=== PATIENT | female | born 1940 | race Caucasian/White ===

== ENCOUNTER 2018-03-14 15:31 | Emergency (ER) | payer MEDICARE, SELFPAY ==
[2018-03-14 15:34] VITALS: BP 104/58; PULSE 70; RESP 18; TEMP 37.2; O2SAT 97
--- NOTE | 2018-03-14 15:47 | W.ED.GENAD ---
Discharge Plan Discharge Details Chief Complaint: Urinary Clinical Impression: Cystitis Reason For Visit: dysuria ED Provider: Jason Sethi Disposition Patient Disposition: HOME Home Meds and New Rx's Prescriptions: New nitrofurantoin monohyd/m-cryst [Macrobid] 100 mg capsule 100 mg PO BID Qty: 14 RF: 0 Continue simethicone [Gas Relief] 125 MG capsule 125 mg PO DAILY RF: 0 calcium carbonate 1.5 G tablet 1.5 g PO DAILY RF: 0 docusate sodium [Colace] 100 MG capsule 100 mg PO BID RF: 0 aspirin [Aspirin Low-Strength] 81 MG tablet,chewable 81 mg PO DAILY RF: 0 lorazepam 1 MG tablet 1 mg PO PRN PRNRF: 0 estradiol [Estrace] 42.5 GM cream 42.5 gm VG PRN PRNRF: 0 reatdyco-fmx-QE-lycopen-lutein [Centrum Silver] 1 EACH tablet 1 tab PO DAILY RF: 0 rivastigmine [Exelon] 1 EACH patch 24 hour 1 patch Transdermal DAILY RF: 0 midodrine 5 MG tablet 5 mg PO BID RF: 0 propranolol 10 MG tablet 10 mg PO DAILY PRNRF: 0 lorazepam 1 MG tablet 1 mg PO DAILY PRNRF: 0 fluoxetine [Prozac] 20 MG capsule 20 mg PO DAILY RF: 0 cholecalciferol (vitamin D3) [Vitamin D3] 1,000 UNIT capsule 1,000 unit PO DAILY RF: 0 vitamin O43-hicci acid 1 EACH tablet 1 ea PO DAILY RF: 0 dextromethorphan-guaifenesin [Mucinex DM] 1 EACH tablet extended release 12 hr 1 tab PO PRN PRNRF: 0 prednisone 20 MG tablet 20 mg PO DAILY Qty: 7 RF: 0 albuterol sulfate [ProAir HFA] 200 PUFF HFA aerosol inhaler 1 - 2 puff Inhalation Q6H PRN PRNQty: 1 RF: 0 ropinirole [Requip] 3 MG tablet 1 tab PO DAILY RF: 0 mirtazapine [Remeron] 15 MG tablet 1 tab PO DAILY RF: 0 alendronate [Fosamax] 70 MG tablet 1 tab PO RF: 0 montelukast [Singulair] 10 MG tablet 1 tab PO DAILY RF: 0 omega-3 fatty acids-fish oil [Fish Oil] 1 EACH capsule 1 cap PO DAILY RF: 0 ranitidine HCl [Zantac Maximum Strength] 150 MG tablet 1 tab PO PRN PRNRF: 0 Discharge Instructions Instructions: Urinary Tract Infection in Women (ED) Discharge Data Discharge Physician: Jason Sethi Medical Decision Making MDM Narrative Medical decision making narrative: Patient has had 2 days of burning with urination and frequency. Denies any fevers, back pain or abdomina lpain and has n ocva tenderness and appears well so doubt pyelo or sepsis. will obtain ua to eval for uti labs consistent with uti, remains stable. Will start macrobid, advised she needs to come back to the ED if she develops fevers, persistent vomit or back pain Differential Diagnosis uti, cystitis Lab Data Lab results reviewed: Yes I reviewed the patient's lab results. HPI - General Adult General Mode of arrival: ambulatory. Date/Time Provider Initiated Documentation: 03/14/18 15:41. Limitations to Documentation: no limitations. Information obtained by: patient. History of Present Illness 77 year old F presents to the emergency department with the chief complaint of burning with urination, described as moderate, with intensity rated at 4. Quality is described as burning, and is localized to the genitals (when urinating). Patient reports no radiation. Patient started experiencing this day(s) (2) and it has been constant. No relieving factors improve symptom(s), No exacerbating factors reported . Patient notes no other symptoms.. Patient did receive the following treatments prior to arrival, none Related Data Home Medications Medication Instructions Recorded Confirmed aspirin [Aspirin Low-Strength] 81 mg PO DAILY 12/12/14 08/20/17 calcium carbonate 1.5 g PO DAILY 12/12/14 08/20/17 docusate sodium [Colace] 100 mg PO BID 12/12/14 08/20/17 estradiol [Estrace] 42.5 gm VG PRN PRN 12/12/14 08/02/17 lorazepam 1 mg PO PRN PRN 12/12/14 08/02/17 ovovrehe-ckr-HW-lycopen-lutein 1 tab PO DAILY 12/12/14 08/20/17 [Centrum Silver] rivastigmine [Exelon] 1 patch TRANSDERMAL DAILY 12/12/14 08/20/17 simethicone [Gas Relief] 125 mg PO DAILY 12/12/14 08/20/17 dextromethorphan-guaifenesin 1 tab PO PRN PRN 07/16/16 08/02/17 [Mucinex DM] alendronate [Fosamax] 1 tab PO 08/02/17 mirtazapine [Remeron] 1 tab PO DAILY 08/02/17 08/02/17 montelukast [Singulair] 1 tab PO DAILY 08/02/17 08/20/17 omega-3 fatty acids-fish oil [Fish 1 cap PO DAILY 08/02/17 08/20/17 Oil] ranitidine HCl [Zantac Maximum 1 tab PO PRN PRN 08/02/17 08/02/17 Strength] ropinirole [Requip] 1 tab PO DAILY 08/02/17 08/20/17 cholecalciferol (vitamin D3) 1,000 unit PO DAILY 08/20/17 08/20/17 [Vitamin D3] fluoxetine [Prozac] 20 mg PO DAILY 08/20/17 08/20/17 lorazepam 1 mg PO DAILY PRN 08/20/17 08/20/17 midodrine 5 mg PO BID 08/20/17 08/20/17 propranolol 10 mg PO DAILY PRN 08/20/17 08/20/17 vitamin B43-vsnxj acid 1 ea PO DAILY 08/20/17 08/20/17 Previous Rx's Medication Instructions Recorded albuterol sulfate [ProAir HFA] 1 - 2 puff INHALATION Q6H PRN PRN 07/16/16 #1 inh prednisone 20 mg PO DAILY #7 tablet 07/16/16 nitrofurantoin monohyd/m-cryst 100 mg PO BID #14 cap 03/14/18 [Macrobid] Allergies Allergy/AdvReac Type Severity Reaction Status Date / Time rivastigmine [From Exelon] Allergy Mild Nausea Unverified 03/14/18 15:36 donepezil HCl [From Aricept] Allergy Unverified 03/14/18 15:36 sertraline Allergy Unverified 03/14/18 15:36 General Stated Complaint: Urinary KAILASH: 4 Review of Systems Review of Systems All systems reviewed & are unremarkable except as noted in HPI and below Constitutional Denies chills, Denies fever(s) and Denies weakness Eyes Patient Denies loss of vision ENT Denies change in voice Cardiovascular Denies chest pain and Denies dyspnea Respiratory Denies dyspnea Gastrointestinal Denies abdominal pain, Denies nausea and Denies vomiting Genitourinary Reports dysuria Musculoskeletal Denies joint swelling Integumentary/Breasts Denies rash Neurologic Denies loss of vision and Denies weakness Psychiatric Denies depression Endocrine Denies cold intolerance and Denies heat intolerance Allergic/Immunologic Reports urticaria PFSH Social History Smoking/Tobacco Use Status: Never Exam Const General: no acute distress Orientation: alert HENMT Head: normal to inspection Ears: external ears normal General nose exam: external nose normal Mouth: moist mucous membranes Eyes General: appearance normal, both eyes and all related structures Neck Neck: normal visual inspection Resp Effort & Inspection: normal respiratory effort and able to speak in complete sentences Cardio Rate: regular rate GI Palpation: soft and nontender Back/Spine/Pelvis Back: no CVA tenderness Skin General skin exam: no rashes or lesions noted Neuro General: alert and oriented x3 Extrem General: normal to inspection Psych Mental Status: mental status grossly normal Course Vital Signs Temperature 37.2 C 03/14/18 15:34 Pulse 70 03/14/18 15:34 Respiratory Rate 18 03/14/18 15:34 Blood Pressure 104/58 L 03/14/18 15:34 Pulse Oximetry 97 03/14/18 15:34 Temperature 37.2 C 03/14/18 15:34 Pulse 70 03/14/18 15:34 Respiratory Rate 18 03/14/18 15:34 Blood Pressure 104/58 L 03/14/18 15:34 Pulse Oximetry 97 03/14/18 15:34
--- NOTE | 2018-03-14 15:50 | ED.GENADUL_ITS ---
Discharge Plan Discharge Details Chief Complaint: Urinary Clinical Impression: Cystitis Reason For Visit: dysuria ED Provider: Jason Sethi Disposition Patient Disposition: HOME Home Meds and New Rx's Prescriptions: New nitrofurantoin monohyd/m-cryst [Macrobid] 100 mg capsule 100 mg PO BID Qty: 14 RF: 0 Continue simethicone [Gas Relief] 125 MG capsule 125 mg PO DAILY RF: 0 calcium carbonate 1.5 G tablet 1.5 g PO DAILY RF: 0 docusate sodium [Colace] 100 MG capsule 100 mg PO BID RF: 0 aspirin [Aspirin Low-Strength] 81 MG tablet,chewable 81 mg PO DAILY RF: 0 lorazepam 1 MG tablet 1 mg PO PRN PRNRF: 0 estradiol [Estrace] 42.5 GM cream 42.5 gm VG PRN PRNRF: 0 husyngwe-lzt-DH-lycopen-lutein [Centrum Silver] 1 EACH tablet 1 tab PO DAILY RF: 0 rivastigmine [Exelon] 1 EACH patch 24 hour 1 patch Transdermal DAILY RF: 0 midodrine 5 MG tablet 5 mg PO BID RF: 0 propranolol 10 MG tablet 10 mg PO DAILY PRNRF: 0 lorazepam 1 MG tablet 1 mg PO DAILY PRNRF: 0 fluoxetine [Prozac] 20 MG capsule 20 mg PO DAILY RF: 0 cholecalciferol (vitamin D3) [Vitamin D3] 1,000 UNIT capsule 1,000 unit PO DAILY RF: 0 vitamin X21-mrykh acid 1 EACH tablet 1 ea PO DAILY RF: 0 dextromethorphan-guaifenesin [Mucinex DM] 1 EACH tablet extended release 12 hr 1 tab PO PRN PRNRF: 0 prednisone 20 MG tablet 20 mg PO DAILY Qty: 7 RF: 0 albuterol sulfate [ProAir HFA] 200 PUFF HFA aerosol inhaler 1 - 2 puff Inhalation Q6H PRN PRNQty: 1 RF: 0 ropinirole [Requip] 3 MG tablet 1 tab PO DAILY RF: 0 mirtazapine [Remeron] 15 MG tablet 1 tab PO DAILY RF: 0 alendronate [Fosamax] 70 MG tablet 1 tab PO RF: 0 montelukast [Singulair] 10 MG tablet 1 tab PO DAILY RF: 0 omega-3 fatty acids-fish oil [Fish Oil] 1 EACH capsule 1 cap PO DAILY RF: 0 ranitidine HCl [Zantac Maximum Strength] 150 MG tablet 1 tab PO PRN PRNRF: 0 Discharge Instructions Instructions: Urinary Tract Infection in Women (ED) Discharge Data Discharge Physician: Jason Sethi Medical Decision Making MDM Narrative Medical decision making narrative: Patient has had 2 days of burning with urination and frequency. Denies any fevers, back pain or abdomina lpain and has n ocva tenderness and appears well so doubt pyelo or sepsis. will obtain ua to eval for uti labs consistent with uti, remains stable. Will start macrobid, advised she needs to come back to the ED if she develops fevers, persistent vomit or back pain Differential Diagnosis uti, cystitis Lab Data Lab results reviewed: Yes I reviewed the patient's lab results. HPI - General Adult General Mode of arrival: ambulatory . Date/Time Provider Initiated Documentation: 03/14/18 15:41 . Limitations to Documentation: no limitations . Information obtained by: patient . History of Present Illness 77 year old F presents to the emergency department with the chief complaint of burning with urination, described as moderate, with intensity rated at 4. Quality is described as burning, and is localized to the genitals (when urinating). Patient reports no radiation. Patient started experiencing this day(s) (2) and it has been constant. No relieving factors improve symptom(s) , No exacerbating factors reported . Patient notes no other symptoms.. Patient did receive the following treatments prior to arrival, none Related Data Home Medications Medication Instructions Recorded Confirmed aspirin [Aspirin Low-Strength] 81 mg PO DAILY 12/12/14 08/20/17 calcium carbonate 1.5 g PO DAILY 12/12/14 08/20/17 docusate sodium [Colace] 100 mg PO BID 12/12/14 08/20/17 estradiol [Estrace] 42.5 gm VG PRN PRN 12/12/14 08/02/17 lorazepam 1 mg PO PRN PRN 12/12/14 08/02/17 kdbaxxdb-zvp-FX-lycopen-lutein 1 tab PO DAILY 12/12/14 08/20/17 [Centrum Silver] rivastigmine [Exelon] 1 patch TRANSDERMAL DAILY 12/12/14 08/20/17 simethicone [Gas Relief] 125 mg PO DAILY 12/12/14 08/20/17 dextromethorphan-guaifenesin 1 tab PO PRN PRN 07/16/16 08/02/17 [Mucinex DM] alendronate [Fosamax] 1 tab PO 08/02/17 mirtazapine [Remeron] 1 tab PO DAILY 08/02/17 08/02/17 montelukast [Singulair] 1 tab PO DAILY 08/02/17 08/20/17 omega-3 fatty acids-fish oil [Fish 1 cap PO DAILY 08/02/17 08/20/17 Oil] ranitidine HCl [Zantac Maximum 1 tab PO PRN PRN 08/02/17 08/02/17 Strength] ropinirole [Requip] 1 tab PO DAILY 08/02/17 08/20/17 cholecalciferol (vitamin D3) 1,000 unit PO DAILY 08/20/17 08/20/17 [Vitamin D3] fluoxetine [Prozac] 20 mg PO DAILY 08/20/17 08/20/17 lorazepam 1 mg PO DAILY PRN 08/20/17 08/20/17 midodrine 5 mg PO BID 08/20/17 08/20/17 propranolol 10 mg PO DAILY PRN 08/20/17 08/20/17 vitamin Y62-gkmvt acid 1 ea PO DAILY 08/20/17 08/20/17 Previous Rx's Medication Instructions Recorded albuterol sulfate [ProAir HFA] 1 - 2 puff INHALATION Q6H PRN PRN 07/16/16 #1 inh prednisone 20 mg PO DAILY #7 tablet 07/16/16 nitrofurantoin monohyd/m-cryst 100 mg PO BID #14 cap 03/14/18 [Macrobid] Allergies Allergy/AdvReac Type Severity Reaction Status Date / Time rivastigmine [From Exelon] Allergy Mild Nausea Unverified 03/14/18 15:36 donepezil HCl [From Aricept] Allergy Unverified 03/14/18 15:36 sertraline Allergy Unverified 03/14/18 15:36 General Stated Complaint: Urinary KAILASH: 4 Review of Systems Review of Systems All systems reviewed & are unremarkable except as noted in HPI and below Constitutional Denies chills, Denies fever(s) and Denies weakness Eyes Patient Denies loss of vision ENT Denies change in voice Cardiovascular Denies chest pain and Denies dyspnea Respiratory Denies dyspnea Gastrointestinal Denies abdominal pain, Denies nausea and Denies vomiting Genitourinary Reports dysuria Musculoskeletal Denies joint swelling Integumentary/Breasts Denies rash Neurologic Denies loss of vision and Denies weakness Psychiatric Denies depression Endocrine Denies cold intolerance and Denies heat intolerance Allergic/Immunologic Reports urticaria PFSH Social History Smoking/Tobacco Use Status: Never Exam Const General: no acute distress Orientation: alert HENMT Head: normal to inspection Ears: external ears normal General nose exam: external nose normal Mouth: moist mucous membranes Eyes General: appearance normal, both eyes and all related structures Neck Neck: normal visual inspection Resp Effort & Inspection: normal respiratory effort and able to speak in complete sentences Cardio Rate: regular rate GI Palpation: soft and nontender Back/Spine/Pelvis Back: no CVA tenderness Skin General skin exam: no rashes or lesions noted Neuro General: alert and oriented x3 Extrem General: normal to inspection Psych Mental Status: mental status grossly normal Course Vital Signs Temperature 37.2 C 03/14/18 15:34 Pulse 70 03/14/18 15:34 Respiratory Rate 18 03/14/18 15:34 Blood Pressure 104/58 L 03/14/18 15:34 Pulse Oximetry 97 03/14/18 15:34 Temperature 37.2 C 03/14/18 15:34 Pulse 70 03/14/18 15:34 Respiratory Rate 18 03/14/18 15:34 Blood Pressure 104/58 L 03/14/18 15:34 Pulse Oximetry 97 03/14/18 15:34
[2018-03-14 15:53] LABS: Bilirubin Negative (Negative); Blood Large (Negative); Glucose Negative (Negative); Ketones Negative (Negative); Leukocyte Esterase Large (Negative); Nitrite Negative (Negative); Specific Gravity 1.015 (1.005-1.025); Urobilinogen 0.2 EU/dL (Up TO 0.2); pH 6.5 (5-8)
[2018-03-14 15:54] LABS: Clarity Sl Cloudy
[2018-03-14 15:58] LABS: Bacteria Rare HPF (Negative); Crystals Negative HPF (Negative); Epithelial Cells Negative HPF (Negative); Mucus Negative (Negative); Other Cells Negative (Negative); RBC >50 (0-2); WBC >50 HPF (0-5)
[2018-03-14 15:59] LABS: C & S Indicated? Yes; Casts Negative LPF (Negative)
[2018-03-14 16:09] VITALS: BP 104/58; PULSE 70; RESP 18; TEMP 37.2; O2SAT 97
== END 2018-03-14 16:09 | disposition home or self-care (01) ==
LOC: ER 16:13
PROVIDERS: Emergency Provider Emergency Medicine
DX: N30.91 Cystitis, unspecified with hematuria (principal); B96.20 Unspecified Escherichia coli [E. coli] as the cause of diseases classified elsewhere; I10 Essential (primary) hypertension
CPT/HCPCS: 87077; 99283; 81003; 81015; 87086; 87186

== ENCOUNTER 2018-09-20 11:05 | Outpatient (CLI) | payer MEDICARE, SELFPAY ==
[2018-09-20 13:35] LABS: Anion Gap 6.5 mmol/L (3-11); BUN 23 mg/dL (7-18); CO2 31.5 mmol/L (21.0-32.0); CREATININE 1.01 mg/dL (0.55-1.02); Calcium 9.4 mg/dL (8.5-10.1); Chloride 103 mmol/L (98-107); Estimated GFR 53.15 (mL/min/1.73m2); Glucose 79 mg/dL (70-100); Potassium 4.7 mmol/L (3.5-5.1); Sodium 141 mmol/L (136-145)
== END 2018-09-20 11:25 ==
PROVIDERS: PCP Family Medicine; Visit Provider Nurse Practitioner Family
DX: M79.674 Pain in right toe(s) (principal)
CPT/HCPCS: 36415; 80048; 84550

== ENCOUNTER 2019-02-04 15:18 | Outpatient (REF) | payer MEDICARE, SELFPAY ==
[2019-02-07 11:41] LABS: Lyme Ab w Rflx to Lyme Confirm Negative
== END 2019-02-04 15:38 ==
LOC: NCHCN 15:18
PROVIDERS: PCP Family Medicine; Visit Provider Family Medicine
DX: T14.8XXA Other injury of unspecified body region, initial encounter (principal); Z11.8 Encounter for screening for other infectious and parasitic diseases
CPT/HCPCS: 86618

== ENCOUNTER 2019-07-01 10:39 | Outpatient (REF) | payer MEDICARE, SELFPAY ==
[2019-07-01 19:15] LABS: HCT 39.8 % (36.0-46.0); HGB 13.3 g/dL (12.0-15.5); Mean Corp. HGB Concentration 33.4 g/dL (32.0-36.0); Mean Corpuscular Volume 89.8 fL (80-95); Mean Platelet Volume 10.2 fL (8.0-11.0); Platelet Count 176 x1000/uL (130-400); RBC 4.43 m/cumm (4.00-5.20); RBC Distribution Width 12.9 % (11.7-14.6); White Blood Cell Count 4.38 k/cumm (4.4-10.8)
[2019-07-01 19:24] LABS: ALT 26 U/L (14-59); AST 23 U/L (15-37); Albumin 3.7 g/dL (3.4-5.0); Alkaline Phosphatase 38 U/L (46-116); Anion Gap 6.8 mmol/L (3-11); BUN 23 mg/dL (7-18); Bilirubin, Total 0.4 mg/dL (0.2-1.0); C-Reactive Protein 0.15 mg/dL (0.0-0.3); CO2 28.2 mmol/L (21.0-32.0); Calcium 8.6 mg/dL (8.5-10.1); Chloride 105 mmol/L (98-107); Creatine Kinase 102 U/L (26-192); Glucose 83 mg/dL (74-106); Potassium 4.3 mmol/L (3.5-5.1); Sodium 140 mmol/L (136-145); Total Protein 6.6 g/dL (6.4-8.2)
[2019-07-01 21:01] LABS: ESR 10 mm/hr (0-30)
[2019-07-04 15:19] LABS: Albumin 60.4 % (55.8-66.1); Total Protein 6.7 g/dL (6.3-8.2)
== END 2019-07-01 10:59 ==
LOC: NCHCN 10:39
PROVIDERS: PCP Family Medicine; Visit Provider Family Medicine
DX: M79.10 Myalgia, unspecified site (principal); R53.1 Weakness; M79.606 Pain in leg, unspecified
CPT/HCPCS: 80053; 82550; 85027; 85652; 84165; 86140

== ENCOUNTER → 2019-07-20 08:51 | Outpatient (BNVA) | payer MEDICARE, SELFPAY | PROVIDERS: PCP Family Medicine; Referring Provider Family Medicine; Visit Provider Psychiatry & Neurology Neurology | DX: R29.898 Other symptoms and signs involving the musculoskeletal system (principal); G90.09 Other idiopathic peripheral autonomic neuropathy; I95.1 Orthostatic hypotension; R41.3 Other amnesia | CPT/HCPCS: 99205; 99215 ==

== ENCOUNTER 2019-08-26 15:45 | Emergency (ER) | payer MEDICARE, SELFPAY ==
[2019-08-26 15:51] VITALS: BP 166/78; PULSE 78; RESP 14; TEMP 36.4; O2SAT 99
--- NOTE | 2019-08-26 16:00 | DI.CT_ITS ---
EXAM: CT HEAD CERV SPINE FACIAL WO CLINICAL HISTORY: fall, facial trauma, pain, upper neck pain TECHNIQUE: The exam was performed without contrast. COMPARISON: No exams were available for comparison FINDINGS: CT head: The ventricles and sulci are consistent with the patient's age. There is no acute intracranial hemor rhage, midline shift or mass effect. The ventricles are intact. The basilar cisterns are patent. T he calvarium is intact. There is mild left mucosal thickening. Remaining visualized paranasal sinus es are clear as are the mastoid air cells. CT cervical spine: The odontoid is intact. The lateral masses are well aligned. There is no acute fracture or subluxat ion. There are degenerative changes seen throughout the cervical spine. There is straightening of t he normal cervical lordosis. This may be due to patient positioning or muscle spasm. The prevertebr al soft tissues are unremarkable. The lung apices are clear. CT scan of the face: No acute facial fracture is identified. There is no evidence of an orbital fracture. The orbits and retro-orbital soft tissues are unremarkable. There is mucosal thickening in several left ethmoid ai r cells. No fluid levels are seen. The soft tissues are unremarkable IMPRESSION: 1. No acute intracranial process. 2. No acute fracture or subluxation in the cervical spine. 3. No acute facial fracture.
--- NOTE | 2019-08-26 16:01 | W.ED.GENAD ---
Discharge Plan Disposition Patient Disposition: HOME Condition: Improving Discharge Details Chief Complaint: Trauma Clinical Impression: Abrasion of face, Facial contusion Primary Care Provider: Shawna Couch V ED Provider: Darrick Regalado Home Meds and New Rx's Prescriptions: Continued calcium-magnesium Tablet 1 tab PO BID RF: 0 gabapentin 300 mg capsule 300 mg PO QHS Qty: 90 RF: 3 Gas-X 62.5 mg strip 1 strip PO DIRECTED PRNRF: 0 magnesium oxide 400 mg (241.3 mg magnesium) tablet 400 mg PO DAILY RF: 0 rivastigmine [Exelon] 4.6 mg/24 hr patch 24 hour 4.6 mg TD DAILY RF: 0 epinephrine [EpiPen 2-Adebayo] 0.3 mg/0.3 mL auto-injector 0.3 mg IM ONCE RF: 0 aspirin [Aspirin Low-Strength] 81 MG tablet,chewable 81 mg PO DAILY RF: 0 Centrum Silver 1 EACH tablet 1 tab PO DAILY RF: 0 lorazepam 1 MG tablet 1 mg PO DAILY PRNRF: 0 cholecalciferol (vitamin D3) [Vitamin D3] 1,000 UNIT capsule 1,000 unit PO DAILY RF: 0 vitamin W69-cqxwy acid 1 EACH tablet 1 ea PO DAILY RF: 0 ropinirole [Requip] 3 MG tablet 1 tab PO DAILY RF: 0 mirtazapine [Remeron] 15 MG tablet 1 tab PO DAILY RF: 0 alendronate [Fosamax] 70 MG tablet 1 tab PO RF: 0 Fish Oil 1 EACH capsule 1 cap PO DAILY RF: 0 Discharge Instructions Instructions: Head Injury (ED), Contusion in Adults (ED) Additional Instructions: You will likely have increased muscular soreness tomorrow morning. You may develop increased bruising over 1 to 2 days time. Continue all regularly prescribed medications. May use Tylenol and/or ibuprofen if needed for aches or pains. Return to the ER for any acute concerns. Medical Decision Making 79-year-old female tripped on a piece of ice falling forward and landing on her face without a loss of consciousness. She suffered abrasions. She denies prodromal symptoms. She states that she is otherwise been well. Exam reveals abrasions and tenderness of the face. Patient's tetanus status is up-to-date as of 2011. Referred for CT scan of the facial bones, head, cervical spine. Imaging studies: No evidence of intracranial or facial injury. No acute fracture or subluxation appreciated. Findings associated with muscle spasm or positioning. Discussed with patient. She is stable and appropriate for trial of outpatient management. She understands indications to return for reevaluation. [facility] General Mode of arrival: ambulatory. Date/Time Provider Initiated Documentation: 08/26/19 15:46. Limitations to Documentation: no limitations. Information obtained by: patient. History of Present Illness 79 year old F presents to the emergency department with the chief complaint of Trip and fall, facial injury, no loss of consciousness, described as mild, Quality is described as dull, and is localized to the head and face. Patient reports no radiation. Patient started experiencing this hour(s) and it has been constant. No relieving factors improve symptom(s), No exacerbating factors reported . Patient notes denies chest pain, fever/chills, malaise, syncope and weakness. Patient did receive the following treatments prior to arrival, none Related Data Home Medications Medication Instructions Recorded Confirmed Centrum Silver 1 tab PO DAILY 12/12/14 07/20/19 aspirin [Aspirin Low-Strength] 81 mg PO DAILY 12/12/14 07/20/19 Fish Oil 1 cap PO DAILY 08/02/17 07/20/19 alendronate [Fosamax] 1 tab PO 08/02/17 07/20/19 mirtazapine [Remeron] 1 tab PO DAILY 08/02/17 07/20/19 ropinirole [Requip] 1 tab PO DAILY 08/02/17 07/20/19 cholecalciferol (vitamin D3) 1,000 unit PO DAILY 08/20/17 07/20/19 [Vitamin D3] lorazepam 1 mg PO DAILY PRN 08/20/17 07/20/19 vitamin Y17-qsbdz acid 1 ea PO DAILY 08/20/17 07/20/19 epinephrine 0.3 mg/0.3 mL 0.3 mg IM ONCE 07/18/19 07/20/19 injection, auto-injector magnesium oxide 400 mg (241.3 mg 400 mg PO DAILY 07/18/19 07/20/19 magnesium) tablet rivastigmine 4.6 mg TD DAILY 07/18/19 07/20/19 simethicone 62.5 mg oral strips 1 strip PO DIRECTED PRN each 07/18/19 07/20/19 calcium-magnesium 1 tab PO BID tab 07/20/19 07/20/19 gabapentin 300 mg capsule 300 mg PO QHS #90 cap 07/20/19 07/20/19 Previous Rx's Medication Instructions Recorded gabapentin 300 mg capsule 300 mg PO QHS #90 cap 07/20/19 Allergies Allergy/AdvReac Type Severity Reaction Status Date / Time hydroxyzine Allergy Severe Verified 08/26/19 15:55 cetirizine [From Zyrtec] Allergy Mild Verified 08/26/19 15:55 rivastigmine [From Exelon] Allergy Mild Nausea Unverified 08/26/19 15:55 donepezil HCl [From Aricept] Allergy Unverified 08/26/19 15:55 sertraline Allergy Unverified 08/26/19 15:55 General Stated Complaint: Trauma KAILASH: 3 Review of Systems Narrative: No weakness or tingling of the upper extremity, no back pain. Denies loss of consciousness. Denies prodromal symptoms. 6 systems reviewed and otherwise negative. 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 Pleasant, well groomed, interactive. HEAD: Normocephalic, atraumatic ENT: Abrasion to bridge of nose, right cheek and chin. No midface instability or tenderness. Sensation intact throughout including infraorbital. Mucous membranes moist, oropharynx unremarkable, External ear exam unremarkable EYES: PERRL, EOMI NECK: Full ROM, no SHARON, no menigismus CHEST/RESP: Nontender, clear to auscultation bilateral, no wheeze/rhonchi/rales CARDIOVASCULAR: RRR, no murmur, rub tg. 2+ Rad pulse bilateral ABDOMEN: Soft, nontender, no mass. +Bowel sounds EXT: Full ROM, no edema, no rash Neuro: Grossly normal neurologic exam, conversant, interactive. Psych: Speech fluent, thoughts congruent, affect normal Course Vital Signs Vital signs: Vital Signs Temperature 36.4 C L 08/26/19 15:51 Pulse 78 08/26/19 15:51 Respiratory Rate 14 08/26/19 15:51 Blood Pressure 166/78 H 08/26/19 15:51 Pulse Oximetry 99 08/26/19 15:51 Temperature 36.4 C L 08/26/19 15:51 Temperature Source Skin 08/26/19 15:51 Pulse 78 08/26/19 15:51 Respiratory Rate 14 08/26/19 15:51 Respiratory Effort Non-Labored 08/26/19 15:56 Respiratory Depth Normal 08/26/19 15:56 Respiratory Pattern Normal 08/26/19 15:56 Blood Pressure 166/78 H 08/26/19 15:51 Blood Pressure Position Sitting 08/26/19 15:51 Pulse Oximetry 99 08/26/19 15:51 Oxygen Delivery Method Room Air 08/26/19 15:51 Oxygen Flow Rate 0 08/26/19 15:51 Pain Level 5 08/26/19 15:56
--- NOTE | 2019-08-26 17:05 | DI.VRAD_ITS ---
PROCEDURE INFORMATION: Exam: CT Head Without Contrast Exam date and time: 08/26/2019 4:12 PM Age: 79 years old Clinical indication: Face pain and other: Upper neck pain; Patient HX: Fall, facial trauma , pain, upper neck pain TECHNIQUE: Imaging protocol: Computed tomography of the head without contrast. COMPARISON: No relevant prior studies available. FINDINGS: Brain: There is no acute hemorrhage, mass effect, or extra-axial fluid collections. The cortical sulci are within normal limits for age. There is focal hypodensity in the left side of the mark but I believe this is part of the beam hardening artifact from the petrous pyramids Ventricles: The ventricles are within normal limits for age. Bones/joints: Unremarkable. No acute fracture. Sinuses: Patient is edentulous moderate mucosal thickening in many of the left ethmoidal air cells. The remainder of the visualized paranasal sinuses are well aerated. Mastoid air cells: Visualized mastoid air cells are well aerated. Soft tissues: Unremarkable. IMPRESSION: 1. No evidence of an acute intracranial injury. 2. Mild inflammation in the left ethmoidal sinus. PROCEDURE INFORMATION: Exam: CT Maxillofacial Without Contrast Exam date and time: 08/26/2019 4:12 PM Age: 79 years old Clinical indication: Face pain and other: Upper neck pain; Patient HX: Fall, facial trauma , pain, upper neck pain TECHNIQUE: Imaging protocol: Computed tomography images of the face without contrast. COMPARISON: No relevant prior studies available. FINDINGS: Orbits: The medial galeas and floor of the orbits are intact. No abnormality of the orbits. Auditory system: Moderate amount of cerumen in the external auditory canals bilaterally Sinuses: Moderate mucosal thickening in the several of the left-sided ethmoidal air cells. Minimal mucosal thickening at the infundibulum of the left maxillary sinus. Bones/joints: No acute fracture of the main of the visualized facial bones. Soft tissues: Unremarkable. IMPRESSION: No acute facial fracture. PROCEDURE INFORMATION: Exam: CT Cervical Spine Without Contrast Exam date and time: 08/26/2019 4:12 PM Age: 79 years old Clinical indication: Face pain and other: Upper neck pain; Patient HX: Fall, facial trauma , pain, upper neck pain TECHNIQUE: Imaging protocol: Computed tomography images of the cervical spine without contrast. COMPARISON: No relevant prior studies available. FINDINGS: Of the atlantoaxial joint. Moderate loss of disc height at C5-C6. However there is a minimal disc osteophyte complex mildly narrowing the right neural foramen. The remainder of the levels show lesser degenerative changes. Straightening of the normal cervical lordosis. No prevertebral soft tissue swelling. No acute fracture or subluxation. Prominent degenerative changes IMPRESSION: 1. No acute fracture subluxation. There are findings sometimes associated with muscle spasm or patient positioning. 2. The mild degenerative changes Dictated and Authenticated by: Jason Byrd MD. Ordering:GRANT Hollingsworth MD
[2019-08-26] MEDS: Ibuprofen 800 MG TAB PO (17:13)
== END 2019-08-26 17:16 | disposition home or self-care (01) ==
PROVIDERS: Emergency Provider Emergency Medicine; PCP Family Medicine
DX: S00.81XA Abrasion of other part of head, initial encounter (principal); S09.90XA Unspecified injury of head, initial encounter; W01.198A Fall on same level from slipping, tripping and stumbling with subsequent striking against other object, initial encounter
CPT/HCPCS: 99284; 70450; 70486; 72125

== ENCOUNTER 2019-10-17 11:09 | Outpatient (REF) | payer MEDICARE, SELFPAY ==
[2019-10-17 22:40] LABS: ALT 28 U/L (14-59); AST 22 U/L (15-37)
== END 2019-10-17 11:29 ==
LOC: NCHCN 11:09
PROVIDERS: PCP Family Medicine; Visit Provider Family Medicine
DX: L60.9 Nail disorder, unspecified (principal); Z51.81 Encounter for therapeutic drug level monitoring
CPT/HCPCS: 84450; 84460

== ENCOUNTER 2020-04-06 14:14 | Outpatient (REF) | payer MEDICARE, SELFPAY ==
[2020-04-10 23:39] LABS: Patient Race White; SARS-CoV-2 RNA Undetected (Undetected); SARS-CoV-2 Specimen Source Nasopharynx
== END 2020-04-06 14:34 ==
LOC: NCHCN 14:14
PROVIDERS: PCP Family Medicine; Visit Provider Family Medicine
DX: Z11.59 Encounter for screening for other viral diseases (principal)
CPT/HCPCS: U0003

== ENCOUNTER → 2020-04-23 13:55 | Outpatient (BNVA) | payer MEDICARE, SELFPAY | PROVIDERS: PCP Family Medicine; Referring Provider Family Medicine; Visit Provider Surgery | DX: R13.10 Dysphagia, unspecified (principal) | CPT/HCPCS: 99203; 99213 ==

== ENCOUNTER 2020-05-08 07:58 | Outpatient (CLI) | payer MEDICARE, SELFPAY ==
[2020-05-12 13:19] LABS: COVID-19 RT-PCR Result Negative
== END 2020-05-08 08:18 ==
PROVIDERS: PCP Family Medicine; Visit Provider Surgery
DX: Z11.59 Encounter for screening for other viral diseases (principal); Z01.818 Encounter for other preprocedural examination
CPT/HCPCS: U0003

== ENCOUNTER 2020-05-11 09:16 | Day surgery (SDC) | payer MEDICARE, SELFPAY ==
[2020-05-11 09:34] VITALS: BP 144/88; PULSE 82; RESP 18; TEMP 36.4; O2SAT 98
[2020-05-11] MEDS: Lactated Ringers 1,000 ML 80 ML IV (09:58)
[2020-05-11] MEDS: Ondansetron 4 MG/2 ML VIAL IVP (10:00)
--- NOTE | 2020-05-11 10:05 | W.PM.DSUDISC ---
Discharge Plan Disposition Patient Disposition: HOME Condition: Good Discharge Details Reason For Visit: EGD, Colonoscopy Attending Provider: Peace Francois Primary Care Provider: Shawna Couch V Home Meds and New Rx's Prescriptions: Continued calcium-magnesium Tablet 1 tab PO BID RF: 0 gabapentin 300 mg capsule 300 mg PO QHS Qty: 90 RF: 3 Gas-X 62.5 mg strip 1 strip PO DIRECTED PRNRF: 0 magnesium oxide 400 mg (241.3 mg magnesium) tablet 400 mg PO DAILY RF: 0 rivastigmine [Exelon] 4.6 mg/24 hr patch 24 hour 4.6 mg TD DAILY RF: 0 clobetasol 0.05 % cream 1 applic topical BID RF: 0 midodrine 5 mg tablet 5 mg PO BID RF: 0 terbinafine HCl 250 mg tablet 250 mg PO DAILY RF: 0 ibuprofen 800 mg tablet 800 mg PO BID RF: 0 aspirin [Aspirin Low-Strength] 81 MG tablet,chewable 81 mg PO DAILY RF: 0 Centrum Silver 1 EACH tablet 1 tab PO DAILY RF: 0 lorazepam 1 MG tablet 1 mg PO DAILY PRNRF: 0 cholecalciferol (vitamin D3) [Vitamin D3] 1,000 UNIT capsule 1,000 unit PO DAILY RF: 0 vitamin Q11-lmtdd acid 1 EACH tablet 1 ea PO DAILY RF: 0 ropinirole [Requip] 3 MG tablet 1 tab PO DAILY RF: 0 mirtazapine [Remeron] 15 MG tablet 1 tab PO DAILY RF: 0 alendronate [Fosamax] 70 MG tablet 1 tab PO QWEEK RF: 0 Fish Oil 1 EACH capsule 1 cap PO DAILY RF: 0 Discontinued bisacodyl [Dulcolax (bisacodyl)] 5 mg tablet,delayed release (DR/EC) 5 mg PO ONCE Qty: 4 RF: 0 polyethylene glycol 3350 17 gram/dose powder 17 g PO ONCE Qty: 238 RF: 0 Discharge Instructions Additional Instructions: Findings: Your EGD showed mild inflammation in the stomach, which may be related to ibuprofen/aspirin usage. This can be treated with antacids if you have nausea or upper abdominal pain. The esophagus looked normal. Routine biopsies were done. If normal, we will order a swallow study. The colon was normal. Follow up: Routine screening colonoscopy is not needed but can be considered for any new symptoms. Please call if you develop: fevers >101.5 Nausea or Vomiting Abdominal pain that is not transient DAY SURGERY UNIT POST EGD/COLONOSCOPY INSTRUCTIONS 1. Because there will be medication in your system for the next 24 hours, you may feel a little sleepy. Your coordination will be affected. Therefore: a. Do not drive or operate dangerous equipment for 24 hours. b. Do not drink alcohol beverages for 24 hours (not even beer). c. Plan to go home and rest for the day. 2. Generally there are no restrictions on your activity after a day or so has gone by, but you may feel a bit fatigued for a few days. 3 After you arrive home you may have a light meal and return to a normal diet as you can tolerate it without feeling sick to your stomach. 4. After surgery, you may feel pain or discomfort. This should be only transient, but if it persists please contact your doctor. 5. If there are any questions regarding the findings of your procedure, please feel free to contact your doctor. 6. If you are unable to contact your doctor with a problem, contact the hospital at [phone]. 7. Continue all your regular medications unless directed otherwise. I understand the above instructions and have no questions. Signature of Patient or Responsible Adult Escort Date/Time Name of Responsible Adult Escort Signature of Nurse Date/Time Stand Alone Forms: Norm Gandhi (LALA) Activity:: Activity as Tolerated Diet:: As Tolerated Discharge Orders Discharge Orders: Discharge Order (Routine); Ordered 05/11/20 Ordered By: Peace Francois DS: Diagnosis Discharge Diagnosis (1) Mild chronic gastritis: Status: Acute (2) Normal colonoscopy: Status: Acute
--- NOTE | 2020-05-11 10:07 | W.COLOREPORT ---
Date of service: 05/11/20 Time of Service: 11:30 Colonoscopy Report Date of procedure: 05/11/20 Pre-op diagnosis general: Dysphagia, history of colon polyps Post-op diagnosis procedure note: other (Gastritis, normal colon) Procedure: EGD with duodenal, gastric and esophageal biopsies Colonoscopy Surgeon: Peace Francois Anesthesia proc note operative: MAC Indications: This 79 year woman reports difficulty swallowing on a regular basis. She had a tubular adenoma on a prior colonoscopy but is uncertain of the year. Procedure Description: The patient was placed in the left lateral position and propofol titrated to sedation. The endoscope was advanced into the esophagus under direct visualization. The scope was passed through the stomach and into the duodenum. There was no duodenitis or ulceration noted. Biopsies were taken from the second portion of the duodenum to evaluate for celiac disease. The stomach itself showed mild gastritis in the antrum which may be related to NSAID use. Retroflexed view of the fundus and lesser curvature showed no abnormalities. Routine biopsies were taken from the gastric antrum. The GE junction was inspected and showed no significant stricture, inflammation, masses or Barretts. The scope was slowly withdrawn with no other esophageal lesions found. The esophagus was somewhat patulous. It did not have the appearance of eosinophilic esophagitis but biopsies were taken from the distal and proximal esophagus for evaluation. The diagnosis of amyloidosis had been considered for her in the past but no testing done. Digital rectal examination revealed no abnormalities. The scope was advanced to the cecum with some difficulty due to tortuosity. The ileocecal valve and appendiceal orifice were clearly identified. The prep was good. The scope was slowly withdrawn over the course of greater than 6 minutes with no abnormalities seen in the ascending, transverse, descending, sigmoid colon or rectum including on retroflexed view. The patient tolerated the procedure well and was stable to recovery. Further screening colonoscopy is not indicated but can be considered if symptoms arise. Will await esophageal biopsy results and consider swallow study if normal.
--- NOTE | 2020-05-11 10:31 | ESO_PTH ---
PATIENT: Hoda Peoples LOC: [facility] U#:[id number] AGE/SX: 79/F ROOM: RE05/11/[address]: Peace Francois MD : 1940 BED: DIS: 05/11/2020 SPEC #: [id number] RECD: 05/11/20 12:58 STATUS: MIGUEL REQ #: [id number] FRED: 05/11/20 10:[address]: Peace Francois DEPT: Surgical Specimen RECD BY: Annabella Zamarripa ENTERED: 05/11/20 12:59 SP TYPE: Eso TONE DR: Shawna Couch V Tissues: 1 - BIOPSY BOWEL 2 - STOMACH BIOPSY 3 - ESOPHAGUS BIOPSY 4 - ESOPHAGUS BIOPSY Procedures: GROSS AND MICRO LEVEL 4 Comments: [id number] ([id number] [facility] [place]
[2020-05-11 11:55] VITALS: BP 142/69; PULSE 80; RESP 18; TEMP 36.4; O2SAT 99
== END 2020-05-11 12:23 | disposition home or self-care (01) ==
PROVIDERS: PCP Family Medicine; Visit Provider Surgery
PROC: (CPT 43239; principal; 2020-05-11 10:00)
DX: Z12.11 Encounter for screening for malignant neoplasm of colon (principal); K29.70 Gastritis, unspecified, without bleeding; R13.10 Dysphagia, unspecified; Z86.010 Personal history of colon polyps
CPT/HCPCS: 43239; G0105; 88305; J2405

== ENCOUNTER 2020-06-08 15:55 | Observation (INO) | payer MEDICARE, SELFPAY ==
[2020-06-08] VITALS (33 sets, daily range): BP systolic 97–148; BP diastolic 35–79; PULSE 57–80; RESP 13–24; TEMP 36.8–37; O2SAT 93–100
--- NOTE | 2020-06-08 15:45 | RT.EKG_ITS ---
APPROVED REPORT Exam: Resting ECG Patient Location: E HR:68 bpm ECG Measurements Heart Rate 68 AXIS HI 154 P 40 QRSd 89 QRS -5 QT 420 T 31 QTc 447 Conclusion Sinus rhythm...normal P axis, V-rate 60- 99 No sig change compared to 12/2014
--- NOTE | 2020-06-08 16:15 | DI.CT_ITS ---
EXAM: CT CHEST PE CTA CLINICAL HISTORY: chest pain, shortness of breath. TECHNIQUE: Imaging Protocol: Axial CT angiography was performed with multi-slice acquisition and mu lti-planar and/or 3D reconstructions. CONTRAST MATERIAL: Intravenous: Omnipaque 350 Contrast volume:structured data in ml COMPARISON: CR CHEST 2 VIEWS PA,LAT from 12/27/2014 FINDINGS: CT angiography of the chest was performed with intravenous infusion of 100 cc of Omnipaque 350. Diaphragm is mildly elevated on the right. This appears to be a chronic finding. Lungs are predomin antly clear except for some apparent dependent atelectasis and/or scarring. Small calcified left upp er lobe pulmonary nodule noted. No significant noncalcified pulmonary nodules.. No pleural effusion . Tracheobronchial tree appears intact. No evidence of pulmonary embolic disease. Thoracic aorta is of normal diameter, no thoracic aortic an eurysm or dissection, major branch vessels appear intact. No mediastinal or hilar adenopathy. Images obtained through the upper abdomen show unremarkable appearance of the visualized portions of the liver, and spleen. IMPRESSION: Negative CT angiogram of the chest. No evidence of pulmonary embolic disease. RADIATION DOSE DELIVERED: 308.25mGy.cm Total DLP 308.25mGy.cm Total DLP DATA REPOSITORY: All CT scans at this facility are submitted to the National Radiology Data Registry (NRDR) Dose Index Registry (DIR) with the [employer] ([employer]). RADIATION OPTIMIZATION: All CT scans at this facility use at least one of these dose optimization te chniques: automated exposure control; mA and/or kV adjustment per patient size (includes targeted exa ms where dose is matched to clinical indication); or iterative reconstruction.
[2020-06-08 16:23] LABS: Abs Immature Grans 0.02 10^3/uL (0.0-0.06); Absolute Basophil Count 0.04 10^3/uL (0.0-0.2); Absolute Eosinophil Count 0.11 10^3/uL (0.0-0.7); Absolute Lymphocyte Count 2.01 10^3/uL (1.2-3.4); Absolute Monocyte Count 0.58 10^3/uL (0.1-0.8); Absolute Neutrophil Count 2.48 10^3/uL (1.2-6.7); Basophils % 0.8; Eosinophils % 2.1; HCT 42.2 % (36.0-46.0); HGB 14.4 g/dL (11.2-15.7); Immature Grans % 0.4; Lymphocytes % 38.4; MCH 30.7 pg (27.0-33.0); MCHC 34.1 % (32.0-36.0); MPV 9.5 fL (8.0-11.0); Monocytes % 11.1; Neutrophils % 47.2; Nucleated RBC 0 %; Platelet Count 169 10^3/uL (130-400); RBC 4.69 10^6/uL (3.93-5.22); RDW 12.4 % (11.7-14.6); RDW-SD 40.8 fL; WBC 5.24 10^3/uL (4.4-10.8)
[2020-06-08 16:36] LABS: ALT 30 U/L (14-59); AST 24 U/L (15-37); Albumin 3.7 g/dL (3.4-5.0); Alkaline Phosphatase 43 U/L (46-116); Anion Gap 7.4 mmol/L (3-11); BUN 21 mg/dL (7-18); Bilirubin, Total 0.4 mg/dL (0.2-1.0); CO2 28.6 mmol/L (21.0-32.0); CREATININE 1.02 mg/dL (0.55-1.02); Calcium 8.7 mg/dL (8.5-10.1); Chloride 102 mmol/L (98-107); Estimated GFR 52.28 (mL/min/1.73m2); Glucose 91 mg/dL (74-106); Potassium 3.9 mmol/L (3.5-5.1); Sodium 138 mmol/L (136-145); Total Protein 7.4 g/dL (6.4-8.2)
[2020-06-08 16:40] LABS: Troponin I < 0.05 ng/mL (<0.06)
[2020-06-08 17:01] LABS: NT-proBNP 214 pg/mL (<300)
[2020-06-08] MEDS: Normal Saline - Diluent 50 ML VIAL IV (17:39)
[2020-06-08] MEDS: Omnipaque 350 MG/ML 100 ML BTL IJ (17:39)
--- NOTE | 2020-06-08 18:01 | DI.VRAD_ITS ---
PROCEDURE INFORMATION: Exam: CT Angiography Chest With Contrast Exam date and time: 06/08/2020 4:24 PM Age: 80 years old Clinical indication: Other: Chest pain, SOB TECHNIQUE: Imaging protocol: Computed tomographic angiography of the chest with intravenous contrast. 3D rendering (Not supervised by radiologist): MIP and/or 3D reconstructed images were created by the technologist. Contrast material: OMNIPAQUE 350; Contrast volume: 100 ml; Contrast route: INTRAVENOUS (IV); COMPARISON: CT CHEST WITHOUT CONTRAST 07/16/2016 5:30 PM FINDINGS: Pulmonary arteries: Good opacification of the pulmonary arteries. No filling defects are identified to suggest the presence of a pulmonary embolism. Aorta: Unremarkable. No aortic aneurysm. No aortic dissection. Lungs: Calcified granuloma left upper lobe. Pleural space: Unremarkable. No pneumothorax. No pleural effusion. Heart: Unremarkable. No cardiomegaly. No pericardial effusion. Lymph nodes: Unremarkable. No enlarged lymph nodes. Diaphragm: Elevated right hemidiaphragm. Dependent atelectasis in both lower lungs. Strand of fibrosis in the lingula. Bones/joints: Old fractures of the right posterior 8th and 9th ribs. Stable benign compression fractures of T11 and T12 with loss of height of approximately 50% of T11 and 25% of T12. Soft tissues: Unremarkable. IMPRESSION: 1. No pulmonary embolism identified. 2. No infiltrate identified. 3. Incidental findings as described Dictated and Authenticated by: Marta Miller MD. Ordering:SANDY Delacruz MD
--- NOTE | 2020-06-08 18:45 | RT.EKG_ITS ---
APPROVED REPORT Exam: Resting ECG Patient Location: E HR:71 bpm ECG Measurements Heart Rate 71 AXIS SD 165 P 59 QRSd 96 QRS 5 QT 422 T 53 QTc 459 Conclusion Sinus rhythm...normal P axis, V-rate 60- 99 No stemi
[2020-06-08] MEDS: LORazepam 2 MG/ML VIAL 0.5 MG IVP (19:06)
[2020-06-08 19:30] LABS: Troponin I < 0.05 ng/mL (<0.06)
--- NOTE | 2020-06-08 19:43 | W.ED.GENAD ---
Discharge Plan Disposition Patient Disposition: [facility] INPATIENT Condition: Serious Discharge Details Clinical Impression: Chest pain, Abnormal ECG Primary Care Provider: Shawna Couch V ED Provider: Jayme Deal Home Meds and New Rx's Prescriptions: No Action calcium-magnesium Tablet 1 tab PO BID RF: 0 Gas-X 62.5 mg strip 1 strip PO DIRECTED PRNRF: 0 magnesium oxide 400 mg (241.3 mg magnesium) tablet 400 mg PO DAILY RF: 0 rivastigmine [Exelon] 4.6 mg/24 hr patch 24 hour 4.6 mg TD DAILY RF: 0 clobetasol 0.05 % cream 1 applic topical BID RF: 0 midodrine 5 mg tablet 5 mg PO BID RF: 0 ibuprofen 800 mg tablet 800 mg PO BID RF: 0 aspirin [Aspirin Low-Strength] 81 MG tablet,chewable 81 mg PO DAILY RF: 0 Centrum Silver 1 EACH tablet 1 tab PO DAILY RF: 0 lorazepam 1 MG tablet 1 mg PO DAILY PRNRF: 0 cholecalciferol (vitamin D3) [Vitamin D3] 1,000 UNIT capsule 1,000 unit PO DAILY RF: 0 vitamin Q74-kxsps acid 1 EACH tablet 1 ea PO DAILY RF: 0 cephalexin 500 mg capsule 500 mg PO . DIRECTED RF: 0 gabapentin 300 mg capsule 400 mg PO QHS RF: 0 ropinirole [Requip] 3 MG tablet 1 tab PO DAILY RF: 0 mirtazapine [Remeron] 15 MG tablet 1 tab PO DAILY RF: 0 alendronate [Fosamax] 70 MG tablet 1 tab PO QWEEK RF: 0 Fish Oil 1 EACH capsule 1 cap PO DAILY RF: 0 Medical Decision Making 80-year-old with history of anxiety depression, dementia, peripheral neuropathy, here with retrosternal chest discomfort described as pressure that is worse with exertion. She also notes elevated blood pressure. She is typically hypotensive and is prescribed Midodrin for this. Patient also has some associated shortness of breath and dyspnea on exertion. Patient does have lower extremity edema with no calf tenderness. Considered CHF. BNP within normal limits. Considered pulmonary embolism. CT of the chest was reviewed and interpreted by radiology: No PE, no dissection. Some incidental findings noted see report. Considered ACS. Screening ECG #1 was reviewed and interpreted by me: Please see report. There are some ST depressions inferior laterally which were also noted on a prior ECG from 12/27/2014. Patient was observed in the emergency department and a second ECG was obtained as well as delta troponin. Second ECG was reviewed and interpreted by me and reveals persistent ST depressions also concern for subtle ST elevation of less than 1 mm noted in leads V1 and V2. Delta troponin negative and unchanged. Patient does continue to have mild chest heaviness. I will give nitroglycerin sublingual as well as aspirin. Plan will be for hospitalization for serial cardiac enzymes rule out ACS. 8:10 --patient was given 1 sublingual nitroglycerin and her pressure did improve but BP decreased to 100 systolic. Will hold additional nitroglycerin at this time. Will give NS 250mL bolus. I did call and speak with Dr. Rizzo, discussed ED presentation and course, he will admit the patient. Bridging orders request to be placed to the floor. Imaging Data Radiologic Study: Imaging: CT Scan (chest) Radiologist's impression: FINDINGS: Pulmonary arteries: Good opacification of the pulmonary arteries. No filling defects are identified to suggest the presence of a pulmonary embolism. Aorta: Unremarkable. No aortic aneurysm. No aortic dissection. Lungs: Calcified granuloma left upper lobe. Pleural space: Unremarkable. No pneumothorax. No pleural effusion. Heart: Unremarkable. No cardiomegaly. No pericardial effusion. Lymph nodes: Unremarkable. No enlarged lymph nodes. Diaphragm: Elevated right hemidiaphragm. Dependent atelectasis in both lower lungs. Strand of fibrosis in the lingula. Bones/joints: Old fractures of the right posterior 8th and 9th ribs. Stable benign compression fractures of T11 and T12 with loss of height of approximately 50% of T11 and 25% of T12. Soft tissues: Unremarkable. IMPRESSION: 1. No pulmonary embolism identified. 2. No infiltrate identified. 3. Incidental findings as described Lab Data Lab results reviewed: Yes I reviewed the patient's lab results. Labs: Laboratory Tests Range/Units 06/08/20 06/08/20 06/08/20 16:05 16:05 16:06 WBC (4.4-10.8) 10^3/uL 5.24 RBC (3.93-5.22) 10^6/uL 4.69 Hgb (11.2-15.7) g/dL 14.4 Hct (36.0-46.0) % 42.2 MCV (80-95) fL 90.0 MCH (27.0-33.0) pg 30.7 MCHC (32.0-36.0) % 34.1 RDW (11.7-14.6) % 12.4 Plt Count (130-400) 10^3/uL 169 MPV (8.0-11.0) fL 9.5 Immature Gran % 0.4 Neutrophils % 47.2 Lymphocytes % 38.4 Monocytes % 11.1 Eosinophils % 2.1 Basophils % 0.8 Nucleated RBC % % 0 Absolute Neutrophils (1.2-6.7) 10^3/uL 2.48 Absolute Lymphocytes (1.2-3.4) 10^3/uL 2.01 Absolute Monocytes (0.1-0.8) 10^3/uL 0.58 Absolute Eosinophils (0.0-0.7) 10^3/uL 0.11 Absolute Basophils (0.0-0.2) 10^3/uL 0.04 Sodium (136-145) mmol/L 138 Potassium (3.5-5.1) mmol/L 3.9 Chloride (98-107) mmol/L 102 Carbon Dioxide (21.0-32.0) mmol/L 28.6 Anion Gap (3-11) mmol/L 7.4 BUN (7-18) mg/dL 21 H Creatinine (0.55-1.02) mg/dL 1.02 Estimated GFR/1.73 m2 (mL/min/1.73m2) 52.28 Glucose (74-106) mg/dL 91 Calcium (8.5-10.1) mg/dL 8.7 Total Bilirubin (0.2-1.0) mg/dL 0.4 AST (15-37) U/L 24 ALT (14-59) U/L 30 Alkaline Phosphatase (46-116) U/L 43 L Troponin I (<0.06) ng/mL < 0.05 NT-Pro-B Natriuret Pep (<300) pg/mL 214 Total Protein (6.4-8.2) g/dL 7.4 Albumin (3.4-5.0) g/dL 3.7 Range/Units 06/08/20 19:02 WBC (4.4-10.8) 10^3/uL RBC (3.93-5.22) 10^6/uL Hgb (11.2-15.7) g/dL Hct (36.0-46.0) % MCV (80-95) fL MCH (27.0-33.0) pg MCHC (32.0-36.0) % RDW (11.7-14.6) % Plt Count (130-400) 10^3/uL MPV (8.0-11.0) fL Immature Gran % Neutrophils % Lymphocytes % Monocytes % Eosinophils % Basophils % Nucleated RBC % % Absolute Neutrophils (1.2-6.7) 10^3/uL Absolute Lymphocytes (1.2-3.4) 10^3/uL Absolute Monocytes (0.1-0.8) 10^3/uL Absolute Eosinophils (0.0-0.7) 10^3/uL Absolute Basophils (0.0-0.2) 10^3/uL Sodium (136-145) mmol/L Potassium (3.5-5.1) mmol/L Chloride (98-107) mmol/L Carbon Dioxide (21.0-32.0) mmol/L Anion Gap (3-11) mmol/L BUN (7-18) mg/dL Creatinine (0.55-1.02) mg/dL Estimated GFR/1.73 m2 (mL/min/1.73m2) Glucose (74-106) mg/dL Calcium (8.5-10.1) mg/dL Total Bilirubin (0.2-1.0) mg/dL AST (15-37) U/L ALT (14-59) U/L Alkaline Phosphatase (46-116) U/L Troponin I (<0.06) ng/mL < 0.05 NT-Pro-B Natriuret Pep (<300) pg/mL Total Protein (6.4-8.2) g/dL Albumin (3.4-5.0) g/dL HPI General Mode of arrival: ambulatory. Date/Time Provider Initiated Documentation: 06/08/20 15:56. Limitations to Documentation: no limitations. Information obtained by: patient. HPI Narrative: 80-year-old with history of anxiety depression, dementia, peripheral neuropathy, here with retrosternal chest discomfort described as pressure that is worse with exertion. She also notes elevated blood pressure. She is typically hypotensive and is prescribed Midodrin for this. Patient also has some associated shortness of breath and dyspnea on exertion. Related Data Home Medications Medication Instructions Recorded Confirmed Centrum Silver 1 tab PO DAILY 12/12/14 06/08/20 aspirin [Aspirin Low-Strength] 81 mg PO DAILY 12/12/14 06/08/20 Fish Oil 1 cap PO DAILY 08/02/17 06/08/20 alendronate [Fosamax] 1 tab PO QWEEK 08/02/17 06/08/20 mirtazapine [Remeron] 1 tab PO DAILY 08/02/17 06/08/20 ropinirole [Requip] 1 tab PO DAILY 08/02/17 06/08/20 cholecalciferol (vitamin D3) 1,000 unit PO DAILY 08/20/17 06/08/20 [Vitamin D3] lorazepam 1 mg PO DAILY PRN 08/20/17 06/08/20 vitamin X77-kthse acid 1 ea PO DAILY 08/20/17 06/08/20 magnesium oxide 400 mg (241.3 mg 400 mg PO DAILY 07/18/19 06/08/20 magnesium) tablet rivastigmine 4.6 mg TD DAILY 07/18/19 06/08/20 simethicone 62.5 mg oral strips 1 strip PO DIRECTED PRN each 07/18/19 06/08/20 calcium-magnesium tablet 1 tab PO BID tab 07/20/19 06/08/20 clobetasol 0.05 % topical cream 1 applic TOPICAL BID 04/20/20 06/08/20 ibuprofen 800 mg tablet 800 mg PO BID tab 04/20/20 06/08/20 midodrine 5 mg tablet 5 mg PO BID tab 04/20/20 06/08/20 cephalexin 500 mg PO . DIRECTED 06/08/20 06/08/20 gabapentin 400 mg PO QHS 06/08/20 06/08/20 Allergies Allergy/AdvReac Type Severity Reaction Status Date / Time hydroxyzine Allergy Severe Verified 06/08/20 16:06 cetirizine [From Zyrtec] Allergy Mild Verified 06/08/20 16:06 donepezil HCl [From Aricept] Allergy Mild Nausea Unverified 06/08/20 16:06 rivastigmine [From Exelon] Allergy Mild Nausea Unverified 06/08/20 16:06 sertraline Allergy Unknown Unverified 06/08/20 16:06 General Stated Complaint: Chest Pain KAILASH: 2 Review of Systems All systems reviewed & are unremarkable except as noted in HPI and below Constitutional Constitutional: Denies fever(s) Cardiovascular Cardiovascular: Reports as per HPI, Reports chest pain and Reports dyspnea Respiratory Respiratory: Reports dyspnea Psychiatric Psychiatric: Reports anxiety PFSH Medical History Anxiety with depression Dementia Pt denies this Dyspnea on exertion Fatigue Insomnia Migraine Nail abnormality Obstructive sleep apnea Orthostatic hypotension Osteoporosis Peripheral neuropathy Raynauds syndrome Restless leg syndrome Tubular adenoma Surgical History H/O foot surgery r foot surgerly H/O knee surgery L knee surgery-patella History of colonoscopy Hx of tonsillectomy Family History Mother Dementia Social History Smoking/Tobacco Use Status: Never Smoking risk assessment performed?: Yes Alcohol Intake: never Drug use: Never Substance use type: does not use Household members: spouse Number of Children: 2 Education Level: high school 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 Exam Const General: cooperative and no acute distress HENMT Mouth: moist mucous membranes Eyes Conjunctivae: normal conjunctivae Sclera: normal sclerae Neck Neck: trachea midline and supple Resp Auscultation: clear to auscultation bilaterally, no rales, no rhonchi and no wheezes Cardio Rate: regular rate and not tachycardic Rhythm: regular rhythm GI Palpation: soft, not firm, no guarding, no masses, not rigid and nontender Skin General skin exam: no rashes or lesions noted Neuro General: patient alert, patient awake and tone normal Extrem General: no calf tenderness bilaterally and edema Laterality: bilateral (trace) Psych Appearance: grossly normal Mental Status: mental status grossly normal Mood: anxious mood Course Vital Signs Vital signs: Vital Signs Temperature 37.0 C 06/08/20 16:00 Pulse 78 06/08/20 16:00 Respiratory Rate 18 06/08/20 16:00 Blood Pressure 148/63 H 06/08/20 16:00 Pulse Oximetry 99 06/08/20 16:00 Temperature 37.0 C 06/08/20 16:00 Temperature Source Skin 06/08/20 16:00 Pulse 57 L 06/08/20 17:01 Pulse 57 L 06/08/20 17:10 Respiratory Rate 17 06/08/20 17:10 Respiratory Effort Non-Labored 06/08/20 16:04 Blood Pressure 110/53 L 06/08/20 17:01 Blood Pressure Mean 66 06/08/20 17:01 Blood Pressure Position Sitting 06/08/20 16:00 Pulse Oximetry 100 06/08/20 17:10 Oxygen Delivery Method Room Air 06/08/20 16:00 Oxygen Flow Rate 0 06/08/20 16:00 Pain Level 8 06/08/20 16:00 Lab/Test Results Lab/Test Results: Laboratory Tests Range/Units 06/08/20 06/08/20 06/08/20 16:05 16:05 16:06 WBC (4.4-10.8) 10^3/uL 5.24 RBC (3.93-5.22) 10^6/uL 4.69 Hgb (11.2-15.7) g/dL 14.4 Hct (36.0-46.0) % 42.2 MCV (80-95) fL 90.0 MCH (27.0-33.0) pg 30.7 MCHC (32.0-36.0) % 34.1 RDW (11.7-14.6) % 12.4 Plt Count (130-400) 10^3/uL 169 MPV (8.0-11.0) fL 9.5 Immature Gran % 0.4 Neutrophils % 47.2 Lymphocytes % 38.4 Monocytes % 11.1 Eosinophils % 2.1 Basophils % 0.8 Nucleated RBC % % 0 Absolute Neutrophils (1.2-6.7) 10^3/uL 2.48 Absolute Lymphocytes (1.2-3.4) 10^3/uL 2.01 Absolute Monocytes (0.1-0.8) 10^3/uL 0.58 Absolute Eosinophils (0.0-0.7) 10^3/uL 0.11 Absolute Basophils (0.0-0.2) 10^3/uL 0.04 Sodium (136-145) mmol/L 138 Potassium (3.5-5.1) mmol/L 3.9 Chloride (98-107) mmol/L 102 Carbon Dioxide (21.0-32.0) mmol/L 28.6 Anion Gap (3-11) mmol/L 7.4 BUN (7-18) mg/dL 21 H Creatinine (0.55-1.02) mg/dL 1.02 Estimated GFR/1.73 m2 (mL/min/1.73m2) 52.28 Glucose (74-106) mg/dL 91 Calcium (8.5-10.1) mg/dL 8.7 Total Bilirubin (0.2-1.0) mg/dL 0.4 AST (15-37) U/L 24 ALT (14-59) U/L 30 Alkaline Phosphatase (46-116) U/L 43 L Troponin I (<0.06) ng/mL < 0.05 NT-Pro-B Natriuret Pep (<300) pg/mL 214 Total Protein (6.4-8.2) g/dL 7.4 Albumin (3.4-5.0) g/dL 3.7 Range/Units 06/08/20 19:02 WBC (4.4-10.8) 10^3/uL RBC (3.93-5.22) 10^6/uL Hgb (11.2-15.7) g/dL Hct (36.0-46.0) % MCV (80-95) fL MCH (27.0-33.0) pg MCHC (32.0-36.0) % RDW (11.7-14.6) % Plt Count (130-400) 10^3/uL MPV (8.0-11.0) fL Immature Gran % Neutrophils % Lymphocytes % Monocytes % Eosinophils % Basophils % Nucleated RBC % % Absolute Neutrophils (1.2-6.7) 10^3/uL Absolute Lymphocytes (1.2-3.4) 10^3/uL Absolute Monocytes (0.1-0.8) 10^3/uL Absolute Eosinophils (0.0-0.7) 10^3/uL Absolute Basophils (0.0-0.2) 10^3/uL Sodium (136-145) mmol/L Potassium (3.5-5.1) mmol/L Chloride (98-107) mmol/L Carbon Dioxide (21.0-32.0) mmol/L Anion Gap (3-11) mmol/L BUN (7-18) mg/dL Creatinine (0.55-1.02) mg/dL Estimated GFR/1.73 m2 (mL/min/1.73m2) Glucose (74-106) mg/dL Calcium (8.5-10.1) mg/dL Total Bilirubin (0.2-1.0) mg/dL AST (15-37) U/L ALT (14-59) U/L Alkaline Phosphatase (46-116) U/L Troponin I (<0.06) ng/mL < 0.05 NT-Pro-B Natriuret Pep (<300) pg/mL Total Protein (6.4-8.2) g/dL Albumin (3.4-5.0) g/dL
[2020-06-08] MEDS: Aspirin 325 MG TAB PO (19:51)
[2020-06-08] MEDS: nitroGLYcerin 0.4 MG TAB SL (19:52)
[2020-06-08] MEDS: Normal Saline 250 ML 500 ML IV (20:28)
--- NOTE | 2020-06-08 23:26 | HPE_ITS ---
Date of service: 06/08/20 Time of Service: 23:26 Assessment and Plan Assessment and plan (1) Chest pain: Status: Acute Assessment and plan: The patient's chest tightness is not totally typical angina, but given her age there is certainly some concern for anginal equivalent. EKGs are concerning for some dynamic mild changes. Fortunately, the third troponin just returned which continues to be negative. CT chest was reassuring for no pulmonary embolus or dissection, pneumonia, or other physical cause for the chest pain. Given the overall picture, I do think that further cardiac testing would be prudent, but not sure we need to keep her inpatient to complete the assessment. We will leave her on aspirin until this work-up has been completed. Was consider esophageal and gastric causes for her chest discomfort, especially given her recent endoscopy. CT was not concerning for esophageal rupture. See below. (2) Mild chronic gastritis: Status: Acute Assessment and plan: Patient had some gastritis on her recent endoscopy, but does not appear to be on acid suppression per home list. She reports being on famotidine, which we can give her. Is also notable she is on alendronate whi ch may make the symptoms worse. (3) Idiopathic peripheral autonomic neuropathy: Status: Acute Assessment and plan: Blood pressure has been somewhat labile, but this is consistent with her history. We will continue midodrine for now. (4) Restless leg syndrome: Status: Acute Assessment and plan: Continue outpatient rivastigmine, ropinirole, and gabapentin (5) Urticaria, chronic: Status: Acute Assessment and plan: Patient states this is controlled with loratadine, montelukast, and famotidine. I have ordered these. (6) DVT prophylaxis: Status: Acute Assessment and plan: Low molecular weight heparin. (7) Discharge planning issues: Status: Acute Assessment and plan: Currently stable on medical floor with telemetry monitoring given chest pain. She has her home CPAP to treat obstructive sleep apnea. She is full code. History of Present Illness History of Present Illness Chief Complaint: Chest tightness Narrative: 80-ye ar-old with history of autonomic neuropathy presenting with 2-day history of chest tightness and dyspnea on exertion associated with general fatigue and malaise. Patient started to feel some chest tightness yesterday while playing a game on the computer. She denies any emotional distress triggering the symptoms. Feeling was somewhat vague and diffuse in the mid chest, and was associated with feeling short of breath when doing normal activities around the house. There is no radiation. She did feel associated palpitations intermittently. The discomfort was not associated with nausea or vomiting, lightheadedness or dizziness, or diaphoresis. It seemed to get better when she distracted herself. She was able to go to sleep, but when she woke this morning the discomfort was still there. She became more concerned throughout the day and decided come in the emergency room. She has not had the same discomfort in the past. Review of Systems All systems reviewed & are unremarkable except as noted in HPI and below Constitutional Constitutional: Denies chills, Denies fever(s), Denies headache(s) and Denies weakness ENT Ears, Nose, Mouth, and Throat: Denies dizziness, Denies headache(s), Denies mouth lesions, Denies nasal discharge and Denies sore throat Cardiovascular Cardiovascular: Denies syncope Respiratory Respiratory: Denies chest congestion, Denies cough and Denies wheezing Comments: She has been using her CPAP Neurologic Neurologic: Denies vertigo, Denies dizziness, Denies syncope, Denies headache(s), Denies sensory deficit and Denies weakness Psychiatric Psychiatric: Denies mood swings Hematologic/Lymphatic Hematologic/Lymphatic: Denies easy bleeding Allergic/Immunologic Allergic/Immunologic: Denies wheezing PFSH Medical History Anxiety with depression Dementia Pt denies this Dyspnea on exertion Fatigue Insomnia Migraine Nail abnormality Obstructive sleep apnea Orthostatic hypotension Osteoporosis Peripheral neuropathy Raynauds syndrome Restless leg syndrome Tubular adenoma Surgical History H/O foot surgery r foot surgerly H/O knee surgery L knee surgery-patella History of colonoscopy Hx of tonsillectomy Family History Mother Dementia Social History Smoking/Tobacco Use Status: Never Smoking risk assessment performed?: Yes Alcohol Intake: never Drug use: Never Substance use type: does not use Household members: spouse Number of Children: 2 Education Level: high school 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 Meds Home Medications and Allergies Home Medications Medication Instructions Recorded Confirmed Type Centrum Silver 1 tab PO DAILY 12/12/14 06/08/20 History aspirin [Aspirin Low-Strength] 81 mg PO DAILY 12/12/14 06/08/20 History Fish Oil 1 cap PO DAILY 08/02/17 06/08/20 History alendronate [Fosamax] 1 tab PO QWEEK 08/02/17 06/08/20 History mirtazapine [Remeron] 1 tab PO DAILY 08/02/17 06/08/20 History ropinirole [Requip] 1 tab PO DAILY 08/02/17 06/08/20 History cholecalciferol (vitamin D3) 1,000 unit PO DAILY 08/20/17 06/08/20 History [Vitamin D3] lorazepam 1 mg PO DAILY PRN 08/20/17 06/08/20 History vitamin J59-aocst acid 1 ea PO DAILY 08/20/17 06/08/20 History magnesium oxide 400 mg (241.3 mg 400 mg PO DAILY 07/18/19 06/08/20 History magnesium) tablet rivastigmine 4.6 mg TD DAILY 07/18/19 06/08/20 History simethicone 62.5 mg oral strips 1 strip PO DIRECTED PRN each 07/18/19 06/08/20 History calcium-magnesium tablet 1 tab PO BID tab 07/20/19 06/08/20 History clobetasol 0.05 % topical cream 1 applic TOPICAL BID 04/20/20 06/08/20 History ibuprofen 800 mg tablet 800 mg PO BID tab 04/20/20 06/08/20 History midodrine 5 mg tablet 5 mg PO BID tab 04/20/20 06/08/20 History cephalexin 500 mg PO . DIRECTED 06/08/20 06/08/20 History gabapentin 400 mg PO QHS 06/08/20 06/08/20 History Allergies Allergy/AdvReac Type Severity Reaction Status Date / Time hydroxyzine Allergy Severe Verified 06/08/20 16:06 cetirizine [From Zyrtec] Allergy Mild Verified 06/08/20 16:06 donepezil HCl [From Aricept] Allergy Mild Nausea Unverified 06/08/20 16:06 rivastigmine [From Exelon] Allergy Mild Nausea Unverified 06/08/20 16:06 sertraline Allergy Unknown Unverified 06/08/20 16:06 Exam Narrative Exam Narrative: GEN: Alert and oriented, pleasent and cooperative though somewhat upset about not having food or her nighttime medications. She gives a linear history. No acute distress at rest. Frequently moving her legs in bed HEENT: Head atraumatic. Conjunctiva clear, no icterus. PEERL, EOMI. no rhino rrhea. MMM, OP benign. Neck is supple with no masses or lymphadenopathy, trachea midline. Normal thyroid. LUNGS: CTAB with normal effort CV: RRR with no murmurs, gallops, or rubs. ABD: +BS, soft, NT/ND EXT: no cyanosis, clubbing. Leg somewhat puffy in ankles, but no pitting edema MSK: No joint redness or swelling NEURO: CN 2-12 grossly intact. Normal movement of 4 extremities. Normal speech and coordination SKIN: No rashs or open wounds. PSYCH: normal mood and affect Results CT Chest: 1. No pulmonary embolism identified. 2. No infiltrate identified. Incidental findings include calcified granuloma left upper lobe. Elevated right hemidiaphragm. Dependent atelectasis in both lower lungs with strands of fibrosis in the lingula. Old fractures of right posterior eighth and ninth ribs, stable benign compression fractures of T11 and T12. Labs Result diagrams: 06/08/20 16:05 06/08/20 16:05 Labs: Laboratory Results - last 24 hr 06/08/20 06/08/20 06/08/20 16:05 16:05 16:06 WBC 5.24 RBC 4.69 Hgb 14.4 Hct 42.2 MCV 90.0 MCH 30.7 MCHC 34.1 RDW 12.4 Plt Count 169 MPV 9.5 Immature Gran % 0.4 Neutrophils % 47.2 Lymphocytes % 38.4 Monocytes % 11.1 Eosinophils % 2.1 Basophils % 0.8 Nucleated RBC % 0 Absolute Neutrophils 2.48 Absolute Lymphocytes 2.01 Absolute Monocytes 0.58 Absolute Eosinophils 0.11 Absolute Basophils 0.04 Sodium 138 Potassium 3.9 Chloride 102 Carbon Dioxide 28.6 Anion Gap 7.4 BUN 21 H Creatinine 1.02 Estimated GFR/1.73 m2 52.28 Glucose 91 Calcium 8.7 Total Bilirubin 0.4 AST 24 ALT 30 Alkaline Phosphatase 43 L Troponin I < 0.05 NT-Pro-B Natriuret Pep 214 Total Protein 7.4 Albumin 3.7 06/08/20 19:02 WBC RBC Hgb Hct MCV MCH MCHC RDW Plt Count MPV Immature Gran % Neutrophils % Lymphocytes % Monocytes % Eosinophils % Basophils % Nucleated RBC % Absolute Neutrophils Absolute Lymphocytes Absolute Monocytes Absolute Eosinophils Absolute Basophils Sodium Potassium Chloride Carbon Dioxide Anion Gap BUN Creatinine Estimated GFR/1.73 m2 Glucose Calcium Total Bilirubin AST ALT Alkaline Phosphatase Troponin I < 0.05 NT-Pro-B Natriuret Pep Total Protein Albumin Last Vital Signs Temp 36.8 C 06/08/20 21:30 Pulse 67 06/08/20 22:12 Resp 20 06/08/20 21:30 BP 133/79 06/08/20 21:30 Pulse Ox 96 06/08/20 21:30 COVID-19 Screening Have you, or household traveled for leisure in last 14 days?: No Had IN PERSON contact w/suspected or confirmed C-19 person: No
[2020-06-09 00:09] LABS: Troponin I < 0.05 ng/mL (<0.06)
[2020-06-09] MEDS: rOPINIRole 1 MG TAB 3 MG PO (00:43)
[2020-06-09] MEDS: LORazepam 1 MG TAB PO (00:43)
[2020-06-09] MEDS: Gabapentin 400 MG CAP PO (00:43)
[2020-06-09 03:43] VITALS: BP 100/60; PULSE 54; RESP 17; TEMP 36.3; O2SAT 98
--- NOTE | 2020-06-09 06:14 | NUR.NOTE ---
Nursing Note: 23:40 Pt came to the unit with Rivastigmine patch 4.6mg/24hrs on her right upper chest. Pt reported that she place this medication every alternative days. But this medication is noted on her allergy list. Charge Nurse notified. aware off that.
[2020-06-09 07:27] VITALS: BP 94/50; PULSE 60; RESP 16; TEMP 36.7; O2SAT 93
[2020-06-09 07:30] VITALS: PULSE 58
[2020-06-09] MEDS: Multivitamin TAB 1 TAB PO (08:37)
[2020-06-09] MEDS: Omega-3 Fatty Acids 1000 MG CAP PO (08:37)
[2020-06-09] MEDS: Famotidine 20 MG TAB 40 MG PO (08:38)
[2020-06-09] MEDS: Aspirin 81 MG CHEW PO (08:38)
[2020-06-09] MEDS: Loratidine 10 MG TAB PO (08:38)
[2020-06-09] MEDS: Magnesium Oxide 400 MG TAB PO (08:38)
[2020-06-09] MEDS: Mirtazapine 15 MG TAB PO (08:39)
[2020-06-09] MEDS: Montelukast 10 MG TAB PO (08:39)
[2020-06-09] MEDS: Midodrine 2.5 MG TAB 5 MG PO (08:40)
[2020-06-09] MEDS: Enoxaparin 40 MG/0.4 ML SYR SC (08:40)
--- NOTE | 2020-06-09 10:25 | DSE_ITS ---
Date of service: 06/09/20 Time of Service: 10:25 DS: Diagnosis Discharge Diagnosis (1) Chest pain: Start date: 06/09/20 Start time: 10:25 Status: Resolved Asessment and Plan: Negative troponins, CT negative. CP improved, however there does a GI component with history of gastritis not on acid suppression. Her work out could be finished as an outpatient She has follow up with PCP Will start her carafate in addition to famotidine Will order echo as an outpatient and stress test (2) Mild chronic gastritis: Start date: 06/09/20 Start time: 10:30 Status: Chronic Asessment and Plan: Revealed on recent endoscopy as above, (3) Idiopathic peripheral autonomic neuropathy: Start date: 06/09/20 Start time: 10:31 Status: Acute Asessment and Plan: Blood pressure has been somewhat labile, but this is consistent with her history. We will continue midodrine for now. (4) Restless leg syndrome: Start date: 06/09/20 Start time: 10:32 Status: Acute Asessment and Plan: Continue outpatient rivastigmine, ropinirole, and gabapentin (5) Urticaria, chronic: Start date: 06/09/20 Start time: 10:32 Status: Chronic Asessment and Plan: Patient states this is controlled with loratadine, montelukast, and famotidine above case discussed with Dr. Phillips who is in agreement. Discharge Plan Disposition Patient Disposition: HOME Condition: Stable Discharge Details Reason For Visit: CHEST PAIN Admit Date/Time: 06/08/20 20:16 Admit Provider: Darren Butcher Attending Provider: Darren Butcher Primary Care Provider: Shawna Couch V Hospital Course Hospital Course: 80-year-old with history of autonomic neuropathy presenting with 2-day history of chest tightness and dyspnea on exertion associated with general fatigue and malaise. Patient started to feel some chest tightness while playing a game on the computer. She denies any emotional distress triggering the symptoms. Feeling was somewhat vague and diffuse in the mid chest, and was associated with feeling short of breath when doing normal activities around the house. There is no radiation. She did feel associated palpitations intermittently. The discomfort was not associated with nausea or vomiting, lightheadedness or dizziness, or diaphoresis. It seemed to get better when she distracted herself. She was able to go to sleep, but when she woke this morning the discomfort was still there. She became more concerned throughout the day and decided come in the emergency room. She has not had the same discomfort in the past. Troponins flat negative. Chest tightness has dissipated. There is likely a GI component in setting of recent EGD revealing gastritis. She is on an alendronate but not acid suppression, she was initiated on Famotidine here will add carafate and PPI as well. On telemetry she has been NSR, she has a follow up appt with her PCP this week, therefore outpatient echo with stress would appropriate. Will discharge home. Home Meds and New Rx's Prescriptions: New famotidine 20 mg Tablet 40 mg PO BID Qty: 60 RF: 0 omeprazole 20 mg capsule,delayed release(DR/EC) 20 mg PO DAILY Qty: 30 RF: 0 sucralfate [Carafate] 1 gram tablet 1 g PO QACHS Qty: 120 RF: 0 Continued calcium-magnesium Tablet 1 tab PO BID RF: 0 Gas-X 62.5 mg strip 1 strip PO DIRECTED PRNRF: 0 magnesium oxide 400 mg (241.3 mg magnesium) tablet 400 mg PO DAILY RF: 0 rivastigmine [Exelon] 4.6 mg/24 hr patch 24 hour 4.6 mg TD DAILY RF: 0 clobetasol 0.05 % cream 1 applic topical BID RF: 0 midodrine 5 mg tablet 5 mg PO BID RF: 0 ibuprofen 800 mg tablet 800 mg PO BID RF: 0 aspirin [Aspirin Low-Strength] 81 MG tablet,chewable 81 mg PO DAILY RF: 0 Centrum Silver 1 EACH tablet 1 tab PO DAILY RF: 0 lorazepam 1 MG tablet 1 mg PO DAILY PRNRF: 0 cholecalciferol (vitamin D3) [Vitamin D3] 1,000 UNIT capsule 1,000 unit PO DAILY RF: 0 gabapentin 300 mg capsule 400 mg PO QHS RF: 0 ropinirole [Requip] 3 MG tablet 1 tab PO DAILY RF: 0 mirtazapine [Remeron] 15 MG tablet 1 tab PO DAILY RF: 0 alendronate [Fosamax] 70 MG tablet 1 tab PO QWEEK RF: 0 Fish Oil 1 EACH capsule 1 cap PO DAILY RF: 0 Discontinued cephalexin 500 mg capsule 500 mg PO . DIRECTED RF: 0 No Action vitamin [id number]-[id number] acid 1 EACH tablet 1 ea PO DAILY RF: 0 Discharge Instructions Instructions: Chest Pain (DC) Additional Instructions: Follow up with pcp as scheduled this week Outpatient echo and stress test, we will call to schedule with you You have been placed on omperazole, famotidine and carafate to help with gastritis found on previous EGD scope Stand Alone Forms: Nursing Discharge Form Activity:: Activity as Tolerated Equipment/Supplies:: No Equipment Needed Diet:: As Tolerated Discharge Orders Discharge Orders: Discharge Order (Routine); Ordered 06/09/20 Ordered By: Janet Trotter Other Ambulatory Orders: Nuclear Medicine Stress Test (Outpt) (ONCE) Location: None Selected Ordered By: Janet Trotter US echocardiogram stress (Routine) Location: None Selected Ordered By: Janet Trotter DS: Summary Status at Discharge Functional status at discharge: independent ambulation Overall status at discharge: patient is back to baseline Mental Status: mental status grossly normal Speech and Movement: speech and movement normal Mood: congruent mood Affect: normal affect Exam Narrative Exam Narrative: GEN: Alert and oriented, pleasent and cooperative though somewhat upset about not having food or her nighttime medications. She gives a linear history. No acute distress at rest. Frequently moving her legs in bed HEENT: Head atraumatic. Conjunctiva clear, no icterus. PEERL, EOMI. no rhinorrhea. MMM, OP benign. Neck is supple with no masses or lymphadenopathy, trachea midline. Normal thyroid. LUNGS: CTAB with normal effort CV: RRR with no murmurs, gallops, or rubs. ABD: +BS, soft, NT/ND EXT: no cyanosis, clubbing. Leg somewhat puffy in ankles, but no pitting edema MSK: No joint redness or swelling NEURO: CN 2-12 grossly intact. Normal movement of 4 extremities. Normal speech and coordination SKIN: No rashs or open wounds. PSYCH: normal mood and affect Psych Mental Status: mental status grossly normal Speech and Movement: speech and movement normal Mood: congruent mood Affect: normal affect DS: Data Vitals/I&O Vitals and I&O: Vital Signs Temperature 36.7 C 06/09/20 07:27 Temperature Source Tympanic 06/09/20 07:27 Pulse 60 06/09/20 07:27 Pulse Rhythm Regular 06/09/20 09:24 Pulse 70 06/08/20 20:40 Respiratory Rate 16 06/09/20 07:27 Respiratory Effort Non-Labored 06/09/20 09:24 Respiratory Depth Normal 06/09/20 09:24 Respiratory Pattern Normal 06/09/20 09:24 Blood Pressure 94/50 L 06/09/20 07:27 Blood Pressure Mean 64 06/08/20 20:36 Blood Pressure Position Sitting 06/08/20 16:00 Pulse Oximetry 93 06/09/20 07:27 Oxygen Delivery Method Room Air 06/09/20 07:27 Oxygen Flow Rate 0 06/09/20 07:27 Pain Level 0 06/09/20 03:43 Intake & Output 06/08/20 06/08/20 06/09/20 11:59 23:59 11:59 Intake Total 250 / 250 700 / 700 Output Total 450 / 450 650 / 650 Balance -200 / -200 50 / 50 Weight 72.5 kg 71.5 kg Intake: IV 250 / 250 Oral 700 / 700 Output: Urine 450 / 450 650 / 650 Other: Urine Color Straw Yellow Urine Appearance Clear Clear Urine Odor Normal Comment water. Stool Size Small Stool Characteristics Soft Formed Voiding Methods Toilet Bedside Commode Data Completed and Pending Completed studies during hospitalization [Text1]: Exam(s) PROCEDURE INFORMATION: Exam: CT Angiography Chest With Contrast Exam date and time: 06/08/2020 4:24 PM Age: 80 years old Clinical indication: Other: Chest pain, SOB TECHNIQUE: Imaging protocol: Computed tomographic angiography of the chest with intravenous contrast. 3D rendering (Not supervised by radiologist): MIP and/or 3D reconstructed images were created by the technologist. Contrast material: OMNIPAQUE 350; Contrast volume: 100 ml; Contrast route: INTRAVENOUS (IV); COMPARISON: CT CHEST WITHOUT CONTRAST 07/16/2016 5:30 PM FINDINGS: Pulmonary arteries: Good opacification of the pulmonary arteries. No filling defects are identified to suggest the presence of a pulmonary embolism. Aorta: Unremarkable. No aortic aneurysm. No aortic dissection. Lungs: Calcified granuloma left upper lobe. Pleural space: Unremarkable. No pneumothorax. No pleural effusion. Heart: Unremarkable. No cardiomegaly. No pericardial effusion. Lymph nodes: Unremarkable. No enlarged lymph nodes. Diaphragm: Elevated right hemidiaphragm. Dependent atelectasis in both lower lungs. Strand of fibrosis in the lingula. Bones/joints: Old fractures of the right posterior 8th and 9th ribs. Stable benign compression fractures of T11 and T12 with loss of height of approximately 50% of T11 and 25% of T12. Soft tissues: Unremarkable. IMPRESSION: 1. No pulmonary embolism identified. 2. No infiltrate identified. 3. Incidental findings as described Labs on day of discharge: Labs from last 24 hours 06/08/20 06/08/20 06/08/20 23:40 21:10 19:02 WBC RBC Hgb Hct MCV MCH MCHC RDW Plt Count MPV Immature Gran % Neutrophils % Lymphocytes % Monocytes % Eosinophils % Basophils % Nucleated RBC % Absolute Neutrophils Absolute Lymphocytes Absolute Monocytes Absolute Eosinophils Absolute Basophils Sodium Potassium Chloride Carbon Dioxide Anion Gap BUN Creatinine Estimated GFR/1.73 m2 Glucose Calcium Total Bilirubin AST ALT Alkaline Phosphatase Troponin I < 0.05 < 0.05 NT-Pro-B Natriuret Pep Total Protein Albumin COVID-19 PCR Pending Nasopharyn COVID-19 PCR Pending Ref Test Perform Site Pending 06/08/20 06/08/20 06/08/20 16:06 16:05 16:05 WBC 5.24 RBC 4.69 Hgb 14.4 Hct 42.2 MCV 90.0 MCH 30.7 MCHC 34.1 RDW 12.4 Plt Count 169 MPV 9.5 Immature Gran % 0.4 Neutrophils % 47.2 Lymphocytes % 38.4 Monocytes % 11.1 Eosinophils % 2.1 Basophils % 0.8 Nucleated RBC % 0 Absolute Neutrophils 2.48 Absolute Lymphocytes 2.01 Absolute Monocytes 0.58 Absolute Eosinophils 0.11 Absolute Basophils 0.04 Sodium 138 Potassium 3.9 Chloride 102 Carbon Dioxide 28.6 Anion Gap 7.4 BUN 21 H Creatinine 1.02 Estimated GFR/1.73 m2 52.28 Glucose 91 Calcium 8.7 Total Bilirubin 0.4 AST 24 ALT 30 Alkaline Phosphatase 43 L Troponin I < 0.05 NT-Pro-B Natriuret Pep 214 Total Protein 7.4 Albumin 3.7 COVID-19 PCR Nasopharyn COVID-19 PCR Ref Test Perform Site [facility] Medical History Anxiety with depression Dementia Pt denies this Dyspnea on exertion Fatigue Insomnia Migraine Nail abnormality Obstructive sleep apnea Orthostatic hypotension Osteoporosis Peripheral neuropathy Raynauds syndrome Restless leg syndrome Tubular adenoma Urticaria, chronic Surgical History H/O foot surgery r foot surgerly H/O knee surgery L knee surgery-patella History of colonoscopy Hx of tonsillectomy Family History Mother Dementia Social History Smoking/Tobacco Use Status: Never Smoking risk assessment performed?: Yes Alcohol Intake: never Drug use: Never Substance use type: does not use Household members: spouse Number of Children: 2 Education Level: high school 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
[2020-06-09 11:15] VITALS: BP 122/73; PULSE 59; RESP 14; TEMP 36.4; O2SAT 97
[2020-06-09 11:53] VITALS: PULSE 66
[2020-06-09 12:11] VITALS: BP 158/81; PULSE 65; RESP 16; TEMP 36.8; O2SAT 98
[2020-06-09 13:16] LABS: COVID-19 RT-PCR UVMMC Result Negative (Negative)
--- NOTE | 2020-06-09 13:37 | NUR.NOTE ---
Nursing Note: Pt very drowsy all morning, having a hard time staying awake, states all she wants to do is sleep. this scribe reported drowsiness to Nohemi Trotter NP. At lunch time Pt reports trouble breathing, VSS, coached patient through breathing exercises, helped, reports resolution of feeling of SOB, reports maybe it could be anxiety. notified CC erik that this scribe was concerned of pt's LOC and that Patient reports not feeling right. Asked Erik to notify provider again of nursing concerns. Pt has discharge orders.
== END 2020-06-09 12:54 | disposition home or self-care (01) ==
LOC: ER 20:04 → MS 21:41
PROVIDERS: Admitting Provider Family Medicine; Emergency Provider Student in an Organized Health Care Education/Training Program; PCP Family Medicine; Visit Provider Family Medicine
DX: R07.89 Other chest pain (principal); R06.02 Shortness of breath; R60.0 Localized edema; R94.31 Abnormal electrocardiogram [ECG] [EKG]; F41.9 Anxiety disorder, unspecified; F32.9 Major depressive disorder, single episode, unspecified; F03.90 Unspecified dementia, unspecified severity, without behavioral disturbance, psychotic disturbance, mood disturbance, and anxiety; G62.9 Polyneuropathy, unspecified; G47.00 Insomnia, unspecified; G47.33 Obstructive sleep apnea (adult) (pediatric); M81.0 Age-related osteoporosis without current pathological fracture; G25.81 Restless legs syndrome; I73.00 Raynaud's syndrome without gangrene; I95.1 Orthostatic hypotension; K29.50 Unspecified chronic gastritis without bleeding; L50.8 Other urticaria
CPT/HCPCS: 36415; 71275; 80053; 93005; 96361; 96374; 99217; 99219; 99285; J1650; U0003; 83880; 84484; 85025; 93010; G0378; J2060; J3490

== ENCOUNTER 2020-06-14 00:24 | Outpatient (CLI) | payer MEDICARE, SELFPAY ==
--- NOTE | 2020-06-14 08:45 | DI.NM_ITS ---
APPROVED REPORT Exam: Pharmacologic Patient Location: Outpatient Room/Bed: Stress Nurse: Bree Kaplan RN BMI: 23.96 Baseline Rhythm: Sinus Rhythm Indications: Patient presented to the ER with c/o intermittent 5/10 sternal chest pressure and SOB oc curing at rest and with activity. Patient states this discomfort resolves with rest and deep breathin g. Medical History Medical History: Anxiety, depression, peripheral neuropathy, dementia, osteoporosis, ostructive sleep apnea (w/ CPAP use), orthostatic hypotension, raynauds syndrome. Cardiac Medications: Aspirin, Magnesium oxide, Gabapentine, Midodrine. Allergies: Hydroxyzine, ceterzine, donepezil, rivastigmine, sertraline. Cardiac Risk Factors: None. Previous Cardiac Procedures: None. Pretest Chest Pain Characteristics: None. Exercise History: Indeterminate Physical Disabilities: None. Lung Sounds: Clear to auscultation Heart Sounds: Regular Stress Test Details Test: Exercise stress converted to pharmacologic stress due to failure to obtain a diagnostic stress test. Reason for pharmacologic stress test: physical limitation. Nuclear Acquisition: Rest Tc-99m/Stress Tc-99m 1 day Rest Isotope: Tc-99m Sestamibi. Dose: 11.5 Date: 06/14/2020 Injection Time: 0845 Stress Isotope: Tc-99m Sestamibi. Dose: 37.5 Date: 06/14/2020 Injection Time: 1123 HR Resting HR Supine: 63 bpm Max Heart Rate (APMHR): 141.646885 bpm Resting HR Standin bpm Target HR (85% APMHR): 119.497177 bpm Max HR Achieved: 96 bpm % of APMHR: 68.09 Recovery HR: 81 bpm HR response to stress: Normal HR response to stress BP Resting BP Supine: 130/80 mmHg Resting BP Standin/82 mmHg Max BP: 132/80 mmHg Recovery BP: 132/80 mmHg BP response to stress: Normal blood pressure response to stress. ECG Resting ECG: Sinus Rhythm Ectopy: None. Stress ECG: Sinus Rhythm ST Change: No significant ST changes noted., Arrhythmia: None. Recovery ECG: Sinus Rhythm Recovery ST Change: No significant ST segment changes noted. Recovery Arrhythmia: None. Clinical Reason for Termination: Dyspnea Stress Symptoms: Dyspnea Exercise duration: 2 min57 sec Highest Stage Reached: Stage 1: 1.7 mph at 10% grade. Exercise capacity: 4.64 METs Functional Capacity: 63 Stress ECG Conclusion 1. Resting electrocardiogram showed minor diffuse nondiagnostic ST-T abnormalities 2. Patient initially exercised on the Alexander protocol and demonstrated reduced exercise capacity of 4. 64 METS, limited by shortness of breath. 3. Blunted heart rate response to exercise. Normal blood pressure response to exercise. The patient achieved 68% of predicted heart rate for age 4. Electrocardiographically the test was nondiagnostic due to inadequate heart rate achieved Stress Test Summary STAGE Time (mins) Speed (mph) Grade (%) HR BP SYMPTOMS METS Supine 63 130/80 Standing 66 126/82 1 3 1.7 10 96 SOB. 4.6 1 min post Lexiscan injection 88 1236/82 SOB, lightheaded 3 min post Lexiscan injection 87 130/78 symptoms resolved. 6 min post Lexiscan injection 81 132/80 MPI Conclusion Normal myocardial perfusion without evidence of ischemia or prior infarction Calculated EF 71% Radiologist Interpretation Radiologist agrees with Record Press Operator's Interpretation. Radiologist Interpretation by: Sandra German MD Interpretation Date/Time: 06/15/2020 12:21:24
[2020-06-14] MEDS: Regadenoson 0.4 MG/5 ML SYR IVP (11:29)
== END 2020-06-14 00:44 ==
PROVIDERS: PCP Family Medicine; Visit Provider Nurse Practitioner Family
DX: R07.9 Chest pain, unspecified (principal); R06.02 Shortness of breath
CPT/HCPCS: 78452; 93017; J2785

== ENCOUNTER 2020-06-15 03:47 | Outpatient (CLI) | payer MEDICARE, SELFPAY ==
--- NOTE | 2020-06-15 10:30 | DI.US_ITS ---
APPROVED REPORT EXAM: Comprehensive 2D, Doppler, and color-flow Echocardiogram Patient Location: Out-Patient Television Service Engineer: Rupal Manuel RDCS (AE) Indications: Chest tightness Other Information Study Quality: Adequate Conclusion Normal left ventricular wall thickness and chamber size. Estimated ejection fraction is 55 to 60%. There are no segmental wall motion abnormalities Normal right ventricular size and systolic function Both atria are normal in size There are no structural valvular abnormalities Trace mitral regurgitation Trace to mild tricuspid regurgitation with normal estimated right ventricular systolic pressure 28 mm Hg Wall motion Left Ventricle The left ventricle is normal size. The left ventricular systolic function is normal. The left ventric ular ejection fraction is within the normal range. There is normal left ventricular wall thickness. T here is normal LV segmental wall motion. There is no ventricular septal defect visualized. LVEF is 55 -60%. Right Ventricle The right ventricle is normal size. The right ventricular systolic function is normal. The RVSP is 27 .9 mmHg. Atria The left atrium size is normal. The right atrium size is normal. The interatrial septum is intact wit h no evidence for an atrial septal defect. Aortic Valve The aortic valve is normal in structure. Aortic valve is trileaflet. There is no aortic valvular sten osis. No aortic regurgitation is present. Mitral Valve The mitral valve is normal in structure. No evidence of mitral valve stenosis. Trace to mild mitral r egurgitation. Tricuspid Valve The tricuspid valve is normal in structure. There is no tricuspid valve stenosis. Trace to mild tricu spid regurgitation. Pulmonic Valve The pulmonary valve is normal in structure. There is no pulmonic valvular stenosis. There is no pulmo rip valvular regurgitation. Great Vessels The aortic root is normal in size. The ascending aorta is normal in size. IVC is normal in size and c ollapses >50% with inspiration. Pericardium There is no pericardial effusion. 2D Dimensions IVSD d PLAX 0.71 cm F: 0.6-1.0 LV Vol A2C d MOD 62.9 mL LVPW d PLAX 0.70 cm F: 0.6 - 1.0 LV Vol A4C d MOD 66.7 mL LVID d PLAX 4.76 cm F: 3.8 - 5.2 LA vol/ BSA A2C s A-L 22.2 mL/m2 LVDs 3.35 cm F: 2.2 - 3.5 LA vol/ BSA A4C s A-L 35.1 mL/m2 Ao Root d 2.62 cm F: 2.7 - 3.3 LA Vol/ BSA Biplane s A-L 29.5 mL/m2 RA Area A4C 12.82 cm2 LA Area A4C s MOD 20.66 cm2 RA Vol/ BSA A4C s A-L 16.7 mL/m2 LA Area A2C s MOD 15.57 cm2 Ao Asc Diam d 3.26 cm F: 2.3 - 3.1 LV EF A4C MOD 55.7 % LV EF Teichholz 55.8 % LV EF A2C MOD 51.9 % LVEF (Kemp's) 53.95 % F: 54 - 74 LV EF Biplane MOD 53.9 % LV Volume 50.79 mL F: 46 - 106 SV 35.26 mL LV Volume Index 28.21 mL/m2 F: 29 - 61 SV Index 19.54 mL/m2 LV Vol Biplane MOD 65.4 mL FS 29.10 % M-Mode TAPSE 3.00 cm (M/F) >1.7 LV Diastology MV E' medial 0.066 (>0.07 m/s) E/A Ratio 0.8 LV E/e MED 8.25 (<14) MV E Vmax 0.54 (0.4-1.3 m/s) MV E' lateral 0.081 (>0.1 m/s) MV A Vmax 0.65 (0.4-1.3 m/s) LV E/e LAT 6.75 (<14) MV E/A Ratio 0.79 MV E/E' medial 8.25 MV E/E' lateral 6.75 Aortic Valve LVOT Area 2.99 cm2 AoV Area Vmax 2.08 cm2 LVOT Vmax 0.95 m/s AoV Area/ BSA (Vmax) 1.15 cm2/m2 LVOT Mean Paulie. 0.61 m/s RADHA Mean Paulie. 2.19 cm2 LVOT Peak Grad 3.6 mmHg RADHA Mean Paulie. Index 1.22 cm2/m2 LVOT Mean Grad 1.8 mmHg LVOT VTI 0.245 m LVOT Diam s 1.95 cm AoV Vmax 1.37 m/s Velocity Ratio 0.69 AoV Mean Paulie. 0.83 m/s AoV Peak Grad 7.5 mmHg LVOT SV 73.32 mL AoV Mean Grad 3.3 mmHg AoV VTI 0.273 m AoV Area VTI 2.68 cm2 AoV Area/ BSA (VTI) 1.49 cm/m2 Mitral Valve MV DT 321 (160-240 msec) MV PHT 93 msec MV Area PHT 2.36 cm2 MV VTI 0.265 m MV Area VTI 2.76 (4.0-6.0 cm2) Pulmonary Valve PV Vmax 0.92 (0.5-1.5 m/s) RVOT Peak Gr. 1.35 mmHg PV Peak Grad 3.4 mmHg RVOT Mean Gr. 0.75 mmHg PV Mean Grad 2.0 mmHg RVOT VTI 0.160 m PV VTI 0.212 m RVOT Vmax 0.58 m/s Tricuspid Valve TR Peak Grad 24.8 mmHg TR Vmax 2.49 m/s RA Pressure 3.00 mmHg RVSP (TR) 27.9 mmHg
== END 2020-06-15 04:07 ==
PROVIDERS: PCP Family Medicine; Visit Provider Nurse Practitioner Family
DX: R07.9 Chest pain, unspecified (principal); I07.1 Rheumatic tricuspid insufficiency
CPT/HCPCS: 93306

== ENCOUNTER → 2020-06-21 13:27 | Outpatient (BNVA) | payer MEDICARE, SELFPAY | PROVIDERS: PCP Family Medicine; Referring Provider Family Medicine; Visit Provider Surgery | DX: K29.70 Gastritis, unspecified, without bleeding (principal); I10 Essential (primary) hypertension | CPT/HCPCS: 99212 ==

== ENCOUNTER 2020-08-16 08:27 | Outpatient (CLI) | payer MEDICARE, SELFPAY ==
[2020-08-17 13:50] LABS: COVID-19 RT-PCR UVMMC Result Negative (Negative)
== END 2020-08-16 08:28 | disposition home or self-care (01) ==
LOC: LBO 08:28
PROVIDERS: PCP Family Medicine; Visit Provider Family Medicine
DX: Z11.52 Encounter for screening for COVID-19 (principal); Z01.818 Encounter for other preprocedural examination
CPT/HCPCS: U0003; U0005

== ENCOUNTER 2020-08-20 01:51 | Outpatient (CLI) | payer MEDICARE, SELFPAY ==
--- NOTE | 2020-08-20 | DI.RAD_ITS ---
TECHNIQUE: Modified barium swallow was performed in conjunction with speech pathology. CONTRAST MATERIAL: Oral barium contrast was administered. COMPARISON: No exams were available for comparison FINDINGS: Note that this is not a dedicated esophagram, distal esophagus not evaluated. There is no evidence of aspiration or significant penetration of thick or thin liquids, or barium coa juan manuel solid food. There is mild early spill of thin and thick liquids into the vallecular but no aspira tion. Speech pathology report to follow. . . . IMPRESSION: Modified barium swallow was performed in conjunction with speech pathology. Please refer to the [facility] pathology report to follow.
--- NOTE | 2020-08-20 14:44 | ST.MBS ---
Modified Barium Swallow Date of service: 08/20/20 Study Findings: Videofluoroscopic Swallowing Evaluation / Modified Barium Swallow Study (VFSE/MBSS) Speech Language Pathology Report HPI: Patient is a 80 year old female referred for VFSS/MBSS given frequent pharyngeal globus with both solids/liquids and recently reports episode of resulting emesis within past week. Medical History Anxiety with depression Dementia Pt denies this Dyspnea on exertion Fatigue Insomnia Migraine Nail abnormality Obstructive sleep apnea Orthostatic hypotension Osteoporosis Peripheral neuropathy Raynauds syndrome Restless leg syndrome Tubular adenoma Urticaria, chronic Surgical History H/O foot surgery r foot surgerly H/O knee surgery L knee surgery-patella History of colonoscopy Hx of tonsillectomy Predisposing dysphagia risk factors: Raynauds syndrome, Mild chronic gastritis, idiopathic peripheral / autonomic neuropathy Clinical signs of possible chronic dysphagia: frequent pharyngeal globus (solids, liquids) more recently resulting in emesis Precipitating dysphagia risk factors / triggering event: ongoing pharyngeal globus (solids, liquids) Previous Imaging: Recent upper endoscopy showed some mild antral gastritis; esophagus appeared normal although random biopsies showed mild reactive change Dentition/Oral Structures/Hygiene: upper/lower dentures present, lower dentures somewhat loose but do not seem to effect mastication per interview; oral hygiene appears adequate, reports consistent and appropriate oral care regimen at home Language: verbal expression/fluency, naming, repetition, and auditory comprehension WFL Hearing: DNT Mental Status: AAOx3, recall of current events intact Speech: WFL Laryngeal function exam: Secretions: WFL Vocal quality: WFL MPT: 10 secs (reduced) Endorses dyspnea, lately reports it has gotten better in past 3-5 weeks S/Z ratio: 1 (WFL) Pitch range: WFL Cough: (volitional) perceptually WFL Standardized: EAT-10 = 11 (abnormal, suggests possible inefficient oropharyngeal swallowing function) RSI / Reflux Symptom Index = 24 (elevated; scores above 13 are considered abnormal) SUBJECTIVE: Patient reports recent episode of pharyngeal globus with associated pain, followed by vomiting. States pharyngeal globus and associated pain also occurs with liquids, and occasionally with pills, although not as often. Patient reports feeling like she needs to physically push her throat and hold this posture (above sternal area, below larynx) to get food down, has done this for years. Reports currently taking famotidine 1x/day 30 minutes prior to breakfast. OBJECTIVE: Videofluoroscopic Swallow Study (VFSS) was conducted in the lateral and [id number] projections by Speech-Language Pathologist, in collaboration with Radiologist, to evaluate oropharyngeal swallow function. Anatomic view under fluoroscopy: WFL PO barium contrast trials: Oral barium water soluble contrast was administered: Varibar thin liquid IDDSI Level 0 (40% w/v), Varibar nectar thick/mildly thick liquid IDDSI Level 2 (40% w/v), Varibar thin honey/liquidised/moderately-thick IDDSI Level 3 (40% w/v), Varibar pudding/pureed/extremely thick IDDSI Level 4 (40% w/v), katie cracker coated in 3 mL Varibar pudding; 13 mm barium tablet - IDDSI Level 7 Regular Solid. PHYSIOLOGIC FINDINGS Oral Phase 1 Lip Closure: 0 no labial escape 2 Tongue Control: 2 posterior escape of less than half of bolus 3 Bolus Preparation/Mastication: 1 slow prolonged chewing/mashing with complete recollection 4 Bolus Transport/Lingual Motion: 0 brisk tongue motion 5 Oral residue: 1 trace residue lining oral structures; location superior tongue 6 Initiation of pharyngeal swallow: 1 bolus head in valleculae Pharyngeal Phase 7 Velar Elevation: 0 no bolus between soft palate pharyngeal wall 8 Laryngeal Elevation: 1 partial superior movement of thyroid cartilage/partial approximation of arytenoids to epiglottic petiole 9 Anterior Hyoid Excursion: 0 complete anterior movement 10 Epiglottic Movement: 1 partial inversion 11 Laryngeal Vestibule Closure: 1 incomplete; narrow column of contrast laryngeal vestibule 12 Pharyngeal Stripping Wave: 0 complete 13 Pharyngeal Contraction: 0 complete 14 PES/UES Openin complete distention and complete duration; no obstruction of flow 15 Tongue Base Retraction: 1 trace column of contrast between and PW 16 Pharyngeal residue: 0 complete pharyngeal clearance Prosper Pharyngeal Residue Severity Rating Scale (YPRS) (Alina, et al, 2015) Vallecula Residue Severity I None 0% No residue Pyriform Sinus Residue Severity I None 0% No residue Esophageal Phase (partial) NOTE: This study was performed for interpretation only of the oropharyngeal and pharyngoesophageal domains of swallowing. It is not intended to diagnose any other radiologic abnormalities or substitute for a formal esophagram study. 17 Esophageal Clearance Upright Position: 1 esophageal retention, mild (residual cleared with thin liquid wash) Overall 8-Point Penetration-Aspiration Scale (PAS) (Jaron et al, 1996) 2 - Material enters the airway, remains above the vocal folds, and is ejected from the airway. Clinical Indicator(s) of Prandial/Postprandial Aspiration: [N/A] Trialed Compensatory Swallow Strategies & Outcome: Bolus Modifications Delivery/Alternating Consistencies - Wash with thin liquid - successful in reducing report of pharyngeal stasis (not observed during study) Dysphagia Outcome and Severity Scale (KELLY) LEVEL 7 - Full PO: normal diet IMPRESSIONS: Oropharyngeal swallowing function deemed WFL: Swallow safety is preserved; swallow efficiency is preserved. Penetration of thin liquid via 5mL noted x1, quickly ejected from airway during swallow, otherwise no penetration noted; vallecular aggregation of masticated solid deemed WNL. Although no pharyngeal stasis observed during study, patient reported thin liquid wash as successful in reducing pharyngeal globus; pharyngeal stasis (not observed during study), may be referred sensation from mild esophageal retention. Patient appears to be at low risk for potential aspiration pna, pulmonary compromise, and/or malnutrition/dehydration. Diet modifications and/or changes to bolus administration as outlined may be partially beneficial in reducing pharyngeal globus and/or discomfort during/after swallowing. Of note: Readministered RSI (Reflux Symptom Index) today with score of 24, indicating possible significant reflux disease which does not appear adequately managed at this time per further motivational interview. Recommend patient follow up with GI and/or ENT as appropriate. Provided education re: outcomes from MBSS today and various behavioral management strategies to address reflux symptoms after MBSS was completed today, and pt was in agreement with recommendations as outlined below. PLAN: Diet recommendation: IDDSI Level(s) 7-Regular/Easy to Chew 0-Thin Liquids Diet texture modification is per patient's preference; please adjust diet textures at patient's discretion & collaboration with care team. Risk Management: Behavioral reflux precautions as discussed, including upright position during + 90 mins after meals Sleep with head slightly elevated as tolerated; physical mobility as tolerated; avoid eating 2-3 hours prior to sleeping; avoid trigger foods for reflux symptomology as identified Small bites, approx [id number], alternate with thin liquid Alternate solids/liquids as able Specialist referrals: GI given continued pain during/after swallowing resulting in recent emesis after swallowing; may consider ENT for further assessment of reflux symptomology and reported intermittent changes in vocal quality/hoarseness. Therapy: No further STEWARD/STEWARDESS BATH services warranted at this time. Patient aware to call office if she has further questions/concerns regarding MBSS or recommendations reviewed today. Thank you for allowing me to take part in this patient's care. Please feel free to contact me with any questions/concerns. Bev Poe MA CCC-STEWARD/STEWARDESS BATH Speech Language Pathologist STEWARD/STEWARDESS BATH SERVICE CODE(S): Modified Barium Swallow Study [id number], [id number]
[2020-08-20] MEDS: Barium Sulfate 81% w/w for Oral Suspension 148 GM BTL PO (15:23)
[2020-08-20] MEDS: Barium Sulfate 40% W/V 240 ML BTL PO (15:24)
== END 2020-08-20 01:52 | disposition home or self-care (01) ==
LOC: DI 01:52
PROVIDERS: PCP Family Medicine; Visit Provider Speech-Language Pathologist
DX: R13.13 Dysphagia, pharyngeal phase
CPT/HCPCS: 74221

== ENCOUNTER → 2020-09-18 13:24 | Outpatient (BNVA) | payer MEDICARE, SELFPAY | PROVIDERS: PCP Family Medicine; Referring Provider Family Medicine; Visit Provider Surgery | DX: R13.19 Other dysphagia (principal); Z98.890 Other specified postprocedural states | CPT/HCPCS: 99212; 99213 ==

== ENCOUNTER 2020-09-24 01:24 | Outpatient (CLI) | payer MEDICARE, SELFPAY ==
[2020-09-24] MEDS: Barium Sulfate 60% W/V 355 ML BTL PO (10:03)
[2020-09-24] MEDS: Simethicone/Sod Bicarb/Cit Ac, 4 gram PACKET 1 PACKET PO (10:04)
--- NOTE | 2020-09-24 10:04 | DI.RAD_ITS ---
EXAM: RF BARIUM SWALLOW CLINICAL HISTORY: Dysphagia to solids and liquids,R13.10 TECHNIQUE: 2D and realtime digital imaging was performed. CONTRAST MATERIAL: Oral barium Oral water soluble contrast was administered. COMPARISON: None FINDINGS: Preliminary chest x-ray reveals a small calcified granuloma in the peripheral left upper lobe, unchan ged from 2017. This esophagram was performed both standing and recumbent. The swallowing mechanism was grossly unremarkable and without aspiration. No evidence of Zenker's di verticulum. GE junction appears unremarkable. No evidence of hiatal hernia, Schatzki ring, nor sudeep lasia. There were, however, tertiary waves demonstrated in the mid-lower esophagus. No obvious esophageal varices evident. IMPRESSION: Mild tertiary waves were demonstrated. No obvious fixed lesions. No hiatal hernia. Given the histo ry here I recommend endoscopy.
== END 2020-09-24 01:44 ==
PROVIDERS: PCP Family Medicine; Visit Provider Surgery
DX: R13.10 Dysphagia, unspecified (principal)
CPT/HCPCS: 74221; J3490

== ENCOUNTER 2020-10-18 01:30 | Outpatient (CLI) | payer MEDICARE, SELFPAY ==
--- NOTE | 2020-10-18 | DI.DEXA_ITS ---
EXAM: XR DEXA BONE DENSITY W/WO AUDI CLINICAL HISTORY: OSTEOPOROSIS, M81.0,PREVENTIVE [facility] CARE,Z00.00 TECHNIQUE: [employer] Horizon C densitometer. COMPARISON: DX DEXA BONE DENSITY WITH AUDI from 09/13/2013 CT CHEST WITHOUT CONTRAST from 07/16/2016 DX DEXA BONE DENSITY WITH AUDI from 12/09/2016 DX DEXA BONE DENSITY WITH AUDI from 12/09/2016 CR,RF RF BARIUM SWALLOW from 09/24/2020 CR,RF RF BARIUM SWALLOW from 09/24/2020 FINDINGS: Lateral Spine Image: Stable moderate compression fractures T11 and T12. Left Hip: Total T-Score: -3.2. Femoral neck T-score -2.9 , consistent with osteoporosis.. No significant barrera ge when compared with previous exams Lumbar Spine: Total T-Score: -1.5 , consistent with osteopenia. Total Z-Score: 1.2 4.2 percent decrease in total T-score when compared with 2017. 6.9 percent decrease when compared w 2013 Left forearm T-score of the distal 3rd of -2.6, in the osteoporotic range. This represents an 8.5 pe rcent decrease when compared with 2017 and 8.2 percent decrease when compared with 2013. IMPRESSION: Stable osteoporosis of the left hip. Osteopenia of the lumbar spine and left forearm with decrease i n bone density when compared with previous exams.
--- NOTE | 2020-10-18 15:31 | DI.MAMMO_ITS ---
EXAM: MAMMO SCREENING CLINICAL HISTORY: SCREENING, Z00.00,PREVENTIVE HEALTH CARE TECHNIQUE: Mammograms were interpreted according to the usual protocol including computer analysis w [employer] CAD system, tomosynthesis and C-view imaging. COMPARISON: 2012 through 2016 FINDINGS: The breasts are composed of scattered fibroglandular densities, Breast Density category B. No suspicious masses or suspicious microcalcifications are seen. No skin thickening or abnormal axillary lymph nodes are seen. There has been no significant change from prior exams. There is mild motion on the medial aspect of the left cc view. The patient should return for repeat left cc view at no additional charge. IMPRESSION: BI-RADS Cat 0 - Assessment Incomplete: Need additional imaging evaluation. A repeat LEFT CC view is requested due to motion. . Breast Density - Category B, scattered fibroglandular densities. A negative radiographic report should not delay biopsy if a dominant or clinically suspicious mass is present. Up to ten percent of cancers are not identified on mammography. A negative report may reinforce clinical impression. Adenosis and dense breasts may obscure an underlying neoplasm. False positive reports average 6 to 10%. Patient will receive a letter notifying them of these results.
== END 2020-10-18 01:50 ==
PROVIDERS: PCP Family Medicine; Visit Provider Family Medicine
DX: Z12.31 Encounter for screening mammogram for malignant neoplasm of breast (principal); R92.8 Other abnormal and inconclusive findings on diagnostic imaging of breast; M81.0 Age-related osteoporosis without current pathological fracture; M85.88 Other specified disorders of bone density and structure, other site
CPT/HCPCS: 77063; 77067; 77080

== ENCOUNTER 2020-10-26 03:53 | Outpatient (CLI) | payer MEDICARE, SELFPAY ==
--- NOTE | 2020-10-26 13:51 | DI.MAMMO_ITS ---
EXAM: MG MAMMO SCREEN CALL BACK UNI CLINICAL HISTORY: F/U MAMMO, RPT VIEW FOR MOTION. TECHNIQUE: Craniocaudal and mediolateral oblique Full Field Digital Mammography views of the left br east with Computer Aided Diagnosis. COMPARISON: Priors available for comparison FINDINGS: Mammography/Tomosynthesis: Masses/Architectural Distortion: None seen. Microcalcifictions: No suspicious pleomorphic-type are seen. Skin Thickening/Nipple Retraction: None. IMPRESSION: 1. No evidence of malignancy is noted. 2. Unless there is more urgent need, follow-up screening mammography is recommended, as per [employer] guidelines. 3. The findings were discussed with the patient on the date of the examination. BI-RADS Category 1 - Negative Breast Density - Category B - Scattered areas of fibroglandular density Breast density Category C or D implies that the patient has dense breast tissue. Dense breast tissue can make it harder to find cancer on a mammogram. Dense breast tissue is also associated with an incr eased risk of breast cancer. This information about the result of the mammogram report was provided to the patient to raise their awareness. Use this report when you speak with the patient about their risks for breast cancer, which includes their family history. At that time, you may recommend additional screening tests (Ultrasoun d or MRI) as these tests may add significant information. A negative radiographic report should not delay biopsy if a dominant or clinically suspicious mass is present. Up to ten percent of cancers are not identified on mammography. A negative report may reinforce clinical impression. Adenosis and dense breasts may obscure an underlying neoplasm. False positive reports average 6 to 10%. Patient will receive a letter notifying them of these results.
== END 2020-10-26 04:13 ==
PROVIDERS: PCP Family Medicine; Visit Provider Family Medicine
DX: Z12.31 Encounter for screening mammogram for malignant neoplasm of breast (principal); R92.8 Other abnormal and inconclusive findings on diagnostic imaging of breast; N64.59 Other signs and symptoms in breast
CPT/HCPCS: 77063; 77067

== ENCOUNTER 2020-11-23 01:12 | Outpatient (CLI) | payer MEDICARE, SELFPAY ==
[2020-11-23] MEDS: Albuterol HFA 18 GM 200 PUFF INH IH (13:17)
[2020-11-23] MEDS: Inhaler, Assist Device 1 EACH MC (13:18)
== END 2020-11-23 01:13 | disposition home or self-care (01) ==
LOC: RT 01:13
PROVIDERS: PCP Family Medicine; Visit Provider Family Medicine
DX: R06.09 Other forms of dyspnea (principal); R00.2 Palpitations
CPT/HCPCS: 93246; 94060; 94726; 94729

== ENCOUNTER 2020-11-23 01:14 | Outpatient (CLI) | payer MEDICARE, SELFPAY ==
--- NOTE | 2020-11-26 19:34 | W.PFT ---
Date of service: 11/23/20 Time of Service: 10:06 Pulmonary Function Test Result Interpretation Spirometry: No evidence of obstructive airways disease, no bronchodilator response Lung Volumes: Normal, no evidence of restriction Diffusion Capacity: Borderline mildly reduced which is normal when corrected to alveolar volume Airway Pressure: Normal Impression Mild diffusion defect which is normal when corrected to alveolar volume. There is no evidence of obstructive or restrictive pattern. This constellation of findings can represent an effort related variant but can also go along with early, developing interstitial lung disease or pulmonary hypertension. Clinical Correlation therefore is recommended.
== END 2020-11-23 01:15 | disposition home or self-care (01) ==
LOC: RT 01:14
PROVIDERS: PCP Family Medicine; Visit Provider Family Medicine
DX: R00.2 Palpitations (principal)
CPT/HCPCS: 93246

== ENCOUNTER 2020-11-25 13:34 | Emergency (ER) | payer MEDICARE, SELFPAY ==
[2020-11-25] VITALS (17 sets, daily range): BP systolic 107–151; BP diastolic 56–90; PULSE 55–80; RESP 12–22; TEMP 36.3–36.5; O2SAT 96–100
--- NOTE | 2020-11-25 13:30 | RT.EKG_ITS ---
APPROVED REPORT Exam: Resting ECG Reason for Exam: SOB Patient Location: E HR:78 bpm ECG Measurements Heart Rate 78 AXIS PA 171 P 58 QRSd 92 QRS 1 QT 403 T 58 QTc 459 Conclusion Sinus rhythm.. Q waves anteroseptal Nonspecific st change
--- NOTE | 2020-11-25 14:00 | DI.RAD_ITS ---
Exam(s) XR CHEST 2V PA LATERAL EXAM: XR CHEST 2V PA LATERAL CLINICAL HISTORY: SOB. TECHNIQUE: 2D digital imaging was performed. COMPARISON: Chest x-ray 09/24/2020 FINDINGS: Heart size is normal. The mediastinum is not widened. There has been interval placement of a left anterior chest wall library monitor device. Right lung i s clear. Platelike atelectasis now evident in the left lung base. No evidence of pneumothorax. No pulmonary edema. Tiny calcified granuloma left upper lobe peripherally is again noted. IMPRESSION: Compared to 09/24/2020 there has been placement of left chest wall cardiac recorder device. No pulmo nary edema. Platelike atelectasis now evident in the lateral left lung base. There are no pleural e ffusions. On lateral view there is a compression fracture of a lower thoracic vertebral body, proximally 40 per cent, age indeterminate. DATA REPOSITORY: RADIATION DOSE DELIVERED:
[2020-11-25 14:25] LABS: Abs Immature Grans 0.01 10^3/uL (0.0-0.06); Absolute Basophil Count 0.02 10^3/uL (0.0-0.2); Absolute Eosinophil Count 0.24 10^3/uL (0.0-0.7); Absolute Monocyte Count 0.43 10^3/uL (0.1-0.8); Absolute Neutrophil Count 2.24 10^3/uL (1.2-6.7); Basophils % 0.4; Eosinophils % 5.3; HCT 41.6 % (36.0-46.0); HGB 13.9 g/dL (11.2-15.7); Immature Grans % 0.2; Lymphocytes % 35.2; MCH 30.2 pg (27.0-33.0); MCHC 33.4 % (32.0-36.0); MCV 90.4 fL (80-95); MPV 9.5 fL (8.0-11.0); Monocytes % 9.5; Neutrophils % 49.4; Nucleated RBC 0 %; Platelet Count 150 10^3/uL (130-400); RDW 12.2 % (11.7-14.6); RDW-SD 40.5 fL; WBC 4.54 10^3/uL (4.4-10.8)
--- NOTE | 2020-11-25 14:39 | W.ED.GENAD ---
Discharge Plan Disposition Patient Disposition: HOME Condition: Stable Discharge Details Clinical Impression: Dyspnea Primary Care Provider: Shawna Couch V ED Provider: Mitchell Thurman Home Meds and New Rx's Prescriptions: Continued calcium-magnesium Tablet 1 tab PO BID RF: 0 Gas-X 62.5 mg strip 1 strip PO DIRECTED PRNRF: 0 magnesium oxide 400 mg (241.3 mg magnesium) tablet 400 mg PO DAILY RF: 0 rivastigmine [Exelon Patch] 4.6 mg/24 hr patch 24 hour 4.6 mg TD DAILY RF: 0 clobetasol 0.05 % cream 1 applic topical BID RF: 0 ibuprofen 800 mg tablet 800 mg PO BID RF: 0 aspirin [Aspirin Low-Strength] 81 MG tablet,chewable 81 mg PO DAILY RF: 0 Centrum Silver 1 EACH tablet 1 tab PO DAILY RF: 0 lorazepam 1 MG tablet 1 mg PO DAILY PRNRF: 0 cholecalciferol (vitamin D3) [Vitamin D3] 1,000 UNIT capsule 1,000 unit PO DAILY RF: 0 vitamin X31-womzq acid 1 EACH tablet 1 ea PO DAILY RF: 0 gabapentin 300 mg capsule 400 mg PO QHS RF: 0 ropinirole [Requip] 3 MG tablet 1 tab PO DAILY RF: 0 mirtazapine [Remeron] 15 MG tablet 1 tab PO DAILY RF: 0 alendronate [Fosamax] 70 MG tablet 1 tab PO QWEEK RF: 0 Fish Oil 1 EACH capsule 1 cap PO DAILY RF: 0 Discharge Instructions Instructions: Dyspnea (ED) Additional Instructions: Work-up in the ER including blood work, EKG, chest x-ray are unremarkable for obvious emergent process. Unfortunately I can only see the raw data of your pulmonary function test, there is no official interpretation. Please watch for new or worsening symptoms and return to the ER for any concerns. I would like you to reach out to the office of your primary care provider tomorrow to discuss your ongoing symptoms and attempt to obtain official result of your pulmonary function test Medical Decision Making 80-year-old female who reports chronic dyspnea with exertion since May, had outpatient pulmonary function test performed on Thursday, would like the results of those, and reports that her symptoms overall are worse since having the test performed. She also is wearing a cardiac event monitor. Patient denies recent illness, trauma, fever, chest pain, cough, pain or swelling in her legs. Clinically she appears well, nontoxic. During my physical examination, while talking, O2 sats are 100% on room air. Lungs are clear to auscultation. She is afebrile. Given the duration of her symptoms, will obtain cardiac work-up including a single troponin and EKG. Patient has never had any chest pain throughout this. Although low suspicion, will also obtain a D-dimer. Will obtain chest x-ray. Will attempt to see if the PFTs have resulted Pulmonary function tests have not been officially read, unfortunately unable to give patient official result Laboratory results reveal a white blood cell count of 4.54 hemoglobin 13.9 hematocrit 41.6 platelet count 150. INR 1.0. D-dimer 534, negative when age-adjusted. Chemistries unremarkable. Troponin less than 0.05. Given dyspnea with exertion, BNP was obtained, BNP 252. Chest x-ray read by radiology as negative. Discussed work-up with patient and . Discussed the importance of return to the ER for new or worsening symptoms. Otherwise contacted their primary care provider tomorrow to discuss her ongoing symptoms and to obtain pulmonary function test results. Patient and family comfortable this plan and have no additional questions or Medical Records Medical records reviewed: Yes I reviewed the patient's medical records. Imaging Data Radiologic Study: Attestation: I personally reviewed and interpreted this imaging study as follows: Imaging: X-Ray Radiologist's impression: Chest x-ray negative Lab Data Lab results reviewed: Yes I reviewed the patient's lab results. Labs: Laboratory Tests Range/Units 11/25/20 11/25/20 11/25/20 14:15 14:15 14:15 WBC (4.4-10.8) 10^3/uL 4.54 RBC (3.93-5.22) 10^6/uL 4.60 Hgb (11.2-15.7) g/dL 13.9 Hct (36.0-46.0) % 41.6 MCV (80-95) fL 90.4 MCH (27.0-33.0) pg 30.2 MCHC (32.0-36.0) % 33.4 RDW (11.7-14.6) % 12.2 Plt Count (130-400) 10^3/uL 150 MPV (8.0-11.0) fL 9.5 Immature Gran % 0.2 Neutrophils % 49.4 Lymphocytes % 35.2 Monocytes % 9.5 Eosinophils % 5.3 Basophils % 0.4 Nucleated RBC % % 0 Absolute Neutrophils (1.2-6.7) 10^3/uL 2.24 Absolute Lymphocytes (1.2-3.4) 10^3/uL 1.60 Absolute Monocytes (0.1-0.8) 10^3/uL 0.43 Absolute Eosinophils (0.0-0.7) 10^3/uL 0.24 Absolute Basophils (0.0-0.2) 10^3/uL 0.02 PT (9.3-11.0) sec 10.2 INR (0.9-1.1) 1.0 APTT (21.0-27.5) sec 25.1 D-Dimer (<500) ng/mlFEU 534 H Sodium (136-145) mmol/L 141 Potassium (3.5-5.1) mmol/L 4.2 Chloride (98-107) mmol/L 106 Carbon Dioxide (21.0-32.0) mmol/L 30.4 Anion Gap (3-11) mmol/L 4.6 BUN (7-18) mg/dL 18 Creatinine (0.55-1.02) mg/dL 1.0 Estimated GFR/1.73 m2 (mL/min/1.73m2) 53.48 Glucose (74-106) mg/dL 92 Calcium (8.5-10.1) mg/dL 8.7 Magnesium (1.8-2.4) mg/dL 2.2 Total Bilirubin (0.2-1.0) mg/dL 0.5 AST (15-37) U/L 19 ALT (14-59) U/L 24 Alkaline Phosphatase (46-116) U/L 51 Troponin I (<0.06) ng/mL < 0.05 NT-Pro-B Natriuret Pep (<300) pg/mL 252 Total Protein (6.4-8.2) g/dL 7.1 Albumin (3.4-5.0) g/dL 3.5 ECG Data Attestation: I personally reviewed and interpreted this ECG (s) as follows: Interpretation: Please see official report by Dr. Regalado. Sinus rhythm, ventricular of 78. Nonspecific ST changes, Q waves present. No STEMI HPI General Mode of arrival: ambulatory. Date/Time Provider Initiated Documentation: 11/25/20 14:01. Limitations to Documentation: no limitations. Information obtained by: patient and family. HPI Narrative: This is a 80-year-old female, past medical history that includes anxiety, depression, dementia, dyspnea on exertion, fatigue, insomnia, migraines, sleep apnea, peripheral neuropathy, restless leg syndrome, presenting to the ER for chronic dyspnea on exertion and requesting her pulmonary function test. Patient states that she has been symptomatic since May. She been evaluated in the ER in the subsequently by her primary care provider. Of her pulmonary function test on Thursday, states that she had the test performed and feels as though her overall symptoms are worse since that time, worsening dyspnea with exertion, fatigue, general malaise. She also had a supervisor tower placed at that time. She denies recent illness or trauma. Denies headache, fever, chest pain, cough, abdominal pain, nausea or vomiting or pain or swelling her legs. Related Data Home Medications Medication Instructions Recorded Confirmed Centrum Silver 1 tab PO DAILY 12/12/14 11/25/20 aspirin [Aspirin Low-Strength] 81 mg PO DAILY 12/12/14 11/25/20 Fish Oil 1 cap PO DAILY 08/02/17 11/25/20 alendronate [Fosamax] 1 tab PO QWEEK 08/02/17 11/25/20 mirtazapine [Remeron] 1 tab PO DAILY 08/02/17 11/25/20 ropinirole [Requip] 1 tab PO DAILY 08/02/17 11/25/20 cholecalciferol (vitamin D3) 1,000 unit PO DAILY 08/20/17 11/25/20 [Vitamin D3] lorazepam 1 mg PO DAILY PRN 08/20/17 11/25/20 vitamin R60-qlpth acid 1 ea PO DAILY 08/20/17 11/25/20 magnesium oxide 400 mg (241.3 mg 400 mg PO DAILY 07/18/19 11/25/20 magnesium) tablet rivastigmine 4.6 mg/24 hour 4.6 mg TD DAILY 07/18/19 11/25/20 transdermal patch simethicone 62.5 mg oral strips 1 strip PO DIRECTED PRN each 07/18/19 11/25/20 calcium-magnesium tablet 1 tab PO BID tab 07/20/19 11/25/20 clobetasol 0.05 % topical cream 1 applic TOPICAL BID 04/20/20 11/25/20 ibuprofen 800 mg tablet 800 mg PO BID tab 04/20/20 11/25/20 gabapentin 400 mg PO QHS 06/08/20 11/25/20 Allergies Allergy/AdvReac Type Severity Reaction Status Date / Time hydroxyzine Allergy Severe Pt states Verified 11/25/20 13:47 lips and eyes swell up cetirizine [From Zyrtec] Allergy Mild Verified 11/25/20 13:47 rivastigmine [From Exelon] Allergy Mild Nausea and Unverified 11/25/20 13:47 rash sertraline Allergy Unknown Unverified 11/25/20 13:47 donepezil HCl [From Aricept] AdvReac Mild Nausea Unverified 11/25/20 13:47 General Stated Complaint: SOB KAILASH: 2 Review of Systems Constitutional Constitutional: Reports fatigue, Denies fever(s) and Denies headache(s) ENT Ears, Nose, Mouth, and Throat: Denies headache(s) and Denies neck pain Cardiovascular Cardiovascular: Denies chest pain, Reports dyspnea and Reports dyspnea on exertion Respiratory Respiratory: Denies cough, Reports dyspnea and Reports dyspnea on exertion Gastrointestinal Gastrointestinal: Denies abdominal pain, Denies nausea and Denies vomiting Musculoskeletal Musculoskeletal: Denies back pain and Denies neck pain Integumentary/Breasts Skin/Breast: Denies rash Neurologic Neurologic: Denies headache(s) Endocrine Endocrine: Reports fatigue Hematologic/Lymphatic Hematologic/Lymphatic: Denies easy bleeding and Denies easy bruising PFSH Medical History Anxiety with depression Dementia Pt denies this Dyspnea on exertion Fatigue Insomnia Migraine Nail abnormality Obstructive sleep apnea Orthostatic hypotension Osteoporosis Peripheral neuropathy Raynauds syndrome Restless leg syndrome Tubular adenoma Urticaria, chronic Surgical History H/O foot surgery r foot surgerly H/O knee surgery L knee surgery-patella History of colonoscopy Hx of tonsillectomy Family History Mother Dementia Social History Smoking/Tobacco Use Status: Never Smoking risk assessment performed?: Yes Alcohol Intake: never Drug use: Never Substance use type: does not use Household members: spouse Number of Children: 2 Education Level: high school 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 Current gender identity: female Do you feel safe at home: Yes Do you feel safe in your relationship?: Yes Exam Const General: cooperative, healthy appearing, comfortable and no acute distress Orientation: alert and awake HENMT Head: normal to inspection, normocephalic and atraumatic Face and sinus: normal facial exam Mouth: moist mucous membranes Eyes General: appearance normal, both eyes and all related structures Conjunctivae: conjunctivae normal Neck Neck: normal visual inspection, full ROM, trachea midline and supple Resp Effort & Inspection: normal respiratory effort and able to speak in complete sentences Auscultation: clear to auscultation bilaterally Cardio Rate: regular rate Rhythm: regular rhythm GI Palpation: soft, not firm, no guarding, no pulsatile masses and nontender Back/Spine/Pelvis Back: No back tenderness Skin General skin exam: no rashes or lesions noted Neuro General: patient alert, patient awake, moves all extremities and no focal motor deficits Cognition: normal cognition Speech: speech normal Gait: normal gait Motor: muscle tone normal throughout Sensory Exam: no sensory deficits noted Extrem General: normal to inspection, full ROM, capillary refill normal, no pedal edema and no calf tenderness Psych Appearance: grossly normal Mental Status: mental status grossly normal Course Vital Signs Vital signs: Vital Signs Temperature 36.3 C L 11/25/20 13:40 Pulse 80 11/25/20 13:40 Respiratory Rate 16 11/25/20 13:40 Blood Pressure 151/67 H 11/25/20 13:40 Pulse Oximetry 98 11/25/20 13:40 Temperature 36.3 C L 11/25/20 13:40 Temperature Source Temporal Artery Scan 11/25/20 13:40 Pulse 70 11/25/20 14:31 Pulse 71 11/25/20 14:31 Respiratory Rate 14 11/25/20 14:31 Respiratory Effort 11/25/20 14:14 Respiratory Depth Normal 11/25/20 14:14 Respiratory Pattern Normal 11/25/20 14:14 Blood Pressure 116/68 11/25/20 14:31 Blood Pressure Mean 78 11/25/20 14:31 Blood Pressure Position Sitting 11/25/20 13:40 Pulse Oximetry 98 11/25/20 14:31 Oxygen Delivery Method Room Air 11/25/20 13:40 Oxygen Flow Rate 0 11/25/20 13:40 Pain Level 0 11/25/20 13:40 Lab/Test Results Lab/Test Results: Laboratory Tests Range/Units 11/25/20 14:15 WBC (4.4-10.8) 10^3/uL 4.54 RBC (3.93-5.22) 10^6/uL 4.60 Hgb (11.2-15.7) g/dL 13.9 Hct (36.0-46.0) % 41.6 MCV (80-95) fL 90.4 MCH (27.0-33.0) pg 30.2 MCHC (32.0-36.0) % 33.4 RDW (11.7-14.6) % 12.2 Plt Count (130-400) 10^3/uL 150 MPV (8.0-11.0) fL 9.5 Immature Gran % 0.2 Neutrophils % 49.4 Lymphocytes % 35.2 Monocytes % 9.5 Eosinophils % 5.3 Basophils % 0.4 Nucleated RBC % % 0 Absolute Neutrophils (1.2-6.7) 10^3/uL 2.24 Absolute Lymphocytes (1.2-3.4) 10^3/uL 1.60 Absolute Monocytes (0.1-0.8) 10^3/uL 0.43 Absolute Eosinophils (0.0-0.7) 10^3/uL 0.24 Absolute Basophils (0.0-0.2) 10^3/uL 0.02
[2020-11-25 14:40] LABS: PTT Activated 25.1 sec (21.0-27.5); Prothrombin Time 10.2 sec (9.3-11.0)
[2020-11-25 14:47] LABS: ALT 24 U/L (14-59); AST 19 U/L (15-37); Albumin 3.5 g/dL (3.4-5.0); Alkaline Phosphatase 51 U/L (46-116); Anion Gap 4.6 mmol/L (3-11); BUN 18 mg/dL (7-18); Bilirubin, Total 0.5 mg/dL (0.2-1.0); CO2 30.4 mmol/L (21.0-32.0); Calcium 8.7 mg/dL (8.5-10.1); Chloride 106 mmol/L (98-107); Estimated GFR 53.48 (mL/min/1.73m2); Glucose 92 mg/dL (74-106); Magnesium 2.2 mg/dL (1.8-2.4); NT-proBNP 252 pg/mL (<300); Potassium 4.2 mmol/L (3.5-5.1); Sodium 141 mmol/L (136-145); Total Protein 7.1 g/dL (6.4-8.2)
[2020-11-25 14:50] LABS: Troponin I < 0.05 ng/mL (<0.06)
[2020-11-25 14:58] LABS: D-Dimer 534 ng/mlFEU (<500)
--- NOTE | 2020-11-25 15:07 | DI.VRAD_ITS ---
PROCEDURE INFORMATION: Exam: XR Chest Exam date and time: 11/25/2020 2:11 PM Age: 80 years old Clinical indication: Shortness of breath TECHNIQUE: Imaging protocol: XR of the chest. Views: 2 views. COMPARISON: CT CHEST PE CTA 06/08/2020 5:17 PM FINDINGS: Tubes, catheters and devices: Electrode recorder projects over left anterior hemithorax. Lungs: Strand of atelectasis or fibrosis in the left costophrenic angle. Calcified granuloma left upper lung laterally. Pleural spaces: Unremarkable. No pleural effusion. No pneumothorax. Heart/Mediastinum: Unremarkable. No cardiomegaly. Vasculature: Aortic calcifications. Diaphragm: Elevated right hemidiaphragm. Bones/joints: Old right rib fractures. IMPRESSION: No acute findings Dictated and Authenticated by: Marta Miller MD. Ordering:KJ Medrano MD
== END 2020-11-25 14:02 | disposition home or self-care (01) ==
PROVIDERS: Emergency Provider Physician Assistant; PCP Family Medicine
DX: R06.09 Other forms of dyspnea (principal)
CPT/HCPCS: 80053; 93005; 99284; 71046; 83735; 83880; 84484; 85025; 85379; 85610; 85730; 93010; 99283

== ENCOUNTER 2020-11-29 12:42 | Outpatient (REF) | payer MEDICARE, SELFPAY ==
[2020-11-29 15:20] LABS: C-Reactive Protein 0.21 mg/dL (0.0-0.3)
[2020-11-29 15:25] LABS: ESR 11 mm/hr (0-30)
[2020-11-29 15:58] LABS: Vitamin B12 1639 pg/mL (193-986)
[2020-11-30 15:13] LABS: COVID-19 RT-PCR UVMMC Result Negative (Negative)
--- NOTE | 2020-12-13 08:46 | ZIOP_ITS ---
Date of service: 12/13/20 Time of Service: 08:46 14 Day Archeologist Referring Provider:: Ti Indications:: palps Note: There is a 14-day monitor order for indication of palpitations. ?The patient was in normal sinus rhythm for the majority of the recording with an average heart rate of 59 bpm. ?There were 14 episodes of supraventricular tachycardia with the longest lasting 27 beats. None of these were reported as symptomatic. ?There were no episodes of ventricular tachycardia and rare PACs/PVCs. ?There were no episodes of atrial fibrillation, no pauses greater than 3 seconds and no evidence of high degree heart block. ?There were 27 patient triggered events. 26 of them were not associated with any arrhythmia. One of them was associated with sinus bradycardia.
== END 2020-11-29 12:43 | disposition home or self-care (01) ==
LOC: NCHCN 12:42
PROVIDERS: PCP Family Medicine; Visit Provider Family Medicine
DX: R53.83 Other fatigue (principal); R06.09 Other forms of dyspnea; Z20.822 Contact with and (suspected) exposure to COVID-19; M79.18 Myalgia, other site; M79.604 Pain in right leg; M79.605 Pain in left leg; R53.1 Weakness; G25.81 Restless legs syndrome; G62.9 Polyneuropathy, unspecified
CPT/HCPCS: 82533; 85652; U0003; U0005; 82607; 84443; 86140

== ENCOUNTER 2020-12-13 08:46 | Outpatient (CLI) | payer MEDICARE, SELFPAY | END 2020-12-13 08:47 | LOC: CARDO 12-17 14:53 | PROVIDERS: PCP Family Medicine; Referring Provider Family Medicine; Visit Provider Internal Medicine Cardiovascular Disease | DX: R00.2 Palpitations (principal); I47.1 Supraventricular tachycardia; I49.1 Atrial premature depolarization; I49.3 Ventricular premature depolarization | CPT/HCPCS: 93248 ==

== ENCOUNTER → 2021-02-06 14:32 | Outpatient (BNVA) | payer MEDICARE, SELFPAY | PROVIDERS: PCP Family Medicine; Referring Provider Family Medicine; Visit Provider Nurse Practitioner Adult Health | DX: G30.9 Alzheimer's disease, unspecified (principal); F02.80 Dementia in other diseases classified elsewhere, unspecified severity, without behavioral disturbance, psychotic disturbance, mood disturbance, and anxiety; G60.9 Hereditary and idiopathic neuropathy, unspecified; G47.33 Obstructive sleep apnea (adult) (pediatric); Z99.89 Dependence on other enabling machines and devices | CPT/HCPCS: 99204; 99215; G2212 ==

== ENCOUNTER → 2021-03-06 13:02 | Outpatient (BNVA) | payer MEDICARE, SELFPAY | PROVIDERS: PCP Family Medicine; Referring Provider Family Medicine; Visit Provider Nurse Practitioner Adult Health | DX: G30.9 Alzheimer's disease, unspecified (principal); F02.80 Dementia in other diseases classified elsewhere, unspecified severity, without behavioral disturbance, psychotic disturbance, mood disturbance, and anxiety | CPT/HCPCS: 99212; 99213 ==

== ENCOUNTER → 2021-09-10 14:05 | Outpatient (BNVA) | payer MEDICARE, SELFPAY | PROVIDERS: PCP Family Medicine; Referring Provider Family Medicine; Visit Provider Nurse Practitioner Adult Health | DX: G31.84 Mild cognitive impairment of uncertain or unknown etiology (principal); F41.9 Anxiety disorder, unspecified | CPT/HCPCS: 99213 ==

== ENCOUNTER 2021-10-08 02:56 | Outpatient (CLI) | payer MEDICARE, SELFPAY ==
[2021-10-08 13:11] LABS: ESR 7 mm/hr (0-30)
[2021-10-08 13:50] LABS: TSH (W/Ref FT4) 1.13 uIU/mL (0.36-3.74)
[2021-10-08 22:34] LABS: Thyroglobulin Antibody <15 U/mL (<=60); Thyroperoxidase Antibody 32 U/mL (<=60)
[2021-10-09 15:34] LABS: ANA Interpretation Positive (Negative); ANA Titer Pattern 1:80 Homogeneous
== END 2021-10-08 02:57 | disposition home or self-care (01) ==
LOC: LBO 02:57
PROVIDERS: PCP Family Medicine; Visit Provider Physician Assistant
DX: R53.82 Chronic fatigue, unspecified (principal); L50.8 Other urticaria
CPT/HCPCS: 36415; 85652; 86376; 84443; 86038

== ENCOUNTER → 2022-02-27 13:15 | Outpatient (BNVA) | payer MEDICARE, SELFPAY | PROVIDERS: PCP Family Medicine; Referring Provider Family Medicine; Visit Provider Nurse Practitioner Adult Health | DX: F41.9 Anxiety disorder, unspecified (principal); G31.84 Mild cognitive impairment of uncertain or unknown etiology | CPT/HCPCS: 99213; 99214 ==

== ENCOUNTER 2022-03-06 19:53 | Inpatient (IN) | payer MEDICARE, SELFPAY ==
[2022-03-06] VITALS (28 sets, daily range): BP systolic 123–162; BP diastolic 61–96; PULSE 52–61; RESP 11–23; TEMP 36.8; O2SAT 96–99
--- NOTE | 2022-03-06 19:45 | RT.EKG_ITS ---
APPROVED REPORT Exam: Resting ECG Reason for Exam: dizzy Patient Location: E HR:52 bpm ECG Measurements Heart Rate 52 AXIS MA 152 P 45 QRSd 91 QRS -4 QT 465 T 30 QTc 432 Conclusion Sinus bradycardia...rate< 60
--- NOTE | 2022-03-06 21:00 | DI.CT_ITS ---
Exam(s) CT HEAD WO EXAM: CT HEAD WO CLINICAL HISTORY: dizzy. TECHNIQUE: Imaging Protocol: Axial computed tomography images with coronal and sagittal reformatted images were created and reviewed COMPARISON: CT CT HEAD CERV SPINE FACIAL WO from 08/26/2019 FINDINGS: There are no skull fractures nor fluid in the visualized paranasal sinuses. There is no evidence of intracranial hemorrhage, mass effect, or shift of midline structures. There are no extra-axial fluid collections. The ventricles are not enlarged or shifted and there is no blo od within the ventricular system nor within the basal cisterns. IMPRESSION: No acute intracranial findings on this noninfused CT scan of the brain. No significant change compar ed to prior CT scan of 08/26/2019 RADIATION DOSE DELIVERED: 718.8mGy.cm Total DLP DATA REPOSITORY: All CT scans at this facility are submitted to the National Radiology Data Registry (NRDR) Dose Index Registry (DIR) with the [employer] (ACR). RADIATION OPTIMIZATION: All CT scans at this facility use at least one of these dose optimization te chniques: automated exposure control; mA and/or kV adjustment per patient size (includes targeted exa ms where dose is matched to clinical indication); or iterative reconstruction.
--- NOTE | 2022-03-06 21:05 | DI.RAD_ITS ---
Exam(s) XR CHEST 1V IN DI DEPT EXAM: XR CHEST 1V IN DI DEPT CLINICAL HISTORY: shortness of breath. TECHNIQUE: 2D digital imaging was performed. COMPARISON: CR,XR XR CHEST 2V PA LATERAL from 11/25/2020 FINDINGS: Single AP portable view. Heart size is upper normal. The mediastinum is not widened. There is platelike atelectasis or scarring in the left lung base, unchanged from 11/25/2020 There is atelectasis in the right infrahilar region. This is also unchanged from prior study. Mild elevation of the right hemidiaphragm is also unchanged. IMPRESSION: No acute pulmonary findings on this single AP portable view of the chest.Bilateral findings described above are unchanged from 11/25/2020. DATA REPOSITORY: RADIATION DOSE DELIVERED: All CT scans at this facility use at least one of these dose optimization techniques: automated exposure control; mA and/or kV adjustment per patient size (includes targeted e xams where dose is matched to clinical indication); or iterative reconstruction.
[2022-03-06] MEDS: Lactated Ringers 1,000 ML 1000 ML IV (21:30)
[2022-03-06 21:42] LABS: Abs Immature Grans 0.02 10^3/uL (0.0-0.06); Absolute Basophil Count 0.04 10^3/uL (0.0-0.2); Absolute Lymphocyte Count 2.17 10^3/uL (1.2-3.4); Absolute Monocyte Count 0.51 10^3/uL (0.1-0.8); Absolute Neutrophil Count 2.52 10^3/uL (1.2-6.7); Basophils % 0.7; Eosinophils % 5.4; HCT 41.1 % (36.0-46.0); HGB 14.1 g/dL (11.2-15.7); Immature Grans % 0.4; MCH 30.1 pg (27.0-33.0); MCHC 34.3 % (32.0-36.0); MCV 88 fL (80-95); MPV 9.3 fL (8.0-11.0); Monocytes % 9.2; Neutrophils % 45.3; Platelet Count 150 10^3/uL (130-400); RBC 4.68 10^6/uL (3.93-5.22); RDW 12.1 % (11.7-14.6); RDW-SD 38.9 fL; WBC 5.56 10^3/uL (4.4-10.8)
[2022-03-06 21:48] LABS: Bilirubin Negative (Negative); Blood Negative (Negative); Clarity Clear (Clear); Glucose Negative (Negative); Ketones Negative (Negative); Leukocyte Esterase Negative (Negative); Nitrite Negative (Negative); Urobilinogen 0.2 EU/dL (Up TO 0.2)
--- NOTE | 2022-03-06 21:55 | DI.VRAD_ITS ---
PROCEDURE INFORMATION: Exam: XR Chest Exam date and time: 03/06/2022 21:47 Age: 81 years old Clinical indication: Shortness of breath TECHNIQUE: Imaging protocol: Radiologic exam of the chest. Views: 1 view. COMPARISON: CR XR CHEST 2V PA LATERAL 11/25/2020 14:40 FINDINGS: Lungs: Minimal subsegmental atelectasis in the right mid lung zone and left lung base. No airspace consolidation. Pleural spaces: No pleural effusion. No pneumothorax. Heart/Mediastinum: No cardiomegaly. Diaphragm: Elevated right hemidiaphragm. Bones/joints: No acute fracture. IMPRESSION: Minimal subsegmental atelectasis in the right mid lung zone and left lung base. Dictated and Authenticated by: Jeana Abreu MD. Ordering:YOSELYN Winchester MD
--- NOTE | 2022-03-06 21:59 | DI.VRAD_ITS ---
PROCEDURE INFORMATION: Exam: CT Head Without Contrast Exam date and time: 03/06/2022 21:52 Age: 81 years old Clinical indication: Dizziness TECHNIQUE: Imaging protocol: Computed tomography of the head without contrast. COMPARISON: CT HEAD CERV SPINE FACIAL WO 08/26/2019 16:10 FINDINGS: Brain: Atrophy and chronic appearing white matter changes. No edema or hemorrhage. Cerebral ventricles: No ventriculomegaly. Paranasal sinuses: No acute sinusitis. Mastoid air cells: No mastoid effusion. Bones/joints: No acute fracture. Soft tissues: No suspicious lesions. IMPRESSION: No acute intracranial findings. Dictated and Authenticated by: Jeana Abreu MD. Ordering:YOSELYN Winchester MD
[2022-03-06 22:00] LABS: ALT 30 U/L (14-59); AST 24 U/L (15-37); Albumin 3.5 g/dL (3.4-5.0); Alkaline Phosphatase 50 U/L (46-116); Anion Gap 5.5 mmol/L (3-11); BUN 23 mg/dL (7-18); Bilirubin, Total 0.3 mg/dL (0.2-1.0); CO2 30.5 mmol/L (21.0-32.0); CREATININE 0.8 mg/dL (0.55-1.02); Calcium 8.8 mg/dL (8.5-10.1); Chloride 102 mmol/L (98-107); Glucose 107 mg/dL (74-106); Sodium 138 mmol/L (136-145); Total Protein 7.2 g/dL (6.4-8.2)
[2022-03-06 22:11] LABS: Magnesium 2.3 mg/dL (1.8-2.4); TSH (W/Ref FT4) 2.04 uIU/mL (0.36-3.74); Troponin I < 50 ng/L (<or=60)
--- NOTE | 2022-03-06 22:45 | DI.CT_ITS ---
Exam(s) CT BRAIN NECK CTA EXAM: CT BRAIN NECK CTA CLINICAL HISTORY: lightheaded/dizziness, presyncope. TECHNIQUE: Imaging Protocol: Axial CT angiography was performed with multi-slice acquisition and mu lti-planar and/or 3D reconstructions. CONTRAST MATERIAL: Intravenous: Omnipaque 350 Contrast volume:85 mL COMPARISON: CT CT CHEST PE CTA from 06/08/2020 FINDINGS: CTA Neck W: Aortic arch anatomy: The aortic arch anatomy is conventional. Anterior circulation: There is no stenosis at the origin the great vessels off the aortic arch. Both common carotid arteri es ascend with normal luminal diameters. There is minimal plaque at the carotid bifurcations and pro ximal internal carotid arteries on both sides the neck. No hemodynamically significant stenosis. Pr oximal internal carotid arteries above this level in the neck are also demonstrated be patent as well as patent in the skull base-carotid canals. Posterior circulation: Both vertebral arteries originate off of the subclavian arteries. No significant stenosis at their o rigins nor in the subclavian arteries proximal to the vertebral artery takeoff points. The right chad tebral artery is dominant. Both vertebral arteries exhibit no evidence of intraluminal thrombus nor dissection within the foramen transversarium as they ascend in the neck. At the skull base the basil ar artery is formed by contribution from both vertebral arteries. CTA Brain W: Anterior circulation: Both internal carotid arteries are patent in the skull base as well as in the cavernous sinuses. Ess entially noncalcified despite this patient's advanced age. Supraclinoid aspects of the internal augustine tid arteries are patent. Both A1 segments are patent. Both anterior cerebral arteries are patent. There is no obvious aneurysm at the level of the anterior communicating artery. Both middle cerebral arteries are patent. No significant stenosis nor occlusion. No aneurysms. Posterior circulation: Vertebral artery exhibits normal diameter without evidence of intraluminal thrombus nor dissection. Distally gives off patent bilateral superior cerebellar arteries and above this level terminates as p atent right posterior cerebral artery. The left posterior cerebral artery is supplied by posterior c ommunicating artery on the left side of the [id number]. There is no aneurysm of the tip of the basilar artery nor elsewhere in the vozofh-ui-Cryman. CT BRAIN: There is no evidence of intracranial hemorrhage, mass effect, or shift of midline structures. There are no extra-axial fluid collections. Ventricles are not enlarged or shifted. There are no ring enh ancing lesions in the brain and no abnormal meningeal enhancement. IMPRESSION: 1. Patent carotid and vertebral arteries in the neck with no evidence of significant stenosis of thes e vessels. No evidence of dissection. 2. Patent intracranial arteries. No significant stenosis nor dissection. No aneurysms evident. 3. No ring enhancing lesions in the brain nor other significant intracranial findings. RADIATION DOSE DELIVERED: 1,095.5mGy.cm Total DLP DATA REPOSITORY: All CT scans at this facility are submitted to the National Radiology Data Registry (NRDR) Dose Index Registry (DIR) with the [employer] (ACR). RADIATION OPTIMIZATION: All CT scans at this facility use at least one of these dose optimization te chniques: automated exposure control; mA and/or kV adjustment per patient size (includes targeted exa ms where dose is matched to clinical indication); or iterative reconstruction.
--- NOTE | 2022-03-06 22:45 | DI.CT_ITS ---
Exam(s) CT CHEST PE CTA EXAM: CT CHEST PE CTA CLINICAL HISTORY: exclude pe. Shortness of breath TECHNIQUE: Imaging Protocol: CT angiography of the chest was performed using pulmonary embolus rasta col. Multi planar reconstructions were performed. CONTRAST MATERIAL: Intravenous: Omnipaque 350 Contrast volume: 65 cc COMPARISON: CT CT BRAIN NECK CTA from 03/06/2022 FINDINGS: CHEST: PULMONARY ARTERIES: There are no intraluminal filling defects to suggest acute pulmonary emboli. LUNGS: There are no infiltrates nor evidence of pulmonary infarction.. Small calcified granuloma note d laterally in the left upper lobe. MEDIASTINUM: There is no hilar nor mediastinal adenopathy. Visualized thyroid unremarkable. CARDIAC: Heart size is upper normal. There is no pericardial effusion.Caliber of the thoracic aorta is within normal limits. No evidence of dissection. There is no significant shift of the interventri cular septum. PARTIALLY VISUALIZED UPPERMOST ABDOMEN: No obvious findings OSSEOUS: No acute fractures. Healed right rib fractures noted. No osseous lesions.. IMPRESSION: 1. No evidence of acute pulmonary emboli. No evidence of pulmonary infarction.No pleural effusions. 2. No intrathoracic adenopathy. 3. RADIATION DOSE DELIVERED: 396.19mGy.cm Total DLP DATA REPOSITORY: All CT scans at this facility are submitted to the National Radiology Data Registry (NRDR) Dose Index Registry (DIR) with the [employer] (ACR). RADIATION OPTIMIZATION: All CT scans at this facility use at least one of these dose optimization te chniques: automated exposure control; mA and/or kV adjustment per patient size (includes targeted exa ms where dose is matched to clinical indication); or iterative reconstruction.
--- NOTE | 2022-03-06 23:07 | W.ED.GENAD ---
Discharge Plan Disposition Patient Disposition: [facility] INPATIENT Condition: Stable Discharge Details Clinical Impression: Pre-syncope Admit Date/Time: 03/07/22 00:39 Admit Provider: Judith Bowling Attending Provider: Judith Bowling Primary Care Provider: Shawna Couch V ED Provider: Jason Sethi Discharge Data Discharge Date/Time-TO BE ENTERED AT DEPARTURE: 03/07/22 02:02 Medical Decision Making <CHINO Finch - Last Filed: 03/07/22 23:20> Unfortunately this patient has been a challenging historian, she was given 1 L of IV fluids, orthostatics were checked and negative She is able to stand but is reporting a sensation of feeling like she might pass out She has a guarded gait Her exam is otherwise neurologically nonfocal She has stable vital aside from a slight decrease in her heart rate, unlikely to cause symptoms, not on any medication for hypertension or rate control but does have history of SVT, no evidence of SVT in the emergency department Secondary to her age and complaints of presyncope, I do recommend overnight admission Case was discussed with Dr. Bowling, who requests ct head, neck, and chest prior to admission Medical Records Medical records reviewed: Yes I reviewed the patient's medical records. <Jason Sethi MD - Last Filed: 03/07/22 00:42> Unfortunately this patient has been a challenging historian, she was given 1 L of IV fluids, orthostatics were checked and negative She is able to stand but is reporting a sensation of feeling like she might pass out She has a guarded gait Her exam is otherwise neurologically nonfocal She has stable vital aside from a slight decrease in her heart rate, unlikely to cause symptoms, not on any medication for hypertension or rate control but does have history of SVT, no evidence of SVT in the emergency department Secondary to her age and complaints of presyncope, I do recommend overnight admission Case was discussed with Dr. Bowling, who requests ct head, neck, and chest prior to admission patient signed out to me pending imaging which was negative, pt stable, discussed with Dr. Bowling who accepts for observation admission HPI <CHINO Finch - Last Filed: 03/07/22 23:20> General Date/Time Provider Initiated Documentation: 03/06/22 19:57. HPI Narrative: This 81-year-old female with history of dementia, anxiety, dyspnea presents with report of feeling generally unwell. She describes the presyncopal sensation, she states when she gets up to walk she feels like she is going to pass out. Is been going on for approximately 3 days per patient. She denies any new life stressors, new medication. She denies any chest pain. She denies any current shortness of breath. She denies any significant change in exertional symptoms. She states she feels exhausted . She denies any palpitations in her chest. She denies any falls or injuries. She states she is having difficulty getting around secondary to her symptoms. She denies any dizziness. Related Data Home Medications Medication Instructions Recorded Confirmed aspirin 81 mg chewable tablet 81 mg PO DAILY 12/12/14 03/06/22 (Aspirin Low-Strength) lctiflwh-inp-opuih acid 0.4 1 tab PO DAILY 12/12/14 03/06/22 mg-lycopene 300 mcg-lutein 250 mcg tablet (Centrum Silver) omega-3 fatty acids-fish oil 340 1 cap PO DAILY 08/02/17 03/06/22 mg-1,000 mg capsule (Fish Oil) rivastigmine 4.6 mg/24 hour 4.6 mg transdermal DAILY 07/18/19 03/06/22 transdermal patch (Exelon Patch) simethicone 62.5 mg oral strips 1 strip PO DIRECTED PRN 07/18/19 03/06/22 (Gas-X) cholecalciferol (vitamin D3) 25 25 mcg PO DAILY 01/09/21 03/06/22 mcg (1,000 unit) capsule clobetasol 0.05 % topical cream 1 applic topical BID 01/09/21 02/27/22 cyanocobalamin (vitamin B-12) 1,000 mcg PO DAILY 01/09/21 03/06/22 1,000 mcg capsule diclofenac sodium 1 % topical gel 2 g topical BID PRN 01/09/21 03/06/22 (Voltaren) estradiol 0.01% (0.1 mg/gram) 1 g vaginal .1-3 times a week 01/09/21 02/27/22 vaginal cream (Estrace) gabapentin 300 mg capsule 600 mg PO QHS 01/09/21 03/06/22 hawthorn 500 mg capsule 1 mg PO DAILY 01/09/21 02/27/22 ropinirole 0.5 mg tablet 0.5 mg PO DAILY 05/09/21 03/06/22 memantine 10 mg tablet 10 mg PO BID #180 tabs 09/10/21 03/06/22 mirtazapine 30 mg tablet 15 mg PO DAILY 09/10/21 03/06/22 escitalopram oxalate 10 mg tablet 10 mg PO DAILY #30 tabs 01/20/22 03/06/22 Previous Rx's Medication Instructions Recorded memantine 10 mg tablet 10 mg PO BID #180 tabs 09/10/21 escitalopram oxalate 10 mg tablet 10 mg PO DAILY #30 tabs 01/20/22 Allergies Allergy/AdvReac Type Severity Reaction Status Date / Time hydroxyzine Allergy Severe Pt states Verified 03/06/22 20:25 lips and eyes swell up cetirizine [From Zyrtec] Allergy Mild Verified 03/06/22 20:25 rivastigmine [From Exelon] Allergy Mild Nausea and Verified 03/06/22 20:25 rash sertraline Allergy Unknown Verified 03/06/22 20:25 donepezil HCl [From Aricept] AdvReac Mild Nausea Verified 03/06/22 20:25 General Stated Complaint: Dizzy/Sync KAILASH: 2 Review of Systems <CHINO Finch - Last Filed: 03/07/22 23:20> All systems reviewed & are unremarkable except as noted in HPI and below PFSH <CHINO Finch - Last Filed: 03/07/22 23:20> All Active Problems Dizziness (Acute) Pre-syncope (Acute) Lack of motivation (Acute) Impacted cerumen, bilateral (Acute) Alzheimer's dementia (Acute) very mild Anxiety with depression (Acute) Health care proxy on file (Chronic) Nahomi Breaux, daughter SHAR (Physician Orders for Life-Sustaining Treatment) (Chronic) signed 01/22/21 FULL CODE Insomnia (Acute) MCI (mild cognitive impairment) (Acute) Paroxysmal SVT (supraventricular tachycardia) (Chronic) Goals of care, counseling/discussion (Acute) Palliative care patient (Acute) Anxiety about health (Acute) Dyspnea (Acute) Urticaria, chronic (Chronic) Discharge planning issues (Acute) DVT prophylaxis (Acute) Restless leg syndrome (Acute) Normal colonoscopy (Acute) Mild chronic gastritis (Chronic) Idiopathic peripheral neuropathy (Acute) Idiopathic peripheral autonomic neuropathy (Acute) Memory loss (Acute) Abrasion of face (Acute) Facial contusion (Acute) 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 (Acute) Conductive hearing loss, external ear (Acute) Sensorineural hearing loss of both ears (Acute) Dysphagia (Acute) Dyspnea on exertion (Acute) Orthostatic hypotension (Acute) Medical History Allergic rhinitis Bilateral leg pain Bilateral leg weakness Cold feet Dementia mild Dizziness Fatigue Frequent PVCs Gastritis Hearing loss Hives Hx of bronchitis Hx of migraines Iliotibial band friction syndrome of both knees Ingrown toenail Insect bite Knee joint pain Lung nodule Migraine Myalgia Nail abnormality Obstructive sleep apnea Onychomycosis Osteoporosis Pain in left shoulder Palpitations Pelvic floor instability Peripheral neuropathy Raynauds syndrome Tubular adenoma Surgical History H/O foot surgery r foot surgerly H/O knee surgery L knee surgery-patella History of colonoscopy Hx of tonsillectomy Family History Mother , age 86 from dementia with hallucinations ? lewy body Dementia Father , age 89 from prostate cancer and malnutrition Prostate cancer Malnutrition Sister , age 80 from dementia, unspecified type Dementia Daughter No problems noted. Son No problems noted. 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 Do you think of yourself as: straight/heterosexual Current gender identity: female What is your relationship status?: How often do you talk on the phone with friends or family?: three or more times per week How often do you get together with friends or relatives?: three or more times per week Panel score (0-1 are the most socially isolated patients): 2 What type of physical activity do you participate in: walking Duration: < 15 minutes/day Frequency: does not exercise Special antoinette needs: No Seatbelt use: always Do you feel safe at home: Yes Do you feel safe in your relationship?: Yes Exam <CHINO Finch - Last Filed: 03/07/22 23:20> Const General: cooperative and frail appearing Orientation: alert and oriented x3 Eyes Pupils: PERRL Resp Effort & Inspection: normal respiratory effort Auscultation: clear to auscultation bilaterally Cardio Rate: bradycardic Rhythm: regular rhythm GI Inspection: normal to inspection Skin General skin exam: no rashes or lesions noted Neuro General: patient alert, patient oriented x3 and CN's II-XI intact bilaterally Cranial Nerves: PERRL and tongue midline Speech: speech normal Motor: strength 5/5 throughout and no pronator drift Sensory Exam: no sensory deficits noted Coordination: [id number] test normal and [id number] test normal Extrem General: normal to inspection Other: non-tender, distal pulses intact Course <CHINO Finch - Last Filed: 03/07/22 23:20> Vital Signs Vital signs: Vital Signs Temperature 36.8 C 03/06/22 20:22 Pulse 56 L 03/06/22 20:22 Respiratory Rate 13 03/06/22 20:22 Blood Pressure 134/70 03/06/22 20:22 Pulse Oximetry 99 03/06/22 20:22 Temperature 36.8 C 03/06/22 20:22 Temperature Source Skin 03/06/22 20:22 Pulse 53 L 03/06/22 22:18 Pulse 53 L 03/06/22 22:20 Respiratory Rate 14 03/06/22 22:20 Respiratory Effort 03/06/22 20:30 Respiratory Depth Normal 03/06/22 20:30 Respiratory Pattern Normal 03/06/22 20:30 Blood Pressure 141/81 H 03/06/22 22:18 Blood Pressure Mean 93 03/06/22 22:18 Blood Pressure Position Supine 03/06/22 20:22 Pulse Oximetry 96 03/06/22 22:20 Oxygen Delivery Method Room Air 03/06/22 20:22 Oxygen Flow Rate 0 03/06/22 20:22 Pain Level 0 03/06/22 20:22 Lab/Test Results Lab/Test Results: Laboratory Tests Range/Units 03/06/22 03/06/22 03/06/22 07:09 07:09 21:27 WBC (4.4-10.8) 10^3/uL RBC (3.93-5.22) 10^6/uL Hgb (11.2-15.7) g/dL Hct (36.0-46.0) % MCV (80-95) fL MCH (27.0-33.0) pg MCHC (32.0-36.0) % RDW (11.7-14.6) % Plt Count (130-400) 10^3/uL MPV (8.0-11.0) fL Immature Gran % Neutrophils % Lymphocytes % Monocytes % Eosinophils % Basophils % Nucleated RBC % (0.0-0.3) % Absolute Neutrophils (1.2-6.7) 10^3/uL Absolute Lymphocytes (1.2-3.4) 10^3/uL Absolute Monocytes (0.1-0.8) 10^3/uL Absolute Eosinophils (0.0-0.7) 10^3/uL Absolute Basophils (0.0-0.2) 10^3/uL Sodium (136-145) mmol/L 138 Potassium (3.5-5.1) mmol/L 4.0 Chloride (98-107) mmol/L 102 Carbon Dioxide (21.0-32.0) mmol/L 30.5 Anion Gap (3-11) mmol/L 5.5 BUN (7-18) mg/dL 23 H Creatinine (0.55-1.02) mg/dL 0.8 Estimated GFR/1.73 m2 (mL/min/1.73m2) >= 60.00 Glucose (74-106) mg/dL 107 H Calcium (8.5-10.1) mg/dL 8.8 Magnesium (1.8-2.4) mg/dL 2.3 Total Bilirubin (0.2-1.0) mg/dL 0.3 AST (15-37) U/L 24 ALT (14-59) U/L 30 Alkaline Phosphatase (46-116) U/L 50 Troponin I (<or=60) ng/L < 50 Total Protein (6.4-8.2) g/dL 7.2 Albumin (3.4-5.0) g/dL 3.5 TSH (0.36-3.74) uIU/mL 2.04 Urine Color (Yellow) Yellow Urine Clarity (Clear) Clear Urine pH (5-8) 7.0 Ur Specific [place] (1.005-1.025) 1.020 Urine Protein (Negative) mg/dL Negative Urine Ketones (Negative) mg/dL Negative Urine Blood (Negative) Negative Urine Nitrite (Negative) Negative Urine Bilirubin (Negative) Negative Urine Urobilinogen (Up TO 0.2) EU/dL 0.2 Ur Leukocyte Esterase (Negative) Negative Urine Glucose (Negative) mg/dL Negative Range/Units 03/06/22 21:27 WBC (4.4-10.8) 10^3/uL 5.56 RBC (3.93-5.22) 10^6/uL 4.68 Hgb (11.2-15.7) g/dL 14.1 Hct (36.0-46.0) % 41.1 MCV (80-95) fL 88 MCH (27.0-33.0) pg 30.1 MCHC (32.0-36.0) % 34.3 RDW (11.7-14.6) % 12.1 Plt Count (130-400) 10^3/uL 150 MPV (8.0-11.0) fL 9.3 Immature Gran % 0.4 Neutrophils % 45.3 Lymphocytes % 39.0 Monocytes % 9.2 Eosinophils % 5.4 Basophils % 0.7 Nucleated RBC % (0.0-0.3) % 0.0 Absolute Neutrophils (1.2-6.7) 10^3/uL 2.52 Absolute Lymphocytes (1.2-3.4) 10^3/uL 2.17 Absolute Monocytes (0.1-0.8) 10^3/uL 0.51 Absolute Eosinophils (0.0-0.7) 10^3/uL 0.30 Absolute Basophils (0.0-0.2) 10^3/uL 0.04 Sodium (136-145) mmol/L Potassium (3.5-5.1) mmol/L Chloride (98-107) mmol/L Carbon Dioxide (21.0-32.0) mmol/L Anion Gap (3-11) mmol/L BUN (7-18) mg/dL Creatinine (0.55-1.02) mg/dL Estimated GFR/1.73 m2 (mL/min/1.73m2) Glucose (74-106) mg/dL Calcium (8.5-10.1) mg/dL Magnesium (1.8-2.4) mg/dL Total Bilirubin (0.2-1.0) mg/dL AST (15-37) U/L ALT (14-59) U/L Alkaline Phosphatase (46-116) U/L Troponin I (<or=60) ng/L Total Protein (6.4-8.2) g/dL Albumin (3.4-5.0) g/dL TSH (0.36-3.74) uIU/mL Urine Color (Yellow) Urine Clarity (Clear) Urine pH (5-8) Ur Specific [place] (1.005-1.025) Urine Protein (Negative) mg/dL Urine Ketones (Negative) mg/dL Urine Blood (Negative) Urine Nitrite (Negative) Urine Bilirubin (Negative) Urine Urobilinogen (Up TO 0.2) EU/dL Ur Leukocyte Esterase (Negative) Urine Glucose (Negative) mg/dL Sign Out <CHINO Finch - Last Filed: 03/07/22 23:20> Sign Out Data: Sign Out Comment: pending cta head, neck, chest /admission Last updated by Annabella Saleh PA at 03/06/22 23:17
[2022-03-06 23:08] LABS: Source Nasal/Nares
--- NOTE | 2022-03-06 23:58 | DI.VRAD_ITS ---
PROCEDURE INFORMATION: Exam: CTA Head With Contrast, Arteriography Exam date and time: 03/06/2022 23:14 Age: 81 years old Clinical indication: Stroke-like symptoms; Dizziness/giddiness TECHNIQUE: Imaging protocol: Computed tomographic angiography of the head with contrast. Exam focused on the arteries. 3D rendering (Not supervised by radiologist): MIP and/or 3D reconstructed images were created by the technologist. Radiation optimization: All CT scans at this facility use at least one of these dose optimization techniques: automated exposure control; mA and/or kV adjustment per patient size (includes targeted exams where dose is matched to clinical indication); or iterative reconstruction. Contrast material: OMNI 350; Contrast volume: 65 ml; Contrast route: INTRAVENOUS (IV); COMPARISON: CT HEAD WO 03/06/2022 21:52 FINDINGS: ANTERIOR CIRCULATION: Right internal carotid artery: Intracranial segment is patent with no significant stenosis. No aneurysm. Right middle cerebral artery: No occlusion or significant stenosis. No aneurysm. Right anterior cerebral artery: No occlusion or significant stenosis. No aneurysm. Left internal carotid artery: Intracranial segment is patent with no significant stenosis. No aneurysm. Left middle cerebral artery: No occlusion or significant stenosis. No aneurysm. Left anterior cerebral artery: No occlusion or significant stenosis. No aneurysm. POSTERIOR CIRCULATION: Right vertebral artery: No occlusion or significant stenosis. No aneurysm. Left vertebral artery: No occlusion or significant stenosis. No aneurysm. Basilar artery: No occlusion or significant stenosis. No aneurysm. Right posterior cerebral artery: No occlusion or significant stenosis. No aneurysm. Left posterior cerebral artery: No occlusion or significant stenosis. No aneurysm. Brain: No mass, mass effect, or midline shift. Cerebral ventricles: No ventriculomegaly. Bones/joints: No acute fracture. Soft tissues: Unremarkable. IMPRESSION: No acute arterial pathology. Patent nikolski of [place]. PROCEDURE INFORMATION: Exam: CTA Neck With Contrast Exam date and time: 03/06/2022 23:14 Age: 81 years old Clinical indication: Stroke-like symptoms; Dizziness/giddiness TECHNIQUE: Imaging protocol: Computed tomographic angiography of the neck with contrast. 3D rendering (Not supervised by radiologist): MIP and/or 3D reconstructed images were created by the technologist. Radiation optimization: All CT scans at this facility use at least one of these dose optimization techniques: automated exposure control; mA and/or kV adjustment per patient size (includes targeted exams where dose is matched to clinical indication); or iterative reconstruction. Contrast material: OMNI 350; Contrast volume: 65 ml; Contrast route: INTRAVENOUS (IV); COMPARISON: CT HEAD CERV SPINE FACIAL WO 08/26/2019 16:10 FINDINGS: Right common carotid artery: No significant stenosis. No dissection or occlusion. Right internal carotid artery: Extracranial segment is patent with no significant stenosis. No dissection or occlusion. Right external carotid artery: No occlusion or significant stenosis. Left common carotid artery: No significant stenosis. No dissection or occlusion. Left internal carotid artery: Extracranial segment is patent with no significant stenosis. No dissection or occlusion. Left external carotid artery: No occlusion or significant stenosis. Right vertebral artery: No significant stenosis. No dissection or occlusion. Left vertebral artery: No significant stenosis. No dissection or occlusion. Soft tissues: No significant soft tissue swelling. Bones/joints: No acute fracture. IMPRESSION: No acute arterial pathology. Patent carotid and vertebral system bilaterally. Dictated and Authenticated by: Jeana Abreu MD. Ordering:YOSELYN Winchester MD
[2022-03-07] VITALS (30 sets, daily range): BP systolic 93–160; BP diastolic 58–105; PULSE 50–79; RESP 12–30; TEMP 35.6–37.3; O2SAT 93–100
[2022-03-07] MEDS: LORazepam 0.5 MG TAB PO (00:05)
[2022-03-07 00:13] LABS: COVID-19 PCR Negative (Negative)
--- NOTE | 2022-03-07 00:25 | DI.VRAD_ITS ---
PROCEDURE INFORMATION: Exam: CTA Chest With Contrast Exam date and time: 03/06/2022 23:40 Age: 81 years old Clinical indication: Other: Exclude pe TECHNIQUE: Imaging protocol: Computed tomographic angiography of the chest with contrast. 3D rendering (Not supervised by radiologist): MIP and/or 3D reconstructed images were created by the technologist. Contrast material: OMNI 350; Contrast volume: 85 ml; Contrast route: INTRAVENOUS (IV); COMPARISON: CT CHEST PE CTA 06/08/2020 17:17 FINDINGS: Pulmonary arteries: No pulmonary emboli. Aorta: No aortic aneurysm. No aortic dissection. Lungs: Scattered microatelectasis. No consolidation. No pneumonia or pulmonary infarct. Pleural spaces: Trace right greater than left pleural fluid is similar. No pneumothorax. Heart: No cardiomegaly. No pericardial effusion. Lymph nodes: No enlarged lymph nodes. Bones/joints: Chronic healed right rib deformities. Chronic moderate loss of height at T11. T12 loss of height previously seen not imaged on today's study. No acute fracture or subluxation. Soft tissues: No suspicious lesions. IMPRESSION: 1. No acute findings. 2. No pulmonary emboli are seen. 3. Trace right greater than left pleural fluid is similar. 4. Incidental findings as described. Dictated and Authenticated by: Jeana Abreu MD. Ordering:YOSELYN Winchester MD
--- OUTSIDE RECORDS SUMMARY | 2022-03-07 01:38 | XMS_ITS | Encounter Summary ---
:1940 [place] [address] Care Team Providers Name Role Phone Shawna Couch MD Primary Care Provider Encounter Details Date Type Department Care Team Description 12/03/2020 Telephone Pulmonology at [facility] [place] [address] Social History Tobacco Use Types Packs/Day Years Used Date Never Smoker Smokeless Tobacco: Never Used Alcohol Use Standard Drinks/Week Comments No 0 (1 standard drink = 0.6 oz pure alcoho l) Sex Assigned at Date Recorded Not on file documented as of this encounter Plan of Treatment Not on filedocumented as of this encounter Visit Diagnoses Not on filedocumented in this encounter Care Teams Digital Content Marketing Manager Relationship Specialty Start Date End Date Shawna Couch MD PCP - General Family Medicine 02/16/17 [address] [place] [address] documented as of this encounter
--- OUTSIDE RECORDS SUMMARY | 2022-03-07 01:38 | XMS_ITS | Encounter Summary ---
:1940 Author Organization [facility] [place] [address] Care Team Providers Name Role Phone Shawna Couch MD Primary Care Provider Encounter Details Date Type Department Care Team Description 11/26/2020 Telephone Gastroenterology at [facility] [place] [address] Social History Tobacco Use Types Packs/Day Years Used Date Never Smoker Smokeless Tobacco: Never Used Alcohol Use Standard Drinks/Week Comments No 0 (1 standard drink = 0.6 oz pure alcoho l) Sex Assigned at Date Recorded Not on file documented as of this encounter Miscellaneous Notes Telephone Encounter - Sunni Pringle - 11/26/2020 11:15 AM EDT ESOPHAGEAL MANOMETRY CLINICAL SAFETY CHECKLIST 11/26/2020 Sunni Tysonkerri Peoples [address] [place] [address] [id number] : 1940 REFERRING PROVIDER: RICKIE ANN V [[id number]] PRIMARY CARE PROVIDER: Shawna Couch MD PRIMARY SYMPTOM (PROCEDURE INDICATION): dysphagia/difficulty swallowing SAFETY QUESTIONS HISTORY OF TRANSSPHENOIDAL OR PITUITARY SURGERY? no IF YES, please inform the patient that the test cannot be scheduled due to safety concerns about testing, and the patient should speak with their provider to consider alternative testing. The schedulershould also contact the provider's office directly to notify them that we are unable to schedule dueto a contraindication to testing. Then, delete the remainder of this checklist and close out the referral. HISTORY OF NASAL SURGERY IN THE LAST SIX MONTHS? no IF YES: PT CANNOT BE SCHEDULED DUE TO SAFETY CONCERNS until we receive documented clearance by theirENT provider. Then, delete the remainder of this checklist and close out the referral. QUESTIONS FOR THE PATIENT DIABETIC? no Diabetic patients should speak with their PCP or managing provider at least two weeks before the test to ask what medication or insulin adjustments are needed for testing. If the patient feels ill while fasting due to diabetes, it is OK to have a little apple juice - just enough to feel better. Patients fast 8 hours before testing and the test lasts 1 hour. ALLERGIC TO LIDOCAINE, BENZOCAINE? no (OK to schedule procedure but please document type of allergy if present) BLOOD THINNERS SUCH PLAVIX, COUMADIN, PRADAXA? Yes (pt does not have to stop any blood thinners for this procedure) DOES THE PATIENT USE A WHEELCHAIR? no VERBAL PATIENT INSTRUCTIONS The written instructions are very important for the patient to review and contain specific dietary and medication instructions prior to testing. These instructions will give the patient the most accurate test result. The patient should speak with their referring provider or our office if they have any questions. APPOINTMENT NOTES TEMPLATE HREM, symptom: dysphagia/difficulty swallowing, RMD: RICKIE ANN V [[id number]], PCP: Shawna Couch MD, wheelchair: No, blood thinners: No, allergy to lidocaine/benzocaine/novocaine: No (At exit, the RMD for appointment notes is the GI provider who saw the patient) documented in this encounter Plan of Treatment Not on filedocumented as of this encounter Visit Diagnoses Not on filedocumented in this encounter Care Teams Flow Manager Relationship Specialty Start Date End Date Shawna Couch MD PCP - General Family Medicine 02/16/17 [address] [place] [address] documented as of this encounter
--- OUTSIDE RECORDS SUMMARY | 2022-03-07 01:38 | XMS_ITS | Encounter Summary ---
:1940 Author Organization [facility] [place] [address] Care Team Providers Name Role Phone Shawna Couch MD Primary Care Provider Reason for Visit Reason Onset Date Comments Oxygen Dependence 12/24/2020 Overnight pulse oxim etry Encounter Details Date Type Department Care Team Description 12/24/2020 Telephone Pulmonology at [facility] Da Oxygen Dependence [facility] Leslie Conn ([place] [address] S, RN oximetry) [phone] Social History Tobacco Use Types Packs/Day Years Used Date Never Smoker Smokeless Tobacco: Never Used Alcohol Use Standard Drinks/Week Comments No 0 (1 standard drink = 0.6 oz pure alcoho l) Sex Assigned at Date Recorded Not on file documented as of this encounter Miscellaneous Notes Telephone Encounter - Fabien Roberson RN - 12/24/2020 4:34 PM EDT RN was notified that patient was in need of assistance with Overnight Pulse Oximetry testing. RN reached out to [facility] and confirmed order had been received. RN was also notifiedthat patient will be scheduled by end of the week, due to limited equipment and high demand. RN called and updated patient, and gave contact number for [facility] office. Patient denied any other needs at this time. documented in this encounter Plan of Treatment Not on filedocumented as of this encounter Visit Diagnoses Not on filedocumented in this encounter Care Teams Shop And Alteration Tailor Relationship Specialty Start Date End Date Shawna Couch MD PCP - General Family Medicine 02/16/17 [address] [place] [address] documented as of this encounter
--- OUTSIDE RECORDS SUMMARY | 2022-03-07 01:38 | XMS_ITS | Encounter Summary ---
:1940 [place] [address] Care Team Providers Name Role Phone Shawna Couch MD Primary Care Provider Encounter Details Date Type Department Care Team Description 12/07/2020 Telephone Pulmonology at [facility] [place] [address] Social History Tobacco Use Types Packs/Day [...] on filedocumented in this encounter Care Teams Stacker Tender Relationship Specialty Start Date End Date Shawna Cuoch MD PCP - General Family Medicine 02/16/17 [address] [place] [address] documented as of this encounter
--- OUTSIDE RECORDS SUMMARY | 2022-03-07 01:38 | XMS_ITS | Encounter Summary ---
:1940 Author Organization [facility] [place] [address] Care Team Providers Name Role Phone Shawna Couch MD Primary Care Provider Encounter Details Date Type Department Care Team Description 06/17/2021 Hospital Encounter XRay at [facility] Buddy Stoner MD Dysphagia, [address] [facility] [address] [facility] Medical unspecified [place] Center [address] [place], [place] [phone] [id number] Social History Tobacco Use Types Packs/Day Years Used Date Never Smoker Smokeless Tobacco: Never Used Alcohol Use Standard Drinks/Week Comments No 0 (1 standard drink = 0.6 oz pure alcoho l) Sex Assigned at Date Recorded Not on file documented as of this encounter Medications at Time of Discharge Medication Sig Dispensed Refills Start Date End Date albuteroL 90 mcg/actuation Every 6 hours, as 0 HFA Aerosol Inhaler needed PRN cyanocobalamin/folic acid Daily 0 08/20/2017 (Vitamin M14-Aneky Acid) 500-400 mcg Tablet estradioL (ESTRACE) 0.01 % 0 1 (0.1 mg/gram) Cream gabapentin (Neurontin) 300 0 1 mg Capsule mirtazapine (Remeron) 15 1 tablet. 0 08/02/2017 mg Tablet omega 9-igh-ajt-fish oil Take by mouth daily. 0 600 mg-216 mg- 324 mg-1,200 mg Capsule, Delayed Release(E.C.) cholecalciferol, Vitamin Take by mouth daily. 0 D3, 1,000 unit Capsule cyanocobalamin 1,000 mcg Take 1,000 mcg by 0 Tablet mouth daily. CALCIUM CARBONATE (CALCIUM Take 1,000 mg by 0 500 ORAL) mouth. LORazepam (ATIVAN) 1 mg Take 1 mg by mouth 0 Tablet every 6 hours as needed for Anxiety. EPINEPHrine 0.3 mg/0.3 mL use as directed by 0 Auto-Injector prescriber aspirin 81 mg Tablet, Take 81 mg by mouth 0 Delayed Release (E.C.) every other day. fish oil-omega-3 fatty Take 2 g by mouth 0 acids 1,000 mg Capsule daily. Simethicone 125 mg Capsule Take by mouth daily. 0 magnesium 250 mg Tablet Take by mouth daily. 0 MULTIVIT WITH Take by mouth daily. 0 CALCIUM,IRON,MIN (WOMEN'S DAILY MULTIVITAMIN ORAL) ranitidine (ZANTAC) 150 mg Take 1 tablet by 60 tablet 11 02/2017 Tablet mouth 2 times daily. rOPINIRole (REQUIP) 0.25 0.5 mg nightly. 0 2016 mg Tablet mirtazapine (REMERON) 15 Take 1 tablet by 90 tablet 3 01/29 mg Tablet mouth nightly. rivastigmine (EXELON) 4.6 1 patch on skin every 90 patch 1 01/06/2016 mg/24 hr Patch 24 other day hrIndications: Mild cognitive impairment alendronate (FOSAMAX) 70 Take 70 mg by mouth 0 mg tablet every 7 days. Take in the morning with a full glass of water, on an empty stomach, and do not take anything else by mouth or lie down for the next 30 min. documented as of this encounter Plan of Treatment Scheduled Orders Name Type Priority Associated Diagnoses Order S chedule XR Fluoro Barium Imaging Routine Dysphagia, unspecified 1 Occurrences starting Swallow (5 Minute type 06/17/2021 until Timed) 06/17/2021 XR Fluoro Barium Imaging Routine Dysphagia, unspecified 1 Occurrences starting Swallow (Double type 06/17/2021 u ntil Contrast) 06/17/2021 documented as of this encounter Procedures Procedure Name Priority Date/Time Associated Diagnosis Comme nts XR FLUORO BARIUM Routine 06/17/2021 9:38 AM Dysphagia, Resul ts for this SWALLOW EST unspecified type procedure a re in (MODIFIED/VIDEO the results SWALLOW PHARYNX) section. documented in this encounter Results XR Fluoro Barium Swallow (Modified/Video Swallow Pharynx) (06/17/2021 9:38 AM EST) Anatomical Region Laterality Modality N/A Radio Fluoroscopy Specimen (Source) Anatomical Location Collection Method / Collectio n Time Received Time / Laterality Volume Impressions 06/17/2021 11:34 AM EST 1. ??Flash penetration with thin and regular solid consistencies. 2. ??Residual contrast within the upper esophagus, if clinical concerns persist would recommend barium swallow to better evaluate esophageal motility. Please see speech-language pathologist's note for further detail. I have personally reviewed the image(s) and the resident's interpretation and agree with the findings, Janet Sanchez MD at 06/17/2021 11:34 AM Thank you for letting us participate in the care of this patient. ??If you are a health care provider and have any questi ons regarding this report, please contact the number below. ??For patients who have questions please contact the health resident care spec that requested your imaging first. ? Electronically signed by: Vinh Laguna, [facility] ([phone]), at 06/17/2021 11:34 AM Narrative 06/17/2021 11:34 AM EST EXAMINATION: XR FLUORO BARIUM SWALLOW (MODIFIED/VIDEO SWALLOW PHARYNX) CLINICAL HISTORY: Dysphagia in the setti ng of dementia, concern for oropharyngeal dysphagia (as entered by o rdering provider in the order requisition) TECHNIQUE: The examination was performed in conjunc tion with speech pathology. ??Varying consistencies of barium were administere d under lateral fluoroscopic observation. A 13 mm barium tablet was a dministered. Fluoro time: 1.52 minutes COMPARISON: Abdominal radiograph dated FINDINGS: There is discordant oral phase of swallo wing with pooling within the lateral recesses of the oral cavity. There is de lay of the swallowing reflex with consistent triggering at the piriform si nuses. There is normal elevation of the larynx and normal epiglottic inversion with swallowing. Flash penetration of thin liquids and re gular solids without aspiration. No penetration or aspiration with pudding t hick liquids or soft solids. The barium tablet is not well-visualized since it w as administered with thin barium that obscures the tablet. No residual pooling within the vallecula e or piriform sinuses but there is residual contrast seen in the upper esop hagus throughout exam that is not cleared with subsequent swallows. Procedure Note Janet Sanchez MD - 06/17/2021Formattin g of this note might be different from the original. EXAMINATION: XR FLUORO BARIUM SWALLOW (M ODIFIED/VIDEO SWALLOW PHARYNX) CLINICAL HISTORY: Dysphagia in the setti ng of dementia, concern for oropharyngeal dysphagia (as entered by o ering provider in the order requisition) TECHNIQUE: The examination was performed in conjunc tion with speech pathology. Varying consistencies of barium were administere d under lateral fluoroscopic observation. A 13 mm barium tablet was a dministered. Fluoro time: 1.52 minutes COMPARISON: Abdominal radiograph dated FINDINGS: There is discordant oral phase of swallo wing with pooling within the lateral recesses of the oral cavity. There is de lay of the swallowing reflex with consistent triggering at the piriform si nuses. There is normal elevation of the larynx and normal epiglottic inversion with swallowing. Flash penetration of thin liquids and re gular solids without aspiration. No penetration or aspiration with pudding t hick liquids or soft solids. The barium tablet is not well-visualized since it w as administered with thin barium that obscures the tablet. No residual pooling within the vallecula e or piriform sinuses but there is residual contrast seen in the upper esop hagus throughout exam that is not cleared with subsequent swallows. IMPRESSION 1. Flash penetration with thin and regul ar solid consistencies. 2. Residual contrast within the upper es ophagus, if clinical concerns persist would recommend barium swallow to better evaluate esophageal motility. Please see speech-language pathologist's note for further detail. I have personally reviewed the image(s) and the resident's interpretation and agree with the findings, Janet Sanchez MD at 06/17/2021 11:34 AM Thank you for letting us participate in the care of this patient. If you are a health care provider and have any questi ons regarding this report, please contact the number below. For patients w ho have questions please contact the health resident care spec that requested your imaging first. Electronically signed by: Vinh Laguna, [facility] ([phone]), at 06/17/2021 11:34 AM Buddy Stoner MD IMG FLUORO ORDERABLES documented in this encounter Visit Diagnoses Diagnosis Dysphagia, unspecified type documented in this encounter Care Teams Powerhouse Mechanic Helper Relationship Specialty Start Date End Date Shawna Couch MD PCP - General Family Medicine 02/16/17 [address] [place] [address] documented as of this encounter
--- OUTSIDE RECORDS SUMMARY | 2022-03-07 01:38 | XMS_ITS | Encounter Summary ---
:1940 Author Organization [facility] [place] [address] Care Team Providers Name Role Phone Shawna Couch MD Primary Care Provider Reason for Visit Reason Comments Medication Refill Encounter Details Date Type Department Care Team Description 02/10/2018 Refill Psychiatry and Behavioral Carole Milan MD [facility] [place] [address] [place] [address] [phone] (Wo rk) Social History Tobacco Use Types Packs/Day Years [...] on filedocumented in this encounter Care Teams Outbound Call Center Representative Relationship Specialty Start Date End Date Shawna Couch MD PCP - General Family Medicine 02/16/17 [address] [place] [address] documented as of this encounter
--- OUTSIDE RECORDS SUMMARY | 2022-03-07 01:38 | XMS_ITS | Encounter Summary ---
:1940 Author Organization [facility] [place] [address] Care Team Providers Name Role Phone Shawna Couch MD Primary Care Provider Reason for Visit Reason Comments Medication Refill Encounter Details Date Type Department Care Team Description 10/12/2018 Refill [place] [facility] Randa Rodriguez MD [facility] [place] [address] ALLERGY DEPT [phone] [place], [place] [address] (Wo rk) Social History Tobacco Use Types [...] on filedocumented in this encounter Care Teams Motorized Squad Lieutenant Relationship Specialty Start Date End Date Shawna Couch MD PCP - General Family Medicine 02/16/17 [address] [place] [address] documented as of this encounter
--- OUTSIDE RECORDS SUMMARY | 2022-03-07 01:38 | XMS_ITS | Encounter Summary ---
:1940 Author Organization [facility] [place] [address] Care Team Providers Name Role Phone Shawna Couch MD Primary Care Provider Encounter Details Date Type Department Care Team Description 09/03/2021 TH Visit Pulmonology at [facility] Darrick Haider RENY on CPAP; (TeleHealth) [facility] MD Gretta COLBERT (dyspnea on exertion); [facility] peripheral neurop athy; [place], [place] CENTER Restless legs syndrome; [id number] PULMONARY Mild cognitive impairment [phone] [place], [place] [address] Social History Tobacco Use Types Packs/Day Years Used Date Never Smoker Smokeless Tobacco: Never Used Alcohol Use Standard Drinks/Week Comments No 0 (1 standard drink = 0.6 oz pure alcoho l) Sex Assigned at Date Recorded Not on file documented as of this encounter Progress Notes Darrick Haider MD - 09/03/2021 8:00 AM EST Images from the original note were not included. SECTION OF PULMONARY AND CRITICAL CARE?? Pulmonary [place] [address] Telehealth follow-up Follow-up 81-year-old woman who I initially saw by telehealth (telephone) for mild to moderate dyspnea which is come on over the past 6 to 9 months, occasionally associated with wheezing, without cough. She had a cardiac stress test, and echocardiogram, pulmonary function studies, and she is convinced that her respiratory status declined dramatically from the time of her PFTs. Similarly her fatiguedramatically worsened at the same point in time. She was seen in the ED at , and nothing was found. She has obstructive sleep apnea and is on CPAP every night (settings from 2010), and she stated that she wakes up tired every morning. She did not endorse daytime somnolence. She had no constitutionalsymptoms, though she does have a history of anxiety, depression, dementia, and is on multiple psychoactive medications. Her pulmonary function studies which apparently triggered the decline were largely normal, with a slight decrement in diffusing capacity. She had an echocardiogram which was unremarkable, without evidence of PAH (RVSP of 28). Stress test she had in the fall was unrevealing, and subsequent labs more recently were been unrevealing. She has peripheral neuropathy and restless leg syndrome, and takes 600 mg of gabapentin nightly. She also takes mirtazapine 15 mg in the morning, and states that she was originally instructed to take it in the evening but she believes it kept her up at night. She had been on Aricept in the past, but apparently had some reaction to it. She has never smoked. I had indicated the last time we spoke that it would be difficult to make any further progress in isolating her problem without an in person visit, so I am somewhat surprised to see her on the scheduleas a telehealth follow-up. Nevertheless on follow-up today she indicates that her respiratory issues have largely resolved, though she remains curious as to what might have been the underpinnings. PAST MEDICAL HISTORY: Patient Active Problem List Diagnosis Code ??? Mild cognitive impairment G31.84 ??? Anxiety disorder F41.9 ??? Mood disorder F39 ??? Dysphagia R13.10 ??? Dyspnea on exertion R06.00 ??? 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 Idiopathic peripheral neuropathy G60.9 ??? Memory loss R41.3 ??? Mild chronic gastritis K29.50 ??? Orthostatic hypotension I95.1 ??? Restless legs syndrome G25.81 ??? 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 CATARACT REMOVAL ??? SECTION ??? DILATION AND CURETTAGE OF UTERUS ??? TUBAL LIGATION MEDICATIONS: Current Outpatient Medications Medication Sig Dispense Refill ??? albuteroL 90 mcg/actuation HFA Aerosol Inhaler Every 6 hours, as needed PRN ??? cyanocobalamin/folic acid (Vitamin L02-Hczcn Acid) 500-400 mcg Tablet Daily ??? estradioL (ESTRACE) 0.01 % (0.1 mg/gram) Cream ??? gabapentin (Neurontin) 300 mg Capsule ??? mirtazapine (Remeron) 15 mg Tablet 1 tablet. ??? omega 5-jvc-zml-fish oil 600 mg-216 mg- 324 mg-1,200 mg Capsule, Delayed Release(E.C.) Take by mouth daily. ??? cholecalciferol, Vitamin D3, 1,000 unit Capsule Take by mouth daily. ??? cyanocobalamin 1,000 mcg Tablet Take 1,000 mcg by mouth daily. ??? CALCIUM CARBONATE (CALCIUM 500 ORAL) Take 1,000 mg by mouth. ??? LORazepam (ATIVAN) 1 mg Tablet Take 1 mg by mouth every 6 hours as needed for Anxiety. ??? EPINEPHrine 0.3 mg/0.3 mL Auto-Injector use as directed by prescriber 0 ??? aspirin 81 mg Tablet, Delayed Release (E.C.) Take 81 mg by mouth every other day. ??? fish oil-omega-3 fatty acids 1,000 mg Capsule Take 2 g by mouth daily. ??? Simethicone (GAS-X) 125 mg Capsule Take by mouth daily. ??? magnesium 250 mg Tablet Take by mouth daily. ??? MULTIVIT WITH CALCIUM,IRON,MIN (WOMEN'S DAILY MULTIVITAMIN ORAL) Take by mouth daily. ??? ranitidine (ZANTAC) 150 mg Tablet Take 1 tablet by mouth 2 times daily. 60 tablet 11 ??? rOPINIRole (REQUIP) 0.25 mg Tablet 0.5 mg nightly. ??? mirtazapine (REMERON) 15 mg Tablet Take 1 tablet by mouth nightly. 90 tablet 3 ??? rivastigmine (EXELON) 4.6 mg/24 hr Patch 24 hr 1 patch on skin every other day 90 patch 1 ??? alendronate (FOSAMAX) 70 mg tablet Take 70 mg by mouth every 7 days. Take in the morning with a full glass of water, on an empty stomach, and do not take anything else by mouth or lie down for the next 30 min. No current facility-administered medications for this visit. ALLERGIES: Aricept [donepezil], Hydroxyzine, Sertraline, Donepezil hcl, and Exelon [rivastigmine tartrate] FAMILY HISTORY: Family History Problem Relation Age of Onset ??? Dementia Mother ??? Allergic Rhinitis Other ??? Asthma Other ??? Urticaria Neg Hx ??? Angioedema Neg Hx PHYSICAL EXAM-deferred Most Recent Chest Radiograph was reviewed by me: Results for orders placed during the hospital encounter of 12/02/20 XR Chest One View Narrative EXAMINATION: XR CHEST ONE VIEW CLINICAL HISTORY: shortness of breath TECHNIQUE: 1 view of the chest AP portable semiupright. COMPARISON: None FINDINGS: A loop recorder projects over the mid left hemithorax. No focal lung consolidation. Minimal streaky opacity at the left lung base consistent with atelectasis. There is mild prominence/congestion of the pulmonary vasculature. The cardiac silhouette is within normal limits. No pneumothorax or pleural effusion. Impression No acute cardiopulmonary pathology. Thank you for letting us participate in the care of this patient. If you are a health care provider and have any questions regarding this report, please contact the number below. For patients who have questions please contact the health pulmonary care nurse that requested your imaging first. Pulmonary function studies: Normal spirometry, a total lung capacity of 86% predicted (without air trapping). Diffusing capacity of 66% pred. IMPRESSION: In summary, this is a 81 y.o. female with a rather curious history of gradual onset of dyspnea and fatigue/exhaustion, both of which appear to have intensified significantly just since her pulmonary function studies. She has a history of obstructive sleep apnea and the possibility that herCPAP settings were out of date was evaluated by an overnight oximetry while using the CPAP, and thisshowed no significant desaturation. As I discussed with her I do not have a good explanation for whyaldair had the respiratory symptoms, and suggested that if they should recur I would like to see her inperson in the clinic for a full examination. She is inclined to hold off, and should her symptoms return she will call for an in person clinic appointment. Telehealth visit: 20 minutes. documented in this encounter Plan of Treatment Not on filedocumented as of this encounter Visit Diagnoses Diagnosis RENY on CPAP Obstructive sleep apnea (adult) (pediatr ic) COLBERT (dyspnea on exertion) Other dyspnea and respiratory abnormalit y Idiopathic peripheral neuropathy Unspecified hereditary and idiopathic pe ripheral neuropathy Restless legs syndrome Restless legs syndrome (RLS) Mild cognitive impairment Mild cognitive impairment, so stated documented in this encounter Care Teams Pit Shovel Operator Relationship Specialty Start Date End Date Shawna Couch MD PCP - General Family Medicine 02/16/17 [address] [place] [address] documented as of this encounter
--- OUTSIDE RECORDS SUMMARY | 2022-03-07 01:38 | XMS_ITS | Encounter Summary ---
:1940 Author Organization [place] [address] Care Team Providers Name Role Phone Shawna Couch MD Primary Care Provider Reason for Visit Reason Onset Date Comments Results 01/21/2021 Overnight Pulse Oxim etrty Oxygen Dependence 01/21/2021 Encounter Details Date Type Department Care Team Description 01/21/2021 Telephone [place]ology [place] [facility] [place], Carlie (Overnight [facility] Leslie Conn Pulse Oximetrty); [place] [address] VICENTE Cavanaugh Oxygen Dependence [phone] Social History Tobacco Use Types Packs/Day Years Used Date Never Smoker Smokeless Tobacco: Never Used Alcohol Use Standard Drinks/Week Comments No 0 (1 standard drink = 0.6 oz pure alcoho l) Sex Assigned at Date Recorded Not on file documented as of this encounter Miscellaneous Notes Telephone Encounter - Fabien Roberson RN - 01/21/2021 4:00 PM EDT Rec'd call from Nahomi Breaux, daughter and out of school hours care worker of [employer], seeking to contact Dr. Haider in regards to overnight pulse oximetry testing that was completed on 12/29/2020. She needed to clarify [facility]'s CPAP situation. RN called back to Nahomi, explaining that Is working fine, in under a recall. Sleep disorder can use as long as humidifer it is mohan to use. Dr. Haider has any ideas, still continuing to have exhaustion and breathing problems. Oxygen hasn't appeared to drop when this occurs. Singulair on board, minor positive effect. Previous SOB with bending over, No recent prednisone. [facility]. documented in this encounter Plan of Treatment Not on filedocumented as of this encounter Visit Diagnoses Not on filedocumented in this encounter Care Teams Image Consultant Relationship Specialty Start Date End Date Shawna Couch MD PCP - General Family Medicine 02/16/17 [address] [place] [address] documented as of this encounter
--- OUTSIDE RECORDS SUMMARY | 2022-03-07 01:38 | XMS_ITS | Encounter Summary ---
:1940 Author Organization [facility] [place] [address] Care Team Providers Name Role Phone Shawna Couch MD Primary Care Provider Encounter Details Date Type Department Care Team Description 09/09/2017 Telephone Dermatology at [facility] Kelly Pena MD [address] [facility] [place] [phone] [facility] [phone] [place], [place] [address] (Wo rk) Social History Tobacco Use Types Packs/Day Years Used Date Never Smoker Smokeless Tobacco: Never Used Alcohol Use Standard Drinks/Week Comments No 0 (1 standard drink = 0.6 oz pure alcoho l) Sex Assigned at Date Recorded Not on file documented as of this encounter Miscellaneous Notes Telephone Encounter - Kelly Pena MD - 09/09/2017 6:18 PM EST Called Mrs. Peoples to discuss bx results. She was not available so I asked her to call back. Negative DIF. No vasculitis on bx. Neutrophil rich urticaria. I will check some labs too, just to be sure, butotherwise she should continue management of her hives with allergy. I will discuss further with patient when she returns my call. From recently allergy note it sounds like her hives are well controlled on her antihistamine regimen. Labs to check (some have been done by allergy already and are wnl). - CBC w/diff - BUN/Cr - Hep B panel - Hep C - CH50, C3, C4, c1q - WILMAN - CARLY - U/A with micro documented in this encounter Plan of Treatment Not on filedocumented as of this encounter Visit Diagnoses Not on filedocumented in this encounter Care Teams Spanish Professor Relationship Specialty Start Date End Date Shawna Couch MD PCP - General Family Medicine 02/16/17 [address] [place] [address] documented as of this encounter
--- OUTSIDE RECORDS SUMMARY | 2022-03-07 01:38 | XMS_ITS | Encounter Summary ---
:1940 Author Organization [facility] [place] [address] Care Team Providers Name Role Phone Shawna Couch MD Primary Care Provider Reason for Referral Speech Therapy (Routine) - Authorized Specialty Diagnoses / Procedures Referred By Contact Refer red To Contact Speech Therapy Diagnoses Dysphagia, unspecified type Milan Restrepo MD [facility] Nurse Assessor Rehab [facility] [place] [address] [place] [address] Fax: Referral ID Status Reason Start Expiration Visits Visits Date Date Requested Authorized [id number] Authorized Evaluate and 04/17/2021 04/17/2022 12 12 Treat Reason for Visit Consultation (Urgent) - Closed Specialty Diagnoses / Procedures Referred By Contact Refer red To Contact Gastroenterology Diagnoses dyphagia, abnormal manometry Sorin Phelps [facility] 4[facility] Procedures consult MD Jose [facility] [address] [place] [id number] Referral ID Status Reason Start Date Expiration Date Visits Requ ested Visits Authorized [id number] Closed 03/29/2021 03/29/2022 1 1 Encounter Details Date Type Department Care Team Description 04/17/2021 TH Visit Gastroenterology at [facility] Milan Restrepo Dysphagia, (TeleHealth) [facility] [place] [address] [facility] [phone] [place] [address] Social History Tobacco Use Types Packs/Day Years Used Date Never Smoker Smokeless Tobacco: Never Used Alcohol Use Standard Drinks/Week Comments No 0 (1 standard drink = 0.6 oz pure alcoho l) Sex Assigned at Date Recorded Not on file documented as of this encounter Progress Notes Milan Restrepo MD - 04/17/2021 10:00 AM EDT Images from the original note were not included. Division of Gastroenterology and Hepatology New Patient Visit PCP: Shawna Couch MD Referring provider: same as above Reason for Visit: Dysphagia HPI: Hoda Peoples is a 80 y.o. female w/ hx of: - Alzheimer's Disease - Anxiety/Depression - HTN - O/A - RLS - Seizure disorder who presents to GI clinic for dysphagia. The patient states that she has food catch in her throat and she will push it down. The patient doesn't think its a problem, but her daughters became very concerned and encouraged her to seek an evaluation. She describes a sensation of food getting stuck in her throat near her collarbone, she will take her finger and push, until she feels like the food passes. This has been ongoing for the last 4 years and occurs 4-5 times per month. This can happen to bothsolids, but can also happen to liquids both thick and thin-- there isn't a pattern. She has occasional pain when this happens, she will burp, and she might vomit some recently ingested food. The vomit will look like what she just ingested. She had an EGD in April 2020 which showed mild chronic gastritis with no hiatal hernia, no esophagitis, or schatzkis ring. She was then seen by BUCKET OPERATOR who completed MBS which was WNL. Ms. 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 On ROS, she has no fevers, no chills, weight loss, no odynophagia (except rarely as above), no nausea, no change in appetite, no early satiety, no constipation or diarrhea. She denies any acid reflux and denies taking pepcid or PPI. She is a non-smoker. She does not drink alcohol. PAST MEDICAL HISTORY: Past Medical History: Diagnosis Date ??? Alzheimer disease ??? Angio-edema ??? Anxiety disorder ??? Depression ??? Hypertension ??? Macular degeneration ??? Osteoporosis ??? Restless legs ??? Seizure disorder ??? Spinal compression fracture ??? Urticaria ??? Vertigo Patient Active Problem List Diagnosis Code ??? [...] hearing loss (SNHL) of both ears H90.3 PAST SURGICAL HISTORY: Past Surgical History: Procedure Laterality Date ??? CATARACT REMOVAL ??? SECTION ??? DILATION AND CURETTAGE OF UTERUS ??? TUBAL LIGATION SOCIAL HISTORY: Social History Socioeconomic History ??? Marital status: Spouse name: Not on file ??? Number of children: Not on file ??? Years of education: Not on file ??? Highest education level: Not on file Occupational History ??? Not on file Tobacco Use ??? Smoking status: Never Smoker ??? Smokeless tobacco: Never Used Substance and Sexual Activity ??? Alcohol use: No ??? Drug use: No ??? Sexual activity: Not on file Other Topics Concern ??? Not on file Social History Narrative ??? Not on file Social Determinants of Health Financial Resource Strain: ??? Difficulty of Paying Living Expenses: Not on file Food Insecurity: ??? Worried About Running Out of Food in the Last Year: Not on file ??? Ran Out of Food in the Last Year: Not on file Transportation Needs: ??? Lack of Transportation (Medical): Not on file ??? Lack of Transportation (Non-Medical): Not on file Physical Activity: ??? Days of Exercise per Week: Not on file ??? Minutes of Exercise per Session: Not on file Housing Stability: ??? Unable to Pay for Housing in the Last Year: Not on file ??? Number of Places Lived in the Last Year: Not on file ??? Unstable Housing in the Last Year: Not on file FAMILY HISTORY: Family History Problem Relation Age of Onset ??? Dementia Mother ??? Allergic Rhinitis Other ??? Asthma Other ??? Urticaria Neg Hx ??? Angioedema Neg Hx MEDICATIONS: Current Outpatient Medications Medication Sig Dispense Refill ??? albuteroL 90 mcg/actuation HFA Aerosol Inhaler Every 6 hours, as needed PRN ??? cyanocobalamin/folic acid (Vitamin M85-Qvssi Acid) 500-400 mcg Tablet Daily ??? estradioL (ESTRACE) 0.01 % (0.1 mg/gram) Cream ??? famotidine (Pepcid) 20 mg Tablet ??? gabapentin (Neurontin) 300 mg Capsule ??? mirtazapine (Remeron) 15 mg Tablet 1 tablet. ??? omega 1-jbs-tdq-fish oil 600 mg-216 mg- 324 mg-1,200 mg Capsule, Delayed Release(E.C.) Take by mouth daily. ??? cholecalciferol, Vitamin D3, 1,000 unit Capsule Take by mouth daily. ??? cyanocobalamin 1,000 mcg Tablet Take 1,000 mcg by mouth daily. ??? CALCIUM CARBONATE (CALCIUM 500 ORAL) Take 1,000 mg by mouth. ??? FLUoxetine (PROZAC) 20 mg Tablet Take 20 mg by mouth daily. ??? LORazepam (ATIVAN) 1 mg Tablet Take [...] lie down for the next 30 min. ??? loratadine (CLARITIN) 10 mg Tablet Take 10 mg by mouth nightly. ??? cetirizine (ZYRTEC) 10 mg Tablet Take 1 tablet by mouth nightly. (Patient not taking: Reported on 11/06/2017) 180 tablet 3 ??? diphenhydrAMINE (BENADRYL) 25 mg Tablet Take 25 mg by mouth every 6 hours as needed for Itching. ??? predniSONE (DELTASONE) 20 mg Tablet Take 3 tablets x5 days, then 2 tablets x5 days. Then stop (Patient not taking: Reported on 09/04/2017) 25 tablet 0 ??? propranolol (INDERAL) 10 mg Tablet Take 10 mg by mouth 2 times daily. ??? docusate sodium (COLACE) 50 mg Capsule Take by mouth 2 times daily. ??? montelukast (SINGULAIR) 10 mg Tablet Take 1 tablet by mouth nightly. 30 tablet 12 ??? midodrine (PROAMATINE) 5 mg Tablet 2 times daily. No current facility-administered medications for this visit. ALLERGIES: Allergies Allergen Reactions ??? Aricept [Donepezil] Nausea And Vomiting ??? Hydroxyzine Angioedema ??? Sertraline ??? Donepezil Hcl Nausea Only ??? Exelon [Rivastigmine Tartrate] Nausea And Vomiting Patient states that the capsules made her vomit. Patient tolerates the patch PHYSICAL EXAMINATION: Deferred due to telephone visit LABS: -Labs reviewed and are notable for: Lab Results Component Value Date WBC 4.1 12/02/2020 HGB 14.2 12/02/2020 HCT 40.8 12/02/2020 MCV 87.7 12/02/2020 PLATELET 150 12/02/2020 Chemistry Component Value Date/Time NA 138 12/02/2020 1445 K 3.9 12/02/2020 1445 CL 103 12/02/2020 1445 CO2 27 12/02/2020 1445 BUN 20 (H) 12/02/2020 1445 CREATININE 0.79 12/02/2020 1445 Component Value Date/Time CALCIUM 9.1 12/02/2020 1445 ALKPHOS 48 12/02/2020 1445 AST 21 12/02/2020 1445 ALT 15 12/02/2020 1445 BILITOT 0.4 12/02/2020 1445 Lab Results Component Value Date ALT 15 12/02/2020 AST 21 12/02/2020 ALKPHOS 48 12/02/2020 BILITOT 0.4 12/02/2020 IMAGING: None ENDOSCOPY: None Additional Testing: - Reviewed available labs, imaging and endoscopy results in EDH/CIS as well as Scan Docs tab. ASSESSMENT & PLAN: Hoda Peoples is a 80 y.o. female w/ PMHx of Alzheimer's Disease, Anxiety/depression, HTN, OA, RLS,and seizure disorder who presents today for regarding dysphagia. Her workup thus far included EGD and MBS at OSH (not available for review) which were reportedly normal, now with recent HREM which is concerning for possible EGJOO. While EGD w/intervention such as pneumatic dilation or botulinum injection could be indicated, it seems prudent to better understand her GEJ function with timed barium swallow, looking for retention of contrast column in the esophagus after 5 minutes. Additionally, it is ch allenging to differentiate how much her Alzheimer's disease may be factoring in to her swallowing dysfunction, and reevaluation by our BUCKET OPERATOR team is warranted. RECOMMENDATIONS: - BUCKET OPERATOR consultation - MBS protocol - Video swallow pharynx w/BUCKET OPERATOR - XR Barium swallow double contrast - XR Barium swallow (time 5 mins) - RTC in 3 months The patient was seen with Dr. Shaikh. Milan Restrepo MD PGY-4, Gastroenterology [address] [place] [address] P: [phone] F: [phone] CC Shawna Couch MD [address] [place] [id number] Lois Shaikh MD - 04/17/2021 10:00 AM EDT I was the attending physician supervising the resident in the above care. For the purposes of billing, the resident provided the care. documented in this encounter Miscellaneous Notes Addendum Note - Lois Shaikh MD - 04/17/2021 10:00 AM EDT Addended by: LOIS SHAIKH on: 04/17/2021 11:47 AM Modules accepted: Level of Service documented in this encounter Plan of Treatment Scheduled Orders Name Type Priority Associated Diagnoses Order S chedule XR Fluoro Barium Imaging Routine Dysphagia, unspecified E xpected: 05/18/2021, Swallow (5 Minute type Expires: 0 07/18/2021 Timed) XR Fluoro Barium Imaging Routine Dysphagia, unspecified E xpected: 04/18/2021, Swallow (Double type Expires: 12/2021 Contrast) Scheduled Referrals Name Type Priority Associated Diagnoses Order S chedule Referral to Speech Outpatient Referral Routine Dysphagia, Or dered: Therapy unspecified type 04/17/2021 documented as of this encounter Results XR Fluoro Barium Swallow [...] who have questions please contact the health acute care registered nurse that requested your imaging first. ? Electronically signed by: Vinh Laguna, [facility] ([phone]), at 06/17/2021 11:34 AM Narrative 06/17/2021 11:34 [...] ho have questions please contact the health acute care registered nurse that requested your imaging first. Electronically signed by: Vinh Laguna, [facility] ([phone]), at 06/17/2021 11:34 AM Lois Shaikh MD IMG FLUORO ORDERABLES documented in this encounter Visit Diagnoses Diagnosis Dysphagia, unspecified type Dysphagia, unspecified type documented in this encounter Care Teams Digital Field Service Technician Relationship Specialty Start Date End Date Shawna Couch MD PCP - General Family Medicine 02/16/17 [address] [place] [address] documented as of this encounter
--- OUTSIDE RECORDS SUMMARY | 2022-03-07 01:38 | XMS_ITS | Clinical Summary ---
:1940 Author Organization [facility] [place] [address] Care Team Providers Name Role Phone Shawna Couch MD Primary Care Provider Allergies Active Allergy Reactions Severity Noted Date Comments Donepezil Nausea And Vomiting High 07/23/2017 Donepezil Hcl Nausea Only Low 08/02/2017 Rivastigmine Tartrate Nausea And Vomiting Low 07/23/2017 Patient states that the capsules made h er vomit. Patient tolerates the p [facility] Hydroxyzine Angioedema High 08/04/2017 Sertraline 08/02/2017 Medications Medication Sig Dispensed Refills Start Date End Date Status alendronate (FOSAMAX) Take 70 mg by 0 Active 70 mg tablet mouth every 7 days. Take in the morning with a full glass of water, on an empty stomach, and do not take anything else by mouth or lie down for the next 30 min. rivastigmine (EXELON) 1 patch on skin 90 patch 1 01/06/2016 Active 4.6 mg/24 hr Patch 24 every other day hrIndications: Mild cognitive impairment mirtazapine (REMERON) Take 1 tablet by 90 tablet 3 01/29/2017 Active 15 mg Tablet mouth nightly. rOPINIRole (REQUIP) 0.5 mg nightly. 0 11/07/2016 Active 0.25 mg Tablet EPINEPHrine 0.3 mg/0.3 use as directed by 0 03/17/20 17 Active mL Auto-Injector prescriber aspirin 81 mg Tablet, Take 81 mg by 0 Active Delayed Release (E.C.) mouth every other day. fish oil-omega-3 fatty Take 2 g by mouth 0 Active acids 1,000 mg Capsule daily. Simethicone 125 mg Take by mouth 0 Active Capsule daily. magnesium 250 mg Take by mouth 0 Active Tablet daily. MULTIVIT WITH Take by mouth 0 Ac tive CALCIUM,IRON,MIN daily. (WOMEN'S DAILY MULTIVITAMIN ORAL) ranitidine (ZANTAC) Take 1 tablet by 60 tablet 11 06/19/2017 Active 150 mg Tablet mouth 2 times daily. LORazepam (ATIVAN) 1 Take 1 mg by mouth 0 Active mg Tablet every 6 hours as needed for Anxiety. omega 8-rze-hub-fish Take by mouth 0 Active oil 600 mg-216 mg- 324 daily. mg-1,200 mg Capsule, Delayed Release(E.C.) cholecalciferol, Take by mouth 0 Active Vitamin D3, 1,000 unit daily. Capsule cyanocobalamin 1,000 Take 1,000 mcg by 0 Active mcg Tablet mouth daily. CALCIUM CARBONATE Take 1,000 mg by 0 Active (CALCIUM 500 ORAL) mouth. albuteroL 90 Every 6 hours, as 0 07/16/2016 Active mcg/actuation HFA needed PRN Aerosol Inhaler cyanocobalamin/folic Daily 0 08/20/2017 Active acid (Vitamin Y00-Vclxm Acid) 500-400 mcg Tablet estradioL (ESTRACE) 0 07/19/2020 Active 0.01 % (0.1 mg/gram) Cream gabapentin (Neurontin) 0 11/24/2020 Active 300 mg Capsule mirtazapine (Remeron) 1 tablet. 0 08/02/2017 Active 15 mg Tablet Active Problems Problem Noted Date Dysphagia 12/17/2020 Dyspnea on exertion 12/17/2020 External ear conductive hearing loss 12/17/2020 Idiopathic peripheral neuropathy 12/17/2020 Memory loss 12/17/2020 Mild chronic gastritis 12/17/2020 Orthostatic hypotension 12/17/2020 Restless legs syndrome 12/17/2020 Sensorineural hearing loss (SNHL) of both ears 021 Anxiety disorder 05/20/2015 Mood disorder 05/20/2015 Mild cognitive impairment 05/18/2015 Encounters Date Type Specialty Care Team Description 12/23/2021 Office Visit Ophthalmology Stefan Encinas i nsufficiency; MD Noni Visual field defects [place] 12/17/2021 Telephone Ophthalmology Noni Encinas MD from Last 3 Months Family History Medical History Relation Comments Dementia Mother Allergic Rhinitis Other Asthma Other Amblyopia Neg Hx Angioedema Neg Hx Diabetes Neg Hx Glaucoma Neg Hx Urticaria Neg Hx Relation Status Comments Mother Other Social History Tobacco Use Types Packs/Day Years Used Date Never Smoker Smokeless Tobacco: Never Used Alcohol Use Standard Drinks/Week Comments No 0 (1 standard drink = 0.6 oz pure alcoho l) Sex Assigned at Date Recorded Not on file Last Filed Vital Signs Vital Sign Reading Time Taken Comments Blood Pressure 120/59 12/02/2020 4:15 PM EDT Pulse 57 12/02/2020 4:15 PM EDT Temperature 36.8 ??C (98.2 ??F) 12/02/2020 12:25 PM EDT Respiratory Rate 21 12/02/2020 4:15 PM EDT Oxygen Saturation 96% 12/02/2020 4:15 PM EDT Inhaled Oxygen Concentration - - Weight 71.2 kg (157 lb) 12/02/2020 12:25 PM EDT Height 170.2 cm (5' 7) 11/06/2017 1:49 PM EDT Body Mass Index 24.59 11/06/2017 1:49 PM EDT Plan of Treatment Health Maintenance Due Date Last Done Comments Covid-19 Vaccine (#1) 1945 Hepatitis C Screening 1959 Tdap adult 1960 Tetanus vaccine 1960 Zoster vaccine (1 of 2) 1991 Advance Directive 1996 Bone Density Scan 2006 Pneumoccocal Vaccine: 65+ (1 - PCV) 2006 Influenza (Flu) vaccine (1 of 1 - Influenza standard 03/13/2022 series) Procedures Procedure Name Priority Date/Time Associated Diagnosis Comme nts SENSORIMOTOR EXAM Routine 12/23/2021 4:13 Convergence Results for this PM EDT insufficiency procedure are in the results section. OCT OPTIC NERVE - OU Routine 12/23/2021 3:50 Visual field defe cts Results for this - BOTH EYES PM EDT procedure are i n the results section. FUNDUS PHOTOS - OU- Routine 12/23/2021 3:49 Convergence Resul ts for this BOTH EYES PM EDT insufficiency procedure are in the results section. AUTOMATED VISUAL Routine 12/23/2021 3:49 Convergence Results for this FIELD - EXTENDED - PM EDT insufficiency procedur e are in OU- BOTH EYES the results section. from Last 3 Months Results Sensorimotor Exam [Pr Special Eye Exam] - OU - Both Eyes (12/23/2021 4:13 PM EDT) Anatomical Region Laterality Modality Other Specimen (Source) Anatomical Location Collection Method / Collectio n Time Received Time / Laterality Volume Narrative 12/23/2021 4:13 PM EDT Sensorimotor examination revealed full extraocular movements in each eye. Hoda Sparks has an exotropia of 1-2 P D in most directions of gaze. At near, she has an intermittent exotropia of up to 14 PD. Noni Encinas MD OPHTHALMOLOGY SERVICES ORD ERABLES Oct Optic Nerve - OU - Both Eyes (12/23/2021 3:50 PM EDT) Anatomical Region Laterality Modality Other Specimen (Source) Anatomical Location Collection Method / Collectio n Time Received Time / Laterality Volume Narrative 12/23/2021 3:50 PM EDT Right Eye Quality was good. Findings include manas l observations. Temporal thickness was normal. Superior thickness was manas l. Nasal thickness was normal. Inferior thickness was normal. Left Eye Quality was good. Findings include manas l observations. Temporal thickness was normal. Superior thickness was manas l. Nasal thickness was normal. Inferior thickness was normal. Notes [place] [facility] OCT OD: ??Average RNFL: 111, classification = above nl OS: ??Average RNFL: 103, classification = borderline above Implication: No thinning or swelling OU. Noni Encinas MD OPHTHALMOLOGY SERVICES ORD ERABLES Fundus Photos - OU - Both Eyes (12/23/2021 3:49 PM EDT) Anatomical Region Laterality Modality Other Specimen (Source) Anatomical Location Collection Method / Collectio n Time Received Time / Laterality Volume Narrative 12/23/2021 3:49 PM EDT Right Eye Disc findings include normal observation s. Vessel findings include normal observations. Periphery findings include normal observations. Left Eye Disc findings include normal observation s. Vessel findings include normal observations. Periphery findings include normal observations. Notes Normal discs Noni Encinas MD OPHTHALMOLOGY SERVICES ORD ERABLES Automated Visual Field - Extended - OU - Both Eyes (12/23/2021 3:49 PM EDT) Anatomical Region Laterality Modality Other Specimen (Source) Anatomical Location Collection Method / Collectio n Time Received Time / Laterality Volume Narrative 12/23/2021 3:49 PM EDT Right Eye Threshold was 24-2. Strategy was NAEEM. R eliability was poor. Left Eye Threshold was 24-2. Strategy was NAEEM. R eliability was poor. Notes Few temporal depressed points OD, inferi or depressed points OS Noni Encinas MD OPHTHALMOLOGY SERVICES ORD ERABLES from Last 3 Months Insurance Payer Benefit Plan / Subscriber ID Effective Phone Address T ype Group Dates MEDICARE MEDICARE PART A [id number] 2006-Pres [phone] & [address] [facility] [place] [address] MEDICARE BH MEDICARE [id number] 2017-Pre [phone] PART A & B sent [address] [facility] [place] [address] AARP SUPPLEMENT AARP SUPPLEMENT [id number] [id number] [place] [address] Advance Directives Documents on File Type Date Recorded 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
--- OUTSIDE RECORDS SUMMARY | 2022-03-07 01:38 | XMS_ITS | Encounter Summary ---
:1940 Author Organization [place] [address] Care Team Providers Name Role Phone Shawna Couch MD Primary Care Provider Reason for Visit Reason Onset Date Comments Oxygen Dependence 12/27/2020 Encounter Details Date Type Department Care Team Description 12/27/2020 Telephone Pulmonology at [facility] [place] [place] Da Oxygen Dependence [facility] [place] [address] RN [phone] Social History Tobacco Use Types Packs/Day Years Used Date Never Smoker Smokeless Tobacco: Never Used Alcohol Use Standard Drinks/Week Comments No 0 (1 standard drink = 0.6 oz pure alcoho l) Sex Assigned at Date Recorded Not on file documented as of this encounter Miscellaneous Notes Telephone Encounter - Fabien Roberson RN - 12/27/2020 9:43 AM EDT Rec'd notification from pulmonary engineering secretary that patient had requested to speak to RN in regards to issues with oxygen. RN called patient back, and discussed. She notes that she was to have issues with there CPAP machineand getting her home oximetry testing completed with [facility]. She states that she wasnotified that her CPAP machine would need to be serviced prior to getting home oximetry, and she wasscheduled for priming machine operator appointment for February. Patient verbalized her anxiety and frustrations of having to wait until March for this to be done, and that she was worried that Dr. Haider would not pursue further testing after this. She also voiced her frustrations of not having a clear diagnosis, and that she would be wasting her summer being symptomatic. RN relayed the office visit notes on 12/17/2020 I suspect that she may have some reactive airways disease, though it certainly is not evident from the PFTs nor does it seem significant by her history, and I suggested that I would probably first check an overnight oximetry to exclude ongoing desaturation as a contributor to her fatigue, exhaustion and brain fog. After that I would probably need to see her in person and repeat some of her pulmonary function studies, including an ambulatory oximetry to get a better sense for whether there is a physiologic basis for her dyspnea. Follow-up after the overnight testing to be arranged through [facility]. RN attempted to explain usage of CPAP, effects of RENY causing forgetfulness, effect on increased exhaustion, and overall fatigue. She requested that RN schedule this sooner than February, and RN had to explain that RN had no capabilities of scheduling her appointments with [facility], nor changing the ir procedures, but he would attempt to contact [facility] for clarification of status. RN called [facility], and was notified that she has no appointment scheduled with them at this time for herCPAP, however her device was one of the listed in a recent Danielle recall. They did confirm once more that they had received the Overnight Pulse Oximetry order from office, and that they were still waiting on return of equipment from other patients prior, but were now slated for early week of 12/31/2020. She also was given CPAP supplied in October, and thus would be eligible for replacement supplies in several months from now, but this is unclear as there has been no direction from Danielel on how to proceed with recall. RN called and updated, but patient notes that she was sure that she had received a letter for a scheduled appointment on Apr 03 with [facility]. She retrieved letter, and stated this was an appointment for sleep study with the [facility], part of [facility]. RN explained that [facility] was the DME provider, and that [facility] clinic was a provider. Patient confirmed she willcall [facility] for rescheduling, and [facility] next Thursday if she has not heard back on scheduling. documented in this encounter Plan of Treatment Not on filedocumented as of this encounter Visit Diagnoses Not on filedocumented in this encounter Care Teams Individual Pension Adviser Relationship Specialty Start Date End Date Shawna Couch MD PCP - General Family Medicine 02/16/17 [address] [place] [address] documented as of this encounter
--- OUTSIDE RECORDS SUMMARY | 2022-03-07 01:38 | XMS_ITS | Encounter Summary ---
:1940 Author Organization [facility] [place] [address] Care Team Providers Name Role Phone Shawna Couch MD Primary Care Provider Reason for Visit - Closed Specialty Diagnoses / Procedures Referred By Contact Refer red To Contact Procedures Shawna Couch MD Film Library- Storage Only CT [address] [place] [address] Referral ID Status Reason Start Date Expiration Date Visits Requ ested Visits Authorized [id number] Closed 12/03/2020 12/03/2021 1 1 Encounter Details Date Type Department Care Team Description 06/08/2020 Ancillary Procedure Radiology Library [facility] [place] [facility] [address] [place] [address] [place] [address] [phone] Social History Tobacco Use Types Packs/Day Years Used Date Never Smoker Smokeless Tobacco: Never Used Alcohol Use Standard Drinks/Week Comments No 0 (1 standard drink = 0.6 oz pure alcoho l) Sex Assigned at Date Recorded Not on file documented as of this encounter Plan of Treatment Not on filedocumented as of this encounter Procedures Procedure Name Priority Date/Time Associated Diagnosis Comme nts FILM LIBRARY Routine 06/08/2020 12:00 AM Results for this STORAGE ONLY CT EST procedure ar e in CHEST the results section. documented in this encounter Results Film Library- Storage Only CT Chest (06/08/2020 12:00 AM EST) Specimen (Source) Anatomical Location Collection Method / Collectio n Time Received Time / Laterality Volume Narrative NICK - 12/03/2020 4:13 PM EDT This exam is auto-finalizing. It's purpo se is for storage only. Shawna Couch MD IMG FILM LIBRARY ORDERABLES Performing Organization Address City/State/ZIP Code Phon e Number [place], [place] documented in this encounter Visit Diagnoses Not on filedocumented in this encounter Care Teams Workers Compensation Consultant Relationship Specialty Start Date End Date Shawna Couch MD PCP - General Family Medicine 02/16/17 [address] [place] [address] documented as of this encounter
--- OUTSIDE RECORDS SUMMARY | 2022-03-07 01:38 | XMS_ITS | Encounter Summary ---
:1940 Author Organization [facility] [place] [address] Care Team Providers Name Role Phone Shawna Couch MD Primary Care Provider Encounter Details Date Type Department Care Team Description 03/06/2021 Telephone Gastroenterology at [facility] [place] [address] Social History Tobacco Use Types Packs/Day Years Used Date Never Smoker Smokeless Tobacco: Never Used Alcohol Use Standard Drinks/Week Comments No 0 (1 standard drink = 0.6 oz pure alcoho l) Sex Assigned at Date Recorded Not on file documented as of this encounter Miscellaneous Notes Telephone Encounter - Brendon Ramirez - 03/06/2021 12:02 PM EDT Inbound/Outbound: Outbound Spoke to Patient/Left Message: Spoke to patient Notes: Outbound call to patient regarding wait list opening for scheduled testing . Rescheduled to 03/19, re-sending prep/confirmation. Patient is checking with daughter to make sure it works and will call back if needs to reschedule. Return calls can be handled by: [employer] Lab Sewer Contractor documented in this encounter Plan of Treatment Not on filedocumented as of this encounter Visit Diagnoses Not on filedocumented in this encounter Care Teams Front Office Administrator Relationship Specialty Start Date End Date Shawna Couch MD PCP - General Family Medicine 02/16/17 [address] [place] [address] documented as of this encounter
--- OUTSIDE RECORDS SUMMARY | 2022-03-07 01:38 | XMS_ITS | Encounter Summary ---
:1940 Author Organization [facility] [place] [address] Care Team Providers Name Role Phone Shawna Couch MD Primary Care Provider Encounter Details Date Type Department Care Team Description 02/06/2021 Telephone Gastroenterology at [facility] [place] [address] Social History Tobacco Use Types Packs/Day Years Used Date Never Smoker Smokeless Tobacco: Never Used Alcohol Use Standard Drinks/Week Comments No 0 (1 standard drink = 0.6 oz pure alcoho l) Sex Assigned at Date Recorded Not on file documented as of this encounter Miscellaneous Notes Telephone Encounter - Sunni Pringle - 02/06/2021 1:14 PM EDT Moved pt back to 07/10 [facility] visit, canceled out 02/12 wait listed visit . Telephone Encounter - Idalmis Meeks - 02/06/2021 1:04 PM EDT Patient contacted the office stating that she would like to take the Manometry appointment that was originally scheduling in June. documented in this encounter Plan of Treatment Not on filedocumented as of this encounter Visit Diagnoses Not on filedocumented in this encounter Care Teams Geomatics Professor Relationship Specialty Start Date End Date Shawna Couch MD PCP - General Family Medicine 02/16/17 [address] [place] [address] documented as of this encounter
--- OUTSIDE RECORDS SUMMARY | 2022-03-07 01:38 | XMS_ITS | Encounter Summary ---
:1940 Author Organization [facility] [place] [address] Care Team Providers Name Role Phone Shawna Couch MD Primary Care Provider Encounter Details Date Type Department Care Team Description 06/26/2021 Telephone Speech Therapy at [facility] [place] [place] [address] Social History Tobacco Use Types Packs/Day Years Used Date Never Smoker Smokeless Tobacco: Never Used Alcohol Use Standard Drinks/Week Comments No 0 (1 standard drink = 0.6 oz pure alcoho l) Sex Assigned at Date Recorded Not on file documented as of this encounter Miscellaneous Notes Telephone Encounter - Janet Beltran - 06/26/2021 4:22 PM EST Good afternoon, Clinical paralegal legal secretary received an incoming call from the [facility] Gastroenterology Department - Teena [phone] who provided the patients MRN and confirmed full name. Reinbeck from Gastroenterology Department stated patient inquired about scheduling second part of modified barium swallow test. Radio Station Manager from Gastroenterology Department stated to please contact the patient with clarification. Clinical paralegal legal secretary will send a message to speech therapist inquiring if a follow-up is needed to modified barium swallow and to provide clarification. Thank you, Janet documented in this encounter Plan of Treatment Not on filedocumented as of this encounter Visit Diagnoses Not on filedocumented in this encounter Care Teams Commissioner Of Internal Revenue Relationship Specialty Start Date End Date Shawna Couch MD PCP - General Family Medicine 02/16/17 [address] [place] [address] documented as of this encounter
--- OUTSIDE RECORDS SUMMARY | 2022-03-07 01:38 | XMS_ITS | Encounter Summary ---
:1940 Author Organization [facility] [place] [address] Care Team Providers Name Role Phone Shawna Couch MD Primary Care Provider Reason for Visit Speech Therapy (Routine) - Authorized Specialty Diagnoses / Procedures Referred By Contact Refer red To Contact Speech Therapy Diagnoses Dysphagia, unspecified type Milan Restrepo MD [facility] Senior Field Engineer [facility] [place] [address] [place] [address] Fax: Referral ID Status Reason Start Expiration Visits Visits Date Date Requested Authorized [id number] Authorized Evaluate and 04/17/2021 04/17/2022 12 12 Treat Encounter Details Date Type Department Care Team Description 06/17/2021 Office Visit Speech Therapy at Rosalie Pantoja Dysph agia, oropharyngeal phase; [facility] Vinh, [employer]I MUTUEL TICKET CASHIER Dysphagia, [place] [address] Social History Tobacco Use Types Packs/Day Years Used Date Never Smoker Smokeless Tobacco: Never Used Alcohol Use Standard Drinks/Week Comments No 0 (1 standard drink = 0.6 oz pure alcoho l) Sex Assigned at Date Recorded Not on file documented as of this encounter Miscellaneous Notes Initial Evaluation - Rosalie Pantoja, [employer]I M[employer]UEL TICKET CASHIER - 06/17/2021 9:00 AM EST Speech-Language Pathology OP Modified Barium Swallow Evaluation Patient Name: Hoda Peoples Date of : 1940 Referring Provider: Milan Restrepo Date Seen by Provider: 04/17/2021 Diagnosis: Dysphagia Date of Onset: A few years ago Date of Evaluation: 06/17/2021 Duration of Evaluation 41 minutes Certification Period: Evaluation only Total Timed Code Treatment: 0 minutes S: Pt. denies pain at this time. Pt alert and cooperative with study. Pt recounts difficulty with swallowing that comes and goes with no particular pattern. She reports that it gets stuck in her (localizes globus sensation to UES), resulting in her having to push on the bolus in order to release it. O: Order received and completed with this 81 y.o. female referred by Milan Restrepo for repeat videofluoroscopic evaluation of swallowing for differential work up of pharyngeal vs. Esophageal dysphagia symptoms. Current Problem / Complaint: Briefly, patient reports that food gets stuck in her throat near her collarbone/UES area, and she has to take her finger and press into it in order to release it. She went to a GI clinic for dysphagia and is now here getting work up for etiology of symptoms. Pt has a PMH significant for seizure disorder, Alzheimer's disease, anxiety, depression and HTN. Of note, she had an EGD in April 2020 which showed mild chronic gastritis with no hiatal hernia, no esophagitis or schatzis ring. PAR[employer] M[employer]EL TICKET CASHIER evaluation for MBS was WNL at this time. 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 In interview today, patient reports that she has not been having as much trouble recently. She reports she has been on a medication that she feels has been helping. This medication is Sucralfate 1g. She reports when the food/liquid does get stuck, there appears to be no particular pattern to it. She reports she sometimes has to push at the UES to clear it. She reports sometimes this makes it worse and results in her starting to burp and then eventually has to go to the bathroom to throw it up. Skilled PAR[employer] M[employer]EL TICKET CASHIER evaluation warranted for videofluoroscopic evaluation of swallowing to rule of dysphagia etiology for cause of dysphagia symptoms. Relevant Medical History: Past Medical History: Diagnosis Date ??? Alzheimer disease ??? Angio-edema ??? Anxiety disorder ??? Depression ??? Hypertension ??? Macular degeneration ??? Osteoporosis ??? Restless legs ??? Seizure disorder ??? Spinal compression fracture ??? Urticaria ??? Vertigo Medications: Current Outpatient Medications Medication Sig Dispense Refill ??? albuteroL 90 mcg/actuation HFA Aerosol Inhaler Every 6 hours, as needed PRN ??? cyanocobalamin/folic acid (Vitamin Z56-Wmedy Acid) 500-400 mcg Tablet Daily ??? estradioL (ESTRACE) 0.01 % (0.1 mg/gram) Cream ??? gabapentin (Neurontin) 300 mg Capsule ??? mirtazapine (Remeron) 15 mg Tablet 1 tablet. ??? omega 2-lay-wpp-fish oil 600 mg-216 mg- 324 mg-1,200 mg [...] No current facility-administered medications for this visit. Current Diet: Regular solids, thin liquids Cognitive-Linguistic Status: alert, able to follow simple commands, reduced short term memory abilities, reduced reliable medical translator Respiratory Status: pt on room air Feeding / Oral Care Status: pt independent Seating and Positioning: pt able to stand sit up with head midline without assistance Oral Peripheral WFL: labial, buccal, lingual, jaw ROM, strength, agility, and sensation Velar elevation and retraction adequate Volitional swallow Speech and voice judged to be WNL Dentition: upper and lower dentures Bolus Presentation(s) (all consistencies are mixed with Barium) ?? Thin liquid via cup, via straw ?? Thick puree via spoon ?? Soft solid via spoon ?? Hard solid with barium paste ?? Pill w/ thin liquid barium contrast Oral Preparatory Phase Difficulties Revealed: ?? Poor bolus cohesion with premature spillage over posterior oral tongue ?? Oral, palatal residue ?? Tongue pumping with solids Pharyngeal Phase (Lateral View) Difficulties Revealed: ?? Premature spillage to the valleculae with thin ?? Flash penetration with consecutive sips Esophageal Phase Difficulties Reveled: ?? Per radiologist, residual contrast at the superior esophagus not cleared with subsequent swallows, recommend defer to GI Modifications Attempted: Liquid wash A: Dx: ?? WFL oropharyngeal swallowing function. Pt demonstrated swallow delay to the valleculae with thin liquids and intermittent flash penetration with larger volumes of thin liquids. Pt's oropharyngeal swallowing function appears WFL for age, and I do not suspect this is the etiology of her symptoms. Recommend regular solids and thin liquids with good adherence to safe swallow guidelines. Recommend referral GI, as suspect that her symptoms are largely associated with esophageal phase dysphagia. No further PARI MUTUEL TICKET CASHIER intervention is warranted at this time. ?? Aspiration / Penetration Scale Score (Sandeep Pollard et al. Dysphagia, 1995) ??? 1 = no material enters the airway ??? 2 = material enters the airway, does not touch the vocal cords, and is completely ejected (flashpenetration with thin liquids) ??? 3 = material enters the airway, does not touch the vocal cords, but is not ejected ??? 4 = material enters the airway, contacts the vocal cords, but is ejected ??? 5 = material enters the airway, contacts the vocal cords, but is not ejected ??? 6 = material enters the airway, passes below the vocal cords, and is ejected ??? 7 = material passes below the vocal cords, is not ejected, but there is effort made to expel material ??? 8 = material passes below the vocal cords, and there is no attempt to eject it Recommendations: Diet: Regular solids, thin liquids Aspiration Precautions / Safe Swallowing Strategies: ?? Upright for all oral intake ?? Small bites and sips ?? Swallow everything in mouth prior to next bite / sip ?? Alternate solids and liquids ?? Maintain excellent oral care ?? Remain upright for 15-30 minutes after oral intake ?? GERD precautions P: ?? No direct Speech Pathology intervention recommended at this time ?? F/u w/ referring provider ?? Pt unable to state informed agreement with plan of treatment due to MS. ?? Reviewed findings and recommendations after study w/ pt. ?? Pt./family are in agreement with plan of treatment. Thank you for this consult with this patient. Please feel free to contact me with any questions or concerns. Rosalie Pantoja M.A.,[facility]-[employer] M[employer] TICK[employer] CASHIER Speech-Language Pathologist Rehabilitation Medicine Phone: Pager # [phone] documented in this encounter Plan of Treatment Not on filedocumented as of this encounter Procedures Procedure Name Priority Date/Time Associated Diagnosis Comme nts [employer] TICK[employer] CASHIER PLAN OF CARE Routine 06/17/2021 10:30 AM Dysphagia, unspec ified CERT/RE-CERT EST type documented in this encounter Visit Diagnoses Diagnosis Dysphagia, oropharyngeal phase Dysphagia, unspecified type documented in this encounter Care Teams Roll Forming Machine Set Up Mechanic Relationship Specialty Start Date End Date Shawna Couch MD PCP - General Family Medicine 02/16/[address] [place] [id number] documented as of this encounter
--- OUTSIDE RECORDS SUMMARY | 2022-03-07 01:38 | XMS_ITS | Encounter Summary ---
:1940 Author Organization [facility] [place] [address] Care Team Providers Name Role Phone Sahwna Couch MD Primary Care Provider Encounter Details Date Type Department Care Team Description 09/21/2017 Telephone Dermatology at [facility] Kelly Pena MD [address] [facility] [place] [address] [facility] [phone] [place], [place] [address] (Wo rk) Social History Tobacco Use Types Packs/Day Years Used Date Never Smoker Smokeless Tobacco: Never Used Alcohol Use Standard Drinks/Week Comments No 0 (1 standard drink = 0.6 oz pure alcoho l) Sex Assigned at Date Recorded Not on file documented as of this encounter Miscellaneous Notes Telephone Encounter - Kelly Pena MD - 09/21/2017 5:53 PM EDT Returned Mrs. Peoples's call. She tells me she is on 5 antihistamines and completely controlled. No hives and no itching. She is very pleased. I told her I would add a few labs to check when she has a f/uwith Dr. Dawkins, but otherwise, will let Dr. Carroll continue to manage her hives. Add: UA with micro Hep B and C CBC with diff Telephone Encounter - Tamra Smiht - 09/21/2017 1:47 PM EDT Patient Hoda Peoples called again for for lab results. Please call her home phone first @ [phone], and you may leave a message. Thank you documented in this encounter Plan of Treatment Not on filedocumented as of this encounter Visit Diagnoses Diagnosis Chronic urticaria Other specified urticaria documented in this encounter Care Teams Faculty Criminal Justice Relationship Specialty Start Date End Date Shawna Couch MD PCP - General Family Medicine 02/16/17 [address] [place] [address] documented as of this encounter
--- OUTSIDE RECORDS SUMMARY | 2022-03-07 01:38 | XMS_ITS | Encounter Summary ---
:1940 Author Organization [facility] [place] [address] Care Team Providers Name Role Phone Shawna Couch MD Primary Care Provider Reason for Visit Reason Onset Date Comments Reminder Appointment 04/17/2021 Encounter Details Date Type Department Care Team Description 04/17/2021 Telephone [place] [facility] [place] Melo Appointment [facility] [place] [address] Social History Tobacco Use Types Packs/Day Years Used Date Never Smoker Smokeless Tobacco: Never Used Alcohol Use Standard Drinks/Week Comments No 0 (1 standard drink = 0.6 oz pure alcoho l) Sex Assigned at Date Recorded Not on file documented as of this encounter Miscellaneous Notes Telephone Encounter - Miranda Melo LNA - 04/17/2021 8:27 AM EDT Called patient to review medications and allergies for their upcoming gastroenterology Type of Appointment: Phone appointment. Reach Patient during MA Check: Yes Notes for the provider: Notes for the nurse: documented in this encounter Plan of Treatment Not on filedocumented as of this encounter Visit Diagnoses Not on filedocumented in this encounter Care Teams Carbon Brusher Assembler Relationship Specialty Start Date End Date Shawna Couch MD PCP - General Family Medicine 02/16/17 [address] [place] [address] documented as of this encounter
--- OUTSIDE RECORDS SUMMARY | 2022-03-07 01:38 | XMS_ITS | Encounter Summary ---
:1940 Author Organization [facility] [place] [address] Care Team Providers Name Role Phone Shawna Couch MD Primary Care Provider Reason for Referral Consultation (Routine) - Closed Specialty Diagnoses / Procedures Referred By Contact Refer red To Contact Pulmonology Diagnoses SOB (shortness of breath) Other forms of dyspnea Racheal Mahajan MD [facility] [address] [place] [address] [phone] [place] [address] Referral ID Status Reason Start Date Expiration Date Visits V isits Requested Authorized [id number] Closed Consult, Test 12/02/2020 12/02/2021 [facility] PCP Updated and/or Approved Reason for Visit Reason Comments Shortness of Breath Encounter Details Date Type Department Care Team Description 12/02/2020 Emergency Emergency Department Eliezer Blanchard MD SOB (shortness of [facility] breath) [facility] [place] [address] [place] [address] [phone] Social History Tobacco Use Types Packs/Day Years Used Date Never Smoker Smokeless Tobacco: Never Used Alcohol Use Standard Drinks/Week Comments No 0 (1 standard drink = 0.6 oz pure alcoho l) Sex Assigned at Date Recorded Not on file documented as of this encounter Last Filed Vital Signs Vital Sign Reading Time Taken Comments Blood Pressure 120/59 12/02/2020 4:15 PM EDT Pulse 57 12/02/2020 4:15 PM EDT Temperature 36.8 ??C (98.2 ??F) 12/02/2020 12:25 PM EDT Respiratory Rate 21 12/02/2020 4:15 PM EDT Oxygen Saturation 96% 12/02/2020 4:15 PM EDT Inhaled Oxygen Concentration - - Weight 71.2 kg (157 lb) 12/02/2020 12:25 PM EDT Height - - Body Mass Index 24.59 11/06/2017 1:49 PM EDT documented in this encounter Discharge Instructions Discharge InstructionsTrRacheal sommer MD - 12/02/2020 3:53 PM EDT You were seen in the ED today for assessment of worsening shortness of breath and fatigue. Your labsare normal, and your chest xray does not show abnormalities. Unfortunately we don't know what the cause of your shortness of breath is. We know that you are not having a new heart problem. You do not have blood clots in your lungs. We do not see any nodules or masses in your lungs on xray. Your blood count is normal. We have sent out a test for lyme that will result this week. Please follow up with your PCP. We are referring you to pulmonology to see as an outpatient for further workup. Please return to the ED if your breathing difficulty continues to worsen, if you have anytrouble swallowing, if you have any chest pain, if you lose consciousness, become dizzy or have new neurological changes. documented in this encounter Medications at Time of Discharge Medication Sig Dispensed Refills Start Date End Date albuteroL 90 Every 6 hours, as 0 07/16/2016 mcg/actuation HFA Aerosol needed PRN Inhaler cyanocobalamin/folic acid Daily 0 08/20/2017 (Vitamin N39-Fudge Acid) 500-400 mcg Tablet estradioL (ESTRACE) 0.01 0 07/19/2020 % (0.1 mg/gram) Cream gabapentin (Neurontin) 0 11/24/2020 300 mg Capsule mirtazapine (Remeron) 15 1 tablet. 0 08/02/2017 mg Tablet omega 3-ghr-htf-fish oil Take by mouth 0 600 mg-216 mg- 324 daily. mg-1,200 mg Capsule, Delayed Release(E.C.) cholecalciferol, Vitamin Take by mouth 0 D3, 1,000 unit Capsule daily. cyanocobalamin 1,000 mcg Take 1,000 mcg by 0 Tablet mouth daily. CALCIUM CARBONATE Take 1,000 mg by 0 (CALCIUM 500 ORAL) mouth. LORazepam (ATIVAN) 1 mg [...] Simethicone 125 mg Take by mouth 0 Capsule daily. magnesium 250 mg Tablet Take by mouth 0 daily. MULTIVIT WITH Take by mouth 0 CALCIUM,IRON,MIN (WOMEN'S daily. DAILY MULTIVITAMIN ORAL) ranitidine (ZANTAC) 150 Take 1 tablet by 60 tablet 11 2016 mg Tablet mouth 2 times daily. rOPINIRole (REQUIP) 0.25 0.5 mg nightly. 0 2016 mg Tablet mirtazapine (REMERON) 15 Take 1 tablet by 90 tablet 3 01/29 mg Tablet mouth nightly. rivastigmine (EXELON) 4.6 1 patch on skin 90 patch 1 01/05 mg/24 hr Patch 24 every other day hrIndications: Mild cognitive impairment alendronate (FOSAMAX) 70 Take 70 mg by mouth 0 mg tablet every 7 days. Take in the morning with a full glass of water, on an empty stomach, and do not take anything else by mouth or lie down for the next 30 min. famotidine (Pepcid) 20 mg 0 08/14/2020 04/17/2021 Tablet loratadine (CLARITIN) 10 Take 10 mg by mouth 0 04/17/2021 mg Tablet nightly. cetirizine (ZYRTEC) 10 mg Take 1 tablet by 180 tablet 3 09/1104/17/2021 Tablet mouth nightly. diphenhydrAMINE Take 25 mg by mouth 0 04/17/2021 (BENADRYL) 25 mg Tablet every 6 hours as needed for Itching. predniSONE (DELTASONE) 20 Take 3 tablets x5 25 tablet 0 02/201804/17/2021 mg TabletIndications: days, then 2 Hives tablets x5 days. Then stop FLUoxetine (PROZAC) 20 mg Take 20 mg by mouth 0 04/17/2021 Tablet daily. propranolol (INDERAL) 10 Take 10 mg by mouth 0 04/17/2021 mg Tablet 2 times daily. docusate sodium (COLACE) Take by mouth 2 0 04/17/2021 50 mg Capsule times daily. montelukast (SINGULAIR) Take 1 tablet by 30 tablet 12 201604/17/2021 10 mg Tablet mouth nightly. midodrine (PROAMATINE) 5 2 times daily. 0 017 04/17/2021 mg Tablet documented as of this encounter ED Notes Day Bailey RN - 12/02/2020 3:41 PM EDT Pt ambulated ED hallway accompanied by Alida PISANO and monitored, pt maintained SATS > 94%. Racheal Mahajan MD - 12/02/2020 2:03 PM EDT ED Resident Note HPI: Hoda Peoples is a 80 y.o. female with a pmh of mood disorders who presents to the Emergency Department with one week of worsening SOB since completing PFTs one week ago. Pt initially noticed exertional shortness of breath last May. She was feeling short of breath with stairs and bending over. She was seen in an ED at that time and told that all was normal. She says that she went home and started to feel better for a few months. In September she again started to notice SOB that was exertional in nature. She went to her PCP who started workup. Pulmonary function tests were ordered and she completed them last week. She has no known cardiac disease but is wearing a zio patch for monitoring. Pt saysthat her shortness of breath increased significantly after her PFTs. She denies cough, fever, chest pain, trauma, allergies, pets at home, changes in environment at home. She lives with her [facility] care for her. She has never smoked. Goals of Care: Patient's concerns / fears at todays visit are concerns for disease and symptoms will get worse. Patient's expectations/hopes at today's visit are testing / diagnosis. Pt was seen under the supervision of an attending physician. Review of Systems Constitutional: Positive for fatigue. Negative for chills, diaphoresis, fever and unexpected weight change. HENT: Negative for congestion, hearing loss, postnasal drip, rhinorrhea, sinus pressure, sinus pain,sneezing, sore throat and trouble swallowing. Respiratory: Positive for shortness of breath. Negative for cough, choking, chest tightness, wheezing and stridor. Cardiovascular: Negative for chest pain, palpitations and leg swelling. Allergic/Immunologic: Negative for environmental allergies. Neurological: Negative for dizziness, syncope, weakness, light-headedness and headaches. Pertinent positives and negatives are included in the HPI, otherwise at least ten systems were reviewed and negative. Past Medical and Surgical Histories, Social History, Medications, Allergies were reviewed in the chart. Vitals: ED Triage Vitals [12/02/20 1225] BP: 133/69 Heart Rate: 72 Resp: 20 Temp: 36.8 ??C (98.2 ??F) Temp src: Temporal SpO2: 100 % O2 Device: RA O2 Flow Rate (L/min): n/a Physical Exam Vitals and nursing note reviewed. Constitutional: General: She is not in acute distress. Appearance: Normal appearance. She is not ill-appearing, toxic-appearing or diaphoretic. HENT: Nose: No congestion or rhinorrhea. Cardiovascular: Pulses: Normal pulses. Heart sounds: Normal heart sounds. Pulmonary: Effort: Pulmonary effort is normal. No respiratory distress. Breath sounds: Normal breath sounds. No stridor. No wheezing, rhonchi or rales. Chest: Chest wall: No tenderness. Musculoskeletal: General: No tenderness. Right lower leg: No edema. Left lower leg: No edema. Skin: General: Skin is warm and dry. Neurological: Mental Status: She is alert. ED Course: I have reviewed labs and imaging, images and available reports, and they are significant for: Last 3 wbc, hgb, hct plt Recent Labs 12/02/20 1445 WBC 4.1 HGB 14.2 HCT 40.8 PLATELET 150 Last 3 Lytes Recent Labs 12/02/20 1445 NA 138 K 3.9 CL 103 CO2 27 BUN 20* CREATININE 0.79 GLUCOSE 95 Last 3 Trop, ProBNP, CK Recent Labs 12/02/20 1445 TROPONINT <0.01 Last D-Dimer Recent Labs 12/02/20 1445 DDIMER 652* I reviewed the EKG tracing: Rhythm: NSR Rate: 81 Relevant findings: septal infarct, age undetermined XR Chest One View Final Result No acute cardiopulmonary pathology. Thank you for letting us participate in the care of this patient. If you are a health care provider and have any questions regarding this report, please contact the number below. For patients who have questions please contact the health child caregiver that requested your imaging first. Assessment and Plan: Hoda Peoples is a 80 y.o. female with a pmh of mood disorders who presents to the Emergency Department with one week of worsening SOB since completing PFTs one week ago. We will rule out life threatening causes of shortness of breath including PE, ACS, pneumothorax, effusion, and less acute problemsincluding anemia. However, it is possible that we are unable to find a specific cause for pt's subacute SOB at this time. She is very much hoping for a diagnosis and feels anxious about not knowing thecause of these symptoms. We will refer pt to pulmonology for further workup. #shortness of breath - CBC - BMP - d-dimer - CXR - EKG - troponin - monitor vitals - ambulatory O2 sats Pt's labs and CXR are normal reassuring against PE, ACS, pneumo, malignancy, and structural abnormality. Pts oxygen saturation remained >92% while ambulating and HR did not change. The visit findings, diagnosis, and care plan were discussed with the patient. The diagnosis and care plans discussions were outlined in the discharge instructions. The patient expressed understanding of the details of the visit, the return precautions and that she should return to the ER at any time for worsening symptoms, new symptoms, or other concerns. she agrees with the follow- up plan. Racheal Mahajan MD Resident 12/02/20 2361 Associated attestation - Yaritza Blanchard MD - 12/03/2020 2:39 PM EDT ED ATTENDING ATTESTATION NOTE The patient was seen in conjunction with the resident physician. I have independently performed the staley portions of the history and physical exam. I have reviewed the nursing notes, vital signs, and all diagnostic studies personally including labs, imaging studies and EKGs. I have discussed the details of the case with the resident and agree with the assessment and plan as described in the resident note unless noted otherwise. Final Assessment: Shortness of breath documented in this encounter Miscellaneous Notes ED Triage - Esther Segura RN - 12/02/2020 12:23 PM EDT Pt presents with SOB. States she did a breathing test at her PCP a week ago and since then she has had increased SOB, lightheaded, dizzy, and fatigue. No chest pain. No n/v/f/d. Negative covid test on VSS documented in this encounter Plan of Treatment Scheduled Referrals Name Type Priority Associated Order Schedule Diagnoses Referral to Outpatient Referral Routine SOB (shortness of Ord ered: Pulmonology breath) 12/02/2020 documented as of this encounter Procedures Procedure Name Priority Date/Time Associated Comments Diagnosis XR CHEST ONE VIEW STAT 12/02/2020 2:58 PM Resu lts for this EDT procedure are i n the results section. HC LYME DISEASE, Routine 12/02/2020 2:45 PM Resul ts for this KATHI EDT procedure are i n the results section. HEMOGRAM STAT 12/02/2020 2:45 PM Results f or this EDT procedure are i n the results section. DIFFERENTIAL, STAT 12/02/2020 2:45 PM Results for this AUTOMATED EDT procedure are i n the results section. HC D-DIMER, STAT 12/02/2020 2:45 PM Results f or this QUANTITATIVE EDT procedure are i n the results section. HC CBC,PLT & AUTO STAT 12/02/2020 2:45 PM DIFF EDT HC TROPONIN T STAT 12/02/2020 2:45 PM Results for this EDT procedure are i n the results section. HEPATIC FUNCTION STAT 12/02/2020 2:45 PM Resul ts for this PANEL EDT procedure are i n the results section. BASIC METABOLIC PANEL STAT 12/02/2020 2:45 PM Results for this (NON-FASTING) EDT procedure are in the results section. EKG 12-LEAD STAT 12/02/2020 12:39 Results for this PM EDT procedure are i n the results section. documented in this encounter Results XR Chest One View (12/02/2020 2:58 PM EDT) Anatomical Region Laterality Modality Chest N/A Digital Radiography Specimen (Source) Anatomical Location Collection Method / Collectio n Time Received Time / Laterality Volume Impressions 12/02/2020 3:05 PM EDT No acute cardiopulmonary pathology. Thank you for letting us participate in the care of this patient. ??If you are a health care provider and have any questi ons regarding this report, please contact the number below. ??For patients who have questions please contact the health child caregiver that requested your imaging first. ? Narrative 12/02/2020 3:05 PM EDT EXAMINATION: XR CHEST ONE VIEW CLINICAL HISTORY: shortness of breath TECHNIQUE: 1 view of the chest AP portable semiupri ght. COMPARISON: None FINDINGS: A loop recorder projects over the mid le ft hemithorax. No focal lung consolidation. Minimal str eaky opacity at the left lung base consistent with atelectasis. There is mi ld prominence/congestion of the pulmonary vasculature. The cardiac silho uette is within normal limits. No pneumothorax or pleural effusion. Procedure Note Isa Benitez MD - 12/02/2020Formatt ing of this note might be different from the original. EXAMINATION: XR CHEST ONE VIEW CLINICAL HISTORY: shortness of breath TECHNIQUE: 1 view of the chest AP portable semiupri ght. COMPARISON: None FINDINGS: A loop recorder projects over the mid le ft hemithorax. No focal lung consolidation. Minimal str eaky opacity at the left lung base consistent with atelectasis. There is mi ld prominence/congestion of the pulmonary vasculature. The cardiac silho uette is within normal limits. No pneumothorax or pleural effusion. IMPRESSION No acute cardiopulmonary pathology. Thank you for letting us participate in the care of this patient. If you are a health care provider and have any questi ons regarding this report, please contact the number below. For patients w ho have questions please contact the health child caregiver that requested your imaging first. Yaritza Blanchard MD IMG DX ORDERABLES Differential, Automated (12/02/2020 2:45 PM EDT) P athologist Signature Neutrophils % 45.8 % [facility] Neutr Abs (ANC) 1.89 1.70 - [facility] 6.10 [facility] x10(3)/[facility] LABORATORY Lymphocytes % 38.7 % [facility] Lymphocytes Abs 1.6 0.9 - 3.2 [facility] x10(3)/[facility] LABORATORY Monocytes % 8.5 % [facility] Monocyte Abs 0.4 0.3 - 0.9 [facility] x10(3)/[facility] LABORATORY Eosinophils % 6.1 % [facility] Eosinophils Abs 0.2 0.0 - 0.4 [facility] x10(3)/[facility] LABORATORY Basophils % 0.7 % [facility] Basophils Abs 0.0 0.0 - 0.1 [facility] x10(3)/[facility] LABORATORY Immature Gran % 0.20 % [facility] Comment: Immature granulocytes(IG's)percentage an d absolute count will include metamyelocytes, myelocytes, and promyelo cytes. Blood smears from CBCs yielding IG's will be scanned manually for concor dance. If this scan disagrees with the automated IG or if promyelocytes are not ed, a manual differential will be performed. [place] Gran Abs 0.01 0.00 - 0.04 x10(3)/[facility] Specimen Anatomical Collection Method Collection Time Receive d Time (Source) Location / / Volume Laterality Blood 12/02/2020 2:45 PM 1 2:53 EDT PM EDT Resulting Agency Comment Spec In Lab Racheal Mahajan MD HEMATOLOGY ORDERABLES Performing Organization Address City/State/[place] [address] Hemogram (12/02/2020 2:45 PM EDT) P athologist Signature WBC 4.1 4.0 - 9.5 [facility] x10(3)/[facility] LABORATORY RBC 4.65 4.00 - [facility] x10(6)/[facility] Hemoglobin 14.2 11.7 - [facility] 15.5 gm/dL [facility] Hematocrit 40.8 35.7 - [facility] 45.8 % [facility] MCV 87.7 82.6 - [facility] 94.4 fL [facility] MCH 30.5 27.1 - [facility] 32.0 pg [facility] MCHC 34.8 31.7 - [facility] 35.0 gm/dL [facility] Platelets 150 145 - 357 [facility] x10(3)/[facility] RDWSD 39.1 37.0 - [facility] [place] 46.0 [facility] LABORATORY RDWCV 12.1 11.5 - [facility] 14.1 % [facility] MPV 9.4 7.6 - 12.9 [facility] NES[place] LABORATORY nRBC % Auto 0.0 % [facility] nRBC Abs Auto 0.000 0.000 - [facility] [place] 0.000 [facility] x10(3)/[facility] LABORATORY Specimen Anatomical Collection Method Collection Time Receive d Time (Source) Location / / Volume Laterality Blood 12/02/2020 2:45 PM 1 2:53 EDT PM EDT Resulting Agency Comment Spec In Lab Racheal Mahajan MD HEMATOLOGY ORDERABLES Performing Organization Address City/[facility]/ZIP Code Phon e Number [address] Lyme IgG & IgM Antibody (12/02/2020 2:45 PM EDT) athologist Signature Lyme Screening Neg Neg [facility] LABORATORY Specimen Anatomical Collection Method Collection Time Receive d Time (Source) Location / / Volume Laterality Blood 12/02/2020 2:45 PM 1 7:22 EDT AM EDT Resulting Agency Comment Spec In Lab Yaritza Blanchard MD IMMUNOLOGY ORDERABLES Performing Organization Address City/[facility] Phon e Number [address] Hepatic Function Panel (12/02/2020 2:45 PM EDT) P athologist Signature Total Protein 6.9 6.1 - 8.0 [facility] [place] gm/dL [facility] Albumin 4.1 3.2 - 5.2 [facility] [place] gm/dL [facility] AST 21 0 - 30 [facility] [place] unit/L [facility] ALT 15 0 - 30 [facility] [place] unit/L [facility] Alk Phos 48 35 - 105 [facility] [place] unit/L [facility] Total 0.4 0.2 - 1.3 [facility] [employer] Bilirubin mg/dL [facility] Bili, Direct 0.1 0.0 - 0.3 [facility] mg/dL [facility] Specimen Anatomical Collection Method Collection Time Receive d Time (Source) Location / / Volume Laterality Blood 12/02/2020 2:45 PM 1 2:53 EDT PM EDT Resulting Agency Comment Spec In Lab Yaritza Blanchard MD CHEMISTRY ORDERABLES Performing Organization Address [facility] [place] [address] (ABNORMAL) D-Dimer, Quantitative (12/02/2020 2:45 PM EDT) athologist Signature D-Dimer, Quant 652 (H) 0 - 500 [facility] [place] FEU ng/ml [facility] Comment: The D-Dimer assay is used to aid in the diagnosis of deep vein thrombosis and pulmonary embolism. A normal D-Dimer res ult (less than 500 FEU ng/ml) has a negative predictive value of approximate ly 95% for the exclusion of acute PE and DVT when there is low to moderate pr etest probability. To use age adjusted cutoff: Age x 10 ng/ml. Specimen Anatomical Collection Method Collection Time Receive d Time (Source) Location / / Volume Laterality Blood 12/02/2020 2:45 PM 1 2:53 EDT PM EDT Resulting Agency Comment Spec In Lab Yaritza Blanchard MD HEMATOLOGY ORDERABLES Performing Organization Address [facility] [place] [address] Troponin (12/02/2020 2:45 PM EDT) athologist [facility] Troponin-T <0.01 0.00 - 0.00 [facility] [place] ng/mL [facility] Comment: The 99th percentile for Troponin T is le ss than 0.01 ng/mL, any detectable cTnT concentration using this assay should be considered elevated. According to the third universal definit ion of myocardial infarction the following criteria with a clinical prese ntation consistent with acute myocardial ischemia meets the diagnosis for a myocardial infarction ([place]). Detection of a rise and/or fall of cTnT, with at least one value greater than the 99th percentile (> or = 0.01) and wi th at least one of the following ?? Symptoms of ischemia ?? New or presumed new significant ST-se gment-T wave (ST-T) changes or new left bundle branch block (LBBB) ?? Development of pathologic Q waves in the ECG ?? Imaging evidence of new loss of viabl e myocardium or new regional wall motion abnormality ?? Identification of an intracoronary th rombus by angiography or autopsy Samples for cTnT testing should be obtai taran serially upon first assessment and again 3 to 6 hours later. If the clinica l suspicion is high and previous samples have been negative an additional sample may be indicated. Reference: Third Lynn Definition of Myocardial Infarction. Journal of the [place] [employer] 2012;60:1581-98 Specimen Anatomical Collection Method Collection Time Receive d Time (Source) Location / / Volume Laterality Blood 12/02/2020 2:45 PM 2:53 EDT PM EDT Resulting Agency Comment Spec In Lab Yaritza Blanchard MD CHEMISTRY ORDERABLES Performing Organization Address City/State/[place] [address] (ABNORMAL) Basic Metabolic Panel (non-fasting) (12/02/2020 2:45 PM EDT) P athologist Signature Glucose Lvl 95 65 - 199 [facility] mg/dL [facility] Comment: Diabetes: >=200 mg/dL plus symp toms BUN 20 (H) 8 - 18 mg/dL [facility] Creatinine 0.79 0.70 - 1.20 mg/dL [facility] Sodium 138 135 - 145 mmol/L [facility] Potassium 3.9 3.5 - 5.0 mmol/L [facility] Comment: Please note: ??Patients with WBC >100,00 0 may have falsely elevated Potassium levels. ??For accurate Potassium quantif ication in these patients send serum separator tube (gold top) for subsequent determinations. ??Contact the Clinical Chemistry Laboratory if there are any qu estions. Chloride 103 98 - 107 mmol/L [facility] CO2 27 22 - 31 mmol/L [facility] Anion Gap 8 5 - 15 mmol/L [facility] Calcium 9.1 8.5 - 10.5 mg/dL [facility] Estimated GFR 71 >=60 mL/min/1.73 m?? [facility] Comment: This patient? s estimated glomerular filtration rate (eGFR) is between 71 mL/min/1.73 m2 (patients with less muscl e mass) and 83 mL/min/1.73 m2 (patients with more muscle mass) as determined by the CKD-EPI equation. Assessment of eGFR is not appropriate when creatinine concentrations are rapidly changing. For clinical decisions where creatinine clearance will affect therapy, a 24-hour urine creatinine clearance may b e advised. Assignment of CKD stage 1 - 5 for patien ts with an eGFR near the transition point between stages may be based on cli nical assessment of muscle mass and symptoms in addition to eGFR. Specimen Anatomical Collection Method Collection Time Receive d Time (Source) Location / / Volume Laterality Blood 12/02/2020 2:45 PM 2:53 EDT PM EDT Resulting Agency Comment Spec In Lab Yaritza Blanchard MD CHEMISTRY ORDERABLES Performing Organization Address City/State/[place] [address] EKG 12 Lead (12/02/2020 12:39 PM EDT) Component Value Ref Range Test Analysis Performed Pathologis t Method Time At Signature Ventricular rate 77 BPM MUSE SYSTEM Atrial Rate 77 BPM MUSE SYSTEM P-R Interval 170 ms MUSE SYSTEM QRS Duration 86 ms MUSE SYSTEM Q-T Interval 360 ms MUSE SYSTEM QTC Calculated 407 ms MUSE SYSTEM (Bezet) Calculated P [place] 57 degrees MUSE SYSTEM Calculated R [place] 6 degrees MUSE SYSTEM Calculated T [place] 46 degrees MUSE SYSTEM INTERPRETATION Normal sinus rhythm MUSE SYSTEM Septal infarct , age undetermined Abnormal ECG No previous ECGs available Confirmed by MD Ge, Xavier ([id number]) on 12/04/2020 8:44:24 AM Specimen Anatomical Collection Method Collection Time Receive d Time (Source) Location / / Volume Laterality 12/02/2020 12:39 12/04/2020 8:44 PM EDT AM EDT Paul Bingham MD ECG ORDERABLES Performing Organization Address City/State/ZIP Code Phon e Number MUSE SYSTEM documented in this encounter Visit Diagnoses Diagnosis SOB (shortness of breath) Shortness of breath documented in this encounter Care Teams Housefellow Relationship Specialty Start Date End Date Shawna Couch MD PCP - General Family Medicine 02/16/17 [address] [place] [address] documented as of this encounter
--- OUTSIDE RECORDS SUMMARY | 2022-03-07 01:38 | XMS_ITS | Encounter Summary ---
:1940 Author Organization [facility] [place] [address] Care Team Providers Name Role Phone Shawna Couch MD Primary Care Provider Encounter Details Date Type Department Care Team Description 12/17/2021 Telephone [facility] [place] [address] [facility] [phone] OPHTHALMOLOGY [place], [place] [address] (Wo rk) Social History Tobacco Use Types Packs/Day Years Used Date Never Smoker Smokeless Tobacco: Never Used Alcohol Use Standard Drinks/Week Comments No 0 (1 standard drink = 0.6 oz pure alcoho l) Sex Assigned at Date Recorded Not on file documented as of this encounter Miscellaneous Notes Telephone Encounter - Guillermina Ayala - 12/17/2021 2:48 PM EDT Called patient to pre-chart. Directly to voicemail, unable to leave message. documented in this encounter Plan of Treatment Not on filedocumented as of this encounter Visit Diagnoses Not on filedocumented in this encounter Care Teams Grip Relationship Specialty Start Date End Date Shawna Couch MD PCP - General Family Medicine 02/16/17 [address] [place] [address] documented as of this encounter
--- OUTSIDE RECORDS SUMMARY | 2022-03-07 01:38 | XMS_ITS | Encounter Summary ---
:1940 Author Organization [facility] [address] Care Team Providers Name Role Phone Shawna Couch MD Primary Care Provider Reason for Visit Reason Comments Medication Refill Encounter Details Date Type Department Care Team Description 12/23/2017 Refill Psychiatry and Behavioral Carole Milan MD [facility] [place] [address] [place] [address] [phone] (Wo rk) Social History Tobacco Use Types [...] on filedocumented in this encounter Care Teams Resource Specialist Relationship Specialty Start Date End Date Shawna Couch MD PCP - General Family Medicine 02/16/17 [address] [place] [address] documented as of this encounter
--- OUTSIDE RECORDS SUMMARY | 2022-03-07 01:38 | XMS_ITS | Encounter Summary ---
:1940 Author Organization [facility] [place] [address] Care Team Providers Name Role Phone Shawna Couch MD Primary Care Provider Encounter Details Date Type Department Care Team Description 06/14/2021 Telephone Pulmonology at [facility] [place] [address] Social History Tobacco Use Types Packs/Day [...] on filedocumented in this encounter Care Teams Knotter Hand Relationship Specialty Start Date End Date Shawna Couch MD PCP - General Family Medicine 02/16/17 [address] [place] [address] documented as of this encounter
--- OUTSIDE RECORDS SUMMARY | 2022-03-07 01:38 | XMS_ITS | Encounter Summary ---
:1940 Author Organization [facility] [place] [address] Care Team Providers Name Role Phone Shawna Couch MD Primary Care Provider Reason for Visit Reason Comments Follow-up Urticaria Encounter Details Date Type Department Care Team Description 10/07/2017 Office Visit Allergy at [facility] Apple Dawkins, Chronic urticaria; [facility] Angioedema, subsequent encounter; Drive [facility] On aspirin at home; [place], [place] Fatigue, unspecified type [id number] ALLERGY AND [phone] IMMUNOLOGY [place], [place] [address] Social History Tobacco Use Types Packs/Day Years Used Date Never Smoker Smokeless Tobacco: Never Used Alcohol Use Standard Drinks/Week Comments No 0 (1 standard drink = 0.6 oz pure alcoho l) Sex Assigned at Date Recorded Not on file documented as of this encounter Last Filed Vital Signs Vital Sign Reading Time Taken Comments Blood Pressure 127/66 10/07/2017 1:53 PM EDT Pulse 64 10/07/2017 1:53 PM EDT Temperature - - Respiratory Rate 18 10/07/2017 1:53 PM EDT Oxygen Saturation - - Inhaled Oxygen Concentration - - Weight 66.7 kg (147 lb) 10/07/2017 1:53 PM EDT Height 170.2 cm (5' 7) 10/07/2017 1:53 PM EDT Body Mass Index 23.02 10/07/2017 1:53 PM EDT documented in this encounter Patient Instructions Patient InstructionsApple Dawkins MD - 10/07/2017 2:00 PM EDT - Decrease Zyrtec to 10mg nightly ( stopped morning dose) - Continue loratadine ( Claritin) 10mg nightly - continue Zantac 150mg twice daily - Continue montelukast 10mg nightly - Stop Benadryl scheduled at night. Continue Benadryl 25mg every 6 hours as needed for hives or itchiness Antihistamines are sedating. Please do not operate machinery or drive a car while on antihistamines. - Always have EpiPen available. Call 911 and go to the local ER after administering epinephrine. - Avoid NSAIDs ( ie ??ibuprofen, naproxen, Motrin, Aleve, Advil). Okay to continue aspirin 81mg. - Avoid friction, hot showers and alcohol documented in this encounter Progress Notes Apple Dawkins MD - 10/07/2017 2:00 PM EDT Chief Complaint Patient presents with ??? Follow-up ??? Urticaria HPI. Hoda Peoples Is here today for a follow up visit. Last encounter in this section was on 09/04/2017 # Chronic urticaria # Angioedema # On aspirin at home The patient has not had an urticarial flares. She has mild erythema around her waistline if she wears pants. No associated angioedema or difficulty breathing. She is taking Zyrtec 10mg tab one tab in the morning and 10mg liquid at night, loratadine 10mg nightly, ranitidine 150mg twice daily and montelukast nightly. She also takes Benadryl 25mg nightly. She feels spacy at time on this regimen. The patient had a skin biopsy of her hives on 08/20/17. Direct immunofluroescence was negative for vasculitis there was superficial and deep perivascular and interstitial mixed infiltrate of neutrophils,eosinophils and lymphocytes and dermal edema. No unexplained fever, chills, night sweats, weight loss, decreased appetite or lymphadenopathy. She is not eliminating histamine from her diet since she did not see any association with any specific foods. She has been treated with oral steroids four times ( 03/12/17, 03/29/17,05/16/17, 08/20/17) since she initially developed hives. She has been avoiding NSAIDs except aspirin. She is taking aspirin every other day. Has EpiPen that expiration July 2018. Component Latest Ref Rng & Units 08/13/2017 Total Prot Elec 6.1 - 8.0 gm/dL 7.1 Albumin Elect 3.60 - 6.00 gm/dL 4.62 Alpha1-Globulin 0.10 - 0.30 gm/dL 0.18 Alpha2-Globulin 0.40 - 0.90 gm/dL 0.77 Beta Globulin 0.50 - 1.00 gm/dL 0.70 Gamma Globulin 0.50 - 1.30 gm/dL 0.83 M1 Band None Detected Thyroperox Ab <=34 IU/mL <10 Thyroglob Ab 0.0 - 40.0 IU/mL <20.0 G6PD Qual Negative screening for G6PD deficiency. C3 Complement 90 - 180 mg/dL 121 C4 Complement 10 - 40 mg/dL 23 C1q Immune Complex <=25.1 mcg Eq/mL <1.2 Review of Systems: All other systems reviewed and negative, except as noted below. Review of Systems Skin: Positive for rash. All other systems reviewed and are negative. Allergies, medications, past medical/ surgical history were reviewed and updated in eDH. Allergies: Aricept [donepezil]; Hydroxyzine; and Exelon [rivastigmine tartrate] Medications: Outpatient Prescriptions Marked as Taking for the 10/07/17 encounter (Office Visit) with Apple Dawkins MD Medication Sig Dispense Refill ??? loratadine (CLARITIN) 10 mg Tablet Take 10 mg by mouth nightly. ??? cetirizine (ZYRTEC) 10 mg Tablet Take 1 tablet by mouth nightly. 180 tablet 3 ??? diphenhydrAMINE (BENADRYL) 25 mg Tablet Take 25 mg by mouth every 6 hours as needed for Itching. ??? omega 3-csf-bri-fish oil 600 mg-216 mg- 324 mg-1,200 mg Capsule, Delayed Release(E.C.) Take by mouth daily. ??? cholecalciferol, Vitamin D3, 1,000 unit Capsule Take by mouth daily. ??? cyanocobalamin 1,000 mcg Tablet Take 1,000 mcg by mouth daily. ??? CALCIUM CARBONATE (CALCIUM 500 ORAL) Take 1,000 mg by mouth. ??? [DISCONTINUED] cetirizine (ZYRTEC) 10 mg Tablet Take 1 tablet by mouth 2 times daily. 180 tablet3 ??? [DISCONTINUED] loratadine (CLARITIN) 10 mg Tablet Take 1 tablet by mouth 2 times daily. (Patienttaking differently: Take 10 mg by mouth daily.) 180 tablet 3 ??? aspirin 81 mg Tablet, Delayed Release (E.C.) Take 81 mg by mouth every other day. ??? fish oil-omega-3 fatty acids 1,000 mg Capsule Take 2 g by mouth daily. ??? Simethicone (GAS-X) 125 mg Capsule Take by mouth daily. ??? docusate sodium (COLACE) 50 mg Capsule Take by mouth 2 times daily. ??? magnesium 250 mg Tablet Take by mouth daily. ??? MULTIVIT WITH CALCIUM,IRON,MIN (WOMEN'S DAILY MULTIVITAMIN ORAL) Take by mouth daily. ??? montelukast (SINGULAIR) 10 mg Tablet Take 1 tablet by mouth nightly. 30 tablet 12 ??? ranitidine (ZANTAC) 150 mg Tablet Take 1 tablet by mouth 2 times daily. 60 tablet 11 ??? midodrine (PROAMATINE) 5 mg Tablet 2 times daily. ??? rOPINIRole (REQUIP) 0.25 mg Tablet nightly. ??? mirtazapine (REMERON) 15 mg Tablet [...] lie down for the next 30 min. Past Medical and Social History: Past Medical History: Diagnosis Date ??? Alzheimer disease ??? Angio-edema ??? Anxiety disorder ??? Depression ??? Hypertension ??? Macular degeneration ??? Osteoporosis ??? Restless legs ??? Seizure disorder ??? Spinal compression fracture ??? Urticaria ??? Vertigo Past Surgical History: Procedure Laterality Date ??? CATARACT REMOVAL ??? SECTION ??? DILATION AND CURETTAGE OF UTERUS ??? TUBAL LIGATION Family history: Family History Problem Relation Age of Onset ??? Dementia Mother ??? Allergic Rhinitis Other ??? Asthma Other ??? Urticaria Neg Hx ??? Angioedema Neg Hx Social history: Social History Social History ??? Marital status: Spouse name: N/A ??? Number of children: N/A ??? Years of education: N/A Social History Main Topics ??? Smoking status: Never Smoker ??? Smokeless tobacco: Never Used ??? Alcohol use No ??? Drug use: No ??? Sexual activity: Not Asked Other Topics Concern ??? None Social History Narrative Physical Exam: Vital signs reviewed. Most Recent Vitals: 10/07/17 1353 BP: 127/66 Pulse: 64 Resp: 18 Normal Except General: - No apparent distress Eyes: - Conjunctivae without injection; - No eyelid swelling ENT: - No erythema of the tympanic membranes - Normal external ear canals - Nl nasal mucosa, septum, and turbinates; - Oropharynx well hydrated without lesions or exudates; - Face & sinuses non-tender to palpation/percussion Neck: - Symmetrical, no masses, trachea midline; Resp: - Unlabored breathing with symmetrical and equal bilateral expansion; - CTA w/o wheezes, rales, or rhonchi; CV: - Regular rate and rhythm - No pedal swelling GI: - Abdomen soft - Bowel sounds present - No hepatosplenomegaly Lymph: - No significant cervical, supraclavicular or infraclavicular lymphadenopathy Musculoskeletal: - Nl gait and station Extremities: - No clubbing, cyanosis, or edema Skin: - No rashes Neuro/Psych: - Nl and age appropriate mood and affect - Judgement and insight intact Tests or Procedures: Impression Report Plan: # Chronic urticaria # Angioedema # on aspirin at home # Fatigue - Hives and angioedema improved since her last visit. Skin biopsy negative for urticarial vasculitis. Most cases of urticaria are idiopathic. Reviewed additional lab work which included normal/ negative SPEP, Thyroid autoantibodies- TPO and thyroglobulin. C3, C4 and C1q levels. G6PD testing was negative. - Discussed sedative effect and fatigue related to antihistamines. Will try to taper down antihistamine use to see if fatigue improves. -Decrease his Zyrtec to 10 mg nightly -Continue loratadine 10 mg nightly -Continue ranitidine 150 mg twice daily -Continue montelukast 10 mg nightly -Discontinue diphenhydramine nightly. Continue diphenhydramine 25 mg every 6 hours as needed for hives or pruritus. - Reviewed sedative effect of antihistamines ie diphenhydramine, cetirizine, loratadine, fexofenadine - Always have epinephrine autoinjector available. Call 911 and to to the local Er after administering it. - Avoid NSAIDs, except aspirin. - Avoid friction, hot showers, alcohol and foods that contain or release histamine. Return in about 4 weeks (around 11/04/2017), or if symptoms worsen or fail to improve, for chronic urticaria. eDH record was reviewed. Written instructions were reviewed and provided to the patient. No learning barriers were identified. The risks, benefits, alternatives and indications for the use of mediations prescribed or recommended during today's visit were reviewed with the patient. The patient understood and agreed with what was discussed. All questions were answered. documented in this encounter Plan of Treatment Not on filedocumented as of this encounter Visit Diagnoses Diagnosis Chronic urticaria Other specified urticaria Angioedema, subsequent encounter On aspirin at home Fatigue, unspecified type documented in this encounter Care Teams Historiography Professor Relationship Specialty Start Date End Date Shawna Couch MD PCP - General Family Medicine 02/16/17 [address] [place] [address] documented as of this encounter
--- OUTSIDE RECORDS SUMMARY | 2022-03-07 01:38 | XMS_ITS | Encounter Summary ---
:1940 [address] [facility] [place] [address] Care Team Providers Name Role Phone Shawna Couch MD Primary Care Provider Reason for Visit Reason Onset Date Comments Oxygen Dependence 12/17/2020 Overnight pulse oxim etry orders Encounter Details Date Type Department Care Team Description 12/17/2020 Telephone Pulmonology at [facility] Da Oxygen Dependence [facility] Leslie Conn ([place] [address] S, RN oximetry orders) [phone] Social History Tobacco Use Types Packs/Day Years Used Date Never Smoker Smokeless Tobacco: Never Used Alcohol Use Standard Drinks/Week Comments No 0 (1 standard drink = 0.6 oz pure alcoho l) Sex Assigned at Date Recorded Not on file documented as of this encounter Miscellaneous Notes Telephone Encounter - Fabien Roberson RN - 12/17/2020 12:19 PM EDT Faxed completed Overnight pulse oximetry order signed by Dr. Haider, to [employer]. Attached to this was a copy of the following: Note from Dr. Haider indicating testing to be done on CPAP with current settings. Patient Demographics Fax submission confirmation time stamped for 12/17/2020 @ 8231. 6 pages with cover sheet. documented in this encounter Plan of Treatment Not on filedocumented as of this encounter Visit Diagnoses Not on filedocumented in this encounter Care Teams Product Support Rep Relationship Specialty Start Date End Date Shawna Couch MD PCP - General Family Medicine 02/16/17 [address] [place] [address] documented as of this encounter
--- OUTSIDE RECORDS SUMMARY | 2022-03-07 01:38 | XMS_ITS | Encounter Summary ---
:1940 Author Organization [facility] [place] [address] Care Team Providers Name Role Phone Shawna Couch MD Primary Care Provider Reason for Visit Reason Comments Urticaria Encounter Details Date Type Department Care Team Description 11/06/2017 Office Visit Allergy at [facility] Apple Dawkins, Chronic urticaria; [facility] Angioedema, subsequent encounter; [facility] On aspirin at home; [place], [place] Fatigue, unspecified type [id number] ALLERGY AND [phone] IMMUNOLOGY [place], [place] [address] Social History Tobacco Use Types Packs/Day Years Used Date Never Smoker Smokeless Tobacco: Never Used Alcohol Use Standard Drinks/Week Comments No 0 (1 standard drink = 0.6 oz pure alcoho l) Sex Assigned at Date Recorded Not on file documented as of this encounter Last Filed Vital Signs Vital Sign Reading Time Taken Comments Blood Pressure 129/62 11/06/2017 1:49 PM EDT Pulse 68 11/06/2017 1:49 PM EDT Temperature - - Respiratory Rate - - Oxygen Saturation - - Inhaled Oxygen Concentration - - Weight 66.7 kg (147 lb) 11/06/2017 1:49 PM EDT Height 170.2 cm (5' 7) 11/06/2017 1:49 PM EDT Body Mass Index 23.02 11/06/2017 1:49 PM EDT documented in this encounter Patient Instructions Patient InstructionsElias, Apple K, MD - 11/06/2017 2:00 PM EDT - Continue loratadine ( Claritin) 10mg nightly - Continue Zantac 150mg twice daily - Continue montelukast 10mg nightly for the next month. If hives are well controlled, then discontinue the montelukast. If hives recur, then restart the montelukast. - Continue Benadryl 25mg every 6 hours as [...] encounter Progress Notes Apple Dawkins MD - 11/06/2017 2:00 PM EDT Chief Complaint Patient presents with ??? Urticaria HPI. Hoda Peoples Is here today for a follow up visit. Last encounter in this section was on 09/04/2017 # Chronic urticaria # Angioedema # On aspirin at home The patient has been gradually tapering down her medications She has been able to discontinue the Zyrtec and diphenhydramine. She tried stopping the loratadine, but hives recurred after three days. Sherestarted the Claritin and the hives resolved. No additional urticarial flares. Her current medications include: Loratadine 10mg once daily, ranitidine 150mg twice daily and montelukast 10mg nightly. She feels her fatigue significantly improved when she discontinued the cetirizine. The patient had a skin biopsy of [...] Outpatient Prescriptions Marked as Taking for the 11/06/17 encounter (Office Visit) with Apple Dawkins MD Medication Sig Dispense Refill ??? loratadine (CLARITIN) 10 mg Tablet Take 10 mg by mouth nightly. ??? cholecalciferol, Vitamin D3, 1,000 unit Capsule [...] use as directed by prescriber 0 ??? propranolol (INDERAL) 10 mg Tablet Take 10 mg by mouth 2 times daily. ??? aspirin 81 mg Tablet, Delayed Release (E.C.) Take 81 mg by mouth every other day. ??? fish oil-omega-3 fatty acids 1,000 mg Capsule Take 2 g by mouth daily. ??? docusate sodium (COLACE) 50 mg Capsule Take by mouth 2 times daily. ??? MULTIVIT WITH CALCIUM,IRON,MIN (WOMEN'S DAILY MULTIVITAMIN ORAL) Take by mouth daily. ??? montelukast (SINGULAIR) 10 mg Tablet Take 1 tablet by mouth nightly. 30 tablet 12 ??? ranitidine (ZANTAC) 150 mg Tablet Take 1 tablet by mouth 2 times daily. 60 tablet 11 ??? midodrine (PROAMATINE) 5 mg Tablet 2 times daily. ??? rOPINIRole (REQUIP) 0.25 mg Tablet 0.5 [...] Exam: Vital signs reviewed. Most Recent Vitals: 11/06/17 1349 BP: 129/62 Pulse: 68 PainSc: 0 - No pain Normal Except General: - No apparent distress [...] No hepatosplenomegaly Lymph: - No significant cervical, supraclavicular, infraclavicular, axillary or inguinal lymphadenopathy Musculoskeletal: - Nl gait and station [...] C1q levels. G6PD testing was negative. - Fatigue improved with decreased antihistamine use. Discussed sedative effect and fatigue related to antihistamines. - Continue loratadine ( Claritin) 10mg nightly - Continue Zantac 150mg twice daily - Continue montelukast 10mg nightly for the next month. If hives are well controlled, then discontinue the montelukast. If hives recur, then restart the montelukast. - ??Continue Benadryl 25mg every 6 hours as needed for hives or itchiness - Reviewed sedative effect of antihistamines ie diphenhydramine, cetirizine, loratadine, fexofenadine - Always have epinephrine autoinjector available. Call 911 and to to the local Er after administering it. - Avoid NSAIDs, except aspirin. - Avoid friction, hot showers, alcohol and foods that contain or release histamine. Return in about 3 months (around 02/05/2018), or if symptoms worsen or fail to [...] type documented in this encounter Care Teams Coil Former Relationship Specialty Start Date End Date Shawna Couch MD PCP - General Family Medicine 02/16/17 [address] [place] [address] documented as of this encounter
--- OUTSIDE RECORDS SUMMARY | 2022-03-07 01:38 | XMS_ITS | Encounter Summary ---
:1940 Author Organization [facility] [place] [address] Care Team Providers Name Role Phone Shawna Couch MD Primary Care Provider Reason for Visit Consultation (Routine) - Closed Specialty Diagnoses / Procedures Referred By Contact Refer red To Contact Pulmonology Diagnoses SOB (shortness of breath) Other forms of dyspnea Racheal Mahajan MD [facility] Pulmonology 5c [facility] GENERAL INTERNAL [place], [place] [phone] [place] [address] Referral ID Status Reason Start Date Expiration Date Visits V isits Requested Authorized [id number] Closed Consult, Test 12/02/2020 12/02/2021 6 [facility] PCP Updated and/or Approved Encounter Details Date Type Department Care Team Description 12/17/2020 TH Visit Pulmonology at [place] Darrick Haider I, RENY on CPAP (TeleHealth) [facility] [place] [address] [facility] [phone] DR RADAMES CHAVEZ [place], [place] [address] (Wo rk) Social History Tobacco Use Types Packs/Day Years Used Date Never Smoker Smokeless Tobacco: Never Used Alcohol Use Standard Drinks/Week Comments No 0 (1 standard drink = 0.6 oz pure alcoho l) Sex Assigned at Date Recorded Not on file documented as of this encounter Progress Notes Darrick Haider MD - 12/17/2020 10:00 AM EDT Images from the original note were not included. SECTION OF PULMONARY AND CRITICAL CARE?? Pulmonary [place] [address] Telehealth New Consultation Consulted by Shawna Couch MD to evaluate this patient for dyspnea and fatigue. I have personallyinterviewed the patient on 12/17/2020, and reviewed the patient's radiographic studies and laboratory data. HPI: In brief, Hoda Peoples is a 80 y.o. female with who complains of mild to moderate dyspnea which is come on over the past 6 to 9 months, occasionally associated with wheezing, and no cough. She had a cardiac stress test, and echocardiogram, pulmonary function studies, and she is convinced that her respiratory status declined dramatically from the time of her PFTs to the present. Similarly her fatigue dramatically worsened at the same point in time. She was seen in the ED at , and nothing wasfound. She has obstructive sleep apnea and is on CPAP every night (settings from 2010), and she states that she wakes up tired every morning. She does not endorse daytime somnolence. She has no constitutional symptoms, though she does have a history of anxiety, depression, dementia, and is on multiplepsychoactive medications. Her pulmonary function studies which apparently triggered the decline werelargely normal, with a slight decrement in diffusing capacity. She had an echocardiogram which was un remarkable, without evidence of PAH (RVSP of 28). Stress test she had in the fall was unrevealing, and subsequent labs more recently have also been unrevealing. Her had a recent stroke, and sheis distraught about the possibility that she may have contributed to it by forgetting to give him his aspirin (she currently complains of brain fog). She has peripheral neuropathy and restless leg [...] reaction to it. She has never smoked. PAST MEDICAL HISTORY: Patient Active Problem List [...] as needed PRN ??? cyanocobalamin/folic acid (Vitamin J73-Biuip Acid) 500-400 mcg Tablet Daily ??? mirtazapine (Remeron) 15 mg Tablet 1 tablet. ??? estradioL (ESTRACE) 0.01 % (0.1 mg/gram) Cream ??? famotidine (Pepcid) 20 mg Tablet ??? gabapentin (Neurontin) 300 mg Capsule ??? loratadine (CLARITIN) 10 mg Tablet Take [...] Reported on 09/04/2017) 25 tablet 0 ??? omega 7-csi-qxk-fish oil 600 mg-216 mg- 324 mg-1,200 mg [...] Urticaria Neg Hx ??? Angioedema Neg Hx SOCIAL HISTORY: Social History Socioeconomic History ??? [...] Strain: ??? Difficulty of Paying Living Expenses: Food Insecurity: ??? Worried About Running Out of Food in the Last Year: ??? Ran Out of Food in the Last Year: Transportation Needs: ??? Lack of Transportation (Medical): ??? Lack of Transportation (Non-Medical): Physical Activity: ??? Days of Exercise per Week: ??? Minutes of Exercise per Session: Never smoker. Review of Systems: See HPI (otherwise negative x10) PHYSICAL EXAM-deferred Most Recent Chest Radiograph was [...] who have questions please contact the health career services assistant that requested your imaging first. Electronically signed by: ISA BENITEZ MD, [facility] ([phone]), at 12/02/2020 3:05 PM I have personally reviewed the recent PFTs: Normal spirometry, a total lung capacity of 86% predicted (without air trapping). Diffusing capacity of 66% pred. IMPRESSION: In summary, this is a 80 y.o. female with a rather curious history of gradual onset of dyspnea and fatigue/exhaustion, both of which appear to have intensified significantly just since her pulmonary function studies. Though she has a slight decrement in her diffusing capacity, there is little to suggest pulmonary hypertension or early interstitial lung disease, though in the absence of a noncontrast chest CT (with a low quality portable chest x-ray) it would be difficult to be certain about this, but there is no history to suggest that she desaturates with exertion and her resting saturations that have been documented are quite good. She is somewhat distraught, rather tangential, and it is difficult to extract a clear history, though the one thing she clearly endorses is that she wakes up in the morning feeling as though she is not rested and is very tired. I suspect that she may have some [...] is a physiologic basis for her dyspnea. Follow- up after the overnight testing to be arranged through [facility]. Telehealth visit: 60 minutes documented in this encounter Plan of Treatment Not on filedocumented as of this encounter Visit Diagnoses Diagnosis RENY on CPAP Obstructive sleep apnea (adult) (pediatr ic) documented in this encounter Care Teams Fuel Quality Tech Relationship Specialty Start Date End Date Shawna Couch MD PCP - General Family Medicine 02/16/17 [address] [place] [address] documented as of this encounter
--- OUTSIDE RECORDS SUMMARY | 2022-03-07 01:38 | XMS_ITS | Encounter Summary ---
:1940 Author Organization [facility] [place] [address] Care Team Providers Name Role Phone Shawna Couch MD Primary Care Provider Reason for Visit Reason Comments Diplopia Consultation (Routine) - Closed Specialty Diagnoses / Procedures Referred By Contact Refer red To Contact Ophthalmology Diagnoses diplopia, decreasing best corrected vision, visual acuity Deny Patricia, KAMAR Encinas, [address] [place] [address] [facility] OPHTHALMOLOGY DEPT [place], [place] [address] Phone: Fax: Referral ID Status Reason Start Date Expiration Date Visits V isits Requested Authorized [id number] Closed Consult, 09/05/2021 09/05/2022 1 1 Test & Treat Encounter Details Date Type Department Care Team Description 12/23/2021 Office Visit Ophthalmology at [facility] Noni Dillon MD [facility] [place] [address] Convergence insufficiency; [facility] [place] [address] Social History Tobacco Use Types Packs/Day Years Used Date Never Smoker Smokeless Tobacco: Never Used Alcohol Use Standard Drinks/Week Comments No 0 (1 standard drink = 0.6 oz pure alcoho l) Sex Assigned at Date Recorded Not on file documented as of this encounter Progress Notes Noni Encinas MD - 12/23/2021 1:00 PM EDT Hoda Peoples is a 81 y.o. female referred by Deny Patricia for evaluation of diplopia. Patient reports constant binocular diplopia at near that started 1-2 years ago. 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 The intraocular pressures were normal in e ach eye. Static visual benito were full bilaterally with a few temporal depressed points in the right eye and inferior depressed points in the left eye with poor reliability. Sensorimotor examination revealed full extraocular movements in each eye. Hoda Peoples has an exotropia of 1-2 PD in most dire ctions of gaze. At near, she has an intermittent exotropia of up to 14 PD. Dilated eye examination revealed normal anterior segment structures. The optic nerves are healthy and pink. The maculae and peripheral retina was normal in each eye. The OCT revealed average RNFL of both optic nerves of 111 in the right eye and 103 in the left eye. 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 She has a separate reading Rx with 2 Base In in each lens (total of 4 PD ground in for CI), which is adequately controlling her CI. - We placed a 5 Base In fresnel over the bottom portion of her bifocal lens. Did explain to her thatit is not possible to have it ground into her bifocal glasses and that it would be better for her touse her full frame reading glasses. - She understands that if she is not happy with the distortion of the fresnel, she can remove this. 2) ERM - Mild, observe 3) Dry Eyes - Advised to use preservative free artificial tears, four to six times a day, as well as lubricatingointment at night for her dry eyes. RTC 6 months with [facility], diplopia clinic I, Kadi Jean-Baptiste, have performed the documentation for this encounter in the presence of and acting as a scribe for Noni Encinas MD. I performed the services which were documented by the scribe, and I agree with the accuracy of the documentation in this encounter. Noni Encinas MD documented in this encounter Plan of Treatment [...] in OU- BOTH EYES the results section. documented in this encounter Results Sensorimotor Exam [Pr Special Eye Exam] - OU - Both Eyes (12/23/2021 4:13 PM EDT) Anatomical Region Laterality Modality Other Specimen (Source) Anatomical Location Collection Method / Collectio n Time Received Time / Laterality Volume Narrative 12/23/2021 4:13 PM EDT Sensorimotor examination revealed full extraocular movements in each eye. Hoda Peoples has an exotropia of 1-2 P D [...] Right Eye Quality was good. Findings include amnas l observations. Temporal thickness was normal. Superior thickness was manas l. Nasal thickness was normal. Inferior thickness was normal. Left Eye Quality was good. Findings include manas l observations. Temporal thickness was normal. Superior thickness was manas l. Nasal thickness was normal. Inferior thickness was normal. 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
--- OUTSIDE RECORDS SUMMARY | 2022-03-07 01:38 | XMS_ITS | Encounter Summary ---
:1940 Author Organization [facility] [place] [address] Care Team Providers Name Role Phone Shawna Couch MD Primary Care Provider Encounter Details Date Type Department Care Team Description 06/26/2021 Telephone Gastroenterology at [facility] [place] [address] Social History Tobacco Use Types Packs/Day Years Used Date Never Smoker Smokeless Tobacco: Never Used Alcohol Use Standard Drinks/Week Comments No 0 (1 standard drink = 0.6 oz pure alcoho l) Sex Assigned at Date Recorded Not on file documented as of this encounter Miscellaneous Notes Telephone Encounter - Paulina Townsend - 06/28/2021 3:41 PM EST Incoming call from Janet in Rehab Medicine, with patient on back of the line. Janet states she checked with their provider and they said their portion of the test was completed and nothing further was needed on their end. Patient, however, states that she didn't know she needed to fast and they told her she would still need to come back for the second half of the test. Dr. Restrepo, would you mind reviewing to see if there is any further testing patient still needs scheduled/performed? I told her we would call her back once we got some further clarification. Telephone Encounter - Idalmis Meeks - 06/26/2021 4:22 PM EST Patient call transferred to GI from IR. Patient states that she was not able to complete her Barium Swallow. The patient states that she was told by someone that she needed to return for the second half of the test. There is no documentation that this underwriter mortgage loan can see from this department. A call was placed to Speech Therapy. A note is going to be sent to one of the Physical Therapists tosee if they are aware that the patient needs to return to finish a test. Speech will out to the patient directly when they have an answer. The call with GI was disconnected before the patient could be informed. Attempted phoning patient back but it went to voicemail. documented in this encounter Plan of Treatment Not on filedocumented as of this encounter Visit Diagnoses Not on filedocumented in this encounter Care Teams Button Grader Relationship Specialty Start Date End Date Shawna Couch MD PCP - General Family Medicine 02/16/17 [address] [place] [address] documented as of this encounter
--- OUTSIDE RECORDS SUMMARY | 2022-03-07 01:39 | XMS_ITS | Encounter Summary ---
:1940 Author Organization [facility] [place] [address] Care Team Providers Name Role Phone Shawna Couch MD Primary Care Provider Encounter Details Date Type Department Care Team Description 08/12/2017 Telephone Allergy at [facility] [place] [address] Social History Tobacco Use Types Packs/Day Years Used Date Never Smoker Smokeless Tobacco: Never Used Alcohol Use Standard Drinks/Week Comments No 0 (1 standard drink = 0.6 oz pure alcoho l) Sex Assigned at Date Recorded Not on file documented as of this encounter Miscellaneous Notes Telephone Encounter - Kiarra Landaverde LPN - 08/12/2017 12:00 PM EST Went over Dr Matta's order's for the liquid zyrtec dose with the increase to zyrtec 20mg [address] Rodriguez is aware that it is over the recommended dose per metal sprayer machined parts guidelines. Singulair that was dispensed by Pharmacy was a 90 day supply instead of a 30 day supply FYI per Pharmacy. Called patient back to let her know that we have talked to the pharmacy about her prescriptions message left on identified voice mail. Any questions to please call back. Telephone Encounter - Kiarra Landaverde LPN - 08/12/2017 12:00 PM EST ----- Message from Maira Medel sent at 08/12/2017 9:18 AM EST ----- Contact: [facility] was calling because they need clarification on a prescription that was sent on 07/27. They can be reached at . documented in this encounter Plan of Treatment Not on filedocumented as of this encounter Visit Diagnoses Not on filedocumented in this encounter Care Teams Cornetist Relationship Specialty Start Date End Date Shawna Couch MD PCP - General Family Medicine 02/16/17 [address] [place] [address] documented as of this encounter"
--- OUTSIDE RECORDS SUMMARY | 2022-03-07 01:39 | XMS_ITS | Encounter Summary ---
:1940 Author Organization [facility] [place] [address] Care Team Providers Name Role Phone Yaritza Rodriguez APRN Primary Care Provider Reason for Visit Reason Comments Anxiety Mild Cognitive Impairment Encounter Details Date Type Department Care Team Description 10/14/2016 Office Visit Psychiatry and Behavioral Irma Weir MD Anxiety Health at [facility] Leslie [place] [address] [place] [address] [phone] (Wo rk) Social History Tobacco Use Types Packs/Day Years Used Date Never Smoker Alcohol Use Standard Drinks/Week Comments No 0 (1 standard drink = 0.6 oz pure alcoho l) Sex Assigned at Date Recorded Not on file documented as of this encounter Progress Notes Irma Albarran MD - 10/14/2016 12:30 PM EDT [facility] FOLLOW UP NOTE ? Time Spent: 40 minutes ? Attendee(s): patient ? This patient was seen and discussed with teaching faculty (name) .; see attending's note for confirmatory and/or revisionary documentation. ? HISTORY ? Chief Complaint/Reason for visit: Hoda Peoples is a 76 y.o. woman w/hx of mild cognitive impairment and anxiety and depression who presents to the clinic for follow up and medication check. INTERVAL HISTORY SINCE LAST VISIT: -Sleep study on 09/10/16 : moderate to severe RNEY, severe periodic limb movement disorder, very poor sleep efficiency. Pt was scheduled to get her CPAP machine adjusted. - Pt reports that she founds taking mirtazapine in the morning does help her with sleep at night anddoes not make her feel groggy during the day. She likes to continue taking it in the morning as she did not noticed any adverse effect from that. She reports feeling physically better, more energetic, started biking, eating healthy and that makes her feel good. She reports that she is no longer taking trazodone and melatonin and continues to avoid benadryl and ativan. She noticed improvement in herdriving skills after she was put on Exelon patch and would like to continue taking it. No c/o or evidence of anxiety, depression, alejandro or psychosis. Denies SI, Hi, AVH. Changes as compared to last visit in this clinic: Functional Abilities (bathing, toileting; grooming, dressings; eating habits, manners; using mechanical or electronic devices; driving; doing household tasks):no changes. Social Skills: (conversation; involvement with family, friends; cooperation; awareness in social settings; interest in hobbies/leisure activities):no changes. Cognition (remembering names and events; finding words; keeping track of time; awareness of the environment; ability for follow instructions):no changes. Mood and Behavioral Symptoms (depression, sadness; irritability; loss of interest in activities; social withdrawal; apathy; sleep difficulties; appetite changes; paranoia; hallucinations; delusions; agitation/aggression; suicidal feelings; wandering; problems with judgment; inappropriate behavior; awareness of behavioral symptoms; cooperativeness with care/treatment):see HPI. Other Concerns of Changes: (awareness of illness; ability/willingness to discuss symptoms, illness) none at present. Caregiver Coping and related Considerations (describe): N/A Current Medications: Current Outpatient Prescriptions Medication Sig Dispense Refill ??? midodrine (PROAMATINE) 2.5 mg Tablet Take 5 mg by mouth 2 times daily. ??? rOPINIRole (REQUIP) 1 mg Tablet Take 1 mg by mouth nightly. ??? mirtazapine (REMERON) 15 mg Tablet Take 1 tablet by mouth nightly (Patient taking differently: 1tablet QAM) 30 tablet 3 ??? rivastigmine (EXELON) 4.6 mg/24 hr Patch 24 hr 1 patch on skin every other day 90 patch 1 ??? meclizine (ANTIVERT) 25 mg tablet Take 25 mg by mouth 2 times daily as needed. ??? alendronate (FOSAMAX) 70 mg tablet Take 70 mg by mouth every 7 days. Take in the morning with a full glass of water, on an empty stomach, and do not take anything else by mouth or lie down for the next 30 min. No current facility-administered medications for this visit. Pertinent Medication Side Effects: Denies. Review of Systems: (07/14/09) Constitutional: Eyes: ENT: Cardiovascular: Respiratory: GI: : Musculoskeletal: Integumentary: Neurological: Psychiatric: See HPI above Endocrine: Hematologic/Lymphatic: Allergic/Immunological: See reviewed allergies PFSH: () Past Medical/Psychiatric History: Family Psychiatric and Medical History: Social History: EXAM [12/19/13 bullets (incl VS)] Constitutional System ? Vital Signs: There were no vitals taken for this visit. Musculoskeletal System ? Muscle Strength/Tone (note atrophy, abnormal movements): ? Gait and Station: ? Psychiatric System/MSE ? General Appearance/Behavior: good hygiene, causally groomed, pleasant, cooperative and friendly attitude. ? Speech: normal rate and tone ? Thought Process: linear and goal directed ? Associations: intact ? Abnormal Thoughts and Perceptions / Thought Content: Homicidality / Violent Thoughts: denies Suicidality: denies Hallucinations: denies Delusions: denies Obsessions: denies ? Judgment and Insight: good/good ? Mood & Affect: good, congruent with mood ? Attention/Concentration: fair/fair ? Language: fluent Tunisian ? Fund of Knowledge: good ? Cognitive Examination:Alert and oriented x3 ? MEDICAL DECISION MAKING ASSESSMENT: Hoda Peoples is a 76 y.o. woman w/hx of mild cognitive impairment and anxiety and depression who presents to the clinic for follow up and medication check. Pt was dx recently withOSA , severe and is going to start the CPAP machine. Educated the pt about the effect of RENY on moodand cognition and encouraged to continue to f/up with the sleep clinic. Reported improvement in pt'sdriving skills after she was put on Exelon patch and will continue the treatment. Pt wants to continue taking mirtazapine in the morning and finds this more helpful in improving her sleep with out day time sedation. I explained to the pt that the usual timing is at bed time because the sedation, however I do not have reservation on taking it in the morning as long as she is not having day time sedation and is not taking it when she drives any vehicle. Will see the pt after she gets her CPAP machine adjusted and will check her MOCA test for f/up. PLAN: Continue mirtazapine 15 po qhs D/C melatonin 10 mg Continue Exelon patch Encourage healthy diet and exercise Discussed the sleep hygiene and encourage the pt to follow them Will scan sleep study report in the edh ? Patient Instruction/Education provided: Patient/caregiver provided written and verbal instructions regarding medication management and follow up appt.. ? Patient/caregiver understands the plan? Yes ? Follow Up:4-6 weeks Santos Bean MD - 10/14/2016 12:30 PM EDT Case discussed with Dr. Albarran, patient seen. Looks brighter, and seems encouraged about starting CPAP. I reinforced the importance of it, expecially vis-a-vis treating depressive Sx and preventing progressive cogntive decline, which she is highly motivated to do. Also cautioned her about challengesfinding right apparatus to make the CPAP tolerable and the importance of not giving up on it but working with the vendor until she is comfortable and successful using it. documented in this encounter Plan of Treatment Not on filedocumented as of this encounter Visit Diagnoses Diagnosis Anxiety Anxiety state, unspecified documented in this encounter Care Teams Printed Circuit Designer Relationship Specialty Start Date End Date Yaritza Rodriguez APRN PCP - General 06/04/10 02/15/17 documented as of this encounter
--- OUTSIDE RECORDS SUMMARY | 2022-03-07 01:39 | XMS_ITS | Encounter Summary ---
:1940 Author Organization [facility] [place] [address] Care Team Providers Name Role Phone Shawna Couch MD Primary Care Provider Reason for Visit Reason Onset Date Comments Medication Refill 01/28/2017 Encounter Details Date Type Department Care Team Description 01/28/2017 Refill Psychiatry and Behavioral Carole Milan MD [facility] [address] [place] [address] [place] [address] [phone] (Wo rk) Social History Tobacco Use Types Packs/Day Years Used Date Never Smoker Alcohol Use Standard Drinks/Week Comments No 0 (1 standard drink = 0.6 oz pure alcoho l) Sex Assigned at Date Recorded Not on file documented as of this encounter Plan of Treatment Not on filedocumented as of this encounter Visit Diagnoses Not on filedocumented in this encounter Care Teams Lpn Home Health Relationship Specialty Start Date End Date Shawna Couch MD PCP - General Family Medicine 02/16/17 [address] [place] [address] documented as of this encounter
--- OUTSIDE RECORDS SUMMARY | 2022-03-07 01:39 | XMS_ITS | Encounter Summary ---
:1940 Author Organization [facility] Address [address] [place] [address] Care Team Providers Name Role Phone Shawna Couch MD Primary Care Provider Reason for Referral Consultation (Routine) - Closed Specialty Diagnoses / Procedures Referred By Contact Refer red To Contact Dermatology Diagnoses Chronic urticaria Randa Rodriguez MD [facility] Dermatology [facility] [address] [place] [address] [place] [address] Referral ID Status Reason Start Date Expiration Date Visits V isits Requested Authorized [id number] Closed Consult, 07/20/2017 07/20/2018 1 1 Test & Treat Reason for Visit Reason Comments Follow-up Allergic Reaction Encounter Details Date Type Department Care Team Description 07/20/2017 Office Visit Allergy at [facility] Randa Rodriguez MD Chronic urticaria; [facility] ioedema, subsequent encounter Drive [place] [address] [place] [address] Social History Tobacco Use Types Packs/Day Years Used Date Never Smoker Smokeless Tobacco: Never Used Alcohol Use Standard Drinks/Week Comments No 0 (1 standard drink = 0.6 oz pure alcoho l) Sex Assigned at Date Recorded Not on file documented as of this encounter Last Filed Vital Signs Vital Sign Reading Time Taken Comments Blood Pressure 118/63 07/20/2017 3:37 PM EST Pulse 59 07/20/2017 3:37 PM EST Temperature - - Respiratory Rate - - Oxygen Saturation - - Inhaled Oxygen Concentration - - Weight 66.7 kg (147 lb) 07/20/2017 3:37 PM EST Height 170.2 cm (5' 7) 07/20/2017 3:37 PM EST Body Mass Index 23.02 07/20/2017 3:37 PM EST documented in this encounter Patient Instructions Patient InstructionsRanda Rodriguez MD - 07/20/2017 4:00 PM EST 1) see dermatology to evaluate the bright red lesions you showed me in your photos. They will likelyhave you come back to biopsy those lesions if they occur again 2) get lab testing today to screen for inflammation 3) will increase your antihistamines: - increase zyrtec to 20mg twice a day - continue ranitidine 150mg twice a day - continue singulair 10mg at night If 2 weeks go by and you are still getting hives, ADD hydroxyzine 25mg at night. 4) Recommend starting Xolair (omalizumab) monthly after being evaluated by dermatology. This is the safest treatment option when antihistamines are not working Xolair side effects: potential increased cardiovascular risk (1-2%), anaphylaxis (rare); no lab monitoring required Cyclosporine side effects: high blood pressure (common), kidney problems (common); requires frequentlab monitoring Hydroxychloroquine side effects: cardiomyopathy, retinal problems (frequency not defined); requires lab monitoring Return in 3 months documented in this encounter Progress Notes Randa Rodriguez MD - 07/20/2017 4:00 PM EST CC: follow up HPI: Hoda Peoples is a 77 y.o. female with a PMH of chronic urticaria and angioedema presenting for follow up of hives. She was first seen by me on June 19, 2017. At that time I recommended starting Zyrtec 10 mg twice a day, ranitidine 150 mg twice a day, and Singulair 10 mg at night to control her hives. She is taking these as directed and reports that the combination has made her somewhat fatigued, butaldair is getting used to that. She states that she is still breaking out with hives, but the episodes tend to be milder overall. However, she has had 2 episodes where the hives were very severe. She has pictures today. She states that she experienced patches on her legs that were severely itchy and alsovery painful. These lesions also had a bright red ring around them. The lesions were painful enough that she could not let clothing touch the skin there. These lasted for days and left bruised patches.As far as the milder hives, she says these sometimes leave purplish moore as well. The hives are stil l occurring multiple times a week. She has not had any angioedema since her last visit. She shows me pictures of large, typical-appearing urticarial plaques in February and May. However, two patches in June are different - there is a bright red ring around the patches in one photo and in another the lesions are violaceous and erythematous. She has not had fevers, chills, night sweats. No increase in baseline joint pains. PCP checked TSH, B12, and iron per patient and it was normal. ROS is per HPI otherwise negative. Patient Active Problem List Diagnosis Code ??? Mild cognitive impairment G31.84 ??? Anxiety disorder F41.9 ??? Mood disorder F39 Past Medical History: Diagnosis Date ??? Alzheimer disease ??? Angio-edema ??? Anxiety disorder ??? Depression ??? Hypertension ??? Macular degeneration ??? Osteoporosis ??? Restless legs ??? Seizure disorder ??? Spinal compression fracture ??? Urticaria ??? Vertigo Past Surgical History: Procedure Laterality Date ??? CATARACT REMOVAL ??? SECTION ??? DILATION AND CURETTAGE OF UTERUS ??? TUBAL LIGATION ??? cetirizine (ZYRTEC) 1 mg/mL Solution ??? aspirin 81 mg Tablet, Delayed Release (E.C.) ??? fish oil-omega-3 fatty acids 1,000 mg Capsule ??? magnesium 250 mg Tablet ??? MULTIVIT WITH CALCIUM,IRON,MIN (WOMEN'S DAILY MULTIVITAMIN ORAL) ??? montelukast (SINGULAIR) 10 mg Tablet ??? ranitidine (ZANTAC) 150 mg Tablet ??? midodrine (PROAMATINE) 5 mg Tablet ??? mirtazapine (REMERON) 15 mg Tablet ??? rivastigmine (EXELON) 4.6 mg/24 hr Patch 24 hr ??? alendronate (FOSAMAX) 70 mg tablet ??? hydrOXYzine (ATARAX) 25 mg Tablet ??? LORazepam (ATIVAN) 1 mg Tablet ??? EPINEPHrine 0.3 mg/0.3 mL Auto-Injector ??? propranolol (INDERAL) 10 mg Tablet ??? Simethicone (GAS-X) 125 mg Capsule ??? docusate sodium (COLACE) 50 mg Capsule ??? clobetasol (TEMOVATE) 0.05 % Cream ??? rOPINIRole (REQUIP) 0.25 mg Tablet No Known Allergies Family History Problem Relation Age of Onset ??? Dementia Mother ??? Allergic Rhinitis Other ??? Asthma Other Social History Social History ??? Marital status: Spouse name: N/A ??? Number of children: N/A ??? Years of education: N/A Occupational History ??? Not on file. Social History Main Topics ??? Smoking status: Never Smoker ??? Smokeless tobacco: Never Used ??? Alcohol use No ??? Drug use: No ??? Sexual activity: Not on file Other Topics Concern ??? Not on file Social History Narrative PHYSICAL EXAM: BP 118/63 Pulse 59 Ht 170.2 cm (5' 7) Wt 66.7 kg (147 lb) BMI 23.02 kg/m2 Gen: AAOx3, no acute distress HEENT: Tympanic membranes clear, no lesions, erythema, or drainage. Conjunctiva not injected. Nasal passages show pink turbinates bilaterally. OP clear without erythema or cobblestoning. NECK: supple, no lymphadenopathy CVS: RRR, no m/r/g LUNGS: CTAB, no wheezing or rales ABD: soft, non-tender, non-distended SKIN: faded, erythematous patches over antecubital fossae bilaterally, no active urticaria today EXTREMITIES: warm and well-perfused, no edema ASSESSMENT AND PLAN: 77 y.o. female with chronic urticaria and angioedema with several lesions over the past month that have been very painful, lasting longer, bruising. Photos up until June show typical urticarial plaques but she has a few photos with bright red annular lesions and bruising. These were concerning forurticarial vasculitis, which I think needs to be ruled out before we start her on any medications that have the potential to alter any biopsy taken. - see dermatology to evaluate the bright red lesions, recommend ruling out urticarial vasculitis - CMP, ESR, RF, WILMAN, CH50 today - CMP WNL, ESR WNL, RF WNL, WILMAN neg; CH50 pending at note signing. -ELR 07/21/2017 4:49 PM - for treatment, will increase antihistamines: - increase zyrtec to 20mg twice a day - continue ranitidine 150mg twice a day - continue singulair 10mg at night If 2 weeks go by and still getting hives, ADD hydroxyzine 25mg at night. - Recommend starting Xolair (omalizumab) monthly after being evaluated by dermatology. This is the safest treatment option when antihistamines are not working. Reviewed risks and benefits of Xolair, cyclosporine, plaquenil and I think Xolair has the best safety profile. Return in 3 months Randa Rodriguez MD Randa Rodriguez MD - 07/20/2017 4:00 PM EST CH50 WNL. Letter sent. - ELR 07/27/2017 5:37 PM documented in this encounter Plan of Treatment Scheduled Referrals Name Type Priority Associated Order Schedule Diagnoses Referral to Outpatient Referral Routine Chronic urticaria Ord ered: Dermatology 07/20/2017 documented as of this encounter Procedures Procedure Name Priority Date/Time Associated Comments Diagnosis SEDIMENTATION RATE Routine 07/20/2017 5:20 PM Chronic urticari a Results for this EST procedure are i n the results section. RHEUMATOID FACTOR, Routine 07/20/2017 5:20 PM Chronic urticari a Results for this QUANT EST procedure are i n the results section. COMPLEMENT, TOTAL Routine 07/20/2017 5:20 PM Chronic urticaria Results for this EST procedure are i n the results section. WILMAN Routine 07/20/2017 5:20 PM Chronic urticaria Resu lts for this EST procedure are i n the results section. COMPREHENSIVE Routine 07/20/2017 5:20 PM Chronic urticaria Res ults for this METABOLIC PANEL EST procedure ar e in (NON-FASTING) the results section. documented in this encounter Results Complement, Total (07/20/2017 5:20 PM EST) athologist Signature Complement 56 30 - 75 [facility] Total unit/mL [facility] Comment: Test Performed by: [place] [address] Specimen Anatomical Collection Method Collection Time Receive d Time (Source) Location / / Volume Laterality Blood specimen 07/20/2017 5:20 PM 018 9:07 (specimen) EST AM EST Resulting Agency Comment Spec In Lab Randa Rodriguez MD CHEMISTRY ORDERABLES Performing Organization Address City/[facility]/[place] [address] Rheumatoid factor, quant (07/20/2017 5:20 PM EST) athologist Signature RF <10 <=14 IU/mL [facility] Specimen Anatomical Collection Method Collection Time Receive d Time (Source) Location / / Volume Laterality Blood specimen 07/20/2017 5:20 PM 018 5:28 (specimen) EST PM EST Resulting Agency Comment Spec In Lab Randa Rodriguez MD IMMUNOLOGY ORDERABLES Performing Organization Address City/[facility]/[place] [address] WILMAN (07/20/2017 5:20 PM EST) athologist Signature WILMAN Neg Neg [facility] Specimen Anatomical Collection Method Collection Time Receive d Time (Source) Location / / Volume Laterality Blood specimen 07/20/2017 5:20 PM 018 7:32 (specimen) EST AM EST Resulting Agency Comment Spec In Lab Randa Rodriguez MD IMMUNOLOGY ORDERABLES Performing Organization Address City/State/ZIP Code Phon e Number [address] Sedimentation rate (07/20/2017 5:20 PM EST) P athologist Signature Sed Rate 8 0 - 20 [facility] mm/hr [facility] Specimen Anatomical Collection Method Collection Time Receive d Time (Source) Location / / Volume Laterality Blood specimen 07/20/2017 5:20 PM 018 5:28 (specimen) EST PM EST Resulting Agency Comment Spec In Lab Randa Rodriguez MD HEMATOLOGY ORDERABLES Performing Organization Address City/[facility]/ZIP Code Phon e Number [address] (ABNORMAL) Comprehensive metabolic panel (non-fasting) (07/20/2017 5:20 PM EST) athologist Signature Glucose Lvl 90 65 - 199 [facility] mg/dL [facility] Comment: Diabetes: >=200 mg/dL plus symp toms BUN 20 (H) 8 - 18 mg/dL [facility] Creatinine 0.70 0.70 - 1.20 mg/dL [facility] Sodium 138 135 - 145 mmol/L [facility] Potassium 4.0 3.5 - 5.0 mmol/L [facility] Comment: Please note: ??Patients with WBC >100,00 0 may have falsely elevated Potassium levels. ??For accurate Potassium quantif ication in these patients send serum separator tube (gold top) for subsequent determinations. ??Contact the Clinical Chemistry Laboratory if there are any qu estions. Chloride 101 98 - 107 mmol/L [facility] CO2 26 22 - 31 mmol/L [facility] Anion Gap 11 5 - 15 mmol/L [facility] Calcium 8.8 8.5 - 10.5 mg/dL [facility] Total Protein 6.9 6.1 - 8.0 gm/dL [facility] Albumin 4.0 3.2 - 5.2 gm/dL [facility] AST 28 0 - 30 unit/L [facility] ALT 25 0 - 30 unit/L [facility] Alk Phos 48 40 - 104 unit/L [facility] Total Bilirubin 0.2 0.2 - 1.3 mg/dL [facility] Estimated GFR >60 >=60 [facility] Comment: The reported eGFR should be multiplied b y 1.2 for patients. The MDRD is not an appropriate measure o f renal function for patients with body mass extremes or in patients with acute kidney failure. http://[employer]/DHnkdep http://[employer]/DHMCnkf Specimen Anatomical Collection Method Collection Time Receive d Time (Source) Location / / Volume Laterality Blood specimen 07/20/2017 5:20 PM 018 5:28 (specimen) EST PM EST Resulting Agency Comment Spec In Lab Randa Rodriguez MD CHEMISTRY ORDERABLES Performing Organization Address City/State/[place] [address] documented in this encounter Visit Diagnoses Diagnosis Chronic urticaria Other specified urticaria Angioedema, subsequent encounter documented in this encounter Care Teams Hand Edger Relationship Specialty Start Date End Date Shawna Couch MD PCP - General Family Medicine 02/16/17 [address] [place] [address] documented as of this encounter
--- OUTSIDE RECORDS SUMMARY | 2022-03-07 01:39 | XMS_ITS | Encounter Summary ---
:1940 Author Organization [facility] [place] [address] Care Team Providers Name Role Phone Yaritza Rodriguez APRN Primary Care Provider Encounter Details Date Type Department Care Team Description 10/30/2016 Orders Only Psychiatry and Behavioral Irma Weir MD [facility] [place] [address] [place] [address] [phone] ( rk) Social History Tobacco Use Types Packs/Day Years Used Date Never Smoker Alcohol Use Standard Drinks/Week Comments No 0 (1 standard drink = 0.6 oz pure alcoho l) Sex Assigned at Date Recorded Not on file documented as of this encounter Plan of Treatment Not on filedocumented as of this encounter Visit Diagnoses Not on filedocumented in this encounter Care Teams Schedule Hanger Relationship Specialty Start Date End Date Yaritza Rodriguez APRN PCP - General 06/04/10 02/15/17 documented as of this encounter
--- OUTSIDE RECORDS SUMMARY | 2022-03-07 01:39 | XMS_ITS | Encounter Summary ---
:1940 Author Organization [facility] [place] [address] Care Team Providers Name Role Phone Shawna Couch MD Primary Care Provider Encounter Details Date Type Department Care Team Description 02/16/2017 Office Visit Psychiatry and Behavioral Carole Milan MD [facility] [place] [address] [place] [address] [phone] (Wo rk) Social History Tobacco Use Types Packs/Day Years Used Date Never Smoker Alcohol Use Standard Drinks/Week Comments No 0 (1 standard drink = 0.6 oz pure alcoho l) Sex Assigned at Date Recorded Not on file documented as of this encounter Last Filed Vital Signs Vital Sign Reading Time Taken Comments Blood Pressure 151/75 02/16/2017 1:29 PM EDT Pulse 76 02/16/2017 1:29 PM EDT Temperature - - Respiratory Rate - - Oxygen Saturation - - Inhaled Oxygen Concentration - - Weight 67.6 kg (149 lb) 02/16/2017 1:29 PM EDT Height 169.5 cm (5' 6.75) 02/16/2017 1:29 PM EDT Body Mass Index 23.51 02/16/2017 1:29 PM EDT documented in this encounter Progress Notes Carole Lozano - 02/16/2017 1:30 PM EDT HEALTHY AGING AND BRAIN CARE [...] medication check. INTERVAL HISTORY SINCE LAST VISIT: - RENY doing well - doing better there re: depression with god's help, got my thinking turned around - driving no issues She noticed improvement in her driving skills after she was put on Exelon patch and would like to continue taking it. - No c/o or evidence of anxiety, depression, alejandro or psychosis. Denies SI, Hi, AVH. 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 Social Skills: (conversation; involvement with family, [...] (incl VS)] Constitutional System ? Vital Signs: Blood pressure 151/75, pulse 76, height 169.5 cm (5' 6.75), weight 67.6 kg (149 lb). Musculoskeletal System ? Muscle Strength/Tone (note atrophy, [...] mood ? Attention/Concentration: fair/fair ? Language: fluent Liberian ? Fund of Knowledge: good ? Cognitive Examination:Alert and oriented x3 TARAS COGNITIVE ASSESSMENT (MOCA) for Hoda Peoples on 02/16/2017 Version: Original Visuospatial/Executive Trails B 1/1 Copy Cube CLOCK Contour 07/13 Numbers 07/13 Hands Naming Lion 07/13 Rhino 07/13 Camel 07/13 Attention Digits Forward 07/13 Digits Backward 07/13 Tapping A Serial 7s 08/15 Language Repeat: I only know that Darren is the one to help today The cat always hit under the couch when dogs were in the room Fluency, Letter S = or >11 20 07/13 Abstraction/Similarities Train - Bicycle 07/13 Watch - Ruler 07/13 Delayed Recall Five Objects 10/15 Orientation What is the Date? 07/13 What Month is it? 07/13 What is the year? 07/13 What day of the week is it? 07/[address]? 07/13 What city are we in? 07/13 Add 1 pt if Less or equal to 12 year education: MOCA for Hoda Peoples on 02/16/2017 was: ? MEDICAL DECISION MAKING ASSESSMENT: Hoda Peoples [...] f/up. PLAN: Continue mirtazapine 15 po qhs Continue Exelon patch 4.6 mg QoD, could increase to daily if cognition worsens. Encourage healthy diet and exercise Patient can follow up with PCP ? Patient Instruction/Education provided: Patient/caregiver provided written and verbal instructions regarding medication management and follow up appt.. ? Patient/caregiver understands the plan? Yes ? Follow Up:4-6 weeks documented in this encounter Plan of Treatment Not on filedocumented as of this encounter Visit Diagnoses Not on filedocumented in this encounter Care Teams Mcat Instructor Relationship Specialty Start Date End Date Shawna Couch MD PCP - General Family Medicine 02/16/17 [address] [place] [address] documented as of this encounter
--- OUTSIDE RECORDS SUMMARY | 2022-03-07 01:39 | XMS_ITS | Encounter Summary ---
:1940 Author Organization [place] [address] Care Team Providers Name Role Phone Shawna Couch MD Primary Care Provider Encounter Details Date Type Department Care Team Description 08/03/2017 Telephone Dermatology at [facility] - CodyKelly MD [address] [place] [id number] [facility] [phone] [place], [place] [address] (Wo rk) Social History Tobacco Use Types Packs/Day Years Used Date Never Smoker Smokeless Tobacco: Never Used Alcohol Use Standard Drinks/Week Comments No 0 (1 standard drink = 0.6 oz pure alcoho l) Sex Assigned at Date Recorded Not on file documented as of this encounter Miscellaneous Notes Telephone Encounter - Annabella Simpson LPN - 08/04/2017 8:46 AM EST Spoke with patient regarding her hives. She will call when she has a wheal . She understands what a hive looks like and will call to be seen same day as her hives are gone within 24 hours. Telephone Encounter - Yaritza Jose - 08/03/2017 10:25 AM EST Received a call from Hoda Peoples wanting to know if the Hive spots that you are going to do the biopsy on need to be inflamed? Hoda said, she does have an area now that is red but not really inflamed. Best number to reach her back is [phone]. documented in this encounter Plan of Treatment Not on filedocumented as of this encounter Visit Diagnoses Not on filedocumented in this encounter Care Teams Hr Shared Services Consultant Relationship Specialty Start Date End Date Shawna Couch MD PCP - General Family Medicine 02/16/17 [address] [place] [address] documented as of this encounter
--- OUTSIDE RECORDS SUMMARY | 2022-03-07 01:39 | XMS_ITS | Encounter Summary ---
:1940 Author Organization [facility] [place] [address] Care Team Providers Name Role Phone Shawna Couch MD Primary Care Provider Encounter Details Date Type Department Care Team Description 08/24/2017 Telephone Dermatology at [facility] Kelly Pena MD [address] [place] [id number] [facility] [phone] [place], [place] [address] (Wo rk) Social History Tobacco Use Types Packs/Day Years Used Date Never Smoker Smokeless Tobacco: Never Used Alcohol Use Standard Drinks/Week Comments No 0 (1 standard drink = 0.6 oz pure alcoho l) Sex Assigned at Date Recorded Not on file documented as of this encounter Miscellaneous Notes Telephone Encounter - Kelly Pena MD - 08/24/2017 5:39 PM EST Returned Mrs. Peoples's call. Clarified the prednisone course. Only doing 10 days for this course. She expresses understanding. documented in this encounter Plan of Treatment Not on filedocumented as of this encounter Visit Diagnoses Not on filedocumented in this encounter Care Teams Nurse Navigator Relationship Specialty Start Date End Date Shawna Couch MD PCP - General Family Medicine 8/7/17 [address] [place] [address] documented as of this encounter
--- OUTSIDE RECORDS SUMMARY | 2022-03-07 01:39 | XMS_ITS | Encounter Summary ---
:1940 Author Organization [facility] Address [address] [place] [address] Care Team Providers Name Role Phone Shawna Couch MD Primary Care Provider Reason for Visit Reason Comments Urticaria Consultation (Routine) - Closed Specialty Diagnoses / Procedures Referred By Contact Refer red To Contact Allergy Diagnoses Rash and other nonspecific skin eruption Urticaria, unspecified skin rash/urticaria for over two yrs Cheko Kenny MD [facility] [address] [place] [address] Drive [place], [place] [address] [place] [address] Fax: Referral ID Status Reason Start Date Expiration Date Visits V isits Requested Authorized [id number] Closed Consult, 05/06/2017 05/06/2018 1 1 [facility] Encounter Details Date Type Department Care Team Description 06/19/2017 Office Visit Allergy at [facility] Randa Rodriguez MD Chronic urticaria; [facility] ioedema, initial encounter [address] [place] [address] [place] [address] [phone] Social History Tobacco Use Types Packs/Day Years Used Date Never Smoker Smokeless Tobacco: Never Used Alcohol Use Standard Drinks/Week Comments No 0 (1 standard drink = 0.6 oz pure alcoho l) Sex Assigned at Date Recorded Not on file documented as of this encounter Last Filed Vital Signs Vital Sign Reading Time Taken Comments Blood Pressure 137/71 06/19/2017 10:02 AM EST Pulse 59 06/19/2017 10:02 AM EST Temperature - - Respiratory Rate - - Oxygen Saturation - - Inhaled Oxygen Concentration - - Weight 66.7 kg (147 lb) 06/19/2017 10:02 AM EST Height 168.9 cm (5' 6.5) 06/19/2017 10:02 AM EST Body Mass Index 23.37 06/19/2017 10:02 AM EST documented in this encounter Patient Instructions Patient InstructionsRanda Rodriguez MD - 06/19/2017 10:00 AM EST Chronic urticaria (hives) and angioedema (swelling): this is typically not due to environmental trigger but dysregulation of immune system, thought to be autoimmune in nature. It may come and go throughout life. Though there is an association between this condition and other autoimmune diseases, most patients with this do not have any complications from it. I do not think you need any additional testing at this time. Recommend taking: - cetirizine (zyrtec) 10mg twice a day - ranitidine (zantac) 150mg twice a day - montelukast (singulair) 10mg at night - goal is no symptoms for 4 months, then taper medications - if you have been on these medications for 1 month and are still getting symptoms, return to discuss additional treatment options, such as injectable medications to control hives. Return in 4 months documented in this encounter Progress Notes Randa Rodriguez MD - 06/19/2017 10:00 AM EST CC: hives HPI: Hoda Peoples is a 77 y.o. female with a PMH of restless legs and mild alzheimer's presenting for evaluation of hives at the request of Cheko Kenny. The patient reports that she has had hives for 4 months. The symptoms vary and do not occur every day. However, she states that she is breaking out more often than she is not. She has gone up to 2 weeks without symptoms during this time. When the hives occur they usually last several hours and can take up part or all of the day. She states that they leave red moore that last about a week in areas of pressure points like her sock line. She has occasionally had lip swelling but mostly is just getting hives. No tongue or throat swelling or trouble breathing. She has gotten prednisone 3 times over the past 4 months. It is not completely controlling symptoms either. She's tried avoiding foods with no change in her symptoms, went on vacation with no change in her symptoms, and tried stopping various medications with no change in her symptoms. She reports that 3 years ago she had hives as well for about 3 months and it responded to prednisone. She is using Claritin daily which helps but does not control the hives. She is also using Benadryl as needed and anti-itch cream. She denies a history of seasonal allergies or asthma. She admits to occasional hand eczema which hasnot been a recent problem. ROS is per HPI plus admits to fatigue, red eyes, postnasal drip, occasional nosebleeds, loss of smell, heartburn, constipation, irregular heartbeat, heart murmur, depression, anxiety, cold intolerance.Review of systems is otherwise negative. Patient Active Problem List Diagnosis Code ??? Mild cognitive impairment G31.84 ??? Anxiety disorder F41.9 ??? Mood disorder F39 Past Medical History: Diagnosis Date ??? Alzheimer disease ??? Anxiety disorder ??? Depression ??? Hypertension ??? Macular degeneration ??? Osteoporosis ??? Restless legs ??? Seizure disorder ??? Spinal compression fracture ??? Vertigo Past Surgical History: Procedure Laterality Date ??? CATARACT REMOVAL ??? SECTION ??? DILATION AND CURETTAGE OF UTERUS ??? TUBAL LIGATION ??? propranolol (INDERAL) 10 mg Tablet ??? aspirin 81 mg Tablet, Delayed Release (E.C.) ??? fish oil-omega-3 fatty acids 1,000 mg Capsule ??? Simethicone (GAS-X) 125 mg Capsule ??? docusate sodium (COLACE) 50 mg Capsule ??? magnesium 250 mg Tablet ??? MULTIVIT WITH CALCIUM,IRON,MIN (WOMEN'S DAILY MULTIVITAMIN ORAL) ??? clobetasol (TEMOVATE) 0.05 % Cream ??? midodrine (PROAMATINE) 5 mg Tablet ??? rOPINIRole (REQUIP) 0.25 mg Tablet ??? mirtazapine (REMERON) 15 mg Tablet ??? rivastigmine (EXELON) 4.6 mg/24 hr Patch 24 hr ??? alendronate (FOSAMAX) 70 mg tablet ??? LORazepam (ATIVAN) 1 mg Tablet ??? EPINEPHrine 0.3 mg/0.3 mL Auto-Injector ??? cetirizine (ZYRTEC) 10 mg Tablet ??? montelukast (SINGULAIR) 10 mg Tablet ??? ranitidine (ZANTAC) 150 mg Tablet No Known Allergies Family History [...] ??? 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 There is no central a/c. There is a woodstove. The patient has seen mice around the home. There is no known mold or mildew. The patient does not live on a farm.The patient is not exposed to farm animals. Pets: none PHYSICAL EXAM: BP 137/71 Pulse 59 Ht 168.9 cm (5' 6.5) Wt 66.7 kg (147 lb) BMI 23.37 kg/m2 Gen: AAOx3, no acute distress HEENT: Tympanic membranes clear, no lesions, erythema, or drainage. Conjunctiva not injected. Nasal passages show pink turbinates bilaterally. OP clear without erythema or cobblestoning. NECK: supple, no lymphadenopathy CVS: RRR, no m/r/g LUNGS: CTAB, no wheezing or rales ABD: soft, non-tender, non-distended SKIN: no rashes EXTREMITIES: warm and well-perfused, no edema ASSESSMENT AND PLAN: 77 y.o. female with chronic urticaria and angioedema. Counseled that this is typically not due to environmental trigger but dysregulation of immune system, thought to be autoimmune in nature. It may come and go throughout life. Though there is an association between this condition and other autoimmunediseases, most patients with this do not have any complications from it. I do not think she needs any additional testing at this time. There has been no pattern with her diet and she does not need foodtesting for this and should resume her usual diet. Recommend taking: - cetirizine (zyrtec) 10mg twice a day - ranitidine (zantac) 150mg twice a day - montelukast (singulair) 10mg at night - goal is no symptoms for 4 months, then taper medications - if you have been on these medications for 1 month and are still getting symptoms, return to discuss additional treatment options, such as injectable medications to control hives. Return in 4 months Randa Rodriguez MD documented in this encounter Plan of Treatment Not on filedocumented as of this encounter Visit Diagnoses Diagnosis Chronic urticaria Other specified urticaria Angioedema, initial encounter documented in this encounter Care Teams Asthma Educator Relationship Specialty Start Date End Date Shawna Couch MD PCP - General Family Medicine 02/16/17 [address] [place] [address] documented as of this encounter
--- OUTSIDE RECORDS SUMMARY | 2022-03-07 01:39 | XMS_ITS | Encounter Summary ---
:1940 Author Organization [facility] [place] [address] Care Team Providers Name Role Phone Shawna Couch MD Primary Care Provider Encounter Details Date Type Department Care Team Description 06/25/2017 Telephone Allergy at [facility] Jessica Massey, [place] [address] Social History Tobacco Use Types Packs/Day Years Used Date Never Smoker Smokeless Tobacco: Never Used Alcohol Use Standard Drinks/Week Comments No 0 (1 standard drink = 0.6 oz pure alcoho l) Sex Assigned at Date Recorded Not on file documented as of this encounter Miscellaneous Notes Telephone Encounter - Jesscia Massey RN - 06/25/2017 1:21 PM EST Callback to patient to f/u on her question about anticipating insomnia. Dr. Rodriguez stated that she has no recommendations if the patient has not yet experienced insomnia. Relayed this to patient and advised her to callback if this incident arises. documented in this encounter Plan of Treatment Not on filedocumented as of this encounter Visit Diagnoses Not on filedocumented in this encounter Care Teams Billing Machine Operator Relationship Specialty Start Date End Date Shawna Couch MD PCP - General Family Medicine 02/16/17 [address] [place] [address] documented as of this encounter
--- OUTSIDE RECORDS SUMMARY | 2022-03-07 01:39 | XMS_ITS | Encounter Summary ---
:1940 Author Organization [place] [address] Care Team Providers Name Role Phone Yaritza Rodriguez APRN Primary Care Provider Reason for Visit Reason Comments Medication Refill Encounter Details Date Type Department Care Team Description 10/02/2016 Refill Psychiatry and Behavioral Irma Weir MD [facility] [place] [address] [place] [address] [phone] (Wo rk) Social History Tobacco Use Types Packs/Day Years Used Date Never Smoker Alcohol Use Standard Drinks/Week Comments No 0 (1 standard drink = 0.6 oz pure alcoho l) Sex Assigned at Date Recorded Not on file documented as of this encounter Plan of Treatment Not on filedocumented as of this encounter Visit Diagnoses Not on filedocumented in this encounter Care Teams Gusset Stitcher Relationship Specialty Start Date End Date Yaritza Rodriguez APRN PCP - General 06/04/10 02/15/17 documented as of this encounter
--- OUTSIDE RECORDS SUMMARY | 2022-03-07 01:39 | XMS_ITS | Encounter Summary ---
:1940 Author Organization [facility] [place] [address] Care Team Providers Name Role Phone Yaritza Rodriguez APRN Primary Care Provider Reason for Visit Reason Onset Date Comments Medication Refill 05/05/2016 Encounter Details Date Type Department Care Team Description 05/05/2016 Refill Psychiatry and Behavioral Darren Argueta MD [facility] [place] [address] [place] [id number] [phone] (Wo rk) Social History Tobacco Use Types Packs/Day Years Used Date Never Smoker Alcohol Use Standard Drinks/Week Comments No 0 (1 standard drink = 0.6 oz pure alcoho l) Sex Assigned at Date Recorded Not on file documented as of this encounter Plan of Treatment Not on filedocumented as of this encounter Visit Diagnoses Not on filedocumented in this encounter Care Teams Sleep Lab Technician Relationship Specialty Start Date End Date Yaritza Rodriguez APRN PCP - General 06/04/10 02/15/17 documented as of this encounter
--- OUTSIDE RECORDS SUMMARY | 2022-03-07 01:39 | XMS_ITS | Encounter Summary ---
:1940 Author Organization [facility] [place] [address] Care Team Providers Name Role Phone Shawna Couch MD Primary Care Provider Reason for Visit Reason Onset Date Comments Medication Refill 06/24/2017 Encounter Details Date Type Department Care Team Description 06/24/2017 Refill [place] [facility] Randa Rodriguez MD [facility] [place] [address] ALLERGY DEPT [phone] [place], [place] [address] (Wo rk) Social History Tobacco [...] on filedocumented in this encounter Care Teams Center Human Resources Manager Relationship Specialty Start Date End Date Shawna Couch MD PCP - General Family Medicine 02/16/17 [address] [facility] [place] [address] documented as of this encounter
--- OUTSIDE RECORDS SUMMARY | 2022-03-07 01:39 | XMS_ITS | Encounter Summary ---
:1940 Author Organization [facility] [place] [address] Care Team Providers Name Role Phone Shawna Couch MD Primary Care Provider Reason for Visit Reason Onset Date Comments Medication Refill 01/14/2017 Encounter Details Date Type Department Care Team Description 01/14/2017 Refill Psychiatry and Behavioral Carole Milan MD [facility] [place] [address] [place] [address] [phone] (Wo rk) Social History Tobacco Use Types Packs/Day Years Used Date Never Smoker Alcohol Use Standard Drinks/Week Comments No 0 (1 standard drink = 0.6 oz pure alcoho l) Sex Assigned at Date Recorded Not on file documented as of this encounter Plan of Treatment Not on filedocumented as of this encounter Visit Diagnoses Not on filedocumented in this encounter Care Teams Dual Hose Cementer Relationship Specialty Start Date End Date Shawna Couch MD PCP - General Family Medicine 02/16/17 [address] [place] [id number] documented as of this encounter
--- OUTSIDE RECORDS SUMMARY | 2022-03-07 01:39 | XMS_ITS | Encounter Summary ---
:1940 Author Organization [facility] [place] [address] Care Team Providers Name Role Phone Yaritza Rodriguez JAILENE Primary Care Provider Reason for Visit Reason Comments Anxiety Dementia Encounter Details Date Type Department Care Team Description 09/16/2016 Office Visit Psychiatry and Irma Albarran; Behavioral Health nick Justice MD MCI (mild cognitive impairment) [facility] [address] Mike PSYCHIATRY [place] [address] [phone] Social History Tobacco Use Types Packs/Day Years Used Date Never Smoker Alcohol Use Standard Drinks/Week Comments No 0 (1 standard drink = 0.6 oz pure alcoho l) Sex Assigned at Date Recorded Not on file documented as of this encounter Last Filed Vital Signs Vital Sign Reading Time Taken Comments Blood Pressure 148/88 09/16/2016 4:00 PM EST Pulse 77 09/16/2016 4:00 PM EST Temperature - - Respiratory Rate - - Oxygen Saturation - - Inhaled Oxygen Concentration - - Weight - - Height - - Body Mass Index - - documented in this encounter Progress Notes Irma Albarran MD - 09/16/2016 3:15 PM EST [facility] FOLLOW UP NOTE Time Spent: 40 minutes ?? Attendee(s): patient ?? This patient was seen with teaching faculty, seen and discussed with teaching faculty (name) .; see attending's note for confirmatory and/or revisionary documentation. ?? HISTORY ?? Chief Complaint/Reason for visit: Hoda Peoples is a 76 y.o. woman w/hx of mild cognitive impairment and anxiety and depression who presents to the clinic for follow up and medication check. INTERVAL HISTORY SINCE LAST VISIT: () - Pt reports feeling tired physically because of recurrent flue, bronchitis since the . She had workup for hypotension and low heart rate. She was started on propranolol which caused significant drop in her BP and HR for which was stopped by her pododermatologist. However she was put on a different med for her BP but she cannot recall the name. She had ECHO and could not remember the diagnosis. She reports poor sleep, interrupted and was started on trazodone 50 mg by her PCP. She reports that she sleeps okay when she alternates trazodone with melatonin. Otherwise reports good appetite, interest in life and energy is fair. Denies SI, HI, AVH. She continues to tolerate the higher dose of mirtazapine and has not taking ativan for the last few weeks. However she would like to have medication to help with the sleep. Changes as compared to last visit in [...] (awareness of illness; ability/willingness to discuss symptoms, illness)none at present. Caregiver Coping and related Considerations (describe):N/A Current Medications: Current Outpatient Prescriptions Medication Sig Dispense Refill ??? traZODone (DESYREL) 50 mg Tablet Take 50 mg by mouth nightly. ??? mirtazapine (REMERON) 15 mg Tablet Take 1.5 tablets by mouth nightly. 30 tablet 3 ??? rivastigmine (EXELON) 4.6 mg/24 hr Patch 24 hr 1 patch on skin every other day 90 patch 1 ??? melatonin 5 mg Tablet Take 10 mg by mouth. ??? meclizine (ANTIVERT) 25 mg tablet Take 25 mg by mouth 2 times daily as needed. ??? alendronate (FOSAMAX) 70 mg tablet Take 70 mg by mouth every 7 days. Take in the morning with a full glass of water, on an empty stomach, and do not take anything else by mouth or lie down for the next 30 min. ??? cyproheptadine (PERIACTIN) 4 mg tablet Take 8 mg by mouth daily as needed. Reported on 09/16/2016 ??? LORazepam (ATIVAN) 1 mg tablet Take 0.5 mg by mouth nightly as needed. Reported on 09/16/2016 No current facility-administered medications for this visit. Pertinent Medication Side Effects: Denies. Review of Systems: (07/14/09) Constitutional: Eyes: ENT: Cardiovascular: Respiratory: GI: : Musculoskeletal: Integumentary: Neurological: Psychiatric: See HPI above Endocrine: Hematologic/Lymphatic: Allergic/Immunological: See reviewed allergies PFSH: () Past Medical/Psychiatric History: Family Psychiatric and Medical History: Social History: EXAM [12/19/13 bullets (incl VS)] Constitutional System ? Vital Signs: Blood pressure 148/88, pulse 77. Musculoskeletal System ? Muscle Strength/Tone (note atrophy, abnormal movements): ? Gait and Station: ?? Psychiatric System/MSE ? General Appearance/Behavior: good hygiene, causally groomed, pleasant, cooperative and friendly attitude. ? Speech: normal rate and tone ? Thought Process: linear and goal directed ? Associations: intact ? Abnormal Thoughts and Perceptions / Thought Content: Homicidality / Violent Thoughts: denies Suicidality: denies Hallucinations: denies Delusions: denies Obsessions: denies ? Judgment and Insight: good/good ? Mood & Affect: good at present, mild intermittent anxiety/ full range ? Attention/Concentration: fair/fair ? Language: fluent Dominican ? Fund of Knowledge: good ? Cognitive Examination:Alert and oriented x3 ? MEDICAL DECISION MAKING ?? ASSESSMENT: Hoda Peoples is a 76 y.o. woman w/hx of mild cognitive impairment and anxiety and depression who presents to the clinic for follow up and medication check. Intermittent anxiety inthe context of recurrent respiratory problem and cardiac issues. Reported low BP and HR , workup anddx are not available. Encourage the pt to e-mail to fax the report of her echo. Originally pt dx is MCI and her cognitive changes are more consistent with the anxiety sx which is a psychiatric d/o known to worsen the cognitive function. No clear indication to continue Exelon ( subtherapeutic dose) andwould rather d/c and address the treatment of anxiety with SSRI. The fact that she is reporting low pulse and bp ( I do not have the report and the pt cannot remember what dx or treatment she is on) could be a side effect from CEI. Pt agrees to come in 2- 3 weeks, get her report from the pododermatologist or her PCP. Will collaborate with pt's providers and will fax my evaluation to the PCP and the pododermatologist. ?? PLAN: Continue mirtazapine 22.5 po qhs Continue melatonin 10 mg po qhs Consider d/c Exelon patch D/c ativan, discussed risk of cognitive impairment, fall and dependency, pt voiced understanding Encourage healthy diet and exercise Discussed the sleep hygiene and encourage the pt to follow them ?? Patient Instruction/Education provided: Patient/caregiver provided written and verbal instructions regarding medication management and follow up appt.. ?? Patient/caregiver understands the plan? Yes ?? Follow Up:4-6 weeks ?? Santos Bean MD - 09/16/2016 3:15 PM EST Case discussed and patient seen with Dr. Albarran. I agree with her note as written. During my encounter with her, the patient admitted that she lies in bed until 0400 trying to fall asleep. Despite her claiming some knowledge of behavioral approaches to insomnia, she did not know that this is a counte rproductive habit. I spent about 10 minutes with her educating her about chornic insomnia, the limitations of pharmacotherapy and the elements of sleep hygiene. documented in this encounter Plan of Treatment Not on filedocumented as of this encounter Visit Diagnoses Diagnosis Anxiety Anxiety state, unspecified MCI (mild cognitive impairment) Mild cognitive impairment, so stated documented in this encounter Care Teams Powder Nipper Relationship Specialty Start Date End Date Yaritza Rodriguez APRN PCP - General 06/04/10 02/15/17 documented as of this encounter
--- OUTSIDE RECORDS SUMMARY | 2022-03-07 01:39 | XMS_ITS | Encounter Summary ---
:1940 Author Organization [facility] [place] [place] [address] Care Team Providers Name Role Phone Shawna Couch MD Primary Care Provider Encounter Details Date Type Department Care Team Description 08/19/2017 Telephone Dermatology at [facility] CallDarren MD [address] [place] [address] [facility] [phone] [place], [place] [address] (Wo rk) Social History Tobacco Use Types Packs/Day Years Used Date Never Smoker Smokeless Tobacco: Never Used Alcohol Use Standard Drinks/Week Comments No 0 (1 standard drink = 0.6 oz pure alcoho l) Sex Assigned at Date Recorded Not on file documented as of this encounter Miscellaneous Notes Telephone Encounter - CallDarren - 08/19/2017 5:02 PM EST Was asked by can capper to take call for patient at 16:58. Patient is scheduled to have a biopsy tomorrow with Dr. Pena and she is currently experiencing extensive urticaria. She asked if she could take benedryl and I recommended that if tolerable she avoid any anti- histamines in order to obtain the most accurate biopsy specimen tomorrow. She then expressed that she was worried about some lip swelling and it going to her throat, she denied shortness of breath, wheezing, no history of angioedemaor anaphylaxsis that she can recall. I instructed her to present to nearest ED if this were the case. Patient understood and planning for appointment tomorrow documented in this encounter Plan of Treatment Not on filedocumented as of this encounter Visit Diagnoses Not on filedocumented in this encounter Care Teams Funeral Location Manager Relationship Specialty Start Date End Date Shawna Couch MD PCP - General Family Medicine 02/16/17 [address] [place] [address] documented as of this encounter
--- OUTSIDE RECORDS SUMMARY | 2022-03-07 01:39 | XMS_ITS | Encounter Summary ---
:1940 Author Organization [facility] [place] [address] Care Team Providers Name Role Phone Shawna Couch MD Primary Care Provider Reason for Visit Reason Comments Urticaria Consultation (Routine) - Closed Specialty Diagnoses / Procedures Referred By Contact Refer red To Contact Dermatology Diagnoses Chronic urticaria Randa Rodriguez MD [facility] Dermatology [facility] [address] [place] [address] [place] [address] Referral ID Status Reason Start Date Expiration Date Visits V isits Requested Authorized [id number] Closed Consult, 07/20/2017 07/20/2018 1 1 Test & Treat Encounter Details Date Type Department Care Team Description 07/23/2017 [facility] Chronic urticaria Fanta LAMA [address] [place] [address] [facility] [place], [place] [address] (Wo rk) Social History Tobacco Use Types Packs/Day Years Used Date Never Smoker Smokeless Tobacco: Never Used Alcohol Use Standard Drinks/Week Comments No 0 (1 standard drink = 0.6 oz pure alcoho l) Sex Assigned at Date Recorded Not on file documented as of this encounter Progress Notes Kelly Pena MD - 07/23/2017 9:20 AM EST DERMATOLOGY - NEW PATIENT NOTE Date of service: 07/23/2017 Hoda Peoples : 1940, 77 y.o. CC: Chief Complaint Patient presents with ??? Urticaria HPI: Hoda Peoples is a 77 y.o. female referred by Randa Rodriguez with the following concerns: - Patient is here today for hives, which she states that she has had since February 2017. She also hada similar bout about 3 years ago that lasted for 3 months and then self-resolved. Patient has tried benadryl which only helped with the itch. She is currently being managed by allergy and on Zyrtec 20 mg twice a day x 1 week, ranitidine 150mg BID and Singulair 10 mg qhs x 1month. She has also been given several courses of prednisone. Patient states that she isn't breaking out as much with hives sinceon her current regimen and has found this to be the most effective treatment thus far. Patient reports that the hives appear were clothes seem to rub on the skin (socks and waist band) as well as otherrandom areas. Denies hives in cold weather or hot showers. They itch and sometimes burn. Reports they last 24 to sometimes more than 24 hrs. She has photos on her phone of a few that had a more purpuric quality. No raised lesions today. Patient does report history of Raynauds. Denies autoimmune disease in herself or family. She has not had fevers, chills, or night sweats. Denies an illness when the hives started. Has done food elimination without success. Keeps a hive diary. Medication review: alendronate x10 years Asa x 5 years colace x 5 years ativan x 10 years midodrine x 3-4 years Propranolol (palpataions)x 3-4 years rivastigmine x 8 years ropinirole x 3 years Simethicone x 5-6 years Tylenol as needed 2-3 x over a few weeks Malignancy screenings: Colonoscopy 8-10 years ago, normal Mammo last year, normal Previous pap smears were normal No hx of cancer and not swollen lymph nodes or night sweats Relevant Skin History: - Skin cancer (including type): no - Chronic urticaria since Feb 2017 managed by allergy Family History: Melanoma: no Social History: - , here today - retired - Managed Objectsve Meds: Current Outpatient Prescriptions Medication Sig Dispense Refill ??? cetirizine (ZYRTEC) 1 mg/mL Solution Take 20 mLs by mouth 2 times daily. 473 mL 12 ??? hydrOXYzine (ATARAX) 25 mg Tablet Take 1 tablet by mouth nightly as needed for Itching. 60 tablet 12 ??? LORazepam (ATIVAN) 1 mg Tablet every 6 hours as needed. ??? EPINEPHrine 0.3 mg/0.3 mL Auto-Injector use as directed by prescriber 0 ??? propranolol (INDERAL) 10 mg Tablet Take 10 mg by mouth daily as needed. ??? aspirin 81 mg Tablet, Delayed Release [...] MULTIVITAMIN ORAL) Take by mouth daily. ??? clobetasol (TEMOVATE) 0.05 % Cream Apply topically daily as needed. ??? montelukast (SINGULAIR) 10 mg Tablet Take 1 tablet by mouth nightly. 30 tablet 12 ??? ranitidine (ZANTAC) 150 mg Tablet Take 1 tablet by mouth 2 times daily. 60 tablet 11 ??? midodrine (PROAMATINE) 5 mg Tablet ??? rOPINIRole (REQUIP) 0.25 mg Tablet ??? mirtazapine (REMERON) 15 mg Tablet Take [...] No current facility-administered medications for this visit. Allergy: No Known Allergies Review of Systems: - General: Feels well. - Skin: No other skin concerns. Examination: - Constitutional: Patient was alert, well-appearing and in no noticeable distress. - Skin: Skin examination of the scalp, face, ears, neck, back, chest, abdomen, right and left upper extremities, right and left lower extremities, hands, feet, and buttocks was normal with the exception of the findings listed below. Genitalia not examined. Diagnosis/Skin findings/Assessment/Plan: 1. Chronic Urticaria - Left knee and abdomen: faint pink patches. No plaques. - Discussed that there are not lesions present to biopsy today that would provide diagnostic value. She must have a wheal, preferably one of her ecchymotic ones that she showed me in her phone, to get the best information. - Discussed coming into clinic when she has a flare, or alternatively, speaking with allergy about aplanned cessation of some of her antihistamines to induce wheals. I will forward my note to allergy. - If the suspicion is very high, could consider a DIF + H&E (70%-80% of DIFs are positive for Ig, complement and fibrin around blood vessels) - Labs to consider if biopsy reveals urticarial vasculitis: - CBC w/diff - BUN/Cr - Hep B panel - Hep C - CH50, C3, C4, c1q - WILMAN - CARLY - U/A with micro - ESR - Continue management per allergy. RTC: PRN Note initiated by Brittny De La Garza CMA. I am documenting this encounter acting as the scribe for and in the presence of Kelly Pena MD I performed the above scribed service and agree with the accuracy of the documentation in this encounter. Reviewed and signed by: Kelly Pena MD Resident in Dermatology [facility] Patient seen in conjunction with staff pet nutrition specialist: Gisell Frances MD Section of Dermatology [facility] Gisell Frances MD - 07/23/2017 9:20 AM EST I directly supervised Dr. Kelly Pena during this office visit. Dr. Pena presented the history and physical exam to me. I then saw and examined this patient with Dr. Pena. We reviewed the history and pertinent details and I confirmed the physical findings. I agree with the details of the history and physical exam as documented in Dr. Pena's note. Gisell Frances MD Staff Physician documented in this encounter Plan of Treatment Not on filedocumented as of this encounter Visit Diagnoses Diagnosis Chronic urticaria Other specified urticaria documented in this encounter Care Teams Job Compositor Relationship Specialty Start Date End Date Shawna Couch MD PCP - General Family Medicine 02/16/17 [address] [place] [address] documented as of this encounter
--- OUTSIDE RECORDS SUMMARY | 2022-03-07 01:39 | XMS_ITS | Encounter Summary ---
:1940 Author Organization [facility] [place] [address] Care Team Providers Name Role Phone Shawna Couch MD Primary Care Provider Reason for Visit Reason Onset Date Comments Medication Refill 06/24/2017 Encounter Details Date Type Department Care Team Description 06/24/2017 [place] [facility] [place] [facility] [place] [address] ALLERGY DEPT [phone] [place], [place] [address] (Wo rk) Social History Tobacco Use Types Packs/Day Years Used Date Never Smoker Smokeless Tobacco: Never Used Alcohol Use Standard Drinks/Week Comments No 0 (1 standard drink = 0.6 oz pure alcoho l) Sex Assigned at Date Recorded Not on file documented as of this encounter Miscellaneous Notes Telephone Encounter - Opal Chase - 06/24/2017 10:14 AM EST Zyrtec needs to be in syrup form in order for insurance to pay for it. documented in this encounter Plan of Treatment Not on filedocumented as of this encounter Visit Diagnoses Not on filedocumented in this encounter Care Teams Skein Dyer Relationship Specialty Start Date End Date Shawna Couch MD PCP - General Family Medicine 02/16/17 [address] [place] [address] documented as of this encounter
--- OUTSIDE RECORDS SUMMARY | 2022-03-07 01:39 | XMS_ITS | Encounter Summary ---
:1940 Author Organization [facility] [place] [address] Care Team Providers Name Role Phone Shawna Couch MD Primary Care Provider Reason for Visit Reason Onset Date Comments Questions 07/24/2017 Encounter Details Date Type Department Care Team Description 07/24/2017 Telephone Allergy at [facility] Kiarra Landaverde [place] [address] Social History Tobacco Use Types Packs/Day Years Used Date Never Smoker Smokeless Tobacco: Never Used Alcohol Use Standard Drinks/Week Comments No 0 (1 standard drink = 0.6 oz pure alcoho l) Sex Assigned at Date Recorded Not on file documented as of this encounter Miscellaneous Notes Telephone Encounter - Kiarra Landaverde LPN - 07/28/2017 8:42 AM EST Pt called this am to stop her antihistamines at least 3 days before her Dermatology appointment. Pt verbalized her understanding of stopping her antihistamines for the dermatology appointment. No otherquestions when asked. Telephone Encounter - Kiarra Landaverde LPN - 07/24/2017 1:06 PM EST Pt called to ask if she needed to stop her antihistamines for her dermatology appointment ? Dr Rodriguez said no. But if dermatology wants her stop the antihistamines she can stop them for a 3 days prior to the dermatology appointment. Telephone Encounter - Kiarra Landaverde LPN - 07/24/2017 1:05 PM EST ----- Message from Randa Rodriguez MD sent at 07/24/2017 8:50 AM EST ----- Regarding: RE: question No she can continue these ----- Message ----- From: Kiarra Landaverde LPN Sent: 07/24/2017 8:31 AM To: Randa Rodriguez MD Subject: question Pt wants to know if she should stop her antihistamines for her derm appt ? documented in this encounter Plan of Treatment Not on filedocumented as of this encounter Visit Diagnoses Not on filedocumented in this encounter Care Teams Ramp Supervisor Relationship Specialty Start Date End Date Shawna Couch MD PCP - General Family Medicine 02/16/17 [address] [place] [address] documented as of this encounter
--- OUTSIDE RECORDS SUMMARY | 2022-03-07 01:39 | XMS_ITS | Encounter Summary ---
:1940 Author Organization [facility] [place] [address] Care Team Providers Name Role Phone Shawna Couch MD Primary Care Provider Reason for Visit Reason Comments Follow-up Encounter Details Date Type Department Care Team Description 09/04/2017 Office Visit Allergy [place] [facility], Chronic urticaria; [facility] Angioedema, subsequent encounter; Drive [facility] On aspirin at home; [place], [place] [id number] ALLERGY AND [phone] IMMUNOLOGY [place], [place] [address] Social History Tobacco Use Types Packs/Day Years Used Date Never Smoker Smokeless Tobacco: Never Used Alcohol Use Standard Drinks/Week Comments No 0 (1 standard drink = 0.6 oz pure alcoho l) Sex Assigned at Date Recorded Not on file documented as of this encounter Last Filed Vital Signs Vital Sign [place] Time Taken Comments Blood Pressure 125/68 09/04/2017 1:03 PM EST Pulse 63 09/04/2017 1:03 PM EST Temperature - - Respiratory Rate 20 09/04/2017 1:03 PM EST Oxygen Saturation - - Inhaled Oxygen Concentration - - Weight 66.7 kg (147 lb) 09/04/2017 1:03 PM EST Height 170.2 cm (5' 7) 09/04/2017 1:03 PM EST Body Mass Index 23.02 09/04/2017 1:03 PM EST documented in this encounter Patient Instructions Patient InstructionsApple [place] MD - 09/04/2017 1:00 PM EST - continue Zantac 150mg twice daily - Continue montelukast 10mg nightly - Continue ZYRTEC to 10mg twice daily - Start loratadine 10mg twice daily - Continue Benadryl 25mg every 6 hours as needed for hives or itchiness Antihistamines are sedating. Please do not operate machinery or drive a car while on antihistamines. - Always have EpiPen available. Call 911 and go to the local ER after administering epinephrine. - Avoid NSAIDs ( ie ibuprofen, naproxen, Motrin, Aleve, Advil). Okay to continue aspirin 81mg. - Avoid friction, hot showers and alcohol - Avoid foods that contain and release histamine documented in this encounter Progress Notes Apple [place] MD - 09/04/2017 1:00 PM EST Chief Complaint Patient presents with ??? Follow-up HPI. Hoda Peoples Is here today for a follow up visit. Last encounter in this section was on 08/13/2017 # Chronic urticaria # Angioedema # On aspirin at home The patient had a skin biopsy of her hives on 08/20/17. Direct immunofluroescence was negative for vasculitis there was superficial and deep perivascular and interstitial mixed infiltrate of neutrophils,eosinophils and lymphocytes and dermal edema. Following her skin biopsy she was treated with a prednisone course because of urticarial flare following medication hold for skin biopsy. The patient has had one outbreak in the last five weeks when she stopped her medications for the skin biopsy. She had lip and eyelid swelling when she stopped the medications for the biopsy. She takes loratadine 10mg daily, cetirizine 20mg ( liquid) twice daily, ranitidine 150mg twice dailymontelukast 10mg nightly and Benadryl 25mg nightly. She feels comfortable driving on this regimen. She does not feel sedated on this regimen. No unexplained fever, chills, night sweats, weight loss, decreased appetite or lymphadenopathy. She is not eliminating histamine from her diet. She has been treated with oral steroids four times ( 03/12/17, 03/29/17,05/16/17, 08/20/17) since she initially developed hives. She has been avoiding NSAIDs except aspirin.. She is taking aspirin every other day. [...] Outpatient Prescriptions Marked as Taking for the 09/04/17 encounter (Office Visit) with Apple [place] MD Medication Sig Dispense Refill ??? omega 6-tqs-zyw-fish oil 600 mg-216 mg- 324 mg-1,200 mg Capsule, Delayed Release(E.C.) Take by mouth daily. ??? cholecalciferol, Vitamin D3, 1,000 unit Capsule Take by mouth daily. ??? cyanocobalamin 1,000 mcg Tablet Take 1,000 mcg by mouth daily. ??? CALCIUM CARBONATE (CALCIUM 500 ORAL) Take 1,000 mg by mouth. ??? FLUoxetine (PROZAC) 20 mg Tablet Take 20 mg by mouth daily. ??? cetirizine (ZYRTEC) 10 mg Tablet Take 1 tablet by mouth 2 times daily. 180 tablet 3 ??? loratadine (CLARITIN) 10 mg Tablet Take 1 tablet by mouth 2 times daily. (Patient taking differently: Take 10 mg by mouth daily.) 180 tablet 3 ??? propranolol (INDERAL) 10 mg Tablet Take [...] Exam: Vital signs reviewed. Most Recent Vitals: 09/04/17 1303 BP: 125/68 Pulse: 63 Resp: 20 Normal Except General: - No apparent distress [...] Angioedema # on aspirin at home # Not taking cetirizine as directed on 08/13/17 - Hives and angioedema improved since her last visit. Skin biopsy negative for urticarial vasculitis. Most cases of urticaria are idiopathic. Reviewed additional lab work which included normal/ negative SPEP, Thyroid autoantibodies- TPO and thyroglobulin. C3, C4 and C1q levels. G6PD testing was negative. - Patient was advised to take cetirizine 10mg BID during her last visit, however, she is taking cetirizine 20mg BID. Medication dosage clarified with the patient. Emphasized that she should be taking cetirizine 10mg BID. - Patient was also supposed to be taking loratadine 10mg BID, but instead is taking it once daily. Recommend continuing 10mg once daily since hives are well controlled. If hives flare, then recommendtaking the loratadine 10mg BID. - Continue montelukast 10mg nighlty and diphenhydramine 25mg every 6 hours as needed for hives or pruritus - Reviewed sedative effect of antihistamines ie diphenhydramine, cetirizine, loratadine, fexofenadine - Always have epinephrine autoinjector available. Call 911 and to to the local Er after administering it. - Avoid NSAIDs, except aspirin. - Avoid friction, hot showers, alcohol and foods that contain or release histamine. Return in about 4 weeks (around 10/02/2017), or if symptoms worsen or fail to [...] Angioedema, subsequent encounter On aspirin at home Recommended medication dosage not follow ed documented in this encounter Care Teams Oyster Opener Relationship Specialty Start Date End Date Shawna Couch MD PCP - General Family Medicine 02/16/17 [address] [place] [address] documented as of this encounter
--- OUTSIDE RECORDS SUMMARY | 2022-03-07 01:39 | XMS_ITS | Encounter Summary ---
:1940 Author Organization [facility] [place] [address] Care Team Providers Name Role Phone Shawna Couch MD Primary Care Provider Encounter Details Date Type Department Care Team Description 08/21/2017 Telephone Dermatology at [facility] Kelly Pena MD [address] [place] [address] [facility]DER[facility] [phone] [place], [place] [address] (Wo rk) Social History Tobacco Use Types Packs/Day Years Used Date Never Smoker Smokeless Tobacco: Never Used Alcohol Use Standard Drinks/Week Comments No 0 (1 standard drink = 0.6 oz pure alcoho l) Sex Assigned at Date Recorded Not on file documented as of this encounter Miscellaneous Notes Telephone Encounter - Brittney Wallace - 08/24/2017 1:34 PM EST Hoda contacted the clinic today with a question regarding her predniSONE (DELTASONE) 20 mg Tablet Please call her at [phone] as soon as possible. Telephone Encounter - Tamra Smith - 08/21/2017 1:49 PM EST Patient Hoda Peoples had some questions concerning her last appt. documented in this encounter Plan of Treatment Not on filedocumented as of this encounter Visit Diagnoses Not on filedocumented in this encounter Care Teams Manager Of Network Relationship Specialty Start Date End Date Shawna Couch MD PCP - General Family Medicine 02/16/17 [address] [place] [address] documented as of this encounter
--- OUTSIDE RECORDS SUMMARY | 2022-03-07 01:39 | XMS_ITS | Encounter Summary ---
:1940 Author Organization [facility] [place] [address] Care Team Providers Name Role Phone Shawna Couch MD Primary Care Provider Encounter Details Date Type Department Care Team Description 08/20/2017 Telephone Dermatology at [facility] Yossi Hernandez MD [address] [facility] [place] [address] [facility]DER[facility] [phone] [place], [place] [address] (Wo rk) Social History Tobacco Use Types Packs/Day Years Used Date Never Smoker Smokeless Tobacco: Never Used Alcohol Use Standard Drinks/Week Comments No 0 (1 standard drink = 0.6 oz pure alcoho l) Sex Assigned at Date Recorded Not on file documented as of this encounter Miscellaneous Notes Telephone Encounter - Yossi Hernandez - 08/20/2017 6:20 AM EST DERMATOLOGY TELEPHONE NOTE Hoda Peoples 08/20/2017 [id number] Caller: Hoda Peoples Reason for call: Chronic Urticaria History: 77 y.o. year old female. Established pt of Dr. Ramos. Received page from pt about appointment today she is having active hives with swelling of her lip and severe pruritus. Pt thought to have chronic urticaria and plan was to RTC once new hives occur to obtain a biopsy to r/o urticarial vasculitis. However, due to inclement weather the patient was unable to travel to the clinic yesterdayand would rather be treated locally in the ED. Pt denies wheezing or SOB. Denies hx of anaphylaxis and has an Epi Pen if needed. Assessment/Plan/Instructions: 1. Chronic Urticaria -no symptoms of anaphylaxis of angioedema leading to airway compromise -currently off all medications -pt [place] 2h[place] away is planning to go to local ED to be treated; will attempt to obtain a biopsy while there and have the [place] [facility] [place] Yossi Hernandez MD Dermatology Resident documented in this encounter Plan of Treatment Not on filedocumented as of this encounter Visit Diagnoses Not on filedocumented in this encounter Care Teams Property Utilization Manager Relationship Specialty Start Date End Date Shawna Couch MD PCP - General Family Medicine 02/16/17 [address] [place] [address] documented as of this encounter
--- OUTSIDE RECORDS SUMMARY | 2022-03-07 01:39 | XMS_ITS | Encounter Summary ---
:1940 Author Organization [facility] [place] [address] Care Team Providers Name Role Phone Shawna Couch MD Primary Care Provider Reason for Visit Reason Comments Urticaria Encounter Details Date Type Department Care Team Description 08/13/2017 Office Visit Allergy at [facility] Apple Dawkins Rash; [facility] Angioedema, subsequent encounter; [facility] [place] [address] ALLERGY AND [phone] [facility] [place], [place] [address] Social History Tobacco Use Types Packs/Day Years Used Date Never Smoker Smokeless Tobacco: Never Used Alcohol Use Standard Drinks/Week Comments No 0 (1 standard drink = 0.6 oz pure alcoho l) Sex Assigned at Date Recorded Not on file documented as of this encounter Last Filed Vital Signs Vital Sign Reading Time Taken Comments Blood Pressure 127/63 08/13/2017 12:44 PM EST Pulse 66 08/13/2017 12:44 PM EST Temperature - - Respiratory Rate - - Oxygen Saturation - - Inhaled Oxygen Concentration - - Weight 66.7 kg (147 lb) 08/13/2017 12:44 PM EST Height 170.2 cm (5' 7) 08/13/2017 12:44 PM EST Body Mass Index 23.02 08/13/2017 12:44 PM EST documented in this encounter Patient Instructions Patient InstructionsApple Dawkins MD - 08/13/2017 1:00 PM EST - continue Zantac 150mg twice daily - Continue montelukast 10mg nightly - Change ZYRTEC to 10mg twice daily - Start [...] Avoid foods that contain and release histamine ( see attached list) - Schedule a follow up visit two weeks after having your skin biopsy. documented in this encounter Progress Notes Apple Dawkins MD - 08/13/2017 1:00 PM EST Chief Complaint Patient presents with ??? Urticaria HPI. Hoda Peoples Is here today for a follow up visit for second opinion regarding her chronic urticaria. Last encounter in this section was on 07/20/[address] Rodriguez. Patient accompanied by her friend, Ms. Maolne. The patient has had intermittent hives since 02/2017. The hives have increased in severity over this time period. In 02/2017, she had pink raised pruritic lesions that were consistent with welts. However, most recently she has had well circumscribed lesions. 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 The rash became burning and painful. The hives last for a few days. The hives initially did not bruise, however, the hives started to develop bruises. No physical urticaria. She tried hydroxyzine and had angioedema of the lips without any difficulty breathing or tongue swelling. She was seen in the [facility] ED on 08/02/17 and was treated with oral steroids. Her rash resolved after her treatment with steroids. Her hives improved while she was taking Zyrtec 20mg twice daily, Zantac 150mg twice daily and Singulair. She takes Benadryl as needed for hives. She tolerates the Benadryl with mild sedation. The patient has stopped the hydroxyzine because she suspects it triggered the angioedema. She does not think the angioedema was related to the chronic urticaria because she did not have angioedema with the hivesprior to starting hydroxyzine. The patient thinks she may of taken ibuprofen prior to her angioedemabecause her skin lesions were painful. She was treated with prednisone in Mar with no relief of the hives. She took prednisone in May2017 with resolution of hives for two weeks. She thinks she was on a third course of oral steroids, date unknown to the patient. She has tried modifying and eliminating foods from her diet without any change in the hives. She takes ibuprofen if hives are painful with improvement in pain. Cold compresses help improve the pain associated with the hive, but the rash persists. Patient had episode of hives and angioedema of the eyelids and lips three years ago. No association with viral illness. In Feb, the ropinirole dose was increased. She tried stopping it and there was no change in hives. She has decreased how often she has used the ropinirole. No food trigger for hives. No change in detergents, soaps, moisturizers, cosmetics. No pets. No sick contacts. No B symptoms. No Hematuria. Patient has a history of palpitations. She takes propranolol prn palpitations. Last used about one year ago. She is on aspirin 81mg every other day because of palpitations. Has EpiPen. Expires July 2018. No personal history of autoimmune disorder, cancer or thyroid disorder. Family history: No chronic urticaria or angioedema. Patient does not wish to be on Xolair because of side effect profile. Dr. Rodriguez's assessment and plan from her last visit on 07/20/2017: ASSESSMENT AND PLAN: 77 y.o. female with [...] think Xolair has the best safety profile. Review of Systems: All other systems reviewed and negative, except as noted below. Review of Systems Skin: Positive for rash. All other systems reviewed and are negative. Allergies, medications, past medical/ surgical history were reviewed and updated in eDH. Allergies: Aricept [donepezil]; Hydroxyzine; and Exelon [rivastigmine tartrate] Medications: Outpatient Prescriptions Marked as Taking for the 08/13/17 encounter (Office Visit) with Renetta Dawkins MD Medication Sig Dispense Refill ??? omega 1-tgg-tns-fish oil 600 mg-216 mg- 324 mg-1,200 mg Capsule, Delayed Release(E.C.) Take by mouth daily. ??? cholecalciferol, Vitamin D3, 1,000 unit Capsule Take by mouth daily. ??? cyanocobalamin 1,000 mcg Tablet Take 1,000 mcg by mouth daily. ??? CALCIUM CARBONATE (CALCIUM 500 ORAL) Take 1,000 mg by mouth. ??? FLUoxetine (PROZAC) 20 mg Tablet Take 20 mg by mouth daily. ??? [DISCONTINUED] cetirizine (ZYRTEC) 1 mg/mL Solution Take 20 mLs by mouth 2 times daily. 473 mL 12 ??? propranolol (INDERAL) 10 mg Tablet Take [...] Exam: Vital signs reviewed. Most Recent Vitals: 08/13/17 1244 BP: 127/63 Pulse: 66 Normal Except General: - No apparent distress [...] Judgement and insight intact Tests or Procedures: Component Latest Ref Rng & Units 07/20/2017 Glucose Lvl 65 - 199 mg/dL 90 BUN 8 - 18 mg/dL 20 (H) Creatinine 0.70 - 1.20 mg/dL 0.70 Sodium 135 - 145 mmol/L 138 Potassium 3.5 - 5.0 mmol/L 4.0 Chloride 98 - 107 mmol/L 101 CO2 22 - 31 mmol/L 26 Anion Gap 5 - 15 mmol/L 11 Calcium 8.5 - 10.5 mg/dL 8.8 Total Protein 6.1 - 8.0 gm/dL 6.9 Albumin 3.2 - 5.2 gm/dL 4.0 AST 0 - 30 unit/L 28 ALT 0 - 30 unit/L 25 Alk Phos 40 - 104 unit/L 48 Total Bilirubin 0.2 - 1.3 mg/dL 0.2 Estimated GFR >=60 >60 Sed Rate 0 - 20 mm/hr 8 WILMAN Neg Neg RF <=14 IU/mL <10 Complement Total 30 - 75 unit/mL [address] Rodriguez's documentation, patient had the following normal/ negative labs: TSH ( 1.64 UUIU/mL on 07/23/17), Hgb, Hct and ferritin levels at [facility]. Impression Report Plan: 1. Rash 2. Angioedema, subsequent encounter 3. On aspirin at home - Reviewed the patient's pictures of her rashes. 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 Discussed with patient the differences in pathogeneses, diagnosis and management between CIU and urticarial vasculitis. She is scheduled for skin biopsy later this month to further evaluate for urticarial vasculitis. Reviewed associated disorders with CIU including autoimmune disorders, hematologic, and thyroid disorders. Reviewed labs from 07/20/17 which were negative for WILMAN and RF and thus an underlying autoimmunedisorder is unlikely. She has noticed certain foods may worsen hives and this may be secondary to his tamine release triggered by the foods. She is on a daily aspirin, however, she has not noticed any correlation of her hives and angioedema being triggered by the aspirin. - Depending on the patient's skin biopsy results further management can be determined. Patient is not interested in trying Xolair after reviewing indication, risks and benefits for CIU. Recommend trialof Plaquenil or dapsone as alternatives. Reviewed risks and beneftis for both including laboratory and eye care provider followup. Will also need to check for G6PD prior to starting either medication. If she is diagnosed with urticarial vasculitis, management will be transitioned to dermatology or rheumatology services. - Will check C1q immune complex, C3, C4 levels for vasculitis - Will check TPO ab and thyroglobulin ab for autoimmune thyroid disease - Will check SPEP to evaluate for monoclonal proteinemia as a cause for hives - Continue ranitidine 150mg BID and montelukast 10mg nightly - Change cetirizine 10mg to twice daily - Start loratadine 10mg twice daily. -Discussed off label usage ( not FDA approved) of antihistamines at these doses for the management of urticaria -Continue Benadryl 25 mg every 6 hours as needed for hives and itchiness. -Reviewed sedative effect of antihistamines. -Always have epinephrine autoinjector available. Reviewed administration technique and storage of epinephrine. -Avoid NSAIDs except for aspirin 81 mg daily -Avoid flexion, hot showers and alcohol -Avoid foods that contain and release histamine. Patient provided with a list of foods to try to avoid. Orders Placed This Encounter Procedures ??? Thyroid peroxidase antibody ??? Thyroglobulin Antibody ??? [id number] Qualitative ??? C3 Complement ??? C4 Complement ??? C1q Immune Complex ??? Protein Electrophoresis, serum Medication ordered or changed during this encounter, will not show discontinued medications Medications ??? cetirizine (ZYRTEC) 10 mg Tablet Sig: Take 1 tablet by mouth 2 times daily. Dispense: 180 tablet Refill: 3 ??? loratadine (CLARITIN) 10 mg Tablet Sig: Take 1 tablet by mouth 2 times daily. Dispense: 180 tablet Refill: 3 Return in about 3 weeks (around 09/03/2017), or if symptoms worsen or fail to [...] what was discussed. All questions were answered. Start time: 1:07 pm End time: 2:14 pm Total time: 1 hour and 7 minutes. 50 minutes of this visit was spent reviewing laboratory workup and recommendations from Dr. Rodriguez, further evaluation and management. Reviewed the pathogenesis, diagnosis and management of chronic idiopathic urticaria and urticarial vasculitis. Reviewed administration, inidcations, risks and benefits of Xolair and alternatives including Plaquenil, dapsone and cyclosporine. documented in this encounter Plan of Treatment Not on filedocumented as of this encounter Procedures Procedure Name Priority Date/Time Associated Comments Diagnosis THYROGLOBULIN ANTIBODY Routine 08/13/2017 2:46 PM Rash Results for this EST Angioedema, procedure are i n subsequent the results encounter section. GLUC-6-PD QUAL Routine 08/13/2017 2:46 PM Rash Results for this EST Angioedema, procedure are i n subsequent the results encounter section. C1Q IMMUNE COMPLEX Routine 08/13/2017 2:46 PM Rash Results for this EST Angioedema, procedure are i n subsequent the results encounter section. THYROID PEROXIDASE Routine 08/13/2017 2:46 PM Rash Results for this ANTIBODY EST Angioedema, procedure are i n subsequent the results encounter section. C3 COMPLEMENT Routine 08/13/2017 2:46 PM Rash Results for this EST Angioedema, procedure are i n subsequent the results encounter section. C4 COMPLEMENT Routine 08/13/2017 2:46 PM Rash Results for this EST Angioedema, procedure are i n subsequent the results encounter section. PROTEIN Routine 08/13/2017 2:46 PM Rash Results for this ELECTROPHORESIS, SERUM EST Angioedema, proce dure are in subsequent the results encounter section. documented in this encounter Results Protein Electrophoresis, serum (08/13/2017 2:46 PM EST) Patholo gist Method Time Signature Total Prot 7.1 6.1 - 8.0 [facility] Ele[facility] gm/dL [facility] Albumin Elect 4.62 3.60 - [facility] Alpha1-Globul 0.18 0.10 - [place] DELICIA in 0.30 [facility] Alpha2-Globul 0.77 0.40 - [facility] DELICIA in 0.90 [facility] Beta Globulin 0.70 0.50 - [facility] 1.00 [facility] Gamma 0.83 0.50 - [facility] Globulin 1.30 [facility] M1 Band None [facility] Detected [facility] Specimen Anatomical Collection Method Collection Time Receive d Time (Source) Location / / Volume Laterality Blood specimen 08/13/2017 2:46 PM 018 2:50 (specimen) EST PM EST Resulting Agency Comment Spec In Lab Apple Dawkins MD CHEMISTRY ORDERABLES Performing Organization Address City/State/[place] [address] C1q Immune Complex (08/13/2017 2:46 PM EST) P athologist Signature C1q Immune <1.2 <=25.1 mcg [facility] DELICIA Complex Eq/mL [facility] Comment: Test Performed by [facility], [address] [place], [place] [address] Brendon Dolan M.D., Ph.D., Director [facility] [place] , [facility] [id number] Specimen Anatomical Collection Method Collection Time Receive d Time (Source) Location / / Volume Laterality Blood specimen 08/13/2017 2:46 PM 018 4:53 (specimen) EST PM EST Resulting Agency Comment Spec In Lab Apple Dawkins MD CHEMISTRY ORDERABLES Performing Organization Address City/[facility] Phon e Number [address] C4 Complement (08/13/2017 2:46 PM EST) P athologist Signature C4 Complement 23 10 - 40 [facility] mg/dL [facility] Specimen Anatomical Collection Method Collection Time Receive d Time (Source) Location / / Volume Laterality Blood specimen 08/13/2017 2:46 PM 018 2:50 (specimen) EST PM EST Resulting Agency Comment Spec In Lab Apple Dawkins MD CHEMISTRY ORDERABLES Performing Organization Address [facility] Phon e Number [address] C3 Complement (08/13/2017 2:46 PM EST) P athologist Signature C3 Complement 121 90 - 180 [facility] mg/dL [facility] Specimen Anatomical Collection Method Collection Time Receive d Time (Source) Location / / Volume Laterality Blood specimen 08/13/2017 2:46 PM 018 2:50 (specimen) EST PM EST Resulting Agency Comment Spec In Lab Apple Dawkins MD CHEMISTRY ORDERABLES Performing Organization Address City/[facility] Phon e Number [address] [id number] Qualitative (08/13/2017 2:46 PM EST) Patholo gist Method Time Signature G6PD Qual Negative [facility] screening for [address] [facility] deficiency. LABORATORY Specimen Anatomical Collection Method Collection Time Receive d Time (Source) Location / / Volume Laterality Blood specimen 08/13/2017 2:46 PM 018 2:50 (specimen) EST PM EST Resulting Agency Comment Spec In Lab Apple Dawkins MD HEMATOLOGY ORDERABLES Performing Organization Address City/[facility]/[place] [address] Thyroglobulin Antibody (08/13/2017 2:46 PM EST) athologist Signature Thyroglob Ab <20.0 0.0 - 40.0 [facility] IU/mL [facility] Comment: Assay performed is the [facility] Immulite Tg-A b immunometric assay. (Cutoff for TgAb negativity is <20 IU/ml ) Specimen Anatomical Collection Method Collection Time Receive d Time (Source) Location / / Volume Laterality Blood specimen 08/13/2017 2:46 PM 018 2:50 (specimen) EST PM EST Resulting Agency Comment Spec In Lab Apple Dawkins MD CHEMISTRY ORDERABLES Performing Organization Address City/[facility]/ZIP Code Phon e Number [address] Thyroid peroxidase antibody (08/13/2017 2:46 PM EST) athologist Signature Thyroperox Ab <10 <=34 IU/mL [facility] Specimen Anatomical Collection Method Collection Time Receive d Time (Source) Location / / Volume Laterality Blood specimen 08/13/2017 2:46 PM 018 2:50 (specimen) EST PM EST Resulting Agency Comment Spec In Lab Apple Dawkins MD IMMUNOLOGY ORDERABLES Performing Organization Address City/[facility]/ZIP [facility] Phon e Number [address] documented in this encounter Visit Diagnoses Diagnosis Rash Rash and other nonspecific skin eruption Angioedema, subsequent encounter On aspirin at home documented in this encounter Care Teams Penology Professor Relationship Specialty Start Date End Date Shawna Couch MD PCP - General Family Medicine 02/16/17 [address] [place] [address] documented as of this encounter
--- OUTSIDE RECORDS SUMMARY | 2022-03-07 01:39 | XMS_ITS | Encounter Summary ---
:1940 Author Organization [facility] [place] [address] Care Team Providers Name Role Phone Yaritza Rodriguez APRN Primary Care Provider Encounter Details Date Type Department Care Team Description 05/05/2016 Orders Only Psychiatry and Behavioral Darren Argueta MD [facility] [place] [address] [place] [address] [phone] (Wo rk) Social History Tobacco Use Types Packs/Day Years Used Date Never Smoker Alcohol Use Standard Drinks/Week Comments No 0 (1 standard drink = 0.6 oz pure alcoho l) Sex Assigned at Date Recorded Not on file documented as of this encounter Progress Notes Darren Argueta MD - 05/05/2016 4:21 PM EDT Received staff message regarding patient Remeron refill request. Appointment scheduled on 05/27/16. Script sent to [facility], patient's preferred pharmacy. documented in this encounter Plan of Treatment Not on filedocumented as of this encounter Visit Diagnoses Not on filedocumented in this encounter Care Teams Gate Watchman Relationship Specialty Start Date End Date Yaritza Rodriguez APRN PCP - General 06/04/10 02/15/17 documented as of this encounter
--- OUTSIDE RECORDS SUMMARY | 2022-03-07 01:39 | XMS_ITS | Encounter Summary ---
:1940 Author Organization [facility] [place] [address] Care Team Providers Name Role Phone Shawna Couch MD Primary Care Provider Reason for Visit Reason Onset Date Comments Other 08/04/2017 Encounter Details Date Type Department Care Team Description 08/04/2017 Telephone Allergy at [facility] Kiarra [place] [address] Social History Tobacco Use Types Packs/Day Years Used Date Never Smoker Smokeless Tobacco: Never Used Alcohol Use Standard Drinks/Week Comments No 0 (1 standard drink = 0.6 oz pure alcoho l) Sex Assigned at Date Recorded Not on file documented as of this encounter Miscellaneous Notes Telephone Encounter - Kiarra Landaverde LPN - 08/04/2017 10:29 AM EST Went over the directions with patient on how to take her medications for the hives. Pt states that Dermatology told her that next time she has hives that she can call them. Pt states that she can come in the day of her hives to have the biopsy done. Telephone Encounter - Kiarra Landaverde LPN - 08/04/2017 10:29 AM EST ----- Message from Randa Rodriguez MD sent at 08/04/2017 9:43 AM EST ----- Contact: Self Per my note: increase zyrtec to 20mg twice a day - continue ranitidine 150mg twice a day - continue singulair 10mg at night If 2 weeks go by and still getting hives, ADD hydroxyzine 25mg at night. ----- Message ----- From: Opal Chase Sent: 08/04/2017 9:38 AM To: Kiarra Landaverde LPN, Randa Rodriguez MD These notes are now in 's mailbox. ----- Message ----- From: Kiarra Landaverde LPN Sent: 08/04/2017 9:04 AM To: Opal Chase Need ER notes from [facility] in [facility] ----- Message ----- From: Maiar Medel Sent: 07/31/2017 1:52 PM To: Kati Allergy Nurse She was calling because the pharmacy has her prescription as taking 1 a night but she thought Dr. Rodriguez wanted her to take 3 or 4. She just wanted to clarify the prescription. She can be reached at [phone]. Telephone Encounter - Kiarra Landaverde LPN - 08/04/2017 9:05 AM EST Pt called to report that she took the Hydroxyzine 25 mg on 08/01/2017. She woke up the next day and her lips were swollen. Pt went to the Emergency room at [facility] in [facility]. Pt feels that she had a allergicreaction to the Hydroxyzine. Pt also reports that her hives are getting bigger and pain full. Asked secretary to board of commissioners to please obtain emergency room records from 08/02/2017. Pt also reports that she has been taking Singulair 2 tabs at bedtime. Let patient know that she is to take only 1 Singulair at bedtime not 2 tablets. Pt verbalized her understanding that she is to takeonly 1 Singulair at bedtime. Telephone Encounter - Kiarra Landaverde LPN - 08/04/2017 9:05 AM EST ----- Message from Maira Medel sent at 07/31/2017 1:52 PM EST ----- Contact: Self She was calling because the pharmacy has her prescription as taking 1 a night but she thought Dr. Rodriguez wanted her to take 3 or 4. She just wanted to clarify the prescription. She can be reached at [phone]. documented in this encounter Plan of Treatment Not on filedocumented as of this encounter Visit Diagnoses Not on filedocumented in this encounter Care Teams Appraisal Specialist Relationship Specialty Start Date End Date Shawna Couch MD PCP - General Family Medicine 02/16/17 [address] [place] [address] documented as of this encounter
--- OUTSIDE RECORDS SUMMARY | 2022-03-07 01:39 | XMS_ITS | Encounter Summary ---
:1940 Author Organization [facility] [place] [address] Care Team Providers Name Role Phone Shawna Couch MD Primary Care Provider Reason for Visit Reason Comments Procedure Encounter Details Date Type Department Care Team Description 08/20/2017 Office Visit Dermatology at [facility] Kelly Pena ves; Fanta Murguia MD Neoplasm of uncertain behavior of skin [address] [place] [address] [facility] [place], [place] [address] Social History Tobacco Use Types Packs/Day Years Used Date Never Smoker Smokeless Tobacco: Never Used Alcohol Use Standard Drinks/Week Comments No 0 (1 standard drink = 0.6 oz pure alcoho l) Sex Assigned at Date Recorded Not on file documented as of this encounter Patient Instructions Patient InstructionsClLucy queen - 08/20/2017 11:20 AM EST Instructions for Hoda: - Re-start antihistamines today and stay on them. - Rx: Prednisone 20 mg - take 3 tablets every am x 5 days, 2 tablets every am x 5 days. Treatment and Wound Care Instructions Your treatment today: You have had two punch biopsies of your skin, which are a removal of tissue for examination under a microscope. There are stitches in the wounds that will need to be removed in 10-14 days. If bleeding occurs, hold firm pressure against the wounds for 15 minutes. If bleeding continues, call the office or go to your local emergency room. Please allow 1-2 weeks for the biopsy results to return. Your physician or nurse will contact you with the results by phone or letter; follow-up will be discussed at that time. Wound Care Instructions: You will need to keep the dressing placed over the wounds dry and intact for 24 hours. Afterwards, perform the following wound care daily until your stitches are removed: ?? Wash your hands before changing the dressings. ?? Remove the bandages and clean the area with mild soap and water, then gently pat the areas dry. ?? Apply a small amount of Vaseline to the areas, then cover the wounds with band-aids. Change your dressings daily until the wounds are fully healed. ?? A small amount of yellow drainage is part of normal healing. You might notice some redness aroundthe edge of the wounds. This is normal. ?? Please contact the office you you notice any of the following signs of infection: increased tenderness, pain, drainage, or redness that becomes hot or hard around the wounds. If you have further questions or concerns, please call the office at [phone]. If it is after 5PM, or a holiday or weekend, please call [phone] and ask for the Curriculum Coordinator on-call. documented in this encounter Progress Notes Kelly Pena MD - 08/20/2017 11:20 AM EST Images from the original note were not included. DERMATOLOGY - ESTABLISHED PATIENT FOLLOW-UP Date of service: 08/20/2017 Hoda Peoples : 1940, 77 y.o. Preferred name: Hoda Preferred contact method with results: Home phone Message okay: Yes (but prefers to discuss results) CC: chronic urticaria HPI: Hoda Peoples is a 77 y.o. female with a history of chronic urticaria, anxiety and memory problems last seen by myself on 07/23/2017. She is here with her today for a biopsy of a fresh Urticarial lesion. She was seen this am in the ER of [facility]. She has had lip and facial swelling. She has hives all over today. She was concerned that she was going to have difficulty breathing this morning, so she went to the [facility] ER. She stopped taking her antihistamines this past Thursday, and Thursday the urticaria started flaring up. She notes she has switched her care to Dr. Dawkins in allergy for a second opinion. - Denies SOB, tongue swelling, or diarrhea currently. Review of Systems: - General: Feels well. - Positive for chills today. - Denies recent fever. - Denies recent stomach upset or diarrhea. - Skin: No other skin concerns. Relevant Skin History: Skin cancer (including type): no - Chronic urticaria since Feb 2017 managed by allergy ?? Family History: Melanoma: no ?? 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 omega 5-mtt-cpz-fish oil 600 mg-216 mg- 324 mg-1,200 mg [...] 2 times daily. 180 tablet 3 ??? LORazepam (ATIVAN) 1 mg Tablet Take [...] No current facility-administered medications for this visit. Allergies: Allergies Allergen Reactions ??? Aricept [Donepezil] Nausea And Vomiting ??? Hydroxyzine Angioedema ??? Exelon [Rivastigmine Tartrate] Nausea And Vomiting Patient states that the capsules made her vomit. Patient tolerates the patch Examination: - Constitutional: Patient was alert, well-appearing and in no noticeable distress. - Skin: Skin examination of the scalp, face, ears, neck, back, chest, abdomen, right and left upper extremities, right and left lower extremities, hands and buttocks was normal with the exception of the findings listed below. Genitalia were not examined. Diagnosis/Skin findings/Assessment/Plan: 1. 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 Ones on anterior thighs have purpuric quality. Procedure: Skin biopsy by punch technique. Lesion sent for H&E. Location: Right anterior thigh (A) Discussed indications for the procedure and expectations including risks and benefits. Verbal consent obtained. Skin prep with alcohol. Local anesthesia: 1% lidocaine with 1/100,000 epinephrine. A 4.0 mm punch biopsy to the level of the subcutis was performed. Wound closed with monofilament suture. There were no complications; the patient tolerated the procedure well. The wound was dressed. Post-procedure expectations (including discomfort management), wound care and activity restrictions were reviewed. Follow-up based on pathology results. Suture removal: 10-14 days Procedure: Skin biopsy by punch technique. Lesion sent for DIF. Location: Right anterior thigh (B) Discussed indications for the procedure and expectations including risks and benefits. Verbal consent obtained. Skin prep with alcohol. Local anesthesia: 1% lidocaine with 1/100,000 epinephrine. A 4.0 mm punch biopsy to the level of the subcutis was performed. Wound closed with monofilament suture. There were no complications; the patient tolerated the procedure well. The wound was dressed. Post-procedure expectations (including discomfort management), wound care and activity restrictions were reviewed. Follow-up based on pathology results. Suture removal: 10-14 days - Re-start antihistamines today and stay on them. - Rx: Prednisone 20 mg - take 3 tablets every am x 5 days, 2 tablets every am x 5 days. Patient is on rivastigmine for memory. No hx of myasthenia gravis. Reviewed if she develops profound weakness, she should stop the steroids. RTC: based on pathology results. The following photos were obtained with patient consent: Note initiated by KARLOS GIBBONS LPN. I am documenting this encounter acting as the scribe for and in the presence of MD Lucy Matos is documenting this encounter acting as the scribe for and in the presence of Kelly Pena MD I performed the above scribed service and agree with the accuracy of the documentation in this encounter. Reviewed and signed by: Kelly Pena MD Resident in Dermatology [facility] Patient seen and evaluated with staff field crop ii farmworker: Travis Underwood MD Section of Dermatology [facility] Travis Underwood MD - 08/20/2017 11:20 AM EST I directly supervised Dr. Pena in the care of this patient. I saw and evaluated this patient with Dr. Pena. She presented the history and physical exam details to me, then we saw the patient together and I confirmed these findings. I agree with details as written. My physical examination confirms Dr. Pena's findings. The assessment and plan were formulated in discussion with me at the time of visit and I agree with them as documented. TRAVIS UNDERWOOD MD FAAD Staff Physician documented in this encounter Plan of Treatment Not on filedocumented as of this encounter Procedures Procedure Name Priority Date/Time Associated Diagnosis Comme nts SPECIMEN TO Routine 08/20/2017 12:00 PM Neoplasm of Results for this PATHOLOGY EST uncertain behavior procedure are in of skin the results section. SURGICAL PATHOLOGY Routine 08/20/2017 11:59 AM Re sults for this REPORT EST procedure are i n the results section. documented in this encounter Results Specimen to Pathology (08/20/2017 12:00 PM EST) Specimen Anatomical Collection Method Collection Time Receive d Time (Source) Location / / Volume Laterality AP Specimen 08/20/2017 12:00 08/20/2017 4:03 PM EST PM EST Narrative [facility] - 08/20/2017 4:03 PM EST Specimen requisition ordered. ??Separate Pathology report to follow Resulting Agency Comment Spec In Lab Travis Underwood MD PATHOLOGY/CYTOLOGY ORDERABLE S Performing Organization Address City/State/ZIP Code Phon e Number [place] [id number] Surgical Pathology Report (08/20/2017 11:59 AM EST) Component Value Ref Test Analysis Performed At Patholo gist Range Method Time Signature Surgical [id number] ? Location: [facility] Report The signing pathologist has (i) examined the relevant preparation(s) for the [facility] specimen(s) and (ii) rendered or confirmed the diagnosis(es) . HOSPITAL LAB[facility]ORY . ? Addendum ADDENDUM DISCUSSION Final Impression: No specific immunoreactants detected. Direct IF Findings, Interpretation No specific immunoreactants detected for IgA, IgG, IgM, C3, albumin, or fibrinogen. Specimen Processing A 4 mm punch biopsy was rece ived in a tube of Anthony ?Janae 's transport medium. Frozen sections, cut at 4 microns, were stained by direct immunofluorescence (IF). Sections were treated with fluoresce in labeled antibodies to the following immunoreactants: IgG, IgA, IgM, fibrinogen a nd C3. The antibody to albumin is used as a negative control. Immune Deposits, Objective Findings This biopsy includes skin wi th epidermis and dermis. Direct IF studies of this skin biopsy specimen reveal no specific staining pattern. Clinical History: Flanks, upper extremities, l eft breast, anterior thighs: [place] edematous papules and plaques. Ones on anterior thighs have purpuric quality. 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 of Pathology, [place], [place] ?Surgic al Pathology DIAGNOSIS A - Skin, right anterior thigh, punch biopsy: ??Superficial and deep kian vascular and interstitial mixed infiltrate of neutrophils, eosinophils and lymphocytes, dermal edema (see discussion). B - Skin, right anterior thigh, DIF-lesional, punch biopsy: The specimen has been entire ly submitted for direct immunofluorescence studies. ??The results will be reported in an addendum. Electronically signed by: ??Maikel LAMA, PhD, Kristi Verified: ??08/26/2017 ?Dermatopathologist Performed at: ??-[facility] Dept. 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 ? Diagnostic features of leukocytoclasti c vasculitis are not seen in the biopsy. If the clinical suspicion for urticarial va sculitis persists, clinical work up may be considered. CLINICAL INFORMATION Specimen Submitted: A - Skin, right anterior thigh, punch (1) B - Skin, right anterior thigh, DIF-lesional, punch (1) . CLINICAL INFORMATION Clinical History: Flanks, upper extremities, l eft breast, anterior thighs: [place] edematous papules and plaques. Ones on anterior thighs have purpuric quality. Clinical Diagnosis: Chronic urticaria v urticarial vasculitis SPECIMEN PROCESSING A - Labeled/Fixative: Right anterior thigh, formalin. Quantity/Size: Single, 0.4 cm. Tissue Description: Punch of red skin. Sections/Processing: Bisected. (T1) B - Labeled/Fixative: Right anterior thigh, Anthony ?? 's tra nsport medium. Quantity/Size: Single, 0.4 cm. Tissue Description: Punch of right skin. Sections/Processing: Bisecte d and entirely submitted for DIF studies. (T1) ??sns Specimen (Source) Anatomical Collection Method Collection Time Re ceived Time Location / / Volume Laterality 08/20/2017 11:59 AM EST Kelly Pena MD PATHOLOGY/CYTOLOGY ORDERABLE S Performing Organization Address City/State/ZIP Code Phon e Number [address] LABORATORY [facility] documented in this encounter Visit Diagnoses Diagnosis Hives Urticaria, unspecified Neoplasm of uncertain behavior of skin documented in this encounter Care Teams Barrel Tester And Drainer Relationship Specialty Start Date End Date Shawna Couch MD PCP - General Family Medicine 02/16/17 [address] [place] [address] documented as of this encounter
--- OUTSIDE RECORDS SUMMARY | 2022-03-07 01:39 | XMS_ITS | Encounter Summary ---
:1940 Author Organization [facility] [place] [address] Care Team Providers Name Role Phone Shawna Couch MD Primary Care Provider Encounter Details Date Type Department Care Team Description 07/14/2017 Telephone Allergy at [facility] Randa Rodriguez MD [facility] [place] [phone] ALLERGY DEPT [phone] [place], [place] [address] (Wo rk) Social History Tobacco Use Types Packs/Day Years Used Date Never Smoker Smokeless Tobacco: Never Used Alcohol Use Standard Drinks/Week Comments No 0 (1 standard drink = 0.6 oz pure alcoho l) Sex Assigned at Date Recorded Not on file documented as of this encounter Miscellaneous Notes Telephone Encounter - Diego Nunn LPN - 07/14/2017 1:39 PM EST Phone call to pt, returning call from pt from earlier this morning. Pt reports hives continue as before. Pt wants to know if there is something else she can take. Pt reports Zyrtec 10mg bid, Zantac 150mg bid, and Singulair once daily. After review of MD Michael office note, pt is advised to schedule follow up appt to discuss with provider. Pt agrees to plan and is transferred to scheduling. Telephone Encounter - Diego Nunn LPN - 07/14/2017 1:39 PM EST ----- Message from Opal Chase sent at 07/14/2017 10:27 AM EST ----- Is getting hives again despite taking meds; is there another medication that she can take? documented in this encounter Plan of Treatment Not on filedocumented as of this encounter Visit Diagnoses Not on filedocumented in this encounter Care Teams Mechanical Sound Technician Relationship Specialty Start Date End Date Shawna Couch MD PCP - General Family Medicine 02/16/17 [address] [place] [address] documented as of this encounter
--- OUTSIDE RECORDS SUMMARY | 2022-03-07 01:40 | XMS_ITS | Encounter Summary ---
:1940 Author Organization [facility] [place] [address] Care Team Providers Name Role Phone Yaritza Rodriguez JAILENE Primary Care Provider Encounter Details Date Type Department Care Team Description 11/08/2015 Telephone Psychiatry and Behavioral Irasema Gambino MD Health at [facility] [place] [address] [place] [address] [phone] (Wo rk) Social History Tobacco Use Types Packs/Day Years Used Date Never Smoker Alcohol Use Standard Drinks/Week Comments No 0 (1 standard drink = 0.6 oz pure alcoho l) Sex Assigned at Date Recorded Not on file documented as of this encounter Miscellaneous Notes Telephone Encounter - Irasema Gambino MD - 11/08/2015 1:25 PM EDT The patient requested a 90 day refill of Mirtazapine 15 mg/qhs given that it is a mail order service. We discussed today how that is working and she reports decreased anxiety and feeling pretty good.She has tapered her use of Ativan at and is now taking it only once or twice a week, anticipatingto fully be off it in the next weeks. She doesn't want to increase her dose of Mirtazapine now but would rather discuss with her new doctor in January. I have sent a #90 tablet prescription to the pharmacy. documented in this encounter Plan of Treatment Not on filedocumented as of this encounter Visit Diagnoses Not on filedocumented in this encounter Care Teams Pulpwood Cutter Relationship Specialty Start Date End Date Yaritza Rodriguez APRN PCP - General 06/04/10 02/15/17 documented as of this encounter
--- OUTSIDE RECORDS SUMMARY | 2022-03-07 01:40 | XMS_ITS | Encounter Summary ---
:1940 Author Organization [facility] [place] [address] Care Team Providers Name Role Phone Yaritza Rodriguez Aicha DENT Primary Care Provider Encounter Details Date Type Department Care Team Description 10/09/2014 Office Visit Psychiatry and Tito Styles DO MCI (mild cognitive impairment) (Primary Dx); Behavioral Health at [facility] A nxiety state, unspecified [facility] DR [facility] [place] [address] [place], [place] [phone] (Work) [phone] Social History Tobacco Use Types Packs/Day Years Used Date Never Smoker Sex Assigned at Date Recorded Not on file documented as of this encounter Last Filed Vital Signs Vital Sign Reading Time Taken Comments Blood Pressure 119/71 10/09/2014 11:06 AM EDT Pulse 60 10/09/2014 11:06 AM EDT Temperature - - Respiratory Rate - - Oxygen Saturation - - Inhaled Oxygen Concentration - - Weight 63.5 kg (140 lb) 10/09/2014 11:06 AM EDT Height 171.5 cm (5' 7.5) 10/09/2014 11:06 AM EDT Body Mass Index 21.6 10/09/2014 11:06 AM EDT documented in this encounter Progress Notes Denia Montague MD - 10/15/2014 4:37 AM EDT I have seen the patient and reviewed the resident's above history and I agree with the details as written. The assessment and plan were formulated in discussion with me and I agree with them as documented. Tito Mccarthy CaroleDO - 10/09/2014 9:24 AM EDT [facility] FOLLOW UP NOTE Time Spent: 45 minutes Attendee(s): none This patient was seen with teaching faculty, Dr. Montague.; see attending's note for confirmatory and/or revisionary documentation. HISTORY Chief Complaint: Hoda Peoples is a 74 y.o. female presents today with med f/u HPI: () Now sure that Exelon patch was not the cause of the rash because she didn't have it despite being onExelon patch for 7 weeks. Back on the patch now since Aug 02; 2 days a week she's on oral (1.5mg qdaily) while 5 days, she's on patch (4.6mg) secondary to cost. States that she has a problem with rejection referring to friends at [employer]. Pt's was getting a medical care for pulmonary nodule. Also, adds that she had a crying spell at chiropractor's office. Has been playing a game on the computer Anxious about driving. Worries about something happening while she's driving. Never happened. Compared to last visit in this clinic: same (good) Functional Abilities (bathing, toileting; grooming, dressings; eating habits, manners; using mechanical or electronic devices; driving; doing household tasks):denies Social Skills: (conversation; involvement with family, friends; cooperation; awareness in social settings; interest in hobbies/leisure activities):being social (friends and family) Cognition (remembering names and events; finding words; keeping track of time; awareness of the environment; ability for follow instructions):good with remote events. Problematic with short term memories Mood and Behavioral Symptoms (depression, sadness; irritability; loss of interest in activities; social withdrawal; apathy; sleep difficulties; appetite chages; paranoia; hallucinations; delusions; agitation/aggression; suicidal feelings; wandering; problems with judgment; inappropriate behavior; awareness of behavioral symptoms; cooperativeness with care/treatment):low mood for about a week, which was 2 weeks ago. Back to baseline now. Other Concerns: (awareness of illness; ability/willingness to discuss symptoms, illness) Other Changes Since Last Appointment: Primary Symptom:: Quality: fair memory Severity: moderate Duration: Timing: Context: 's illness (pulmonary nodule) Modifying factors: Exelon patch helps. Associated S&S: limited short-term memory Caregiver Coping and other Considerations (describe): Current Medications: Current Outpatient Prescriptions Medication Sig Dispense Refill ??? rivastigmine (EXELON) 4.6 mg/[address] 1 patch onto the skin daily. ??? rivastigmine tartrate (EXELON) 1.5 mg Capsule Take 1 capsule by mouth 2 times daily. May take 1.5mg once a day if intolerable. (Patient taking differently: Take 1.5 mg by mouth daily. May take 1.5mg once a day if intolerable.) 60 capsule 3 ??? Melatonin 1 mg Tab Take 1 mg by mouth nightly. ??? buPROPion (WELLBUTRIN SR) 150 mg 12 hr tablet Take 150 mg by mouth 2 times daily. ??? meclizine (ANTIVERT) 25 mg tablet Take 25 mg by mouth 2 times daily as needed. ??? atenolol (TENORMIN) 25 mg tablet Take 25 mg by mouth daily. ??? cyproheptadine (PERIACTIN) 4 mg tablet Take 8 mg by mouth daily as needed. ??? LORazepam (ATIVAN) 1 mg tablet Take 1 mg by mouth nightly as needed. ??? alendronate (FOSAMAX) 70 mg tablet Take 70 mg by mouth every 7 days. Take in the morning with a full glass of water, on an empty stomach, and do not take anything else by mouth or lie down for the next 30 min. No current facility-administered medications for this visit. Pertinent Medication Side Effects: Denies Review of Systems: (07/14/09) Constitutional: Eyes: ENT: Cardiovascular: Respiratory: GI: : Musculoskeletal: Integumentary: Neurological: Psychiatric: See HPI above Endocrine: Hematologic/Lymphatic: Allergic/Immunological: See reviewed allergies PFSH: () Past Medical/Psychiatric History: Family Psychiatric and Medical History: Social History: EXAM [12/19/13 bullets (incl VS)] Constitutional System ? Vital Signs: Blood pressure 119/71, pulse 60, height 171.5 cm (5' 7.5), weight 63.504 kg (140 lb). Musculoskeletal System ? Muscle Strength/Tone (note atrophy, abnormal movements): No atrophy, abnormal movements ? Gait and Station: stable Psychiatric System ? General Appearance/Behavior: casually dressed / good eye contact ? Speech: tangential ? Thought Process: linear/goal directed ? Associations: intact ? Abnormal Thoughts and Perceptions / Thought Content: Homicidality / Violent Thoughts: denies Suicidality: denies Hallucinations: denies Delusions: denies Obsessions: denies ? Judgment and Insight: good x 2 ? Mood & Affect: good / mood congruent ? Attention/Concentration: intact ? Language: irish ? Fund of Knowledge: intact ? Cognitive Examination: CLINICIAN'S ASSESSMENT OF PATIENT AWARENESS OF ILLNESS: 3 0 none 1 mild amount 2 moderate amount 3 significant amount Other Interventions: MEDICAL DECISION MAKING ASSESSMENT: Hoda Peoples is a 74 y.o. female with MCI. Her symptoms are no change. Secondary to insurance coverage, on an unusual regimen of rivastagmine: patch (4.6mg) for 5 days and oral (1.5mg qdaily) for 2 days. Also, on bupropion 150mg bid (150mg qam with 150mg qod), which pt wishes no change. PLAN: - Rivastigmine 1.5mg bid (Mon and Thurs) - Encourage a healthy diet and exercise - Encourage being social - Learn new stuff for brain stimulation Patient Instruction/Education provided: Patient/caregiver provided verbal instructions regarding theplan. Patient/caregiver understands the plan? Yes Follow Up:3-4months documented in this encounter Plan of Treatment Not on filedocumented as of this encounter Visit Diagnoses Diagnosis MCI (mild cognitive impairment) - Primar y Mild cognitive impairment, so stated Anxiety state, unspecified documented in this encounter Care Teams Scalp Specialist Relationship Specialty Start Date End Date Yaritza Rodriguez APRN PCP - General 06/04/10 02/15/17 documented as of this encounter
--- OUTSIDE RECORDS SUMMARY | 2022-03-07 01:40 | XMS_ITS | Encounter Summary ---
:1940 Author Organization [facility] [place] [address] Care Team Providers Name Role Phone Yaritza Rodriguez JAILENE Primary Care Provider Reason for Visit Reason Onset Date Comments Medication Refill 05/16/2014 Encounter Details Date Type Department Care Team Description 05/16/2014 Refill Psychiatry and Tito Styles DO MCI (mild cognitive Behavioral Health at [facility]) (Primary Dx) [facility] PSYCHIATRY DE PT [address] [address] [phone] Social History Tobacco Use Types Packs/Day Years Used Date Never Smoker Sex Assigned at Date Recorded Not on file documented as of this encounter Miscellaneous Notes Telephone Encounter - Tito Styles DO - 05/16/2014 12:55 PM EST Talked to the pt who requested dowintitration of Exelon patch secondary to side effects: nausea, vomiting, malaise. She's now using leftover 4.6mg patch. Order changed and placed to her pharmacy in [place]. documented in this encounter Plan of Treatment Not on filedocumented as of this encounter Visit Diagnoses Diagnosis MCI (mild cognitive impairment) - Primar y Mild cognitive impairment, so stated documented in this encounter Care Teams [employer] Relationship Specialty Start Date End Date Yaritza Rodriguez APRN PCP - General 06/04/10 02/15/17 documented as of this encounter
--- OUTSIDE RECORDS SUMMARY | 2022-03-07 01:40 | XMS_ITS | Encounter Summary ---
:1940 Author Organization [facility] [place] [address] Care Team Providers Name Role Phone Yaritza Rodriguez APRN Primary Care Provider Reason for Visit Reason Onset Date Comments Medication Refill 2014 Encounter Details Date Type Department Care Team Description 2014 Refill Psychiatry and Behavioral Tito Styles DO Health at [facility] [place] [address] [place] [address] [phone] (Wo rk) Social History Tobacco Use Types Packs/Day Years Used Date Never Smoker Sex Assigned at Date Recorded Not on file documented as of this encounter Miscellaneous Notes Telephone Encounter - Tito Styles DO - 2014 4:28 PM EST Talked to her about Exelon. Can't afford it anymore because her insurance company doesn't cover its cost. Exelon oral was discussed and pt agreed to trying it. documented in this encounter Plan of Treatment Not on filedocumented as of this encounter Visit Diagnoses Not on filedocumented in this encounter Care Teams Water Quality Analyst Relationship Specialty Start Date End Date Yaritza Rodriguez APRN PCP - General 06/04/10 02/15/17 documented as of this encounter
--- OUTSIDE RECORDS SUMMARY | 2022-03-07 01:40 | XMS_ITS | Encounter Summary ---
:1940 Author Organization [facility] [place] [address] Care Team Providers Name Role Phone Yaritza Rodriguez JAILENE Primary Care Provider Reason for Visit Reason Comments Other Encounter Details Date Type Department Care Team Description 07/28/2014 Telephone Psychiatry and Behavioral Tito Styles DO Health at [facility] Leslie [place] [address] [place] [address] [phone] (Wo rk) Social History Tobacco Use Types Packs/Day Years Used Date Never Smoker Sex Assigned at Date Recorded Not on file documented as of this encounter Miscellaneous Notes Telephone Encounter - Tito Styles DO - 07/28/2014 10:44 AM EST Talked to her. Wants to go back to the patch even though it costs much. She called her pharmacy and cancelled galantamine herself and ordered a refill of the Exelon patch. i agreed. Scheduled to come for appt next month. Telephone Encounter - Tito Styles DO - 07/28/2014 10:43 AM EST ----- Message from Mihaela Quinn sent at 07/27/2014 1:45 PM EST ----- Regarding: requests call back Hoda requests a call back to discuss returning to Exelon patch. Did some online research and saidthat indicated possibility of same side effects and she would rather stick with something she knows.Please give her a call at home or cell to discuss. If you miss her at one please try the other as she will be moving around. Ouxf=[phone] Afur=[phone] Thanks. Laurie documented in this encounter Plan of Treatment Not on filedocumented as of this encounter Visit Diagnoses Not on filedocumented in this encounter Care Teams Sheet Tailer Relationship Specialty Start Date End Date Yaritza Rodriguez APRN PCP - General 06/04/10 02/15/17 documented as of this encounter
--- OUTSIDE RECORDS SUMMARY | 2022-03-07 01:40 | XMS_ITS | Encounter Summary ---
:1940 Author Organization [facility] [place] [address] Care Team Providers Name Role Phone Yaritza Rodriguez APRN Primary Care Provider Reason for Visit Reason Comments Medication Refill Encounter Details Date Type Department Care Team Description 07/24/2015 Refill Psychiatry and Behavioral Irasema Gambino MD [facility] [place] [address] [place] [address] [phone] (Wo rk) Social History Tobacco Use Types Packs/Day Years Used Date Never Smoker Sex Assigned at Date Recorded Not on file documented as of this encounter Plan of Treatment Not on filedocumented as of this encounter Visit Diagnoses Not on filedocumented in this encounter Care Teams [employer] Relationship Specialty Start Date End Date Yaritza Rodriguez APRN PCP - General 06/04/10 02/15/17 documented as of this encounter
--- OUTSIDE RECORDS SUMMARY | 2022-03-07 01:40 | XMS_ITS | Encounter Summary ---
:1940 Author Organization [place] [address] Care Team Providers Name Role Phone Yaritza Rodriguez JAILENE Primary Care Provider Reason for Visit Reason Comments Memory Impairment Encounter Details Date Type Department Care Team Description 06/24/2013 Office Visit Psychiatry and Jose Wolfe MD Mild cognitive Behavioral Health at [facility] (Primary [facility] [place] [facility] [place], [place] [id number] [place] [phone] (Work) [phone] Social History Tobacco Use Types Packs/Day Years Used Date Never Smoker Sex Assigned at Date Recorded Not on file documented as of this encounter Last Filed Vital Signs Vital Sign Reading Time Taken Comments Blood Pressure 113/70 06/24/2013 10:03 AM EST Pulse 59 06/24/2013 10:03 AM EST Temperature - - Respiratory Rate - - Oxygen Saturation - - Inhaled Oxygen Concentration - - Weight - - Height - - Body Mass Index - - documented in this encounter Progress Notes Garfield Grossman MD - 06/29/2013 4:57 PM EST GERIATRIC PSYCHIATRY ATTENDING: I saw and evaluated the patient with the resident after his or her interview, and our subsequent discussion of the case. I reviewed the patient???s history during the visit and I agree with the details as written by the resident. My exam confirms the resident???s findings. The assessment and plan were formulated in discussion with me and I agree with them as documented. Jose Matamoros MD - 06/24/2013 9:57 AM EST ESTABLISHED GEROPSYCHIATRY OFFICE VISIT NOTE Time Spent: 60 minutes Attendee(s): patient and This patient was seen with Dr. Garfield Grossman. See his note for confirmatory and/or revisionary documentation. HISTORY Chief Complaint: Hoda Peoples is a 73 y.o. Female presents today with memory complaints. HPI: () Ms. Hoda Peoples is a 73 yo female who was evaluated in Memory Clinic on 01/28/2013 at which time shewas diagnosed with Mild Cognitive Impairment. At the time it was decided to not start an anti-dementia medication, but she was informed that given her diagnosis and family history she was at an increased risk of developing dementia, and thus it was recommended that she follow up in 6 months. Today shereports that her memory has been fairly stable since she was last seen. She notes some difficulty remembering certain events and occasional trouble recalling names. Most significantly she notes forgetting to do some things she plans the day before. As a result she pays bill immediately upon receiving them, but notes that she handles the family finances and denies any that were overlooked. She also notes being told that she repeats herself at times. Ms. Peoples reports a couple instances where she was driving and became lost, but notes that she was quickly able to reorient herself. Since the last appointment she reports no significant change in her memory. Her was present for part of the appointment, who reported that he believed her memory had been stable and was in fact quite good. They both report that her mood has been good, and deny any signs of social withdrawal or apathy. Compared to last visit in this clinic: No significant change in memory or other symptoms. Functional Abilities (bathing, toileting; grooming, dressings; eating habits, manners; using mechanical or electronic devices; driving; doing household tasks): No described deficits. Social Skills: (conversation; involvement with family, friends; cooperation; awareness in social settings; interest in hobbies/leisure activities): Some difficulty remembering steps at times while square dancing. Otherwise denies significant deficits. Cognition (remembering names and events; finding words; keeping track of time; awareness of the environment; ability for follow instructions): Some difficulty remembering names and events. Unable to remember planned events at later times, but pays bills immediately when received. 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 Denies symptoms consistent with apathy, AVH, or delusions. Denies thoughts to harm self or others. Other Concerns: (awareness of illness; ability/willingness to discuss symptoms, illness) Denies significant concerns since last appointment. Other Changes Since Last Appointment: Denies significant changes since last appointment. Primary Symptom: Mild memory impairment Quality: Difficulty remembering to do activities Severity: Mild Duration: Persistent x past 6 months Timing: Context: Modifying factors: Making lists improves memory recall Associated S&S: Caregiver Coping and other Considerations (describe): Current Medications: Current Outpatient Prescriptions Medication Sig Dispense Refill ??? Melatonin 1 mg Tab Take 1 [...] down for the next 30 min. ??? aspirin 81 mg EC tablet Take 81 mg by mouth daily. Pertinent Medication Side Effects: Deneis Review of Systems: (07/14/09) Constitutional: Endorses mild fatigue Psychiatric: See HPI above Allergic/Immunological: See reviewed allergies PFSH: () Past Medical/Psychiatric History: Diagnoses: Anxiety Medication Treatment: Wellbutrin SA 150mg BID Outpatient Treatment: No current psychiatrist. Therapy in the past. Last saw a counselor many years ago. 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 Vital Signs: Blood pressure 113/70, pulse 59. Musculoskeletal System ? Muscle Strength/Tone (note atrophy, abnormal movements): No abnormal movements ? Gait and Station: Within normal limits Psychiatric System ? General Appearance/Behavior: appropriately dressed with good eye contact ? Speech: normal tone and volume ? Thought Process: Linear and logical ? Associations: Grossly intact ? Abnormal Thoughts and Perceptions / Thought Content: Homicidality / Violent Thoughts: Denies HI Suicidality: Denies SI Hallucinations: Denies AVH Delusions: Denies Obsessions: Denies ? Judgment and Insight: Good ? Mood & Affect: Euthymic w/ congruent affect ? Orientation: AAO x 4 ? Attention/Concentration: Appropriate ? Memory: Remote and recent memory intact ? Language: Fluent Tongan ? Fund of Knowledge: Grossly intact ? Cognitive Examination: MOCA: MEDICAL DECISION MAKING ASSESSMENT: Hoda Peoples is a 73 y.o. Female with memory difficulties which were diagnosed as mildcognitive impairment when she was last seen in clinic this past January. Since that time her symptoms appear fairly stable, and in fact her MoCA score is slightly higher today than 6 months ago. Again discussed with the patient the options at this point, including starting an anti-dementia medication. However, despite being told or her increased risk for developing dementia, at this point she believes her memory to be fairly stable and does not wish to start an additional medication. Again recommended minimizing medications that can interfere with memory. Will plan to see back in 6 months to re-evaluate her memory. PLAN: - Will not start an anti-dementia medication at this time - Recommend minimizing use of medications that can interfere with memory: specifically cyproheptadine, meclazine, and lorazepam - f/u in 6 months for re-evaluation of memory - Advised patient to contact clinic sooner if she begins to notice progressive decline in memory Patient Instruction/Education provided: Patient/caregiver provided verbal instructions regarding follow up and plan. Patient/caregiver understands the plan? Yes Follow Up: RTC in 6 months for evaluation of memory documented in this encounter Plan of Treatment Not on filedocumented as of this encounter Visit Diagnoses Diagnosis Mild cognitive impairment - Primary Mild cognitive impairment, so stated documented in this encounter Care Teams Analog Ic Design Architect Relationship Specialty Start Date End Date Yaritza Rodriguez APRN PCP - General 06/04/10 02/15/17 documented as of this encounter
--- OUTSIDE RECORDS SUMMARY | 2022-03-07 01:40 | XMS_ITS | Encounter Summary ---
:1940 Author Organization [place] [address] Care Team Providers Name Role Phone Yaritza Rodriguez APRN Primary Care Provider Reason for Visit Reason Onset Date Comments Medication Refill 05/15/2014 Encounter Details Date Type Department Care Team Description 05/15/2014 Refill Psychiatry and Behavioral Tito Styles, DO Health at [facility] [place] [address] [place] [address] [phone] (Wo rk) Social History Tobacco Use Types Packs/Day Years Used Date Never Smoker Sex Assigned at Date Recorded Not on file documented as of this encounter Plan of Treatment Not on filedocumented as of this encounter Visit Diagnoses Not on filedocumented in this encounter Care Teams Well Head Pumper Relationship Specialty Start Date End Date Yaritza Rodriguez APRN PCP - General 06/04/10 02/15/17 documented as of this encounter
--- OUTSIDE RECORDS SUMMARY | 2022-03-07 01:40 | XMS_ITS | Encounter Summary ---
:1940 Author Organization [facility] [place] [address] Care Team Providers Name Role Phone Yaritza Rodriguez JAILENE Primary Care Provider Reason for Visit Reason Comments Memory Loss Encounter Details Date Type Department Care Team Description 05/18/2015 Office Visit Psychiatry and Irasema Gambino, Mild co gnitive impairment; Behavioral Health at Anxiety disorder, unspecified anxiety di sorder type; [facility] Mood disorder [facility] [address] PSYCHIATRY [place] [id number] [phone] Social History Tobacco Use Types Packs/Day Years Used Date Never Smoker Sex Assigned at Date Recorded Not on file documented as of this encounter Last Filed Vital Signs Vital Sign Reading Time Taken Comments Blood Pressure 136/78 05/18/2015 1:25 PM EST Pulse 71 05/18/2015 1:25 PM EST Temperature - - Respiratory Rate - - Oxygen Saturation - - Inhaled Oxygen Concentration - - Weight 65.1 kg (143 lb 8 oz) 05/18/2015 1:25 PM EST Height - - Body Mass Index 22.14 10/09/2014 11:06 AM EDT documented in this encounter Progress Notes Denia Montague MD - 05/29/2015 6:07 AM EST I have seen the patient and reviewed the resident's above history and I agree with the details as written. The assessment and plan were formulated in discussion with me and I agree with them as documented. Referring to FUSE CUP EXPANDER for diagnostic clarification on her cognition (fluctuation MoCA scores over the years, which argues against a major neurocognitive disorder) to help answer the question if she really needs to be on ChEI and endure the cost. Irasema Gambino MD - 05/18/2015 12:53 PM EST [facility] FOLLOW UP NOTE Time Spent: 45 minutes Attendee(s): Patient and her This patient was seen with teaching faculty, .; see attending's note for confirmatory and/or revisionary documentation. HISTORY Chief Complaint/Reason for visit: memory loss INTERVAL HISTORY SINCE LAST VISIT: Hoda Peoples is a 74 y.o. woman w/hx of mild cognitive impairment and anxiety who presents to the clinic for follow up and medication check. Since last seenaldair had increased Exelon patch to a daily frequency as opposed to previous dose of every other day w/PO Exelon. Following the increase she experienced dizziness/weakness which was reportedly due to lowblood pressure. Exelon patch was discontinued 1 week ago by PCP. The patient reports that her memory was better while on the patch, and she would like to resume it every other day. She reports that at present she thinks she is doing ok cognitively. She notes poor recent memory, often forgetfulness about every day things. Gives example of cooking beans without adding water; this has happened only once or twice. 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 Her anxiety levels are well controlled, mood is good, sleep is regular. No changes in her appetite or energy level. No SI/HI, no AH/VH. Changes as compared to last visit in this clinic: Functional Abilities (bathing, toileting; grooming, dressings; eating habits, manners; using mechanical or electronic devices; driving; doing household tasks): no change Social Skills: (conversation; involvement with family, friends; cooperation; awareness in social settings; interest in hobbies/leisure activities): no change Cognition (remembering names and events; finding words; keeping track of time; awareness of the environment; ability for follow instructions):no change Mood and Behavioral Symptoms (depression, sadness; irritability; loss of interest in activities; social withdrawal; apathy; sleep difficulties; appetite chages; paranoia; hallucinations; delusions; agitation/aggression; suicidal feelings; wandering; problems with judgment; inappropriate behavior; awareness of behavioral symptoms; cooperativeness with care/treatment):no change Other Concerns of Changes: (awareness of illness; ability/willingness to discuss symptoms, illness):no change Current Medications: Current Outpatient Prescriptions Medication Sig Dispense Refill ??? rivastigmine (EXELON) 4.6 mg/[address] 1 patch onto the skin daily. 30 patch 3 ??? rivastigmine tartrate (EXELON) 1.5 mg Capsule [...] for this visit. Pertinent Medication Side Effects: Exelon daily: hypotension. Aricept: vomiting x2 weeks Review of Systems: Constitutional: fatigue Eyes: denies ENT: denies Cardiovascular: denies Respiratory: denies GI: : Musculoskeletal: Denies pain/stiffness/spasm Integumentary: denies Neurological: denies Psychiatric: See HPI above Endocrine: denies Hematologic/Lymphatic: Allergic/Immunological: See reviewed allergies PFSH: Per EMR: Past Medical/Psychiatric History: Anxiety Medication Treatment: Wellbutrin SA 150mg BID Outpatient Treatment: No current psychiatrist. Therapy in the past. Last saw a counselor many years ago. 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 Muscle Strength/Tone: age realted atrophy, no abnormal movements ? Gait and Station: appropriate station Psychiatric System/MSE ? General Appearance/Behavior: appropriately dressed, good grooming, direct and appropriate ? Speech: regular rate,volume, and tone ? Thought Process: linear and coherent ? Associations: intact ? Abnormal Thoughts and Perceptions / Thought Content: Homicidality / Violent Thoughts: denies Suicidality: denide Hallucinations denied Delusions: denied Obsessions: denied ? Judgment and Insight: good/fair ? Mood & Affect: euthymic/affect congruent with mood ? Attention/Concentration: good ? Language: fluent Indonesian ? Fund of Knowledge: good ? Cognitive Examination: MoCA: Trails 1 / 1 Cube 0 / 1 Clock 3 / 3 Animal Naming 3 / 3 List of digits 2 / 2 List of Letters (A) 1/ 1 Serial 7s 1 / 3 Repeat Sentences 1 / 2 Fluency 1 / 1 Similarities 2 / 2 Delayed Recall 3 / 5 Orientation 6 / 6 Total Score: 24 30 MEDICAL DECISION MAKING ASSESSMENT: Hoda Peoples is a 74 y.o. woman w/MC and hx of anxietyI who presentshere for follow up. With Exelon she had some subjective improvement in her recent memory, and her MOCA score increased by 3 points. Unable to tolerate a higher dose of Exelon, but also does not want toswitch it out to another agent. Will resume the patch at her previous dose of 4.6mg/24 hr, with a patch application of every other day. She remains stable in terms of her anxiety and mood, and is high functioning at home. PLAN: 1. Resume Exelon patch every other day 2. Neuropsychological testing for insight into diagnosis 3. Continue Wellbutrin for anxiety. 4. Avoid benzodiazepines, alcohol or other agents that could further impact cognition. Patient Instruction/Education provided: Patient/caregiver provided written and verbal instructions regarding follow up. Patient/caregiver understands the plan? Yes Follow Up: 4 weeks documented in this encounter Plan of Treatment Not on filedocumented as of this encounter Visit Diagnoses Diagnosis Mild cognitive impairment Mild cognitive impairment, so stated Anxiety disorder, unspecified anxiety di sorder type Mood disorder Unspecified episodic mood disorder documented in this encounter Care Teams Ultrasound Applications Specialist Relationship Specialty Start Date End Date Yaritza Rodriguez APRN PCP - General 06/04/10 02/15/17 documented as of this encounter
--- OUTSIDE RECORDS SUMMARY | 2022-03-07 01:40 | XMS_ITS | Encounter Summary ---
:1940 Author Organization [facility] [place] [address] Care Team Providers Name Role Phone Yaritza Rodriguez JAILENE Primary Care Provider Reason for Visit Reason Comments Cognitive Problems Encounter Details Date Type Department Care Team Description 01/04/2016 Office Visit Psychiatry and Irasema Gamibno, Mild co gnitive impairment; Behavioral Health at Anxiety disorder, unspecified type; [facility] Mood disorder [facility] [address] [facility] PS[facility]CHIATRY [place] [phone] Social History Tobacco Use Types Packs/Day Years Used Date Never Smoker Alcohol Use Standard Drinks/Week Comments No 0 (1 standard drink = 0.6 oz pure alcoho l) Sex Assigned at Date Recorded Not on file documented as of this encounter Last Filed Vital Signs Vital Sign Reading Time Taken Comments Blood Pressure 116/65 01/04/2016 2:01 PM EDT Pulse 74 01/04/2016 2:01 PM EDT Temperature - - Respiratory Rate - - Oxygen Saturation - - Inhaled Oxygen Concentration - - Weight 68 kg (150 lb) 01/04/2016 2:01 PM EDT Height - - Body Mass Index 23.49 09/17/2015 4:16 PM EST documented in this encounter Progress Notes Denia Montague MD - 01/10/2016 10:44 PM EDT I have seen the patient and reviewed the resident's above history and I agree with the details as written. The assessment and plan were formulated in discussion with me and I agree with them as documented. Mood and anxiety improved with tapering off and replacing with remeron. Irasema Gambino MD - 01/10/2016 6:44 PM EDT [facility] ?? FOLLOW UP NOTE ? Time Spent:?? 45 minutes ?? Attendee(s): Patient and her ?? This patient was seen with teaching faculty, ; see attending's note for confirmatory and/or revisionary documentation. ?? HISTORY ?? Chief Complaint/Reason for visit: cognitive impairment ?? INTERVAL HISTORY SINCE LAST VISIT:?? Hoda Peoples is a 75 y.o. woman w/hx of mild cognitive impairment and anxiety and depression who presents to the clinic for follow up and medication check. She says that she is feeling very good. She notes marked improvement in her sleep and anxiety sinceBupropion was discontinued and Mirtazapine was started. She has been taking less Lorazepam during the past months, says maybe once in the past few weeks. She feels well from a mood standpoint, denies feeling depressed. She says that she has always been a worrier but denies feeling overwhelmed by anxiety as she has in the past. Appetite is good, energy levels are good. No SI/HI, no AH/VH/PI. Cognition is unchanged as compared to when she was last seen. She writes down things so that she doesn't forget, and she at times gets easily distracted. She denies any driving safety concerns, tickets/citations, accidents or near- accidents. The patient's daughter accompanies her to the latter part ofthe interview. She says she thinks that her mother is doing well and agrees with the changes to her medications. ?? Changes as compared to last visit in this clinic: ?? Functional Abilities (bathing, toileting; grooming, dressings; eating habits, manners; using mechanical or electronic devices; driving; doing household tasks): no change ?? Social Skills: (conversation;?? involvement with family, friends; cooperation; awareness in social settings; interest in hobbies/leisure activities): no change ?? Cognition (remembering names and events; finding words; keeping track of time; awareness of the environment; ability for follow instructions):no change ?? Mood and Behavioral Symptoms (depression, sadness; irritability; loss of interest in activities; social withdrawal; apathy; sleep difficulties; appetite chages; paranoia; hallucinations; delusions; agitation/aggression; suicidal feelings; wandering; problems with judgment; inappropriate behavior; awareness of behavioral symptoms; cooperativeness with care/treatment):no change ?? Other Concerns of Changes: (awareness of illness; ability/willingness to discuss symptoms, illness):no change Current Medications: Current Outpatient Prescriptions Medication Sig Dispense Refill ??? rivastigmine (EXELON) 4.6 mg/24 hr Patch 24 hr 1 patch on skin every other day 90 patch 1 ??? mirtazapine (REMERON) 15 mg Tablet Take 1 tablet by mouth nightly for 90 days. 90 tablet 0 ??? melatonin 5 mg Tablet Take 10 mg by mouth. ??? meclizine (ANTIVERT) 25 mg tablet Take 25 mg by mouth 2 times daily as needed. ??? cyproheptadine (PERIACTIN) 4 mg tablet Take 8 mg by mouth daily as needed. ??? LORazepam (ATIVAN) 1 mg tablet Take 0.5 mg by mouth nightly as needed. ??? alendronate (FOSAMAX) 70 mg tablet Take 70 mg by mouth every 7 days. Take in the morning with a full glass of water, on an empty stomach, and do not take anything else by mouth or lie down for the next 30 min. No current facility-administered medications for this visit. Pertinent Medication Side Effects: Denies ?? Review of Systems:? Constitutional: fatigue Eyes:?? denies ENT:?? denies Cardiovascular:?? denies Respiratory:?? denies GI:?denies :?denies Musculoskeletal:?? Denies pain/stiffness/spasm Integumentary: denies Neurological: denies Psychiatric:?? See HPI above Endocrine:?? denies Hematologic/Lymphatic:? Allergic/Immunological: See reviewed allergies? PFSH: Psychiatric History: Lifelong hx of anxiety ?? Medication Treatment: Wellbutrin SA 150mg BID ?? Outpatient Treatment: No current psychiatrist. Therapy in the past. Last saw a counselor many years ago. ?? Psychiatric Hospitalizations: 1990 - psychiatric admission for med management for overwhelming anxiety ?? Family Psychiatric and Medical History: Mother w/ Alzheimer's - onset in mid to late 70s ?? Social History: ?? Place of : [place] ?? Marital status: for 50 yrs ?? Children: 2 adult children ?? 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 Education: Completed HS EXAM Constitutional System ? Vital Signs: Blood pressure 116/65, pulse 74, weight 68 kg (150 lb). Musculoskeletal System ?? Muscle Strength/Tone: age realted atrophy, no abnormal movements? Gait and Station: appropriate station ?? Psychiatric System/MSE ?? General Appearance/Behavior: appropriately dressed, good grooming, direct and appropriate ?? Speech: regular rate,volume, and tone ?? Thought Process: linear and coherent? Associations: intact ?? Abnormal Thoughts and Perceptions / Thought Content: ?Homicidality / Violent Thoughts: denies ?Suicidality: denide ?Hallucinations denied ?Delusions: denied ?Obsessions: denied? Judgment and Insight: good/fair ?? Mood & Affect: euthymic/affect congruent with mood ?? Attention/Concentration: good ?? Language: fluent [place] ?? Fund of Knowledge: good ?? Cognitive Examination: ? MEDICAL DECISION MAKING ?? ASSESSMENT:?? Hoda Peoples is a 75 y.o. woman w/MCI and hx of anxiety who presents here for follow up. Remains stable cognitively, no change since last seen. Mood is good, depression still in remission. Anxiety levels and sleep are significantly improved since last seen, now on Mirtazapine 15 mg QHS which seems to be helpful for her insomnia. Bupropion was likely too activating and possibly contributing to anxiety. Now decreased Lorazepam use, which may also help with cognition in the future. Given that she is stable we will space out her appointment to 3-6 months unless a need arises to be seen earlier. ?? PLAN: 1. Conitinue Mirtazapine 15 mg PO QHS 2. Continue w/Rivastigmine patch every other day, Melatonin 5 mg PO QHS PRN insomnia. 3. Avoidance of ETOH, benzodiazepines. 4. Transfer to for follow up. ?? Patient Instruction/Education provided:?? Patient/caregiver provided written and verbal instructionsregarding follow up. ?? Patient/caregiver understands the plan??? Yes Follow Up: 6 months documented in this encounter Plan of Treatment Not on filedocumented as of this encounter Visit Diagnoses Diagnosis Mild cognitive impairment Mild cognitive impairment, so stated Anxiety disorder, unspecified type Mood disorder Unspecified episodic mood disorder documented in this encounter Care Teams System Support Developer Relationship Specialty Start Date End Date Yaritza Rodriguez APRN PCP - General 06/04/10 02/15/17 documented as of this encounter
--- OUTSIDE RECORDS SUMMARY | 2022-03-07 01:40 | XMS_ITS | Encounter Summary ---
:1940 Author Organization [facility] [place] [address] Care Team Providers Name Role Phone Yaritza Rodriguez APRN Primary Care Provider Reason for Visit Reason Onset Date Comments Medication Refill 02/22/2015 Encounter Details Date Type Department Care Team Description 02/22/2015 Refill Psychiatry and Behavioral Tito Styles, DO Health at [facility] [place] [address] [place] [address] [phone] (Wo rk) Social History Tobacco Use Types Packs/Day Years Used Date Never Smoker Sex Assigned at Date Recorded Not on file documented as of this encounter Plan of Treatment Not on filedocumented as of this encounter Visit Diagnoses Not on filedocumented in this encounter Care Teams Clinical Support Manager Relationship Specialty Start Date End Date Yaritza Rodriguez APRN PCP - General 06/04/10 02/15/17 documented as of this encounter
--- OUTSIDE RECORDS SUMMARY | 2022-03-07 01:40 | XMS_ITS | Encounter Summary ---
:1940 Author Organization [facility] [place] [address] Care Team Providers Name Role Phone Yaritza Rodriguez JAILENE Primary Care Provider Reason for Visit Reason Comments Other Encounter Details Date Type Department Care Team Description 07/27/2014 Telephone Psychiatry and Behavioral Tito Styles DO Health at [facility] [address]oss [place] [address] [place] [address] [phone] (Wo rk) Social History Tobacco Use Types Packs/Day Years Used Date Never Smoker Sex Assigned at Date Recorded Not on file documented as of this encounter Miscellaneous Notes Telephone Encounter - Tito Styles DO - 07/27/2014 9:26 AM EST Started rash (hives in all over the body; no respiratory distress) in Jun, which was 2 weeks after starting Exelon PO (from patch). The last time she took Exelon was in Jun. Claims that she tried to contact me nu. Saw PCP and occupational health nurse who attributed the rash to Exelon (they were aware of that pt had been on Exelon patch since Aug 2013). The reason for the switch from the patch to PO was because she would have to pay for $220. Pt would like to go back to Exelon if possible. But because of cost of the patch and fear of hives from the oral form, pt would like to try an alternative. Galantamine was discussed and pt is agreeable. Telephone Encounter - Tito Styles DO - 07/27/2014 9:26 AM EST ----- Message from Francesca Ray sent at 07/26/2014 4:45 PM EST ----- Contact: This patient said she has left several messages with no response- very important she talk with you- she has had a reaction to the med and needs to speak with you VIDAL documented in this encounter Plan of Treatment Not on filedocumented as of this encounter Visit Diagnoses Not on filedocumented in this encounter Care Teams Coat Ironer Hand Relationship Specialty Start Date End Date Yaritza Rodriguez APRN PCP - General 06/04/10 02/15/17 documented as of this encounter
--- OUTSIDE RECORDS SUMMARY | 2022-03-07 01:40 | XMS_ITS | Encounter Summary ---
:1940 Author Organization [facility] [place] [address] Care Team Providers Name Role Phone Yaritza Rodriguez APRN Primary Care Provider Reason for Visit Reason Onset Date Comments Medication Refill 10/11/2015 Encounter Details Date Type Department Care Team Description 10/11/2015 Refill Psychiatry and Behavioral Irasema Gambino MD Mood disorder Health at [facility] [address] [place] [address] [place] [address] [phone] (Wo rk) Social History Tobacco Use Types Packs/Day Years Used Date Never Smoker Alcohol Use Standard Drinks/Week Comments No 0 (1 standard drink = 0.6 oz pure alcoho l) Sex Assigned at Date Recorded Not on file documented as of this encounter Plan of Treatment Not on filedocumented as of this encounter Visit Diagnoses Diagnosis Mood disorder Unspecified episodic mood disorder documented in this encounter Care Teams Prism Inspector Relationship Specialty Start Date End Date Yaritza Rodriguez APRN PCP - General 06/04/10 02/15/17 documented as of this encounter
--- OUTSIDE RECORDS SUMMARY | 2022-03-07 01:40 | XMS_ITS | Encounter Summary ---
:1940 Author Organization [facility] [place] [address] Care Team Providers Name Role Phone Yaritza Rodriguez Aicha DENT Primary Care Provider Reason for Visit Reason Comments Cognitive Problems Encounter Details Date Type Department Care Team Description 09/14/2015 Office Visit Psychiatry and Irasema Gambino, Mild co gnitive impairment; Behavioral Health at [facility] Mood disorder [facility] [address] Mike PSYCHIATRY [place] [phone] Social History Tobacco Use Types Packs/Day Years Used Date Never Smoker Alcohol Use Standard Drinks/Week Comments No 0 (1 standard drink = 0.6 oz pure alcoho l) Sex Assigned at Date Recorded Not on file documented as of this encounter Last Filed Vital Signs Vital Sign Reading Time Taken Comments Blood Pressure 131/67 09/17/2015 4:16 PM EST Pulse 72 09/17/2015 4:16 PM EST Temperature - - Respiratory Rate - - Oxygen Saturation - - Inhaled Oxygen Concentration - - Weight 63.5 kg (140 lb) 09/17/2015 4:16 PM EST Height 170.2 cm (5' 7) 09/17/2015 4:16 PM EST Body Mass Index 21.93 09/17/2015 4:16 PM EST documented in this encounter Progress Notes Carter Berry MD - 09/18/2015 1:40 PM EST I saw and evaluated the patient with vice president integrated Dr. Gambino. I reviewed the patient???s history during the visit and I agree with the details as written in her note. My exam confirms Dr. Gambino???s findings. The assessment and plan were formulated in discussion with me and I agree with them as documented. Major issues addressed/discussed: Met with this patient and her . We focused on her sleep andshifting antidepressants to avoid lorazepam and improve her sleep. Irasema Gambino MD - 09/17/2015 4:28 PM EST [facility] FOLLOW UP NOTE ? Time Spent:?? 45 minutes Attendee(s): Patient and her This patient was seen with teaching faculty, ; see attending's note for confirmatory and/orrevisionary documentation. HISTORY Chief Complaint/Reason for visit: memory loss INTERVAL HISTORY SINCE LAST VISIT:?? Hoda Peoples is a 75 y.o. woman w/hx of mild cognitive impairment and anxiety and depression who presents to the clinic for follow up and medication check. She continues to use the Exelon patch without side effects. She notices that her memory is not as good as it was when she was last here, but also not as bad as before she started taking the medication. 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 Sometimes has trouble following directions and needs to ask again. Otherwiseshkreri has no trouble with ADLs or IDLs. She continues to drive without difficulty except for one incident a few months ago where she backed into the garage door at home because she forgot to open it (andforgot to check rearview mirror). Otherwise both she and her deny driving safety concerns. She reports that her mood is good, denies being depressed or irritable. She continues to have problems with anxiety, however. She says she worries about various things. For the most part able to distract herself, but sometimes these thoughts about her various stressors get in the way of sleep. Usuallygoes to bed by 11pm, but on some nights cannot fall asleep hours later and ends up taking a Lorazepam tablet. This happens about twice per week. Her energy and appetite are fine. No SI/HI, no AH/VH/PI. Changes as compared to last visit in this clinic: Functional Abilities (bathing, toileting; grooming, dressings; eating habits, manners; using mechanical or electronic devices; driving; doing household tasks): no change Social Skills: (conversation;?? involvement with family, friends; [...] Outpatient Prescriptions Medication Sig Dispense Refill ??? melatonin 5 mg Tablet Take 10 mg by mouth. ??? mirtazapine (REMERON) 7.5 mg Tablet Take 1 tablet by mouth nightly for 30 days. 30 tablet 0 ??? rivastigmine (EXELON) 4.6 mg/24 hr [address] 1 patch onto the skin daily for 90 days. 90patch 0 ??? buPROPion (WELLBUTRIN SR) 150 mg Tablet Sustained Release Take 1 tablet by mouth 2 times daily. 60 tablet 3 ??? meclizine (ANTIVERT) 25 mg tablet Take [...] Pertinent Medication Side Effects: Denies Review of Systems:?? Constitutional: fatigue Eyes:?? denies ENT:?? denies Cardiovascular:?? denies Respiratory:?? denies GI:?denies :?denies Musculoskeletal:?? Denies pain/stiffness/spasm Integumentary: denies Neurological: denies Psychiatric:?? See HPI above Endocrine:?? denies Hematologic/Lymphatic:? Allergic/Immunological: See reviewed allergies? PFSH: Past Medical History Diagnosis Date ??? Hypertension ??? Vertigo ??? Anxiety disorder ??? Seizure disorder Psychiatric History: Lifelong hx of anxiety ?? Medication Treatment: Wellbutrin SA 150mg BID ?? Outpatient Treatment: No current psychiatrist. Therapy in the past. Last saw a counselor many years ago. ?? Psychiatric Hospitalizations: 1990 - psychiatric admission for med management for overwhelming anxiety Family Psychiatric and Medical History: Mother w/ Alzheimer's - onset in mid to late 70s Social History: ?? Place of : [place] ?? Marital status: for 50 yrs ?? Children: 2 adult children ?? 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 Education: Completed HS EXAM Constitutional System ? Vital Signs: Blood pressure 131/67, pulse 72, height 170.2 cm (5' 7), weight 63.504 kg (140 lb). Musculoskeletal System ?? Muscle Strength/Tone: age realted atrophy, no abnormal movements? Gait and Station: appropriate station Psychiatric System/MSE ?? General Appearance/Behavior: appropriately dressed, [...] mood ?? Attention/Concentration: good ?? Language: fluent [place] ?? Fund of Knowledge: good ?? Cognitive Examination: MEDICAL DECISION MAKING ASSESSMENT:?? Hoda Peoples is a 75 y.o. woman w/MCI and hx of anxietyI who presents here for follow up. Cognitively remains stable, some mild cognitive decline but remains high functioning. She had neuropsychological testing today, therefore we have deferred MOCA testing. Her mood is stable, but her anxiety is poorly treated and her sleep is also impaired, requiring PRN use of Lorazepam. Given that Wellbutrin can exacerbate the symptoms of anxiety and impaired sleep, itis not the most appropriate choice for tx in depression in her case at this time. We agreed to begina gradual crosstaper of Wellbutrin with Mirtazapine. PLAN: 1. Start Mirtazapine 7.5 mg at bedtime. If this helps with anxiety and sedation at HS, would discontinue Lorazepam. 2. If Mirtazapine is tolerated, would initiate crosstaper of Wellbutrin, which could be affecting sleep. 3. Follow up on results of neuropsych testing. Patient Instruction/Education provided:?? Patient/caregiver provided written and verbal instructionsregarding follow up. Patient/caregiver understands the plan??? Yes Follow Up: 3 months documented in this encounter Plan of Treatment Not on filedocumented as of this encounter Visit Diagnoses Diagnosis Mild cognitive impairment Mild cognitive impairment, so stated Mood disorder Unspecified episodic mood disorder documented in this encounter Care Teams Stenciler Relationship Specialty Start Date End Date Yaritza Rodriguez APRN PCP - General 06/04/10 02/15/17 documented as of this encounter
--- OUTSIDE RECORDS SUMMARY | 2022-03-07 01:40 | XMS_ITS | Encounter Summary ---
:1940 Author Organization [facility] [place] [address] Care Team Providers Name Role Phone Yaritza Rodriguez APRN Primary Care Provider Encounter Details Date Type Department Care Team Description 08/03/2015 Telephone Psychiatry and Behavioral Irasema Gambino MD Health at [facility] [place] [address] [place] [address] [phone] (Wo rk) Social History Tobacco Use Types Packs/Day Years Used Date Never Smoker Sex Assigned at Date Recorded Not on file documented as of this encounter Miscellaneous Notes Telephone Encounter - Irasema Gambino MD - 08/05/2015 10:29 PM EST Returned patient's call, discussed prior our appeal of her insurance company's denial of our PA request. documented in this encounter Plan of Treatment Not on filedocumented as of this encounter Visit Diagnoses Not on filedocumented in this encounter Care Teams Integration Aide Relationship Specialty Start Date End Date Yaritza Rodriguez APRN PCP - General 06/04/10 02/15/17 documented as of this encounter
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
--- OUTSIDE RECORDS SUMMARY | 2022-03-07 01:40 | XMS_ITS | Encounter Summary ---
:1940 Author Organization [facility] [place] [address] Care Team Providers Name Role Phone Yaritza Rodriguez JAILENE Primary Care Provider Reason for Visit Reason Comments Other Encounter Details Date Type Department Care Team Description 09/08/2013 Telephone Psychiatry and Behavioral Jose Wolfe MD [facility] at [facility] [place] [place] [address] [place] [id number] [phone] (Wo rk) Social History Tobacco Use Types Packs/Day Years Used Date Never Smoker Sex Assigned at Date Recorded Not on file documented as of this encounter Miscellaneous Notes Telephone Encounter - Jose Wolfe MD - 09/08/2013 12:16 PM EST Patient reports significant SEs w/ donepezil including N/V and abdominal pain. Discussed alternatives, and patient hesitant to try alternative oral formulations given potential SEs. She contacted insurance to check on costs, and called back stating she desires to try Exellon patch. Will prescribe for 30 days and patient to call back to discuss how tolerated. Telephone Encounter - Jose Wolfe MD - 09/08/2013 9:15 AM EST Message copied by JOSE WOLFE on ThuSep 08, 2013 9:15 AM ------ Message from: VALERIE MCKENZIE Created: kerri Sep 06, 2013 12:17 PM Regarding: Please call Pt called and stated the Aricept is not agreeing with her She took it for six days She would like you to call her [phone] documented in this encounter Plan of Treatment Not on filedocumented as of this encounter Visit Diagnoses Not on filedocumented in this encounter Care Teams Plug Assembler Relationship Specialty Start Date End Date Yaritza Rodriguez APRN PCP - General 06/04/10 02/15/17 documented as of this encounter
--- OUTSIDE RECORDS SUMMARY | 2022-03-07 01:40 | XMS_ITS | Encounter Summary ---
:1940 Author Organization [facility] [place] [address] Care Team Providers Name Role Phone Shawna Couch MD Primary Care Provider Reason for Visit Reason Onset Date Comments Medication Refill 11/08/2015 Encounter Details Date Type Department Care Team Description 11/08/2015 Refill Psychiatry and Behavioral Irasema Gambino MD Mood disorder [facility] at [facility] [place] [address] [place] [phone] (Wo rk) Social History Tobacco Use Types [...] disorder documented in this encounter Care Teams Order Checker Packer Processer Relationship Specialty Start Date End Date Shawna Couch MD PCP - General Family Medicine 02/16/17 [address] [place], [place] [id number] documented as of this encounter
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
--- OUTSIDE RECORDS SUMMARY | 2022-03-07 01:40 | XMS_ITS | Encounter Summary ---
:1940 Author Organization [facility] [place] [address] Care Team Providers Name Role Phone Yaritza Rodriguez JAILENE Primary Care Provider Reason for Visit Reason Comments Cognitive Decline [facility] Assessment Encounter Details Date Type Department Care Team Description 09/14/2015 Office Visit Psychiatry and Awilda Rosas, Memory deficits Behavioral Health at PhD [facility] NEUROPSYCHOLOGY DEPT. [facility] [place] [address] [address] [place] [address] [phone] (Wo rk) Social History Tobacco Use Types Packs/Day Years Used Date Never Smoker Sex Assigned at Date Recorded Not on file documented as of this encounter Progress Notes Awilda Rosas, PhD - 09/20/2015 2:24 PM EST [facility] NEUROPSYCHOLOGICAL SCREEN Patient Name: Hoda Peoples MR#: [id number] Date of Evaluation: 09/14/2015 Age: 75 Date of : 1940 Referred By: MD Denia Oliver M.D. Presenting Complaint: Ms. Peoples reported that she has had cognitive difficulties for approximately two years. She stated that she has primarily experienced decreased short term memory and poor concentration. She also stated that she has some trouble with word finding. She recently was prescribed Exelon, and noted that with use of this patch her memory functioning improved, but not to baseline levels. Functionally, Ms. Peoples denied any changes in her ability to complete activities of daily living, such as bathing or feeding herself. She reported she has begun to lose track of directions while driving, and described a remote instance wherein she forgot to open the garage door before reversing her vehicle, but she otherwise denied difficulty with driving. She denied trouble with other higher level ADL???s. Medical History: Per Ms. Peoples???s report, she has a history of epilepsy although she has not had seizures in approximately forty years. She noted that her seizures began in childhood, and she had approximately 2-3 seizures yearly. She was otherwise unable to provide information regarding her seizure history. Psychiatric History: Ms. Peoples is followed by psychiatry for management of anxiety. She reported thaton occasion, her worry thoughts impact her ability to fall asleep, but that generally she sleeps eight hours nightly. She denied current substance use and denied a history of any substance use disorder. Social/Occupational History: Ms. Peoples graduated from high school and described herself as an averagestudent, although she also reported that she repeated two grades. She was unable to state the reasonfor grade retention. 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 She denied any trouble managingher business operations. Medications: At the time of this evaluation, she was prescribed melatonin (5mg), mirtazapine (7.5mg), Exelon patch (4.6mg), Wellbutrin (150mg), Antivert (25mg), Periactin (4mg), lorazepam (1mg), and Fosamax (70mg). Behavioral Observations: Ms. Peoples was casually dressed, well-groomed, and appeared her stated age. Her gross motor functions were within normal limits on informal observation. Spontaneous speech was fluent. Receptive language appeared intact on informal observation. Hearing and vision appeared adequate for testing. Self-reported mood was ???good,?? and affect was largely euthymic. Thought processes were largely coherent and logical. Impression & Disposition: Her performance on today? s evaluation indicated difficulty with learning of contextual verbal material, as well as trouble discriminating unlearned from previously learned information across memory tasks; memory was otherwise intact. Relative weakness was seen in speeded color naming. Her performance on measures of simple attention, working memory, processing speed, cognitive flexibility, response inhibition, expressive language, and visuospatial reasoning was intact.Overall, difficulties evidenced on neuropsychological evaluation were relatively isolated, and not indicative of a particular etiology. Of note, her memory profile does not evidence the classic rapid forgetting pattern associated with Alzheimer???s disease. It is possible that her anxiety is contributing to her cognitive deficits, and contributions secondary to her history of epilepsy and prior learning difficulties should also be considered as potential contributing factors. It will be important tomonitor her functioning via serial assessment to document the exact nature and course of her deficits. Given the above conclusions, the following steps are recommended: ??? When learning new information, Ms. Peoples will benefit if information is broken up into small, manageable pieces. She may find it helpful to articulate the material in her own words and in a context to promote encoding at the onset of a new task. This material may need to be repeated multiple times to promote encoding. ?? Due to Ms. Peoples???s concerns with navigation when driving, it will be important to monitor her driving ability to ensure safety and prevent getting lost. A specialized occupational therapy driving evaluation may be considered. ??? As Ms. Peoples is experiencing anxiety despite her adherence to a psychotropic regimen, it is recommended that she participate in psychotherapy to address these symptoms. Maintenance of her psychological health will help maximize her cognitive abilities in day to day life. ??? It is recommended that she return for reevaluation in 12-18 months in order to monitor her levelof cognitive functioning. Thank you for the opportunity to participate in this patient???s care. Sendy Smith Psy.D. Awilda Rosas, Ph.D., [facility] Post-Doctoral Fellow Board Certified in Clinical Neuropsychology Neuropsychology Door Operator, Neuropsychology Program tray delivery aide This report was prepared by Sendy Smith Psy.D., Postdoctoral Fellow in Neuropsychology, under the supervision of Awilda Rosas, Ph.D., [facility]. TEST RESULTS NEUROPSYCHOLOGICAL TEST SCORE Descriptor RANGE Attention/Executive Functioning: WAIS-IV: Scaled Score Digit Span Forward 13 (max span = 7) High Average Digit Span Backward 6 (max span = 3) Low Average Digit Span Sequence 10 (max span = 5) Average [place] Making Test: Raw Score (T Score) Part A 45?? , 0 errors (41) Low average Part B 148?? , 1 SL error (41) Low average Stroop Color-Word Interferences Test: Raw Score (T Score) Color Naming 75 (35) Borderline Word Reading 60 (42) Low Average Color-Word 39 (58) High Average Interference 6 (56) Average Memory: José Miguel Memory Scale-IV: Raw Score (Scaled Score) Logical Memory I 5/53 (1) Moderately to Severely Impaired Logical Memory II 539 (4) Borderline Logical Memory Recognition Borderline [place] Rael Verbal Learning Test: Raw Score (T-Score) Total Recall /36 - 4-7-6 (38) Low Average Delayed Recall /12 (38) Low Average Recognition Discrimination Index 5 (21) Moderately Impaired Brief Visuospatial Memory Test-Revised: Raw Score (T-Score/%) Immediate Recall 1536 - 4-5-6 (41) Low Average Delayed Recall 6/12 (43) Low Average Delayed Recognition 3/6 (3-9%) Borderline Language: Raw Score (T score) Letter Fluency 41 (50) Average Category Fluency 17 (49) Average [place] Naming Test 47/60 (44) Average BDAE Sentence Comprehension: 11/12 Average Visuospatial Functioning: Raw Score (%) BVMT-R Copy 06/23 Within Normal Limits Clock drawing to command 03/22 Within Normal Limits documented in this encounter Plan of Treatment Not on filedocumented as of this encounter Visit Diagnoses Diagnosis Memory deficits Memory loss documented in this encounter Care Teams Lpn Relationship Specialty Start Date End Date Yaritza Rodriguez APRN PCP - General 06/04/10 02/15/17 documented as of this encounter
--- OUTSIDE RECORDS SUMMARY | 2022-03-07 01:40 | XMS_ITS | Encounter Summary ---
:1940 Author Organization [place] [address] Care Team Providers Name Role Phone Yaritza Rodriguez APRN Primary Care Provider Reason for Visit Reason Onset Date Comments Medication Refill 08/15/2013 Encounter Details Date Type Department Care Team Description 08/15/2013 Refill Psychiatry and Behavioral Jose Wolfe MD [facility] [place] [address] [place] [address] [phone] (Wo rk) Social History Tobacco Use Types Packs/Day Years Used Date Never Smoker Sex Assigned at Date Recorded Not on file documented as of this encounter Plan of Treatment Not on filedocumented as of this encounter Visit Diagnoses Not on filedocumented in this encounter Care Teams Double End Production Grinder Relationship Specialty Start Date End Date Yaritza Rodriguez APRN PCP - General 06/04/10 02/15/17 documented as of this encounter
--- OUTSIDE RECORDS SUMMARY | 2022-03-07 01:42 | XMS_ITS | Encounter Summary ---
:1940 Author Organization [facility] Address [address] [place] [address] Care Team Providers Name Role Phone Unknown, Provider Primary Care Provider Encounter Details Date Type Department Care Team Description 09/26/2004 Results Only [facility] Darren Guo MD conversion [address] [place] [phone] Social History Tobacco Use Types Packs/Day Years Used Date Never Assessed Sex Assigned at Date Recorded Not on file documented as of this encounter Plan of Treatment Not on filedocumented as of this encounter Procedures Procedure Name Priority Date/Time Associated Diagnosis Comme nts SURGICAL PATHOLOGY Routine 09/26/2004 0:00 EST Re sults for this procedure are i n the results section. documented in this encounter Results SURGICAL PATHOLOGY (09/26/2004 0:00 EST) Pathology Report: SURGICAL PATHOLOGY REPORT DELIA JJ Reports generated via electronic interface contain karthik ginal data; LAB however they are lacking the format of the original re port. Caution should be taken when reading/interpreting unfo rmatted reports. Name: ? BRIANNA BERMAN ? Accession #: ? [id number] ? : ? 1940 (Age: 64) ??F ? Collect Date: ? 09/26/2004 ? Location: ? [facility] ? Receive Date: ? 005 ? Provider: MEERA CURRY MD Copy to: JOBY BAKER INGREDIENT MIXER ? Final Pathologic Diagnosis: ? Colon, 20.0 cm, polyp, biopsy: - Tubular adenoma. Document reviewed and electronically signed by: CHRISTIANNE POWER MD Report ??Date: 09/30/2004 18:49 By the signature above, the attending physician certif ies that he/she has personally conducted a gross and/or microscopic examin ation of the described specimens and rendered or confirmed the above diagnosi s. Specimen(s) Received: ? Polyp 20.0 cm Clinical History: ? Colonoscopy screening Gross Description: ? Received in Hollande' s fixative labelled Wood and polyp 20.0 cm is a 0.2 x 0.1 x 0.1 cm wang-pink, polypoid soft tissue, sub mitted in toto in one cassette. ??([facility])/[facility] End of Report Specimen Performing Organization Address City/State/ZIP Code Phon e Number [facility] [address] [place] [address] SERVICES [facility] [address] [place] [address] documented in this encounter Visit Diagnoses Not on filedocumented in this encounter Care Teams Continuous Linter Drier Operator Relationship Specialty Start Date End Date Unknown, Provider, PCP - General 11/01/08 documented as of this encounter
--- OUTSIDE RECORDS SUMMARY | 2022-03-07 01:42 | XMS_ITS | Encounter Summary ---
:1940 Author Organization [facility] Address [address] [place] [address] Care Team Providers Name Role Phone Unknown, Provider Primary Care Provider Encounter Details Date Type Department Care Team Description 05/08/2020 Lab Requisition [facility] Outr Resulting Lab, Pathology & Laboratory Provider [facility] [address] [place] [address] Social History Tobacco Use Types Packs/Day Years Used Date Never Assessed Sex Assigned at Date Recorded Not on file documented as of this encounter Plan of Treatment Not on filedocumented as of this encounter Procedures Procedure Name Priority Date/Time Associated Comments Diagnosis DO NOT ORDER Today 05/08/2020 11:10 Results for this STANDALONE - BROAD EDT procedure are in COVID TEST the results section. COVID-19 TESTING Routine 05/08/2020 11:10 Results for this EDT procedure are i n the results section. documented in this encounter Results DO NOT ORDER STANDALONE - BROAD COVID TEST (05/08/2020 11:10 EDT) COVID-19 rt-PCR NEGATIVE Negative [facility] Result Comment: LABORATORY 2019-novel Coronavirus (2019 -nCoV) not detected by the qRT-PCR assay. Consider testing for other respiratory viruses or re-collecting for 2019-nCoV testing. Note: Optimum timing for peak viral levels du ring infections caused by 20 -nCoV have not been determined. Collection of multiple specimens from the same patient may be necessary to detect the virus. Limitations Positive results are indicat jose of active infection with SARS-CoV-2 but do not rule out bacterial infection or co-infection with other viruses. The agent detected may not be the definite cause of diseas e. In addition, detection of viral RNA may not indicate the presence of infectious virus or that SARS-CoV-2 is the causative agent for clinical symptoms. Negative results do not prec lude SARS-CoV-2 infection and should not be used as the sole basis for patient management decisions. Negative results must be combined with clinical observations, patient his tory, and epidemiological in formation. False negative results may also occur if amplification inhibitors are present in the specimen or if inadequate numbers of organisms are present in the specimen. Op timum specimen types and carrillo ing for peak viral levels during infections caused by SARS-CoV-2 have not been fully determined. Collection of multiple specimens (types and time points) from the same patient may be necessary to detect the virus. The test was validated for u with upper respiratory specimens obtained via nasopharyngeal or oropharyngeal swabs in VTM, UTM, M4, M5, M6, saline, and MTM media. The performance of this test has not be en established for other spe cimens. Specimens collected using other FDA recommended Specimen Collection Materials listed in the FDA COVID-19 Diagnostic Technologies communication (October 06, 2019) are pr ocessed with the caveat that they were not all validated for use with this test and the result must be interpreted in this context. Furthermore, a false negative results may occur if a specimen is improperly collected, transported or handled. If the virus mutates in the RT-PCR target region, SARS-CoV-2 may not be detected or may be detected less predictably. Inhibitors or other types of interference may produce a false negative result. An interference study evaluating the effect of common cold medications was not performed. This test is not FDA-cleared but its performance characteristics were established by our CLIA-certified, CAP-accredited, high complexity laboratory in accordance with CLIA regulations, College of [employer] an Pathologists (CAP) guidel lea (Sep 29, 2019), and FDA guidance (Sep 10, 2019). This test is only for use un john the Food and Drug Administration's Emergency Use Authorization. Specimen Swab - Entire nasopharynx (body structur e) Performing Organization Address City/State/ZIP Code Phon e Number [facility] [place] COVID-19 TESTING (05/08/2020 11:10 EDT) COVID-19 rt-PCR NEGATIVE Negative [facility] Result Comment: LABORATORY 2019-novel Coronavirus (2019 -nCoV) not detected by the qRT-PCR assay. Consider testing for other respiratory viruses or re-collecting for 2019-nCoV testing. Note: Optimum timing for peak viral levels du ring infections caused by 20 19-nCoV have not been determined. Collection of multiple specimens from the same patient may be necessary to detect the virus. Limitations Positive results are indicat jose of active infection with SARS-CoV-2 but do not rule out bacterial infection or co-infection with other viruses. The agent detected may not be the definite cause of diseas e. In addition, detection of viral RNA may not indicate the presence of infectious virus or that SARS-CoV-2 is the causative agent for clinical symptoms. Negative results do not prec lude SARS-CoV-2 infection and should not be used as the sole basis for patient management decisions. Negative results must be combined with clinical observations, patient his tory, and epidemiological in formation. False negative results may also occur if amplification inhibitors are present in the specimen or if inadequate numbers of organisms are present in the specimen. Op timum specimen types and carrillo ing for peak viral levels during infections caused by SARS-CoV-2 have not been fully determined. Collection of multiple specimens (types and time points) from the same patient may be necessary to detect the virus. The test was validated for u with upper respiratory specimens obtained via nasopharyngeal or oropharyngeal swabs in VTM, UTM, M4, M5, M6, saline, and MTM media. The performance of this test has not be en established for other spe cimens. Specimens collected using other FDA recommended Specimen Collection Materials listed in the FDA COVID-19 Diagnostic Technologies communication (October 06, 2019) are pr ocessed with the caveat that they were not all validated for use with this test and the result must be interpreted in this context. Furthermore, a false negative results may occur if a specimen is improperly collected, transported or handled. If the virus mutates in the RT-PCR target region, SARS-CoV-2 may not be detected or may be detected less predictably. Inhibitors or other types of interference may produce a false negative result. An interference study evaluating the effect of common cold medications was not performed. This test is not FDA-cleared but its performance characteristics were established by our CLIA-certified, CAP-accredited, high complexity laboratory in accordance with CLIA regulations, College of [employer] an Pathologists (CAP) guidel lea (Sep 29, 2019), and FDA guidance (Sep 10, 2019). This test is only for use un john the Food and Drug Administration's Emergency Use Authorization. Performing Lab [facility] LABORATORY SERVICES Specimen Swab Performing Organization Address City/State/ZIP Code Phon e Number [facility] [address] [place] [address] SERVICES [facility] [place], [place] documented in this encounter Visit Diagnoses Not on filedocumented in this encounter Care Teams Manager Internship Relationship Specialty Start Date End Date Unknown, Provider, PCP - General 11/01/08 documented as of this encounter
--- OUTSIDE RECORDS SUMMARY | 2022-03-07 01:42 | XMS_ITS | Encounter Summary ---
:1940 Author Organization [facility] Address [address] [place] [address] Care Team Providers Name Role Phone Unknown, Provider Primary Care Provider Encounter Details Date Type Department Care Team Description 11/29/2020 Lab Requisition [facility] Outr Resulting Lab, Pathology & Laboratory Provider [facility] [address] [place], [place] [id number] Social History Tobacco Use Types Packs/Day Years Used Date Never Assessed Sex Assigned at Date Recorded Not on file documented as of this encounter Plan of Treatment Not on filedocumented as of this encounter Procedures Procedure Name Priority Date/Time Associated Diagnosis Comme nts COVID-19 TEST [facility] Today 11/29/2020 12:10 LAB PCR EDT COVID-19 TESTING Routine 11/29/2020 12:10 Results for this EDT procedure are i n the results section. documented in this encounter Results COVID-19 TEST [facility] PCR (11/29/2020 12:10 EDT) Specimen Swab - Entire nasopharynx (body structur e) Performing Organization Address City/State/ZIP Code Phon e Number [facility] [address] [place] [address] SERVICES COVID-19 TESTING (11/29/2020 12:10 EDT) COVID-19 rt-PCR Negative Negative [facility] Result Comment: CENTER LABORATORY This test has not been FDA c leared or approved. This test has been authorized by FDA under an EUA for use by authorized laboratories. This test has been authorized only for detection of nucleic acid fro SERVICES m 2019-nCoV, not for any oth er viruses or pathogens. This test is only authorized for the duration of the declaration that circumstances exist justifying the authorization of emergency use of in vitro d iagnostic tests for detectio n and/or diagnosis of 2019-nCoV under section 564(b)(1) of Act, 21 U.S.C ?? 360bbb-3(b) (1), unless the authorization is terminated or revoked sooner. Negative results do not prec lude 2019-nCoV infection and should not be used as the sole basis for treatment or other patient management decisions. Negative results must be combined with clinical observa tions, patient history, and epidemiological informatio n. This test was developed and its performance characteristics determined by [facility]. It has not been cleared or approved by the US Food and Drug Administration. FDA does not require this test to go through premarket FDA review. This t est is used for clinical purposes. It should not be regarded as investigational or for research. This laboratory is certified under the Clinical Laboratory Improvement Amendm ents (CLIA) as qualified to perform high complexity clinical laboratory testing. This test is based on the CD C COVID-19 Emergency Use Authorization (EUA) assay, with minor modification as defined by the FDA Performed on the Robotic Wareso 7 Pro RT-PCR System. Performing Lab [facility] SERVICES Specimen Swab Performing Organization Address City/State/ZIP Code Phon e Number [facility] [address] [place] [address] SERVICES documented in this encounter Visit Diagnoses Not on filedocumented in this encounter Care Teams Technical Business Analyst Relationship Specialty Start Date End Date Unknown, Provider, PCP - General 11/01/08 documented as of this encounter
--- OUTSIDE RECORDS SUMMARY | 2022-03-07 01:42 | XMS_ITS | Clinical Summary ---
:1940 Author Organization [facility] Address [address] [place] [address] Care Team Providers Name Role Phone Unknown, Provider Primary Care Provider Social History Tobacco Use Types Packs/Day Years Used Date Never Assessed Sex Assigned at Date Recorded Not on file Plan of Treatment Health Maintenance Due Date Last Done Comments Fall Risk Screening 2006 Insurance Payer Benefit Plan / Subscriber ID Effective Dates Phone Addre ss Type Group MEDICARE MEDICARE A/B [id number] 2006-[id number] [place] [address] Care Teams Coremaker Helper Relationship Specialty Start Date End Date Unknown, Provider, PCP - General 11/01/08
--- OUTSIDE RECORDS SUMMARY | 2022-03-07 01:42 | XMS_ITS | Encounter Summary ---
:1940 Author Organization [facility] Address [address] [place] [address] Care Team Providers Name Role Phone Unknown, Provider Primary Care Provider Encounter Details Date Type Department Care Team Description 05/11/2020 Results Only [facility] - [facility] Unknow n, Provider, Lab - [facility] [address] [place] [address] [place] [address] Social History Tobacco Use Types Packs/Day Years Used Date Never Assessed Sex Assigned at Date Recorded Not on file documented as of this encounter Plan of Treatment Not on filedocumented as of this encounter Procedures Procedure Name Priority Date/Time Associated Diagnosis Comme [facility] SURGICAL PATHOLOGY Routine 05/11/2020 Results f or this procedure are i n the results section . documented in this encounter Results SURGICAL PATHOLOGY (05/11/2020) Specimen Narrative [facility] - 020 12:46 EST Name: BRIANNA BERMAN ? : [birth year] ?Age/Sex: 79/F ?Unit#: [id number] ? Loc: LAB.POP ? Status: REG REF ?? Reg Date: 05/11/20 ? Pt.Phone Number : ? Specimen: [id number] ? STA TUS: SOUT ?Spec Date:05/11/20 ? Physician Copies: ?NONE,NONE ? Tissues: A ?? Endoscopy specimen (DUODEN UM) ? B ?? Endoscopy specimen (GA STRIC) ? C ?? Endoscopy specimen (ES OPHAGEAL DISTAL) ? D ?? Endoscopy specimen (RI OXIMAL ESPOHAGEAL ) ? CPT: 03107 ?? Units: ??4 ?FINAL DIAGNOSIS ? A. ??DUODENUM, BIOPSY; ? - Small intestinal mucosa with no significant diagnostic abnormality. ? B. STOMACH, BIOPSY; ? - Antral mucosa with reactive (ch emical) gastropathy. ? - Negative for Helicobacter pylor i on H E stains. ? C. ESOPHAGEAL, DISTAL, BIOPSY; ? - Squamous mucosa with mild react jose changes. ? D. ESOPHAGEAL, PROXIMAL, BIOPSY; ? - ??Squamous mucosa with mild edwin ctive changes. ?COMMENT ? [id number] ? GROSS DESCRIPTION ? A. Received in formalin labeled w ith proper patient identification (initials ? W,S) and duodenal bx are two ta n irregular tissues, 0.2 x 0.2 x 0.1 cm and ? 0.2 x 0.2 x 0.2 cm, entirely subm itted in A. MB/db ? B. Received in formalin labeled w ith proper patient identification (initials ? W,S) and gastric bx is a wang no dular tissue, 0.2 x 0.2 x 0.2 cm, entirely ? submitted in B. MB/db ? C. Received in formalin labeled w ith proper patient identification (initials ? W,S) and distal esophageal bxs are two pale-miller membranous tissue, 0.2 x 0.1 ? x 0.1 cm and 0.3 x 0.2 x 0.1 cm, entirely submitted in C. KARL/barrie ? D. Received in formalin labeled w ith proper patient identification (initials Patient: BRIANNA BERMAN ? #[id number] ? (Continued) Specimen: [id number] ? Rec eived: 05/15/20 ?(Continued) ? GROSS DESCRIPTION ?(Continued) ? W,S) and proximal esophageal bx are two wang tissues 0.1 cm in greatest ? dimension and 0.2 x 0.1 x 0.1 cm, entirely submitted in D. KARL/barrie ?? PREOP DX/CLINICAL HISTORY ?DYSPHAGIA, CONSIDER ANY O DDSIS Signed ____(signature on file)____ Jann Horn 05/17/20 ? By the signature above, the attending ph ysician certifies that he/she has personally conducted a gross and/or microscopic exa mination of the described specimens and rendered or confirmed the above diagnosi s. Test Performed by [facility], [address] [place] [address] Macerator Operator: Jacey Darden MD PHD Performing Organization Address City/State/[facility] Code Phon e Number [facility] [address] [place] [address] documented in this encounter Visit Diagnoses Not on filedocumented in this encounter Care Teams Manager Council Relationship Specialty Start Date End Date Unknown, Provider, PCP - General 11/01/08 documented as of this encounter
--- OUTSIDE RECORDS SUMMARY | 2022-03-07 01:42 | XMS_ITS | Encounter Summary ---
:[address] [facility] Address [address] [place] [address] Care Team Providers Name Role Phone Unknown, Provider Primary Care Provider Encounter Details Date Type Department Care Team Description 07/01/2019 Lab Requisition [facility] Unknown, Provider, Pathology & Laboratory [facility] [address] [facility] [place] [address] Social History Tobacco Use Types Packs/Day Years Used Date Never Assessed Sex Assigned at Date Recorded Not on file documented as of this encounter Plan of Treatment Not on filedocumented as of this encounter Procedures Procedure Name Priority Date/Time Associated Comments Diagnosis SPEP, INCLUDES Routine 07/01/2019 10:15 Results f or this QUANTITATION OF EST procedure ar e in MONOCLONAL SPIKE the results section. documented in this encounter Results SPEP, INCLUDES QUANTITATION OF MONOCLONAL SPIKE (07/01/2019 10:15 EST) Total Protein 6.7 6.3 - 8.2 g/dL [facility] Albumin % 60.4 55.8 - 66.1 % [facility] Alpha-1 % 4.0 2.9 - 4.9 % [facility] Alpha-2 % 10.6 7.1 - 11.8 % [facility] Beta % 11.3 8.4 - 13.1 % [facility] Gamma % 13.7 11.1 - 18.8 % [facility] SPEP Comment No apparent [facility] monoclonal protein LABORATORY SERVICES seen on serum electrophoresisComm ent: See scanned/supplementa ry report. Specimen Blood - Venous blood (substance) Narrative This result has an attachment that is no t available. Performing Organization Address City/State/[facility] Code Phon e Number [facility] [address] [place] [address] SERVICES documented in this encounter Visit Diagnoses Not on filedocumented in this encounter Care Teams Kettle Loader Relationship Specialty Start Date End Date Unknown, Provider, PCP - General 11/01/08 documented as of this encounter
--- OUTSIDE RECORDS SUMMARY | 2022-03-07 01:42 | XMS_ITS | Encounter Summary ---
:1940 Author Organization [facility] Address [address] [place] [address] Care Team Providers Name Role Phone Unknown, Provider Primary Care Provider Encounter Details Date Type Department Care Team Description 08/16/2020 Lab Requisition [facility] Outr Resulting Lab, Pathology & Laboratory Provider [facility] [address] [place], [place] [id number] Social History Tobacco Use Types Packs/Day Years Used Date Never Assessed Sex Assigned at Date Recorded Not on file documented as of this encounter Plan of Treatment Not on filedocumented as of this encounter Procedures Procedure Name Priority Date/Time Associated Diagnosis Comme nts COVID-19 TEST [facility] Today 08/16/2020 10:27 LAB PCR EST COVID-19 TESTING Routine 08/16/2020 10:27 Results for this EST procedure are i n the results section. documented in this encounter Results COVID-19 TEST [facility] LAB PCR (08/16/2020 10:27 EST) Specimen Swab - Entire nasopharynx (body structur e) Performing Organization Address City/State/ZIP Code Phon e Number [facility] [address] [place] [address] SERVICES COVID-19 TESTING (08/16/2020 10:27 EST) COVID-19 rt-PCR Negative Negative [facility] Result Comment: CENTER LABORATORY This [...] developed and its performance characteristics determined by [facility]. It has not been cleared or approved [...] defined by the FDA Performed on the [employer] 7 Flex RT-PCR System. Performing Lab [facility] Lab [facility] SERVICES Specimen Swab Performing Organization Address City/State/ZIP Code Phon e Number [facility] [address] [place] [address] SERVICES documented in this encounter Visit Diagnoses Not on filedocumented in this encounter Care Teams Law Office Receptionist Relationship Specialty Start Date End Date Unknown, Provider, PCP - General 11/01/08 documented as of this encounter
--- OUTSIDE RECORDS SUMMARY | 2022-03-07 01:42 | XMS_ITS | Encounter Summary ---
:1940 Author Organization [facility] Address [address] [place] [address] Care Team Providers Name Role Phone Unknown, Provider Primary Care Provider Encounter Details Date Type Department Care Team Description 10/08/2021 Lab Requisition [facility] Outr Resulting Lab, Pathology & Laboratory Provider [facility] [address] [place], [place] [id number] Social History Tobacco Use Types Packs/Day Years Used Date Never Assessed Sex Assigned at Date Recorded Not on file documented as of this encounter Plan of Treatment Not on filedocumented as of this encounter Procedures Procedure Name Priority Date/Time Associated Comments Diagnosis ANTI NUCLEAR AB Routine 10/08/2021 12:32 Results for this (WILMAN), IFA EDT procedure are i n the results section. THYROID ANTIBODIES Routine 10/08/2021 12:32 Resul ts for this EDT procedure are i n the results section. documented in this encounter Results THYROID ANTIBODIES (10/08/2021 12:32 EDT) Pathologist Sig nature Anti-Thyroglobulin <15 <=60 U/mL [facility] Thyroperoxidase Ab 32 <=60 U/mL [facility] Specimen Blood - Venous blood (substance) Performing Organization Address City/State/ZIP Code Phon e Number [facility] [address] [place] [address] SERVICES (ABNORMAL) ANTI NUCLEAR AB (WILMAN), IFA (10/08/2021 12:32 EDT) WILMAN Interpretation Positive (A) Negative [facility] WILMAN Titer and Pattern 1:80 Homogeneous [facility] [address] LABORATORY SERVICES Specimen Blood - Venous blood (substance) Narrative [facility] - 10/09/2021 15:29 EDT Results were obtained with the [employer]OVA NOV A Lite HEp-2 WILMAN Kit by indirect immunofluorescence. Performing Organization Address City/State/ZIP Code Phon e Number [facility] [address] [place] [address] SERVICES documented in this encounter Visit Diagnoses Not on filedocumented in this encounter Care Teams Cargo Vessel Stewardess Relationship Specialty Start Date End Date Unknown, Provider, PCP - General 11/01/08 documented as of this encounter
--- OUTSIDE RECORDS SUMMARY | 2022-03-07 01:42 | XMS_ITS | Encounter Summary ---
:1940 Author Organization [facility] Address [address] [place] [address] Care Team Providers Name Role Phone Unknown, Provider Primary Care Provider Encounter Details Date Type Department Care Team Description 09/19/2014 Results Only [facility] Mali Couch MD Laboratory Services - [place] [address] [place] [address] [address] [facility] [place] [address] [phone] Social History Tobacco Use Types Packs/Day Years Used Date Never Assessed Sex Assigned at Date Recorded Not on file documented as of this encounter Plan of Treatment Not on filedocumented as of this encounter Procedures Procedure Name Priority Date/Time Associated Diagnosis Comme nts PAP TEST- RESULT Routine 09/19/2014 0:00 EDT Resu lts for this ONLY procedure are i n the results section. documented in this encounter Results PAP TEST- RESULT ONLY (09/19/2014 0:00 EDT) Pathology Report: CYTOPATHOLOGY REPORT [facility] Reports generated via electronic interface contain karthik ginal data; SERVICES however they are lacking the format of the original re port. Caution should be taken when reading/interpreting unfo rmatted reports. Name: ? BRIANNA BERMAN ? Accession #: ? [id number] ? : ? 1940 (Age: 74) ??F ?Collect Da te: ? 09/19/2014 ? Location: ? [facility] ? Receive Date: ? 015 ? Provider: ROBERT COUCH MD Copy to: ? Final Report SPECIMEN ADEQUACY ? Satisfactory for Evaluation - transformation zone component present GENERAL CATEGORIZATION ? Negative for Intraepithelial Lesion or Malignan cy ?? Hormonal/Contraceptive status: Yes: Estrace vaginal Previous Gynecologic Pathology: Yes: Distant h/o abnor mal pap Specimen/Source: ??Pap Test, Vagina/Cervix, ThinPrep Imaging System with manual evaluation Document reviewed and electronically signed by: ? CHRISTIANNE Fox(ASCP) ? Report ??Date: 09/25/2014 11:44 HPV with Pap Test ? Date Ordered: ? 09/25/2014 ? Status: ?? Signed Out ?Date Complete: ? 09/28/2014 ? By: ??S ystem Interface ? Date Reported: ? 09/28/2014 ? Interpretation RESULT: Negative for HPV. No E6 or E7 mRNA is detected from HPV types 16,18,31,3 3,35, 39,45,51,52,56,58,59,66, and 68 by tire shop manager media juan manuel amplification. Comments Document reviewed and electronically signed by: ? System Interface ? Report date: 09/28/2014 By the signature above, the attending physician certif ies that he/she has personally conducted a gross and/or microscopic examin ation of the described specimens and rendered or confirmed the above diagnosi s. End of Report Specimen Performing Organization Address City/State/ZIP Code Phon e Number [facility] [address] [place] [address] SERVICES documented in this encounter Visit Diagnoses Not on filedocumented in this encounter Care Teams Timber Packer Relationship Specialty Start Date End Date Unknown, Provider, PCP - General 11/01/08 documented as of this encounter
--- OUTSIDE RECORDS SUMMARY | 2022-03-07 01:42 | XMS_ITS | Encounter Summary ---
:1940 Author Organization [facility] Address [address] [place] [address] Care Team Providers Name Role Phone Unknown, Provider Primary Care Provider Encounter Details Date Type Department Care Team Description 11/29/2020 Lab Requisition [facility] Outr Resulting Lab, Pathology & Laboratory Provider [facility] [address] [place] [address] Social History Tobacco Use Types Packs/Day Years Used Date Never Assessed Sex Assigned at Date Recorded Not on file documented as of this encounter Plan of Treatment Not on filedocumented as of this encounter Procedures Procedure Name Priority Date/Time Associated Diagnosis Comme nts CORTISOL Routine 11/29/2020 12:10 EDT Results for this procedure are i n the results section . documented in this encounter Results CORTISOL (11/29/2020 12:10 EDT) Cortisol 6 See Note ug/dL [facility] Comment: LABORATORY SERVICES NOTE: Reference Ranges (from OCD IFU): Collected Before 10:00 AM: ??4 - 23 ug/dL Collected After 5:00 PM: ?2 - 14 ug/dL The results of this assay ca n be falsely elevated due to the consumption of Biotin. Specimen Blood - Venous blood (substance) Performing Organization Address City/State/ZIP Code Phon e Number [facility] [address] [place] [address] SERVICES documented in this encounter Visit Diagnoses Not on filedocumented in this encounter Care Teams Manager Integration Relationship Specialty Start Date End Date Unknown, Provider, PCP - General 11/01/08 documented as of this encounter
--- OUTSIDE RECORDS SUMMARY | 2022-03-07 01:42 | XMS_ITS | Encounter Summary ---
:[address] [facility] Address [address] [place] [address] Care Team Providers Name Role Phone Unknown, Provider Primary Care Provider Encounter Details Date Type Department Care Team Description 08/22/2009 Orders Only [facility] Sree Rios MD Laboratory Services - [address] [place] [address] [address] [place] [address] [place] [address] [phone] Social History Tobacco Use Types Packs/Day Years Used Date Never Assessed Sex Assigned at Date Recorded Not on file documented as of this encounter Plan of Treatment Not on filedocumented as of this encounter Procedures Procedure Name Priority Date/Time Associated Diagnosis Comme [facility] CYTOPATHOLOGY Routine 08/22/2009 0:00 EST Results for this procedure are i n the results section . documented in this encounter Results CYTOPATHOLOGY (08/22/2009 0:00 EST) Pathology Report: CYTOPATHOLOGY REPORT ? [facility] ? LAB Reports generated via [employer] interface contain original data; ? however they are lacking the format of the original report. ? Caution should be taken when reading/interpreting unformatted reports. ? Name: ? BRIANNA BERMAN ? Accession #: ? [id number] ? : ? 1940 (Age: 69) ??F ?Collect Date: ? 08/22/2009 ? Location: ? [facility] ? Receive Date: ? 08/24/2009 ? Provider: ?SREE P LORIE TER MD ? Copy to: ? Specimen/Source: ? Pap Test, Vagina/Cervix/Endocervix, ThinPrep Imaging ? System with manual evaluatio n ? Last Menstrual Period: ? Previous Gynecologic Patholo gy: ? Yes: fibroids, atrophic vagi nitis ? SPECIMEN ADEQUACY ? Satisfactory for Eval uation ? - transformation zone compon ent present ? GENERAL CATEGORIZATION ? Negative for Intraepi thelial Lesion or Malignancy ? Document reviewed and electr onically signed by: ? Garfield Stumler, CT( CP) ? Report Date: ??02/15/ 2010 14:21 ? End of Report ? Specimen Performing Organization Address City/State/[facility] Code Phon e Number [facility] [address] [place] [address] SERVICES [facility] [address] [place] [address] documented in this encounter Visit Diagnoses Not on filedocumented in this encounter Care Teams Coordinator Of Health Services Relationship Specialty Start Date End Date Unknown, Provider, PCP - General 11/01/08 documented as of this encounter
--- OUTSIDE RECORDS SUMMARY | 2022-03-07 01:42 | XMS_ITS | Encounter Summary ---
:1940 Author Organization [facility] Address [address] [place] [address] Care Team Providers Name Role Phone Unknown, Provider Primary Care Provider Encounter Details Date Type Department Care Team Description 10/27/2008 Orders Only [facility] Nhan Pacheco , Laboratory Services - [address] [place] [address] [place] [address] [phone] Social History Tobacco Use Types Packs/Day Years Used Date Never Assessed Sex Assigned at Date Recorded Not on file documented as of this encounter Plan of Treatment Not on filedocumented as of this encounter Procedures Procedure Name Priority Date/Time Associated Diagnosis Comme [facility] SURGICAL PATHOLOGY Routine 10/27/2008 0:00 EDT Re sults for this procedure are i n the results section. documented in this encounter Results SURGICAL PATHOLOGY (10/27/2008 0:00 EDT) Pathology Report: SURGICAL PATHOLOGY REPORT ? DELIA SHEPPARD Reports generated via [employer] interface contain original data; ? LAB however they are lacking the format of the original report. ? Caution should be taken when reading/interpreting unformatted reports. ? Name: ? WOOD, BRIANNA ? Accession #: ? [id number] ? : ? 1940 (Age: 68) ??F ? Collec t Date: ? 10/27/2008 ? Location: ? [facility] ? R eceive Date: ? 10/30/2008 ? Provider: NHAN HENNESSY SON DO ? Copy to: ABBY COBOS PA ? Final Pathologic Diagnosis: ? Skin of thoracic christian on, left side posterior, excision: ? - Seborrheic keratosis, pigm ented. ? Microscopic Description: ? The stratum corneum i s thickened by compact and basketweave orthokeratosis with formation of horn pseud ocysts. ??The epidermis is acanthotic with formation of broad and anastomosing tr abeculae. ??The trabeculae are composed of basaloid ?? keratinocytes with round uni form nuclei. ??The keratinocytes have a variable ? amount of melanin pigment. ? ?(Dr. Velázquez)/ljn ? Document reviewed and electr onically signed by: ? Bailey Velázquez MD ? Report ??Date: 11/01/2008 16 :17 ? By the signature above, the attending physician certifies that he/she has ? personally conducted a gross and/or microscopic examination of the described ? specimens and rendered or co nfirmed the above diagnosis. ? Specimen(s) Received: ? Skin lesion left side posterior thoracic region, suture lateral ? Clinical History: ? Skin lesion, left susan e of back, changing color ? Gross Description: ? Received in formalin labelled Brianna Peoples and skin lesion Lt side of ?? back is an oriented ellipti karlie excision of wang-brown skin with a suture at one tip designating the lateral aspect. ??The specimen measures 2.3 cm from lateral ?? to medial, and 1.2 cm from s uperior to inferior, and is excised to a depth of ?? 0.8 cm. ??There is a central wang-brown keratotic plaque which measures 1.8 x 1.0 x 0.1 cm. ??The lesion has a n eccentric dark brown focus which measures 0.4 x 0.3 cm. ??The superior aspect is blue-inked and the inferior aspect is black-inked. ?? The specimen is serially sec tioned from medial to lateral and entirely submitted as follows: ? BLOCK PABLO ? A1 ?Medial tip, reverse en face ? A2-A4 ?Central sections ? A5 ?Lateral tip , reverse en face ? (A. Kaiser)/mpl ? End of Report ? Specimen Performing Organization Address City/State/[facility] Code Phon e Number [facility] [address] [place] [address] SERVICES [facility] [address] [place] [address] documented in this encounter Visit Diagnoses Not on filedocumented in this encounter Care Teams Food Service Technician Relationship Specialty Start Date End Date Unknown, Provider, PCP - General 11/01/08 documented as of this encounter
[2022-03-07] MEDS: rOPINIRole 0.5 MG TAB PO ×2 (02:05→19:38)
[2022-03-07] MEDS: Gabapentin 300 MG CAP PO ×2 (02:06→02:15)
--- NOTE | 2022-03-07 02:28 | NUR.NOTE ---
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 she said i was tired before but now i am just exhausted She acknowledges she has tried to get help from services such as meals on wheels and through her taoist but it hasnt been enough. she feel stressed and burdened by this. active listening and validation provided. pt states she would like to take her night time medications and go to bed.
[2022-03-07] MEDS: Ibuprofen 400 MG TAB PO ×2 (02:34→21:11)
--- NOTE | 2022-03-07 06:01 | W.PM.HP.N ---
Date of service: 03/07/22 Time of Service: 06:01 Assessment and Plan Assessment and plan (1) Dizziness: Status: Acute Assessment and plan: DDx: vertigo vs side effect of medication/inappropriately taking medications vs orthostasis vs anxiety. Arrhythmia less likely since the patient was symptomatic in the ED without evidence of arrhythmias at that time, but we will watch her on tele given h/o SVT. We will repeat orthostatic BP measurements to ensure they were done correctly in the ED. Will offer another 500 cc of IV hydration w/ LR. Will c/s PT given patient's symptoms when looking down and to the right. Per my review of patient's medications, none of them appeared new, but the patient states she takes mirtazapine in am, which could be contributing to fatigue. Will reschedule it for night time. Discussed with the patient that reinstituting her CPAP might help her symptoms. C/s palliative care (2) Anxiety with depression: Status: Acute Assessment and plan: Continue home regimen with mirtazapine at night. (3) Paroxysmal SVT (supraventricular tachycardia): Status: Chronic Assessment and plan: Not on any medications for this. Will monitor on tele. (4) Orthostatic hypotension: Status: Acute Assessment and plan: Per ED, not orthostatic there. We will recheck her orthostatic BP measurements. (5) DVT prophylaxis: Status: Acute Assessment and plan: SC enoxaparin (6) Discharge planning issues: Status: Acute Assessment and plan: Full code C/s PT. C/s palliative care History of Present Illness History of Present Illness Chief Complaint: I feel like I am going to pass out Narrative: Ms Peoples is an 81 year old female with PMHx of h/o dizziness, SVT, orthostatic hypotension, early Alzheimer's dementia, anxiety, who presented to [facility] ED with her daughter complaining of dizziness and feeling like she will pass out x 3 days. She specifically describes feeling off balance. She says that she has had to get PT for issues with balance in the past. Additionally, the patient describes feeling spacy and tired. Normally, Hoda gets dizzy when she bends down. However, in the last 3 days she had two episodes of dizziness (one when she had stopped to get an ice cream and once when she was brushing her hair) when bending down actually helped. Denies palpitations, chest pain, shortness of breath, nausea. Did feel a little sweaty. Also, she stopped using her CPAP about a month ago because she was sleeping well. Her ER workup, including bloodwork, UA, CT/CTA head and chest, and CXR was essentially negative. EKG did not show acute ischemia, troponins were negative. The patient was symptomatic in the ED without evidence of arrhythmias on telemetry. She was not orthostatic in the ED. There is a question as to whether the patient has vertigo. Observation on hospitalist service was requested. Review of Systems All systems reviewed & are unremarkable except as noted in HPI and below PFSH All Active Problems (Updated 03/07/22 @ 06:15 by Judith Bowling MD) Dizziness (Acute) Pre-syncope (Acute) Lack of motivation (Acute) Impacted cerumen, bilateral (Acute) Alzheimer's dementia (Acute) very mild Anxiety with depression (Acute) Health care proxy on file (Chronic) Nahomi Breaux, daughter SHAR (Physician Orders for Life-Sustaining Treatment) (Chronic) signed 01/22/21 FULL CODE Insomnia (Acute) MCI (mild cognitive impairment) (Acute) Paroxysmal SVT (supraventricular tachycardia) (Chronic) Goals of care, counseling/discussion (Acute) Palliative care patient (Acute) Anxiety about health (Acute) Dyspnea (Acute) Urticaria, chronic (Chronic) Discharge planning issues (Acute) DVT prophylaxis (Acute) Restless leg syndrome (Acute) Normal colonoscopy (Acute) Mild chronic gastritis (Chronic) Idiopathic peripheral neuropathy (Acute) Idiopathic peripheral autonomic neuropathy (Acute) Memory loss (Acute) Abrasion of face (Acute) Facial contusion (Acute) 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 (Acute) Conductive hearing loss, external ear (Acute) Sensorineural hearing loss of both ears (Acute) Dysphagia (Acute) Dyspnea on exertion (Acute) Orthostatic hypotension (Acute) Medical History Allergic rhinitis Bilateral leg pain Bilateral leg weakness Cold feet Dementia mild Dizziness Fatigue Frequent PVCs Gastritis Hearing loss Hives Hx of bronchitis Hx of migraines Iliotibial band friction syndrome of both knees Ingrown toenail Insect bite Knee joint pain Lung nodule Migraine Myalgia Nail abnormality Obstructive sleep apnea Onychomycosis Osteoporosis Pain in left shoulder Palpitations Pelvic floor instability Peripheral neuropathy Raynauds syndrome Tubular adenoma Surgical History H/O foot surgery r foot surgerly H/O knee surgery L knee surgery-patella History of colonoscopy Hx of tonsillectomy Family History Mother , age 86 from dementia with hallucinations ? lewy body Dementia Father , age 89 from prostate cancer and malnutrition Prostate cancer Malnutrition Sister , age 80 from dementia, unspecified type Dementia Daughter No problems noted. Son No problems noted. 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 Do you think of yourself as: straight/heterosexual Current gender identity: female What is your relationship status?: How often do you talk on the phone with friends or family?: three or more times per week How often do you get together with friends or relatives?: three or more times per week Panel score (0-1 are the most socially isolated patients): 2 What type of physical activity do you participate in: walking Duration: < 15 minutes/day Frequency: does not exercise Special antoinette needs: No Seatbelt use: always Do you feel safe at home: Yes Do you feel safe in your relationship?: Yes Meds Allergies and Home Medications Allergies Allergy/AdvReac Type Severity Reaction Status Date / Time hydroxyzine Allergy Severe Pt states Verified 03/06/22 20:25 lips and eyes swell up cetirizine [From Zyrtec] Allergy Mild Verified 03/06/22 20:25 rivastigmine [From Exelon] Allergy Mild Nausea and Verified 03/06/22 20:25 rash sertraline Allergy Unknown Verified 03/06/22 20:25 donepezil HCl [From Aricept] AdvReac Mild Nausea Verified 03/06/22 20:25 Home Medications Medication Instructions Recorded Confirmed Type aspirin 81 mg chewable tablet 81 mg PO DAILY 12/12/14 03/06/22 History (Aspirin Low-Strength) mvwqsvby-[id number] acid 0.4 1 tab PO DAILY 12/12/14 03/06/22 History mg-lycopene 300 mcg-lutein 250 mcg tablet (Centrum Silver) omega-3 fatty acids-fish oil 340 1 cap PO DAILY 08/02/17 03/06/22 History mg-1,000 mg capsule (Fish Oil) rivastigmine 4.6 mg/24 hour 4.6 mg transdermal DAILY 07/18/19 03/06/22 History transdermal patch (Exelon Patch) simethicone 62.5 mg oral strips 1 strip PO DIRECTED PRN 07/18/19 03/06/22 History (Gas-X) cholecalciferol (vitamin D3) 25 25 mcg PO DAILY 01/09/21 03/06/22 History mcg (1,000 unit) capsule clobetasol 0.05 % topical cream 1 applic topical BID 01/09/21 02/27/22 History cyanocobalamin (vitamin B-12) 1,000 mcg PO DAILY 01/09/21 03/06/22 History 1,000 mcg capsule diclofenac sodium 1 % topical gel 2 g topical BID PRN 01/09/21 03/06/22 History (Voltaren) estradiol 0.01% (0.1 mg/gram) 1 g vaginal .1-3 times a week 01/09/21 02/27/22 History vaginal cream (Estrace) gabapentin 300 mg capsule 600 mg PO QHS 01/09/21 03/06/22 History hawthorn 500 mg capsule 1 mg PO DAILY 01/09/21 02/27/22 History ropinirole 0.5 mg tablet 0.5 mg PO DAILY 05/09/21 03/06/22 History memantine 10 mg tablet 10 mg PO BID #180 tabs 09/10/21 03/06/22 Rx mirtazapine 30 mg tablet 15 mg PO DAILY 09/10/21 03/06/22 History escitalopram oxalate 10 mg tablet 10 mg PO DAILY #30 tabs 01/20/22 03/06/22 Rx Exam Narrative Exam Narrative: General: Anxious elderly female who looks tired. A&Ox3, NAD Neurological: A&Ox3, dizziness is elicited when patient is looking down and to the right; however, no nystagmus. No focal deficits Psychiatric: Anxious Skin: Visible skin intact HEENT: Atraumatic, normocephalic, EOMI, MMM, clar oropharynx, no submandibular or cervical lymphadenopathy, no goiter or JVD Cardiovascular: RRR, no m/r/g Lungs: CTAB Gastrointestinal: soft, nontender, nondistneded Genitourinary: deferred Extremities: no edema, clubbing, or cyanosis, 1+ pedal pulses B. Results Imaging Additional studies: CT head w/o contrast: No acute intracranial findings. CXR: Minimal subsegmental atelectasis in the right mid lung zone and left lung base. CTA head: No acute arterial pathology. Patent [place]. CTA neck: No acute arterial pathology. Patent carotid and vertebral system bilaterally. CTA chest: 1. No acute findings. 2. No pulmonary emboli are seen. 3. Trace right greater than left pleural fluid is similar. 4. Incidental findings as described. EKG: SB, HR 52, inferolateral ST-T changes Labs Result diagrams: 03/06/22 21:27 03/06/22 07:09 Labs: Laboratory Results - last 24 hr 03/06/22 03/06/22 03/06/22 07:09 07:09 21:27 WBC RBC Hgb Hct MCV MCH MCHC RDW Plt Count MPV Immature Gran % Neutrophils % Lymphocytes % Monocytes % Eosinophils % Basophils % Nucleated RBC % Absolute Neutrophils Absolute Lymphocytes Absolute Monocytes Absolute Eosinophils Absolute Basophils Sodium 138 Potassium 4.0 Chloride 102 Carbon Dioxide 30.5 Anion Gap 5.5 BUN 23 H Creatinine 0.8 Estimated GFR/1.73 m2 >= 60.00 Glucose 107 H Calcium 8.8 Magnesium 2.3 Total Bilirubin 0.3 AST 24 ALT 30 Alkaline Phosphatase 50 Troponin I < 50 Total Protein 7.2 Albumin 3.5 TSH 2.04 Urine Color Yellow Urine Clarity Clear Urine pH 7.0 Ur Specific [place] 1.020 Urine Protein Negative Urine Ketones Negative Urine Blood Negative Urine Nitrite Negative Urine Bilirubin Negative Urine Urobilinogen 0.2 Ur Leukocyte Esterase Negative Urine Glucose Negative COVID-19 Source SARS-CoV-2 (PCR) 03/06/22 03/06/22 21:27 22:55 WBC 5.56 RBC 4.68 Hgb 14.1 Hct 41.1 MCV 88 MCH 30.1 MCHC 34.3 RDW 12.1 Plt Count 150 MPV 9.3 Immature Gran % 0.4 Neutrophils % 45.3 Lymphocytes % 39.0 Monocytes % 9.2 Eosinophils % 5.4 Basophils % 0.7 Nucleated RBC % 0.0 Absolute Neutrophils 2.52 Absolute Lymphocytes 2.17 Absolute Monocytes 0.51 Absolute Eosinophils 0.30 Absolute Basophils 0.04 Sodium Potassium Chloride Carbon Dioxide Anion Gap BUN Creatinine Estimated GFR/1.73 m2 Glucose Calcium Magnesium Total Bilirubin AST ALT Alkaline Phosphatase Troponin I Total Protein Albumin TSH Urine Color Urine Clarity Urine pH Ur Specific [place] Urine Protein Urine Ketones Urine Blood Urine Nitrite Urine Bilirubin Urine Urobilinogen Ur Leukocyte Esterase Urine Glucose COVID-19 Source Nasal/Nares SARS-CoV-2 (PCR) Negative Last Vital Signs Temp 35.6 C L 03/07/22 02:02 Pulse 55 L 03/07/22 02:02 Resp 16 03/07/22 02:02 BP 160/80 H 03/07/22 02:02 Pulse Ox 100 03/07/22 02:02
[2022-03-07 06:45] LABS: Anion Gap 4.1 mmol/L (3-11); BUN 17 mg/dL (7-18); CO2 28.9 mmol/L (21.0-32.0); CREATININE 0.8 mg/dL (0.55-1.02); Calcium 8.3 mg/dL (8.5-10.1); Chloride 104 mmol/L (98-107); Glucose 93 mg/dL (74-106); Magnesium 2.1 mg/dL (1.8-2.4); Potassium 4.3 mmol/L (3.5-5.1); Sodium 137 mmol/L (136-145)
[2022-03-07] MEDS: Omnipaque 350 MG/ML 100 ML BTL IJ (06:46)
[2022-03-07 07:13] LABS: HCT 39.9 % (36.0-46.0); HGB 13.7 g/dL (11.2-15.7); MCH 29.8 pg (27.0-33.0); MCHC 34.3 % (32.0-36.0); MCV 87 fL (80-95); MPV 9.5 fL (8.0-11.0); Platelet Count 141 10^3/uL (130-400); RBC 4.59 10^6/uL (3.93-5.22); RDW 11.9 % (11.7-14.6); RDW-SD 38.1 fL; WBC 4.57 10^3/uL (4.4-10.8)
[2022-03-07] MEDS: Lactated Ringers 1,000 ML 125 ML IV (08:39)
[2022-03-07] MEDS: Cyanocobalamin 500 MCG TAB 1000 MCG PO (08:40)
[2022-03-07] MEDS: Cholecalciferol (Vitamin D3) 1,000 UNIT TAB 1000 UNITS PO (08:40)
[2022-03-07] MEDS: Enoxaparin 40 MG/0.4 ML SYR SC (08:40)
[2022-03-07] MEDS: Omega-3 Fatty Acids 1000 MG CAP PO (08:40)
[2022-03-07] MEDS: Multivitamin TAB 1 TAB PO (08:40)
[2022-03-07] MEDS: Aspirin 81 MG CHEW PO (08:40)
[2022-03-07] MEDS: Memantine 5 MG TAB 10 MG PO ×2 (08:40→19:37)
[2022-03-07] MEDS: Escitalopram 10 MG TAB PO (08:40)
[2022-03-07] MEDS: Normal Saline Flush 10 ML SYR IVP ×2 (08:41→21:14)
--- NOTE | 2022-03-07 09:15 | INITIAL_ITS ---
- If Service Date Differs Date of service: 03/07/22 Time of Service: 09:15 Care Management Initial Assess REASON FOR HOSPITALIZATION:: dizziness PAST MEDICAL HISTORY/PAST SURGICAL HISTORY:: ll Active Problems (Updated 03/07/22 @ 06:15 by Judith Bowling MD). Dizziness (Acute). Pre-syncope (Acute). Lack of motivation (Acute). Impacted cerumen, bilateral (Acute). Alzheimer's dementia (Acute). very mild. Anxiety with depression (Acute). Health care proxy on file (Chronic). Nahomi Breaux, daughter. POLST (Physician Orders for Life-Sustaining Treatment) (Chronic). signed 01/22/21 FULL CODE. Insomnia (Acute). MCI (mild cognitive impairment) (Acute). Paroxysmal SVT (supraventricular tachycardia) (Chronic). Goals of care, counseling/discussion (Acute). Palliative care patient (Acute). Anxiety about health (Acute). Dyspnea (Acute). Urticaria, chronic (Chronic). Discharge planning issues (Acute). DVT prophylaxis (Acute). Restless leg syndrome (Acute). Normal colonoscopy (Acute). Mild chronic gastritis (Chronic). Idiopathic peripheral neuropathy (Acute). Idiopathic peripheral autonomic neuropathy (Acute). Memory loss (Acute). Abrasion of face (Acute). Facial contusion (Acute). 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 (Acute). Conductive hearing loss, external ear (Acute). Sensorineural hearing loss of both ears (Acute). Dysphagia (Acute). Dyspnea on exertion (Acute). Orthostatic hypotension (Acute). Medical History . Allergic rhinitis. Bilateral leg pain. Bilateral leg weakness. Cold feet. Dementia. mild. Dizziness. Fatigue. Frequent PVCs. Gastritis. Hearing loss. Hives. Hx of bronchitis. Hx of migraines. Iliotibial band friction syndrome of both knees. Ingrown toenail. Insect bite. Knee joint pain. Lung nodule. Migraine. Myalgia. Nail abnormality. Obstructive sleep apnea. Onychomycosis. Osteoporosis. Pain in left shoulder. Palpitations. Pelvic floor instability. Peripheral neuropathy. Raynauds syndrome. Tubular adenoma. Surgical History . H/O foot surgery. r foot surgerly. H/O knee surgery. L knee surgery-patella. History of colonoscopy. Hx of tonsillectomy PREVIOUS FUNCTIONAL STATUS/SOCIAL/FAMILY SUPPORTS:: Hoda lives in a single family home in [place] with her Sung. She has 3 children. Her daughter Nahomi lives in [facility] and is very supportive. She has another daughter in [place] and a son in [place]. Hoda uses a walker at home and has a housekeeper head once a month and meals on Wheels twice a weeek. Hoda also has a Life Alert for herself and one for her . CURRENT FUNCTIONAL STATUS:: Hoda was sitting up in a chair when CM met with her. She was supposed to be discharged this morning but had another dizzy spell and was hypotensive so the discharge order was cancelled.She has had 2 doses of mididrine today and her blood pressures have been stable since. Hoda shared that she has not been feeling well for several days. She stated that she had trouble walking and felt spacey and had no energy. Hoda also shared that she has been having a harder time managing at home. She has gone to [facility] asking for assistance. She has been told that she and Sung do not qualify for [facility] because they exceed income limits. She did inform CM that she has also asked her mandaen for assistance and that they are working on it. Has patient been provided with info about the portal/API?: Yes Did the patient sign up for the portal?: Yes (previously) CODE STATUS:: Full Code INSURANCE COVERAGE / FINANCIAL ISSUES:: Medicare. AARP CURRENT HOME/COMMUNITY SERVICES/EQUIPMENT:: Hoda has a walker. She receives Meals on Wheels 2 days a week and has a housekeeper head once a month. Hoda and Sung also both have Life Alerts. PRIMARY CARE PHYSICIAN:: Shawna Couch POTENTIAL DISCHARGE NEEDS:: follow up with PCP and plan of care PATIENT/FAMILY EDUCATION NEEDS:: Review of discharge instructions, limitations, follow up plan, Ask Me Three TRANSPORTATION:: via private vehicle with family PLAN:: Hoda will likely be discharged home with no new services. She will follow up with her community providers and plan of care. Hoda will either transport via private vehicle with her daughter or via RCT coordinated by CM.
--- NOTE | 2022-03-07 10:18 | DSE_ITS ---
Date of service: 03/07/22 Time of Service: 10:19 DS: Diagnosis Discharge Diagnosis (1) Dizziness: Status: Acute (2) Anxiety with depression: Status: Acute (3) Paroxysmal SVT (supraventricular tachycardia): Status: Chronic (4) Orthostatic hypotension: Status: Acute (5) DVT prophylaxis: Status: Acute (6) Discharge planning issues: Status: Acute Discharge Plan Disposition Patient Disposition: HOME Condition: Stable Discharge Details Reason For Visit: Presyncope,Vertigo Admit Date/Time: 03/07/22 00:39 Admit Provider: Judith Bowling Attending Provider: Judith Bowling Primary Care Provider: Shawna Couch V Hospital Course Hospital Course: Ms Peoples is an 81 year old female with PMHx of h/o dizziness,? SVT,? orthostatic hypotension, early Alzheimer's dementia, anxiety, who presented to [facility] ED with her daughter complaining of dizziness and feeling like she will pass out x 3 days. She specifically describes feeling off balance. She says that she has had to get PT for issues with balance in the past. Additionally, the patient describes feeling spacy and tired. Normally, Hoda gets dizzy when she bends down. However, in the last 3 days she had two episodes of dizziness (one when she had stopped to get an ice cream and once when she was brushing her hair) when bending down actually helped. Denies palpitations, chest pain, shortness of breath, nausea. Did feel a little sweaty.? Also, she stopped using her CPAP about a month ago because she was sleeping well. Her ER workup, including bloodwork, UA, CT/CTA head and chest, and CXR was essentially negative. EKG did not show acute ischemia, troponins were negative. The patient was symptomatic in the ED without evidence of arrhythmias on telemetry. She was not orthostatic in the ED. There is a question as to whether the patient has vertigo. Observation on hospitalist service was requested. Labs were unremarkable. The morning following admission she was noted to have orthostasis with a systolic BP change from 115 to 93. She felt lightheaded/dizzy. Home Meds and New Rx's Prescriptions: Continued mirtazapine 30 mg tablet 15 mg PO DAILY memantine 10 mg tablet 10 mg PO BID Qty: 180 3RF ropinirole 0.5 mg tablet 0.5 mg PO DAILY escitalopram oxalate 10 mg tablet 10 mg PO DAILY Qty: 30 1RF Gas-X 62.5 mg strip 1 strip PO DIRECTED PRN rivastigmine [Exelon Patch] 4.6 mg/24 hr patch 24 hour 4.6 mg TD DAILY gabapentin 300 mg capsule 600 mg PO QHS hawthorn 500 mg capsule 1 mg PO DAILY cyanocobalamin (vitamin B-12) 1,000 mcg capsule 1,000 mcg PO DAILY clobetasol 0.05 % cream 1 applic topical BID cholecalciferol (vitamin D3) 25 mcg (1,000 unit) capsule 25 mcg PO DAILY estradiol [Estrace] 0.01 % (0.1 mg/gram) cream 1 g vaginal .1-3 times a week diclofenac sodium [Voltaren] 1 % gel 2 g topical BID PRN Rx Instructions: apply to single elbow, wrist or hand; for hand includes palm/fingers/back of hand aspirin [Aspirin Low-Strength] 81 MG tablet,chewable 81 mg PO DAILY Centrum Silver 1 EACH tablet 1 tab PO DAILY Fish Oil 1 EACH capsule 1 cap PO DAILY Discharge Instructions Instructions: Mirtazapine (By mouth), Vertigo (DC) Stand Alone Forms: Nursing Discharge Form Referrals: Shawna Couch MD [Primary Care Provider] - 03/11/22 2:30 pm Activity:: Activity as Tolerated Equipment/Supplies:: No Equipment Needed Diet:: resume home diet DS: Summary Status at Discharge Mood: congruent mood Affect: normal affect Exam Narrative Exam Narrative: Sitting in chair; just ambulated across the room. NAD. Pleasant and conversant. Const General: cooperative Orientation: alert and oriented x3 Eyes General: appearance normal, both eyes and all related structures Sclera: sclerae normal Resp Effort & Inspection: normal respiratory effort Auscultation: clear to auscultation bilaterally Cardio Rate: regular rate Rhythm: regular rhythm Heart Sounds: S1 normal and S2 normal Neuro General: no focal motor deficits Cranial Nerves: facial strength normal Speech: speech normal Gait: normal gait Psych Appearance: grossly normal Mood: congruent mood Affect: normal affect DS: Data Vitals/I&O Vitals and I&O: Vital Signs Temperature 36.4 C L 03/07/22 07:38 Temperature Source Tympanic 03/07/22 07:38 Pulse 60 03/07/22 10:17 Pulse Rhythm Regular 03/07/22 01:38 Pulse 59 L 03/07/22 01:10 Respiratory Rate 18 03/07/22 07:38 Respiratory Effort Non-Labored 03/07/22 01:38 Respiratory Depth Normal 03/07/22 01:38 Respiratory Pattern Normal 03/07/22 01:38 Blood Pressure 115/72 03/07/22 10:17 Blood Pressure Mean 85 03/07/22 01:00 Blood Pressure Position Supine 03/06/22 20:22 Pulse Oximetry 99 03/07/22 07:38 Oxygen Delivery Method Room Air 03/07/22 07:38 Oxygen Flow Rate 0 03/07/22 07:38 Pain Level 0 03/07/22 07:38 Comment 03/07/22 07:38 Intake & Output 03/06/22 03/06/22 03/07/22 11:59 23:59 11:59 Intake Total 1000 / 1000 Output Total 600 / 600 Balance 1000 / 1000 -600 / -600 Weight 70.76 kg 72.6 kg Intake: IV 1000 / 1000 Output: Urine 600 / 600 Other: Urine Color Pale Yellow Urine Appearance Clear Voiding Methods Toilet Data Completed and Pending Labs on day of discharge: Labs from last 24 hours 03/07/22 03/07/22 03/06/22 06:07 06:07 22:55 WBC 4.57 RBC 4.59 Hgb 13.7 Hct 39.9 MCV 87 MCH 29.8 MCHC 34.3 RDW 11.9 Plt Count 141 MPV 9.5 Immature Gran % Neutrophils % Lymphocytes % Monocytes % Eosinophils % Basophils % Nucleated RBC % Absolute Neutrophils Absolute Lymphocytes Absolute Monocytes Absolute Eosinophils Absolute Basophils Sodium 137 Potassium 4.3 Chloride 104 Carbon Dioxide 28.9 Anion Gap 4.1 BUN 17 Creatinine 0.8 Estimated GFR/1.73 m2 >= 60.00 Glucose 93 Calcium 8.3 L Magnesium 2.1 Total Bilirubin AST ALT Alkaline Phosphatase Troponin I Total Protein Albumin TSH Urine Color Urine Clarity Urine pH Ur Specific Arnold Urine Protein Urine Ketones Urine Blood Urine Nitrite Urine Bilirubin Urine Urobilinogen Ur Leukocyte Esterase Urine Glucose A.phagocytophil DNA PCR B. divergens/MO-1 PCR Babesia duncani (PCR) Babesia microti DNA PCR Borrelia (PCR) Lyme Disease Antibody COVID-19 Source Nasal/Nares SARS-CoV-2 (PCR) Negative E.chaffeensis DNA (PCR) E.ewingii/canis DNA PCR E. muris-like DNA (PCR) 03/06/22 03/06/22 03/06/22 21:27 21:27 21:27 WBC 5.56 RBC 4.68 Hgb 14.1 Hct 41.1 MCV 88 MCH 30.1 MCHC 34.3 RDW 12.1 Plt Count 150 MPV 9.3 Immature Gran % 0.4 Neutrophils % 45.3 Lymphocytes % 39.0 Monocytes % 9.2 Eosinophils % 5.4 Basophils % 0.7 Nucleated RBC % 0.0 Absolute Neutrophils 2.52 Absolute Lymphocytes 2.17 Absolute Monocytes 0.51 Absolute Eosinophils 0.30 Absolute Basophils 0.04 Sodium Potassium Chloride Carbon Dioxide Anion Gap BUN Creatinine Estimated GFR/1.73 m2 Glucose Calcium Magnesium 2.3 Total Bilirubin AST ALT Alkaline Phosphatase Troponin I < 50 Total Protein Albumin TSH 2.04 Urine Color Urine Clarity Urine pH Ur Specific Arnold Urine Protein Urine Ketones Urine Blood Urine Nitrite Urine Bilirubin Urine Urobilinogen Ur Leukocyte Esterase Urine Glucose A.phagocytophil DNA PCR Pending B. divergens/MO-1 PCR Pending Babesia duncani (PCR) Pending Babesia microti DNA PCR Pending Borrelia (PCR) Pending Lyme Disease Antibody Pending COVID-19 Source SARS-CoV-2 (PCR) E.chaffeensis DNA (PCR) Pending E.ewingii/canis DNA PCR Pending E. muris-like DNA (PCR) Pending 03/06/22 03/06/22 07:09 07:09 WBC RBC Hgb Hct MCV MCH MCHC RDW Plt Count MPV Immature Gran % Neutrophils % Lymphocytes % Monocytes % Eosinophils % Basophils % Nucleated RBC % Absolute Neutrophils Absolute Lymphocytes Absolute Monocytes Absolute Eosinophils Absolute Basophils Sodium 138 Potassium 4.0 Chloride 102 Carbon Dioxide 30.5 Anion Gap 5.5 BUN 23 H Creatinine 0.8 Estimated GFR/1.73 m2 >= 60.00 Glucose 107 H Calcium 8.8 Magnesium Total Bilirubin 0.3 AST 24 ALT 30 Alkaline Phosphatase 50 Troponin I Total Protein 7.2 Albumin 3.5 TSH Urine Color Yellow Urine Clarity Clear Urine pH 7.0 Ur Specific Arnold 1.020 Urine Protein Negative Urine Ketones Negative Urine Blood Negative Urine Nitrite Negative Urine Bilirubin Negative Urine Urobilinogen 0.2 Ur Leukocyte Esterase Negative Urine Glucose Negative A.phagocytophil DNA PCR B. divergens/MO-1 PCR Babesia duncani (PCR) Babesia microti DNA PCR Borrelia (PCR) Lyme Disease Antibody COVID-19 Source SARS-CoV-2 (PCR) E.chaffeensis DNA (PCR) E.ewingii/canis DNA PCR E. muris-like DNA (PCR) PFSH All Active Problems Dizziness (Acute) Pre-syncope (Acute) Lack of motivation (Acute) Impacted cerumen, bilateral (Acute) Alzheimer's dementia (Acute) very mild Anxiety with depression (Acute) Health care proxy on file (Chronic) Nahomi Breaux, daughter SHAR (Physician Orders for Life-Sustaining Treatment) (Chronic) signed 01/22/21 FULL CODE Insomnia (Acute) MCI (mild cognitive impairment) (Acute) Paroxysmal SVT (supraventricular tachycardia) (Chronic) Goals of care, counseling/discussion (Acute) Palliative care patient (Acute) Anxiety about health (Acute) Dyspnea (Acute) Urticaria, chronic (Chronic) Discharge planning issues (Acute) DVT prophylaxis (Acute) Restless leg syndrome (Acute) Normal colonoscopy (Acute) Mild chronic gastritis (Chronic) Idiopathic peripheral neuropathy (Acute) Idiopathic peripheral autonomic neuropathy (Acute) Memory loss (Acute) Abrasion of face (Acute) Facial contusion (Acute) 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 (Acute) Conductive hearing loss, external ear (Acute) Sensorineural hearing loss of both ears (Acute) Dysphagia (Acute) Dyspnea on exertion (Acute) Orthostatic hypotension (Acute) Medical History Allergic rhinitis Bilateral leg pain Bilateral leg weakness Cold feet Dementia mild Dizziness Fatigue Frequent PVCs Gastritis Hearing loss Hives Hx of bronchitis Hx of migraines Iliotibial band friction syndrome of both knees Ingrown toenail Insect bite Knee joint pain Lung nodule Migraine Myalgia Nail abnormality Obstructive sleep apnea Onychomycosis Osteoporosis Pain in left shoulder Palpitations Pelvic floor instability Peripheral neuropathy Raynauds syndrome Tubular adenoma Surgical History H/O foot surgery r foot surgerly H/O knee surgery L knee surgery-patella History of colonoscopy Hx of tonsillectomy Family History Mother , age 86 from dementia with hallucinations ? lewy body Dementia Father , age 89 from prostate cancer and malnutrition Prostate cancer Malnutrition Sister , age 80 from dementia, unspecified type Dementia Daughter No problems noted. Son No problems noted. 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
--- NOTE | 2022-03-07 10:21 | IN_ITS ---
Date of service: 03/07/22 Time of Service: 10:21 PT Notes Visit Reasons: Presyncope,Vertigo Physical Therapy Inpatient Initial Evaluation Date: 03/07/2022 Referring Doctor: Judith Bowling MD PT Orders: PT CONSULT: Limited ability Precautions: Fall. Standard. Activity as tolerated. Patient Profile/Admitting Diagnosis: Patient is an 81-year-old female patient who presented to the ED on 03/06/2022 with report of dizziness and feeling of passing out. Patient is diagnosed with dizziness, anxiety with depression, and othostatic hypotension. PMHX: All Active Problems?(Updated 03/07/22 @ 06:15 by Judith Bowling MD) Dizziness (Acute) Pre-syncope (Acute) Lack of motivation (Acute) Impacted cerumen, bilateral (Acute) Alzheimer's dementia (Acute) very mild Anxiety with depression (Acute) Health care proxy on file (Chronic) Nahomi Breaux, daughter SHAR (Physician Orders for Life-Sustaining Treatment) (Chronic) signed 01/22/21 FULL CODE Insomnia (Acute) MCI (mild cognitive impairment) (Acute) Paroxysmal SVT (supraventricular tachycardia) (Chronic) Goals of care, counseling/discussion (Acute) Palliative care patient (Acute) Anxiety about health (Acute) Dyspnea (Acute) Urticaria, chronic (Chronic) Discharge planning issues (Acute) DVT prophylaxis (Acute) Restless leg syndrome (Acute) Normal colonoscopy (Acute) Mild chronic gastritis (Chronic) Idiopathic peripheral neuropathy (Acute) Idiopathic peripheral autonomic neuropathy (Acute) Memory loss (Acute) Abrasion of face (Acute) Facial contusion (Acute) 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 (Acute) Conductive hearing loss, external ear (Acute) Sensorineural hearing loss of both ears (Acute) Dysphagia (Acute) Dyspnea on exertion (Acute) Orthostatic hypotension (Acute) Medical History? Allergic rhinitis Bilateral leg pain Bilateral leg weakness Cold feet Dementia mild Dizziness Fatigue Frequent PVCs Gastritis Hearing loss Hives Hx of bronchitis Hx of migraines Iliotibial band friction syndrome of both knees Ingrown toenail Insect bite Knee joint pain Lung nodule Migraine Myalgia Nail abnormality Obstructive sleep apnea Onychomycosis Osteoporosis Pain in left shoulder Palpitations Pelvic floor instability Peripheral neuropathy Raynauds syndrome Tubular adenoma Surgical History? H/O foot surgery r foot surgerly H/O knee surgery L knee surgery-patella History of colonoscopy Hx of tonsillectomy Social History/Home Situation: Lives with in a private home with 4 steps to enter. Independent with all aspects of ADLs prior to admission. Equipment Owned/DME: None Subjective: Patient reports being spacey and lightheaded when standing up from reclining was attempted. She states that she does not know how she is going to manage at home now that her is not able to help out as much. Mentioned something about going home this morning as she has a doctor's appointment. Reported in creased nausea in standing. Nurse Rehana and Amanda have been updated. JAMES De Leon retook VS and found patient to be orthostatic and symptomatic. Patient also reports being weak and tummy being upset. MD updated. Objective: General Observation: Seated on bedside recliner. Telemetry monitoring in place. Minimal swelling noted in B legs. Mental Status: Alert and oriented as to person, place, time, and purpose. Able to pay attention, focus, and respond appropriately. Pain: Denies Vital Signs: 97/62 mmHg in sitting, 68/41 mmHg in standing up, and 106/61 mmHg sitting back down ROM: Right Upper Extremity: Shoulder Flexion WFL. Shoulder abduction WFL. Elbow flexion WFL. Wrist flexion WFL. Functional opening and closing of hand WFL. Left Upper Extremity: Shoulder Flexion WFL. Shoulder abduction WFL. Elbow flexion WFL. Wrist flexion WFL. Functional opening and closing of hand WFL. Right Lower Extremity: Hip flexion WFL. Hip abduction WFL. Knee flexion WFL. Ankle dorsiflexion WFL. Ankle plantarflexion WFL. Left Lower Extremity: Hip flexion WFL. Hip abduction WFL. Knee flexion WFL. Ankle dorsiflexion WFL. Ankle plantarflexion WFL. Strength: Right Upper Extremity: Shoulder flexors 4-/5. Shoulder abductors 4-/5. Elbow flexors 4-/5. Elbow extensors 4-/5. Utilization Coordinator strong. Left Upper Extremity: Shoulder flexors 4-/5. Shoulder abductors 4-/5. Elbow flexors 4-/5. Elbow extensors 4-/5. Utilization Coordinator strong. Right Lower Extremity: Hip flexors 4-/5. Hip abductors 4-/5. Knee flexors 4-/5. Knee extensors 4-/5. Ankle dorsiflexors 4-/5. Ankle plantarflexors 4-/5. Left Lower Extremity: Hip flexors 4-/5. Hip abductors 4-/5. Knee flexors 4-/5. Knee extensors 4-/5. Ankle dorsiflexors 4-/5. Ankle plantarflexors 4-/5. Bed Mobility/Transfers: Sit to stand contact guard assist Stand to sit contact guard assist Bed to reclining chair contact guard assist Gait: Deferred Balance: Static Sitting: Good Dynamic Sitting: Fair Static Standing: Fair Dynamic Standing: Unable Special Tests: Mobility Limitations Standardized Measure [facility] 6 clicks Basic Mobility Inpatient Short Form: Raw Score: 12 CMS Score: 69% deficit Informed Consent/Education: Patient was instructed in purpose of PT consult and plan of care. Agreeable to proceed with established PT POC to achieve personal goals. Assessment: Communicated concerns for discharge with Nurse Kimball and Dr. Phillips. Dr. Phillips agreed to try out one more time to mobilize patient. Another set of orthostatic BP measurement was taken by provider and patient had 97/62 mmHg in sitting, 68/41 mmHg in standing up, and 106/61 mmHg sitting back down with patient unable to tolerate standing. Deferred ambulation activity this morning. Patient presents with clinical signs and symptoms consistent with current/admitting diagnoses that have resulted to mobility limitations, gait instability, generalized weakness, and overall ADL decline as demonstrated by the following impairment level findings: 1. Decreased strength to B UE/LE major muscle groups 2. Impaired sitting/standing balance 3. Impaired activity tolerance 4. Report of lightheadedness Impairments are contributing to the following functional limitations: 1. Difficulty with ambulation without assistive device and physical assistance 3. Increased completion time for mobility ADL performance 4. Increased risk for falls 5. Difficulty with managing steps alone safely Patient is assessed as a [id number] moderate complexity based on the following: History: 81-year-old female with past medical history as indicated above Examination: Demonstrable impairment in strength, balance, and mobility level with underlying impairments and functional limitations as exhibited above as well as deficit score of 69% utilizing the [facility] Mobility Inpatient Short Form Presentation: Evolving Decision Makin moderate complexity Goals: Goals X1 week 1. Supine-Sit independent 2. Sit-Supine independent 3. Sit-Stand independent 4. Stand-Sit independent with FWW 5. Bed-Chair independent with FWW 6. Chair-Bed independent with FWW 7. Independent gait on level surface with use of FWW for at least 300 feet without report of pain nor dyspnea 8. Independent stair negotiation while holding onto B rails for at least 4 steps without report of pain nor dyspnea 9. Independent with home exercise program 10. Good static and dynamic standing balance/tolerance Plan of Care/Treatment Plan: 1-2x/day, 7 days/week x 1 week. Plan of care has been reviewed with the GEOSPATIAL APPLICATIONS DEVELOPER providing the service under Physical Therapy direction. Initiate Physical Therapy intervention for pain management as needed, strengthening, bed mobility, transfers, gait, stairs, balance training, and use of assistive device. DISCHARGE RECOMMENDATIONS: [] Home with no services [] [X] Home with services. Home when medically cleared by hospitalist. Patient will benefit from home health PT services in order to progress mobility level using least restrictive assistive ambulatory device, assess home safety, identify additional equipment needs, and establish a functional maintenance program that will increase ability of patient to remain at home. [] Home with outpatient PT [] [] SNF for continued rehabilitation [] [] [facility] [] [] SNF versus LTC based on ability to participate and progress [] TREATMENT CODE/TIME: 43425 x 20 minutes, 58083 x 25 minutes beginning at 10:21 AM. Thank you for the opportunity to participate in the care of this patient. Cherry Franco PT, DPT, CLT [facility] [place], [place]
[2022-03-07] MEDS: Midodrine 2.5 MG TAB PO ×2 (11:07→14:17)
--- NOTE | 2022-03-07 14:03 | CHAPLAIN ---
Hoda was in the recliner when I visited. She said she's not feeling much better. She didn't get much sleep last night and is feeling very tired. She expects to be going home soon and said she hopes to be able to catch up on her rest.
--- NOTE | 2022-03-07 15:08 | PT.INTREAT ---
Date of service: 03/07/22 Time of Service: 14:43 PT Notes Visit Reasons: Presyncope,Vertigo Inpatient Physical Therapy Treatment Note [facility] Date: 03/07/2022 PRECAUTIONS: Fall, orthostatic hypotension, dizziness SUBJECTIVE: Hoda states that she is not feeling well. She reports that she feels fine when she is sitting or laying still, but feels instantly dizzy when she stands or moves. OBJECTIVE: PAIN: No c/o pain BED MOBILITY/TRANSFERS Sit-stand: SBA Stand-sit: SBA GAIT Assistive Device: FWW Weight bearing: Full Assist: CGA + SBA Distance: 20' Deviation: Slow pacing, c/o dizziness VITALS: BP: 112/69 in long-sitting position prior to PT session; 98/65 in standing; 124/77 in long-sitting position post session THEREX: Patient was instructed in a LE strengthening program, completed in a seated position, to include: ankle pumps, heel raises, LAQ, and hip flexion. She c/o of feeling terrible with most exercises. ASSESSMENT: Patient appears limited due to dizziness with activity. She tolerates gait training, although demonstrates slow pacing and reports feeling worse. PLAN: Continue with gait training and global strengthening for improved activity tolerance, as symptoms allow. TREATMENT CODE/TIME: 24 minutes; 27796, 07723 (14:43)
[2022-03-07] MEDS: Acetaminophen 325 MG TAB PO ×2 (16:16→20:38)
--- NOTE | 2022-03-07 17:31 | PGE_ITS ---
Date of Service Date of service: 03/07/22 Time of Service: 17:31 Assessment and Plan Assessment and plan (1) Dizziness: Status: Acute Assessment and plan: Occurred today when orthostatic vital signs being take; SBP decreased significantly with position changes but no HR elevations. HR in the 50's most of the night, then in the 50-70's today. Continue telemetry. No arrhythmias observed. Likely has autonomic dysfunction. C/s palliative care (2) Anxiety with depression: Status: Acute Assessment and plan: Continue home regimen with mirtazapine at night. (3) Paroxysmal SVT (supraventricular tachycardia): Status: Chronic Assessment and plan: Not on any medications for this. Cont to monitor on tele. (4) Orthostatic hypotension: Status: Acute Assessment and plan: + orthostatic BP noted today but no HR elevation to compensate for the SBP drop. Likely has a degree of autonomic dysfuntion. MIdodrine initiated. Monitor orthostatic BPs. (5) DVT prophylaxis: Status: Acute Assessment and plan: SC enoxaparin (6) Discharge planning issues: Status: Acute Assessment and plan: Full code C/s PT. C/s palliative care Subjective Subjective Patient reports: tolerating a regular diet and afebrile; denies shortness of breath Interval history since last seen: Patient had no dizziness this AM initially. Had ambulated in the room w/o symptoms. However, when she stood to work with PT she c/o dizziness and she was orthostatic. This occurred again. Exam Narrative Exam Narrative: Sitting in chair; just ambulated across the room. NAD. Pleasant and conversant. Const General: cooperative Orientation: alert and oriented x3 Eyes General: appearance normal, both eyes and all related structures Sclera: sclerae normal Resp Effort & Inspection: normal respiratory effort Auscultation: clear to auscultation bilaterally Cardio Rate: regular rate Rhythm: regular rhythm Heart Sounds: S1 normal and S2 normal Neuro General: no focal motor deficits Cranial Nerves: facial strength normal Speech: speech normal Gait: normal gait Psych Appearance: grossly normal Mood: congruent mood Affect: normal affect Objective Last Vital Signs Temp 36.9 C 03/07/22 15:30 Pulse 56 L 03/07/22 16:06 Resp 16 03/07/22 15:30 BP 150/80 H 03/07/22 16:06 Pulse Ox 98 03/07/22 15:30 Laboratory Results - last 24 hr 03/06/22 03/06/22 03/06/22 07:09 07:09 21:27 WBC RBC Hgb Hct MCV MCH MCHC RDW Plt Count MPV Immature Gran % Neutrophils % Lymphocytes % Monocytes % Eosinophils % Basophils % Nucleated RBC % Absolute Neutrophils Absolute Lymphocytes Absolute Monocytes Absolute Eosinophils Absolute Basophils Sodium 138 Potassium 4.0 Chloride 102 Carbon Dioxide 30.5 Anion Gap 5.5 BUN 23 H Creatinine 0.8 Estimated GFR/1.73 m2 >= 60.00 Glucose 107 H Calcium 8.8 Magnesium 2.3 Total Bilirubin 0.3 AST 24 ALT 30 Alkaline Phosphatase 50 Troponin I < 50 Total Protein 7.2 Albumin 3.5 TSH 2.04 Urine Color Yellow Urine Clarity Clear Urine pH 7.0 Ur Specific Cofield 1.020 Urine Protein Negative Urine Ketones Negative Urine Blood Negative Urine Nitrite Negative Urine Bilirubin Negative Urine Urobilinogen 0.2 Ur Leukocyte Esterase Negative Urine Glucose Negative COVID-19 Source SARS-CoV-2 (PCR) 03/06/22 03/06/22 03/07/22 21:27 22:55 06:07 WBC 5.56 RBC 4.68 Hgb 14.1 Hct 41.1 MCV 88 MCH 30.1 MCHC 34.3 RDW 12.1 Plt Count 150 MPV 9.3 Immature Gran % 0.4 Neutrophils % 45.3 Lymphocytes % 39.0 Monocytes % 9.2 Eosinophils % 5.4 Basophils % 0.7 Nucleated RBC % 0.0 Absolute Neutrophils 2.52 Absolute Lymphocytes 2.17 Absolute Monocytes 0.51 Absolute Eosinophils 0.30 Absolute Basophils 0.04 Sodium 137 Potassium 4.3 Chloride 104 Carbon Dioxide 28.9 Anion Gap 4.1 BUN 17 Creatinine 0.8 Estimated GFR/1.73 m2 >= 60.00 Glucose 93 Calcium 8.3 L Magnesium 2.1 Total Bilirubin AST ALT Alkaline Phosphatase Troponin I Total Protein Albumin TSH Urine Color Urine Clarity Urine pH Ur Specific Cofield Urine Protein Urine Ketones Urine Blood Urine Nitrite Urine Bilirubin Urine Urobilinogen Ur Leukocyte Esterase Urine Glucose COVID-19 Source Nasal/Nares SARS-CoV-2 (PCR) Negative 03/07/22 06:07 WBC 4.57 RBC 4.59 Hgb 13.7 Hct 39.9 MCV 87 MCH 29.8 MCHC 34.3 RDW 11.9 Plt Count 141 MPV 9.5 Immature Gran % Neutrophils % Lymphocytes % Monocytes % Eosinophils % Basophils % Nucleated RBC % Absolute Neutrophils Absolute Lymphocytes Absolute Monocytes Absolute Eosinophils Absolute Basophils Sodium Potassium Chloride Carbon Dioxide Anion Gap BUN Creatinine Estimated GFR/1.73 m2 Glucose Calcium Magnesium Total Bilirubin AST ALT Alkaline Phosphatase Troponin I Total Protein Albumin TSH Urine Color Urine Clarity Urine pH Ur Specific Cofield Urine Protein Urine Ketones Urine Blood Urine Nitrite Urine Bilirubin Urine Urobilinogen Ur Leukocyte Esterase Urine Glucose COVID-19 Source SARS-CoV-2 (PCR)
[2022-03-07] MEDS: Gabapentin 600 MG TAB PO (19:37)
[2022-03-07] MEDS: Midodrine 2.5 MG TAB 5 MG PO (19:38)
[2022-03-07] MEDS: Mirtazapine 15 MG TAB PO (21:11)
[2022-03-08] VITALS (11 sets, daily range): BP systolic 71–176; BP diastolic 47–91; PULSE 52–68; RESP 16–18; TEMP 35.8–36.6; O2SAT 93–98
[2022-03-08] MEDS: Cyanocobalamin 500 MCG TAB 1000 MCG PO (08:00)
[2022-03-08] MEDS: Cholecalciferol (Vitamin D3) 1,000 UNIT TAB 1000 UNITS PO (08:01)
[2022-03-08] MEDS: Escitalopram 10 MG TAB PO (08:01)
[2022-03-08] MEDS: Multivitamin TAB 1 TAB PO (08:01)
[2022-03-08] MEDS: Omega-3 Fatty Acids 1000 MG CAP PO (08:01)
[2022-03-08] MEDS: Midodrine 2.5 MG TAB 5 MG PO ×3 (08:01→14:58)
[2022-03-08] MEDS: Aspirin 81 MG CHEW PO (08:01)
[2022-03-08] MEDS: Memantine 5 MG TAB 10 MG PO ×2 (08:02→19:36)
[2022-03-08] MEDS: Enoxaparin 40 MG/0.4 ML SYR SC (08:02)
--- NOTE | 2022-03-08 08:30 | W.PALLCONSUL ---
Date of service: 03/07/22 Time of Service: 16:30 History of Present Illness Narrative: Ms. Drummond is an 81 y/o F est PC pt currently inpatient at [facility] 2/2 dizziness; PMHx sig for h/o dizziness,? SVT,? orthostatic hypotension, early Alzheimer's dementia, anxiety; present today pt, pt's Sung and daughter Nahomi Hospital course: presented to [facility] ED on 03/06 d/t presyncopal sensation, work up in ED unrevealing, transferred inpatient for observation; remains stable inpatient, w/1 episode of orthostatic hypotension, started on Midodrine today; was to be discharged home today however this was held d/t observed episode of ortho hypotension; plans for discharge home tomorrow pt is feeling better, continues to feel fatigued, no c/o of dizziness at time of visit however concerns over dizziness w/transitions sit to stand; reports was feeling worse for a few days prior to presenting; has not been using CPAP x1mo, will start using to see if it makes a difference w/fatigue, didn't think needed CPAP bc was sleeping fine; Assessment and Plan Assessment and plan (1) Palliative care patient: Status: Acute Assessment and plan: pt established w/PC, continue to follow; PC f/u scheduled for 03/20/22 continue to review CODE status in follow up (2) Dizziness: Status: Acute Assessment and plan: Occurred today when orthostatic vital signs being take; SBP decreased significantly with position changes but no HR elevations.? HR in the 50's most of the night, then in the 50-70's today. Continue telemetry.? No arrhythmias observed.? Likely has autonomic dysfunction. (3) Orthostatic hypotension: Status: Acute Assessment and plan: + orthostatic BP noted today but no HR elevation to compensate for the SBP drop. Likely has a degree of autonomic dysfuntion. MIdodrine initiated.? Monitor orthostatic BPs. (4) Anxiety with depression: Status: Acute Assessment and plan: continues w/mirtazapine, was previously taking in AM d/t feeling groggy in mornings w/QHS dose unclear of escitalopram continued, to f/u outpatient anxiety big contributor to pts health status and memory (5) Memory loss: Status: Acute Assessment and plan: mild anxiety contributing Review of Systems Narrative: see HPI PFSH All Active Problems Dizziness (Acute) Pre-syncope (Acute) Lack of motivation (Acute) Impacted cerumen, bilateral (Acute) Alzheimer's dementia (Acute) very mild Anxiety with depression (Acute) Health care proxy on file (Chronic) Nahomi Breaux, daughter POL (Physician Orders for Life-Sustaining Treatment) (Chronic) signed 01/22/21 FULL CODE Insomnia (Acute) MCI (mild cognitive impairment) (Acute) Paroxysmal SVT (supraventricular tachycardia) (Chronic) Goals of care, counseling/discussion (Acute) Palliative care patient (Acute) Anxiety about health (Acute) Dyspnea (Acute) Urticaria, chronic (Chronic) Discharge planning issues (Acute) DVT prophylaxis (Acute) Restless leg syndrome (Acute) Normal colonoscopy (Acute) Mild chronic gastritis (Chronic) Idiopathic peripheral neuropathy (Acute) Idiopathic peripheral autonomic neuropathy (Acute) Memory loss (Acute) Abrasion of face (Acute) Facial contusion (Acute) 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 (Acute) Conductive hearing loss, external ear (Acute) Sensorineural hearing loss of both ears (Acute) Dysphagia (Acute) Dyspnea on exertion (Acute) Orthostatic hypotension (Acute) Medical History Allergic rhinitis Bilateral leg pain Bilateral leg weakness Cold feet Dementia mild Dizziness Fatigue Frequent PVCs Gastritis Hearing loss Hives Hx of bronchitis Hx of migraines Iliotibial band friction syndrome of both knees Ingrown toenail Insect bite Knee joint pain Lung nodule Migraine Myalgia Nail abnormality Obstructive sleep apnea Onychomycosis Osteoporosis Pain in left shoulder Palpitations Pelvic floor instability Peripheral neuropathy Raynauds syndrome Tubular adenoma Surgical History H/O foot surgery r foot surgerly H/O knee surgery L knee surgery-patella History of colonoscopy Hx of tonsillectomy Family History Mother , age 86 from dementia with hallucinations ? lewy body Dementia Father , age 89 from prostate cancer and malnutrition Prostate cancer Malnutrition Sister , age 80 from dementia, unspecified type Dementia Daughter No problems noted. Son No problems noted. 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 Do you think of yourself as: straight/heterosexual Current gender identity: female What is your relationship status?: How often do you talk on the phone with friends or family?: three or more times per week How often do you get together with friends or relatives?: three or more times per week Panel score (0-1 are the most socially isolated patients): 2 What type of physical activity do you participate in: walking Duration: < 15 minutes/day Frequency: does not exercise Special antoinette needs: No Seatbelt use: always Do you feel safe at home: Yes Do you feel safe in your relationship?: Yes Exam Narrative Exam Narrative: pt lying in bed w/HOB elevated at time of visit; visiting w/family Const General: cooperative, comfortable and no acute distress Orientation: alert, awake and oriented x3 HENMT Head: normal to inspection, normocephalic and atraumatic Ears: hearing grossly normal bilaterally Resp Effort & Inspection: normal respiratory effort, able to speak in complete sentences, no audible wheezes and no cough Psych Appearance: grossly normal Mental Status: mental status grossly normal Speech and Movement: speech clear Affect: normal affect Attitude: cooperative Thought Process: normal, impoverished and other (nervous to return home) Insight: fair Judgment: fair Results Last Vital Signs Temp 96.8 F L 03/08/22 03:05 Pulse 56 L 03/08/22 08:13 Resp 16 03/08/22 03:05 BP 133/71 03/08/22 03:05 Pulse Ox 95 03/08/22 03:05 Labs Result diagrams: 03/07/22 06:07 03/07/22 06:07
--- NOTE | 2022-03-08 09:28 | PT.INTREAT ---
PT Notes Visit Reasons: Presyncope,Vertigo Inpatient Physical Therapy Treatment Note [facility] Date: 03/08/22 SUBJECTIVE: Nursing reports that standing bp is very low and to have pt just try bed exercises this am. Pt reports that she is very dizzy and does not feel well. OBJECTIVE: THEREX: Supine: UE exercises: shoulder horz abd x 10, shoulder flexion x 10, rowing x 10, LE: ankle pumps x 15, Q.S. x 10, hip abd x 5, and heel slides x 5. ASSESSMENT: Pt was very fatigued today and did not feel well. PLAN: Cont as per PT POC as per diane. TREATMENT CODE/TIME: 9:15-9:28 (13) TP
[2022-03-08] MEDS: Acetaminophen 325 MG TAB PO (09:49)
[2022-03-08] MEDS: diazePAM 2 MG TAB PO (10:53)
[2022-03-08] MEDS: Ketorolac 15 MG/ML VIAL IVP (12:05)
[2022-03-08] MEDS: Normal Saline Flush 10 ML SYR IVP (12:06)
--- NOTE | 2022-03-08 16:05 | PGE_ITS ---
Date of Service Date of service: 03/08/22 Time of Service: 16:05 Assessment and Plan Assessment and plan (1) Dizziness: Status: Acute Assessment and plan: Ongoing orthostatic hypotension. This am there was also a componenet of vertigo. She was administered 2mg po valium and 15mg IV toradol. She later felt better. Continue telemetry. No arrhythmias observed though her pulse is frequently in the 50's. . Likely has autonomic dysfunction. C/s palliative care (2) Anxiety with depression: Status: Acute Assessment and plan: Continue home regimen with mirtazapine at night. (3) Paroxysmal SVT (supraventricular tachycardia): Status: Chronic Assessment and plan: Not on any medications for this. Cont to monitor on tele. (4) Orthostatic hypotension: Status: Acute Assessment and plan: + orthostatic BP noted today but no HR elevation to compensate for the SBP drop. Likely has a degree of autonomic dysfuntion. MIdodrine initiated and titrated to 10mg po TID. Monitor orthostatic BPs. (5) DVT prophylaxis: Status: Acute Assessment and plan: SC enoxaparin (6) Discharge planning issues: Status: Acute Assessment and plan: Full code C/s PT. C/s palliative care Subjective Subjective Patient reports: tolerating a regular diet, nausea and afebrile; denies diarrhea, vomiting or shortness of breath Interval history since last seen: Pt noted to be orthostatic this AM when orthostatic vital signs obtain. Mcintosh dizzy and did feel a spinning sensation at the time. She developed a headache as well. Exam Narrative Exam Narrative: Lying in bed with cold washrag on forehead this AM after feeling dizzy/spinning In the afternoon, lying in bed with daughter and in the room; feeling better, no headache. Const General: cooperative Orientation: alert and oriented x3 Eyes General: appearance normal, both eyes and all related structures Sclera: sclerae normal Resp Effort & Inspection: normal respiratory effort Auscultation: clear to auscultation bilaterally Cardio Rate: regular rate Rhythm: regular rhythm Heart Sounds: S1 normal and S2 normal Neuro General: no focal motor deficits Cranial Nerves: facial strength normal Speech: speech normal Gait: normal gait Psych Appearance: grossly normal Mood: congruent mood Affect: normal affect Objective Last Vital Signs Temp 35.8 C L 03/08/22 11:08 Pulse 61 03/08/22 13:58 Resp 17 08/27/22 11:08 BP 112/70 03/08/22 13:58 Pulse Ox 98 03/08/22 11:08
[2022-03-08] MEDS: Gabapentin 600 MG TAB PO (19:35)
[2022-03-08] MEDS: rOPINIRole 0.5 MG TAB PO (19:36)
[2022-03-08] MEDS: Midodrine 2.5 MG TAB 10 MG PO (19:36)
[2022-03-08] MEDS: Ibuprofen 400 MG TAB PO (21:37)
[2022-03-08] MEDS: Mirtazapine 15 MG TAB PO (21:37)
[2022-03-09] VITALS (11 sets, daily range): BP systolic 75–151; BP diastolic 55–81; PULSE 50–64; RESP 16–17; TEMP 36–36.9; O2SAT 95–97
[2022-03-09] MEDS: Omega-3 Fatty Acids 1000 MG CAP PO (08:46)
[2022-03-09] MEDS: Memantine 5 MG TAB 10 MG PO ×2 (08:46→20:07)
[2022-03-09] MEDS: Midodrine 2.5 MG TAB 10 MG PO ×3 (08:46→20:08)
[2022-03-09] MEDS: Aspirin 81 MG CHEW PO (08:47)
[2022-03-09] MEDS: Multivitamin TAB 1 TAB PO (08:47)
[2022-03-09] MEDS: Escitalopram 10 MG TAB PO (08:47)
[2022-03-09] MEDS: Cholecalciferol (Vitamin D3) 1,000 UNIT TAB 1000 UNITS PO (08:47)
[2022-03-09] MEDS: Cyanocobalamin 500 MCG TAB 1000 MCG PO (08:47)
[2022-03-09] MEDS: Enoxaparin 40 MG/0.4 ML SYR SC (08:47)
--- NOTE | 2022-03-09 08:58 | PT.INNT ---
PT Notes Visit Reasons: Presyncope,Vertigo Pt's bp is still very low and she is symptomatic from the low bp. On hold as per nursing.
[2022-03-09] MEDS: Fexofenadine 180 MG TAB PO (12:00)
--- NOTE | 2022-03-09 14:41 | PHA.REVIEW ---
Pharmacy Admission Review - Admission Clinical Review (Last Reviewed 03/08/22 @ 08:37 by Ramya Boucher NP) Dizziness (Acute) Pre-syncope (Acute) Anxiety with depression (Acute) Palliative care patient (Acute) Discharge planning issues (Acute) DVT prophylaxis (Acute) Memory loss (Acute) Orthostatic hypotension (Acute) hydroxyzine Allergy (Severe, Verified 03/06/22 20:25) Pt states lips and eyes swell up cetirizine [From Zyrtec] Allergy (Mild, Verified 03/06/22 20:25) rivastigmine [From Exelon] Allergy (Mild, Verified 03/06/22 20:25) Nausea and rash sertraline Allergy (Unknown, Verified 03/06/22 20:25) donepezil HCl [From Aricept] Adverse Reaction (Mild, Verified 03/06/22 20:25) Nausea Resuscitation Status Full Code Height 5 ft 7 in Weight 70.4 kg PRE-SYNCOPE, VERTIGO - Comments Comments/Follow Ups: Primary reason for stay: Orthostatic BP's. Midodrine dose has been increased to the maximum daily allowed 10mg po TID. BP's still vary, low when standing.HR 50's. Followed by palliative care/Neurology. Cardiology consult - Renal Dosing Renal Dosing: BUN 17 mg/dL (7-18) 03/07/22 06:07 Creatinine 0.8 mg/dL (0.55-1.02) 03/07/22 06:07 Medications needing adjustments: Reviewed (CrCl~50ml/min) - Anticoagulation Anticoagulation: Hgb 13.7 g/dL (11.2-15.7) 03/07/22 06:07 Hct 39.9 % (36.0-46.0) 03/07/22 06:07 Plt Count 141 10^3/uL (130-400) 03/07/22 06:07 Creatinine 0.8 mg/dL (0.55-1.02) 03/07/22 06:07 DVT Prophylaxis: Reviewed Medications: Enoxaparin - Relevant Labs Sodium 137 mmol/L (136-145) 03/07/22 06:07 Potassium 4.3 mmol/L (3.5-5.1) 03/07/22 06:07 Chloride 104 mmol/L (98-107) 03/07/22 06:07 Magnesium 2.1 mg/dL (1.8-2.4) 03/07/22 06:07 Electrolytes, C-Reactive P, ESR: Reviewed - DM Control DM Control: Glucose 93 mg/dL (74-106) 03/07/22 06:07 Insulin Dosing: N/A - Heart Failure/NJ Heart Failure/NJ: Troponin I < 50 ng/L (<or=60) 03/06/22 21:27 EF%, EZEQUIEL's, B-Blockers, Diuretics: N/A - BP Control BP Control: Blood Pressure [Supine] 151/81 Blood Pressure [Supine] 112/66 Blood Pressure [Standing] 112/69 Blood Pressure [Standing] 90/58 Blood Pressure [Sitting] 132/76 Blood Pressure [Sitting] 110/73 Blood Pressure 100/62 Blood Pressure 75/55 Blood Pressure 112/66 Blood Pressure 111/72 If elevated: Reviewed (See other comments regarding orthstasis) - Qtc Review If Elevated: Reviewed (QTC 432) - Home Meds Home Med List reviewed: Intervened (requested Pt's own Exelon patch...noone able to bring it in, caregiver for her , likely discharge soon. Reviewed home med list, some discrepanices, aware...some of the higher doses of Ropinrole and Mirtazapine may be contributing to her Orthostasis) - Current meds Current Medication Order Review: Intervened (MD keeping some of her sedating med doses lower than her home meds)
--- NOTE | 2022-03-09 15:06 | W.PM.PROGNOT ---
Date of Service Date of service: 03/09/22 Time of Service: 15:06 Assessment and Plan Assessment and plan (1) Anxiety with depression: Status: Acute Assessment and plan: Continue home regimen with mirtazapine at night. (2) Paroxysmal SVT (supraventricular tachycardia): Status: Chronic Assessment and plan: Not on any medications for this. Not noted on monitoring during this admission. Cont to monitor on tele. (3) Orthostatic hypotension: Status: Acute Assessment and plan: + orthostatic BP noted today but no HR elevation to compensate for the SBP drop. Likely has a degree of autonomic dysfuntion. MIdodrine initiated and titrated to 10mg po TID. Still symptomatic. Will d/w cardiology. Pacemaker candidate? (4) DVT prophylaxis: Status: Acute Assessment and plan: SC enoxaparin (5) Discharge planning issues: Status: Acute Assessment and plan: Full code C/s PT. C/s palliative care Subjective Subjective Interval history since last seen: Conts to have orthostatic hypotension with intermittent symptoms when ambulating; dizzinesw, near near syncope. No CP/palpitations. Exam Narrative Exam Narrative: Lying in bed. No current presyncopal symptoms Const General: cooperative and no acute distress Nutritional Appearance: average body habitus Orientation: alert and oriented x3 Eyes General: appearance normal, both eyes and all related structures Sclera: sclerae normal Resp Effort & Inspection: normal respiratory effort Auscultation: clear to auscultation bilaterally Cardio Rate: regular rate Rhythm: regular rhythm Heart Sounds: S1 normal and S2 normal Neuro General: no focal motor deficits Cranial Nerves: facial strength normal Speech: speech normal Gait: normal gait Psych Appearance: grossly normal Mood: congruent mood Affect: normal affect Objective Last Vital Signs Temp 36.0 C L 03/09/22 08:13 Pulse 51 L 03/09/22 11:33 Resp 16 03/09/22 08:13 BP 132/76 03/09/22 11:33 Pulse Ox 96 03/09/22 08:13
[2022-03-09] MEDS: Gabapentin 600 MG TAB PO (20:07)
[2022-03-09] MEDS: rOPINIRole 0.5 MG TAB PO (20:07)
[2022-03-09] MEDS: Mirtazapine 15 MG TAB PO (22:03)
[2022-03-09] MEDS: Ibuprofen 400 MG TAB PO (22:03)
[2022-03-10] VITALS (9 sets, daily range): BP systolic 82–135; BP diastolic 53–75; PULSE 49–64; RESP 17–18; TEMP 36.5–36.7; O2SAT 94–97
[2022-03-10 06:47] LABS: Platelet Count 156 10^3/uL (130-400)
[2022-03-10] MEDS: Enoxaparin 40 MG/0.4 ML SYR SC (07:46)
[2022-03-10] MEDS: Midodrine 2.5 MG TAB 10 MG PO (07:47)
[2022-03-10] MEDS: Memantine 5 MG TAB 10 MG PO ×2 (07:47→19:39)
[2022-03-10] MEDS: Multivitamin TAB 1 TAB PO (07:47)
[2022-03-10] MEDS: Fexofenadine 180 MG TAB PO (07:47)
[2022-03-10] MEDS: Omega-3 Fatty Acids 1000 MG CAP PO (07:47)
[2022-03-10] MEDS: Cyanocobalamin 500 MCG TAB 1000 MCG PO (07:47)
[2022-03-10] MEDS: Escitalopram 10 MG TAB PO (07:49)
[2022-03-10] MEDS: Aspirin 81 MG CHEW PO (07:49)
[2022-03-10] MEDS: Cholecalciferol (Vitamin D3) 1,000 UNIT TAB 1000 UNITS PO (07:49)
[2022-03-10] MEDS: Normal Saline Flush 10 ML SYR IVP (07:50)
[2022-03-10] MEDS: Milk of Magnesia 30 ML CUP PO (09:20)
--- NOTE | 2022-03-10 10:04 | PT.INTREAT ---
Date of service: 03/10/22 Time of Service: 10:04 PT Notes Visit Reasons: Presyncope,Vertigo Inpatient Physical Therapy Treatment Note [facility] Date: 03/10/2022 PRECAUTIONS: Fall. Orthostatic hypotension. Activity as tolerated. SUBJECTIVE: Okay with walking in the hallway today using FWW. Complained of lightheadedness and being spacey during the walk needing a seated rest. OBJECTIVE:? PAIN: Denies Edema in B legs noted. ? BED MOBILITY/TRANSFERS? Sit-stand: Supervision?with FWW ? Stand-sit: Supervision ? GAIT? Assistive Device: FWW? Weight bearing: FWB Assist: SBA ? Distance:? 100' +100'? Deviation: Ivett slowed. Complains of being lightheaded and mildly nauseous, subsided with rest. BP after walking 100 feet, 96/71 mmHg with HR 57 bpm. BP after second walk 5 minutes after seated rest, 107/72 mmHg. Needed extended time to rest and recover. THEREX: Only tolerated seated hip flexion x 10 before requesting to rest due to fatigue ASSESSMENT:? May need to work on self-pacing to reduce onset of fatigue. Need to always rememeber to transition into and out of each position (supine<>sit, sit<>stand) slowly to minimize symptoms from BP changes. DISCHARGE RECOMMENDATIONS: [] Home with no services [] [X] Home with services. Home when medically cleared by hospitalist. Patient will benefit from home health PT services in order to progress mobility level using least restrictive assistive ambulatory device, assess home safety, identify additional equipment needs, and establish a functional maintenance program that will increase ability of patient to remain at home. [] Home with outpatient PT [] [] SNF for continued rehabilitation [] [] [facility] [] [] SNF versus LTC based on ability to participate and progress [] PLAN: Progress mobility level as tolerated. Premedicate to minimize nausea during mobility performance. TREATMENT CODE/TIME: 42169 x 40 minutes beginning at 10:04 AM.
[2022-03-10 10:24] LABS: Lyme Ab w Rflx to Lyme Confirm Negative (Negative)
--- NOTE | 2022-03-10 14:17 | CMPROGNOTE_ITS ---
- If Service Date Differs Date of service: 03/10/22 Time of Service: 14:17 Care Management Progress Note S/O: Hoda continues to require close monitoring on telemetry and is working with PT. Anticipate, discharge in the next 1-2 days with full [facility] services. A: 81 year old female admitted to [facility] on 03/07/22 for dizziness. P: Hoda will likely be discharge home with New [facility] RN,PT,OT,RESEARCH METHODS INSTRUCTOR. She will follow up with her community providers and plan of care. Hoda will either transport via private vehicle with her daughter or via RCT coordinated by JALIL.
--- NOTE | 2022-03-10 14:17 | PDOC.CMPRO ---
- If Service Date Differs Date of service: 03/10/22 Time of Service: 14:17 Care Management Progress Note S/O: Hoda continues to require close monitoring on telemetry and is working with PT. Anticipate, discharge in the next 1-2 days with full [facility] services. A: 81 year old female admitted to [facility] on 03/07/22 for dizziness. P: Hoda will likely be discharge home with New [facility] RN,PT,OT,REVIEWER SALES. She will follow up with her community providers and plan of care. Hoda will either transport via private vehicle with her daughter or via RCT coordinated by JALIL.
[2022-03-10] MEDS: Fludrocortisone 0.1 MG TAB PO (15:00)
--- NOTE | 2022-03-10 15:02 | PT.INTREAT ---
Date of service: 03/10/22 Time of Service: 14:33 PT Notes Visit Reasons: Presyncope,Vertigo Inpatient Physical Therapy Treatment Note [facility] Date: 03/10/2022 PRECAUTIONS: Fall, orthostatic hypotension, dizziness SUBJECTIVE: Hoda states that she is not feeling well, that she is having a hot flash. She reports walking that loop wipes me out. OBJECTIVE: PAIN: No c/o pain BED MOBILITY/TRANSFERS Sit-stand: SBA Stand-sit: SBA GAIT Assistive Device: 4WW Weight bearing: Full Assist: SBA Distance: 100' x2 Deviation: Slow pacing, c/o dizziness, seated rest TOILETING: Patient toileted with SBA for transfers 4WW MECHANICS: Patient was instructed in safe and appropriate use of 4WW with gait training. She demonstrates good understanding and correct use of locks, brakes and seat. ASSESSMENT: Patient appears limited due to fatigue and dizziness with activity. She tolerates gait training, although requires seated rest and reports worsening symptoms. PLAN: Continue with gait training and global strengthening for improved activity tolerance, as symptoms allow. TREATMENT CODE/TIME: 28 minutes; 40261 x2 (14:33)
[2022-03-10 18:50] LABS: Anaplasma phagocytophilum Negative (Negative); B. miyamotoi PCR Negative (Negative); Babesia divergens/MO-1 Negative (Negative); Babesia duncani Negative (Negative); Babesia microti Negative (Negative); Ehrlichia chaffeensis Negative (Negative); Ehrlichia ewingii/canis Negative (Negative); Ehrlichia muris eauclairensis Negative (Negative)
[2022-03-10] MEDS: rOPINIRole 0.5 MG TAB PO (19:39)
[2022-03-10] MEDS: Acetaminophen 325 MG TAB PO (19:39)
[2022-03-10] MEDS: Gabapentin 600 MG TAB PO (19:39)
--- NOTE | 2022-03-10 20:16 | W.PM.PROGNOT ---
Date of Service Date of service: 03/10/22 Time of Service: 20:16 Assessment and Plan Assessment and plan (1) Anxiety with depression: Status: Acute Assessment and plan: Continue home regimen with mirtazapine at night. (2) Paroxysmal SVT (supraventricular tachycardia): Status: Chronic Assessment and plan: Not on any medications for this. Not noted on monitoring during this admission. Cont to monitor on tele. (3) Orthostatic hypotension: Status: Acute Assessment and plan: + orthostatic BP noted today but no HR elevation to compensate for the SBP drop. Likely has a degree of autonomic dysfuntion. MIdodrine initiated and titrated to 10mg po TID; little significant effect. Still symptomatic. D/C midodrine and initiate fludrocortisone 0.1mg daily. Her heart rate does not respond appropriately by increasing the rate when she is orthostatic. (4) DVT prophylaxis: Status: Acute Assessment and plan: SC enoxaparin (5) Discharge planning issues: Status: Acute Assessment and plan: Full code C/s PT. C/s palliative care Subjective Subjective Patient reports: no new complaints and afebrile; denies nausea or vomiting Interval history since last seen: Walked with PT in the hallway and now feels exhausted. Some dizziness with her walk initially but less pronounced than with some of the more symptomatic episodes. Exam Narrative Exam Narrative: Sitting in recliner. Appears fatigued. Const General: cooperative and no acute distress Nutritional Appearance: average body habitus Orientation: alert and oriented x3 Eyes General: appearance normal, both eyes and all related structures Sclera: sclerae normal Resp Effort & Inspection: normal respiratory effort Auscultation: clear to auscultation bilaterally Cardio Rate: regular rate Rhythm: regular rhythm Heart Sounds: S1 normal and S2 normal Neuro General: no focal motor deficits Cranial Nerves: facial strength normal Speech: speech normal Gait: normal gait Psych Appearance: grossly normal Mood: congruent mood Affect: normal affect Objective Last Vital Signs Temp 36.5 C 03/10/22 15:28 Pulse 56 L 03/10/22 15:28 Resp 17 03/10/22 15:28 BP 82/53 L 03/10/22 15:28 Pulse Ox 96 03/10/22 15:28 Laboratory Results - last 24 hr 03/06/22 03/10/22 21:27 06:20 Plt Count 156 A.phagocytophil DNA PCR Negative B. divergens/MO-1 PCR Negative Babesia duncani (PCR) Negative Babesia microti DNA PCR Negative Borrelia (PCR) Negative Lyme Disease Antibody Negative E.chaffeensis DNA (PCR) Negative E.ewingii/canis DNA PCR Negative E. muris-like DNA (PCR) Negative
[2022-03-10] MEDS: Mirtazapine 15 MG TAB PO (23:03)
[2022-03-10] MEDS: Ibuprofen 400 MG TAB PO (23:03)
[2022-03-11] VITALS (9 sets, daily range): BP systolic 85–139; BP diastolic 51–71; PULSE 50–94; RESP 16–18; TEMP 36.4–37; O2SAT 94–98
--- NOTE | 2022-03-11 | DI.US_ITS ---
APPROVED REPORT EXAM: Comprehensive 2D, Doppler, and color-flow Echocardiogram Patient Location: In-Patient Therapy Director: Rupal Manuel RDCS (AE) Indications: Orthostatic hypotension Other Information Study Quality: Adequate Conclusion Normal left ventricular wall thickness and chamber size. Estimated ejection fraction is 60%. Wall m otion is normal Normal right ventricular size and systolic function Both atria are normal in size There is no structural or hemodynamically significant valvular disease Estimated right ventricular systolic pressure is 30 mmHg Wall motion Left Ventricle The left ventricle is normal size. The left ventricular systolic function is normal. The left ventric ular ejection fraction is within the normal range. There is normal left ventricular wall thickness. T here is normal LV segmental wall motion. There is no ventricular septal defect visualized. LVEF is 60 %. Right Ventricle The right ventricle is normal size. The right ventricular systolic function is normal. The RVSP is 29 .9mmHg. Atria The left atrium size is normal. The right atrium size is normal. The interatrial septum is intact wit h no evidence for an atrial septal defect. Aortic Valve The aortic valve is normal in structure. Aortic valve is trileaflet. There is no aortic valvular sten osis. No aortic regurgitation is present. Mitral Valve The mitral valve is normal in structure. No evidence of mitral valve stenosis. Trace mitral regurgita tion. Tricuspid Valve The tricuspid valve is normal in structure. There is no tricuspid valve stenosis. Mild tricuspid regu rgitation. Pulmonic Valve The pulmonary valve is normal in structure. There is no pulmonic valvular stenosis. There is no pulmo rip valvular regurgitation. Great Vessels The aortic root is normal in size. The ascending aorta is normal in size.. Aortic arch is normal in c aliber. IVC is normal in size and collapses >50% with inspiration. Pericardium There is no pericardial effusion. 2D Dimensions IVSD d PLAX 0.80 cm F: 0.6-1.0 LV Vol A2C d MOD 64.8 mL LVPW d PLAX 0.80 cm F: 0.6 - 1.0 LV Vol A4C d MOD 68.2 mL LVID d PLAX 4.69 cm F: 3.8 - 5.2 LA vol/ BSA A2C s A-L 26.0 mL/m2 LVDs 3.15 cm F: 2.2 - 3.5 LA vol/ BSA A4C s A-L 25.8 mL/m2 Ao Root d 2.65 cm F: 2.7 - 3.3 LA Vol/ BSA Biplane s A-L 26.7 mL/m2 RA Area A4C 13.28 cm2 LA Area A4C s MOD 17.29 cm2 RA Vol/ BSA A4C s A-L 17.6 mL/m2 LA Area A2C s MOD 16.81 cm2 Ao Asc Diam d 3.28 cm F: 2.3 - 3.1 LV EF A4C MOD 60.4 % LV EF Teichholz 60.9 % LV EF A2C MOD 59.1 % LVEF (Kemp's) 58.02 % F: 54 - 74 LV EF Biplane MOD 58.0 % LV Volume 52.22 mL F: 46 - 106 SV 39.03 mL LV Volume Index 28.85 mL/m2 F: 29 - 61 SV Index 21.57 mL/m2 LV Vol Biplane MOD 67.3 mL FS 32.50 % M-Mode TAPSE 2.67 cm (M/F) >1.7 LV Diastology MV E' medial 0.054 (>0.07 m/s) E/A Ratio 0.6 LV E/e MED 10.35 (<14) MV E Vmax 0.56 (0.4-1.3 m/s) MV E' lateral 0.073 (>0.1 m/s) MV A Vmax 0.90 (0.4-1.3 m/s) LV E/e LAT 7.60 (<14) MV E/A Ratio 0.61 MV E/E' medial 10.39 MV E/E' lateral 7.62 Aortic Valve LVOT Area 2.89 cm2 AoV Area Vmax 2.42 cm2 LVOT Vmax 1.16 m/s AoV Area/ BSA (Vmax) 1.34 cm2/m2 LVOT Mean Paulie. 0.72 m/s RADHA Mean Paulie. 2.20 cm2 LVOT Peak Grad 5.4 mmHg RADHA Mean Paulie. Index 1.22 cm2/m2 LVOT Mean Grad 2.5 mmHg LVOT VTI 0.277 m LVOT Diam s 1.90 cm AoV Vmax 1.38 m/s Velocity Ratio 0.84 AoV Mean Paulie. 0.94 m/s AoV Peak Grad 7.6 mmHg LVOT SV 80.14 mL AoV Mean Grad 4.0 mmHg AoV VTI 0.309 m AoV Area VTI 2.60 cm2 AoV Area/ BSA (VTI) 1.43 cm/m2 Mitral Valve MV DT 435 (160-240 msec) MV PHT 126 msec MV Area PHT 1.74 cm2 MV VTI 0.274 m MV Area VTI 2.92 (4.0-6.0 cm2) Pulmonary Valve PV Vmax 1.06 (0.5-1.5 m/s) RVOT Peak Gr. 2.49 mmHg PV Peak Grad 4.5 mmHg RVOT Mean Gr. 1.30 mmHg PV Mean Grad 2.4 mmHg RVOT VTI 0.199 m PV VTI 0.242 m RVOT Vmax 0.79 m/s Tricuspid Valve TR Peak Grad 26.8 mmHg TR Vmax 2.59 m/s RA Pressure 3.00 mmHg RVSP (TR) 29.9 mmHg
[2022-03-11] MEDS: hydrOXYzine HCL 10 MG TAB PO (03:55)
[2022-03-11] MEDS: Memantine 5 MG TAB 10 MG PO ×2 (08:39→20:26)
[2022-03-11] MEDS: Cyanocobalamin 500 MCG TAB 1000 MCG PO (08:40)
[2022-03-11] MEDS: Multivitamin TAB 1 TAB PO (08:40)
[2022-03-11] MEDS: Fludrocortisone 0.1 MG TAB PO ×3 (08:40→20:26)
[2022-03-11] MEDS: Cholecalciferol (Vitamin D3) 1,000 UNIT TAB 1000 UNITS PO (08:40)
[2022-03-11] MEDS: Omega-3 Fatty Acids 1000 MG CAP PO (08:40)
[2022-03-11] MEDS: Escitalopram 10 MG TAB PO (08:40)
[2022-03-11] MEDS: Aspirin 81 MG CHEW PO (08:40)
[2022-03-11] MEDS: Enoxaparin 40 MG/0.4 ML SYR SC (08:40)
[2022-03-11] MEDS: Fexofenadine 180 MG TAB PO (08:49)
--- NOTE | 2022-03-11 13:23 | PGE_ITS ---
Date of Service Date of service: 03/11/22 Time of Service: 13:23 Assessment and Plan Assessment and plan (1) Anxiety with depression: Status: Acute Assessment and plan: Continue home regimen with mirtazapine at night and Lexapro during the day (2) Paroxysmal SVT (supraventricular tachycardia): Status: Chronic Assessment and plan: Not on any medications for this. Not noted on monitoring during this admission. Cont to monitor on tele. (3) Orthostatic hypotension: Status: Acute Assessment and plan: Still with orthostatic hypotension this morning. Although improving since initiation of fludrocortisone. Midodrine has been resumed at a low dose 5 mg 3 times daily. Fludrocortisone was increased to 1 mg 3 times daily. (4) DVT prophylaxis: Status: Acute Assessment and plan: SC enoxaparin (5) Discharge planning issues: Status: Acute Assessment and plan: Full code C/s PT. C/s palliative care Subjective Subjective Interval history since last seen: Patient still gets orthostatic lightheadedness. Some of her symptoms she descr ibes sounds more like vertigo although vertigo cannot explain her orthostatic hypotension. She was started on fludrocortisone 0.1 mg daily. I have increased this to 3 times a day. I have resumed her midodrine at a reduced dose of 5 mg 3 times daily. Also asked nursing to apply thigh-high MERLY hose. Exam Narrative Exam Narrative: Elderly white female sitting up in her bed watching TV she is alert and oriented per his place time circumstance. Lungs clear to auscultation Heart is regular rate and rhythm without appreciable murmur rub or gallop Abdomen soft and nontender nondistended Lower extremities with 1+ pitting edema Objective Last Vital Signs Temp 36.6 C 03/11/22 08:26 Pulse 69 03/11/22 09:08 Resp 18 03/11/22 08:26 BP 85/51 L 03/11/22 09:08 Pulse Ox 98 03/11/22 08:26 Laboratory Results - last 24 hr 03/06/22 21:27 A.phagocytophil DNA PCR Negative B. divergens/MO-1 PCR Negative Babesia duncani (PCR) Negative Babesia microti DNA PCR Negative Borrelia (PCR) Negative E.chaffeensis DNA (PCR) Negative E.ewingii/canis DNA PCR Negative E. muris-like DNA (PCR) Negative
[2022-03-11] MEDS: Midodrine 2.5 MG TAB 5 MG PO ×2 (14:00→20:26)
--- NOTE | 2022-03-11 14:28 | CMPROGNOTE_ITS ---
- If Service Date Differs Date of service: 03/11/22 Time of Service: 14:28 Care Management Progress Note S/O: Hoda was lying in bed talking with the Sod when CM met with her. She is alert, oriented and easy to engage in conversation. Hoda is working with PT and her orthostatic BP's are being closely monitored. MD recommends thigh high MERLY stalkings for compression. Nursing aware, item is ordered. CM will continue to follow. A: 81 year old female admitted to [facility] on 03/07/22 for dizziness, orthostatic hypotension P:Hoda will likely be discharge home with New [facility] RN,PT,OT,ENVELOPE FOLDER. She will follow up with her community providers and plan of care. Hoda will either transport via private vehicle with her daughter or via RCT coordinated by CM.
[2022-03-11] MEDS: Normal Saline Flush 10 ML SYR IVP (16:31)
--- NOTE | 2022-03-11 16:50 | PTTR_ITS ---
PT Notes Visit Reasons: Presyncope,Vertigo Inpatient Physical Therapy Treatment Note [facility] Date: 03/10/2022 PRECAUTIONS: Fall.? Orthostatic hypotension.? Activity as tolerated. SUBJECTIVE: Agreeable to morning and afternoon PT sessions. Continues to be limited by complaints of lightheadedness but of lesser intensity today than previous days. Looking forward to what the insurance analyst have to say about her case. OBJECTIVE:? PAIN: Denies TEDS to B legs. ? BED MOBILITY/TRANSFERS? Sit-stand: Supervision?with FWW ? Stand-sit: Supervision ? GAIT? Assistive Device: FWW? Weight bearing: FWB Assist: SBA ? Distance:? 150 feet + 150 feet ? Deviation: Ivett slowed. Complains of being lightheaded and mildly nauseous,? subsided with rest.? BP after walking 150 feet, 127/71 mmHg mmHg with HR 62 bpm.? Standing up from sitting on wheelchair BP 97/61 mmHg with HR 63 bpm. BP lying back in bed to rest after second walk 143/78 mmHg with HR 60 bpm. Exhausted after the walk. THEREX: In the afternoon tolerated: Seated hip flexion x 20 LAQs x 20 Ankle DF/PF x 20 Sit to squat x 10 using b hands for support with report of fatigue and lightheadedness that subsided with rest ASSESSMENT:? May need to work on self-pacing to reduce onset of fatigue.? Need to always remember to transition into and out of each position (supine<>sit,? sit<>stand) slowly to minimize symptoms from BP changes.? DISCHARGE RECOMMENDATIONS: [] ? Home with no services [] [X] ? Home with services.? Home when medically cleared by hospitalist.? Patient will benefit from home health PT services in order to progress mobility level using least restrictive assistive ambulatory device, assess home safety, identify additional equipment needs, and establish a functional maintenance program that will increase ability of patient to remain at home. [] ? Home with outpatient PT [] [] ? SNF for continued rehabilitation [] [] ? Merchandise Support Associate Care [] [] ? SNF versus LTC based on ability to participate and progress [] PLAN: Progress mobility level as tolerated.? Premedicate to minimize nausea during mobility performance. TREATMENT CODE/TIME: Session 1-- 24775 x 20 minutes, [id number] x 16 minutes beginning at 10:56 AM. Session 2--[id number] x 25 minutes beginning at 16:50 PM.
--- NOTE | 2022-03-11 16:57 | CHAPLAIN ---
Hoda was resting in bed when I visited. She said she feels tired, her blood pressure has been low, and she's had dizzy spells. The medical team is trying some different drugs to help her with all of that. Hoda said she is worried about going home, where she cares for her who also has low energy and can't do much for himself. He is staying with their daughter right now. Hoda said she will have Home Health and Meals on Wheels coming in when she gets home and she's appreciative of that. She is also a member of the [employer] and [employer] members will be providing meals as well.
[2022-03-11] MEDS: rOPINIRole 0.5 MG TAB PO (20:26)
[2022-03-11] MEDS: Gabapentin 600 MG TAB PO (20:26)
[2022-03-11] MEDS: Ibuprofen 400 MG TAB PO (22:37)
[2022-03-11] MEDS: Mirtazapine 15 MG TAB PO (22:37)
[2022-03-12] VITALS (11 sets, daily range): BP systolic 62–156; BP diastolic 50–78; PULSE 47–58; RESP 16–18; TEMP 36–37; O2SAT 94–97
[2022-03-12] MEDS: Normal Saline Flush 10 ML SYR IVP (08:13)
[2022-03-12] MEDS: Cosyntropin 0.25 MG VIAL IVP (08:13)
[2022-03-12] MEDS: Aspirin 81 MG CHEW PO (08:28)
[2022-03-12] MEDS: Midodrine 2.5 MG TAB 5 MG PO (08:28)
[2022-03-12] MEDS: Cyanocobalamin 500 MCG TAB 1000 MCG PO (08:28)
[2022-03-12] MEDS: Escitalopram 10 MG TAB PO (08:28)
[2022-03-12] MEDS: Multivitamin TAB 1 TAB PO (08:28)
[2022-03-12] MEDS: Cholecalciferol (Vitamin D3) 1,000 UNIT TAB 1000 UNITS PO (08:28)
[2022-03-12] MEDS: Omega-3 Fatty Acids 1000 MG CAP PO (08:29)
[2022-03-12] MEDS: Fexofenadine 180 MG TAB PO (08:29)
[2022-03-12] MEDS: Enoxaparin 40 MG/0.4 ML SYR SC (08:29)
[2022-03-12] MEDS: Fludrocortisone 0.1 MG TAB PO ×2 (08:29→19:37)
[2022-03-12] MEDS: Memantine 5 MG TAB 10 MG PO ×2 (08:29→19:37)
--- NOTE | 2022-03-12 09:26 | CMPROGNOTE_ITS ---
- If Service Date Differs Date of service: 03/12/22 Time of Service: 09:26 Care Management Progress Note S/O: Hoda was sitting up in her chair when CM met with her. She is alert, oriented and easy to engage in conversation. She continues to have dizziness when standing. She is working with PT and her BP's are being closely monitored. CM noticed that Hoda had her home supply of Exelon patches in her room. Per pt, her daughter brought them in last night. CM explained to Hoda that home medications need to be checked through the pharmacy and ordered by the MD. CM gave the box of patches to the RN Fish Pitcher with the patients permission. Per Hoda, the doctor doesn't really want her to use the patch (at this time) because it could be affecting her BP. Per Hoda, the patch works really good for her memory issues and she is hoping the doctor will allow her to wear at least every other day. Per patient she is not wearing one, nursing aware and will double check with patient. In addition, MD recommends thigh high MERLY stalkings for compression. Per nursing, they are on order. In the meantime, pt is wearing thigh high corrie wraps. CM will continue to follow. At this time, Hoda does not want SNF for STR on discharge, but will think about it if she continues to have dizziness. A: 81 year old female admitted to [facility] on 03/07/22 for dizziness, orthostatic hypotension P:Hoda will likely be discharge home with New [facility] RN,PT,OT,SCHOOL FUNDRAISING DIRECTOR. She will follow up with her community providers and plan of care. Hoda will either transport via private vehicle with her daughter or via RCT coordinated by JALIL.
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
[2022-03-12] MEDS: Midodrine 2.5 MG TAB 10 MG PO ×2 (13:51→19:37)
--- NOTE | 2022-03-12 14:34 | PT.INTREAT ---
PT Notes Visit Reasons: Presyncope,Vertigo Inpatient Physical Therapy Treatment Note [facility] Date: 03/12/22 SUBJECTIVE: Hoda states that she is doing better as long as she sits. She reports increase in dizziness and fuzzy head when standing. OBJECTIVE: [] BED MOBILITY/TRANSFERS Sit-stand:SBA Stand-sit:SBA GAIT Assistive Device: 4WW Weight bearing: full Assist: CGA Distance: stood in place 2x 30 sec in am, and pm VITALS: sitting and standing BP taken. 101/62 sitting, 56/35 standing (machine) in am 120/62 sitting, 102/58 standing in pm.(manually) THEREX: performed a global LE strengthening routine including LAQ x 15, hip flex x15, ab/add x15. Standing HR x 10, sit to stand x4. Exercises were performed in pm session only. ASSESSMENT: tolerated ex well. No c/o increased dizziness. Pt talkative, alert however once we stood she c/o increased dizziness, fuzzy head and not feeling well. Held on ambulation. I noted her to be less talkative and fatigued. PLAN: will continue to work on her strength and functional mobility to tolerance per PT POC. TREATMENT CODE/TIME: 20 min. [id number]
--- NOTE | 2022-03-12 16:40 | CHAPLAIN ---
Hoda was up in the recliner when I visited. Her daughter came in while I was there. Hoda said she is worried about stopping her Exelon patches as the hospitalist has suggested because she believes they keep her mind clear and she hasn't had any episodes since she started using the patches. She explained that the hospitalist feels the patches may be causing her low blood pressure. The hospitalist would also like to discontinue Hoda's restless leg medication for the same reason, she said, and this worries her as well. Hoda's daughter arrived while I was there. Hoda said she does not want to go to a rehab because she believes the care is not good. Her daughter tried to explain the different levels of care between rehabs and nursing homes. Hoda said she has also been stressed about providing care for her the past year, since he began having dizzy spells. She gave me permission to contact her hoahaoism, the [facility], to see if their pastoral visitation person, Hector, could visit Hoda. I left a message for Pastor Glover.
[2022-03-12] MEDS: Gabapentin 600 MG TAB PO (19:37)
[2022-03-12] MEDS: Mirtazapine 15 MG TAB PO (21:25)
[2022-03-12] MEDS: Melatonin 3 MG TAB 9 MG PO (21:25)
[2022-03-12] MEDS: hydrOXYzine HCL 10 MG TAB PO (22:38)
[2022-03-13] VITALS (9 sets, daily range): BP systolic 100–168; BP diastolic 51–81; PULSE 47–60; RESP 16–19; TEMP 36–37.1; O2SAT 94–98
[2022-03-13 06:21] LABS: Platelet Count 146 10^3/uL (130-400)
[2022-03-13] MEDS: Enoxaparin 40 MG/0.4 ML SYR SC (08:14)
[2022-03-13] MEDS: Cyanocobalamin 500 MCG TAB 1000 MCG PO (08:15)
[2022-03-13] MEDS: Omega-3 Fatty Acids 1000 MG CAP PO (08:15)
[2022-03-13] MEDS: Midodrine 2.5 MG TAB 10 MG PO ×3 (08:15→21:30)
[2022-03-13] MEDS: Fexofenadine 180 MG TAB PO (08:15)
[2022-03-13] MEDS: Cholecalciferol (Vitamin D3) 1,000 UNIT TAB 1000 UNITS PO (08:15)
[2022-03-13] MEDS: Escitalopram 10 MG TAB PO (08:15)
[2022-03-13] MEDS: Aspirin 81 MG CHEW PO (08:15)
[2022-03-13] MEDS: Fludrocortisone 0.1 MG TAB PO ×2 (08:16→21:29)
[2022-03-13] MEDS: Multivitamin TAB 1 TAB PO (08:16)
[2022-03-13] MEDS: Memantine 5 MG TAB 10 MG PO ×2 (08:16→21:29)
--- NOTE | 2022-03-13 08:53 | CMPROGNOTE_ITS ---
- If Service Date Differs Date of service: 03/13/22 Time of Service: 08:53 Care Management Progress Note S/O: Hoda is working with PT and her BP's are being closely monitored. CM had a long discussion with pt and her daughter about SNF for STR when medically ready prior to going home. Hoda is agreeable and would like the referral to be sent to [facility]. Hoda did not use a walker before her admission, and she would like to get closer to her baseline mobility before ret urning home. A: 81 year old female admitted to [facility] on 03/07/22 for dizziness, orthostatic hypotension P: Hoda will likely be discharged to SNF for STR prior to returning home. [facility] pending at [facility]. She will follow up with her community providers and plan of care as prescribed. Transportation will be dependent on disposition.
--- NOTE | 2022-03-13 10:54 | INPN_ITS ---
Date of service: 03/13/22 Time of Service: 10:54 PT Notes Visit Reasons: Presyncope,Vertigo Physical Therapy Inpatient Progress Note Date: 03/13/2022 Dates of Service: 03/07/2022 through 03/13/2022 Referring Doctor:Janae Bowling? PT Orders: PT CONSULT: Limited ability Precautions: Fall. Standard. Activity as tolerated. Patient Profile/Admitting Diagnosis:? Patient is an 81-year-old female patient who presented to the ED on 03/06/2022 with report of dizziness and feeling of passing out.? Patient is diagnosed with dizziness, anxiety with depression, and othostatic hypotension. PMHX: All Active Problems?(Updated 03/07/22 @ 06:15 by Judith Bowling MD) Dizziness (Acute) Pre-syncope (Acute) Lack of motivation (Acute) Impacted cerumen, bilateral (Acute) Alzheimer's dementia (Acute) very mild Anxiety with depression (Acute) Health care proxy on file (Chronic) Nahomi Breaux, daughter SHAR (Physician Orders for Life-Sustaining Treatment) (Chronic) signed 01/22/21 FULL CODE Insomnia (Acute) MCI (mild cognitive impairment) (Acute) Paroxysmal SVT (supraventricular tachycardia) (Chronic) Goals of care, counseling/discussion (Acute) Palliative care patient (Acute) Anxiety about health (Acute) Dyspnea (Acute) Urticaria, chronic (Chronic) Discharge planning issues (Acute) DVT prophylaxis (Acute) Restless leg syndrome (Acute) Normal colonoscopy (Acute) Mild chronic gastritis (Chronic) Idiopathic peripheral neuropathy (Acute) Idiopathic peripheral autonomic neuropathy (Acute) Memory loss (Acute) Abrasion of face (Acute) Facial contusion (Acute) 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 (Acute) Conductive hearing loss, external ear (Acute) Sensorineural hearing loss of both ears (Acute) Dysphagia (Acute) Dyspnea on exertion (Acute) Orthostatic hypotension (Acute) Medical History? Allergic rhinitis Bilateral leg pain Bilateral leg weakness Cold feet Dementia mild Dizziness Fatigue Frequent PVCs Gastritis Hearing loss Hives Hx of bronchitis Hx of migraines Iliotibial band friction syndrome of both knees Ingrown toenail Insect bite Knee joint pain Lung nodule Migraine Myalgia Nail abnormality Obstructive sleep apnea Onychomycosis Osteoporosis Pain in left shoulder Palpitations Pelvic floor instability Peripheral neuropathy Raynauds syndrome Tubular adenoma Surgical History? H/O foot surgery r foot surgerly H/O knee surgery L knee surgery-patella History of colonoscopy Hx of tonsillectomy Social History/Home Situation: Lives with in a private home with 4 steps to enter. ? Independent with all aspects of ADLs prior to admission. Equipment Owned/DME: None Subjective: Continues to be symptomatic with positional changes but now with less severity compared to last week. Agreeable to going for a short-term rehab prior to D/C to home. Objective: General Observation: Seated on bedside recliner.? Telemetry monitoring in place.? TEDS in B legs. Mental Status: Alert and oriented as to person, place, time, and purpose. Able to pay attention, focus, and respond appropriately. Pain: Denies Vital Signs: 97/61 mmHg after walking 150 feet with HR of 62 bpm ROM: Right Upper Extremity: ? Shoulder Flexion WFL. Shoulder abduction WFL. Elbow flexion WFL. Wrist flexion WFL. Functional opening and closing of hand WFL. Left Upper Extremity:? Shoulder Flexion WFL. Shoulder abduction WFL. Elbow flexion WFL. Wrist flexion WFL. Functional opening and closing of hand WFL. Right Lower Extremity: Hip flexion WFL. Hip abduction WFL. Knee flexion WFL. Ankle dorsiflexion WFL. Ankle plantarflexion WFL. Left Lower Extremity: Hip flexion WFL. Hip abduction WFL. Knee flexion WFL. Ankle dorsiflexion WFL. Ankle plantarflexion WFL. Strength: Right Upper Extremity: Shoulder flexors 4-/5. Shoulder abductors 4-/5. Elbow flexors 4-/5. Elbow extensors 4-/5. Senior Advocate strong. Left Upper Extremity:? Shoulder flexors 4-/5. Shoulder abductors 4-/5. Elbow flexors 4-/5. Elbow extensors 4-/5. Senior Advocate strong. Right Lower Extremity: Hip flexors 4-/5. Hip abductors 4-/5. Knee flexors 4-/5. Knee extensors 4-/5. Ankle dorsiflexors 4-/5. Ankle plantarflexors 4-/5. Left Lower Extremity: Hip flexors 4-/5. Hip abductors 4-/5. Knee flexors 4-/5. Knee extensors 4-/5. Ankle dorsiflexors 4-/5. Ankle plantarflexors 4-/5. BED MOBILITY/TRANSFERS? Sit-stand: Supervision?with 4WW ? Stand-sit: Supervision ? GAIT? Assistive Device: FWW? Weight bearing: FWB Assist: SBA ? Distance:? 150 feet + 150 feet ? Deviation: Ivett slowed. Complains of being lightheaded and mildly nauseous,? subsided with rest.? 97/51 mmHg and HR to 61 bpm after the first 150 feet using the FWW. THEREX: Seated hip flexion x 20 LAQs x 20 Ankle DF/PF x 20 Sit to squat x 10 using b hands for support with report of fatigue and lightheadedness that subsided with rest Balance: Static Sitting: Good Dynamic Sitting: Good Static Standing: Fair Dynamic Standing: Fair Special Tests: Mobility Limitations Standardized Measure [facility]-PAC 6 clicks Basic Mobility Inpatient Short Form: Raw Score: 18? CMS Score: 47% deficit? ? ? Informed Consent/Education:? Patient was instructed in purpose of PT consult and plan of care. Agreeable to proceed with established PT POC to achieve personal goals. Assessment: Patient continues to present with clinical signs and symptoms consistent with current/admitting diagnoses that have resulted to mobility limitations, gait instability, generalized weakness, and overall ADL decline as demonstrated by the following impairment level findings: 1.? Decreased strength to B UE/LE major muscle groups 2.? Impaired sitting/standing balance 3.? Impaired activity tolerance 4.? Continued report of dizziness 5. Orthostatic hypotension Impairments are contributing to the following functional limitations: 1.? Difficulty with ambulation without assistive device due to drop in BP with upright positioning 3.? Increased completion time for mobility ADL performance 4.? Increased risk for falls 5.? Difficulty with managing steps alone safely Patient is assessed as a 27036 moderate complexity based on the following: History: 81-year-old female with past medical history as indicated above Examination: Demonstrable impairment in strength, balance, and mobility level with underlying impairments and functional limitations as exhibited above as well as deficit score of 69% utilizing the [facility] Mobility Inpatient Short Form Presentation: Evolving Decision Makin moderate complexity Goals: Goals X1 week 1. Supine-Sit independent NOT MET 2. Sit-Supine independent NOT MET 3. Sit-Stand independent NOT MET 4. Stand-Sit independent with FWW NOT MET 5. Bed-Chair independent with FWW NOT MET 6. Chair-Bed independent with FWW NOT MET 7. Independent gait on level surface with use of FWW for at least 300 feet without report of pain nor dyspnea NOT MET 8. Independent stair negotiation while holding onto B rails for at least 4 steps without report of pain nor dyspnea NOT MET 9. Independent with home exercise program NOT MET 10. Good static and dynamic standing balance/tolerance NOT MET DISCHARGE RECOMMENDATIONS: [] ? Home with no services [] [] ? Home with services [] [] ? Home with outpatient PT [] [X] ? SNF for continued short-term rehabilitation. Patient will benefit from fpc facility placement for continued skilled physical therapy services in order to progress mobility level, strength, and balance in preparation for a safe discharge to home. [] ? [facility] [employer] [facility] [] [] ? SNF versus LTC based on ability to participate and progress [] TREATMENT CODE/TIME: 22116 x 15 minutes, 35486 x 10 minutes beginning at 10:54 AM. Thank you for the opportunity to participate in the care of this patient. Cherry Franco PT, DPT, CLT [facility] [place], [place]
[2022-03-13] MEDS: Acetaminophen 325 MG TAB PO ×2 (13:18→22:17)
--- NOTE | 2022-03-13 17:32 | PGE_ITS ---
Date of Service Date of service: 03/13/22 Time of Service: 17:32 Assessment and Plan Assessment and plan (1) Orthostatic hypotension: Status: Acute Assessment and plan: No longer symptomatic. She is tolerating resumption of midodrine along with the fludrocortisone although she does have some peripheral edema. She is off her ropinirole and hopefully will not have an exacerbation of her restless leg syndrome. Did tell her we would increase her gabapentin to 900 mg in the evening to help with the RLS. Rhythm remains sinus bradycardia but no significant AV block or significant pauses. I think it safe to resume her rivastigmine since she felt this was an important treatment for her dementia and it did improve her memory. (2) Sinus bradycardia: Status: Acute Assessment and plan: see discussion above (3) Anxiety with depression: Status: Acute Assessment and plan: Continue home regimen with mirtazapine at night and Lexapro during the day (4) MCI (mild cognitive impairment): Status: Acute Assessment and plan: Resume her rivastigmine at 4.6 mg transdermal patch q48h (5) Restless leg syndrome: Status: Acute Assessment and plan: DC ropinirole continue gabapentin at increased dose of 900 mg each evening.. (6) DVT prophylaxis: Status: Acute Assessment and plan: SC enoxaparin (7) Discharge planning issues: Status: Acute Assessment and plan: Full code Anticipate discharge to a SNF in the next 24 to 48 hours Subjective Subjective Interval history since last seen: Patient is feeling better today no severe dizzy spells. She tolerated physical therapy with no significant orthostatic hypotension. She still remains bradycardic despite being off her rivastigmine patch. She is requesting to go back on her rivastigmine patch at least every other day as she feels that it helps with her dementia. As she has been off the rivastigmine for nearly a week now with no significant improvement of bradycardia I think it would be safe to resume this. I reviewed her physical therapy consultation and the patient would benefit from inpatient rehabilitation. Case management is looking into placing referrals. Patient is currently interested in going to [facility]. I anticipate discharge in the next day presuming that SNF beds available. Exam Narrative Exam Narrative: Alert oriented person place time circumstance Lungs are clear Heart is regular but bradycardic with no murmur rub Abdomen soft and nontender Legs with 1+ edema Review of telemetry shows her heart rate varied between 46-61 with no significant pauses. Objective Last Vital Signs Temp 37.0 C 03/13/22 16:03 Pulse 50 L 03/13/22 16:03 Resp 19 03/13/22 16:03 BP 134/69 03/13/22 16:03 Pulse Ox 95 03/13/22 16:03 Laboratory Results - last 24 hr 03/12/22 03/12/22 03/13/22 08:03 09:25 06:00 Plt Count 146 Cortisol 24 Cortisol 60 Minute 15
[2022-03-13] MEDS: Ibuprofen 400 MG TAB PO (21:28)
[2022-03-13] MEDS: Melatonin 3 MG TAB 9 MG PO (21:29)
[2022-03-13] MEDS: Mirtazapine 15 MG TAB PO (21:29)
[2022-03-13] MEDS: Gabapentin 300 MG CAP 900 MG PO (21:30)
[2022-03-13] MEDS: Normal Saline Flush 10 ML SYR IVP (21:31)
[2022-03-13] MEDS: Docusate Sodium 100 MG CAP PO (22:19)
[2022-03-14 02:54] VITALS: BP 118/69; PULSE 48; RESP 12; TEMP 36; O2SAT 96
[2022-03-14 07:00] VITALS: PULSE 53
[2022-03-14 08:15] VITALS: BP 115/70; PULSE 53; RESP 16; TEMP 36.1; O2SAT 98
--- NOTE | 2022-03-14 09:08 | CMPROGNOTE_ITS ---
- If Service Date Differs Date of service: 03/14/22 Time of Service: 09:08 Care Management Progress Note S/O: Hoda is accepted to [facility] on Thursday. She will remain at [facility] until Thursday and transition to [facility] today. A: 81 year old female admitted to [facility] on 03/07/22 for dizziness, orthostatic hypotension P: Hoda will likely be discharged to SNF for STR prior to returning home. SNF referral pending at [facility]. She will follow up with her community providers and plan of care as prescribed. Transportation will be dependent on disposition.
[2022-03-14] MEDS: Enoxaparin 40 MG/0.4 ML SYR SC (09:17)
[2022-03-14] MEDS: Midodrine 2.5 MG TAB 10 MG PO ×2 (09:18→13:58)
[2022-03-14] MEDS: Multivitamin TAB 1 TAB PO (09:18)
[2022-03-14] MEDS: Fexofenadine 180 MG TAB PO (09:18)
[2022-03-14] MEDS: Memantine 5 MG TAB 10 MG PO (09:19)
[2022-03-14] MEDS: Omega-3 Fatty Acids 1000 MG CAP PO (09:19)
[2022-03-14] MEDS: Cholecalciferol (Vitamin D3) 1,000 UNIT TAB 1000 UNITS PO (09:19)
[2022-03-14] MEDS: Aspirin 81 MG CHEW PO (09:19)
[2022-03-14] MEDS: Escitalopram 10 MG TAB PO (09:19)
[2022-03-14] MEDS: Fludrocortisone 0.1 MG TAB PO (09:19)
[2022-03-14] MEDS: Cyanocobalamin 500 MCG TAB 1000 MCG PO (09:19)
[2022-03-14 11:21] VITALS: BP 133/73; PULSE 47; RESP 16; TEMP 36.4; O2SAT 99
--- NOTE | 2022-03-14 13:48 | CHAPLAIN ---
Hoda said the plan is for her to be discharged to [facility] on Thursday (03/18) and be there for a week or two before going home. She said she had another dizzy spell this morning and that it takes her a while to recover from those. Hoda said she'll be getting her patches every other day now, and she happy about that. She believes the patches have helped her from having memory problems. Yesterday Hoda was visited by Hector, who is the person from [facility] that visits jewish members in the hospital. Hoda's and daughter were also visiting when Hector arrived. Hoda has been providing care for her , who has dizzy spells himself, and he is staying with their daughter while Hoda is here.
[2022-03-14 13:57] VITALS: BP 131/76; PULSE 54; RESP 18; TEMP 36.6; O2SAT 97
--- NOTE | 2022-03-14 14:36 | PT.INTREAT ---
PT Notes Visit Reasons: Presyncope,Vertigo Inpatient Physical Therapy Treatment Note [facility] Date: 03/14/22 SUBJECTIVE: Hoda states that she is feeling a little better today. Reports compliancy with her HEP in chair. Still getting lightheaded occasionally when standing. OBJECTIVE: [] BED MOBILITY/TRANSFERS Sit-stand: CGA Stand-sit: CGA GAIT Assistive Device:4WW Weight bearing: full Assist: CGA Distance: stood in place this am, approx 100' in pm Vitals: BP dropped to 80/50 in am which was taken as she was symptomatic. I did not take BP in pm as she did not demonstrate any sx. THEREX: global strengthening while seated in recliner for both U/LE. AP, LAQ, hip flex, ab/add. SLR and rows, OH press, horiz. abd. performing 10-20 reps each. Sit to stand x 2 in am and 4 in pm ASSESSMENT: tolerated both sessions well despite c/o lightheadedness in am. Mildly symptomatic with ambulation but it seemed to have got better with time. PLAN: continue progressing her strength, endurance while improving functional mobility. TREATMENT CODE/TIME: 43 min ([id number], [id number])
--- NOTE | 2022-03-14 14:49 | DSE_ITS ---
Date of service: 03/14/22 Time of Service: 14:49 DS: Diagnosis Discharge Diagnosis (1) Orthostatic hypotension: Status: Chronic Asessment and Plan: improved. cont. fludrocortisone 0.1 mg bid, midodrine 10 mg tid; dc ropinirole, cont. leg EZEQUIEL wraps pending obtaining thigh high support stockings (she needs measured for real compression stockings such as panty hose style Jobst or Juzzo 20 to 30 mm compression stockings. (2) Sinus bradycardia: Status: Acute Asessment and Plan: no evidence of high grade AV block. I suspect that she has SSS however she has had no significant pauses even though she has had HR in the mid to high 30's. She may have some contribution of her bradycardia from her rivastigmine patch however she says she can not be without this patch as she feels that this is the only medicine that helped her memory. (3) Anxiety with depression: Status: Acute Asessment and Plan: continue mirtazapine. (4) MCI (mild cognitive impairment): Status: Acute Asessment and Plan: continue her Namenda and resume her rivastigmine patch (5) Restless leg syndrome: Status: Acute Asessment and Plan: Gabapentin increased to 900 mg po qpm. ropinirole stopped d/t orthostasis (6) DVT prophylaxis: Status: Acute Asessment and Plan: cont. lovenox while on swing bed status (7) Discharge planning issues: Status: Acute Asessment and Plan: patient will go into swing bed level 1 pending transfer to [facility] on ThursdayMar 18 (they could not accept her today and they will not take her over the weekend). Discharge Plan Disposition Patient Disposition: [facility] SWING BED LEVEL 1 Condition: Stable Discharge Details Reason For Visit: Presyncope,Vertigo Admit Date/Time: 03/10/22 13:11 Admit Provider: Judith Bowling Attending Provider: Judith Bowling Primary Care Provider: Shawna Couch V Hospital Course Hospital Course: Ms Peoples is an 81 year old female with PMHx of h/o dizziness,? SVT,? orthostatic hypotension, early Alzheimer's dementia, anxiety, who presented to [facility] ED with her daughter complaining of dizziness and feeling like she will pass out x 3 days. She specifically describes feeling off balance. She says that she has had to get PT for issues with balance in the past. Additionally, the patient describes feeling spacy and tired. Normally, Hoda gets dizzy when she bends down. However, in the last 3 days she had two episodes of dizziness (one when she had stopped to get an ice cream and once when she was brushing her hair) when bending down actually helped. Denies palpitations, chest pain, shortness of breath, nausea. Did feel a little sweaty.? Also, she stopped using her CPAP about a month ago because she was sleeping well. Her ER workup, including bloodwork, UA, CT/CTA head and chest, and CXR was essentially negative. EKG did not show acute ischemia, troponins were negative. The patient was symptomatic in the ED without evidence of arrhythmias on telemetry. She was not orthostatic in the ED. There is a question as to whether the patient has vertigo. Observation on hospitalist service was requested. Labs were unremarkable. Over the next couple days the patient would experience significant orthostatic hypotension w/ SBP in the 70's and even as low as 62 w/ near syncope. She was put on midodrine 5 mg tid which was titrated to 10 mg tid and fludrocortisone 0.1 mg daily which was increased to bid. She had compresson stockings put on however only calf length. Thigh length was ordered but not available so she had EZEQUIEL wraps applied to her legs up to her thighs while out of bed. Real compression stockings such as Juzzo or Jobst in a panty hose style w/ compression ratings of 20 to 30 mm is what she needs. Her ropinirole was stopped as there is significant association of orthostasis w/ this medication. Salt was encouraged in her diet. She was coached on how to gradually change her position from lying to sitting to standing. P.T. was consulted and worked w/ her. She was tolerating walking w/ a walker. P.T. recommended referral to a SNF. She was referred to [facility] and was accepted but they could not take her over the weekend until Thursday03/18/22. Her rivastigmine was held for couple of days to see if this would make any difference in her sinus bradycardia. It did not seem to make any difference. Telemetry monitoring was applied the entire time she was hospitalized acutely and she had no tachyarrhythmias but had sinus bradycardia to sinus rhythm w/ rates as low as 35 but generally remained in the high 40's to upper 50's. She had no high grade block or prolonged pauses. Cardiology consult was requested but never obtained. Patient will be set up for outpatient cardiology referral and an outpatient 30 day cardiac event recorder. Her rivastigmine was resumed at her request for tim dementia. Home Meds and New Rx's Prescriptions: Continued mirtazapine 30 mg tablet 15 mg PO DAILY memantine 10 mg tablet 10 mg PO BID Qty: 180 3RF ropinirole 0.5 mg tablet 0.5 mg PO DAILY escitalopram oxalate 10 mg tablet 10 mg PO DAILY Qty: 30 1RF Gas-X 62.5 mg strip 1 strip PO DIRECTED PRN rivastigmine [Exelon Patch] 4.6 mg/24 hr patch 24 hour 4.6 mg TD DAILY gabapentin 300 mg capsule 600 mg PO QHS hawthorn 500 mg capsule 1 mg PO DAILY cyanocobalamin (vitamin B-12) 1,000 mcg capsule 1,000 mcg PO DAILY clobetasol 0.05 % cream 1 applic topical BID cholecalciferol (vitamin D3) 25 mcg (1,000 unit) capsule 25 mcg PO DAILY estradiol [Estrace] 0.01 % (0.1 mg/gram) cream 1 g vaginal .1-3 times a week diclofenac sodium [Voltaren] 1 % gel 2 g topical BID PRN Rx Instructions: apply to single elbow, wrist or hand; for hand includes palm/fingers/back of hand aspirin [Aspirin Low-Strength] 81 MG tablet,chewable 81 mg PO DAILY Centrum Silver 1 EACH tablet 1 tab PO DAILY Fish Oil 1 EACH capsule 1 cap PO DAILY Discharge Instructions Instructions: Mirtazapine (By mouth), Vertigo (DC) Stand Alone Forms: Nursing Discharge Form Referrals: hSawna Couch MD [Primary Care Provider] - 03/11/22 2:30 pm Activity:: Activity as Tolerated Equipment/Supplies:: No Equipment Needed Diet:: resume home diet Discharge Orders Discharge Orders: Discharge Order (Routine); Ordered 03/14/22 Ordered By: Mitchell Cobb Discharge Data Discharge Date/Time-TO BE ENTERED AT DEPARTURE: 03/14/22 16:04 DS: Summary Time Spent with Patient providing and/or coordinating discharge services: Less than 30 minutes Status at Discharge Functional status at discharge: uses cane/walker Overall status at discharge: patient is progressing back to baseline Mental Status: mental status grossly normal Speech and Movement: speech and movement normal Mood: congruent mood Affect: normal affect Exam Narrative Exam Narrative: Hoda is sitting up in her chair. She did not have too bad of a day. No serious orthostatic episodes. Heart: bradycardic but regular, no murmur Lungs: some basilar rales; no rhonchi or wheezing Abdomen: soft, nontender, nondistended legs: 1+ pitting edema Neurologic exam grossly normal Psych Mental Status: mental status grossly normal Speech and Movement: speech and movement normal Mood: congruent mood Affect: normal affect DS: Data Vitals/I&O Vitals and I&O: Vital Signs Temperature 36.6 C 03/14/22 13:57 Temperature Source Tympanic 03/14/22 13:57 Pulse 54 L 03/14/22 13:57 Pulse Rhythm Regular 03/14/22 08:45 Pulse 59 L 03/07/22 01:10 Respiratory Rate 18 03/14/22 13:57 Respiratory Effort Non-Labored 03/14/22 08:45 Respiratory Depth Normal 03/14/22 08:45 Respiratory Pattern Normal 03/14/22 08:45 Blood Pressure 131/76 03/14/22 13:57 Blood Pressure Mean 85 03/07/22 01:00 Blood Pressure Position Supine 03/06/22 20:22 Pulse Oximetry 97 03/14/22 13:57 Oxygen Delivery Method Room Air 03/14/22 13:57 Oxygen Flow Rate 0 03/14/22 13:57 Pain Level 0 03/14/22 11:21 Comment 03/13/22 22:34 Intake & Output 03/13/22 03/14/22 03/14/22 23:59 11:59 23:59 Intake Total 400 / 600 200 / 600 Output Total 200 / 1000 500 / 850 350 / 850 Balance -190 / -590 -100 / -250 -150 / -250 Weight 71 kg Intake: IV Oral 400 / 600 200 / 600 Output: Urine 200 / 1000 500 / 850 350 / 850 Other: Urine Color Yellow Yellow Yellow Urine Appearance Cloudy Clear Clear Urine Odor Normal None Comment voided in toilet Could not measure void Stool Size Large Stool Characteristics Hard Voiding Methods Toilet Toilet Toilet PFSH All Active Problems (Updated 03/14/22 @ 23:31 by Mitchell Cobb MD) Sinus bradycardia (Acute) Dizziness (Acute) Pre-syncope (Acute) Lack of motivation (Acute) Impacted cerumen, bilateral (Acute) Alzheimer's dementia (Chronic) very mild Anxiety with depression (Acute) Health care proxy on file (Chronic) Nahomi Breaux, daughter SHAR (Physician Orders for Life-Sustaining Treatment) (Chronic) signed 01/22/21 FULL CODE Insomnia (Acute) MCI (mild cognitive impairment) (Acute) Paroxysmal SVT (supraventricular tachycardia) (Chronic) Goals of care, counseling/discussion (Acute) Palliative care patient (Acute) Anxiety about health (Acute) Dyspnea (Acute) Urticaria, chronic (Chronic) Discharge planning issues (Acute) DVT prophylaxis (Acute) Restless leg syndrome (Acute) Normal colonoscopy (Acute) Mild chronic gastritis (Chronic) Idiopathic peripheral neuropathy (Acute) Idiopathic peripheral autonomic neuropathy (Acute) Memory loss (Acute) Abrasion of face (Acute) Facial contusion (Acute) 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 (Acute) Conductive hearing loss, external ear (Acute) Sensorineural hearing loss of both ears (Acute) Dysphagia (Acute) Dyspnea on exertion (Acute) Orthostatic hypotension (Chronic) Medical History Allergic rhinitis Bilateral leg pain Bilateral leg weakness Cold feet Dementia mild Dizziness Fatigue Frequent PVCs Gastritis Hearing loss Hives Hx of bronchitis Hx of migraines Iliotibial band friction syndrome of both knees Ingrown toenail Insect bite Knee joint pain Lung nodule Migraine Myalgia Nail abnormality Obstructive sleep apnea Onychomycosis Osteoporosis Pain in left shoulder Palpitations Pelvic floor instability Peripheral neuropathy Raynauds syndrome Tubular adenoma Surgical History H/O foot surgery r foot surgerly H/O knee surgery L knee surgery-patella History of colonoscopy Hx of tonsillectomy Family History Mother , age 86 from dementia with hallucinations ? lewy body Dementia Father , age 89 from prostate cancer and malnutrition Prostate cancer Malnutrition Sister , age 80 from dementia, unspecified type Dementia Daughter No problems noted. Son No problems noted. 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
[2022-03-14 15:30] VITALS: BP 131/65; PULSE 52; RESP 16; TEMP 36.4; O2SAT 96
--- NOTE | 2022-03-19 18:00 | INDS_ITS ---
Date of service: 03/19/22 PT Notes Visit Reasons: Presyncope,Vertigo Physical Therapy Swing Bed Discharge Summary Date : 03/19/22 Date of service: 03/15/2022 through 03/19/2022 This is a clinical summary of care provided for the duration of dates listed above. No charge was made in the completion of this documentation. Referring Doctor: Dr. Cobb PT Orders: PT CONSULT: Extended stay- weakness Precautions: Fall. Standard. Activity as tolerated. Patient Profile/Admitting Diagnosis:? Patient is an 81-year-old female patient who presented to the ED on 03/06/2022 with report of dizziness and feeling of passing out.? Patient is diagnosed with dizziness, anxiety with depression, and othostatic hypotension.She participated in 10 PT sessions over the course of 8 days, with improvements in mobility and safety, although continued need for progress prior to returning home. She requires half-way for ongoing rehab, with anticipated transfer [facility] on Sunday 03/18. Transitioned to Swing Bed level of care here at [facility] until then. PMHX: All Active Problems?(Updated 03/07/22 @ 06:15 by Judith Bowling MD) Dizziness (Acute) Pre-syncope (Acute) Lack of motivation (Acute) Impacted cerumen, bilateral (Acute) Alzheimer's dementia (Acute) very mild Anxiety with depression (Acute) Health care proxy on file (Chronic) Nahomi Breaux, daughter SHAR (Physician Orders for Life-Sustaining Treatment) (Chronic) signed 01/22/21 FULL CODE Insomnia (Acute) MCI (mild cognitive impairment) (Acute) Paroxysmal SVT (supraventricular tachycardia) (Chronic) Goals of care, counseling/discussion (Acute) Palliative care patient (Acute) Anxiety about health (Acute) Dyspnea (Acute) Urticaria, chronic (Chronic) Discharge planning issues (Acute) DVT prophylaxis (Acute) Restless leg syndrome (Acute) Normal colonoscopy (Acute) Mild chronic gastritis (Chronic) Idiopathic peripheral neuropathy (Acute) Idiopathic peripheral autonomic neuropathy (Acute) Memory loss (Acute) Abrasion of face (Acute) Facial contusion (Acute) 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 (Acute) Conductive hearing loss, external ear (Acute) Sensorineural hearing loss of both ears (Acute) Dysphagia (Acute) Dyspnea on exertion (Acute) Orthostatic hypotension (Acute) Medical History? Allergic rhinitis Bilateral leg pain Bilateral leg weakness Cold feet Dementia mild Dizziness Fatigue Frequent PVCs Gastritis Hearing loss Hives Hx of bronchitis Hx of migraines Iliotibial band friction syndrome of both knees Ingrown toenail Insect bite Knee joint pain Lung nodule Migraine Myalgia Nail abnormality Obstructive sleep apnea Onychomycosis Osteoporosis Pain in left shoulder Palpitations Pelvic floor instability Peripheral neuropathy Raynauds syndrome Tubular adenoma Surgical History? H/O foot surgery r foot surgerly H/O knee surgery L knee surgery-patella History of colonoscopy Hx of tonsillectomy Social History/Home Situation: Lives with in a private home with 4 steps to enter. ? Independent with all aspects of ADLs prior to admission. Equipment Owned/DME: None Subjective: NT. See most recent SAWMILL SUPERVISOR notes. Objective: NT. See most recent SAWMILL SUPERVISOR notes. ROM: Right Upper Extremity: ? Shoulder Flexion WFL. Shoulder abduction WFL. Elbow flexion WFL. Wrist flexion WFL. Functional opening and closing of hand WFL. Left Upper Extremity:? Shoulder Flexion WFL. Shoulder abduction WFL. Elbow flexion WFL. Wrist flexion WFL. Functional opening and closing of hand WFL. Right Lower Extremity: Hip flexion WFL. Hip abduction WFL. Knee flexion WFL. Ankle dorsiflexion WFL. Ankle plantarflexion WFL. Left Lower Extremity: Hip flexion WFL. Hip abduction WFL. Knee flexion WFL. Ankle dorsiflexion WFL. Ankle plantarflexion WFL. Strength: Right Upper Extremity: Shoulder flexors 4-/5. Shoulder abductors 4-/5. Elbow flexors 4-/5. Elbow extensors 4-/5. System Administration Advisor strong. Left Upper Extremity:? Shoulder flexors 4-/5. Shoulder abductors 4-/5. Elbow flexors 4-/5. Elbow extensors 4-/5. System Administration Advisor strong. Right Lower Extremity: Hip flexors 4-/5. Hip abductors 4-/5. Knee flexors 4-/5. Knee extensors 4/5. Ankle dorsiflexors 4-/5. Ankle plantarflexors 4-/5. Left Lower Extremity: Hip flexors 4-/5. Hip abductors 4-/5. Knee flexors 4-/5. Knee extensors 4/5. Ankle dorsiflexors 4-/5. Ankle plantarflexors 4-/5. BED MOBILITY/TRANSFERS? Sit-stand: SBA? Stand-sit: SBA ? GAIT? Assistive Device: 4WW in a.m.; No AD in p.m. ? Weight bearing: Full Assist: SBA in a.m.; CGA (with intermittent CHANNELER) in p.m.? Distance: 400' in a.m.; 700' in p.m. ? Deviation: Slight unsteadiness improving with distance, improved pacing, B knee flexion and genu valgum with use of 4WW. Balance: Static Sitting: Good Dynamic Sitting: Good Static Standing: Fair Dynamic Standing: Fair Special Tests: Mobility Limitations Standardized Measure [facility] AM-PAC 6 clicks Basic Mobility Inpatient Short Form: Raw Score: 20 ? CMS Score: 29% deficit? ?? Assessment: Improving mobility, although with episodes of dizziness/ hypotension continuing to dictate activity tolerance and safe mobility. Requires continued PT intervention prior to safe return home. Patient has now transitioned to Swing Bed level of care prior to transitioning to SNF for rehab next week. She currently demonstrates ?the following impairment level findings: 1.? Decreased strength to B UE/LE major muscle groups 2.? Impaired sitting/standing balance 3.? Impaired activity tolerance 4.? Report of lightheadedness Impairments are contributing to the following functional limitations: 1.? Difficulty with ambulation without assistive device and physical assistance 3.? Increased completion time for mobility ADL performance 4.? Increased risk for falls 5.? Difficulty with managing steps alone safely Goals: Goals X1 week 1. Supine-Sit: supervision NOT MET 2. Sit-Supine : supervision NOT MET 3. Sit-Stand : supervision NOT MET 4. Stand-Sit: supervision NOT MET 5. Bed-Chair : supervision with 4WW NOT MET 6. Chair-Bed: supervision with FWW NOT MET 7. Independent gait on level surface with use of 4WW x 120', supervision only NOT MET D[place]car[place] Plan: [] Home with no services [] [X] Home with services. Patient will benefit from home health PT services in order to progress mobility level using least restrictive assistive ambulatory device, assess home safety, identify additional equipment needs, and establish a functional maintenance program that will increase ability of patient to remain at home. [] Home with outpatient PT [] [] SNF for continued rehabilitation [] [] [facility] [] [] SNF versus LTC based on ability to participate and progress [] TREATMENT CODE/TIME: SC Thank you for the opportunity to participate in the care of this patient. Cherry Franco PT, DPT, CLT [facility] [place], [place]
== END 2022-03-14 16:04 | disposition swing bed (61) | DRG 312 ==
LOC: ER 03-07 00:58 → MS 03-07 01:36
PROVIDERS: Family Medicine; Internal Medicine; Physician Assistant; Admitting Provider Internal Medicine; Emergency Provider Emergency Medicine; PCP Family Medicine; Visit Provider Internal Medicine
DX: I95.1 Orthostatic hypotension (principal); R00.1 Bradycardia, unspecified; F41.8 Other specified anxiety disorders; I47.1 Supraventricular tachycardia; G30.9 Alzheimer's disease, unspecified; F02.80 Dementia in other diseases classified elsewhere, unspecified severity, without behavioral disturbance, psychotic disturbance, mood disturbance, and anxiety; G47.00 Insomnia, unspecified; G25.81 Restless legs syndrome; K29.50 Unspecified chronic gastritis without bleeding; G62.9 Polyneuropathy, unspecified; I73.00 Raynaud's syndrome without gangrene; G47.33 Obstructive sleep apnea (adult) (pediatric); G43.909 Migraine, unspecified, not intractable, without status migrainosus; M81.0 Age-related osteoporosis without current pathological fracture; R91.1 Solitary pulmonary nodule
CPT/HCPCS: 36415; 70496; 70498; 71275; 80048; 80053; 82533; 85027; 87206; 87635; 87798; 93005; 93306; 96360; 97110; 97162; 97530; 99285; J1650; 70450; 71045; 81003; 83735; 84443; 84484; 85025; 85049; 86618; 93010; 99220; 99231; 99232; 99238; G0378; J0834; J1885; J3490

== ENCOUNTER 2022-03-14 15:47 | Inpatient (IN) | payer MEDICARE, SELFPAY ==
--- NOTE | 2022-03-14 14:49 | CM.SBPSYCH ---
- If Service Date Differs Date of service: 03/14/22 Time of Service: 14:49 SB Psychosocial/Act.Assessment - Hospital Admission Admission Date: 03/06/22 Admission From:: [facility] Inpatient Diagnosis:: Orthostatic hypotension, Sinus bradycardia - Swing Bed Admission Swing Bed Admit Date:: 03/14/22 (Transitioning to SWB status, while patient waits for SNF placement at [facility] for STR.) Swing Bed Level of Care: Level 1/SNF - Social Supports PREVIOUS FUNCTIONAL STATUS/SOCIAL/FAMILY SUPPORTS:: Hoda lives in a single family home in [place] with her Sung. She has 3 children. Her daughter Nahomi lives in [facility] and is very supportive. She has another daughter in [place] and a son in [place]. Hoda uses a walker at home and has a refresh technician once a month and meals on Wheels twice a weeek. Hoda also has a Life Alert for herself and one for her . - Prior to Admission Living Arrangements/Environment Prior to Admission:: Barbi lives in [place] with her Sung. Per pt, Sung had a stroke last year and he requires some assistance. She has been able to help him with his ADL's until recently. Sung is staying with their daughter at this time. 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 - Interests Hobbies:: Knitting, reading, playing solitaire, napping Reading:: Chapter books, the bible - Present Functional Status Physical Abilities:: ambulation is limited due to dizziness and decreased strength Cognitive:: no deficits noted Communication:: No deficits noted Sensory Systems: Wears glasses Behavior:: Talkative, appropriate - Medical History PAST MEDICAL HISTORY/PAST SURGICAL HISTORY:: ll Active Problems (Updated 03/07/22 @ 06:15 by Judith Bowling MD). Dizziness (Acute). Pre-syncope (Acute). Lack of motivation (Acute). Impacted cerumen, bilateral (Acute). Alzheimer's dementia (Acute). very mild. Anxiety with depression (Acute). Health care proxy on file (Chronic). Nahomi Breaux, daughter. SHAR (Physician Orders for Life-Sustaining Treatment) (Chronic). signed 01/22/21 FULL CODE. Insomnia (Acute). MCI (mild cognitive impairment) (Acute). Paroxysmal SVT (supraventricular tachycardia) (Chronic). Goals of care, counseling/discussion (Acute). Palliative care patient (Acute). Anxiety about health (Acute). Dyspnea (Acute). Urticaria, chronic (Chronic). Discharge planning issues (Acute). DVT prophylaxis (Acute). Restless leg syndrome (Acute). Normal colonoscopy (Acute). Mild chronic gastritis (Chronic). Idiopathic peripheral neuropathy (Acute). Idiopathic peripheral autonomic neuropathy (Acute). Memory loss (Acute). Abrasion of face (Acute). Facial contusion (Acute). 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 (Acute). Conductive hearing loss, external ear (Acute). Sensorineural hearing loss of both ears (Acute). Dysphagia (Acute). Dyspnea on exertion (Acute). Orthostatic hypotension (Acute). Medical History . Allergic rhinitis. Bilateral leg pain. Bilateral leg weakness. Cold feet. Dementia. mild. Dizziness. Fatigue. Frequent PVCs. Gastritis. Hearing loss. Hives. Hx of bronchitis. Hx of migraines. Iliotibial band friction syndrome of both knees. Ingrown toenail. Insect bite. Knee joint pain. Lung nodule. Migraine. Myalgia. Nail abnormality. Obstructive sleep apnea. Onychomycosis. Osteoporosis. Pain in left shoulder. Palpitations. Pelvic floor instability. Peripheral neuropathy. Raynauds syndrome. Tubular adenoma. Surgical History . H/O foot surgery. r foot surgerly. H/O knee surgery. L knee surgery-patella. History of colonoscopy. Hx of tonsillectomy Past Psychiatric Treatment:: HX of anxiety and depression, mild alzheimers dementia - Admission Data Reason for Swing Bed Admission:: SWB1 status while waiting to discharge to [facility] for STR. Discharge Plan:: Discharge to [facility] pending bed availability. She has already been accepted. Chimney Sweeper: DANIELA Date Assessment was completed:: 03/14/22
--- NOTE | 2022-03-14 14:53 | CM.SWINGPC ---
- If Service Date Differs Date of service: 03/14/22 Time of Service: 14:53 Swingbed Plan of Care Plan of care: SWING BED PROGRAM ACTIVITIES/DISCHARGE PLAN OF CARE ACTIVITIES PLAN Date: 03/14/22 Identified Need: Life enrichment during extended hospital stay in [facility]. Intervention/Plan: Hoda enjoys reading, playing solitaire on her cell phone, talking with family, knitting. She may also enjoy Music therapy/Reiki if available. Initials DL DISCHARGE PLAN Date: 03/14/22 Identified Need: Strengthening, improved mobility for more independence. Short term rehab prior to discharging back to her home in [place]. Intervention/Plan: Hoda will work with PT to gain strength and independence with mobility. Pt has been accepted to [facility] for STR next week. Initials DANIELA
[2022-03-14 15:00] VITALS: PULSE 53
--- NOTE | 2022-03-14 15:53 | W.PM.HP.N ---
Date of service: 03/14/22 Time of Service: 15:54 Assessment and Plan Assessment and plan (1) Orthostatic hypotension: Status: Chronic Assessment and plan: while she still exhibits some drop in her bp w/ standing, she does not seem to get as low (gets down to low 100's). She is wearing EZEQUIEL wraps on her legs. I have ordered thigh high support stockings but these had to be ordered in. She really ought to be measured and fitted for prescription compression stockings such as Juzzo or Jobst w/ compression ratings of 20 to 30 mm that are panty hose style. This would provide her better venous return. I think that since her ropinirole was stopped her orthostasis has improved. I will keep her off her ropinirole, continue midodrine 10 mg tid, and fludrocortisone 0.1 mg bid. I have resumed her rivastigmine patch 4.6 mg but decreased this to every 48 hr. I am not sure how much the rivastigmine was contributing to her bradycardia. She would not be a candidate for pacer unless we can prove that her bradycardia is not caused by her medicine and that the bradycardia is directly the cause of her near syncope. (2) Sinus bradycardia: Status: Acute Assessment and plan: will order outpatient cardiac event recorder; I have asked RT to see if this can be done while she is a swing bed patient (3) Alzheimer's dementia: Status: Chronic Assessment and plan: continue namenda and rivastigmine (4) Anxiety with depression: Status: Acute Assessment and plan: cont. mirtazapine (5) Restless leg syndrome: Status: Acute Assessment and plan: continue gabapentin at higher dose of 900 mg po qpm stop ropiinole History of Present Illness History of Present Illness Chief Complaint: dizziness Narrative: 89-year-old female with a history of orthostatic hypotension, Alzheimer's dementia, anxiety disorder, restless leg syndrome, PSVT, presented to the emergency department on 03/07/2022 with complaints of worsening dizziness which she feels like she is going to pass out. This is been going on for last few days prior to admission. She has had previous problems with orthostatic lightheadedness recurrent episodes or worse than usual and she has felt like she is going to pass out. Previously she would get lightheaded when she would bend over and stand up quickly but for the last 3 days prior to admission she was experiencing episodes in which she feels like she is going to pass out. In the emergency department she was found to be orthostatic without any cardiac arrhythmias. She was admitted to the hospital to evaluate for vertigo versus orthostatic hypotension versus arrhythmias versus anxiety disorder. During her hospital stay she was noted to have significant orthostatic hypotension which she would drop her blood pressure down into the 60s and 70s. ekg monitor tech was maintained throughout her hospital stay and she never had any PSVT throughout her hospital stay but exhibited significant bradycardia with heart rates as low as 35 bpm and during her orthostatic hypotension she had a blunted chronotropic response. She was trialed on midodrine 10 mg 3 times daily but after couple days when there was no improvement her midodrine was discontinued. She was started on fludrocortisone 0.1 mg daily which did not significantly improve her orthostasis but when fludrocortisone was increased up to 0.1 mg TID and midodrine was resumed to 10 mg tid she began to demonstrate improvement. However she was having leg edema and therefore her fludrocortisone was decreased to 0.1 mg bid. Her rivastigmine patch which was prescribed for her dementia was witheld to see if this made any improvement in her bradycardia and it did not therefore it was resumed at her request. Sangeetha. was consulted and worked with her on her gait and balance. She was tolerating ambulation w/ a FWW. It was recommended that she be referred to continued therapy at a SNF. Referrals were placed to [facility] and she was accepted there but they could not take her until March 18 so she was put on swing bed status. Cardiology consult was requested to evaluate her bradycardia to see if she was a candidate for a pacemaker but specialty clinic never received the consult and when this hospitalist called the department the assistant women's tennis coach was no longer available. Patient will be set up with a cardiac event recorder as an outpatient and an outpatient referrral to cardiology will be made upon discharge from swing bed status. Review of Systems All systems reviewed & are unremarkable except as noted in HPI and below PFSH All Active Problems (Updated 03/14/22 @ 23:31 by Mitchell Cobb MD) Sinus bradycardia (Acute) Dizziness (Acute) Pre-syncope (Acute) Lack of motivation (Acute) Impacted cerumen, bilateral (Acute) Alzheimer's dementia (Chronic) very mild Anxiety with depression (Acute) Health care proxy on file (Chronic) Nahomi Breaux, daughter SHAR (Physician Orders for Life-Sustaining Treatment) (Chronic) signed 01/22/21 FULL CODE Insomnia (Acute) MCI (mild cognitive impairment) (Acute) Paroxysmal SVT (supraventricular tachycardia) (Chronic) Goals of care, counseling/discussion (Acute) Palliative care patient (Acute) Anxiety about health (Acute) Dyspnea (Acute) Urticaria, chronic (Chronic) Discharge planning issues (Acute) DVT prophylaxis (Acute) Restless leg syndrome (Acute) Normal colonoscopy (Acute) Mild chronic gastritis (Chronic) Idiopathic peripheral neuropathy (Acute) Idiopathic peripheral autonomic neuropathy (Acute) Memory loss (Acute) Abrasion of face (Acute) Facial contusion (Acute) 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 (Acute) Conductive hearing loss, external ear (Acute) Sensorineural hearing loss of both ears (Acute) Dysphagia (Acute) Dyspnea on exertion (Acute) Orthostatic hypotension (Chronic) Medical History Allergic rhinitis Bilateral leg pain Bilateral leg weakness Cold feet Dementia mild Dizziness Fatigue Frequent PVCs Gastritis Hearing loss Hives Hx of bronchitis Hx of migraines Iliotibial band friction syndrome of both knees Ingrown toenail Insect bite Knee joint pain Lung nodule Migraine Myalgia Nail abnormality Obstructive sleep apnea Onychomycosis Osteoporosis Pain in left shoulder Palpitations Pelvic floor instability Peripheral neuropathy Raynauds syndrome Tubular adenoma Surgical History H/O foot surgery r foot surgerly H/O knee surgery L knee surgery-patella History of colonoscopy Hx of tonsillectomy Family History Mother , age 86 from dementia with hallucinations ? lewy body Dementia Father , age 89 from prostate cancer and malnutrition Prostate cancer Malnutrition Sister , age 80 from dementia, unspecified type Dementia Daughter No problems noted. Son No problems noted. 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 Do you think of yourself as: straight/heterosexual Current gender identity: female What is your relationship status?: How often do you talk on the phone with friends or family?: three or more times per week How often do you get together with friends or relatives?: three or more times per week Panel score (0-1 are the most socially isolated patients): 2 What type of physical activity do you participate in: walking Duration: < 15 minutes/day Frequency: does not exercise Special antoinette needs: No Seatbelt use: always Do you feel safe at home: Yes Do you feel safe in your relationship?: Yes Meds Allergies and Home Medications Allergies Allergy/AdvReac Type Severity Reaction Status Date / Time hydroxyzine Allergy Severe Pt states Verified 03/06/22 20:25 lips and eyes swell up cetirizine [From Zyrtec] Allergy Mild Verified 03/06/22 20:25 rivastigmine [From Exelon] Allergy Mild Nausea and Verified 03/06/22 20:25 rash sertraline Allergy Unknown Verified 03/06/22 20:25 donepezil HCl [From Aricept] AdvReac Mild Nausea Verified 03/06/22 20:25 Home Medications Medication Instructions Recorded Confirmed Type aspirin 81 mg chewable tablet 81 mg PO DAILY 12/12/14 03/14/22 History (Aspirin Low-Strength) senavxjx-rgu-glgja acid 0.4 1 tab PO DAILY 12/12/14 03/06/22 History mg-lycopene 300 mcg-lutein 250 mcg tablet (Centrum Silver) omega-3 fatty acids-fish oil 340 1 cap PO DAILY 08/02/17 03/14/22 History mg-1,000 mg capsule (Fish Oil) rivastigmine 4.6 mg/24 hour 4.6 mg transdermal DAILY 07/18/19 03/14/22 History transdermal patch (Exelon Patch) simethicone 62.5 mg oral strips 1 strip PO DIRECTED PRN 07/18/19 03/14/22 History (Gas-X) cholecalciferol (vitamin D3) 25 25 mcg PO DAILY 01/09/21 03/14/22 History mcg (1,000 unit) capsule clobetasol 0.05 % topical cream 1 applic topical BID 01/09/21 02/27/22 History cyanocobalamin (vitamin B-12) 1,000 mcg PO DAILY 01/09/21 03/14/22 History 1,000 mcg capsule diclofenac sodium 1 % topical gel 2 g topical BID PRN 01/09/21 03/06/22 History (Voltaren) estradiol 0.01% (0.1 mg/gram) 1 g vaginal .1-3 times a week 01/09/21 02/27/22 History vaginal cream (Estrace) gabapentin 300 mg capsule 600 mg PO QHS 01/09/21 03/14/22 History hawthorn 500 mg capsule 1 mg PO DAILY 01/09/21 02/27/22 History ropinirole 0.5 mg tablet 0.5 mg PO DAILY 05/09/21 03/14/22 History memantine 10 mg tablet 10 mg PO BID #180 tabs 09/10/21 03/14/22 Rx mirtazapine 30 mg tablet 15 mg PO DAILY 09/10/21 03/14/22 History escitalopram oxalate 10 mg tablet 10 mg PO DAILY #30 tabs 01/20/22 03/14/22 Rx Exam Narrative Exam Narrative: Hoda is sitting up in her chair. She did not have too bad of a day. No serious orthostatic episodes. Heart: bradycardic but regular, no murmur Lungs: some basilar rales; no rhonchi or wheezing Abdomen: soft, nontender, nondistended legs: 1+ pitting edema Neurologic exam grossly normal
--- NOTE | 2022-03-14 18:15 | NUR.NOTE ---
Nursing Note: Patient is now admitted swing bed status for continued PT pending transfer to SNF
[2022-03-14 20:29] VITALS: BP 133/79
[2022-03-14] MEDS: Gabapentin 300 MG CAP 900 MG PO (20:31)
[2022-03-14] MEDS: Midodrine 2.5 MG TAB 10 MG PO (20:31)
[2022-03-14] MEDS: Memantine 5 MG TAB 10 MG PO (20:31)
[2022-03-14] MEDS: Fludrocortisone 0.1 MG TAB PO (20:31)
[2022-03-14] MEDS: Mirtazapine 15 MG TAB PO (22:10)
[2022-03-14] MEDS: Melatonin 3 MG TAB 9 MG PO (22:10)
[2022-03-14 22:58] VITALS: BP 155/71; PULSE 52; RESP 20; TEMP 36.4; O2SAT 96
[2022-03-15] MEDS: LORazepam 0.5 MG TAB PO (02:03)
[2022-03-15] MEDS: Normal Saline Flush 10 ML SYR IVP (06:25)
[2022-03-15] MEDS: Fludrocortisone 0.1 MG TAB PO ×2 (08:06→20:12)
[2022-03-15] MEDS: Cholecalciferol (Vitamin D3) 1,000 UNIT TAB 1000 UNITS PO (08:06)
[2022-03-15] MEDS: Aspirin 81 MG CHEW PO (08:06)
[2022-03-15] MEDS: Fexofenadine 180 MG TAB PO (08:07)
[2022-03-15] MEDS: Memantine 5 MG TAB 10 MG PO ×2 (08:07→20:12)
[2022-03-15] MEDS: Multivitamin TAB 1 TAB PO (08:07)
[2022-03-15] MEDS: Omega-3 Fatty Acids 1000 MG CAP PO (08:08)
[2022-03-15] MEDS: Escitalopram 10 MG TAB PO (08:08)
[2022-03-15] MEDS: Midodrine 2.5 MG TAB 10 MG PO ×3 (08:08→20:12)
[2022-03-15] MEDS: Enoxaparin 40 MG/0.4 ML SYR SC (08:08)
[2022-03-15] MEDS: Cyanocobalamin 500 MCG TAB 1000 MCG PO (08:08)
[2022-03-15 08:13] VITALS: BP 118/63; PULSE 53; RESP 16; TEMP 36; O2SAT 97
--- NOTE | 2022-03-15 10:12 | PTDS_ITS ---
Supervising Provider: Mali Gilbert PT Diagnosis: balance problem,?orthostatic hypotension Diagnosis: Balance problem Date of Onset: 01/29/22 Weeks Elapsed: 6 week(s) and 3 day(s) Patient Location: [facility] Surg Referring Provider: Date of Service: March 15, 2022 10:12 am PT Notes Visit Reasons: Orthostatic Hypotension Physical Therapy Inpatient Initial Evaluation Date: 03/07/2022 - 03/14/22 This document serves as a summary of care. No PT charges associated with this note. Referring Doctor: Judith Bowling MD PT Orders: PT CONSULT: Limited ability Precautions: Fall. Standard. Activity as tolerated. Patient Profile/Admitting Diagnosis: Patient is an 81-year-old female patient who presented to the ED on 03/06/2022 with report of dizziness and feeling of passing out. Patient is diagnosed with dizziness, anxiety with depression, and othostatic hypotension.She participated in 10 PT sessions over the course of 8 days, with improvements in mobility and safety, although continued need for progress prior to returning home. She requires intermediate for ongoing rehab, with anticipated transfer to [facility] on Sunday 03/18. Transitioned to Swing Bed level of care here at [facility] until then. PMHX: All Active Problems?(Updated 03/07/22 @ 06:15 by Judith Bowling MD) Dizziness (Acute) Pre-syncope (Acute) Lack of motivation (Acute) Impacted cerumen, bilateral (Acute) Alzheimer's dementia (Acute) very mild Anxiety with depression (Acute) Health care proxy on file (Chronic) Nahomi Breaux, daughter SHAR (Physician Orders for Life-Sustaining Treatment) (Chronic) signed 01/22/21 FULL CODE Insomnia (Acute) MCI (mild cognitive impairment) (Acute) Paroxysmal SVT (supraventricular tachycardia) (Chronic) Goals of care, counseling/discussion (Acute) Palliative care patient (Acute) Anxiety about health (Acute) Dyspnea (Acute) Urticaria, chronic (Chronic) Discharge planning issues (Acute) DVT prophylaxis (Acute) Restless leg syndrome (Acute) Normal colonoscopy (Acute) Mild chronic gastritis (Chronic) Idiopathic peripheral neuropathy (Acute) Idiopathic peripheral autonomic neuropathy (Acute) Memory loss (Acute) Abrasion of face (Acute) Facial contusion (Acute) 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 (Acute) Conductive hearing loss, external ear (Acute) Sensorineural hearing loss of both ears (Acute) Dysphagia (Acute) Dyspnea on exertion (Acute) Orthostatic hypotension (Acute) Medical History? Allergic rhinitis Bilateral leg pain Bilateral leg weakness Cold feet Dementia mild Dizziness Fatigue Frequent PVCs Gastritis Hearing loss Hives Hx of bronchitis Hx of migraines Iliotibial band friction syndrome of both knees Ingrown toenail Insect bite Knee joint pain Lung nodule Migraine Myalgia Nail abnormality Obstructive sleep apnea Onychomycosis Osteoporosis Pain in left shoulder Palpitations Pelvic floor instability Peripheral neuropathy Raynauds syndrome Tubular adenoma Surgical History? H/O foot surgery r foot surgerly H/O knee surgery L knee surgery-patella History of colonoscopy Hx of tonsillectomy Social History/Home Situation: Lives with in a private home with 4 steps to enter. Independent with all aspects of ADLs prior to admission. Equipment Owned/DME: None Subjective: none obtained Objective: ROM: Right Upper Extremity: ? Shoulder Flexion WFL. Shoulder abduction WFL. Elbow flexion WFL. Wrist flexion WFL. Functional opening and closing of hand WFL. Left Upper Extremity:? Shoulder Flexion WFL. Shoulder abduction WFL. Elbow flexion WFL. Wrist flexion WFL. Functional opening and closing of hand WFL. Right Lower Extremity: Hip flexion WFL. Hip abduction WFL. Knee flexion WFL. Ankle dorsiflexion WFL. Ankle plantarflexion WFL. Left Lower Extremity: Hip flexion WFL. Hip abduction WFL. Knee flexion WFL. Ankle dorsiflexion WFL. Ankle plantarflexion WFL. Strength: Right Upper Extremity: Shoulder flexors 4-/5. Shoulder abductors 4-/5. Elbow flexors 4-/5. Elbow extensors 4-/5. [employer] Driver strong. Left Upper Extremity:? Shoulder flexors 4-/5. Shoulder abductors 4-/5. Elbow flexors 4-/5. Elbow extensors 4-/5. [employer] Sh[employer] Driver strong. Right Lower Extremity: Hip flexors 4-/5. Hip abductors 4-/5. Knee flexors 4-/5. Knee extensors 4-/5. Ankle dorsiflexors 4-/5. Ankle plantarflexors 4-/5. Left Lower Extremity: Hip flexors 4-/5. Hip abductors 4-/5. Knee flexors 4-/5. Knee extensors 4-/5. Ankle dorsiflexors 4-/5. Ankle plantarflexors 4-/5. BED MOBILITY/TRANSFERS? Sit-stand: Supervision?with 4WW ? Stand-sit: Supervision ? GAIT? Assistive Device: FWW? Weight bearing: FWB Assist: SBA ? Distance:? up to 150 feet ? Deviation: Ivett slowed. Complains of being lightheaded and mildly nauseous,? subsided with rest.? 97/51 mmHg and HR to 61 bpm after the first 150 feet using the FWW. Balance: Static Sitting: Good Dynamic Sitting: Good Static Standing: Fair Dynamic Standing: Fair Special Tests: Mobility Limitations Standardized Measure [facility] AM-PAC 6 clicks Basic Mobility Inpatient Short Form: Raw Score: 18? CMS Score: 47% deficit? ?? Assessment: Improving mobility, although with episodes of dizziness/ hypotension continuing to dictate activity tolerance and safe mobility. Requires continued PT intervention prior to safe return home. D/C to Swing Bed level of care prior to transitioning to SNF for rehab next week. Goals: Goals X1 week 1. Supine-Sit independent (progressing toward) 2. Sit-Supine independent(progressing toward) 3. Sit-Stand independent(progressing toward) 4. Stand-Sit independent with FWW(progressing toward) 5. Bed-Chair independent with FWW(progressing toward) 6. Chair-Bed independent with FWW(progressing toward) 7. Independent gait on level surface with use of FWW for at least 300 feet without report of pain nor dyspnea(progressing toward) 8. Independent stair negotiation while holding onto B rails for at least 4 steps without report of pain nor dyspnea(progressing toward) 9. Independent with home exercise program (progressing toward) 10. Good static and dynamic standing balance/tolerance(progressing toward) Plan of Care/Treatment Plan: d/c to Swing Bed level of care TREATMENT CODE/TIME: NONE Thank you for the opportunity to participate in the care of this patient. Mali Gilbert, PT, DPT [facility]
--- NOTE | 2022-03-15 10:21 | IN_ITS ---
PT Notes Visit Reasons: Orthostatic Hypotension Physical Therapy Inpatient Swing Bed Evaluation Date : 03/15/22 Referring Doctor: Dr. Cobb PT Orders: PT CONSULT: Extended stay- weakness Precautions: Fall. Standard. Activity as tolerated. Patient Profile/Admitting Diagnosis: Patient is an 81-year-old female patient who presented to the ED on 03/06/2022 with report of dizziness and feeling of passing out. Patient is diagnosed with dizziness, anxiety with depression, and othostatic hypotension.She participated in 10 PT sessions over the course of 8 days, with improvements in mobility and safety, although continued need for progress prior to returning home. She requires [facility] for ongoing rehab, with anticipated transfer to [facility] on Sunday 03/18. Transitioned to Swing Bed level of care here at [facility] until then. PMHX: All Active Problems?(Updated 03/07/22 @ 06:15 by Judith Bowling MD) Dizziness (Acute) Pre-syncope (Acute) Lack of motivation (Acute) Impacted cerumen, bilateral (Acute) Alzheimer's dementia (Acute) very mild Anxiety with depression (Acute) Health care proxy on file (Chronic) Nahomi Breaux, daughter SHAR (Physician Orders for Life-Sustaining Treatment) (Chronic) signed 01/22/21 FULL CODE Insomnia (Acute) MCI (mild cognitive impairment) (Acute) Paroxysmal SVT (supraventricular tachycardia) (Chronic) Goals of care, counseling/discussion (Acute) Palliative care patient (Acute) Anxiety about health (Acute) Dyspnea (Acute) Urticaria, chronic (Chronic) Discharge planning issues (Acute) DVT prophylaxis (Acute) Restless leg syndrome (Acute) Normal colonoscopy (Acute) Mild chronic gastritis (Chronic) Idiopathic peripheral neuropathy (Acute) Idiopathic peripheral autonomic neuropathy (Acute) Memory loss (Acute) Abrasion of face (Acute) Facial contusion (Acute) 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 (Acute) Conductive hearing loss, external ear (Acute) Sensorineural hearing loss of both ears (Acute) Dysphagia (Acute) Dyspnea on exertion (Acute) Orthostatic hypotension (Acute) Medical History? Allergic rhinitis Bilateral leg pain Bilateral leg weakness Cold feet Dementia mild Dizziness Fatigue Frequent PVCs Gastritis Hearing loss Hives Hx of bronchitis Hx of migraines Iliotibial band friction syndrome of both knees Ingrown toenail Insect bite Knee joint pain Lung nodule Migraine Myalgia Nail abnormality Obstructive sleep apnea Onychomycosis Osteoporosis Pain in left shoulder Palpitations Pelvic floor instability Peripheral neuropathy Raynauds syndrome Tubular adenoma Surgical History? H/O foot surgery r foot surgerly H/O knee surgery L knee surgery-patella History of colonoscopy Hx of tonsillectomy Social History/Home Situation: Lives with in a private home with 4 steps to enter. Independent with all aspects of ADLs prior to admission. Equipment Owned/DME: None Subjective: Hoda states that she is feeling good this morning. She is anxious to get dressed. Objective: ROM: Right Upper Extremity: ? Shoulder Flexion WFL. Shoulder abduction WFL. Elbow flexion WFL. Wrist flexion WFL. Functional opening and closing of hand WFL. Left Upper Extremity:? Shoulder Flexion WFL. Shoulder abduction WFL. Elbow flexion WFL. Wrist flexion WFL. Functional opening and closing of hand WFL. Right Lower Extremity: Hip flexion WFL. Hip abduction WFL. Knee flexion WFL. Ankle dorsiflexion WFL. Ankle plantarflexion WFL. Left Lower Extremity: Hip flexion WFL. Hip abduction WFL. Knee flexion WFL. Ankle dorsiflexion WFL. Ankle plantarflexion WFL. Strength: Right Upper Extremity: Shoulder flexors 4-/5. Shoulder abductors 4-/5. Elbow flexors 4-/5. Elbow extensors 4-/5. Seed Tester strong. Left Upper Extremity:? Shoulder flexors 4-/5. Shoulder abductors 4-/5. Elbow flexors 4-/5. Elbow extensors 4-/5. Seed Tester strong. Right Lower Extremity: Hip flexors 4-/5. Hip abductors 4-/5. Knee flexors 4-/5. Knee extensors 4/5. Ankle dorsiflexors 4-/5. Ankle plantarflexors 4-/5. Left Lower Extremity: Hip flexors 4-/5. Hip abductors 4-/5. Knee flexors 4-/5. Knee extensors 4/5. Ankle dorsiflexors 4-/5. Ankle plantarflexors 4-/5. BED MOBILITY/TRANSFERS? Sit-stand: Supervision?with 4WW ? Stand-sit: Supervision ? GAIT? Assistive Device: FWW? Weight bearing: FWB Assist: SBA ? Distance:? unable to ambulate due to hypotension and progessing symptoms of dizziness in standing. ? Has been ambulating up to 150' with 4WW when BP allows. ? Vitals: Sittin/65, HR 71 Standin/50, HR 72 Sitting x 1 minutes: 112/63, HR 72 Balance: Static Sitting: Good Dynamic Sitting: Good Static Standing: Fair Dynamic Standing: Fair Special Tests: Mobility Limitations Standardized Measure [facility] AM-PAC 6 clicks Basic Mobility Inpatient Short Form: Raw Score: 20 ? CMS Score: 29% deficit? ?? Treatment: Today's session consisted of evaluation, followed by instruction in standing and seated exercises as noted below. Discussed appropriate treatment planning, with patient verbalizing agreement. 85021 (Moderate complexity initial evaluation) [id number]: Patient instructed in the following exercises, all with close monitoring of vitals and symptoms of hypotension: 1. standing march x 15 seconds 2. heel raises 6x 3. knee extension 10x each 4. ankle pumps 10x 5. Shoulder punch ups 10x 6. SLR 10x each, initially requiring min A on left, and eventually progressing to independent completion 7. heel slides 10x Assessment: Improving mobility, although with episodes of dizziness/ hypotension continuing to dictate activity tolerance and safe mobility. Requires continued PT intervention prior to safe return home. Patient has now transitioned to Swing Bed level of care prior to transitioning to SNF for rehab next week. She currently demonstrates ?the following impairment level findings: 1.? Decreased strength to B UE/LE major muscle groups 2.? Impaired sitting/standing balance 3.? Impaired activity tolerance 4.? Report of lightheadedness Impairments are contributing to the following functional limitations: 1.? Difficulty with ambulation without assistive device and physical assistance 3.? Increased completion time for mobility ADL performance 4.? Increased risk for falls 5.? Difficulty with managing steps alone safely Patient is assessed as a 17061 moderate complexity based on the following: History: 81-year-old female with past medical history as indicated above, with mobility dictated by BP, as she continues to get hypotensive with mobility. Examination: Demonstrable impairment in strength, balance, and mobility level with underlying impairments and functional limitations as exhibited above as well as deficit score of 69% utilizing the [facility] Mobility Inpatient Short Form Presentation: Evolving Decision Makin moderate complexity Goals: Goals X1 week 1. Supine-Sit: supervision 2. Sit-Supine : supervision 3. Sit-Stand : supervision 4. Stand-Sit: supervision 5. Bed-Chair : supervision with 4WW 6. Chair-Bed: supervision with FWW 7. Independent gait on level surface with use of 4WW x 120', supervision only Plan of Care/Treatment Plan: 1-2x/day, 7 days/week x 1 week. Plan of care has been reviewed with the LENS DOTTER providing the service under Physical Therapy direction. Initiate Physical Therapy intervention for pain management as needed, strengthening, bed mobility, transfers, gait, stairs, balance training, and use of assistive device. [place]carge Plan: D/C to [facility] for continued rehab later next week, as planned. TREATMENT CODE/TIME: 40167, 14470 (10:35-11:05) Thank you for the opportunity to participate in the care of this patient. Mali Gilbert, PT, DPT [facility]
[2022-03-15] MEDS: Docusate Sodium 100 MG CAP PO (13:21)
[2022-03-15] MEDS: Acetaminophen 325 MG TAB PO (13:21)
[2022-03-15 15:45] VITALS: BP 149/74; PULSE 58; RESP 16; TEMP 36.2; O2SAT 97
--- NOTE | 2022-03-15 16:56 | NUR.NOTE ---
Nursing Note: Documentation reviewed Ezequiel Syed RN CMSRN.
[2022-03-15] MEDS: Gabapentin 300 MG CAP 900 MG PO (20:11)
[2022-03-15] MEDS: Melatonin 3 MG TAB 9 MG PO (21:13)
[2022-03-15] MEDS: Mirtazapine 15 MG TAB PO (21:14)
[2022-03-15] MEDS: Ibuprofen 400 MG TAB PO (21:14)
[2022-03-15 23:12] VITALS: BP 151/77; PULSE 60; RESP 16; TEMP 36.4; O2SAT 97
[2022-03-16] MEDS: Normal Saline Flush 10 ML SYR IVP (06:35)
[2022-03-16 07:33] LABS: Platelet Count 147 10^3/uL (130-400)
[2022-03-16] MEDS: Enoxaparin 40 MG/0.4 ML SYR SC (08:11)
[2022-03-16] MEDS: Memantine 5 MG TAB 10 MG PO ×2 (08:12→20:01)
[2022-03-16] MEDS: Aspirin 81 MG CHEW PO (08:12)
[2022-03-16] MEDS: Cholecalciferol (Vitamin D3) 1,000 UNIT TAB 1000 UNITS PO (08:12)
[2022-03-16] MEDS: Cyanocobalamin 500 MCG TAB 1000 MCG PO (08:12)
[2022-03-16] MEDS: Fludrocortisone 0.1 MG TAB PO ×2 (08:12→20:01)
[2022-03-16] MEDS: Omega-3 Fatty Acids 1000 MG CAP PO (08:12)
[2022-03-16] MEDS: Fexofenadine 180 MG TAB PO (08:12)
[2022-03-16] MEDS: Escitalopram 10 MG TAB PO (08:12)
[2022-03-16] MEDS: Multivitamin TAB 1 TAB PO (08:12)
[2022-03-16] MEDS: Midodrine 2.5 MG TAB 10 MG PO ×3 (08:12→20:01)
[2022-03-16 08:21] VITALS: BP 111/63; PULSE 51; RESP 16; TEMP 35.3; O2SAT 96
--- NOTE | 2022-03-16 11:48 | PT.INTREAT ---
Date of service: 03/16/22 Time of Service: 10:15 PT Notes Visit Reasons: Orthostatic Hypotension Inpatient Physical Therapy Treatment Note [facility] Date: 03/16/2022 PRECAUTIONS: Fall. Standard. Activity as tolerated. SUBJECTIVE: Stated she was able to walk around loop twice with nursing yesterday afternoon. Did complain of being dizzy in standing both prior to ther exercises and later in the morning when attempting to try to take a walk. Patient was questioning why mornings she feels so dizzy with standing, better in pm. OBJECTIVE: PAIN: No complaints of pain offered to me today. BED MOBILITY/TRANSFERS Up in chair upon my arrival. Sit-stand: SBA Stand-sit: SBA GAIT Assistive Device: Wheeled walker. Weight bearing: full Assist: CGA Distance: Only marched in place for 10 reps, due to low BP readings when standing Seated at rest BP 110/75 with HR of 65, Standing BP 98/59 with HR of 65 Attempted standing BP again approximately 30 minutes later and it was 86/44, in sitting prior to standing it was 115/69 with HR of 65 THEREX: Was able to perform seated knee ext x 10 reps, ankle pumps x 10 reps, shoulder rows x 10 reps, reclined SLRs x 10 reps and standing heel raises x 10 reps ASSESSMENT: Tolerated ther exercises well. Was able to stand to put on jeans with contact guarding only, but did complain of feeling dizzy. PLAN: Continue with current plan of care with focus on functional activities as able to tolerate. Continue to monitor vitals with standing activities. TREATMENT CODE/TIME: 13234, 10:15 to 10:35 (20')
[2022-03-16] MEDS: Acetaminophen 325 MG TAB PO ×2 (13:19→20:01)
[2022-03-16 15:41] VITALS: BP 129/72; PULSE 59; RESP 16; TEMP 36.4; O2SAT 97
--- NOTE | 2022-03-16 18:36 | NUR.NOTE ---
I have reviewed and approve the charting of Yvonne Ryan LPN.Nursing Note:
[2022-03-16 19:58] VITALS: BP 115/69
[2022-03-16] MEDS: Gabapentin 300 MG CAP 900 MG PO (20:01)
[2022-03-16] MEDS: Mirtazapine 15 MG TAB PO (21:19)
[2022-03-16] MEDS: Melatonin 3 MG TAB 9 MG PO (21:19)
[2022-03-16 23:40] VITALS: BP 115/65; PULSE 50; RESP 16; TEMP 36.7; O2SAT 98
[2022-03-17 08:20] VITALS: BP 114/69; PULSE 54; RESP 16; TEMP 36.7; O2SAT 95
[2022-03-17 10:22] VITALS: BP 108/67; PULSE 58; RESP 16; TEMP 36.1; O2SAT 94
[2022-03-17] MEDS: Escitalopram 10 MG TAB PO (10:30)
[2022-03-17] MEDS: Enoxaparin 40 MG/0.4 ML SYR SC (10:30)
[2022-03-17] MEDS: Aspirin 81 MG CHEW PO (10:30)
[2022-03-17] MEDS: Multivitamin TAB 1 TAB PO (10:31)
[2022-03-17] MEDS: Omega-3 Fatty Acids 1000 MG CAP PO (10:31)
[2022-03-17] MEDS: Fexofenadine 180 MG TAB PO (10:31)
[2022-03-17] MEDS: Cyanocobalamin 500 MCG TAB 1000 MCG PO (10:33)
[2022-03-17] MEDS: Cholecalciferol (Vitamin D3) 1,000 UNIT TAB 1000 UNITS PO (10:33)
[2022-03-17] MEDS: Midodrine 2.5 MG TAB 10 MG PO ×3 (10:33→21:00)
[2022-03-17] MEDS: Fludrocortisone 0.1 MG TAB PO ×2 (10:34→21:49)
[2022-03-17] MEDS: Memantine 5 MG TAB 10 MG PO ×2 (10:34→21:51)
[2022-03-17] MEDS: Normal Saline Flush 10 ML SYR IVP ×2 (10:35→21:51)
--- NOTE | 2022-03-17 12:36 | PT.INTREAT ---
Date of service: 03/17/22 Time of Service: 09:00 PT Notes Visit Reasons: Orthostatic Hypotension Inpatient Physical Therapy Treatment Note [facility] Date: 03/17/2022 PRECAUTIONS: Fall. Standard. Activity as tolerated. SUBJECTIVE: Stated she was feeling very tired after I left her earlier in morning, following her ther exercises only. Had waited to perform ambulation until later in morning due to BP readings being low earlier. Patient requested I come back before lunch to try walking, if BP readings were improved. Stated she really enjoys walking. I did return right before lunch and BP was improved. Patient did want to walk but indicated she was not feeling as good today as she was yesterday. OBJECTIVE: PAIN: No complaints of pain offered. BED MOBILITY/TRANSFERS Up in chair when I arrived at 9:00 and 11:55 am Sit-stand: SBA Stand-sit: SBA THEREX: Due to low BP readings at 9:00 am she performed ther exercises only including LAQs, ankle pumps, UE punch ups, UE bicep curls, SLRs and heel slides for 10 to 15 reps each. Did try standing marching for 10 reps also. VITALS: Before ther exercises seated 96/60 with HR of 77 b/m with right UE, standing 86/53 with HR of 77 b/m with right UE, seated post ther exercises was 107/63 with left UE GAIT - Performed at 11:55 am Assistive Device: wheeled walker with seat Weight bearing: full Assist: CGA-SBA Distance: 250ft VITALS: Before ambulation in sitting 138/73 with HR of 63 b/m with right UE, in standing 119/65 with HR of 63 b/m with right UE, post ambulation in sitting 160/84 with left UE BP readings were reviewed with nursing and it was noted that she did not have her BP meds until 10 am so this maybe the reason for low readings earlier in the morning. ASSESSMENT: Tolerated ther exercises and ambulation fair but did indicate she just was not feeling as well today, more dizziness with standing and just not feeling as good post ther exercises today. PLAN: Continue with current POC, with focus on improved functional mobility with ADL activities. Continue to monitor vitals with ther exercises and ambulation. TREATMENT CODE/TIME: 27114 and 51959, 9:00 to 9:17 am (17 minutes) and 11:55 to 12:10 (15')
[2022-03-17 14:27] VITALS: BP 122/70; PULSE 53; RESP 16; TEMP 36.6; O2SAT 94
[2022-03-17 15:29] VITALS: BP 155/75; PULSE 55; RESP 16; TEMP 36.6; O2SAT 96
[2022-03-17] MEDS: Docusate Sodium 100 MG CAP PO (21:47)
[2022-03-17] MEDS: Ibuprofen 400 MG TAB PO (21:48)
[2022-03-17] MEDS: Melatonin 3 MG TAB 9 MG PO (21:48)
[2022-03-17] MEDS: Gabapentin 300 MG CAP 900 MG PO (21:50)
[2022-03-17] MEDS: Acetaminophen 325 MG TAB PO (21:56)
[2022-03-18 00:29] VITALS: BP 150/71; PULSE 54; RESP 16; TEMP 36; O2SAT 97
[2022-03-18 07:45] VITALS: BP 139/69; PULSE 63; RESP 16; TEMP 36.4; O2SAT 96
[2022-03-18] MEDS: Enoxaparin 40 MG/0.4 ML SYR SC (08:53)
[2022-03-18] MEDS: Fexofenadine 180 MG TAB PO (08:54)
[2022-03-18] MEDS: Omega-3 Fatty Acids 1000 MG CAP PO (08:54)
[2022-03-18] MEDS: Acetaminophen 325 MG TAB PO ×3 (08:54→23:43)
[2022-03-18] MEDS: Memantine 5 MG TAB 10 MG PO ×2 (08:54→19:29)
[2022-03-18] MEDS: Normal Saline Flush 10 ML SYR IVP (08:54)
[2022-03-18] MEDS: Docusate Sodium 100 MG CAP PO ×2 (08:54→19:30)
[2022-03-18] MEDS: Aspirin 81 MG CHEW PO (08:54)
[2022-03-18] MEDS: Mirtazapine 15 MG TAB PO (08:56)
[2022-03-18] MEDS: Cholecalciferol (Vitamin D3) 1,000 UNIT TAB 1000 UNITS PO (08:56)
[2022-03-18] MEDS: Fludrocortisone 0.1 MG TAB PO ×2 (08:56→19:30)
[2022-03-18] MEDS: Multivitamin TAB 1 TAB PO (08:56)
[2022-03-18] MEDS: Cyanocobalamin 500 MCG TAB 1000 MCG PO (08:56)
[2022-03-18] MEDS: Escitalopram 10 MG TAB PO (08:56)
[2022-03-18] MEDS: Midodrine 2.5 MG TAB 10 MG PO ×3 (08:56→19:29)
--- NOTE | 2022-03-18 10:57 | CMPROGNOTE_ITS ---
- If Service Date Differs Date of service: 03/18/22 Time of Service: 10:57 Care Management Progress Note S/O: Hoda was accepted to [facility], but declined the offer this morning since they have Covid. CM sent a SNF referral to the [facility] at patients request. A: 81 uear old female admitted to [facility] on 03/14/22 for continued rehab prior to returning home. P: oHda transitioned to [facility] status on 03/14/22 while waiting to discharge to SNF for STR prior to returning home. SNF referral is pending at the [facility]. [facility] offered her a bed, with the understanding that they have Covid in their facility: patient declined offer.
--- NOTE | 2022-03-18 10:57 | PDOC.CMPRO ---
- If Service Date Differs Date of service: 03/18/22 Time of Service: 10:57 Care Management Progress Note S/O: Hoda was accepted to [facility], but declined the offer this morning since they have Covid. CM sent a SNF referral to the [facility] at patients request. A: 81 uear old female admitted to [facility] on 03/14/22 for continued rehab prior to returning home. P: Hoda transitioned to [facility] status on 03/14/22 while waiting to discharge to SNF for STR prior to returning home. SNF referral is pending at the [facility]. [facility] offered her a bed, with the understanding that they have Covid in their facility: patient declined offer.
[2022-03-18 13:37] VITALS: BP 131/75
[2022-03-18] MEDS: Milk of Magnesia 30 ML CUP PO (13:38)
--- NOTE | 2022-03-18 15:16 | PTTR_ITS ---
Date of service: 03/18/22 Time of Service: 11:38 PT Notes Visit Reasons: Orthostatic Hypotension Inpatient Physical Therapy Treatment Note [facility] Date: 03/18/2022 PRECAUTIONS: Fall, monitor orthostatic BPs SUBJECTIVE: Hoda is pleasant and agreeable to participating in PT. She asks about attempting to walk without an assitive device. She states that she would like to discharge to a SNF-level rehab prior to returning to home for continued strengthening. In a.m., patient reports that she is very tired. OBJECTIVE: PAIN: No c/o pain BED MOBILITY/TRANSFERS Sit-stand: SBA Stand-sit: SBA GAIT Assistive Device: 4WW in a.m.; No AD in p.m. Weight bearing: Full Assist: SBA in a.m.; CGA (with intermittent INSTRUMENTAL MUSIC TEACHER) in p.m. Distance: 400' in a.m.; 700' in p.m. Deviation: Slight unsteadiness improving with distance, improved pacing, B knee flexion and genu valgum with use of 4WW. TOILETING: Patient toileted with SBA for transfers STAIR TRAINING: Up/down 3x4 and 2x6 using B rails and a step-to pattern with SBA ASSESSMENT: Patient tolerated a progression in gait distance without assistive device support, demonstrating slight unsteadiness and slow pacing, both of which improved with increased distance. She demonstrates improved posture and gait mechanics without assistive device support as well. PLAN: Continue with gait training with least restrictive device, as well as general conditioning. TREATMENT CODE/TIME: Session 1: 24 minutes; 84843 x2 (11:38) Session 2: 15 minutes; 27134 (14:45)
[2022-03-18 16:09] VITALS: BP 145/75; PULSE 56; RESP 16; TEMP 36.3; O2SAT 96
[2022-03-18] MEDS: Gabapentin 300 MG CAP 900 MG PO (19:29)
[2022-03-18] MEDS: Ibuprofen 400 MG TAB PO (21:26)
[2022-03-18] MEDS: Melatonin 3 MG TAB 9 MG PO (21:27)
[2022-03-18 23:34] VITALS: BP 140/70; PULSE 56; RESP 16; TEMP 36.6; O2SAT 96
[2022-03-19 07:10] VITALS: BP 119/71; PULSE 51; RESP 16; TEMP 36.5; O2SAT 97
[2022-03-19] MEDS: Fexofenadine 180 MG TAB PO (08:30)
[2022-03-19] MEDS: Cholecalciferol (Vitamin D3) 1,000 UNIT TAB 1000 UNITS PO (08:30)
[2022-03-19] MEDS: Mirtazapine 15 MG TAB PO (08:30)
[2022-03-19] MEDS: Multivitamin TAB 1 TAB PO (08:30)
[2022-03-19] MEDS: Escitalopram 10 MG TAB PO (08:30)
[2022-03-19] MEDS: Omega-3 Fatty Acids 1000 MG CAP PO (08:30)
[2022-03-19] MEDS: Fludrocortisone 0.1 MG TAB PO (08:30)
[2022-03-19] MEDS: Memantine 5 MG TAB 10 MG PO (08:30)
[2022-03-19] MEDS: Docusate Sodium 100 MG CAP PO (08:31)
[2022-03-19] MEDS: Midodrine 2.5 MG TAB 10 MG PO ×2 (08:31→13:34)
[2022-03-19] MEDS: Enoxaparin 40 MG/0.4 ML SYR SC (08:31)
[2022-03-19] MEDS: Cyanocobalamin 500 MCG TAB 1000 MCG PO (08:31)
[2022-03-19] MEDS: Aspirin 81 MG CHEW PO (08:31)
--- NOTE | 2022-03-19 11:54 | PT.INTREAT ---
PT Notes Visit Reasons: Orthostatic Hypotension Inpatient Physical Therapy Treatment Note [facility] Date: 03/19/22 SUBJECTIVE: Hoda states that she is doing much better. Feels stronger. Indicated that she could go home at this point vs going to SNF. OBJECTIVE: [] BED MOBILITY/TRANSFERS pt seated in recliner Sit-stand: S Stand-sit: S GAIT Assistive Device: none Weight bearing: full Assist: SBA/S Distance: approx 700' in am, 550' in pm Deviation: 1 seated rest after performing 620' and stair negotiation. THEREX: performed a global LE strength and stabilization routine while seated in chair including LAQ, hip flex, sit to stand, HR in am in pm performed high knee marching, side stepping and bkwd walking 15'x2 ea. HR x12. Sit to stand x6. STAIRS: ascended/descended clinic steps (3, 4 steps and 2, 6 steps) x2 with 2 rails and SBA in am TOILETED/ SELF CARE: independent. She was able to wash self and dress independently, as well as stand at sink to brush teeth independently. ASSESSMENT: tolerated session well. No c/o lightheadedness, dizziness, fatigue or SOB. No noted LOB, path deviations or safety issues. I feel she could go home with HH services at this point. PLAN: will continue per PT POC TREATMENT CODE/TIME: 30 min in am, 25 min pm [id number], [id number]
--- NOTE | 2022-03-19 11:57 | PDOC.HHF2F ---
Home Health Certification Home Health Certification: 1. Encounter Date and Reason I certify that Hoda Peoples was seen by Kenzie Vazquez on 03/19/22 and that I had a [id number] encounter with this patient that meets the physician face to face encounter requirements. 2. Clinical Findings Supporting Skilled Need and Homebound Status I certify that home health services are medically necessary, include either intermittent retirement and/or physical/speech therapy, and that this patient is homebound in that absences from the home require considerable and taxing effort and are infrequent or of short duration, or are attributable to the need to receive medical care. [X] (a) Attached documentation from encounter provides clinical findings supporting skilled need and homebound status (including what assistance patient requires to leave the home). The encounter with the patient was in whole, or in part, for the following medical condition, which is the primary reason for home health care: Orthostatic Hypotension Detention: assess for ongoing orthostatic hypotension or unsteady vitals signs, assess compliance with medication and instruct on changed medication Physical Therapy: home safety evaluation, fall reduction program, evaluate ability to ambulate independently and safely, METAL INSPECTOR: routine oversight and evaluation of community resources and [place] [facility] planning Homebound: patient unable to safely leave the house unattended d/t decreased strength and endurance and fall risk d/t symptomatic orthostatic hypotension 3. Certification and Authentication I certify that I composed the above information based on my clinical judgment relating to this patient's medical condition and, if applicable, clinical findings communicated to me by the NPP or inpatient physician who performed the Home Health Referral. All further orders will be obtained through _ROBERT ALBERT MD_(Community Based Physician - PCP)
--- NOTE | 2022-03-19 12:04 | W.PM.DS.N ---
Date of service: 03/19/22 Time of Service: 12:05 DS: Diagnosis Discharge Diagnosis (1) Orthostatic hypotension: Status: Chronic (2) Sinus bradycardia: Status: Acute (3) Alzheimer's dementia: Status: Chronic (4) Anxiety with depression: Status: Acute (5) Restless leg syndrome: Status: Acute Discharge Plan Disposition Patient Disposition: HOME W/HOME HEALTH SERVICE Condition: Stable Discharge Details Reason For Visit: Orthostatic Hypotension Admit Date/Time: 03/14/22 15:47 Admit Provider: Mitchell Cobb Attending Provider: Mitchell Cobb Primary Care Provider: Shawna Couch V Hospital Course Hospital Course: This is a 89-year-old female with a history of orthostatic hypotension, Alzheimer's dementia, anxiety disorder, restless leg syndrome, PSVT, presented to the emergency department on 03/07/2022 with complaints of worsening dizziness which she feels like she is going to pass out.? This is been going on for last few days prior to admission.? She has had previous problems with orthostatic lightheadedness recurrent episodes or worse than usual and she has felt like she is going to pass out.? Previously she would get lightheaded when she would bend over and stand up quickly but for the last 3 days prior to admission she was experiencing episodes in which she feels like she is going to pass out.? In the emergency department she was found to be orthostatic without any cardiac arrhythmias.? She was admitted to the hospital to evaluate for vertigo versus orthostatic hypotension versus arrhythmias versus anxiety disorder.? During her hospital stay she was noted to have significant orthostatic hypotension which she would drop her blood pressure down into the 60s and 70s.? monitoring analyst was maintained throughout her hospital stay and she never had any PSVT throughout her hospital stay but exhibited significant bradycardia with heart rates as low as 35 bpm and during her orthostatic hypotension she had a blunted chronotropic response.? She was trialed on midodrine 10 mg 3 times daily but after couple days when there was no improvement her midodrine was discontinued.? She was started on fludrocortisone 0.1 mg daily which did not significantly improve her orthostasis but when fludrocortisone was increased up to 0.1 mg TID and midodrine was resumed to 10 mg tid she began to demonstrate improvement. However she was having leg edema and therefore her fludrocortisone was decreased to 0.1 mg bid. Her rivastigmine patch which was prescribed for her dementia was withheld to see if this made any improvement in her bradycardia and it did not therefore it was resumed at her request, scheduled every 48 hours. P.T. was consulted and worked with her on her gait and balance. She was tolerating ambulation with a front wheeled walker. Referrals were placed to [facility] and she was accepted there but bed was not immediately available so she was put on swing bed status here. Her symptoms are now resolved and she is safely re-ambulated with no drop in blood pressure or symptoms. PT recommendations are now for discharge to home with home health servcies. Cardiology consult was requested to evaluate her bradycardia to see if she was a candidate for a pacemaker but this was not available so will be arranged outpatient. Patient will be set up with a cardiac event recorder as an outpatient and an outpatient referral to cardiology will be made upon discharge. discussed with Dr Bowling [place] Meds and New Rx's Prescriptions: New midodrine 10 mg tablet 10 mg PO TID Qty: 90 0RF Rx Instructions: do not give last dose of day after 6PM or within 4 hrs of bedtime fexofenadine 180 mg Tablet 180 mg PO DAILY Qty: 30 0RF fludrocortisone 0.1 mg Tablet 0.1 mg PO BID Qty: 60 0RF eszopiclone [Lunesta] 2 mg Tablet 1 mg PO HS Qty: 60 0RF Continued mirtazapine 30 mg tablet 15 mg PO DAILY memantine 10 mg tablet 10 mg PO BID Qty: 180 3RF escitalopram oxalate 10 mg tablet 10 mg PO DAILY Qty: 30 1RF cyanocobalamin (vitamin B-12) 1,000 mcg capsule 1,000 mcg PO DAILY cholecalciferol (vitamin D3) 25 mcg (1,000 unit) capsule 25 mcg PO DAILY diclofenac sodium [Voltaren] 1 % gel 2 g topical BID PRN Rx Instructions: apply to single elbow, wrist or hand; for hand includes palm/fingers/back of hand aspirin [Aspirin Low-Strength] 81 MG tablet,chewable 81 mg PO DAILY Centrum Silver 1 EACH tablet 1 tab PO DAILY Fish Oil 1 EACH capsule 1 cap PO DAILY Changed gabapentin 300 mg capsule 900 mg PO QHS Qty: 0 0RF rivastigmine [Exelon Patch] 4.6 mg/24 hr patch 24 hour 4.6 mg TD Q48H Qty: 0 0RF Discontinued ropinirole 0.5 mg tablet 0.5 mg PO DAILY No Action Gas-X 62.5 mg strip 1 strip PO DIRECTED PRN hawthorn 500 mg capsule 1 mg PO DAILY clobetasol 0.05 % cream 1 applic topical BID estradiol [Estrace] 0.01 % (0.1 mg/gram) cream 1 g vaginal .1-3 times a week Discharge Instructions Instructions: Hypotension (DC) Stand Alone Forms: Nursing Discharge Form Referrals: Shawna Couch MD [Primary Care Provider] - 04/01/22 12:45 pm Carmen Maynard MD [[facility] STAFF PHYSICIAN] - Activity:: Activity as Tolerated Equipment/Supplies:: No Equipment Needed Diet:: As Tolerated Discharge Orders Discharge Orders: Discharge Order (Routine); Ordered 03/19/22 Ordered By: Kenzie Vazquez Other Ambulatory Orders: Cardiac Event Recorder (Routine) Timeframe: [id number] Facility: [facility] - Location: Respiratory Therapy Ordered By: Kenzie Vazquez Discharge Data Discharge Date/Time-TO BE ENTERED AT DEPARTURE: 03/19/22 16:00 DS: Summary Time Spent with Patient providing and/or coordinating discharge services: Greater than 30 minutes Status at Discharge Functional status at discharge: uses cane/walker Overall status at discharge: patient is progressing back to baseline Mental Status: mental status grossly normal Speech and Movement: speech and movement normal Mood: congruent mood Affect: normal affect Exam Const General: cooperative and no acute distress Nutritional Appearance: average body habitus Orientation: alert and oriented x3 Eyes General: appearance normal, both eyes and all related structures Sclera: sclerae normal Resp Effort & Inspection: normal respiratory effort Auscultation: clear to auscultation bilaterally Cardio Rate: regular rate Rhythm: regular rhythm Neuro General: no focal motor deficits Cranial Nerves: facial strength normal Speech: speech normal Gait: normal gait Psych Appearance: grossly normal Mental Status: mental status grossly normal Speech and Movement: speech and movement normal Mood: congruent mood Affect: normal affect DS: Data Vitals/I&O Vitals and I&O: Vital Signs Temperature 36.5 C 03/19/22 07:10 Temperature Source Tympanic 03/19/22 07:10 Pulse 51 L 03/19/22 07:10 Pulse Rhythm Regular 03/19/22 08:30 Respiratory Rate 16 03/19/22 07:10 Respiratory Effort Non-Labored 03/19/22 08:30 Respiratory Depth Normal 03/19/22 08:30 Respiratory Pattern Normal 03/19/22 08:30 Blood Pressure 119/71 03/19/22 07:10 Pulse Oximetry 97 03/19/22 07:10 Oxygen Delivery Method Room Air 03/19/22 07:10 Oxygen Flow Rate 0 03/19/22 07:10 Pain Level 5 03/19/22 07:10 Intake & Output 03/18/22 03/19/22 03/19/22 23:59 11:59 23:59 Intake Total 240 / 490 240 / 240 Output Total 1300 / 2100 1350 / 1350 Balance -1060 / -1610 -1110 / -1110 Weight 73.6 kg Intake: Oral 240 / 480 240 / 240 Output: Urine 1300 / 2100 1350 / 1350 Other: Urine Color Yellow Yellow Urine Appearance Clear Clear Urine Odor None None Comment unmeasurable, mixed w/ stool pt was also a little bit incontinent at this time Stool Size Small Stool Characteristics Soft Voiding Methods Bedside Commode Toilet PFSH All Active Problems (Updated 03/15/22 @ 00:01 by EMILIE WILSON) Sinus bradycardia (Acute) Dizziness (Acute) Pre-syncope (Acute) Lack of motivation (Acute) Impacted cerumen, bilateral (Acute) Alzheimer's dementia (Chronic) very mild Anxiety with depression (Acute) Health care proxy on file (Chronic) Nahomi Breaux, daughter POL (Physician Orders for Life-Sustaining Treatment) (Chronic) signed 01/22/21 FULL CODE Insomnia (Acute) MCI (mild cognitive impairment) (Acute) Goals of care, counseling/discussion (Acute) Palliative care patient (Acute) Anxiety about health (Acute) Dyspnea (Acute) Urticaria, chronic (Chronic) Restless leg syndrome (Acute) Normal colonoscopy (Acute) Mild chronic gastritis (Chronic) Idiopathic peripheral neuropathy (Acute) Idiopathic peripheral autonomic neuropathy (Acute) Memory loss (Acute) Abrasion of face (Acute) Facial contusion (Acute) 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 (Acute) Conductive hearing loss, external ear (Acute) Sensorineural hearing loss of both ears (Acute) Dysphagia (Acute) Dyspnea on exertion (Acute) Orthostatic hypotension (Chronic) Medical History Allergic rhinitis Bilateral leg pain Bilateral leg weakness Cold feet Dementia mild Dizziness Fatigue Frequent PVCs Gastritis Hearing loss Hives Hx of bronchitis Hx of migraines Iliotibial band friction syndrome of both knees Ingrown toenail Insect bite Knee joint pain Lung nodule Migraine Myalgia Nail abnormality Obstructive sleep apnea Onychomycosis Osteoporosis Pain in left shoulder Palpitations Pelvic floor instability Peripheral neuropathy Raynauds syndrome Tubular adenoma Surgical History H/O foot surgery r foot surgerly H/O knee surgery L knee surgery-patella History of colonoscopy Hx of tonsillectomy Family History Mother , age 86 from dementia with hallucinations ? lewy body Dementia Father , age 89 from prostate cancer and malnutrition Prostate cancer Malnutrition Sister , age 80 from dementia, unspecified type Dementia Daughter No problems noted. Son No problems noted. 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
--- NOTE | 2022-03-19 13:33 | PDOC.CMDIS ---
- If Service Date Differs Date of service: 03/19/22 Time of Service: 13:33 LACE Index Scoring Tool - Questions: Length of Stay (in days): 7 - 13 Acuity (Admit via E.D.?): Yes Comorbidities: Dementia E.D. Visits: 1 - Answers: Total Score: 12 Risk of Readmission: High Risk Care Management Discharge Reason for Hospitalization: Orthostatic Hypotension Discharge Plan: Hoda is discharged home via private vehicle with daughter. New [facility] RN/PT/OT/RESIDENTIAL AIR SEALING TECHNICIAN services are ordered. New RX's are transmitted to [facility], per pt request. Hoda will follow up with her PCP 04/01/22 as scheduled and the office of Palliative Care PRN. Patient/Family Education Needs: Review discharge instructions, limitations, medications and plan to follow up with community providers. Review ask me three. Services Needed at Discharge: Home Health Care Services (New [facility] RN/PT/OT/RESIDENTIAL AIR SEALING TECHNICIAN. CM notified [facility]. Face to face completed.)
== END 2022-03-19 16:00 | disposition home health service (06) | DRG 312 ==
PROVIDERS: Admitting Provider Internal Medicine; PCP Family Medicine; Visit Provider Internal Medicine
DX: I95.1 Orthostatic hypotension (principal); I47.1 Supraventricular tachycardia; R00.1 Bradycardia, unspecified; G30.9 Alzheimer's disease, unspecified; F02.80 Dementia in other diseases classified elsewhere, unspecified severity, without behavioral disturbance, psychotic disturbance, mood disturbance, and anxiety; F41.8 Other specified anxiety disorders; G25.81 Restless legs syndrome; G47.00 Insomnia, unspecified; K29.50 Unspecified chronic gastritis without bleeding; G60.8 Other hereditary and idiopathic neuropathies; H90.6 Mixed conductive and sensorineural hearing loss, bilateral
CPT/HCPCS: 36415; 97110; 97162; 97530; 99305; 99316; J1650; 85049

== ENCOUNTER 2022-04-11 21:08 | Outpatient (REF) | payer MEDICARE, SELFPAY ==
[2022-04-11 20:21] LABS: BUN 19 mg/dL (7-18); CREATININE 0.9 mg/dL (0.55-1.02); Calcium 9.4 mg/dL (8.5-10.1); Chloride 101 mmol/L (98-107); Estimated GFR 64.63 (mL/min/1.73m2); Glucose 98 mg/dL (74-106); Potassium 4.4 mmol/L (3.5-5.1); Sodium 137 mmol/L (136-145)
== END 2022-04-11 21:09 | disposition home or self-care (01) ==
LOC: NCHCN 21:08
PROVIDERS: PCP Family Medicine; Visit Provider Nurse Practitioner Family
DX: R42 Dizziness and giddiness (principal)
CPT/HCPCS: 80048

== ENCOUNTER 2022-05-02 15:31 | Emergency (ER) | payer MEDICARE, SELFPAY ==
[2022-05-02 15:44] VITALS: BP 157/61; PULSE 50; RESP 20; TEMP 36.4; O2SAT 98
--- NOTE | 2022-05-02 15:45 | RT.EKG_ITS ---
APPROVED REPORT Exam: Resting ECG Reason for Exam: CHEST PAIN Patient Location: E HR:47 bpm ECG Measurements Heart Rate 47 AXIS MD 153 P 50 QRSd 89 QRS 4 QT 517 T 27 QTc 457 Conclusion Sinus bradycardia...rate< 60 Consider anteroseptal infarct...Q >30mS, dimin R, V1-V2
[2022-05-02 16:50] LABS: Abs Immature Grans 0.03 10^3/uL (0.0-0.06); Absolute Basophil Count 0.05 10^3/uL (0.0-0.2); Absolute Eosinophil Count 0.16 10^3/uL (0.0-0.7); Absolute Lymphocyte Count 2.71 10^3/uL (1.2-3.4); Absolute Monocyte Count 0.62 10^3/uL (0.1-0.8); Absolute Neutrophil Count 3.49 10^3/uL (1.2-6.7); Basophils % 0.7; Eosinophils % 2.3; HCT 40.3 % (36.0-46.0); HGB 13.9 g/dL (11.2-15.7); Immature Grans % 0.4; Lymphocytes % 38.4; MCH 30.6 pg (27.0-33.0); MCHC 34.5 % (32.0-36.0); MCV 89 fL (80-95); MPV 9.6 fL (8.0-11.0); Monocytes % 8.8; Neutrophils % 49.4; Platelet Count 165 10^3/uL (130-400); RBC 4.54 10^6/uL (3.93-5.22); RDW 12.8 % (11.7-14.6); RDW-SD 41.6 fL; WBC 7.06 10^3/uL (4.4-10.8)
[2022-05-02] MEDS: Normal Saline 1,000 ML 1000 ML IV (16:53)
[2022-05-02 17:08] VITALS: RESP 18
[2022-05-02 17:14] LABS: Magnesium 2.2 mg/dL (1.8-2.4); TSH (W/Ref FT4) 2.68 uIU/mL (0.36-3.74)
[2022-05-02 17:16] LABS: ALT 37 U/L (14-59); AST 25 U/L (15-37); Albumin 3.7 g/dL (3.4-5.0); Alkaline Phosphatase 52 U/L (46-116); Anion Gap 6.1 mmol/L (3-11); BUN 23 mg/dL (7-18); Bilirubin, Total 0.2 mg/dL (0.2-1.0); CO2 30.9 mmol/L (21.0-32.0); CREATININE 0.9 mg/dL (0.55-1.02); Chloride 100 mmol/L (98-107); Estimated GFR 64.63 (mL/min/1.73m2); Glucose 94 mg/dL (74-106); Potassium 3.9 mmol/L (3.5-5.1); Sodium 137 mmol/L (136-145); Total Protein 7.4 g/dL (6.4-8.2); Troponin I < 50 ng/L (<or=60)
[2022-05-02 17:18] LABS: Bilirubin Negative (Negative); Blood Negative (Negative); Clarity Clear (Clear); Glucose Negative (Negative); Ketones Negative (Negative); Leukocyte Esterase Moderate (Negative); Nitrite Negative (Negative); Specific Gravity 1.015 (1.005-1.025); Urobilinogen 0.2 EU/dL (Up TO 0.2); pH 6.5 (5-8)
[2022-05-02 17:26] LABS: Epithelial Cells Rare HPF (Negative); RBC 0-2 HPF (0-2)
[2022-05-02 17:27] LABS: Bacteria Negative HPF (Negative); C & S Indicated? No; Casts Negative LPF (Negative); Crystals Negative HPF (Negative); Mucus Negative (Negative); Other Cells Few Renal (Negative)
[2022-05-02] MEDS: LORazepam 1 MG TAB PO (17:35)
--- NOTE | 2022-05-02 18:04 | ED.GENADUL_ITS ---
Discharge Plan Disposition Patient Disposition: HOME Condition: Stable Discharge Details Clinical Impression: Fatigue, Malaise Primary Care Provider: Shawna Couch V ED Provider: Annabella Saleh Home Meds and New Rx's Prescriptions: Continued mirtazapine 30 mg tablet 15 mg PO DAILY memantine 10 mg tablet 10 mg PO BID Qty: 180 3RF prednisone PO DIRECTED escitalopram oxalate 10 mg tablet 10 mg PO DAILY Qty: 30 1RF gabapentin 600 mg tablet 600 mg PO QHS Gas-X 62.5 mg strip 1 strip PO DIRECTED PRN hawthorn 500 mg capsule 1 mg PO DAILY cyanocobalamin (vitamin B-12) 1,000 mcg capsule 1,000 mcg PO DAILY clobetasol 0.05 % cream 1 applic topical BID cholecalciferol (vitamin D3) 25 mcg (1,000 unit) capsule 25 mcg PO DAILY diclofenac sodium [Voltaren] 1 % gel 2 g topical BID PRN Rx Instructions: apply to single elbow, wrist or hand; for hand includes palm/fingers/back of hand aspirin [Aspirin Low-Strength] 81 MG tablet,chewable 81 mg PO DAILY Centrum Silver 1 EACH tablet 1 tab PO DAILY Fish Oil 1 EACH capsule 1 cap PO DAILY midodrine 10 mg tablet 10 mg PO TID Qty: 90 0RF Rx Instructions: do not give last dose of day after 6PM or within 4 hrs of bedtime fexofenadine 180 mg Tablet 180 mg PO DAILY Qty: 30 0RF fludrocortisone 0.1 mg Tablet 0.1 mg PO BID Qty: 60 0RF gabapentin 300 mg capsule 900 mg PO QHS Qty: 0 0RF rivastigmine [Exelon Patch] 4.6 mg/24 hr patch 24 hour 4.6 mg TD Q48H Qty: 0 0RF Discharge Instructions Instructions: Fatigue (ED) Additional Instructions: Please follow-up with your primary care physician Your tests today are reassuring Please return should you have new or worsening complaints Referrals: Shawna Couch MD [Primary Care Provider] - 1 day Discharge Data Discharge Date/Time-TO BE ENTERED AT DEPARTURE: 05/02/22 18:43 Medical Decision Making Patient appears anxious, although she is resting comfortably in room, her vitals are stable, orthostatics negative, she is ambulatory with steady gait I see no clear indication to admit the patient to the hospital She discharged home in stable condition with stable vitals in care of her daughter, she will continue on her prescribed medications and return earlier should she have new or worsening complaints Medical Records Medical records reviewed: Yes I reviewed the patient's medical records. Lab Data Lab results reviewed: Yes I reviewed the patient's lab results. ECG Data Prior ECG tracings: available for review HPI General Date/Time Provider Initiated Documentation: 05/02/22 16:13 . HPI Narrative: This 81-year-old female presents with fatigue and weakness which have been ongoing for the past several months but worse today. Patient was recently admitted for orthostatic hypotension but that she was discharged home and has been feeling slightly improved. She does take care of her who is unfortunately in ill health. She denies any shortness of breath or chest pain. She denies any fever or chills. She denies any falls or injuries. She denies known depression or anxiety but daughter states she feels as though her mother is very anxious. She denies any attempts to harm self. She denies any new medications. She denies any urinary complaints. Related Data Home Medications Medication Instructions Recorded Confirmed aspirin 81 mg chewable tablet 81 mg PO DAILY 12/12/14 05/02/22 (Aspirin Low-Strength) icnkaikw-[id number] acid 0.4 1 tab PO DAILY 12/12/14 05/02/22 mg-lycopene 300 mcg-lutein 250 mcg tablet (Centrum Silver) omega-3 fatty acids-fish oil 340 1 cap PO DAILY 08/02/17 05/02/22 mg-1,000 mg capsule (Fish Oil) simethicone 62.5 mg oral strips 1 strip PO DIRECTED PRN 07/18/19 05/02/22 (Gas-X) cholecalciferol (vitamin D3) 25 25 mcg PO DAILY 01/09/21 05/02/22 mcg (1,000 unit) capsule clobetasol 0.05 % topical cream 1 applic topical BID 01/09/21 05/02/22 cyanocobalamin (vitamin B-12) 1,000 mcg PO DAILY 01/09/21 05/02/22 1,000 mcg capsule diclofenac sodium 1 % topical gel 2 g topical BID PRN 01/09/21 05/02/22 (Voltaren) hawthorn 500 mg capsule 1 mg PO DAILY 01/09/21 05/02/22 memantine 10 mg tablet 10 mg PO BID #180 tabs 09/10/21 05/02/22 mirtazapine 30 mg tablet 15 mg PO DAILY 09/10/21 05/02/22 escitalopram oxalate 10 mg tablet 10 mg PO DAILY #30 tabs 01/20/22 05/02/22 fexofenadine 180 mg tablet 180 mg PO DAILY #30 tabs 03/19/22 05/02/22 fludrocortisone 0.1 mg tablet 0.1 mg PO BID #60 tabs 03/19/22 05/02/22 gabapentin 300 mg capsule 900 mg PO QHS #0 caps 03/19/22 05/02/22 midodrine 10 mg tablet 10 mg PO TID #90 tabs 03/19/22 05/02/22 rivastigmine 4.6 mg/24 hour 4.6 mg transdermal Q48H #0 ea 03/19/22 05/02/22 transdermal patch (Exelon Patch) gabapentin 600 mg tablet 600 mg PO QHS 04/02/22 05/02/22 prednisone PO DIRECTED 04/30/22 04/30/22 Previous Rx's Medication Instructions Recorded memantine 10 mg tablet 10 mg PO BID #180 tabs 09/10/21 escitalopram oxalate 10 mg tablet 10 mg PO DAILY #30 tabs 01/20/22 fexofenadine 180 mg tablet 180 mg PO DAILY #30 tabs 03/19/22 fludrocortisone 0.1 mg tablet 0.1 mg PO BID #60 tabs 03/19/22 gabapentin 300 mg capsule 900 mg PO QHS #0 caps 03/19/22 midodrine 10 mg tablet 10 mg PO TID #90 tabs 03/19/22 rivastigmine 4.6 mg/24 hour 4.6 mg transdermal Q48H #0 ea 03/19/22 transdermal patch (Exelon Patch) Allergies Allergy/AdvReac Type Severity Reaction Status Date / Time hydroxyzine Allergy Severe Pt states Verified 04/30/22 15:03 lips and eyes swell up cetirizine [From Zyrtec] Allergy Mild Verified 04/30/22 15:03 rivastigmine [From Exelon] Allergy Mild Nausea and Verified 04/30/22 15:03 rash sertraline Allergy Unknown Verified 04/30/22 15:03 donepezil HCl [From Aricept] AdvReac Mild Nausea Verified 04/30/22 15:03 General Stated Complaint: GenMedical KAILASH: 3 Review of Systems All systems reviewed & are unremarkable except as noted in HPI and below PFSH All Active Problems (Updated 05/02/22 @ 18:13 by CHINO Finch) Fatigue (Acute) Malaise (Acute) Sinus bradycardia (Acute) Dizziness (Acute) Pre-syncope (Acute) Lack of motivation (Acute) Impacted cerumen, bilateral (Acute) Alzheimer's dementia (Chronic) very mild Anxiety with depression (Acute) Health care proxy on file (Chronic) Nahomi Breaux, daughter SHAR (Physician Orders for Life-Sustaining Treatment) (Chronic) signed 01/22/21 FULL CODE Insomnia (Acute) MCI (mild cognitive impairment) (Acute) Goals of care, counseling/discussion (Acute) Palliative care patient (Acute) Anxiety about health (Acute) Dyspnea (Acute) Urticaria, chronic (Chronic) Restless leg syndrome (Acute) Normal colonoscopy (Acute) Mild chronic gastritis (Chronic) Idiopathic peripheral neuropathy (Acute) Idiopathic peripheral autonomic neuropathy (Acute) Memory loss (Acute) Abrasion of face (Acute) Facial contusion (Acute) 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 (Acute) Conductive hearing loss, external ear (Acute) Sensorineural hearing loss of both ears (Acute) Dysphagia (Acute) Dyspnea on exertion (Acute) Orthostatic hypotension (Chronic) Medical History Allergic rhinitis Bilateral leg pain Bilateral leg weakness Cold feet Dementia mild Dizziness Fatigue Frequent PVCs Gastritis Hearing loss Hives Hx of bronchitis Hx of migraines Iliotibial band friction syndrome of both knees Ingrown toenail Insect bite Knee joint pain Lung nodule Migraine Myalgia Nail abnormality Obstructive sleep apnea Onychomycosis Osteoporosis Pain in left shoulder Palpitations Paroxysmal SVT (supraventricular tachycardia) Pelvic floor instability Peripheral neuropathy Raynauds syndrome Tubular adenoma Surgical History H/O foot surgery r foot surgerly H/O knee surgery L knee surgery-patella History of colonoscopy Hx of tonsillectomy Family History Mother , age 86 from dementia with hallucinations ? lewy body Dementia Father , age 89 from prostate cancer and malnutrition Prostate cancer Malnutrition Sister , age 80 from dementia, unspecified type Dementia Daughter No problems noted. Son No problems noted. 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 Do you think of yourself as: straight/heterosexual Current gender identity: female What is your relationship status?: How often do you talk on the phone with friends or family?: three or more times per week How often do you get together with friends or relatives?: three or more times per week Panel score (0-1 are the most socially isolated patients): 2 What type of physical activity do you participate in: walking Duration: < 15 minutes/day Frequency: does not exercise Special antoinette needs: No Seatbelt use: always Do you feel safe at home: Yes Do you feel safe in your relationship?: Yes Exam Const General: cooperative, comfortable and no acute distress HENMT Other: moist Membranes Eyes Pupils: PERRL Resp Effort & Inspection: normal respiratory effort Cardio Rate: regular rate Rhythm: regular rhythm Skin General skin exam: no rashes or lesions noted Neuro General: patient alert and patient oriented x3 Cranial Nerves: CN's II-XI intact bilaterally and tongue midline Cognition: normal cognition Speech: speech normal Course Vital Signs Vital signs: Vital Signs Temperature 36.4 C 05/02/22 15:44 Pulse 50 L 05/02/22 15:44 Respiratory Rate 20 05/02/22 15:44 Blood Pressure 157/61 H 05/02/22 15:44 Pulse Oximetry 98 05/02/22 15:44 Temperature 36.4 C 05/02/22 15:44 Temperature Source Temporal Artery Scan 05/02/22 15:44 Pulse 50 L 05/02/22 15:44 Respiratory Rate 18 05/02/22 17:08 Respiratory Effort Non-Labored 05/02/22 17:08 Respiratory Depth Normal 05/02/22 17:08 Respiratory Pattern Normal 05/02/22 17:08 Blood Pressure 157/61 H 05/02/22 15:44 Blood Pressure Position Sitting 05/02/22 15:44 Pulse Oximetry 98 05/02/22 15:44 Oxygen Delivery Method Room Air 05/02/22 15:44 Oxygen Flow Rate 0 05/02/22 15:44 Pain Level 0 05/02/22 15:44 Lab/Test Results Lab/Test Results: Laboratory Tests Range/Units 05/02/22 05/02/22 05/02/22 16:40 16:40 16:40 WBC (4.4-10.8) 10^3/uL 7.06 RBC (3.93-5.22) 10^6/uL 4.54 Hgb (11.2-15.7) g/dL 13.9 Hct (36.0-46.0) % 40.3 MCV (80-95) fL 89 MCH (27.0-33.0) pg 30.6 MCHC (32.0-36.0) % 34.5 RDW (11.7-14.6) % 12.8 Plt Count (130-400) 10^3/uL 165 MPV (8.0-11.0) fL 9.6 Immature Gran % 0.4 Neutrophils % 49.4 Lymphocytes % 38.4 Monocytes % 8.8 Eosinophils % 2.3 Basophils % 0.7 Nucleated RBC % (0.0-0.3) % 0.0 Absolute Neutrophils (1.2-6.7) 10^3/uL 3.49 Absolute Lymphocytes (1.2-3.4) 10^3/uL 2.71 Absolute Monocytes (0.1-0.8) 10^3/uL 0.62 Absolute Eosinophils (0.0-0.7) 10^3/uL 0.16 Absolute Basophils (0.0-0.2) 10^3/uL 0.05 Sodium (136-145) mmol/L 137 Potassium (3.5-5.1) mmol/L 3.9 Chloride (98-107) mmol/L 100 Carbon Dioxide (21.0-32.0) mmol/L 30.9 Anion Gap (3-11) mmol/L 6.1 BUN (7-18) mg/dL 23 H Creatinine (0.55-1.02) mg/dL 0.9 Est GFR (CKD-EPI 2020) (mL/min/1.73m2) 64.63 Glucose (74-106) mg/dL 94 Calcium (8.5-10.1) mg/dL 9.0 Magnesium (1.8-2.4) mg/dL 2.2 Total Bilirubin (0.2-1.0) mg/dL 0.2 AST (15-37) U/L 25 ALT (14-59) U/L 37 Alkaline Phosphatase (46-116) U/L 52 Troponin I (<or=60) ng/L < 50 Total Protein (6.4-8.2) g/dL 7.4 Albumin (3.4-5.0) g/dL 3.7 TSH (0.36-3.74) uIU/mL 2.68 Urine Color (Yellow) Urine Clarity (Clear) Urine pH (5-8) Ur Specific [place] (1.005-1.025) Urine Protein (Negative) mg/dL Urine Ketones (Negative) mg/dL Urine Blood (Negative) Urine Nitrite (Negative) Urine Bilirubin (Negative) Urine Urobilinogen (Up TO 0.2) EU/dL Ur Leukocyte Esterase (Negative) Urine RBC (0-2) HPF Urine WBC (0-5) HPF Ur Epithelial Cells (Negative) HPF Urine Crystals (Negative) HPF Urine Bacteria (Negative) HPF Urine Casts (Negative) LPF Urine Mucus (Negative) Urine Other (Negative) Ur Culture Indicated? Urine Glucose (Negative) mg/dL Range/Units 05/02/22 17:01 WBC (4.4-10.8) 10^3/uL RBC (3.93-5.22) 10^6/uL Hgb (11.2-15.7) g/dL Hct (36.0-46.0) % MCV (80-95) fL MCH (27.0-33.0) pg MCHC (32.0-36.0) % RDW (11.7-14.6) % Plt Count (130-400) 10^3/uL MPV (8.0-11.0) fL Immature Gran % Neutrophils % Lymphocytes % Monocytes % Eosinophils % Basophils % Nucleated RBC % (0.0-0.3) % Absolute Neutrophils (1.2-6.7) 10^3/uL Absolute Lymphocytes (1.2-3.4) 10^3/uL Absolute Monocytes (0.1-0.8) 10^3/uL Absolute Eosinophils (0.0-0.7) 10^3/uL Absolute Basophils (0.0-0.2) 10^3/uL Sodium (136-145) mmol/L Potassium (3.5-5.1) mmol/L Chloride (98-107) mmol/L Carbon Dioxide (21.0-32.0) mmol/L Anion Gap (3-11) mmol/L BUN (7-18) mg/dL Creatinine (0.55-1.02) mg/dL Est GFR (CKD-EPI 2020) (mL/min/1.73m2) Glucose (74-106) mg/dL Calcium (8.5-10.1) mg/dL Magnesium (1.8-2.4) mg/dL Total Bilirubin (0.2-1.0) mg/dL AST (15-37) U/L ALT (14-59) U/L Alkaline Phosphatase (46-116) U/L Troponin I (<or=60) ng/L Total Protein (6.4-8.2) g/dL Albumin (3.4-5.0) g/dL TSH (0.36-3.74) uIU/mL Urine Color (Yellow) Yellow Urine Clarity (Clear) Clear Urine pH (5-8) 6.5 Ur Specific [place] (1.005-1.025) 1.015 Urine Protein (Negative) mg/dL Negative Urine Ketones (Negative) mg/dL Negative Urine Blood (Negative) Negative Urine Nitrite (Negative) Negative Urine Bilirubin (Negative) Negative Urine Urobilinogen (Up TO 0.2) EU/dL 0.2 Ur Leukocyte Esterase (Negative) Moderate H Urine RBC (0-2) HPF 0-2 Urine WBC (0-5) HPF 3-5 Ur Epithelial Cells (Negative) HPF Rare Urine Crystals (Negative) HPF Negative Urine Bacteria (Negative) HPF Negative Urine Casts (Negative) LPF Negative Urine Mucus (Negative) Negative Urine Other (Negative) Few Renal Ur Culture Indicated? No Urine Glucose (Negative) mg/dL Negative
[2022-05-02 18:43] VITALS: BP 143/55; PULSE 49; RESP 14; TEMP 36.1; O2SAT 100
== END 2022-05-02 18:43 | disposition home or self-care (01) ==
PROVIDERS: Emergency Medicine; Emergency Provider Physician Assistant; PCP Family Medicine
DX: R53.83 Other fatigue (principal); R53.81 Other malaise; Z79.82 Long term (current) use of aspirin
CPT/HCPCS: 36415; 80053; 93005; 96360; 99284; 81003; 81015; 83735; 84443; 84484; 85025; 93010

== ENCOUNTER 2022-05-12 15:24 | Outpatient (CLI) | payer MEDICARE, SELFPAY ==
--- NOTE | 2022-05-12 15:53 | W.CARDEVENT ---
Date of service: 05/12/22 Time of Service: 15:53 Cardiac Event Recorder Referring Provider:: Shawna Couch Indications:: Bradycardia Cardiac Event Note: This is a 30-day cardiac event monitor, ordered for bradycardia Predominant rhythm was sinus with an average heart rate of 56. Minimum was 43 maximum was 95 There was no atrial fibrillation, no high-grade AV block, no pauses than 3 seconds There were no apparent patient's symptoms
== END 2022-05-12 15:25 | disposition home or self-care (01) ==
LOC: CARDOPNVT 15:24
PROVIDERS: PCP Family Medicine; Visit Provider Internal Medicine Cardiovascular Disease
DX: R00.1 Bradycardia, unspecified (principal)
CPT/HCPCS: 93272

== ENCOUNTER 2022-05-16 08:32 | Outpatient (CLI) | payer MEDICARE, SELFPAY ==
--- NOTE | 2022-05-16 13:45 | RT.EKG_ITS ---
APPROVED REPORT Exam: Resting ECG Reason for Exam: sinus bradycardia Patient Location: O HR:53 bpm ECG Measurements Heart Rate 53 AXIS DC 144 P 51 QRSd 85 QRS 22 QT 630 T 46 QTc 592 Conclusion Sinus rhythm...normal P axis, V-rate 50- 99 Poor R wave progression Nondiagnostic ST-T abnormalities
== END 2022-05-16 08:33 | disposition home or self-care (01) ==
PROVIDERS: PCP Family Medicine; Visit Provider Internal Medicine Cardiovascular Disease
DX: R00.1 Bradycardia, unspecified (principal)
CPT/HCPCS: 93010

== ENCOUNTER → 2022-05-16 13:42 | Outpatient (BNVA) | payer MEDICARE, SELFPAY | PROVIDERS: PCP Family Medicine; Referring Provider Family Medicine; Visit Provider Internal Medicine Cardiovascular Disease | DX: R00.1 Bradycardia, unspecified (principal); I95.1 Orthostatic hypotension | CPT/HCPCS: 93005; 99202; 99214 ==

== ENCOUNTER 2022-07-16 14:20 | Outpatient (CLI) | payer MEDICARE, SELFPAY ==
--- NOTE | 2022-07-16 | DI.CT_ITS ---
Exam(s) CT NECK W EXAM: CT NECK W CLINICAL HISTORY: INFECTION OF SKIN, L08.9, RT SIDE OF NECK, ? DEEP SPACE INFECTION. TECHNIQUE: Imaging Protocol: Axial computed tomography images with coronal and sagittal reformatted images were created and reviewed CONTRAST MATERIAL: Intravenous: Omnipaque 350 Contrast volume:100 ml contrast COMPARISON: CT CT BRAIN NECK CTA from 03/06/2022 FINDINGS: Parotids: Enlargement and increased enhancement within the right parotid gland. No drainable abscess . Edema in the overlying skin. Parotid had a normal appearance on the prior exam. Submandibular/th yroid gland: Normal. Lymphadenopathy: There are scattered lymph nodes seen along the level one to level three all measuri ng less than 8 mm in short axis diameter which are physiologic in nature. Carotids/Jugular: No significant stenosis or dissection.. Soft tissues: The floor the mouth is unremarkable. The epiglottis and vocal cords are within normal limits. Lungs: Images through both lung apices are unremarkable. Bones: Mild degenerative changes of the cervical spine. Visualized portions of the brain and orbits: Unremarkable. Sinuses and mastoids: Clear. IMPRESSION: Inflammation of the right parotid and overlying skin. No evidence of abscess. RADIATION DOSE DELIVERED: 237.22mGy.cm Total DLP DATA REPOSITORY: All CT scans at this facility are submitted to the National Radiology Data Registry (NRDR) Dose Index Registry (DIR) with the [employer] (A[employer]). RADIATION OPTIMIZATION: All CT scans at this facility use at least one of these dose optimization te chniques: automated exposure control; mA and/or kV adjustment per patient size (includes targeted exa ms where dose is matched to clinical indication); or iterative reconstruction.
[2022-07-16 14:51] LABS: Abs Immature Grans 0.04 10^3/uL (0.0-0.06); Absolute Basophil Count 0.05 10^3/uL (0.0-0.2); Absolute Eosinophil Count 0.24 10^3/uL (0.0-0.7); Absolute Lymphocyte Count 1.45 10^3/uL (1.2-3.4); Absolute Monocyte Count 0.86 10^3/uL (0.1-0.8); Absolute Neutrophil Count 7.12 10^3/uL (1.2-6.7); Basophils % 0.5; Eosinophils % 2.5; HCT 40.7 % (36.0-46.0); HGB 13.8 g/dL (11.2-15.7); Immature Grans % 0.4; Lymphocytes % 14.9; MCH 30.6 pg (27.0-33.0); MCHC 33.9 % (32.0-36.0); MCV 90 fL (80-95); MPV 9.3 fL (8.0-11.0); Monocytes % 8.8; Neutrophils % 72.9; Platelet Count 183 10^3/uL (130-400); RBC 4.51 10^6/uL (3.93-5.22); RDW 12.4 % (11.7-14.6); RDW-SD 41.1 fL; WBC 9.76 10^3/uL (4.4-10.8)
[2022-07-16 14:59] LABS: Anion Gap 5.9 mmol/L (3-11); BUN 16 mg/dL (7-18); CO2 29.1 mmol/L (21.0-32.0); CREATININE 0.8 mg/dL (0.55-1.02); Calcium 9.1 mg/dL (8.5-10.1); Chloride 100 mmol/L (98-107); Estimated GFR 73.98 (mL/min/1.73m2); Glucose 94 mg/dL (74-106); Sodium 135 mmol/L (136-145)
[2022-07-16] MEDS: Omnipaque 350 MG/ML 100 ML BTL IJ (16:03)
[2022-07-16] MEDS: Normal Saline - Diluent 50 ML VIAL IJ (16:03)
[2022-07-16] MEDS: Normal Saline Flush 10 ML SYR IVP (16:04)
== END 2022-07-16 14:40 ==
LOC: DI 14:21
PROVIDERS: PCP Family Medicine; Visit Provider Physician Assistant Medical
DX: L08.89 Other specified local infections of the skin and subcutaneous tissue (principal); R59.0 Localized enlarged lymph nodes; K11.21 Acute sialoadenitis
CPT/HCPCS: 70491; 80048; 85025; J3490

== ENCOUNTER 2022-07-29 02:52 | Outpatient (RCR) | payer MEDICARE, SELFPAY ==
[2022-07-29] MEDS: Cosyntropin 0.25 MG VIAL IM (07:43)
[2022-07-29] MEDS: Normal Saline 10 ML VIAL (07:44)
[2022-07-29 18:51] LABS: Cortisol (Baseline) 19 ug/dL (4-23)
== END 2022-08-12 23:59 | disposition home or self-care (01) ==
LOC: INF 02:52
PROVIDERS: PCP Family Medicine; Visit Provider Family Medicine
DX: R63.4 Abnormal weight loss (principal)
CPT/HCPCS: 36415; 80400; 87206; 96372; J0834

== ENCOUNTER → 2022-08-28 13:21 | Outpatient (BNVA) | payer MEDICARE, SELFPAY | PROVIDERS: PCP Family Medicine; Visit Provider Nurse Practitioner Adult Health | DX: G31.84 Mild cognitive impairment of uncertain or unknown etiology (principal); F41.9 Anxiety disorder, unspecified | CPT/HCPCS: 99213 ==

== ENCOUNTER 2022-10-02 17:18 | Outpatient (REF) | payer MEDICARE, SELFPAY ==
[2022-10-02 20:13] LABS: Bacteria Moderate HPF (Negative); C & S Indicated? C&S Done As Ordered; Casts Negative LPF (Negative); Crystals Negative HPF (Negative); Epithelial Cells Few HPF (Negative); Mucus Negative (Negative); Other Cells Few Renal (Negative); RBC >50 HPF (0-2); WBC >50 HPF (0-5)
== END 2022-10-02 17:19 | disposition home or self-care (01) ==
LOC: LBN 17:18
PROVIDERS: PCP Family Medicine; Visit Provider Physician Assistant Medical
DX: R30.9 Painful micturition, unspecified (principal)
CPT/HCPCS: 81015; 87086

== ENCOUNTER 2023-01-16 11:29 | Outpatient (REF) | payer MEDICARE, SELFPAY ==
[2023-01-16 15:23] LABS: HCT 39.6 % (36.0-46.0); HGB 13.5 g/dL (11.2-15.7); MCH 30.5 pg (27.0-33.0); MCHC 34.1 % (32.0-36.0); MCV 90 fL (80-95); MPV 9.8 fL (8.0-11.0); Platelet Count 164 10^3/uL (130-400); RBC 4.42 10^6/uL (3.93-5.22); RDW 12.3 % (11.7-14.6); RDW-SD 40.7 fL; WBC 3.88 10^3/uL (4.4-10.8)
[2023-01-16 15:53] LABS: ALT 27 U/L (14-59); AST 25 U/L (15-37); Albumin 3.6 g/dL (3.4-5.0); Alkaline Phosphatase 57 U/L (46-116); Anion Gap 6.6 mmol/L (3-11); BUN 18 mg/dL (7-18); Bilirubin, Total 0.5 mg/dL (0.2-1.0); CO2 28.4 mmol/L (21.0-32.0); CREATININE 0.9 mg/dL (0.55-1.02); Calcium 8.9 mg/dL (8.5-10.1); Chloride 103 mmol/L (98-107); Estimated GFR 64.23 (mL/min/1.73m2); Glucose 100 mg/dL (74-106); Potassium 4.5 mmol/L (3.5-5.1); Sodium 138 mmol/L (136-145)
[2023-01-19 10:34] LABS: TSH (W/Ref FT4) 1.44 uIU/mL (0.36-3.74)
== END 2023-01-16 11:30 | disposition home or self-care (01) ==
LOC: NCHCN 11:29
PROVIDERS: PCP Family Medicine; Visit Provider Family Medicine
DX: R63.4 Abnormal weight loss (principal); R19.09 Other intra-abdominal and pelvic swelling, mass and lump
CPT/HCPCS: 80053; 85027; 84443

== ENCOUNTER 2023-01-30 15:59 | Outpatient (REF) | payer MEDICARE, SELFPAY ==
--- NOTE | 2023-01-30 14:30 | SKI_PTH ---
PATIENT: Hoda Peoples LOC: [facility] U#:[id number] AGE/SX: 82/F ROOM: RE01/30/[address]: Shawna Couch V : 1940 BED: DIS: 01/30/2023 SPEC #: [id number] RECD: 02/02/23 12:20 STATUS: MIGUEL CUELLO #: [id number] FRED: 01/30/23 14:[address]: Shawna Couch V DEPT: Surgical Specimen RECD BY: Annabella Zamarripa Tissues: 1 - SKIN BIOPSY(SHAVE/PUNCH) Procedures: SKIN LEVEL 4 Comments: [id number]
== END 2023-01-30 16:00 | disposition home or self-care (01) ==
LOC: NCHCN 15:59
PROVIDERS: PCP Family Medicine; Visit Provider Family Medicine
DX: D69.2 Other nonthrombocytopenic purpura (principal); L57.8 Other skin changes due to chronic exposure to nonionizing radiation
CPT/HCPCS: 88305

== ENCOUNTER 2023-02-06 16:43 | Inpatient (IN) | payer MEDICARE, SELFPAY ==
[2023-02-06] VITALS (16 sets, daily range): BP systolic 110–166; BP diastolic 55–100; PULSE 59–69; RESP 11–23; TEMP 36.2–36.8; O2SAT 92–99
--- NOTE | 2023-02-06 16:45 | DI.RAD_ITS ---
Exam(s) XR HIP RT COMPLETE AP PELVIS EXAM: XR HIP RT COMPLETE AP PELVIS CLINICAL HISTORY: fall, right hip pain. TECHNIQUE: 2D digital imaging was performed. COMPARISON: No exams were available for comparison FINDINGS: Two views: There is a comminuted intertrochanteric fracture of the right hip. Some displacement and angulation noted. There is no prominent ipsilateral hip joint space narrowing. No other pelvic fractures ident ified. Left hip appears intact. IMPRESSION: Comminuted intertrochanteric fracture of the right hip. DATA REPOSITORY: RADIATION DOSE DELIVERED:
--- NOTE | 2023-02-06 16:50 | DI.RAD_ITS ---
Exam(s) XR CHEST 1V IN DI DEPT EXAM: XR CHEST 1V IN DI DEPT CLINICAL HISTORY: fall. TECHNIQUE: 2D digital imaging was performed. COMPARISON: CR,XR XR CHEST 1V IN DI DEPT from 03/06/2022 FINDINGS: Single AP portable view. Elevation of the right hemidiaphragm again noted. Heart size is upper normal. The mediastinum is not widened. Lungs are clear. No infiltrates nor obvious pleural effusions. IMPRESSION: No acute pulmonary findings on this single AP portable view of the chest. Chronic elevation of the right hemidiaphragm again noted. DATA REPOSITORY: RADIATION DOSE DELIVERED:
[2023-02-06] MEDS: ACETAMINOPHEN 1,000 MG/100 ML BTL 400 MG IVPB (17:15)
[2023-02-06] MEDS: HYDROmorphone 2 MG/ML SYR 0.5 MG IVP ×5 (17:15→23:00)
--- NOTE | 2023-02-06 17:15 | RT.EKG_ITS ---
APPROVED REPORT Exam: Resting ECG Reason for Exam: Pre Op Patient Location: E HR:61 bpm ECG Measurements Heart Rate 61 AXIS MI 161 P 61 QRSd 87 QRS 7 QT 422 T 37 QTc 425 Conclusion Sinus rhythm...normal P axis, V-rate 60- 99
[2023-02-06 17:18] LABS: Abs Immature Grans 0.04 10^3/uL (0.0-0.06); Absolute Basophil Count 0.04 10^3/uL (0.0-0.2); Absolute Eosinophil Count 0.14 10^3/uL (0.0-0.7); Absolute Lymphocyte Count 1.05 10^3/uL (1.2-3.4); Absolute Monocyte Count 0.56 10^3/uL (0.1-0.8); Absolute Neutrophil Count 4.45 10^3/uL (1.2-6.7); Basophils % 0.6; Eosinophils % 2.2; HCT 37.2 % (36.0-46.0); HGB 12.6 g/dL (11.2-15.7); Immature Grans % 0.6; Lymphocytes % 16.7; MCHC 33.9 % (32.0-36.0); MCV 89 fL (80-95); MPV 9.3 fL (8.0-11.0); Monocytes % 8.9; Platelet Count 156 10^3/uL (130-400); RDW 12.3 % (11.7-14.6); RDW-SD 40.1 fL; WBC 6.28 10^3/uL (4.4-10.8)
[2023-02-06 17:32] LABS: ALT 27 U/L (14-59); AST 20 U/L (15-37); Albumin 3.5 g/dL (3.4-5.0); Alkaline Phosphatase 65 U/L (46-116); Anion Gap 8.1 mmol/L (3-11); BUN 17 mg/dL (7-18); Bilirubin, Total 0.5 mg/dL (0.2-1.0); CO2 25.9 mmol/L (21.0-32.0); CREATININE 0.9 mg/dL (0.55-1.02); Calcium 8.5 mg/dL (8.5-10.1); Chloride 100 mmol/L (98-107); Estimated GFR 64.23 (mL/min/1.73m2); Glucose 104 mg/dL (74-106); Sodium 134 mmol/L (136-145); Total Protein 6.6 g/dL (6.4-8.2)
--- NOTE | 2023-02-06 17:45 | ED.GENADUL_ITS ---
Discharge Plan Disposition Patient Disposition: Admit to [facility] Condition: Stable Discharge Details Chief Complaint: Orthopedic Clinical Impression: Closed intertrochanteric fracture of right hip Primary Care Provider: Shawna Couch V ED Provider: Kenzie Vazquez Home Meds and New Rx's Prescriptions: No Action ascorbic acid (vitamin C) PO diclofenac sodium 1 % gel 2 g topical QID Rx Instructions: apply to single elbow, wrist or hand; for hand includes palm/fingers/back of hand methylphenidate HCl 5 mg tablet 5 mg PO BID MDD 10mg PRN (Reason: energy) Qty: 20 0RF Rx Instructions: take one pill, once or twice daily, as needed - Please use symptom log! If taking an afternoon dose, take before 2pm ropinirole 0.5 mg tablet 0.25 mg PO QHS Rx Instructions: administer 1-3 hours before bedtime memantine 10 mg tablet 10 mg PO BID Qty: 180 3RF gabapentin 300 mg capsule 300 mg PO QHS Refresh Contacts Drops 1 drp ophthalmic (eye) BID bupropion HCl [Wellbutrin SR] 100 mg tablet sustained-release 12 hr 100 mg PO BID Qty: 60 1RF Rx Instructions: dose increase to 100mg twice per day cyanocobalamin (vitamin B-12) 1,000 mcg capsule 1,000 mcg PO DAILY clobetasol 0.05 % cream 1 applic topical BID cholecalciferol (vitamin D3) 25 mcg (1,000 unit) capsule 25 mcg PO DAILY (DME) Oxygen Tank See Rx Instructions .Route Rx Instructions: As directed rivastigmine [Exelon Patch] 4.6 mg/24 hour patch 24 hour 4.6 mg TD DAILY Qty: 90 3RF aspirin [Aspirin Low-Strength] 81 MG tablet,chewable 81 mg PO DAILY Centrum Silver 1 EACH tablet 1 tab PO DAILY escitalopram oxalate 10 mg tablet 15 mg PO DAILY Tylenol PM 25-500 mg-mg/mL Solution 1 ml PO HS Fish Oil 1 EACH capsule 1 cap PO DAILY midodrine 10 mg tablet 10 mg PO TID Qty: 90 0RF Rx Instructions: do not give last dose of day after 6PM or within 4 hrs of bedtime fexofenadine 180 mg Tablet 180 mg PO DAILY Qty: 30 0RF fludrocortisone 0.1 mg Tablet 0.1 mg PO BID Qty: 60 0RF Medical Decision Making Patient presents after mechanical fall has external rotation and shortening of the right lower extremity with pain in that right hip. There was no other injury. IV has been established she was given fentanyl in route but possible infiltrate on line so IV has been reestablished. She has been given 1000 mg of acetaminophen IV 0.5 mg IV push of Dilaudid with some improvement in her sympto ms. She has been n.p.o. for suspected right hip fracture. X-ray has been obtained routine preoperative EKG and chest x-ray as well. Will obtain basic lab and type and screen. X-ray has been reviewed with Dr. Ignacio who will plan for surgical repair tomorrow. Plan is to admit to the hospitalist services overnight for routine preop clearance. Case is discussed with Dr. Rodriguez from hospitalist services who accepts patient report and care of patient handed off Medical Records Medical records reviewed: Yes I reviewed the patient's medical records. Imaging Data Radiologic Study: Imaging: X-Ray (Right hip) Radiologist's impression: IMPRESSION: Comminuted intertrochanteric fracture of the right hip. Lab Data Lab results reviewed: Yes I reviewed the patient's lab results. HPI General Mode of arrival: EMS . Date/Time Provider Initiated Documentation: 02/06/23 16:49 . Limitations to Documentation: no limitations . Information obtained by: patient . HPI Narrative: Presents by EMS after a mechanical fall at home has rotation and shortening of right lower extremity which is where her pain is no head injury no loss of conscious no other injury noted Related Data Home Medications Medication Instructions Recorded Confirmed aspirin 81 mg chewable tablet 81 mg PO DAILY 12/12/14 02/06/23 (Aspirin Low-Strength) hahubfob-svh-kobuy acid 0.4 1 tab PO DAILY 12/12/14 02/06/23 mg-lycopene 300 mcg-lutein 250 mcg tablet (Centrum Silver) omega-3 fatty acids-fish oil 340 1 cap PO DAILY 08/02/17 02/06/23 mg-1,000 mg capsule (Fish Oil) cholecalciferol (vitamin D3) 25 25 mcg PO DAILY 01/09/21 02/06/23 mcg (1,000 unit) capsule clobetasol 0.05 % topical cream 1 applic topical BID 01/09/21 02/02/23 cyanocobalamin (vitamin B-12) 1,000 mcg PO DAILY 01/09/21 02/06/23 1,000 mcg capsule fexofenadine 180 mg tablet 180 mg PO DAILY #30 tabs 03/19/22 02/02/23 fludrocortisone 0.1 mg tablet 0.1 mg PO BID #60 tabs 03/19/22 02/06/23 midodrine 10 mg tablet 10 mg PO TID #90 tabs 03/19/22 02/02/23 Oxygen 05/20/22 02/02/23 bupropion HCl 100 mg tablet,12 hr 100 mg PO BID #60 tabs 08/04/22 02/06/23 sustained-release (Wellbutrin SR) carboxymethylcellulose sodium 1 drp ophthalmic (eye) BID 08/04/22 02/06/23 (Refresh Contacts eye drops) gabapentin 300 mg capsule 300 mg PO QHS 08/04/22 02/06/23 memantine 10 mg tablet 10 mg PO BID #180 tabs 08/28/22 02/06/23 ropinirole 0.5 mg tablet 0.25 mg PO QHS 08/28/22 02/06/23 rivastigmine 4.6 mg/24 hour 4.6 mg transdermal DAILY #90 ea 09/01/22 02/06/23 transdermal patch (Exelon Patch) ascorbic acid (vitamin C) PO 02/02/23 02/02/23 diclofenac sodium 1 % topical gel 2 g topical QID 02/02/23 02/02/23 methylphenidate HCl 5 mg tablet 5 mg PO BID PRN energy #20 tabs 02/02/23 02/02/23 diphenhydramine 25 1 ml PO HS 02/06/23 02/06/23 mg-acetaminophen 500 mg/15 mL oral solution escitalopram oxalate 10 mg tablet 15 mg PO DAILY 02/06/23 02/06/23 Previous Rx's Medication Instructions Recorded fexofenadine 180 mg tablet 180 mg PO DAILY #30 tabs 03/19/22 fludrocortisone 0.1 mg tablet 0.1 mg PO BID #60 tabs 03/19/22 midodrine 10 mg tablet 10 mg PO TID #90 tabs 03/19/22 bupropion HCl 100 mg tablet,12 hr 100 mg PO BID #60 tabs 08/04/22 sustained-release (Wellbutrin SR) memantine 10 mg tablet 10 mg PO BID #180 tabs 08/28/22 rivastigmine 4.6 mg/24 hour 4.6 mg transdermal DAILY #90 ea 09/01/22 transdermal patch (Exelon Patch) methylphenidate HCl 5 mg tablet 5 mg PO BID PRN energy #20 tabs 02/02/23 Allergies Allergy/AdvReac Type Severity Reaction Status Date / Time hydroxyzine Allergy Severe Pt states Verified 02/06/23 17:03 lips and eyes swell up cetirizine [From Zyrtec] Allergy Mild Verified 02/06/23 17:03 rivastigmine [From Exelon] Allergy Mild Nausea and Verified 02/06/23 17:03 rash sertraline Allergy Unknown Verified 02/06/23 17:03 donepezil HCl [From Aricept] AdvReac Mild Nausea Verified 02/06/23 17:03 General Stated Complaint: Orthopedic KAILASH: 3 Review of Systems All systems reviewed & are unremarkable except as noted in HPI and below PFSH All Active Problems (Updated 02/06/23 @ 20:44 by Kenzie Vazquez NP) Closed intertrochanteric fracture of right hip (Acute) Anxiety (Chronic) ACP (advance care planning) (Acute) Restless leg syndrome (Acute) Insomnia (Acute) Orthostatic hypotension (Chronic) Anxiety with depression (Acute) Idiopathic peripheral neuropathy (Acute) Idiopathic peripheral autonomic neuropathy (Acute) Memory loss (Acute) Abrasion of face (Acute) Facial contusion (Acute) 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 (Acute) Conductive hearing loss, external ear (Acute) Sensorineural hearing loss of both ears (Acute) Dysphagia (Acute) Dyspnea on exertion (Acute) Mild chronic gastritis (Chronic) Normal colonoscopy (Acute) Urticaria, chronic (Chronic) Dyspnea (Acute) Anxiety about health (Acute) Palliative care patient (Acute) Goals of care, counseling/discussion (Acute) MCI (mild cognitive impairment) (Acute) POLST (Physician Orders for Life-Sustaining Treatment) (Chronic) signed 01/22/21 FULL CODE Health care proxy on file (Chronic) Nahomi Breaux, daughter Alzheimer's dementia (Chronic) very mild Impacted cerumen, bilateral (Acute) Lack of motivation (Acute) Pre-syncope (Acute) Dizziness (Acute) Sinus bradycardia (Acute) Fear of (Acute) Impaired instrumental activities of daily living (Acute) Need for home health care (Acute) Medical History Allergic rhinitis Bilateral leg pain Bilateral leg weakness Cold feet Dementia mild Dizziness Fatigue Frequent PVCs Gastritis Hearing loss Hives Hx of bronchitis Hx of migraines Iliotibial band friction syndrome of both knees Ingrown toenail Insect bite Knee joint pain Lung nodule Migraine Myalgia Nail abnormality Obstructive sleep apnea Onychomycosis Osteoporosis Pain in left shoulder Palpitations Paroxysmal SVT (supraventricular tachycardia) Pelvic floor instability Peripheral neuropathy Raynauds syndrome Tubular adenoma Surgical History H/O foot surgery r foot surgerly H/O knee surgery L knee surgery-patella History of colonoscopy Hx of tonsillectomy Family History Mother , age 86 from dementia with hallucinations ? lewy body Dementia Father , age 89 from prostate cancer and malnutrition Prostate cancer Malnutrition Sister , age 80 from dementia, unspecified type Dementia Daughter No problems noted. Son No problems noted. 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 Do you think of yourself as: straight/heterosexual Current gender identity: female What is your relationship status?: How often do you talk on the phone with friends or family?: three or more times per week How often do you get together with friends or relatives?: three or more times per week Panel score (0-1 are the most socially isolated patients): 2 What type of physical activity do you participate in: walking Duration: < 15 minutes/day Frequency: does not exercise Special antoinette needs: No Seatbelt use: always Do you feel safe at home: Yes Do you feel safe in your relationship?: Yes Exam Const General: cooperative, comfortable and no acute distress Nutritional Appearance: average body habitus Orientation: alert, awake and oriented x3 HENMT Head: normal to inspection, normocephalic and atraumatic Mouth: oral mucosae normal Chest Chest: normal inspection of the chest Resp Effort & Inspection: normal respiratory effort Auscultation: clear to auscultation bilaterally Cardio Rate: regular rate Rhythm: regular rhythm and other (Strong pedal pulse on the right sensation intact) GI Inspection: normal to inspection Palpation: soft Skin General skin exam: no rashes or lesions noted Neuro General: patient alert, patient awake, patient oriented x3 and no focal motor deficits Extrem Right lower extremity: hip/thigh Details: abnormal to inspection, tenderness and deformity Location: at the hip (Externally rotated and shortened) Course Vital Signs Vital signs: Vital Signs Temperature 36.8 C 02/06/23 16:45 Pulse 61 02/06/23 16:45 Respiratory Rate 18 02/06/23 16:45 Blood Pressure 166/75 H 02/06/23 16:45 Pulse Oximetry 98 02/06/23 16:45 Temperature 36.8 C 02/06/23 16:45 Temperature Source Temporal Artery Scan 02/06/23 16:45 Pulse 61 02/06/23 16:45 Respiratory Rate 18 02/06/23 16:45 Respiratory Effort Normal, Non-Labored 02/06/23 17:02 Blood Pressure 166/75 H 02/06/23 16:45 Blood Pressure Position Sitting 02/06/23 16:45 Pulse Oximetry 98 02/06/23 16:45 Oxygen Delivery Method Room Air 02/06/23 16:45 Oxygen Flow Rate 0 02/06/23 16:45 Pain Level 10 02/06/23 16:45 Lab/Test Results Lab/Test Results: Laboratory Tests Range/Units 02/06/23 02/06/23 17:00 17:00 WBC (4.4-10.8) 10^3/uL 6.28 RBC (3.93-5.22) 10^6/uL 4.20 Hgb (11.2-15.7) g/dL 12.6 Hct (36.0-46.0) % 37.2 MCV (80-95) fL 89 MCH (27.0-33.0) pg 30.0 MCHC (32.0-36.0) % 33.9 RDW (11.7-14.6) % 12.3 Plt Count (130-400) 10^3/uL 156 MPV (8.0-11.0) fL 9.3 Immature Gran % 0.6 Neutrophils % 71.0 Lymphocytes % 16.7 Monocytes % 8.9 Eosinophils % 2.2 Basophils % 0.6 Nucleated RBC % (0.0-0.3) % 0.0 Absolute Neutrophils (1.2-6.7) 10^3/uL 4.45 Absolute Lymphocytes (1.2-3.4) 10^3/uL 1.05 L Absolute Monocytes (0.1-0.8) 10^3/uL 0.56 Absolute Eosinophils (0.0-0.7) 10^3/uL 0.14 Absolute Basophils (0.0-0.2) 10^3/uL 0.04 Sodium (136-145) mmol/L 134 L Potassium (3.5-5.1) mmol/L 4.0 Chloride (98-107) mmol/L 100 Carbon Dioxide (21.0-32.0) mmol/L 25.9 Anion Gap (3-11) mmol/L 8.1 BUN (7-18) mg/dL 17 Creatinine (0.55-1.02) mg/dL 0.9 Est GFR (CKD-EPI 2020) (mL/min/1.73m2) 64.23 Glucose (74-106) mg/dL 104 Calcium (8.5-10.1) mg/dL 8.5 Total Bilirubin (0.2-1.0) mg/dL 0.5 AST (15-37) U/L 20 ALT (14-59) U/L 27 Alkaline Phosphatase (46-116) U/L 65 Total Protein (6.4-8.2) g/dL 6.6 Albumin (3.4-5.0) g/dL 3.5
[2023-02-06 18:47] LABS: Bilirubin Negative (Negative); Blood Trace-intact (Negative); Clarity Sl Cloudy (Clear); Glucose Negative (Negative); Ketones 15 mg/dL (Negative); Leukocyte Esterase Trace (Negative); Nitrite Negative (Negative); Urobilinogen 0.2 mg/dL (Up to 0.2); pH 7.5 (5-8)
[2023-02-06 18:55] LABS: Bacteria Rare HPF (Negative); C & S Indicated? Yes; Casts Negative LPF (Negative); Crystals Moderate Amorphous HPF (Negative); Epithelial Cells Rare HPF (Negative); Mucus Negative (Negative); RBC 0-2 HPF (0-2); WBC 0-2 HPF (0-5)
[2023-02-06] MEDS: Normal Saline 1,000 ML 80 ML IV (20:58)
--- NOTE | 2023-02-06 21:10 | HPE_ITS ---
Date of service: 02/06/23 Time of Service: 21:10 Assessment and Plan Assessment and plan (1) Closed intertrochanteric fracture of right hip: Start date: 02/06/23 Status: Acute Assessment and plan: This is a 82-year-old lady who has a history of orthostatic hypotension without symptoms at the time she had a mechanical fall injuring her left hip with a closed, comminuted intertrochanteric fracture of the right femur. She will have surgical repair in the morning and will be n.p.o. after midnight. Morphine IV for pain management. She is a full code. (2) Orthostatic hypotension: Status: Chronic Assessment and plan: No evidence of exacerbation with patient on medical therapy. Patient is asymptomatic. (3) UTI (urinary tract infection): Start date: 02/06/23 Status: Acute Assessment and plan: Patient urinalysis is positive and urine culture will be performed. She will receive perioperative cephalosporin and we will follow-up urine culture and adjust antibiotic therapy for treatment after pathogen and sensitivities are known. This urinalysis would not performed in the ED and reviewed the morning of surgery. She was asymptomatic. (4) Anxiety with depression: Status: Chronic Assessment and plan: Patient also has mild cognitive impairment on Namenda, continue outpatient me dical regimen while hospitalized. History of Present Illness History of Present Illness Chief Complaint: Fall while picking raspberries injuring right hip Narrative: This is an 82-year-old female patient who was out in her yard picking raspberries walking very carefully but tripping and falling injuring her right hip. She cannot walk after that was brought to the ED and found to have a comminuted fracture of her right intertrochanteric femur which will require surgical repair. She was given fentanyl in route and Dilaudid in the ED which was not effective. She was switched to morphine IV for pain control. Dr. Ignacio was notified and plans surgery in the morning. Patient will be n.p.o. after midnight. She had no medical complaints prior to this incident other than being slightly unsteady walking on uneven terrain. She does have a history of mild dementia but this appears stable and she is able to give accurate history. She is a full code. Review of Systems Narrative: 13 point review of systems otherwise unrevealing or stable. Patient has a history of orthostatic hypotension but is on medical therapy without symptoms prior to her fall. She denies any weight gain. She has had no chest discomfort. PFSH All Active Problems (Updated 02/07/23 @ 06:56 by Stan Rodriguez) UTI (urinary tract infection) (Acute) Closed intertrochanteric fracture of right hip (Acute) Anxiety (Chronic) ACP (advance care planning) (Acute) Restless leg syndrome (Acute) Insomnia (Acute) Orthostatic hypotension (Chronic) Anxiety with depression (Chronic) Idiopathic peripheral neuropathy (Acute) Idiopathic peripheral autonomic neuropathy (Acute) Memory loss (Acute) Abrasion of face (Acute) Facial contusion (Acute) 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 (Acute) Conductive hearing loss, external ear (Acute) Sensorineural hearing loss of both ears (Acute) Dysphagia (Acute) Dyspnea on exertion (Acute) Mild chronic gastritis (Chronic) Normal colonoscopy (Acute) Urticaria, chronic (Chronic) Dyspnea (Acute) Anxiety about health (Acute) Palliative care patient (Acute) Goals of care, counseling/discussion (Acute) MCI (mild cognitive impairment) (Acute) POLST (Physician Orders for Life-Sustaining Treatment) (Chronic) signed 01/22/21 FULL CODE Health care proxy on file (Chronic) Nahomi Breaux, daughter Alzheimer's dementia (Chronic) very mild Impacted cerumen, bilateral (Acute) Lack of motivation (Acute) Pre-syncope (Acute) Dizziness (Acute) Sinus bradycardia (Acute) Fear of (Acute) Impaired instrumental activities of daily living (Acute) Need for home health care (Acute) Medical History (Updated 02/07/23 @ 06:56 by Stan Rodriguez) Allergic rhinitis Bilateral leg pain Bilateral leg weakness Cold feet Dementia mild Dizziness Fatigue Frequent PVCs Gastritis Hearing loss Hives Hx of bronchitis Hx of migraines Iliotibial band friction syndrome of both knees Ingrown toenail Insect bite Knee joint pain Lung nodule Migraine Myalgia Nail abnormality Obstructive sleep apnea Onychomycosis Osteoporosis Pain in left shoulder Palpitations Paroxysmal SVT (supraventricular tachycardia) Pelvic floor instability Peripheral neuropathy Raynauds syndrome Tubular adenoma Surgical History H/O foot surgery r foot surgerly H/O knee surgery L knee surgery-patella History of colonoscopy Hx of tonsillectomy Family History Mother , age 86 from dementia with hallucinations ? lewy body Dementia Father , age 89 from prostate cancer and malnutrition Prostate cancer Malnutrition Sister , age 80 from dementia, unspecified type Dementia Daughter No problems noted. Son No problems noted. 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 Do you think of yourself as: straight/heterosexual Current gender identity: female What is your relationship status?: How often do you talk on the phone with friends or family?: three or more times per week How often do you get together with friends or relatives?: three or more times per week Panel score (0-1 are the most socially isolated patients): 2 What type of physical activity do you participate in: walking Duration: < 15 minutes/day Frequency: does not exercise Special antoinette needs: No Seatbelt use: always Do you feel safe at home: Yes Do you feel safe in your relationship?: Yes Meds Allergies and Home Medications Allergies Allergy/AdvReac Type Severity Reaction Status Date / Time hydroxyzine Allergy Severe Pt states Verified 02/06/23 17:03 lips and eyes swell up cetirizine [From Zyrtec] Allergy Mild Verified 02/06/23 17:03 rivastigmine [From Exelon] Allergy Mild Nausea and Verified 02/06/23 17:03 rash sertraline Allergy Unknown Verified 02/06/23 17:03 donepezil HCl [From Aricept] AdvReac Mild Nausea Verified 02/06/23 17:03 Home Medications Medication Instructions Recorded Confirmed Type aspirin 81 mg chewable tablet 81 mg PO DAILY 12/12/14 02/06/23 History (Aspirin Low-Strength) oofvnbtt-fkw-ynpxs acid 0.4 1 tab PO DAILY 12/12/14 02/06/23 History mg-lycopene 300 mcg-lutein 250 mcg tablet (Centrum Silver) omega-3 fatty acids-fish oil 340 1 cap PO DAILY 08/02/17 02/06/23 History mg-1,000 mg capsule (Fish Oil) cholecalciferol (vitamin D3) 25 25 mcg PO DAILY 01/09/21 02/06/23 History mcg (1,000 unit) capsule clobetasol 0.05 % topical cream 1 applic topical BID 01/09/21 02/02/23 History cyanocobalamin (vitamin B-12) 1,000 mcg PO DAILY 01/09/21 02/06/23 History 1,000 mcg capsule fexofenadine 180 mg tablet 180 mg PO DAILY #30 tabs 03/19/22 02/02/23 Rx fludrocortisone 0.1 mg tablet 0.1 mg PO BID #60 tabs 03/19/22 02/06/23 Rx midodrine 10 mg tablet 10 mg PO TID #90 tabs 03/19/22 02/02/23 Rx Oxygen 05/20/22 02/02/23 History bupropion HCl 100 mg tablet,12 hr 100 mg PO BID #60 tabs 08/04/22 02/06/23 Rx sustained-release (Wellbutrin SR) carboxymethylcellulose sodium 1 drp ophthalmic (eye) BID 08/04/22 02/06/23 History (Refresh Contacts eye drops) gabapentin 300 mg capsule 300 mg PO QHS 08/04/22 02/06/23 History memantine 10 mg tablet 10 mg PO BID #180 tabs 08/28/22 02/06/23 Rx ropinirole 0.5 mg tablet 0.25 mg PO QHS 08/28/22 02/06/23 History rivastigmine 4.6 mg/24 hour 4.6 mg transdermal DAILY #90 ea 09/01/22 02/06/23 Rx transdermal patch (Exelon Patch) ascorbic acid (vitamin C) PO 02/02/23 02/02/23 History diclofenac sodium 1 % topical gel 2 g topical QID 02/02/23 02/02/23 History methylphenidate HCl 5 mg tablet 5 mg PO BID PRN energy #20 tabs 02/02/23 02/02/23 Rx diphenhydramine 25 1 ml PO HS 02/06/23 02/06/23 History mg-acetaminophen 500 mg/15 mL oral solution escitalopram oxalate 10 mg tablet 15 mg PO DAILY 02/06/23 02/06/23 History Exam Narrative Exam Narrative: General: Patient appears slightly older than stated age, flattened affect but good eye contact with slow monotonous tone to voice. She is alert and oriented to person, place and time. HEENT: Normocephalic, eyes with pupils equal and react to light symmetrically, extraocular movement intact and sclera anicteric. Oropharynx with moist mucosa and good dentition. Neck: Supple without JVD. Lungs: Clear to auscultation with no focalizing rales or rhonchi. Back: Not examined with patient supine. Heart: Regular rate and rhythm with no murmurs or gallops appreciated. Breast: Exam deferred. Abdomen: Obese contour, soft and nontender to palpation with no palpable hepatosplenomegaly. Genitalia/rectal: Exam deferred. Patient has Pearce catheter in place. Extremities: Right leg is shortened and turned outward with good capillary refill. She does have right hip pain. Left hip is nontender. There is no c lubbing, cyanosis or grossly pitting edema with patient have nonpitting edema over both lower extremities. Skin: Slightly pale, warm and dry. Actinic changes over sun exposed areas. Neuro: Cranial nerves II through XII gross intact, no focalizing motor deficits no tremor. Psych: Flattened affect with normal mood. No abnormal thought processes. Remote and recent memory grossly intact. Results Imaging Imaging Studies: EXAM:? XR HIP RT COMPLETE ? AP PELVIS CLINICAL HISTORY: ? fall, right hip pain. ? TECHNIQUE:? 2D digital imaging was performed. COMPARISON:? No exams were available for comparison FINDINGS: Two views: There is a comminuted intertrochanteric fracture of the right hip.? Some displacement and angulation noted.? There is no prominent ipsilateral hip joint space narrowing.? No other pelvic fractures identified.? Left hip appears intact. IMPRESSION: Comminuted intertrochanteric fracture of the right hip. XAM:? XR CHEST 1V IN DI DEPT CLINICAL HISTORY: ? fall. ? TECHNIQUE:? 2D digital imaging was performed. COMPARISON:? CR,XR XR CHEST 1V IN DI DEPT from 03/06/2022 FINDINGS: Single AP portable view. Elevation of the right hemidiaphragm again noted. Heart size is upper normal.? The mediastinum is not widened. Lungs are clear.? No infiltrates nor obvious pleural effusions. IMPRESSION: No acute pulmonary findings on this single AP portable view of the chest. Chronic elevation of the right hemidiaphragm again noted. Labs 02/07/23 06:04 02/06/23 17:00 Labs: Laboratory Results - last 24 hr 02/06/23 02/06/23 02/06/23 17:00 17:00 18:40 WBC 6.28 RBC 4.20 Hgb 12.6 Hct 37.2 MCV 89 MCH 30.0 MCHC 33.9 RDW 12.3 Plt Count 156 MPV 9.3 Immature Gran % 0.6 Neutrophils % 71.0 Lymphocytes % 16.7 Monocytes % 8.9 Eosinophils % 2.2 Basophils % 0.6 Nucleated RBC % 0.0 Absolute Neutrophils 4.45 Absolute Lymphocytes 1.05 L Absolute Monocytes 0.56 Absolute Eosinophils 0.14 Absolute Basophils 0.04 Sodium 134 L Potassium 4.0 Chloride 100 Carbon Dioxide 25.9 Anion Gap 8.1 BUN 17 Creatinine 0.9 Est GFR (CKD-EPI 2020) 64.23 Glucose 104 Calcium 8.5 Total Bilirubin 0.5 AST 20 ALT 27 Alkaline Phosphatase 65 Total Protein 6.6 Albumin 3.5 Urine Color Yellow Urine Clarity Sl Cloudy Urine pH 7.5 Ur Specific [place] 1.020 Urine Protein Trace H Urine Ketones 15 H Urine Blood Trace-intact H Urine Nitrite Negative Urine Bilirubin Negative Urine Urobilinogen 0.2 Ur Leukocyte Esterase Trace H Urine RBC 0-2 Urine WBC 0-2 Ur Epithelial Cells Rare Urine Crystals Moderate Amorphous Urine Bacteria Rare Urine Casts Negative Urine Mucus Negative Ur Culture Indicated? Yes Urine Glucose Negative Last Vital Signs Temp 36.8 C 02/06/23 16:45 Pulse 68 02/06/23 21:07 Resp 16 02/06/23 21:07 BP 123/55 L 02/06/23 21:07 Pulse Ox 97 02/06/23 21:07 Time Spent Time spent with Patient: >75 minutes Time was spent: preparing to see the patient(eg.review tests), obtaining and/or reviewing separately otained hiistory, ordering medications,tests, procedures, referring, communicating with other health adult day care worker, indepentently interpreting results and care coordination
[2023-02-06] MEDS: Normal Saline Flush 10 ML SYR IVP ×2 (22:06→22:59)
[2023-02-06 22:44] LABS: TSH (W/Ref FT4) 1.54 uIU/mL (0.36-3.74)
[2023-02-06] MEDS: rOPINIRole 0.5 MG TAB 0.25 MG PO (22:55)
[2023-02-06] MEDS: Gabapentin 300 MG CAP PO (22:55)
[2023-02-07] VITALS (68 sets, daily range): BP systolic 52–179; BP diastolic 27–111; PULSE 59–113; RESP 9–23; TEMP 36.2–36.8; O2SAT 85–100; BMI 24.9
[2023-02-07] MEDS: Normal Saline Flush 10 ML SYR IVP ×4 (00:07→06:05)
[2023-02-07] MEDS: MORPHine 4 MG/ML SYR IVP ×4 (00:07→06:05)
[2023-02-07 06:17] LABS: HCT 34.9 % (36.0-46.0); HGB 11.8 g/dL (11.2-15.7); MCH 30.6 pg (27.0-33.0); MCHC 33.8 % (32.0-36.0); MCV 91 fL (80-95); MPV 9.6 fL (8.0-11.0); Platelet Count 115 10^3/uL (130-400); RBC 3.85 10^6/uL (3.93-5.22); RDW 12.4 % (11.7-14.6); RDW-SD 40.8 fL; WBC 5.55 10^3/uL (4.4-10.8)
--- NOTE | 2023-02-07 06:55 | OCONE_ITS ---
Date of service: 02/07/23 Time of Service: 06:55 History of Present Illness History of Present Illness Chief Complaint: Right Hip Pain and Deformity Narrative: Hoda is a an 82-year-old active and independent lady who had a fall yesterd ay. This was a mechanical fall. She denied head trauma. She denies loss of conscious. She had no antecedent chest pain or shortness of breath. She was seen in the emergency department diagnosed with a comminuted intratrochanteric fracture of the right hip. She has no premorbid right hip pain. She denies any numbness or tingling. 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 While she was independent in the community she does report increasing physical decline with some weakness and lack of energy and stamina. Consults Consult date: 02/06/23 Requesting physician: Stan Rodriguez Consult Reason Right Hip Fracture Assessment and Plan Assessment and plan (1) Closed intertrochanteric fracture of right hip: Status: Acute Assessment and plan: Hoda is an 82-year-old female who is status post mechanical fall resulting in a comminuted intratrochanteric fracture about the right femur. I discussed the fracture with her. I reviewed treatment options and recommended operative fixation, likely with intramedullary nail device. There is notable comminution although this should be able to be bridged with the nail device. Is possible that a more open approach with individual fracture management must be considered although unlikely. I reviewed the risk with her to include bleeding, infection, pain, stiffness, malunion, nonunion, hardware prominence, hardware failure, damage to nerves and vessels, mostly superficial, damage to muscle and tendons, hip arthrosis, blood clot, cardiopulmonary demise. Despite these risk, she elects to proceed. I also, per her request, called her daughter, Nahomi Breaux, discussed the case and the expected recovery course. She is NPO. After the surgery she will be weightbearing as tolerated we will start physical therapy. She will likely go to home with home health services versus jail facility based on how she recovers over the next 2 to 3 days. Review of Systems All systems reviewed & are unremarkable except as noted in HPI and below PFSH All Active Problems UTI (urinary tract infection) (Acute) Closed intertrochanteric fracture of right hip (Acute) Anxiety (Chronic) ACP (advance care planning) (Acute) Restless leg syndrome (Acute) Insomnia (Acute) Orthostatic hypotension (Chronic) Anxiety with depression (Chronic) Idiopathic peripheral neuropathy (Acute) Idiopathic peripheral autonomic neuropathy (Acute) Memory loss (Acute) Abrasion of face (Acute) Facial contusion (Acute) 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 (Acute) Conductive hearing loss, external ear (Acute) Sensorineural hearing loss of both ears (Acute) Dysphagia (Acute) Dyspnea on exertion (Acute) Mild chronic gastritis (Chronic) Normal colonoscopy (Acute) Urticaria, chronic (Chronic) Dyspnea (Acute) Anxiety about health (Acute) Palliative care patient (Acute) Goals of care, counseling/discussion (Acute) MCI (mild cognitive impairment) (Acute) POLST (Physician Orders for Life-Sustaining Treatment) (Chronic) signed 01/22/21 FULL CODE Health care proxy on file (Chronic) Nahomi Breaux, daughter Alzheimer's dementia (Chronic) very mild Impacted cerumen, bilateral (Acute) Lack of motivation (Acute) Pre-syncope (Acute) Dizziness (Acute) Sinus bradycardia (Acute) Fear of (Acute) Impaired instrumental activities of daily living (Acute) Need for home health care (Acute) Medical History Allergic rhinitis Bilateral leg pain Bilateral leg weakness Cold feet Dementia mild Dizziness Fatigue Frequent PVCs Gastritis Hearing loss Hives Hx of bronchitis Hx of migraines Iliotibial band friction syndrome of both knees Ingrown toenail Insect bite Knee joint pain Lung nodule Migraine Myalgia Nail abnormality Obstructive sleep apnea Onychomycosis Osteoporosis Pain in left shoulder Palpitations Paroxysmal SVT (supraventricular tachycardia) Pelvic floor instability Peripheral neuropathy Raynauds syndrome Tubular adenoma Surgical History H/O foot surgery r foot surgerly H/O knee surgery L knee surgery-patella History of colonoscopy Hx of tonsillectomy Family History Mother , age 86 from dementia with hallucinations ? lewy body Dementia Father , age 89 from prostate cancer and malnutrition Prostate cancer Malnutrition Sister , age 80 from dementia, unspecified type Dementia Daughter No problems noted. Son No problems noted. 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 Do you think of yourself as: straight/heterosexual Current gender identity: female What is your relationship status?: How often do you talk on the phone with friends or family?: three or more times per week How often do you get together with friends or relatives?: three or more times per week Panel score (0-1 are the most socially isolated patients): 2 What type of physical activity do you participate in: walking Duration: < 15 minutes/day Frequency: does not exercise Special antoinette needs: No Seatbelt use: always Do you feel safe at home: Yes Do you feel safe in your relationship?: Yes Exam Narrative Exam Narrative: Laying in the supine position the hospital bed. No acute distress. Alert and orient x3. Obviously tired and does close her eyes momentarily during the exam and interview. Head is normocephalic and atraumatic. Evaluation of the right leg shows obvious shortening and external rotation. The hip and the knee are kept in a slightly flexed position. She has active toe extension and flexion as well as ankle dorsiflexion and plantarflexion. She endorses sensation over the deep and superficial peroneal nerve and tibial nerve. No skin defects. No open wounds. No pain with palpation of the knee. Palpable DP PT pulse. Results Last Vital Signs Temp 36.2 C L 02/07/23 05:45 Pulse 73 02/07/23 05:45 Resp 18 02/07/23 05:45 BP 102/63 02/07/23 05:45 Pulse Ox 94 02/07/23 05:45 Labs 02/07/23 06:04 02/06/23 17:00 Labs: Laboratory Results - last 24 hr 02/06/23 02/06/23 02/06/23 17:00 17:00 17:00 WBC 6.28 RBC 4.20 Hgb 12.6 Hct 37.2 MCV 89 MCH 30.0 MCHC 33.9 RDW 12.3 Plt Count 156 MPV 9.3 Immature Gran % 0.6 Neutrophils % 71.0 Lymphocytes % 16.7 Monocytes % 8.9 Eosinophils % 2.2 Basophils % 0.6 Nucleated RBC % 0.0 Absolute Neutrophils 4.45 Absolute Lymphocytes 1.05 L Absolute Monocytes 0.56 Absolute Eosinophils 0.14 Absolute Basophils 0.04 Sodium 134 L Potassium 4.0 Chloride 100 Carbon Dioxide 25.9 Anion Gap 8.1 BUN 17 Creatinine 0.9 Est GFR (CKD-EPI 2020) 64.23 Glucose 104 Calcium 8.5 Total Bilirubin 0.5 AST 20 ALT 27 Alkaline Phosphatase 65 Total Protein 6.6 Albumin 3.5 TSH 1.54 Urine Color Urine Clarity Urine pH Ur Specific [place] Urine Protein Urine Ketones Urine Blood Urine Nitrite Urine Bilirubin Urine Urobilinogen Ur Leukocyte Esterase Urine RBC Urine WBC Ur Epithelial Cells Urine Crystals Urine Bacteria Urine Casts Urine Mucus Ur Culture Indicated? Urine Glucose Patient ABO/Rh Antibody Screen 02/06/23 02/06/23 02/07/23 18:40 21:04 06:04 WBC 5.55 RBC 3.85 L Hgb 11.8 Hct 34.9 L MCV 91 MCH 30.6 MCHC 33.8 RDW 12.4 Plt Count 115 L MPV 9.6 Immature Gran % Neutrophils % Lymphocytes % Monocytes % Eosinophils % Basophils % Nucleated RBC % Absolute Neutrophils Absolute Lymphocytes Absolute Monocytes Absolute Eosinophils Absolute Basophils Sodium Potassium Chloride Carbon Dioxide Anion Gap BUN Creatinine Est GFR (CKD-EPI 2020) Glucose Calcium Total Bilirubin AST ALT Alkaline Phosphatase Total Protein Albumin TSH Urine Color Yellow Urine Clarity Sl Cloudy Urine pH 7.5 Ur Specific [place] 1.020 Urine Protein Trace H Urine Ketones 15 H Urine Blood Trace-intact H Urine Nitrite Negative Urine Bilirubin Negative Urine Urobilinogen 0.2 Ur Leukocyte Esterase Trace H Urine RBC 0-2 Urine WBC 0-2 Ur Epithelial Cells Rare Urine Crystals Moderate Amorphous Urine Bacteria Rare Urine Casts Negative Urine Mucus Negative Ur Culture Indicated? Yes Urine Glucose Negative Patient ABO/Rh A Positive Antibody Screen NEGATIVE Imaging Imaging Studies: X-ray of the right hip demonstrates a comminuted intertrochanteric femur fracture. There is shortening and notable rotation. There looks to be involvement of the lesser trochanter and the greater trochanter as well as comminution at the basicervical region throughout the intertrochanteric ridge. No shaft extension is appreciated.
--- NOTE | 2023-02-07 07:26 | W.ANESPRE ---
General Info Date of Service Date Performed: 02/07/23 Height: 5 ft 7 in Weight: 72.235 kg Body Mass Index (BMI): 24.9 Surgical Procedure: Operation Date: 02/07/23 08:00 Proposed Procedure Side Surgeon gerald Ignacio MD Meds Allergies and Home Medications Allergies Allergy/AdvReac Type Severity Reaction Status Date / Time hydroxyzine Allergy Severe Pt states Verified 02/06/23 17:03 lips and eyes swell up cetirizine [From Zyrtec] Allergy Mild Verified 02/06/23 17:03 rivastigmine [From Exelon] Allergy Mild Nausea and Verified 02/06/23 17:03 rash sertraline Allergy Unknown Verified 02/06/23 17:03 donepezil HCl [From Aricept] AdvReac Mild Nausea Verified 02/06/23 17:03 Home Medication Medication Instructions Recorded aspirin 81 mg chewable tablet 81 mg PO DAILY 12/12/14 (Aspirin Low-Strength) [id number] acid 0.4 1 tab PO DAILY 12/12/14 mg-lycopene 300 mcg-lutein 250 mcg tablet (Centrum Silver) omega-3 fatty acids-fish oil 340 1 cap PO DAILY 08/02/17 mg-1,000 mg capsule (Fish Oil) cholecalciferol (vitamin D3) 25 25 mcg PO DAILY 01/09/21 mcg (1,000 unit) capsule clobetasol 0.05 % topical cream 1 applic topical BID 01/09/21 cyanocobalamin (vitamin B-12) 1,000 mcg PO DAILY 01/09/21 1,000 mcg capsule fexofenadine 180 mg tablet 180 mg PO DAILY #30 tabs 03/19/22 fludrocortisone 0.1 mg tablet 0.1 mg PO BID #60 tabs 03/19/22 midodrine 10 mg tablet 10 mg PO TID #90 tabs 03/19/22 Oxygen 05/20/22 bupropion HCl 100 mg tablet,12 hr 100 mg PO BID #60 tabs 08/04/22 sustained-release (Wellbutrin SR) carboxymethylcellulose sodium 1 drp ophthalmic (eye) BID 08/04/22 (Refresh Contacts eye drops) gabapentin 300 mg capsule 300 mg PO QHS 08/04/22 memantine 10 mg tablet 10 mg PO BID #180 tabs 08/28/22 ropinirole 0.5 mg tablet 0.25 mg PO QHS 08/28/22 rivastigmine 4.6 mg/24 hour 4.6 mg transdermal DAILY #90 ea 09/01/22 transdermal patch (Exelon Patch) ascorbic acid (vitamin C) PO 02/02/23 diclofenac sodium 1 % topical gel 2 g topical QID 02/02/23 methylphenidate HCl 5 mg tablet 5 mg PO BID PRN energy #20 tabs 02/02/23 diphenhydramine 25 1 ml PO HS 02/06/23 mg-acetaminophen 500 mg/15 mL oral solution escitalopram oxalate 10 mg tablet 15 mg PO DAILY 02/06/23 Current Visit Medications: Current Medications Generic Name Dose Route Start Last Admin Trade Name Freq PRN Reason Stop Dose Admin Acetaminophen 0 mg 02/06/23 21:17 Acetaminophen 325 Mg Tab PO Q4H PRN PRN Al Hydrox/Mg Hydrox/Simethicone 30 ml 02/06/23 21:17 Mylanta Suspension 30 Ml Cup PO Q2H PRN PRN Bupropion HCl 100 mg 02/07/23 08:30 Bupropion-Cr 100 Mg Tabcr PO BID [facility] Carboxymethylcellulose Sodium 0 each 02/07/23 08:30 Refresh Plus Eye Drops 0.4ml OP BID [facility] Cholecalciferol 1,000 units 02/07/23 08:30 Cholecalciferol (Vitamin D3) 1,000 Unit Tab PO DAILY [facility] Clobetasol Propionate 0 gm 02/07/23 08:30 Clobetasol 0.05% Cream 15 Gm Tube TP BID [facility] Cyanocobalamin 1,000 mcg 02/07/23 08:30 Cyanocobalamin 500 Mcg Tab PO DAILY [facility] Diclofenac Sodium 2 gm 02/07/23 08:30 Diclofenac 1% Gel 100 Gm Tube TP QID [facility] Dimethicone/Zinc Oxide 0 gm 02/06/23 21:17 Alek Protect Cream 142 Gm Tube TP PRN PRN Docusate Sodium 100 mg 02/06/23 21:17 Docusate Sodium 100 Mg Cap PO TID PRN PRN Escitalopram Oxalate 15 mg 02/07/23 08:30 Escitalopram 10 Mg Tab PO DAILY [facility] Fexofenadine HCl 180 mg 02/07/23 08:30 Fexofenadine 180 Mg Tab PO DAILY [facility] Fludrocortisone Acetate 0.1 mg 02/07/23 08:30 Fludrocortisone 0.1 Mg Tab PO BID [facility] Gabapentin 300 mg 02/06/23 22:00 02/06/23 22:55 Gabapentin 300 Mg Cap PO 300 mg HS DEYA Administration Sodium Chloride 1,000 mls @ 80 mls/hr 02/06/23 20:30 02/06/23 20:58 Saline 1000ml Bag IV 80 mls/hr INFUSION DEYA Administration Sodium Chloride 500 mls @ 0 mls/hr 02/06/23 21:17 Saline 500ml Bag IV PRN PRN As Directed Cefazolin Sodium/Dextrose 2 gm in 50 mls @ 100 mls/hr 02/07/23 06:00 Ancef Duplex IVPB PREOP [facility] Tranexamic Acid 1,000 mg/ 60 mls @ 360 mls/hr 02/07/23 06:00 Sodium Chloride IVPB PREOP [facility] IV Miscellaneous Supplies 1 each 02/06/23 21:30 Iv Access IV DIRECTED [facility] Magnesium Hydroxide 30 ml 02/06/23 21:17 Milk Of Magnesia 30 Ml Cup PO DAILY PRN PRN Memantine 10 mg 02/07/23 08:30 Memantine 5 Mg Tab PO BID [facility] Methylphenidate HCl 5 mg 02/06/23 22:06 Methylphenidate 10 Mg Tab PO BID PRN energy Midodrine 10 mg 02/07/23 08:30 Midodrine 2.5 Mg Tab PO TID [facility] Morphine Sulfate 4 mg 02/06/23 23:54 02/07/23 06:05 Morphine 4 Mg/Ml Syr IVP 4 mg Q30MIN PRN Administration Non-Formulary Medication 4.6 mg 02/07/23 08:30 Rivastigmine [Exelon Patch] TD DAILY [facility] Polyethylene Glycol 17 gm 02/06/23 21:17 Polyethylene Glycol 3350 17 Gm Packet PO DAILY PRN PRN Constipation Ropinirole HCl 0.25 mg 02/06/23 22:00 02/06/23 22:55 Ropinirole 0.5 Mg Tab PO 0.25 mg HS [facility] Administration Sodium Chloride 0 ml 02/06/23 21:17 02/07/23 06:05 Normal Saline Flush 10 Ml Syr IVP 10 ml PRN PRN Administration PFSH Active Problems Active Problems: Problem Status Onset Code UTI (urinary tract infection) N39.0 Closed intertrochanteric fracture of right hip S72.141A Anxiety F41.9 ACP (advance care planning) Z71.89 Restless leg syndrome G25.81 Insomnia G47.00 Orthostatic hypotension I95.1 Anxiety with depression F41.8 Idiopathic peripheral neuropathy G60.9 Idiopathic peripheral autonomic neuropathy G90.09 Memory loss R41.3 Abrasion of face S00.81XA Facial contusion S00.83XA 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 H60.8X3 Conductive hearing loss, external ear H90.2 Sensorineural hearing loss of both ears H90.3 Dysphagia R13.10 Dyspnea on exertion R06.00 Mild chronic gastritis K29.50 Normal colonoscopy Chest pain R07.9 Urticaria, chronic L50.8 Dyspnea R06.00 Anxiety about health F41.8 Palliative care patient Z51.5 Goals of care, counseling/discussion Z71.89 MCI (mild cognitive impairment) G31.84 POLST (Physician Orders for Life-Sustaining Treatment) Z78.9 Health care proxy on file Alzheimer's dementia G30.9, F02.80 Impacted cerumen, bilateral H61.23 Lack of motivation Z91.89 Pre-syncope R55 Dizziness R42 Sinus bradycardia R00.1 Fear of F40.298 Impaired instrumental activities of daily living Z78.9 Need for home health care Z74.2 Medical History Medical History Allergic rhinitis Bilateral leg pain Bilateral leg weakness Cold feet Dementia mild Dizziness Fatigue Frequent PVCs Gastritis Hearing loss Hives Hx of bronchitis Hx of migraines Iliotibial band friction syndrome of both knees Ingrown toenail Insect bite Knee joint pain Lung nodule Migraine Myalgia Nail abnormality Obstructive sleep apnea Onychomycosis Osteoporosis Pain in left shoulder Palpitations Paroxysmal SVT (supraventricular tachycardia) Pelvic floor instability Peripheral neuropathy Raynauds syndrome Tubular adenoma Surgical History Surgical History H/O foot surgery r foot surgerly H/O knee surgery L knee surgery-patella History of colonoscopy Hx of tonsillectomy Tobacco Smoking/Tobacco Use Status: Never Alcohol Alcohol Intake: never Substance Use Substance use: Never Substance use type: does not use Vital Signs and Lab Results Vital Signs Most Recent Vital Signs in EMR: Most Recent Vital Signs Temp Pulse Resp BP Pulse Ox 36.4 C L 67 18 103/62 92 02/07/23 06:59 02/07/23 07:00 02/07/23 05:45 02/07/23 06:59 02/07/23 06:59 Lab Results 02/07/23 06:04 02/07/23 08:04 Blood Type / Crossmatch: Patient ABO/Rh A Positive 02/06/23 Antibody Screen NEGATIVE 02/06/23 Complete Blood Count: White Blood Count 5.55 10^3/uL (4.4-10.8) 02/07/23 06:04 Red Blood Count 3.85 10^6/uL (3.93-5.22) L 02/07/23 06:04 Hemoglobin 11.8 g/dL (11.2-15.7) 02/07/23 06:04 Hematocrit 34.9 % (36.0-46.0) L 02/07/23 06:04 Platelet Count 115 10^3/uL (130-400) L 02/07/23 06:04 Complete Metabolic Panel: Sodium 134 mmol/L (136-145) L 02/07/23 08:04 Potassium 4.1 mmol/L (3.5-5.1) 02/07/23 08:04 Chloride 101 mmol/L (98-107) 02/07/23 08:04 Carbon Dioxide 26.9 mmol/L (21.0-32.0) 02/07/23 08:04 BUN 19 mg/dL (7-18) H 02/07/23 08:04 Creatinine 0.9 mg/dL (0.55-1.02) 02/07/23 08:04 Est GFR (CKD-EPI 2020) 64.23 (mL/min/1.73m2) 02/07/23 08:04 Magnesium 1.9 mg/dL (1.8-2.4) 02/07/23 08:04 Calcium 7.9 mg/dL (8.5-10.1) L 02/07/23 08:04 Albumin 3.1 g/dL (3.4-5.0) L 02/07/23 08:04 Glucose 103 mg/dL (74-106) 02/07/23 08:04 Liver Function Panel: Alanine Aminotransferase (ALT/SGPT) 25 U/L (14-59) 02/07/23 08:04 Aspartate Amino Transf (AST/SGOT) 22 U/L (15-37) 02/07/23 08:04 Coagulation Panel: No Data to Display Cardiac Panel: No Data to Display Arterial Blood Gas: No Data to Display Venous Blood Gas: No Data to Display Pancreas Panel: No Data to Display Thyroid Panel: Thyroid Stimulating Hormone (TSH) 1.54 uIU/mL (0.36-3.74) 02/06/23 17:00 Infectious Disease: No Data to Display Blood Cultures: No Data to Display Toxicology Panel: No Data to Display Anesthesia Assessment and Plan Anesthesia History Personal History: No History of Anesthesia Complications Family History: No Family History of Anesthesia Complications Exercise Tolerance Exercise Tolerance: Metabolic Equivalents>4 Pertinent Negatives Pertinent Negatives: No Symptoms of GERD Cardiac & Pulmonary Exam Cardiac Exam: Normal S1/S2 Heart Sounds Pulmonary Exam: Clear Bilateral Breath Sounds Implantable Cardiac Device Does patient have a Pacemaker or an ICD?: No Airway Exam Known Difficult Airway: No Mallampati Class: 2 Mouth Opening: Normal (> 3cm) Thyromental Distance: Greater than 3 cm Neck Range of Motion: Full ROM Neck Circumference: Normal Teeth Condition: Removable Dentures/Plates Upper and Removable Dentures/Plates Lower ASA Classification ASA Score: ASA 2 Emergency Case?: Yes NPO Status NPO Status: NPO Clears >2 hours, Solids >8 hours Anesthesia Plan Resuscitation Status: Full Code Anesthesia Technique: Spinal Anesthesia Airway Planned: Natural Airway Monitors Used: Standard Monitors
[2023-02-07 07:31] LABS: ALT 25 U/L (14-59); AST 22 U/L (15-37); Albumin 3.1 g/dL (3.4-5.0); Alkaline Phosphatase 61 U/L (46-116); Anion Gap 6.1 mmol/L (3-11); BUN 19 mg/dL (7-18); Bilirubin, Total 0.7 mg/dL (0.2-1.0); CO2 26.9 mmol/L (21.0-32.0); CREATININE 0.9 mg/dL (0.55-1.02); Calcium 7.9 mg/dL (8.5-10.1); Chloride 101 mmol/L (98-107); Estimated GFR 64.23 (mL/min/1.73m2); Glucose 103 mg/dL (74-106); Magnesium 1.9 mg/dL (1.8-2.4); Potassium 4.1 mmol/L (3.5-5.1); Sodium 134 mmol/L (136-145); Total Protein 6.1 g/dL (6.4-8.2)
--- NOTE | 2023-02-07 07:50 | NUR.NOTE ---
Nursing Note: At 07:00 recieved patient from wire tester nurse, told to hold blood pressure medication prior to surgery per MD. All morning medications scheduled for 08:30 were not given, anesthesiologist was aware. Patient was brought to the OR via bed at 07:50, patient verbalized not having pain when not moving. Patient was medicated by night nurse at 06:05 4mg IVP Morphine. Patient was alert and oriented to self, place, and day at the time when received from prior shift. Vital signs were within normal limits taken and recorded prior to surgery. LR was hung per anesthesiologist for surgery.
[2023-02-07] MEDS: Lactated Ringers 1,000 ML 125 ML IV ×2 (08:04→12:19)
--- NOTE | 2023-02-07 08:25 | DI.RAD_ITS ---
Exam(s) XR HIP RT IN OR EXAM: XR HIP RT IN OR CLINICAL HISTORY: right hip fracture. TECHNIQUE: 2D digital imaging was performed. COMPARISON: X-rays earlier same date FINDINGS: Fluoroscopy was provided intraoperatively during ORIF right hip fracture. See procedure report for d etails. Total fluoroscopy time 83 seconds Radiation exposure index/cumulative dose: Tulior= 11.467 mGy IMPRESSION: As above. DATA REPOSITORY: RADIATION DOSE DELIVERED:
[2023-02-07] MEDS: ceFAZolin 2 GM/50 ML BAG 100 GM (08:34)
--- NOTE | 2023-02-07 09:43 | W.PM.OP ---
Date of service: 02/07/23 Time of Service: 09:43 Operative Note Operative Note DATE OF PROCEDURE: 02/07/23 PRE-OP DIAGNOSIS: RIGHT Comminuted Intertrochanteric Femur Fracture POST-OP DIAGNOSIS: same PROCEDURE: RIGHT Intramedullary Fixation of Proximal Femur Fracture SURGEON: José Antonio Ignacio ANALOG IC DESIGN ENGINEER: José Miguel Greco ANESTHESIA TYPE: Spinal Refer to Anesthesia Record ESTIMATED BLOOD LOSS: 300 PATHOLOGY: none sent COMPLICATIONS: None Patient was transported to: PACU Patient's condition: stable Implants: Depuy-Synthes TFNA 12mm x 170mm Indications: Hoda is a 82 year old female who presented to the Emergency Department after a fall. X-rays confirmed the diagnosis of a intertrochanteric fracture of the proximal femur. I reviewed the possible treatment options and given the fracture of the femur, I recommened operative fixation. I discussed the technical details of the surgery. I reviewed the risks such as bleeding, infection, pain, stiffness, malunion, nonunion, hardware prominence, hardware faiilure, malrotation, avascular necrosis, blood clot. Despite these risks, she agreed to proceed. Findings: There was a fracture of the proximal femur which was able to be reduced with traction and internal rotation and external manipulation. There was a coronal type split of the greter trochanter which was hard to fully manipulate and would anteriorly angulate, hinged from the proximal tip of the trochanter. Procedure Description: Hoda was taken back to the operating room. A spinal anesthestic was then administered. The feet were wrapped with cast padding and Coban and then placed into the boot liners and then into the boots. Care was taken to protect the skin and make sure the heels were fully down and the boots were stable. The patient was then positioned onto the HANA table. Both legs were held in a neutral position. SCDs were applied. The patient was then slid down onto a perineal post. The arm of the operative side was then placed across the chest and secured. The nonoperative leg was scissored. A gentle reduction was then performed with traction and internal rotation and gentle external manipulation. Prophylactic antibiotics in the form of Cefazolin were administered. 1g of Tranxemic Acid was given intravenously within 30 minutes of incision. The right leg was then prepped with Chloraprep and draped in a standard fashion with shower-curtain type drape with Iodine impregnated skin protection. A timeout to confirm correct identity, side and site, procedure, allergies, anesthesia, and medical concerns was performed. Using fluoroscopy, the starting point was marked over the lateral hip, proximal to the tip of the greater trochanter. A 3cm incision was made through skin and the fascia of the gluteus musculature until the tip of the trochanter was palpable. The starting wire was placed onto the tip, just slightly on the media aspect, and centered in the AP plane. Using a demetri, the starting guide wire was buried into the bone. A lateral x-ray confirmed appropriate position and the guidewire was advanced to the level of the lesser trochanter. With a tissue protector, the proximal femur was opened with the opening reamer. The short TFNA was chosen for this case and a Synthes TFNA [id number] nail was selected and opened on the back table. The nail was assembled to the aiming arm on the back table and confirmed to be aligned with the triple sleeve for blade insertion. Using manual force the nail was advanced into the femur. A few light mallet blows advanced the nail to its appropriate position. The triple sleeve was inserted through the targeting arm and the skin, soft tissue, and IT band was then incised. The triple sleeve was advanced down to the lateral femur. A guidewire was advanced into the femoral head where it was noted to be centered. A lateral x-ray was used to confirm centered positioning on the lateral. Happy with the length of the guidewire, this was measured. A 95mm helical blade was opened. The lateral cortex was opened and the path of the blade was reamed with a tapered reamer to appropriate depth. The helical blade was malletted into position and confirmed to be appropriately located on fluoroscopy. On the lateral view there is seem to be some displacement of the anterior coronal split of the greater trochanter. This was reduced initially but seem to displace with the insertion of the helical blade. It was hinged proximally without any displacement at the proximal tip of the greater trochanter and with excellent reduction on the AP. Therefore, I did not address the separately. The set screw was then advanced to a half turn shy of fully tightened, allowing for the helical blade to slide. The targeting device was removed. AP and lateral x-rays of the hip confirmed appropriate positioning within the femur and with good alignment of the fracture. Using the targeting arm, the skin was incised for placement of the distal locking screw. The trochar was inserted through the skin and IT band down onto the lateral cortex of the femur. The 4.2mm drill was advanced across the femur and through the nail. This was measured and an appropriately sized 5.0mm screw was placed. The targeting arm was removed. Final x-rays were obtained. The wounds were thoroughly irrigated. A cocktail consisting of 123mg of Ropivacaine, 0.25mg of Epinephrine, 0.04mg of Clonidine, and 15mg of Ketorolac, diluted to 50cc was injected throughout the wounds both deep and superficially. The deep fascia of the proximal two wounds was reapproximated with a 0 Vicryl. The deep tisses were closed with a 2-0 Vicryl and the skin was closed with a running subcuticular Monocryl. The wounds were dressed with a Mepilex silver dressing. At the end of the case, all counts were correct. Hoda tolerated the procedure well without known complication and was taken to the PACU for recovery. Physical therapy will start post-operatively, weigh-bearing as tolerated with assistive devices. Anticoagulation will start within 12-24 hours. 3 doses of post-operative antibitiocis for prophylaxis will be administered.
--- NOTE | 2023-02-07 09:46 | W.PM.PROGNOT ---
Date of Service Date of service: 02/07/23 Time of Service: 09:46 Assessment and Plan Assessment and plan (1) Closed intertrochanteric fracture of right hip: Status: Acute (2) UTI (urinary tract infection): Status: Acute Exam Const General: cooperative, comfortable and no acute distress Nutritional Appearance: average body habitus Orientation: alert, awake and oriented x3 HENMT Head: normal to inspection, normocephalic and atraumatic Mouth: oral mucosae normal Chest Chest: normal inspection of the chest Resp Effort & Inspection: normal respiratory effort Auscultation: clear to auscultation bilaterally Cardio Rate: regular rate Rhythm: regular rhythm and other (Strong pedal pulse on the right sensation intact) GI Inspection: normal to inspection Palpation: soft Skin General skin exam: no rashes or lesions noted Neuro General: patient alert, patient awake, patient oriented x3 and no focal motor deficits Objective Last Vital Signs Temp 36.4 C L 02/07/23 06:59 Pulse 70 02/07/23 07:51 Resp 18 02/07/23 05:45 BP 103/62 02/07/23 06:59 Pulse Ox 92 02/07/23 06:59 Laboratory Results - last 24 hr 02/06/23 02/06/23 02/06/23 17:00 17:00 17:00 WBC 6.28 RBC 4.20 Hgb 12.6 Hct 37.2 MCV 89 MCH 30.0 MCHC 33.9 RDW 12.3 Plt Count 156 MPV 9.3 Immature Gran % 0.6 Neutrophils % 71.0 Lymphocytes % 16.7 Monocytes % 8.9 Eosinophils % 2.2 Basophils % 0.6 Nucleated RBC % 0.0 Absolute Neutrophils 4.45 Absolute Lymphocytes 1.05 L Absolute Monocytes 0.56 Absolute Eosinophils 0.14 Absolute Basophils 0.04 Sodium 134 L Potassium 4.0 Chloride 100 Carbon Dioxide 25.9 Anion Gap 8.1 BUN 17 Creatinine 0.9 Est GFR (CKD-EPI 2020) 64.23 Glucose 104 Calcium 8.5 Magnesium Total Bilirubin 0.5 AST 20 ALT 27 Alkaline Phosphatase 65 Total Protein 6.6 Albumin 3.5 TSH 1.54 Urine Color Urine Clarity Urine pH Ur Specific [place] Urine Protein Urine Ketones Urine Blood Urine Nitrite Urine Bilirubin Urine Urobilinogen Ur Leukocyte Esterase Urine RBC Urine WBC Ur Epithelial Cells Urine Crystals Urine Bacteria Urine Casts Urine Mucus Ur Culture Indicated? Urine Glucose Patient ABO/Rh Antibody Screen 02/06/23 02/06/23 02/07/23 18:40 21:04 06:04 WBC 5.55 RBC 3.85 L Hgb 11.8 Hct 34.9 L MCV 91 MCH 30.6 MCHC 33.8 RDW 12.4 Plt Count 115 L MPV 9.6 Immature Gran % Neutrophils % Lymphocytes % Monocytes % Eosinophils % Basophils % Nucleated RBC % Absolute Neutrophils Absolute Lymphocytes Absolute Monocytes Absolute Eosinophils Absolute Basophils Sodium Potassium Chloride Carbon Dioxide Anion Gap BUN Creatinine Est GFR (CKD-EPI 2020) Glucose Calcium Magnesium Total Bilirubin AST ALT Alkaline Phosphatase Total Protein Albumin TSH Urine Color Yellow Urine Clarity Sl Cloudy Urine pH 7.5 Ur Specific [place] 1.020 Urine Protein Trace H Urine Ketones 15 H Urine Blood Trace-intact H Urine Nitrite Negative Urine Bilirubin Negative Urine Urobilinogen 0.2 Ur Leukocyte Esterase Trace H Urine RBC 0-2 Urine WBC 0-2 Ur Epithelial Cells Rare Urine Crystals Moderate Amorphous Urine Bacteria Rare Urine Casts Negative Urine Mucus Negative Ur Culture Indicated? Yes Urine Glucose Negative Patient ABO/Rh A Positive Antibody Screen NEGATIVE 02/07/23 08:04 WBC RBC Hgb Hct MCV MCH MCHC RDW Plt Count MPV Immature Gran % Neutrophils % Lymphocytes % Monocytes % Eosinophils % Basophils % Nucleated RBC % Absolute Neutrophils Absolute Lymphocytes Absolute Monocytes Absolute Eosinophils Absolute Basophils Sodium 134 L Potassium 4.1 Chloride 101 Carbon Dioxide 26.9 Anion Gap 6.1 BUN 19 H Creatinine 0.9 Est GFR (CKD-EPI 2020) 64.23 Glucose 103 Calcium 7.9 L Magnesium 1.9 Total Bilirubin 0.7 AST 22 ALT 25 Alkaline Phosphatase 61 Total Protein 6.1 L Albumin 3.1 L TSH Urine Color Urine Clarity Urine pH Ur Specific [place] Urine Protein Urine Ketones Urine Blood Urine Nitrite Urine Bilirubin Urine Urobilinogen Ur Leukocyte Esterase Urine RBC Urine WBC Ur Epithelial Cells Urine Crystals Urine Bacteria Urine Casts Urine Mucus Ur Culture Indicated? Urine Glucose Patient ABO/Rh Antibody Screen
--- NOTE | 2023-02-07 10:08 | PDOC.CMIN ---
Date of service: 02/07/23 Time of Service: 10:08 Care Management Initial Assmt Initial Assessment REASON FOR HOSPITALIZATION:: Intertrochanteric fracture of right hip PREVIOUS FUNCTIONAL STATUS/SOCIAL/FAMILY SUPPORTS:: Hoda lives in a single family home in [place] with her Sung. She has 3 children. Her daughter Nahomi lives in [facility] and is very supportive. She has another daughter in [place] and a son in [place]. Hoda uses a walker at home and has a forming machine upkeep mechanic helper once a month and meals on Wheels twice a week. Hoda also has a Life Alert for herself and one for her . She is independent at baseline and cares for her who has advanced dementia. CURRENT FUNCTIONAL STATUS:: Hoda went to the OR today for repair of her fractured hip. During surgery it became apparent that her betancourt catheter was not draining. After removing and replacing it with another catheter, it was still not draining. A Ct of the abdomen was done and Hoda was found to have several very large masses in her pelvis, thought to be ovarian in origin. One mass is compressing her right ureter and she has Right sided hydronephrosis and hydroureter. She was transferred to the ICU post-operatively and efforts are being made to transfer her to a tertiary care hospital for surgery. ADVANCE DIRECTIVES:: On file. Sung [facility] Has patient been provided with info about the portal/API?: Yes Did the patient sign up for the portal?: Yes CODE STATUS:: Full Code INSURANCE COVERAGE / FINANCIAL ISSUES:: Medicare [facility] Medicare supplement CURRENT HOME/COMMUNITY SERVICES/EQUIPMENT:: homemaker, MOW, Life Alert Hoda uses a walker PRIMARY CARE PHYSICIAN:: Shawna Couch POTENTIAL DISCHARGE NEEDS:: follow up with PCP and plan of care PATIENT/FAMILY EDUCATION NEEDS:: Review of discharge instructions, limitations, medications, follow up plan, discuss Ask Me Three TRANSPORTATION:: via private vehicle with family PLAN:: Anticipate Hoda will be transferred to a tertiary care facility for urgent surgery. Transportation will be through EMS coordinated by nursing supervisor trust accounts. CM will continue to support Hoda and her discharge planning needs. PFSH All Active Problems (Updated 02/07/23 @ 14:17 by Judith Bowling MD) Hydronephrosis, right (Acute) Pelvic mass (Acute) Discharge planning issues (Acute) DVT prophylaxis (Acute) Hypotension (Acute) Intra-abdominal fluid (Acute) Closed intertrochanteric fracture of right hip (Acute) Anxiety (Chronic) ACP (advance care planning) (Acute) Restless leg syndrome (Acute) Insomnia (Acute) Orthostatic hypotension (Chronic) Anxiety with depression (Chronic) Idiopathic peripheral neuropathy (Acute) Idiopathic peripheral autonomic neuropathy (Acute) Memory loss (Acute) Abrasion of face (Acute) Facial contusion (Acute) 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 (Acute) Conductive hearing loss, external ear (Acute) Sensorineural hearing loss of both ears (Acute) Dysphagia (Acute) Dyspnea on exertion (Acute) Mild chronic gastritis (Chronic) Normal colonoscopy (Acute) Urticaria, chronic (Chronic) Dyspnea (Acute) Anxiety about health (Acute) Palliative care patient (Acute) Goals of care, counseling/discussion (Acute) MCI (mild cognitive impairment) (Acute) POLST (Physician Orders for Life-Sustaining Treatment) (Chronic) signed 01/22/21 FULL CODE Health care proxy on file (Chronic) Nahomi Breaux, daughter Alzheimer's dementia (Chronic) very mild Impacted cerumen, bilateral (Acute) Lack of motivation (Acute) Pre-syncope (Acute) Dizziness (Acute) Sinus bradycardia (Acute) Fear of (Acute) Impaired instrumental activities of daily living (Acute) Need for home health care (Acute) Medical History Allergic rhinitis Bilateral leg pain Bilateral leg weakness Cold feet Dementia mild Dizziness Fatigue Frequent PVCs Gastritis Hearing loss Hives Hx of bronchitis Hx of migraines Iliotibial band friction syndrome of both knees Ingrown toenail Insect bite Knee joint pain Lung nodule Migraine Myalgia Nail abnormality Obstructive sleep apnea Onychomycosis Osteoporosis Pain in left shoulder Palpitations Paroxysmal SVT (supraventricular tachycardia) Pelvic floor instability Peripheral neuropathy Raynauds syndrome Tubular adenoma Surgical History H/O foot surgery r foot surgerly H/O knee surgery L knee surgery-patella History of colonoscopy Hx of tonsillectomy Family History Mother , age 86 from dementia with hallucinations ? lewy body Dementia Father , age 89 from prostate cancer and malnutrition Prostate cancer Malnutrition Sister , age 80 from dementia, unspecified type Dementia Daughter No problems noted. Son No problems noted. 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
--- NOTE | 2023-02-07 11:16 | PT.INNT ---
PT Notes Visit Reasons: Right Hip Fractucred Patient is still in PACU per telephone conversation with [facility] community youth secretary/JAMES Hebert as of 11:16 AM. Will continue to follow up and determine readiness for PT once patient returns back to the med surg unit.
--- NOTE | 2023-02-07 11:56 | PT.INNT ---
PT Notes Visit Reasons: Right Hip Fractucred Per PACU nurse as of 11:57 AM, patient is still being managed and is not ready to be moved up to the med surg unit yet. Will plan on seeing patient first thing tomorrow morning for needed postoperative rehabilitation, as ordered.
--- NOTE | 2023-02-07 12:09 | W.PM.PROGNOT ---
Date of Service Date of service: 02/07/23 Time of Service: 12:09 Assessment and Plan Assessment and plan (1) Hypotension: Status: Acute Assessment and plan: Suspect intravascular depletion (since UOP improved with IV hydration), poor venous return due to the IVC compression by the large pelvic mass, delayed doses of midodrine/florinef this morning all playing a role. Continue IVF. She is off of phenylephrine at this point; should the pressor requirement resume, would give norepinephrine. Hypotension is not due to bleeding - H/H is stable. Hypotension is not due to an infectious or septic process. I would obtain an echocardiogram on Thursday. (2) Closed intertrochanteric fracture of right hip: Start date: 02/06/23 Status: Acute Assessment and plan: S/p IM nailing today by Dr Ignacio. EBL 300. Post-op H/H is stable. Defer post-op care to orthopedic surgery. (3) Pelvic mass: Status: Acute Assessment and plan: Causing R hydronephrosis, bladder compression, suspected IVC compression with autonomic sequela. Palliative care consulted. Consult CUSTOMER ENGAGEMENT REPRESENTATIVE. (4) Hydronephrosis, right: Status: Acute Assessment and plan: Would probably benefit from a nephrostomy tube, but given the fact that the patient is making urine as just reported to me and her Cr is stable, I think this is not emergent. Will c/s urology and see if they feel that this would be amenable to cystoscopy first; if not, would pursue a nephrostomy tube. (5) Orthostatic hypotension: Status: Chronic Assessment and plan: As above - suspect this has to do with venous return issues due to the large pelvic mass compressing the IVC. Continue midodrine and florinef. (6) UTI (urinary tract infection): Start date: 02/06/23 Status: Ruled-out Assessment and plan: UA is not c/w a UTI. (7) Anxiety with depression: Status: Chronic Assessment and plan: Continue bupropion, escitalopram, memantine (8) DVT prophylaxis: Status: Acute Assessment and plan: SCDs (9) Discharge planning issues: Status: Acute Assessment and plan: Full code Transfer to the ICU. C/s palliative care Anticipate need for [id number] transfer for a nephrostomy tube. Total Critical Care Time 60 minutes. Discussed with Daughter Nahomi. Subjective Subjective Interval history since last seen: I was asked to see Ms Peoples in PACU. She is s/p intramedullary fixation of proximal right femoral fx earlier today by Dr Ignacio w/ EBL of 300 cc. Prior to surgery she had a pearce catheter which was putting out dark urine, but then the catheter stopped draining. Per ultrasound of the bladder, the bladder appears full, but despite flushing of the pearce and replacing the pearce catheter twice, no urine output has been noted. The patient is finishing her 1st L of LR and is on neosynephrine. Her MAP is 60. She had not received her midodrine and florinef this am. She has no abdominal pain, CP, SOB. Exam Narrative Exam Narrative: General: Pleasant elderly female who is pale, appears comfortable in bed HEENT: EOMI, MMM Heart: RRR, no m/r/g Lungs: CTAB anteriorly Abdomen: soft, distended in the lower abdomen, nontender Extremities: no edema BLEs Objective Last Vital Signs Temp 36.7 C 02/07/23 10:12 Pulse 73 02/07/23 10:12 Resp 12 02/07/23 10:12 BP 106/49 L 02/07/23 10:12 Pulse Ox 100 02/07/23 10:12 Laboratory Results - last 24 hr 02/06/23 02/06/23 02/06/23 17:00 17:00 17:00 WBC 6.28 RBC 4.20 Hgb 12.6 Hct 37.2 MCV 89 MCH 30.0 MCHC 33.9 RDW 12.3 Plt Count 156 MPV 9.3 Immature Gran % 0.6 Neutrophils % 71.0 Lymphocytes % 16.7 Monocytes % 8.9 Eosinophils % 2.2 Basophils % 0.6 Nucleated RBC % 0.0 Absolute Neutrophils 4.45 Absolute Lymphocytes 1.05 L Absolute Monocytes 0.56 Absolute Eosinophils 0.14 Absolute Basophils 0.04 Sodium 134 L Potassium 4.0 Chloride 100 Carbon Dioxide 25.9 Anion Gap 8.1 BUN 17 Creatinine 0.9 Est GFR (CKD-EPI 2020) 64.23 Glucose 104 Calcium 8.5 Magnesium Total Bilirubin 0.5 AST 20 ALT 27 Alkaline Phosphatase 65 Total Protein 6.6 Albumin 3.5 TSH 1.54 Urine Color Urine Clarity Urine pH Ur Specific [place] Urine Protein Urine Ketones Urine Blood Urine Nitrite Urine Bilirubin Urine Urobilinogen Ur Leukocyte Esterase Urine RBC Urine WBC Ur Epithelial Cells Urine Crystals Urine Bacteria Urine Casts Urine Mucus Ur Culture Indicated? Urine Glucose Patient ABO/Rh Antibody Screen 02/06/23 02/06/23 02/07/23 18:40 21:04 06:04 WBC 5.55 RBC 3.85 L Hgb 11.8 Hct 34.9 L MCV 91 MCH 30.6 MCHC 33.8 RDW 12.4 Plt Count 115 L MPV 9.6 Immature Gran % Neutrophils % Lymphocytes % Monocytes % Eosinophils % Basophils % Nucleated RBC % Absolute Neutrophils Absolute Lymphocytes Absolute Monocytes Absolute Eosinophils Absolute Basophils Sodium Potassium Chloride Carbon Dioxide Anion Gap BUN Creatinine Est GFR (CKD-EPI 2020) Glucose Calcium Magnesium Total Bilirubin AST ALT Alkaline Phosphatase Total Protein Albumin TSH Urine Color Yellow Urine Clarity Sl Cloudy Urine pH 7.5 Ur Specific [place] 1.020 Urine Protein Trace H Urine Ketones 15 H Urine Blood Trace-intact H Urine Nitrite Negative Urine Bilirubin Negative Urine Urobilinogen 0.2 Ur Leukocyte Esterase Trace H Urine RBC 0-2 Urine WBC 0-2 Ur Epithelial Cells Rare Urine Crystals Moderate Amorphous Urine Bacteria Rare Urine Casts Negative Urine Mucus Negative Ur Culture Indicated? Yes Urine Glucose Negative Patient ABO/Rh A Positive Antibody Screen NEGATIVE 02/07/23 08:04 WBC RBC Hgb Hct MCV MCH MCHC RDW Plt Count MPV Immature Gran % Neutrophils % Lymphocytes % Monocytes % Eosinophils % Basophils % Nucleated RBC % Absolute Neutrophils Absolute Lymphocytes Absolute Monocytes Absolute Eosinophils Absolute Basophils Sodium 134 L Potassium 4.1 Chloride 101 Carbon Dioxide 26.9 Anion Gap 6.1 BUN 19 H Creatinine 0.9 Est GFR (CKD-EPI 2020) 64.23 Glucose 103 Calcium 7.9 L Magnesium 1.9 Total Bilirubin 0.7 AST 22 ALT 25 Alkaline Phosphatase 61 Total Protein 6.1 L Albumin 3.1 L TSH Urine Color Urine Clarity Urine pH Ur Specific [place] Urine Protein Urine Ketones Urine Blood Urine Nitrite Urine Bilirubin Urine Urobilinogen Ur Leukocyte Esterase Urine RBC Urine WBC Ur Epithelial Cells Urine Crystals Urine Bacteria Urine Casts Urine Mucus Ur Culture Indicated? Urine Glucose Patient ABO/Rh Antibody Screen Objective Narrative Objective Narrative: CT abdomen/pelvis: 1. There is a huge solid and cystic mass with measurements as above occupying the entire pelvis and extending up into the abdomen for approximately 8 cm above the level of the iliac crests, displacing bowel loops but without evidence of bowel obstruction.? Small amount of free fluid in the pelvis.? 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 Uterus is not seen is a separate structure either surgically absent or atrophic and compressed by the mass. 2. There is unilateral moderate right-sided hydronephrosis and hydroureter.? The lower right ureter is compressed by the mass.? The left kidney appears unremarkable.? Urinary bladder is collapsed around the Pearce catheter. 3. Right hip hardware across the recent intertrochanteric fracture of the right hip.? There are no lytic osseous lesions identified. 4. Prominent intramuscular and subcutaneous hematomas around the fracture site in the right hip this ejection of active bleeding. Time Spent with Patient Time Spent with Patient: >50 minutes Time was spent: preparing to see the patient(eg.review tests), obtaining and/or reviewing separately otained hiistory, ordering medications,tests, procedures, referring, communicating with other health childcare center administrator, indepentently interpreting results, counseling the patient and care coordination
[2023-02-07] MEDS: Midodrine 2.5 MG TAB 10 MG PO ×2 (12:10→20:50)
[2023-02-07] MEDS: Fludrocortisone 0.1 MG TAB PO ×2 (12:10→20:49)
[2023-02-07] MEDS: Normal Saline - Diluent 50 ML VIAL IJ (12:21)
[2023-02-07] MEDS: Omnipaque 350 MG/ML 100 ML BTL IJ (12:27)
--- NOTE | 2023-02-07 12:34 | DI.CT_ITS ---
Exam(s) CT ABDOMEN PELVIS W EXAM: CT ABDOMEN PELVIS W CLINICAL HISTORY: IV contrast only. TECHNIQUE: Imaging Protocol: Axial computed tomography images with coronal and sagittal reformatted images were created and reviewed CONTRAST MATERIAL: Intravenous: Omnipaque-350 100cc Oral: None COMPARISON: CT CT CHEST PE CTA from 03/06/2022 CR XR HIP RT COMPLETE AP PELVIS from 02/06/2023 FINDINGS: VISUALIZED LUNG BASES: Atelectasis in both lung bases. Heart size normal. No pericardial effusion.. ABDOMEN: LIVER: There are no focal hepatic lesions evident. Mild periportal edema in the right hepatic lobe n oted. No dilated intrahepatic ducts. CBD is not dilated. GALLBLADDER/BILIARY: No obvious gallbladder pathology. CBD is not dilated. PANCREAS: Pancreas is somewhat obscured by multiple bowel loops in the lesser sac. However, there do es not appear to be a pancreatic mass nor dilatation of the pancreatic duct. SPLEEN: Spleen is not enlarged. No obvious intrasplenic lesions. Splenic and portal veins are paten t. ADRENALS: There are no significant adrenal masses. KIDNEYS:Left kidney unremarkable. However, there is hydronephrosis and hydroureter of the right kidn ey. The right ureter at the level the pelvis is compressed between a large pelvic mass (see below) a nd the iliac vessel-right psoas muscle.. There is a Pearce catheter in collapsed urinary bladder. ABDOMINAL AORTA: Abdominal aorta is not enlarged. LYMPH NODES:There is no retroperitoneal nor paraaortic adenopathy. ABDOMINAL WALL: No evidence of significant anterior abdominal wall nor inguinal hernia. GI: Bowel loops are displaced by large pelvic mass. See below. PELVIS: GI: No evidence of appendicitis.No evidence of sigmoid diverticulitis. LYMPH NODES: There is no intrapelvic nor inguinal adenopathy. REPRODUCTIVE: There are very large pelvic masses, both solid and cystic. These are probably of ovari an origin. The large cystic mass measures 17 cm AP x 14 cm widex by 19 cm cephalocaudal. It contain s septum with concerning solid components. Off the right side of this cystic mass is a prominent arlin id mass measuring 8 cm cephalocaudal by 5 cm wide by 6 cm AP. This has similar appearance to the arlin id septal mass. There is a small amount of free fluid in the dependent aspect of the pelvis. The ut erus is not visualized as a separate structure and may be surgically absent. URINARY BLADDER: Collapsed around the Pearce catheter. OSSEOUS: There is a newly placed dynamic screw in the right hip intertrochanteric fracture. No obvio us bone lesion at this level. Opposite-left hip is intact. No other pelvic fractures identified. N o lytic nor blastic pelvic osseous lesions evident. Nonacute appearing compression fractures of T11 and and T12 noted. OTHER: There is significant hematoma within the musculature of the upper right thigh anterior to and below the level of the hip fracture. There is also hematoma within the subcutaneous and deep subcuta neous lateral tissues at this level with some contrast extravasation in this region, suggesting activ e bleeding. IMPRESSION: 1. There is a huge solid and cystic mass with measurements as above occupying the entire pelvis and e xtending up into the abdomen for approximately 8 cm above the level of the iliac crests, displacing b owel loops but without evidence of bowel obstruction. Small amount of free fluid in the pelvis. 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 Uterus is not seen is a separate structure either surgi jose j absent or atrophic and compressed by the mass. 2. There is unilateral moderate right-sided hydronephrosis and hydroureter. The lower right ureter i s compressed by the mass. The left kidney appears unremarkable. Urinary bladder is collapsed around the Pearec catheter. 3. Right hip hardware across the recent intertrochanteric fracture of the right hip. There are no ly tic osseous lesions identified. 4. Prominent intramuscular and subcutaneous hematomas around the fracture site in the right hip this ejection of active bleeding. Findings discussed by phone with the hospitalist and surgeon 02/07/2023 1:05 p.m. RADIATION DOSE DELIVERED: 689.76mGy.cm Total DLP DATA REPOSITORY: All CT scans at this facility are submitted to the National Radiology Data Registry (NRDR) Dose Index Registry (DIR) with the [employer] (A[employer]). RADIATION OPTIMIZATION: All CT scans at this facility use at least one of these dose optimization te chniques: automated exposure control; mA and/or kV adjustment per patient size (includes targeted exa ms where dose is matched to clinical indication); or iterative reconstruction.
[2023-02-07 13:07] LABS: HCT 33.6 % (36.0-46.0); HGB 11.2 g/dL (11.2-15.7)
[2023-02-07 13:19] LABS: Anion Gap 7.4 mmol/L (3-11); BUN 19 mg/dL (7-18); CO2 26.6 mmol/L (21.0-32.0); CREATININE 0.8 mg/dL (0.55-1.02); Calcium 8.3 mg/dL (8.5-10.1); Chloride 99 mmol/L (98-107); Estimated GFR 73.98 (mL/min/1.73m2); Glucose 109 mg/dL (74-106); Potassium 4.7 mmol/L (3.5-5.1); Sodium 133 mmol/L (136-145)
[2023-02-07] MEDS: ceFAZolin 1 GM/50 ML BAG IVPB (13:50)
--- NOTE | 2023-02-07 15:00 | W.ANESPOSTOP ---
Postoperative Evaluation Date, Time and Location Date Performed: 02/07/23 Time Performed: 15:00 Patient Location: Intensive Care Unit Vital Signs Most Recent Imported Vital Signs: Most Recent Vital Signs Temp Pulse Resp BP Pulse Ox 36.8 C 78 17 106/44 L 93 02/07/23 13:53 02/07/23 14:31 02/07/23 14:31 02/07/23 14:31 02/07/23 14:31 Pain Score Most Recent Pain Score: Most Recent Pain Score Pain Level 3 02/07/23 13:53 Assessment Mental Status: Awake (Alert & Oriented to Patient Baseline) Airway and Respiratory Function: Patent airway with normal (patient baseline) respiratory exam Cardiovascular Function: Hemodynamically Unstable (See Explanation) (Remained on IV Phenylephrine to support BP with MAP >60mmhg.) Hydration Status: Volume Depleted (See Note) (unclear hemodynamic status, minimal urine output.) Nausea & Vomiting: No Nausea or Vomiting Pain: Pain is tolerable per patient Peripheral Nerve Block: Patient did not receive a nerve block (SAB, but resolved after 2 hours in PACU.) Postoperative Comments:: Hospitalist consulted d/t hemodynamic instability and minimal urine output. Pt sent for urgent CT and noted with large space occupying lesion/mass of pelvis which was compressing her bladder and right ureter. Pt. transferred to ICU from PACU.
[2023-02-07] MEDS: Lactated Ringers 1,000 ML 1000 ML IV (15:20)
[2023-02-07] MEDS: Norepinephrine in D5W 8 MG/250 ML BAG 9.375 MG IV (15:21)
--- NOTE | 2023-02-07 16:15 | RT.EKG_ITS ---
APPROVED REPORT Exam: Resting ECG Reason for Exam: chest pain Patient Location: I HR:88 bpm ECG Measurements Heart Rate 88 AXIS MT 138 P 54 QRSd 96 QRS -6 QT 342 T 102 QTc 414 Conclusion Sinus rhythm...normal P axis, V-rate 50- 99 Probable anteroseptal infarct, recent...Q, ST>0.15mV, T neg, V1-V2 Baseline wander in lead(s) II
[2023-02-07] MEDS: MORPHine 2 MG/ML SYR 1 MG IVP (16:35)
[2023-02-07 17:15] LABS: Troponin I 1150 ng/L (<or=60)
[2023-02-07 17:27] LABS: Bilirubin Negative (Negative); Blood Moderate (Negative); Clarity Clear (Clear); Glucose Negative (Negative); Ketones 40 mg/dL (Negative); Leukocyte Esterase Negative (Negative); Nitrite Negative (Negative); Specific Gravity 1.015 (1.005-1.025); Urobilinogen 0.2 mg/dL (Up to 0.2); pH 5.5 (5-8)
[2023-02-07 17:40] LABS: RBC >50 HPF (0-2); WBC 0-2 HPF (0-5)
[2023-02-07 17:41] LABS: Bacteria Negative HPF (Negative); C & S Indicated? No; Casts 0-2 Hyaline LPF (Negative); Crystals Negative HPF (Negative); Epithelial Cells Negative HPF (Negative); Mucus Negative (Negative)
[2023-02-07] MEDS: Aspirin E.C. 325 MG TABEC PO (17:49)
--- NOTE | 2023-02-07 17:52 | DSE_ITS ---
Date of service: 02/07/23 Time of Service: 17:53 DS: Diagnosis Discharge Diagnosis (1) Hypotension: Status: Acute (2) NSTEMI (non-ST elevated myocardial infarction): Status: Acute (3) Pelvic mass: Status: Acute (4) Closed intertrochanteric fracture of right hip: Status: Acute (5) Hydronephrosis, right: Status: Acute (6) Hematoma of right thigh: Status: Acute (7) Orthostatic hypotension: Status: Chronic (8) Anxiety with depression: Status: Chronic Discharge Plan Disposition Patient Disposition: Transfer-Acute Inpatient Care Specific Acute Inpt Facility: [facility] Condition: Serious Discharge Details Reason For Visit: Right Hip Fractucred Admit Date/Time: 02/06/23 21:17 Admit Provider: Stan Rodriguez Attending Provider: Stan Rodriguez Primary Care Provider: Shawna Couch V Hospital Course Hospital Course: Ms Peoples is an 82 year old female with PMHx of orthostatic hypotension, on midodrine and florinef, chronic urinary incontinence, anxiety and depression, mild Alzheimer's dementia, who still makes her own decisions (daughter Nahomi Breaux is DPOA - [phone]), who presented to [facility] ED after having a mechanical fall in her yard while picking berries and sustaining a comminuted intertrochanteric fracture of her R femur. She had been undergoing an outpatient workup for a pelvic mass palpated by PCP on physical exam and was expected to have a CT abdomen/pelvis next week. She underwent a right intramedullary fixation of her right femur by Dr Ignacio with spinal anesthesia (EBL 300 cc). Postoperatively, she was noted to be hypotensive and requiring neosynephrine, initially thought to be due to the fact that her morning midodrine and florinef were given late. However, this hypotension persisted and the patient ended up being transferred from PACU to the ICU for further evaluation and treatment. While in PACU, the patient's UOP in the betancourt catheter abruptly dropped off. The catheter was flushed without return. The patient had a distended abdomen, and a bladder scan as well as an ultrasound demonstrated a large residual, resulting in two attempts to place a different betancourt catheter, none of which resulted in urinary return. CT of the abdomen/pelvis was obtained to ensure that there was not ascites or another pelvic collection (such as blood). While the CT did not show acute intraabddominal bleeding, it did reveal a large likely ovarian mass, described as solid and cystic, causing R hydronephrosis due to compression of the right ureter by the mass. There was also evidence of prominent muscular and subcutaneous hematomas at the site of fracture of the right hip with evidence of active bleeding. Repeat H/H postoperatively was stable (11.2/33.6 down from 11.8/34.9 in the morning). This finding was reviewed with orthopedic surgery and was felt to be expected given the fracture and recent surgery. With IV hydration and vasopressor support, the patient is now making urine. Her creatinine is 0.8. However, the vasopressor requirement persists. She has had no leucocytosis, fever, or obvious source of infection. Her UA is negative, and she has no respiratory findings. CXR on admission was negative. At about 16:30, the patient reported chest pain throughout her chest bilaterally. This appears to have resolved as the vasopressor was titrated down. Her EKG showed diffuse borderlie ST depressions with the exception of borderline ST elevation in lead V2. These findings were already present on the original EKG on admission, but do appear more obvious on repeat EKG. Her high sensitivity troponin I is 1150 ng/L with repeat pending at 19:30. She was prescribed aspirin and a cardiology consult is pending at this time. The case was evaluated by Dr Carballo of gynecology who recommends transfer to a tertiary care facility for gynecologic oncology surgery. I discussed the case with Dr Manley, who agrees to see the patient once she is transferred to the critical care service, and the patient was accepted to the Blue Team under the care of Dr Jackson. General surgery was consulted for central line placement as the patient is still requiring norepinephrine. At this time, cardiology recommendations are still pending. Additional Critical Care time spent on care for patient, coordination of transfer, and documentation is 45 minutes. Please, see MAR for list of inpatient medications. The list of medications below reflects outpatient prescriptions. Home Meds and New Rx's Prescriptions: No Action ascorbic acid (vitamin C) PO diclofenac sodium 1 % gel 2 g topical QID Rx Instructions: apply to single elbow, wrist or hand; for hand includes palm/fingers/back of hand methylphenidate HCl 5 mg tablet 5 mg PO BID MDD 10mg PRN (Reason: energy) Qty: 20 0RF Rx Instructions: take one pill, once or twice daily, as needed - Please use symptom log! If taking an afternoon dose, take before 2pm ropinirole 0.5 mg tablet 0.25 mg PO QHS Rx Instructions: administer 1-3 hours before bedtime memantine 10 mg tablet 10 mg PO BID Qty: 180 3RF gabapentin 300 mg capsule 300 mg PO QHS Refresh Contacts Drops 1 drp ophthalmic (eye) BID bupropion HCl [Wellbutrin SR] 100 mg tablet sustained-release 12 hr 100 mg PO BID Qty: 60 1RF Rx Instructions: dose increase to 100mg twice per day cyanocobalamin (vitamin B-12) 1,000 mcg capsule 1,000 mcg PO DAILY clobetasol 0.05 % cream 1 applic topical BID cholecalciferol (vitamin D3) 25 mcg (1,000 unit) capsule 25 mcg PO DAILY (DME) Oxygen Tank See Rx Instructions .Route Rx Instructions: As directed rivastigmine [Exelon Patch] 4.6 mg/24 hour patch 24 hour 4.6 mg TD DAILY Qty: 90 3RF aspirin [Aspirin Low-Strength] 81 MG tablet,chewable 81 mg PO DAILY Centrum Silver 1 EACH tablet 1 tab PO DAILY escitalopram oxalate 10 mg tablet 15 mg PO DAILY Tylenol PM 25-500 mg-mg/mL Solution 1 ml PO HS Fish Oil 1 EACH capsule 1 cap PO DAILY midodrine 10 mg tablet 10 mg PO TID Qty: 90 0RF Rx Instructions: do not give last dose of day after 6PM or within 4 hrs of bedtime fexofenadine 180 mg Tablet 180 mg PO DAILY Qty: 30 0RF fludrocortisone 0.1 mg Tablet 0.1 mg PO BID Qty: 60 0RF Discharge Instructions Referrals: Mercedes Manley [ NON-[facility] STAFF PHYSICIAN] - Activity:: bedrest, turn Q2 hrs Equipment/Supplies:: No Equipment Needed Diet:: As Tolerated Discharge Orders Discharge Orders: Discharge Order (Routine); Ordered 02/07/23 Ordered By: Judith Bowling DS: Summary Time Spent with Patient providing and/or coordinating discharge services: Greater than 30 minutes Status at Discharge Functional status at discharge: bed bound Overall status at discharge: patient is not back to baseline Mental Status: mental status grossly normal Speech and Movement: speech and movement normal Mood: congruent mood Affect: normal affect Exam Narrative Exam Narrative: General: Pleasant elderly female who is pale, appears comfortable in bed HEENT: EOMI, MMM Heart: RRR, no m/r/g Lungs: CTAB anteriorly Abdomen: soft, distended in the lower abdomen, nontender Extremities: no edema BLEs Psych Mental Status: mental status grossly normal Speech and Movement: speech and movement normal Mood: congruent mood Affect: normal affect DS: Data Vitals/I&O Vitals and I&O: Vital Signs Temperature 36.3 C L 02/07/23 17:45 Temperature Source Temporal Artery Scan 02/07/23 17:45 Pulse 94 H 02/07/23 17:45 Pulse Rhythm Regular 02/07/23 07:25 Pulse 97 H 02/07/23 17:31 Respiratory Rate 20 02/07/23 17:45 Respiratory Effort Normal, Non-Labored 02/07/23 13:53 Respiratory Depth Normal 02/07/23 13:53 Respiratory Pattern Normal 02/07/23 13:53 Blood Pressure 92/76 L 02/07/23 17:45 Blood Pressure Mean 79 02/07/23 17:31 Blood Pressure Position Sitting 02/06/23 16:45 Pulse Oximetry 94 02/07/23 17:45 Respiratory End-tidal CO2 33 02/07/23 12:18 Oxygen Delivery Method Room Air 02/07/23 17:45 Oxygen Flow Rate 0 02/07/23 17:45 Pain Level 0 02/07/23 17:45 Comment RN notified 02/07/23 05:45 Intake & Output 02/06/23 02/07/23 02/07/23 23:59 11:59 23:59 Intake Total 100 / 100 578.825 / 1293.314 714.489 / 1293.314 Output Total 750 / 1000 250 / 1000 Balance 100 / 100 -171.175 / 293.314 464.489 / 293.314 Weight 70.3 kg 72.235 kg 72.23 kg Intake: IV 100 / 100 578.825 / 1143.314 564.489 / 1143.314 Oral 0 / 150 150 / 150 Output: Urine 450 / 700 250 / 700 Emesis 0 / 0 0 / 0 Estimated Blood Loss 300 / 300 Other: Urine Color Yellow Brown Yellow Urine Appearance Clear Sediment Comment BLADDER SCAN SHOWING FULL BLADDER; NO OUTPUT WITH REPLACING CATHETER, ADJUSTING THE CATHETER; SENT FOR STAT CT bladder collapse seen on CT second to ovarian mass Emesis Description None None Data Completed and Pending Completed studies during hospitalization [Text1]: XR R hip 02/06/23: Comminuted intertrochanteric fracture of the right hip. CXR 02/06/23: No acute pulmonary findings on this single AP portable view of the chest. Chronic elevation of the right hemidiaphragm again noted. CT abdomen/pelvis 02/07/23: 1. There is a huge solid and cystic mass with measurements as above occupying the entire pelvis and extending up into the abdomen for approximately 8 cm above the level of the iliac crests, displacing bowel loops but without evidence of bowel obstruction.? Small amount of free fluid in the pelvis.? 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 Uterus is not seen is a separate structure either surgically absent or atrophic and compressed by the mass. 2. There is unilateral moderate right-sided hydronephrosis and hydroureter.? The lower right ureter is compressed by the mass.? The left kidney appears unremarkable.? Urinary bladder is collapsed around the Betancourt catheter. 3. Right hip hardware across the recent intertrochanteric fracture of the right hip.? There are no lytic osseous lesions identified. 4. Prominent intramuscular and subcutaneous hematomas around the fracture site in the right hip this ejection of active bleeding. Labs on day of discharge: Labs from last 24 hours 02/07/23 02/07/23 02/07/23 19:30 17:32 17:00 WBC RBC Hgb Hct MCV MCH MCHC RDW Plt Count MPV VBG Lactate Pending Sodium Potassium Chloride Carbon Dioxide Anion Gap BUN Creatinine Est GFR (CKD-EPI 2020) Glucose Calcium Magnesium Total Bilirubin AST ALT Alkaline Phosphatase Troponin I Pending Total Protein Albumin TSH Urine Color Yellow Urine Clarity Clear Urine pH 5.5 Ur Specific Richardson 1.015 Urine Protein 100 H Urine Ketones 40 H Urine Blood Moderate H Urine Nitrite Negative Urine Bilirubin Negative Urine Urobilinogen 0.2 Ur Leukocyte Esterase Negative Urine RBC >50 H Urine WBC 0-2 Ur Epithelial Cells Negative Urine Crystals Negative Urine Bacteria Negative Urine Casts 0-2 Hyaline Urine Mucus Negative Ur Culture Indicated? No Urine Glucose Negative Patient ABO/Rh Antibody Screen 02/07/23 02/07/23 02/07/23 16:47 13:00 13:00 WBC RBC Hgb 11.2 Hct 33.6 L MCV MCH MCHC RDW Plt Count MPV VBG Lactate Sodium 133 L Potassium 4.7 Chloride 99 Carbon Dioxide 26.6 Anion Gap 7.4 BUN 19 H Creatinine 0.8 Est GFR (CKD-EPI 2020) 73.98 Glucose 109 H Calcium 8.3 L Magnesium Total Bilirubin AST ALT Alkaline Phosphatase Troponin I 1150 H* Total Protein Albumin TSH Urine Color Urine Clarity Urine pH Ur Specific Richardson Urine Protein Urine Ketones Urine Blood Urine Nitrite Urine Bilirubin Urine Urobilinogen Ur Leukocyte Esterase Urine RBC Urine WBC Ur Epithelial Cells Urine Crystals Urine Bacteria Urine Casts Urine Mucus Ur Culture Indicated? Urine Glucose Patient ABO/Rh Antibody Screen 02/07/23 02/07/23 02/06/23 08:04 06:04 21:04 WBC 5.55 RBC 3.85 L Hgb 11.8 Hct 34.9 L MCV 91 MCH 30.6 MCHC 33.8 RDW 12.4 Plt Count 115 L MPV 9.6 VBG Lactate Sodium 134 L Potassium 4.1 Chloride 101 Carbon Dioxide 26.9 Anion Gap 6.1 BUN 19 H Creatinine 0.9 Est GFR (CKD-EPI 2020) 64.23 Glucose 103 Calcium 7.9 L Magnesium 1.9 Total Bilirubin 0.7 AST 22 ALT 25 Alkaline Phosphatase 61 Troponin I Total Protein 6.1 L Albumin 3.1 L TSH Urine Color Urine Clarity Urine pH Ur Specific Richardson Urine Protein Urine Ketones Urine Blood Urine Nitrite Urine Bilirubin Urine Urobilinogen Ur Leukocyte Esterase Urine RBC Urine WBC Ur Epithelial Cells Urine Crystals Urine Bacteria Urine Casts Urine Mucus Ur Culture Indicated? Urine Glucose Patient ABO/Rh A Positive Antibody Screen NEGATIVE 02/06/23 02/06/23 18:40 17:00 WBC RBC Hgb Hct MCV MCH MCHC RDW Plt Count MPV VBG Lactate Sodium Potassium Chloride Carbon Dioxide Anion Gap BUN Creatinine Est GFR (CKD-EPI 2020) Glucose Calcium Magnesium Total Bilirubin AST ALT Alkaline Phosphatase Troponin I Total Protein Albumin TSH 1.54 Urine Color Yellow Urine Clarity Sl Cloudy Urine pH 7.5 Ur Specific Richardson 1.020 Urine Protein Trace H Urine Ketones 15 H Urine Blood Trace-intact H Urine Nitrite Negative Urine Bilirubin Negative Urine Urobilinogen 0.2 Ur Leukocyte Esterase Trace H Urine RBC 0-2 Urine WBC 0-2 Ur Epithelial Cells Rare Urine Crystals Moderate Amorphous Urine Bacteria Rare Urine Casts Negative Urine Mucus Negative Ur Culture Indicated? Yes Urine Glucose Negative Patient ABO/Rh Antibody Screen Preliminary micro results at discharge 02/06/23 18:40 Urine Culture - Preliminary Urine - Reflex from [facility] access [facility] All Active Problems (Updated 02/07/23 @ 17:55 by Judith Bowling MD) Hematoma of right thigh (Acute) NSTEMI (non-ST elevated myocardial infarction) (Acute) Hydronephrosis, right (Acute) Pelvic mass (Acute) Discharge planning issues (Acute) DVT prophylaxis (Acute) Hypotension (Acute) Intra-abdominal fluid (Acute) Closed intertrochanteric fracture of right hip (Acute) Anxiety (Chronic) ACP (advance care planning) (Acute) Restless leg syndrome (Acute) Insomnia (Acute) Orthostatic hypotension (Chronic) Anxiety with depression (Chronic) Idiopathic peripheral neuropathy (Acute) Idiopathic peripheral autonomic neuropathy (Acute) Memory loss (Acute) Abrasion of face (Acute) Facial contusion (Acute) 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 (Acute) Conductive hearing loss, external ear (Acute) Sensorineural hearing loss of both ears (Acute) Dysphagia (Acute) Dyspnea on exertion (Acute) Mild chronic gastritis (Chronic) Normal colonoscopy (Acute) Urticaria, chronic (Chronic) Dyspnea (Acute) Anxiety about health (Acute) Palliative care patient (Acute) Goals of care, counseling/discussion (Acute) MCI (mild cognitive impairment) (Acute) POLST (Physician Orders for Life-Sustaining Treatment) (Chronic) signed 01/22/21 FULL CODE Health care proxy on file (Chronic) Nahomi Breaux, daughter Alzheimer's dementia (Chronic) very mild Impacted cerumen, bilateral (Acute) Lack of motivation (Acute) Pre-syncope (Acute) Dizziness (Acute) Sinus bradycardia (Acute) Fear of (Acute) Impaired instrumental activities of daily living (Acute) Need for home health care (Acute) Medical History Allergic rhinitis Bilateral leg pain Bilateral leg weakness Cold feet Dementia mild Dizziness Fatigue Frequent PVCs Gastritis Hearing loss Hives Hx of bronchitis Hx of migraines Iliotibial band friction syndrome of both knees Ingrown toenail Insect bite Knee joint pain Lung nodule Migraine Myalgia Nail abnormality Obstructive sleep apnea Onychomycosis Osteoporosis Pain in left shoulder Palpitations Paroxysmal SVT (supraventricular tachycardia) Pelvic floor instability Peripheral neuropathy Raynauds syndrome Tubular adenoma Surgical History H/O foot surgery r foot surgerly H/O knee surgery L knee surgery-patella History of colonoscopy Hx of tonsillectomy Family History Mother , age 86 from dementia with hallucinations ? lewy body Dementia Father , age 89 from prostate cancer and malnutrition Prostate cancer Malnutrition Sister , age 80 from dementia, unspecified type Dementia Daughter No problems noted. Son No problems noted. 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 Do you think of yourself as: straight/heterosexual Current gender identity: female What is your relationship status?: How often do you talk on the phone with friends or family?: three or more times per week How often do you get together with friends or relatives?: three or more times per week Panel score (0-1 are the most socially isolated patients): 2 What type of physical activity do you participate in: walking Duration: < 15 minutes/day Frequency: does not exercise Special antoinette needs: No Seatbelt use: always Do you feel safe at home: Yes Do you feel safe in your relationship?: Yes Time Spent with Patient Time Spent with Patient: 45-69 minutes Time was spent: preparing to see the patient(eg.review tests), obtaining and/or reviewing separately otained hiistory, ordering medications,tests, procedures, referring, communicating with other health respiratory care assistant, indepentently interpreting results, counseling the patient and care coordination
[2023-02-07 18:21] LABS: Lab Add On Test DONE
[2023-02-07 18:52] LABS: Procalcitonin < 0.1 ng/mL
--- NOTE | 2023-02-07 19:20 | DI.RAD_ITS ---
Exam(s) XR PORTABLE CHEST AP EXAM: XR PORTABLE CHEST AP CLINICAL HISTORY: central line placement TECHNIQUE: 2D digital imaging was performed. COMPARISON: CT CT CHEST PE CTA from 03/06/2022 CR XR CHEST 1V IN DI DEPT from 02/06/2023 FINDINGS: A left-sided PICC line has been inserted with the tip in the SVC. LUNGS: Clear. No pleural abnormality seen. HEART: Normal size. AORTA: Normal diameter. BONES: Scoliosis. T11 compression fracture. This was present on prior PE CT. Soft tissues: Unremarkable. IMPRESSION: Satisfactory placement of PICC line. DATA REPOSITORY: RADIATION DOSE DELIVERED:
--- NOTE | 2023-02-07 19:25 | SCONE_ITS ---
Date of service: 02/07/23 Time of Service: 19:25 Assessment and Plan Assessment and plan (1) Hypotension: Status: Acute Assessment and plan: Ms. Peoples is a pleasant 82-year-old female with hypertension after hip surgery. She was also found to have a large ovarian mass which is cystic and solid suspic ious for malignancy. She has small peripheral IVs and [facility] requested a central line prior to transfer. I discussed the procedure with the patient and her daughter as well as the risks and benefits. Complications include but are not limited to bleeding, infection, injury to artery or vein, pneumothorax, and blood clot. Questions were entertained and answered to her satisfaction and she wished to proceed. No guarantees were given or implied. Please see separate operative note. History of Present Illness Narrative: Mrs Peoples is a pleasant 82-year-old female who was admitted yesterday with a broken right hip. She underwent surgery today with Dr. Ignacio. She was hypotensive in PACU and has continued to be hypotensive throughout the day. A CT scan was done as her abdomen was quite distended and she was not having any urine output. CT scan showed a large ovarian mass which had solid and cystic components. This mass was compressing the bladder as well as the right ureter. There is hydronephrosis of the right kidney. They were trying to wean her Toro all afternoon but have been unsuccessful. The patient is scheduled to go down to [facility]. She has 2 small peripheral IVs which [facility] did not feel were adequate for resuscitation especially on the trip down to 2 them. I was called and asked to place a central line. When I walked in the room the patient is alert and oriented. Her daughter is with her. Consults Consult date: 02/07/23 Requesting physician: Judith Bowling [facility] All Active Problems Hematoma of right thigh (Acute) NSTEMI (non-ST elevated myocardial infarction) (Acute) Hydronephrosis, right (Acute) Pelvic mass (Acute) Discharge planning issues (Acute) DVT prophylaxis (Acute) Hypotension (Acute) Intra-abdominal fluid (Acute) Closed intertrochanteric fracture of right hip (Acute) Anxiety (Chronic) ACP (advance care planning) (Acute) Restless leg syndrome (Acute) Insomnia (Acute) Orthostatic hypotension (Chronic) Anxiety with depression (Chronic) Idiopathic peripheral neuropathy (Acute) Idiopathic peripheral autonomic neuropathy (Acute) Memory loss (Acute) Abrasion of face (Acute) Facial contusion (Acute) 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 (Acute) Conductive hearing loss, external ear (Acute) Sensorineural hearing loss of both ears (Acute) Dysphagia (Acute) Dyspnea on exertion (Acute) Mild chronic gastritis (Chronic) Normal colonoscopy (Acute) Urticaria, chronic (Chronic) Dyspnea (Acute) Anxiety about health (Acute) Palliative care patient (Acute) Goals of care, counseling/discussion (Acute) MCI (mild cognitive impairment) (Acute) POLST (Physician Orders for Life-Sustaining Treatment) (Chronic) signed 01/22/21 FULL CODE Health care proxy on file (Chronic) Nahomi Breaux, daughter Alzheimer's dementia (Chronic) very mild Impacted cerumen, bilateral (Acute) Lack of motivation (Acute) Pre-syncope (Acute) Dizziness (Acute) Sinus bradycardia (Acute) Fear of (Acute) Impaired instrumental activities of daily living (Acute) Need for home health care (Acute) Medical History Allergic rhinitis Bilateral leg pain Bilateral leg weakness Cold feet Dementia mild Dizziness Fatigue Frequent PVCs Gastritis Hearing loss Hives Hx of bronchitis Hx of migraines Iliotibial band friction syndrome of both knees Ingrown toenail Insect bite Knee joint pain Lung nodule Migraine Myalgia Nail abnormality Obstructive sleep apnea Onychomycosis Osteoporosis Pain in left shoulder Palpitations Paroxysmal SVT (supraventricular tachycardia) Pelvic floor instability Peripheral neuropathy Raynauds syndrome Tubular adenoma Surgical History H/O foot surgery r foot surgerly H/O knee surgery L knee surgery-patella History of colonoscopy Hx of tonsillectomy Family History Mother , age 86 from dementia with hallucinations ? lewy body Dementia Father , age 89 from prostate cancer and malnutrition Prostate cancer Malnutrition Sister , age 80 from dementia, unspecified type Dementia Daughter No problems noted. Son No problems noted. 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 Do you think of yourself as: straight/heterosexual Current gender identity: female What is your relationship status?: How often do you talk on the phone with friends or family?: three or more times per week How often do you get together with friends or relatives?: three or more times per week Panel score (0-1 are the most socially isolated patients): 2 What type of physical activity do you participate in: walking Duration: < 15 minutes/day Frequency: does not exercise Special antoinette needs: No Seatbelt use: always Do you feel safe at home: Yes Do you feel safe in your relationship?: Yes Exam Const General: cooperative, comfortable and no acute distress Nutritional Appearance: thin Orientation: alert and oriented x3 HENMT Head: normocephalic and atraumatic Resp Effort & Inspection: normal respiratory effort Results Last Vital Signs Temp 97.3 F L 02/07/23 18:00 Pulse 75 02/07/23 18:00 Resp 20 02/07/23 18:00 BP 92/76 L 02/07/23 17:45 Pulse Ox 94 02/07/23 18:00 Labs 02/07/23 13:00 02/07/23 13:00 Labs: Laboratory Results - last 24 hr 02/06/23 02/06/23 02/07/23 17:00 21:04 06:04 WBC 5.55 RBC 3.85 L Hgb 11.8 Hct 34.9 L MCV 91 MCH 30.6 MCHC 33.8 RDW 12.4 Plt Count 115 L MPV 9.6 Sodium Potassium Chloride Carbon Dioxide Anion Gap BUN Creatinine Est GFR (CKD-EPI 2020) Glucose Calcium Magnesium Total Bilirubin AST ALT Alkaline Phosphatase Troponin I Total Protein Albumin Procalcitonin TSH 1.54 Urine Color Urine Clarity Urine pH Ur Specific [place] Urine Protein Urine Ketones Urine Blood Urine Nitrite Urine Bilirubin Urine Urobilinogen Ur Leukocyte Esterase Urine RBC Urine WBC Ur Epithelial Cells Urine Crystals Urine Bacteria Urine Casts Urine Mucus Ur Culture Indicated? Urine Glucose Add-On Test Request Patient ABO/Rh A Positive Antibody Screen NEGATIVE 02/07/23 02/07/23 02/07/23 08:04 13:00 13:00 WBC RBC Hgb 11.2 Hct 33.6 L MCV MCH MCHC RDW Plt Count MPV Sodium 134 L 133 L Potassium 4.1 4.7 Chloride 101 99 Carbon Dioxide 26.9 26.6 Anion Gap 6.1 7.4 BUN 19 H 19 H Creatinine 0.9 0.8 Est GFR (CKD-EPI 2020) 64.23 73.98 Glucose 103 109 H Calcium 7.9 L 8.3 L Magnesium 1.9 Total Bilirubin 0.7 AST 22 ALT 25 Alkaline Phosphatase 61 Troponin I Total Protein 6.1 L Albumin 3.1 L Procalcitonin TSH Urine Color Urine Clarity Urine pH Ur Specific [place] Urine Protein Urine Ketones Urine Blood Urine Nitrite Urine Bilirubin Urine Urobilinogen Ur Leukocyte Esterase Urine RBC Urine WBC Ur Epithelial Cells Urine Crystals Urine Bacteria Urine Casts Urine Mucus Ur Culture Indicated? Urine Glucose Add-On Test Request Patient ABO/Rh Antibody Screen 02/07/23 02/07/23 02/07/23 16:45 16:47 17:00 WBC RBC Hgb Hct MCV MCH MCHC RDW Plt Count MPV Sodium Potassium Chloride Carbon Dioxide Anion Gap BUN Creatinine Est GFR (CKD-EPI 2020) Glucose Calcium Magnesium Total Bilirubin AST ALT Alkaline Phosphatase Troponin I 1150 H* Total Protein Albumin Procalcitonin < 0.1 TSH Urine Color Yellow Urine Clarity Clear Urine pH 5.5 Ur Specific [place] 1.015 Urine Protein 100 H Urine Ketones 40 H Urine Blood Moderate H Urine Nitrite Negative Urine Bilirubin Negative Urine Urobilinogen 0.2 Ur Leukocyte Esterase Negative Urine RBC >50 H Urine WBC 0-2 Ur Epithelial Cells Negative Urine Crystals Negative Urine Bacteria Negative Urine Casts 0-2 Hyaline Urine Mucus Negative Ur Culture Indicated? No Urine Glucose Negative Add-On Test Request Patient ABO/Rh Antibody Screen 02/07/23 Unknown WBC RBC Hgb Hct MCV MCH MCHC RDW Plt Count MPV Sodium Potassium Chloride Carbon Dioxide Anion Gap BUN Creatinine Est GFR (CKD-EPI 2020) Glucose Calcium Magnesium Total Bilirubin AST ALT Alkaline Phosphatase Troponin I Total Protein Albumin Procalcitonin TSH Urine Color Urine Clarity Urine pH Ur Specific [place] Urine Protein Urine Ketones Urine Blood Urine Nitrite Urine Bilirubin Urine Urobilinogen Ur Leukocyte Esterase Urine RBC Urine WBC Ur Epithelial Cells Urine Crystals Urine Bacteria Urine Casts Urine Mucus Ur Culture Indicated? Urine Glucose Add-On Test Request DONE Patient ABO/Rh Antibody Screen Imaging Abdomen CT scan report/results: report reviewed and image reviewed CT scan - pelvis: report reviewed and image reviewed
[2023-02-07 19:32] LABS: Lactate 1.4 mmol/L (0.6-1.4)
--- NOTE | 2023-02-07 19:34 | ROE_ITS ---
Date of service: 02/07/23 Time of Service: 19:34 Operative Note Operative Note DATE OF PROCEDURE: 02/07/23 PRE-OP DIAGNOSIS: hypotension, need for better IV access POST-OP DIAGNOSIS: same PROCEDURE: Left subclavian central line placement SURGEON: Claudia Phelps [employer]URAL SERVICE ENGINEER: José Miguel Greco ANESTHESIA TYPE: Local By Surgeon Refer to Anesthesia Record ESTIMATED BLOOD LOSS: 3 PATHOLOGY: none sent COMPLICATIONS: None Patient was transported to: no change Patient's condition: stable Indications: Ms. Watts is a pleasant 82-year-old female who is status post hip surgery. The patient has been hypotensive since surgery. She has 2 small peripheral IVs. She will is in the process of getting transferred to [facility] and [facility] has asked for better IV access for transfer. I have discussed the procedure as well as the risks with the patient and her daughter and they both agree and wish to proceed. They seem to have a good understanding of the procedure and its complications. Procedure Description: After informed consent was obtained the patient was placed in a supine posi tion on her ICU bed. The head of the bed was lowered. A time out was done and her name, and procedure to be done were reviewed. Sharps were counted. The left chest wall was then prepped and draped in a standard fashion with chlorhexidine. Next 5 cc of 1% Lidocaine was injected into the dermis and subcutaneous tissue along the left clavicle. The introducer needle was then slowly advanced into the subclavian vein. Once I was able to pull venous blood into the syringe, the syringe was removed from the needle. The guidewire was then placed easily without resistance into the subclavian vein. The needle was removed. A small incision was made with an 11 blade next to the guidewire. The dilator was then placed over the guidewire into the vein. The dilator was removed and the francesco le lumen catheter was placed over the guidewire into the vein to 15 cm. The guidewire was removed and needless valves were placed on each lumen. Each lumen was then aspirated and flushed with sterile saline. The Central line was then secured in place with 2-0 silk suture. The skin was cleaned and dried and an antibiotic wheel was applied at the skin entrance. An occlusive dressing was then applied. The drapes were removed. Sharps were counted and were correct at the end of the procedure. The patient tolerated the procedure well. Stat CXR was ordered and was pending at the time of this dictation.
--- NOTE | 2023-02-07 19:45 | DI.VRAD_ITS ---
PROCEDURE INFORMATION: Exam: XR Chest Exam date and time: 02/07/2023 7:13 PM Age: 82 years old Clinical indication: Other: Central line placement TECHNIQUE: Imaging protocol: Radiologic exam of the chest. Views: 1 view. COMPARISON: CR XR CHEST 1V IN DI DEPT 02/06/2023 6:02 PM FINDINGS: Tubes, catheters and devices: There is a left-sided PICC in situ terminating in the expected location of the superior vena cava. Lungs: No pulmonary consolidation is seen. Pleural spaces: No pleural effusion or pneumothorax is demonstrated. Heart/Mediastinum: Heart size is normal. Diaphragm: There is mild elevation of the right hemidiaphragm. Bones/joints: Vertebral compression fractures are noted in the lower thoracic region, uncertain age, not well evaluated by the frontal chest exam. Mild S-shaped spinal curvature. IMPRESSION: 1. Left-sided PICC in situ with its tip in the expected location of the superior vena cava. 2. Lower thoracic vertebral compression fractures, uncertain chronicity, not well evaluated by the frontal chest exam. Dictated and Authenticated by: Harsh Renteria MD. Ordering:YADIEL Taylor MD
[2023-02-07 20:00] LABS: Troponin I 5804 ng/L (<or=60)
[2023-02-07] MEDS: buPROPion-CR 100 MG TABCR PO (20:49)
[2023-02-07] MEDS: Refresh PLUS Eye Drops 0.4ml OP (20:50)
[2023-02-07] MEDS: Memantine 5 MG TAB 10 MG PO (20:50)
== END 2023-02-07 20:43 | disposition short-term general hospital (02) | DRG 480 ==
LOC: ER 20:44 → MS 21:54 → ICU 02-07 12:45
PROVIDERS: Internal Medicine; Student in an Organized Health Care Education/Training Program; Admitting Provider Family Medicine; Emergency Provider Nurse Practitioner Acute Care; PCP Family Medicine; Visit Provider Family Medicine
PROC: 0QS606Z Reposition Right Upper Femur with Intramedullary Internal Fixation Device, Open Approach (ICD-10-PCS; CPT 27245; principal; 2023-02-07 08:00)
DX: S72.141A Displaced intertrochanteric fracture of right femur, initial encounter for closed fracture (principal); I21.4 Non-ST elevation (NSTEMI) myocardial infarction; N13.30 Unspecified hydronephrosis; N39.0 Urinary tract infection, site not specified; I95.1 Orthostatic hypotension; F41.8 Other specified anxiety disorders; G25.81 Restless legs syndrome; G47.00 Insomnia, unspecified; G60.8 Other hereditary and idiopathic neuropathies; H90.3 Sensorineural hearing loss, bilateral; G30.9 Alzheimer's disease, unspecified; F02.A0 Dementia in other diseases classified elsewhere, mild, without behavioral disturbance, psychotic disturbance, mood disturbance, and anxiety; K29.50 Unspecified chronic gastritis without bleeding; W01.0XXA Fall on same level from slipping, tripping and stumbling without subsequent striking against object, initial encounter; N83.8 Other noninflammatory disorders of ovary, fallopian tube and broad ligament; R32 Unspecified urinary incontinence; S70.01XA Contusion of right hip, initial encounter
CPT/HCPCS: 27245; 36558; 36415; 36592; 80048; 80053; 82306; 84145; 85027; 86850; 86900; 86901; 93005; 96365; 96375; 96376; 99222; 99223; 99285; 71045; 73501; 73502; 74177; 81003; 81015; 83605; 83735; 84443; 84484; 85014; 85018; 85025; 87086; 93010; 99291; 99292; J0131; J0690; J1100; J1170; J2001; J2270; J2371; J2405; J2704; J3490

== ENCOUNTER → 2023-02-09 07:45 | Outpatient (BNVA) | payer MEDICARE, SELFPAY | PROVIDERS: PCP Family Medicine; Referring Provider Family Medicine; Visit Provider Urology ==

== ENCOUNTER 2023-03-23 14:26 | Outpatient (CLI) | payer MEDICARE, SELFPAY ==
--- NOTE | 2023-03-23 14:00 | DI.RAD_ITS ---
Exam(s) XR HIP RT AP LAT ONLY EXAM: XR HIP RT AP LAT ONLY CLINICAL HISTORY: 1ST POST OP S/P IM FIXATION R FEMUR FX. TECHNIQUE: 2D digital imaging was performed. Two views COMPARISON: CR XR HIP RT COMPLETE AP PELVIS from 02/06/2023 FINDINGS: There is a question of of on increased displacement of the proximal femoral fracture versus differenc es in projection. The hardware appears unchanged. DATA REPOSITORY: RADIATION DOSE DELIVERED:
== END 2023-03-23 14:27 | disposition home or self-care (01) ==
LOC: DIORS 14:26
PROVIDERS: PCP Family Medicine; Referring Provider Family Medicine; Visit Provider Student in an Organized Health Care Education/Training Program
DX: S72.141D Displaced intertrochanteric fracture of right femur, subsequent encounter for closed fracture with routine healing; X58.XXXD Exposure to other specified factors, subsequent encounter
CPT/HCPCS: 73502

== ENCOUNTER 2023-04-11 10:23 | Emergency (ER) | payer MEDICARE, SELFPAY ==
[2023-04-11] VITALS (64 sets, daily range): BP systolic 151–189; BP diastolic 48–86; PULSE 82–97; RESP 17–20; TEMP 36.8; O2SAT 92–99
--- NOTE | 2023-04-11 10:45 | DI.RAD_ITS ---
Exam(s) XR FEMUR LT EXAM: XR FEMUR LT CLINICAL HISTORY: Fall, Hip pain. TECHNIQUE: 2D digital imaging was performed. COMPARISON: No exams were available for comparison FINDINGS: Four views. There appears to be a fracture of the left femoral neck. Difficult to assess accurately on these hugh ges. Additional views recommended or CT. IMPRESSION: As above. DATA REPOSITORY: RADIATION DOSE DELIVERED:
--- NOTE | 2023-04-11 10:45 | RT.EKG_ITS ---
APPROVED REPORT Exam: Resting ECG Reason for Exam: Fall, Hip fracture Patient Location: E HR:86 bpm ECG Measurements Heart Rate 86 AXIS WY 184 P 72 QRSd 98 QRS -7 QT 427 T 81 QTc 512 Conclusion Sinus rhythm...normal P axis, V-rate 60- 99 Prolonged QT interval...QTc >500mS sinus rhythm, normal axis, normal intervals, non ischemic
--- NOTE | 2023-04-11 10:45 | DI.RAD_ITS ---
Exam(s) XR PELVIS AP EXAM: XR PELVIS AP CLINICAL HISTORY: Fall, Hip pain. TECHNIQUE: 2D digital imaging was performed. COMPARISON: CR XR HIP RT COMPLETE AP PELVIS from 02/06/2023 FINDINGS: 3 views There has been interval ORIF of the right hip. However, there is now a acute displaced fracture of t he opposite-left femoral neck. No other pelvic fractures. No osseous lesions. IMPRESSION: Acute fracture of the left femoral neck with displacement. DATA REPOSITORY: RADIATION DOSE DELIVERED:
--- NOTE | 2023-04-11 10:49 | W.ED.GENAD ---
Discharge Plan Disposition Patient Disposition: Transfer-Acute Inpatient Care Specific Acute In Facility: [place] Condition: Stable Discharge Details Clinical Impression: Closed fracture of neck of left femur Primary Care Provider: Shawna Couch V ED Provider: Annabella Saleh Home Meds and New Rx's Prescriptions: No Action ascorbic acid (vitamin C) PO diclofenac sodium 1 % gel 2 g topical QID Rx Instructions: apply to single elbow, wrist or hand; for hand includes palm/fingers/back of hand methylphenidate HCl 5 mg tablet 5 mg PO BID MDD 10mg PRN (Reason: energy) Qty: 20 0RF Rx Instructions: take one pill, once or twice daily, as needed - Please use symptom log! If taking an afternoon dose, take before 2pm ropinirole 0.5 mg tablet 0.25 mg PO QHS Rx Instructions: administer 1-3 hours before bedtime memantine 10 mg tablet 10 mg PO BID Qty: 180 3RF gabapentin 300 mg capsule 300 mg PO QHS Refresh Contacts Drops 1 drp ophthalmic (eye) BID bupropion HCl [Wellbutrin SR] 100 mg tablet sustained-release 12 hr 100 mg PO BID Qty: 60 1RF Rx Instructions: dose increase to 100mg twice per day cyanocobalamin (vitamin B-12) 1,000 mcg capsule 1,000 mcg PO DAILY clobetasol 0.05 % cream 1 applic topical BID cholecalciferol (vitamin D3) 25 mcg (1,000 unit) capsule 25 mcg PO DAILY (DME) Oxygen Tank See Rx Instructions .Route Rx Instructions: As directed rivastigmine [Exelon Patch] 4.6 mg/24 hour patch 24 hour 4.6 mg TD DAILY Qty: 90 3RF aspirin [Aspirin Low-Strength] 81 MG tablet,chewable 81 mg PO DAILY Centrum Silver 1 EACH tablet 1 tab PO DAILY escitalopram oxalate 10 mg tablet 15 mg PO DAILY Tylenol PM 25-500 mg-mg/mL Solution 1 ml PO HS Fish Oil 1 EACH capsule 1 cap PO DAILY midodrine 10 mg tablet 10 mg PO TID Qty: 90 0RF Rx Instructions: do not give last dose of day after 6PM or within 4 hrs of bedtime fexofenadine 180 mg Tablet 180 mg PO DAILY Qty: 30 0RF fludrocortisone 0.1 mg Tablet 0.1 mg PO BID Qty: 60 0RF Discharge Data Discharge Date/Time-TO BE ENTERED AT DEPARTURE: 04/11/23 23:08 Medical Decision Making <Tran Magana NP - Last Filed: 04/14/23 08:09> 82-year-old female with past medical history of NSTEMI, hypotension, closed intertrochanteric fracture of the right hip, anxiety, insomnia presents to the ER with chief complaint of left hip pain. Patient just had a right hip replacement and was discharged from rehab went to sit on the commode today fell landing on her left hip. She does have external rotation and shortening and complaining of left hip pain. She was given a gram of Tylenol by EMS prior to arrival. She denies any headache or loss of consciousness no neck or back pain. Work-up ordered including EKG, Pearce, labs, x-ray of left femur and pelvis. I do suspect hip fracture. There is external rotation and shortening. Milligram of hydromorphone Zofran and normal saline at 150 ordered. EKG shows prolonged QT, Zofran DC'd. XR shows left femoral neck fracture. Care is to be handed off to oncoming provider Annabella MAGANA pending disposition, I do suspect transfer due to no ortho coverage at this time. Care accepted from Yasemin Magana nurse practitioner, patient has left femoral neck fracture, she had a complicated surgery and anesthesia during her recent admission for hip fracture and had significant hypotension needing transfer to tertiary care [facility] has declined patient secondary to capacity, of note [facility] has had all of her care at this facility in addition to [facility], she has a large ovarian mass which was noted on her last assessment which was believed to be contributing to her significant hypotension with moderate hydronephrosis, of note this is on patient's CT from 02/07/2023, she is currently under the care of [facility] and has not started chemotherapy, they have also not intervened this patient will need stress test prior to having his ovarian mass resected I then contacted [facility] who is unable to take the patient secondary to capacity [facility] was contacted and Dr. Fernando milian was able to accept this patient in transfer, he is aware that she may have a complicated recovery. With her left femoral neck fracture Of note, patient is DNR/DNI, she is willing to have this revoked with her surgery and daughter would like to have the DPOA invoked as patient was notably confused and unable to make decisions postoperatively Secondary to limited resources in the [facility] at this time, we will transfer patient by EMT, she has been stable through the 6-hour she has been at this facility and I will give her pain medications prior to transfer, the only issue that would necessitate medic is needed for analgesia at this time and I think the benefit of transferring patient outweighs the risk of associated pain at this time, she will be given medications prior to departure Medical Records Medical records reviewed: Yes I reviewed the patient's medical records. Imaging Data Radiologic Study: Imaging: X-Ray Radiologist's impression: PROCEDURE INFORMATION: Exam: XR Pelvis Exam date and time: 04/11/2023 2:02 PM Age: 82 years old Clinical indication: Injury or trauma; Fall; Fracture of pelvis \T\ hip; Right; Traumatic fracture; Neck of femur; Closed fracture TECHNIQUE: Imaging protocol: Radiologic exam of the pelvis. Views: 1 or 2 view. COMPARISON: CT ABDOMEN PELVIS W 02/07/2023 12:23 PM FINDINGS: Bones/joints: Acute displaced left femoral neck fracture. Healing displaced right proximal femur fracture with partially image surgical fixation hardware. Alignment is unchanged. Included portions of the hardware intact. No dislocation. Soft tissues: Unremarkable. IMPRESSION: Acute displaced left femoral neck fracture. Dictated and Authenticated by: Jose De Jesus Kathleen MD. Lab Data Lab results reviewed: Yes I reviewed the patient's lab results. Labs: Laboratory Tests Range/Units 04/11/23 04/11/23 04/11/23 11:32 11:32 11:32 WBC (4.4-10.8) 10^3/uL 7.07 RBC (3.93-5.22) 10^6/uL 4.20 Hgb (11.2-15.7) g/dL 11.7 Hct (36.0-46.0) % 36.2 MCV (80-95) fL 86 MCH (27.0-33.0) pg 27.9 MCHC (32.0-36.0) % 32.3 RDW (11.7-14.6) % 14.6 Plt Count (130-400) 10^3/uL 225 MPV (8.0-11.0) fL 8.9 Immature Gran % 0.8 Neutrophils % 84.1 Lymphocytes % 8.2 Monocytes % 4.7 Eosinophils % 1.8 Basophils % 0.4 Nucleated RBC % (0.0-0.3) % 0.0 Absolute Neutrophils (1.2-6.7) 10^3/uL 5.94 Absolute Lymphocytes (1.2-3.4) 10^3/uL 0.58 L Absolute Monocytes (0.1-0.8) 10^3/uL 0.33 Absolute Eosinophils (0.0-0.7) 10^3/uL 0.13 Absolute Basophils (0.0-0.2) 10^3/uL 0.03 PT (9.3-11.0) sec 10.4 INR (0.9-1.1) 1.0 APTT (21.5-31.9) sec 28.1 Sodium (136-145) mmol/L 136 Potassium (3.5-5.1) mmol/L 3.2 L Chloride (98-107) mmol/L 101 Carbon Dioxide (21.0-32.0) mmol/L 25.9 Anion Gap (3-11) mmol/L 9.1 BUN (7-18) mg/dL 8 Creatinine (0.55-1.02) mg/dL 0.7 Est GFR (CKD-EPI 2020) (mL/min/1.73m2) 86.83 Glucose (74-106) mg/dL 108 H Calcium (8.5-10.1) mg/dL 9.0 Total Bilirubin (0.2-1.0) mg/dL 0.6 AST (15-37) U/L 23 ALT (14-59) U/L 17 Alkaline Phosphatase (46-116) U/L 101 Total Protein (6.4-8.2) g/dL 7.4 Albumin (3.4-5.0) g/dL 3.3 L Urine Opiates Screen (Negative) Urine Methadone Screen (Negative) Ur Barbiturates Screen (Negative) Ur Tricyclics Screen (Negative) Ur Amphetamines Screen (Negative) U Benzodiazepines Scrn (Negative) Urine Cocaine Screen (Negative) Ur THC Screen (Negative) Range/Units 04/11/23 12:33 WBC (4.4-10.8) 10^3/uL RBC (3.93-5.22) 10^6/uL Hgb (11.2-15.7) g/dL Hct (36.0-46.0) % MCV (80-95) fL MCH (27.0-33.0) pg MCHC (32.0-36.0) % RDW (11.7-14.6) % Plt Count (130-400) 10^3/uL MPV (8.0-11.0) fL Immature Gran % Neutrophils % Lymphocytes % Monocytes % Eosinophils % Basophils % Nucleated RBC % (0.0-0.3) % Absolute Neutrophils (1.2-6.7) 10^3/uL Absolute Lymphocytes (1.2-3.4) 10^3/uL Absolute Monocytes (0.1-0.8) 10^3/uL Absolute Eosinophils (0.0-0.7) 10^3/uL Absolute Basophils (0.0-0.2) 10^3/uL PT (9.3-11.0) sec INR (0.9-1.1) APTT (21.5-31.9) sec Sodium (136-145) mmol/L Potassium (3.5-5.1) mmol/L Chloride (98-107) mmol/L Carbon Dioxide (21.0-32.0) mmol/L Anion Gap (3-11) mmol/L BUN (7-18) mg/dL Creatinine (0.55-1.02) mg/dL Est GFR (CKD-EPI 2020) (mL/min/1.73m2) Glucose (74-106) mg/dL Calcium (8.5-10.1) mg/dL Total Bilirubin (0.2-1.0) mg/dL AST (15-37) U/L ALT (14-59) U/L Alkaline Phosphatase (46-116) U/L Total Protein (6.4-8.2) g/dL Albumin (3.4-5.0) g/dL Urine Opiates Screen (Negative) Negative Urine Methadone Screen (Negative) Negative Ur Barbiturates Screen (Negative) Negative Ur Tricyclics Screen (Negative) Negative Ur Amphetamines Screen (Negative) Negative U Benzodiazepines Scrn (Negative) Negative Urine Cocaine Screen (Negative) Negative Ur THC Screen (Negative) Negative <CHINO Finch - Last Filed: 04/11/23 22:29> 82-year-old female with past medical history of NSTEMI, hypotension, closed intertrochanteric fracture of the right hip, anxiety, insomnia presents to the ER with chief complaint of left hip pain. Patient just had a right hip replacement and was discharged from rehab went to sit on the commode today fell landing on her left hip. She does have external rotation and shortening and complaining of left hip pain. She was given a gram of Tylenol by EMS prior to arrival. She denies any headache or loss of consciousness no neck or back pain. Work-up ordered including EKG, Pearce, labs, x-ray of left femur and pelvis. I do suspect hip fracture. There is external rotation and shortening. Milligram of hydromorphone Zofran and normal saline at 150 ordered. EKG shows prolonged QT, Zofran DC'd. XR shows left femoral neck fracture. Care accepted from Yasemin Magana nurse practitioner, patient has left femoral neck fracture, she had a complicated surgery and anesthesia during her recent admission for hip fracture and had significant hypotension needing transfer to tertiary care [facility] has declined patient secondary to capacity, of note [facility] has had all of her care at this facility in addition to [facility], she has a large ovarian mass which was noted on her last assessment which was believed to be contributing to her significant hypotension with moderate hydronephrosis, of note this is on patient's CT from 02/07/2023, she is currently under the care of [facility] and has not started chemotherapy, they have also not intervened this patient will need stress test prior to having his ovarian mass resected I then contacted [facility] who is unable to take the patient secondary to capacity [facility] was contacted and Dr. Fernando milian was able to accept this patient in transfer, he is aware that she may have a complicated recovery. With her left femoral neck fracture Of note, patient is DNR/DNI, she is willing to have this revoked with her surgery and daughter would like to have the DPOA invoked as patient was notably confused and unable to make decisions postoperatively Secondary to limited resources in the [facility] at this time, we will transfer patient by EMT, she has been stable through the 6-hour she has been at this facility and I will give her pain medications prior to transfer, the only issue that would necessitate medic is needed for analgesia at this time and I think the benefit of transferring patient outweighs the risk of associated pain at this time, she will be given medications prior to departure HPI <Tran Magana NP - Last Filed: 04/14/23 08:09> General Mode of arrival: EMS. Date/Time Provider Initiated Documentation: 04/11/23 10:40. Limitations to Documentation: no limitations. Information obtained by: patient, EMS, RN notes reviewed and old records reviewed. HPI Narrative: 82-year-old female with past medical history of NSTEMI, hypotension, closed intertrochanteric fracture of the right hip, anxiety, insomnia presents to the ER with chief complaint of left hip pain. Patient just had a right hip replacement and was discharged from rehab went to sit on the commode today fell landing on her left hip. She does have external rotation and shortening and complaining of left hip pain. She was given a gram of Tylenol by EMS prior to arrival. She denies any headache or loss of consciousness no neck or back pain. Related Data Home Medications Medication Instructions Recorded Confirmed aspirin 81 mg chewable tablet 81 mg PO DAILY 12/12/14 03/23/23 (Aspirin Low-Strength) [id number] acid 0.4 1 tab PO DAILY 12/12/14 03/23/23 mg-lycopene 300 mcg-lutein 250 mcg tablet (Centrum Silver) omega-3 fatty acids-fish oil 340 1 cap PO DAILY 08/02/17 03/23/23 mg-1,000 mg capsule (Fish Oil) cholecalciferol (vitamin D3) 25 25 mcg PO DAILY 01/09/21 03/23/23 mcg (1,000 unit) capsule clobetasol 0.05 % topical cream 1 applic topical BID 01/09/21 03/23/23 cyanocobalamin (vitamin B-12) 1,000 mcg PO DAILY 01/09/21 03/23/23 1,000 mcg capsule fexofenadine 180 mg tablet 180 mg PO DAILY #30 tabs 03/19/22 03/23/23 fludrocortisone 0.1 mg tablet 0.1 mg PO BID #60 tabs 03/19/22 03/23/23 midodrine 10 mg tablet 10 mg PO TID #90 tabs 03/19/22 03/23/23 Oxygen 05/20/22 03/23/23 bupropion HCl 100 mg tablet,12 hr 100 mg PO BID #60 tabs 08/04/22 03/23/23 sustained-release (Wellbutrin SR) carboxymethylcellulose sodium 1 drp ophthalmic (eye) BID 08/04/22 03/23/23 (Refresh Contacts eye drops) gabapentin 300 mg capsule 300 mg PO QHS 08/04/22 03/23/23 memantine 10 mg tablet 10 mg PO BID #180 tabs 08/28/22 03/23/23 ropinirole 0.5 mg tablet 0.25 mg PO QHS 08/28/22 03/23/23 rivastigmine 4.6 mg/24 hour 4.6 mg transdermal DAILY #90 ea 09/01/22 03/23/23 transdermal patch (Exelon Patch) ascorbic acid (vitamin C) PO 02/02/23 03/23/23 diclofenac sodium 1 % topical gel 2 g topical QID 02/02/23 03/23/23 methylphenidate HCl 5 mg tablet 5 mg PO BID PRN energy #20 tabs 02/02/23 03/23/23 diphenhydramine 25 1 ml PO HS 02/06/23 03/23/23 mg-acetaminophen 500 mg/15 mL oral solution escitalopram oxalate 10 mg tablet 15 mg PO DAILY 02/06/23 03/23/23 Previous Rx's Medication Instructions Recorded fexofenadine 180 mg tablet 180 mg PO DAILY #30 tabs 03/19/22 fludrocortisone 0.1 mg tablet 0.1 mg PO BID #60 tabs 03/19/22 midodrine 10 mg tablet 10 mg PO TID #90 tabs 03/19/22 bupropion HCl 100 mg tablet,12 hr 100 mg PO BID #60 tabs 08/04/22 sustained-release (Wellbutrin SR) memantine 10 mg tablet 10 mg PO BID #180 tabs 08/28/22 rivastigmine 4.6 mg/24 hour 4.6 mg transdermal DAILY #90 ea 09/01/22 transdermal patch (Exelon Patch) methylphenidate HCl 5 mg tablet 5 mg PO BID PRN energy #20 tabs 02/02/23 Allergies Allergy/AdvReac Type Severity Reaction Status Date / Time hydroxyzine Allergy Severe Pt states Verified 03/23/23 13:53 lips and eyes swell up cetirizine [From Zyrtec] Allergy Mild Verified 03/23/23 13:53 rivastigmine [From Exelon] Allergy Mild Nausea and Verified 03/23/23 13:53 rash sertraline Allergy Unknown Verified 03/23/23 13:53 donepezil HCl [From Aricept] AdvReac Mild Nausea Verified 03/23/23 13:53 General Stated Complaint: Fall/Non TraumaCriteria KAILASH: 3 Review of Systems <Tran Magana NP - Last Filed: 04/14/23 08:09> All systems reviewed & are unremarkable except as noted in HPI and below Musculoskeletal Musculoskeletal: Reports as per HPI and Reports arthralgias PFSH <Tran Magana NP - Last Filed: 04/14/23 08:09> All Active Problems (Updated 04/14/23 @ 08:09 by Tran Magana NP) Closed fracture of neck of left femur (Acute) Hematoma of right thigh (Acute) NSTEMI (non-ST elevated myocardial infarction) (Acute) Hydronephrosis, right (Acute) Pelvic mass (Acute) Hypotension (Acute) Intra-abdominal fluid (Acute) Closed intertrochanteric fracture of right hip (Acute) S/P IM FIXATION 02/07/23 Anxiety (Chronic) ACP (advance care planning) (Acute) Restless leg syndrome (Acute) Insomnia (Acute) Orthostatic hypotension (Chronic) Anxiety with depression (Chronic) Idiopathic peripheral neuropathy (Acute) Idiopathic peripheral autonomic neuropathy (Acute) Memory loss (Acute) Abrasion of face (Acute) Facial contusion (Acute) 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 (Acute) Conductive hearing loss, external ear (Acute) Sensorineural hearing loss of both ears (Acute) Dysphagia (Acute) Dyspnea on exertion (Acute) Mild chronic gastritis (Chronic) Normal colonoscopy (Acute) Urticaria, chronic (Chronic) Dyspnea (Acute) Anxiety about health (Acute) Palliative care patient (Acute) Goals of care, counseling/discussion (Acute) MCI (mild cognitive impairment) (Acute) POLST (Physician Orders for Life-Sustaining Treatment) (Chronic) signed 01/22/21 FULL CODE Health care proxy on file (Chronic) Nahomi Breaux, daughter Alzheimer's dementia (Chronic) very mild Impacted cerumen, bilateral (Acute) Lack of motivation (Acute) Pre-syncope (Acute) Dizziness (Acute) Sinus bradycardia (Acute) Fear of (Acute) Impaired instrumental activities of daily living (Acute) Need for home health care (Acute) Medical History Allergic rhinitis Bilateral leg pain Bilateral leg weakness Cold feet Dementia mild Dizziness Fatigue Frequent PVCs Gastritis Hearing loss Hives Hx of bronchitis Hx of migraines Iliotibial band friction syndrome of both knees Ingrown toenail Insect bite Knee joint pain Lung nodule Migraine Myalgia Nail abnormality Obstructive sleep apnea Onychomycosis Osteoporosis Pain in left shoulder Palpitations Paroxysmal SVT (supraventricular tachycardia) Pelvic floor instability Peripheral neuropathy Raynauds syndrome Tubular adenoma Surgical History H/O foot surgery r foot surgerly H/O knee surgery L knee surgery-patella History of colonoscopy Hx of tonsillectomy Family History Mother , age 86 from dementia with hallucinations ? lewy body Dementia Father , age 89 from prostate cancer and malnutrition Prostate cancer Malnutrition Sister , age 80 from dementia, unspecified type Dementia Daughter No problems noted. Son No problems noted. 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 Do you think of yourself as: straight/heterosexual Current gender identity: female What is your relationship status?: How often do you talk on the phone with friends or family?: three or more times per week How often do you get together with friends or relatives?: three or more times per week Panel score (0-1 are the most socially isolated patients): 2 What type of physical activity do you participate in: walking Duration: < 15 minutes/day Frequency: does not exercise Special antoinette needs: No Seatbelt use: always Do you feel safe at home: Yes Do you feel safe in your relationship?: Yes Exam <Tran Magana NP - Last Filed: 04/14/23 08:09> Narrative Exam Narrative: Constitutional: Alert and oriented x3. Appears stated age. Normal body habitus. Head: Normocephalic, no trauma. Eyes: Pupils PERRL, Red reflex noted, EOM's intact. Eyelids symmetrical without lesions, discharge, or swelling. ENT: Bilateral TM's WNL, External ear normal to inspection, no mastoid TTP, swelling, or erythema, Nasal turbinates WNL, no nasal discharge. Normal dentition, Posterior pharynx WNL, no exudate. Chest: RRR, Normal S1, S2, distal pulses intact. Resp: Lungs clear to auscultation bilaterally, no wheezes, rales, or rhonchi. Abdomen: Soft, non-distended, Normoactive bowel sounds all 4 quads. Musculoskeletal: Unable to assess gait, does have some external rotation shortening of her left leg. She does have 3+ pitting edema noted to her bilateral lower extremities Skin: No suspicious rashes or lesions. Capillary refill less than 2 sec. Neurologic: Cranial nerves II-XII intact. Alert and oriented x 3. Motor: No deficits noted. Sensory: Intact bilaterally all 4 extremities. Hematologic/Lymphatic: No ecchymosis, no lymphadenopathy. Extrem Right lower extremity: hip/thigh Details: tenderness and other (External rotation, shortening) Course <Tran Magana NP - Last Filed: 04/14/23 08:09> Vital Signs Vital signs: Vital Signs Temperature 36.8 C 04/11/23 10:32 Pulse 83 04/11/23 10:32 Respiratory Rate 18 04/11/23 10:32 Blood Pressure 177/80 H 04/11/23 10:32 Pulse Oximetry 99 04/11/23 10:32 Temperature 36.8 C 04/11/23 10:32 Temperature Source Oral 04/11/23 10:32 Pulse 83 04/11/23 10:32 Respiratory Rate 18 04/11/23 10:32 Blood Pressure 177/80 H 04/11/23 10:32 Blood Pressure Position Supine 04/11/23 10:32 Pulse Oximetry 99 04/11/23 10:32 Oxygen Delivery Method Room Air 04/11/23 10:32 Oxygen Flow Rate 0 04/11/23 10:32 Pain Level 8 04/11/23 10:32 Sign Out <Tran Magana NP - Last Filed: 04/14/23 08:09> Sign Out Data: Sign Out Comment: Pending transfer to facility with Ortho capabilities. Last updated by Tran Magana NP at 04/11/23 15:48
[2023-04-11 11:39] LABS: Abs Immature Grans 0.06 10^3/uL (0.0-0.06); Absolute Basophil Count 0.03 10^3/uL (0.0-0.2); Absolute Eosinophil Count 0.13 10^3/uL (0.0-0.7); Absolute Lymphocyte Count 0.58 10^3/uL (1.2-3.4); Absolute Monocyte Count 0.33 10^3/uL (0.1-0.8); Absolute Neutrophil Count 5.94 10^3/uL (1.2-6.7); Basophils % 0.4; Eosinophils % 1.8; HCT 36.2 % (36.0-46.0); HGB 11.7 g/dL (11.2-15.7); Immature Grans % 0.8; Lymphocytes % 8.2; MCH 27.9 pg (27.0-33.0); MCHC 32.3 % (32.0-36.0); MCV 86 fL (80-95); MPV 8.9 fL (8.0-11.0); Monocytes % 4.7; Neutrophils % 84.1; Platelet Count 225 10^3/uL (130-400); RDW 14.6 % (11.7-14.6); RDW-SD 46.2 fL; WBC 7.07 10^3/uL (4.4-10.8)
[2023-04-11] MEDS: Normal Saline 50 ML (11:50)
[2023-04-11] MEDS: HYDROmorphone 2 MG/ML SYR 1 MG IVP (11:50)
[2023-04-11 11:55] LABS: ALT 17 U/L (14-59); AST 23 U/L (15-37); Albumin 3.3 g/dL (3.4-5.0); Alkaline Phosphatase 101 U/L (46-116); Anion Gap 9.1 mmol/L (3-11); BUN 8 mg/dL (7-18); Bilirubin, Total 0.6 mg/dL (0.2-1.0); CO2 25.9 mmol/L (21.0-32.0); CREATININE 0.7 mg/dL (0.55-1.02); Chloride 101 mmol/L (98-107); Estimated GFR 86.83 (mL/min/1.73m2); Glucose 108 mg/dL (74-106); PTT Activated 28.1 sec (21.5-31.9); Potassium 3.2 mmol/L (3.5-5.1); Prothrombin Time 10.4 sec (9.3-11.0); Sodium 136 mmol/L (136-145); Total Protein 7.4 g/dL (6.4-8.2)
[2023-04-11] MEDS: Normal Saline 1,000 ML 150 ML IV (12:43)
[2023-04-11 12:57] LABS: *AMPHETAMINES SCREEN URINE Negative (Negative); *BARBITURATES SCREEN URINE Negative (Negative); *BENZODIAZEPINES SCREEN URINE Negative (Negative); Cannabinoids THC Negative (Negative); Cocaine Screen,Urine Negative (Negative); METHADONE URINE SCREEN Negative (Negative); OPIATES URINE SCREEN Negative (Negative)
[2023-04-11 13:01] LABS: Tricyclic Antidepressants Negative (Negative)
[2023-04-11] MEDS: HYDROmorphone 2 MG/ML SYR 0.5 MG IVP ×2 (13:31→16:30)
--- NOTE | 2023-04-11 15:18 | DI.VRAD_ITS ---
PROCEDURE INFORMATION: Exam: XR Left Femur Exam date and time: 04/11/2023 2:04 PM Age: 82 years old Clinical indication: Injury or trauma; Fall; Fracture, traumatic; Closed fracture; Left; Prior surgery; Surgery date: <1 month; Surgery type: Right hip FX TECHNIQUE: Imaging protocol: Radiologic exam of the left femur. Views: 2 views. COMPARISON: CR XR PELVIS AP 04/11/2023 2:02 PM FINDINGS: Bones/joints: Displaced left femoral neck fracture. No dislocation. Soft tissues: Unremarkable. IMPRESSION: Acute displaced left femoral neck fracture. Dictated and Authenticated by: Jose De Jesus Kathleen MD. Ordering:ERIKA Mayfield MD
--- NOTE | 2023-04-11 15:20 | DI.VRAD_ITS ---
PROCEDURE INFORMATION: Exam: XR Pelvis Exam date and time: 04/11/2023 2:02 PM Age: 82 years old Clinical indication: Injury or trauma; Fall; Fracture of pelvis \T\ hip; Right; Traumatic fracture; Neck of femur; Closed fracture TECHNIQUE: Imaging protocol: Radiologic exam of the pelvis. Views: 1 or 2 view. COMPARISON: CT ABDOMEN PELVIS W 02/07/2023 12:23 PM FINDINGS: Bones/joints: Acute displaced left femoral neck fracture. Healing displaced right proximal femur fracture with partially image surgical fixation hardware. Alignment is unchanged. Included portions of the hardware intact. No dislocation. Soft tissues: Unremarkable. IMPRESSION: Acute displaced left femoral neck fracture. Dictated and Authenticated by: Jose De Jesus Kathleen MD. Ordering:ERIKA Mayfield MD
[2023-04-11] MEDS: ACETAMINOPHEN 1,000 MG/100 ML BTL 400 MG IVPB (17:47)
[2023-04-11] MEDS: MORPHine 10 MG/ML VIAL 3 MG IVP (18:46)
[2023-04-11] MEDS: oxyCODONE 5 MG TAB PO ×2 (18:46→22:27)
[2023-04-11] MEDS: MORPHine 4 MG/ML SYR IVP (22:27)
== END 2023-04-11 23:08 | disposition short-term general hospital (02) ==
PROVIDERS: Registered Nurse Emergency; Emergency Provider Physician Assistant; PCP Family Medicine
DX: S72.002A Fracture of unspecified part of neck of left femur, initial encounter for closed fracture (principal); W19.XXXA Unspecified fall, initial encounter
CPT/HCPCS: 36415; 73552; 80053; 80307; 93005; 96361; 96365; 96375; 96376; 99285; 72170; 85025; 85610; 85730; 93010; J0131; J1170; J2270

== ENCOUNTER 2023-06-11 13:05 | Outpatient (REF) | payer MEDICARE, SELFPAY ==
[2023-06-11 13:32] LABS: HCT 37.3 % (36.0-46.0)
[2023-06-11 14:04] LABS: Ferritin 183 ng/mL (8-252)
== END 2023-06-11 13:06 | disposition home or self-care (01) ==
LOC: NCHCN 13:05
PROVIDERS: PCP Family Medicine; Visit Provider Family Medicine
DX: R53.83 Other fatigue (principal)
CPT/HCPCS: 82728; 85014; 85018